=== PATIENT | female | born 1950 | race Caucasian/White ===

== ENCOUNTER → 2021-06-14 | Outpatient (CLI) | payer MEDICARE ==
--- NOTE | 2021-06-16 15:03 | MM ---
Reason for exam: screening (asymptomatic). Last mammogram was performed 14 years and 4 months ago. History: Patient is postmenopausal. Family history of breast cancer in mother at age 65, breast cancer in maternal aunt at age 55, and breast cancer in maternal uncle. Benign excisional biopsy of the left breast, 2005. Benign excisional biopsy of the left breast, 1990. Physical Findings: A clinical breast exam by your physician is recommended on an annual basis and results should be correlated with mammographic findings. MG 3D Screening Mammo W/Cad Bilateral CC and MLO view(s) were taken. Prior study comparison: February 14, 2007, mammogram, performed at [facility]. There are scattered fibroglandular densities. Post surgical change left breast. No significant changes when compared with prior studies. ASSESSMENT: Negative, BI-RAD 1 RECOMMENDATION: Routine screening mammogram of both breasts in 1 year.
== END | disposition home or self-care (01) ==
LOC: RADMAMWWP 14:12
PROVIDERS: ATTEND Family Medicine
DX: Z12.31 Encounter for screening mammogram for malignant neoplasm of breast (principal); Z80.3 Family history of malignant neoplasm of breast; Z78.0 Asymptomatic menopausal state
CPT/HCPCS: 77063; 77067

== ENCOUNTER → 2021-11-08 | Outpatient (CLI) | payer MEDICARE ==
--- NOTE | 2021-11-08 10:21 | US ---
EXAMINATION TYPE: US pelvis complete transvag DATE OF EXAM: 11/08/2021 COMPARISON: NONE CLINICAL HISTORY: R10.30. Pain throughout pelvis. . Hx 1 miscarriage. TECHNIQUE: Transvaginal (TV) and Transabdominal (TA) . Transabdominal sonographic images of the pel vis were acquired. Transvaginal sonographic images were medically necessary to better assess the fol lowing anatomy: Ovaries, endometrium. Date of LMP: Age 54. EXAM MEASUREMENTS: Uterus: 6.7 x 3.9 x 2.4 cm Endometrial Stripe: 0.42 cm 1. Uterus: Anteverted Appears heterogeneous. Hyperechoic area seen in cervix: 0.1 x 0.1 x 0.1 cm. H ypoechoic area seen in cervix: 0.3 x 0.6 x 0.6 cm. Slightly limited visibility of cervix due to shad owing. 2. Endometrium: Measures 0.42 cm. 3. Right Ovary: Not visualized. 4. Left Ovary: Not visualized. 5. Bilateral Adnexa: Appear wnl. Bowel peristalsis seen throughout. 6. Posterior cul-de-sac: Fluid seen: 1.3 x 1.8 x 0.7 cm. IMPRESSION: 1. Small amount of free fluid within the cul-de-sac. 2. Limited visualization due to bowel gas. Ovaries are not identified. 3. Punctate echogenic foci within the region of the cervix uncertain etiology. Consider calcification . Complementary imaging could be considered such as MRI.
--- NOTE | 2021-11-08 10:45 | US ---
EXAMINATION TYPE: US abdomen complete DATE OF EXAM: 11/08/2021 COMPARISON: NONE CLINICAL HISTORY: R10.30. Pain. EXAM MEASUREMENTS: Liver Length: 13.5 cm Gallbladder Wall: 0.19 cm CBD: 0.56 cm Spleen: 9.2 cm Right Kidney: 11.2 x 5.2 x 4.1 cm Left Kidney: 11.9 x 5.2 x 4.3 cm Limited due to gas. Pancreas: Duct measures 2 mm at body which is normal. Liver: Appears wnl. Gallbladder: Hyperechoic focus seen: 1.0 x 1.2 x 0.9 cm. And is likely a shadowing gallstone. Evidence for sonographic Anderson's sign: No CBD: Measures upper limits of normal. Spleen: Appears wnl. Right Kidney: Renal pelvis appears dilated. Hyperechoic focus seen lower pole: 1.1 x 0.9 x 0.8 cm. Anechoic area seen lower pole: 1.2 x 1.2 x 1.0 cm. Left Kidney: Renal pelvis appears dilated. Two hyperechoic foci seen, largest measures: 0.4 x 0.6 x 0.4 cm. Upper IVC: Appears wnl. Abd Aorta: Proximal appears to be ectatic measuring 2.6 cm AP at proximal segment. IMPRESSION: 1. Cholelithiasis.
== END | disposition home or self-care (01) ==
LOC: RADUSWWP 08:56
PROVIDERS: ATTEND Family Medicine
DX: K80.20 Calculus of gallbladder without cholecystitis without obstruction (principal); R93.89 Abnormal findings on diagnostic imaging of other specified body structures
CPT/HCPCS: 76700; 76830; 76856

== ENCOUNTER → 2021-12-08 | Outpatient (CLI) | payer MEDICARE ==
--- NOTE | 2021-12-08 10:58 | CT ---
EXAMINATION TYPE: CT ChestAbdPelvis w con, CT chest wo con DATE OF EXAM: 12/08/2021 COMPARISON: Ultrasound abdomen and pelvis November 08, 2021 HISTORY: Abnormal weight loss, Abdominal pain (accession [id number]), COPD (accession [id number]) CT DLP: 483.4 (accession [id number]), 114.90 (accession [id number]) mGycm. Automated Exposure Control for Dose Reduction was Utilized. CONTRAST: CT thorax without contrast. CT scan of the thorax, abdomen and pelvis is performed with oral and with IV Contrast, patient inject ed with 100 mL of Isovue 300. FINDINGS: LUNGS: The lungs are grossly clear, there is no concerning parenchymal mass or nodule identified. T here is no pleural effusion or pneumothorax seen. The tracheobronchial tree is patent. MEDIASTINUM: There are no greater than 1 cm hilar or mediastinal lymph nodes. Small to moderate size pericardial effusion is seen greatest inferiorly measuring up to 2.5 cm axial image 44 series 2. Mil d cardiomegaly. Mild coronary artery calcifications. Dilated debris-filled esophagus with contrast distally OTHER: Bilateral inverted nipples. LIVER/GB: No biliary dilatation. PANCREAS: No significant abnormality is seen. SPLEEN: No significant abnormality is seen. ADRENALS: No significant abnormality is seen. KIDNEYS: There is 3-4 mm nonobstructing calculus upper pole left kidney coronal image 59. There is la rger 8 to 9 mm calculus lower pole right kidney coronal image 46. A few additional scattered small le ft-sided renal calculi are seen. There is 8 mm benign-appearing thin-walled cyst posteriorly in the r ight kidney lower pole level series 4 image 33. Symmetric cortical medullary uptake and excretion is seen. BOWEL: Oral contrast reaches level of the mid transverse colon. No suspicious small or large bowel di latation. Moderate fecal prominence in the transverse colon. Evaluation is suboptimal as patient has little intra-abdominal fat. GENITAL ORGANS: Anteverted small size uterus. LYMPH NODES: No greater than 1cm abdominal or pelvic lymph nodes are appreciated. OSSEOUS STRUCTURES: Osseous structures are demineralized. Nonspecific tiny sclerotic focus T8 vertebr a coronal image 57 favors benign bone island. Facet arthropathy lower lumbar spine. OTHER: No significant additional abnormality is seen. IMPRESSION: 1. Mild to moderate colonic fecal stasis. No bowel obstruction. 2. No suspicious mass or adenopathy to suggest malignancy. 3. Bilateral renal calculi. 4. Abnormal esophagus suggesting severe dysmotility and/or gastroesophageal reflux. Correlate clinica lly. 5. Small to moderate-sized pericardial effusion.
== END | disposition home or self-care (01) ==
LOC: RADCTMAIN 07:27
PROVIDERS: ATTEND Internal Medicine Pulmonary Disease
DX: N20.0 Calculus of kidney (principal); I31.3 Pericardial effusion (noninflammatory); K59.89 Other specified functional intestinal disorders
CPT/HCPCS: 71250; 71260; 74177; 36415; Q9967

== ENCOUNTER → 2021-12-08 | Outpatient (CLI) | payer MEDICARE ==
[2021-12-08 08:18] LABS: African American GFR (CKD) >90 (>60 ml/min/1.73 sqM); Blood Urea Nitrogen 16 mg/dL (7-17); Non-African American GFR(CKD) 81 (>60 ml/min/1.73 sqM)
== END | disposition home or self-care (01) ==
LOC: RADCTMAIN 07:25
PROVIDERS: ATTEND Family Medicine
DX: R63.4 Abnormal weight loss (principal)
CPT/HCPCS: 82565; 84520

== ENCOUNTER 2022-03-15 08:34 | Day surgery (SDC) | payer MEDICARE ==
[2022-03-13 08:44] VITALS: BMI 23.6
--- NOTE | 2022-03-15 08:05 | P.GSHP ---
History of Present Illness H&P Date: 03/15/22 CHIEF COMPLAINT: Colon screen HISTORY OF PRESENT ILLNESS: The patient is a 71-year-old female who presents for colon screen. Lower endoscopy was offered for further evaluation and management. PAST MEDICAL HISTORY: Please see list. PAST SURGICAL HISTORY: Please see list. MEDICATIONS: Please see list. ALLERGIES: Please see list. SOCIAL HISTORY: No illicit drug use FAMILY HISTORY: No reports of Crohn disease or ulcerative colitis. REVIEW OF ORGAN SYSTEMS: CONSTITUTIONAL: No reports of fevers or chills. PHYSICAL EXAM: VITAL SIGNS: Stable GENERAL: Well-developed pleasant in no acute distress. HEENT: No scleral icterus. Extraocular movements grossly intact. Moist buccal mucosa. NECK: Supple without lymphadenopathy. CHEST: Unlabored respirations. Equal bilateral excursions. CARDIOVASCULAR: Regular rate and rhythm. Distal 2+ pulses. ABDOMEN: Soft, nontender, nondistended. MUSCULOSKELETAL: No clubbing, cyanosis, or edema. ASSESSMENT: 1. Colon screen. PLAN: 1. Recommend proceeding with a lower endoscopy Past Medical History Past Medical History: GERD/Reflux Additional Past Medical History / Comment(s): migraines, food gets stuck when swallowing, unexplained wt loss, hx episodes of lower abdomen pain, hemmorhoids, gallstone, History of Any Multi-Drug Resistant Organisms: None Reported Past Surgical History: Breast Surgery Additional Past Surgical History / Comment(s): left breast lumpectomy x 2, Past Anesthesia/Blood Transfusion Reactions: No Reported Reaction Smoking Status: Former smoker - Past Family History Brother(s) Family Medical History: Pulmonary Embolus Medications and Allergies Home Medications Medication Instructions Recorded Confirmed Type Omeprazole Magnesium [PriLOSEC] 20 mg PO QAM 11/04/21 03/13/22 History Multivit-Min/FA/Lycopen/Lutein 1 each PO DAILY 03/13/22 03/13/22 History [Centrum Silver Tablet] Allergies Allergy/AdvReac Type Severity Reaction Status Date / Time No Known Allergies Allergy Verified 03/13/22 08:36
[~2022-03-15 08:34] MED LIST: LACTATED RINGERS 1,000 ML IV SCH; LIDOCAINE 1% (10MG/ML) FOR IV START INTRADERMA PRN
[2022-03-15 09:18] VITALS: RESP 16; TEMP 98.4
[2022-03-15] MEDS ORDERED: PROPOFOL 10 MG/ML 20 ML VIAL IV ONE (09:23)
--- NOTE | 2022-03-15 10:27 | P.PCN ---
Date of Procedure: 03/15/22 Description of Procedure: PREOPERATIVE DIAGNOSIS: Colonoscopy screening POSTOPERATIVE DIAGNOSIS: Tubular adenoma transverse colon Tubular adenoma sigmoid colon Sigmoid diverticulosis Internal hemorrhoids, grade 4 External hemorrhoids, grade 4 OPERATION: Colonoscopy to the ileocecal valve and appendiceal orifice, cecum Colonoscopy with hot snare polypectomy Colonoscopy with cold forceps biopsy SURGEON: Mignon Link MD. ANESTHESIA: MAC. INDICATIONS: The patient is an 71-year-old female who presents for colonoscopy screening. Benefits and risks were described and informed consent was obtained. DESCRIPTION OF PROCEDURE: The patient had undergone Sutab prep. The patient had been brought into the operating room and laid in the left lateral decubitus position. After adequate intravenous sedation, the rectum was examined with 2% lidocaine jelly. The prostate was unremarkable. External hemorrhoids were encountered. The rectal tone was within normal limits. No lesions were palpated in the rectal vault. An Olympus colonoscope was advanced until the cecum, ileocecal valve and appendi ceal orifice were clearly viewed. The prep was fair. Sigmoid diverticulosis was encountered. Colonic polyps were found and removed. No evidence of focal colitis was found. Retroflexion of the scope demonstrated grade 2 internal hemorrhoids without active bleeding or inflammation. The colon was desufflated. The patient had tolerated the procedure well. Withdrawal time was over 6 minutes. FINDINGS: Aronchick preparation quality scale 1 (1-5) Internal hemorrhoids, grade 4 with recent inflammation and bleeding External hemorrhoids, grade 4. No arteriovenous malformations. Sigmoid diverticulosis Removal of 5 polyps: - Snare polypectomy 20 cm from the anal verge, 5 mm tubulovillous adenoma polyp, sigmoid colon - Snare polypectomy 15 x 2 cm from the anal verge, 4 to 5 mm flat villous alisha noma polyp, sigmoid colon - Snare polypectomy at 10 cm from the anal verge, 4 mm polyp, sigmoid colon - Cold forceps biopsy at mid transverse colon, 5 mm polyp. No focal colitis. RECOMMENDATIONS: Repeat colonoscopy in 3 years, 2024 Plan - Discharge Summary New Discharge Prescriptions: Continue Omeprazole Magnesium [PriLOSEC] 20 mg PO QAM Multivit-Min/FA/Lycopen/Lutein [Centrum Silver Tablet] 1 each PO DAILY Discharge Medication List Omeprazole Magnesium [PriLOSEC] 20 mg PO QAM 11/04/21 [History] Multivit-Min/FA/Lycopen/Lutein [Centrum Silver Tablet] 1 each PO DAILY 03/13/22 [History] Follow up Appointment(s)/Referral(s): Mignon Link MD [STAFF PHYSICIAN] - As Needed Patient Instructions/Handouts: *Surgery [facility] - (Anesthesia) Endoscopy Discharge Instructions, Diverticulosis (DC), Colorectal Polyps (GEN), Diverticulosis Diet (GEN), Colonoscopy (DC) Activity/Diet/Wound Care/Special Instructions: Colonoscopy in 3 years, 2024 Discharge Disposition: HOME SELF-CARE
[2022-03-15 10:52] VITALS: BP 163/86; PULSE 71
== END 2022-03-15 10:50 | disposition home or self-care (01) ==
LOC: ORWHC2ENDO 08:34
PROVIDERS: ATTEND Surgery Plastic and Reconstructive Surgery
DX: Z12.11 Encounter for screening for malignant neoplasm of colon (principal); D12.3 Benign neoplasm of transverse colon; K63.5 Polyp of colon; K57.30 Diverticulosis of large intestine without perforation or abscess without bleeding; K64.3 Fourth degree hemorrhoids; K21.9 Gastro-esophageal reflux disease without esophagitis; F17.200 Nicotine dependence, unspecified, uncomplicated; G43.909 Migraine, unspecified, not intractable, without status migrainosus; Z79.899 Other long term (current) drug therapy; Z82.49 Family history of ischemic heart disease and other diseases of the circulatory system
CPT/HCPCS: 88305; 45380; 45385; J2704

== ENCOUNTER 2022-05-04 07:57 | Day surgery (SDC) | payer MEDICARE ==
--- NOTE | 2022-05-04 07:41 | P.GSHP ---
History of Present Illness H&P Date: 05/04/22 CHIEF COMPLAINT: GERD HISTORY OF PRESENT ILLNESS: The patient is a 72-year-old female who presents reports gastroesophageal reflux disease. Upper endoscopy was offered for further evaluation and management. PAST MEDICAL HISTORY: Please see list. PAST SURGICAL HISTORY: Please see list. MEDICATIONS: Please see list. ALLERGIES: Please see list. SOCIAL HISTORY: No illicit drug use FAMILY HISTORY: No reports of Crohn disease or ulcerative colitis. REVIEW OF ORGAN SYSTEMS: CONSTITUTIONAL: No reports of fevers or chills. GI: Denies any blood in stools or constipation. PHYSICAL EXAM: VITAL SIGNS: Stable GENERAL: Well-developed and pleasant in no acute distress. HEENT: No scleral icterus. Extraocular movements grossly intact. Moist buccal mucosa. NECK: Supple without lymphadenopathy. CHEST: Unlabored respirations. Equal bilateral excursions. CARDIOVASCULAR: Regular rate and rhythm. Distal 2+ pulses. ABDOMEN: Soft, nondistended. MUSCULOSKELETAL: No clubbing, cyanosis, or edema. ASSESSMENT: 1. Gastroesophageal reflux disease PLAN: 1. Recommend proceeding with an upper endoscopy Past Medical History Past Medical History: GERD/Reflux Additional Past Medical History / Comment(s): MigraineS. Food gets stuck when swallowing. hx ABD PAIN. HEMMROIDS gallstone, History of Any Multi-Drug Resistant Organisms: None Reported Past Surgical History: Breast Surgery Additional Past Surgical History / Comment(s): left breast lumpectomy x 2. Past Anesthesia/Blood Transfusion Reactions: No Reported Reaction Past Psychological History: No Psychological Hx Reported Smoking Status: Former smoker Past Alcohol Use History: Occasional Additional Past Alcohol Use History / Comment(s): last smoked 03/12/22, started smoking age 25, on and off Past Drug Use History: None Reported - Past Family History Brother(s) Family Medical History: Pulmonary Embolus Medications and Allergies Home Medications Medication Instructions Recorded Confirmed Type Omeprazole Magnesium [PriLOSEC] 20 mg PO QAM 11/04/21 05/02/22 History Allergies Allergy/AdvReac Type Severity Reaction Status Date / Time No Known Allergies Allergy Verified 05/02/22 11:12
[~2022-05-04 07:57] MED LIST changes: -LIDOCAINE 1% (10MG/ML) FOR IV START INTRADERMA PRN
[2022-05-04] MEDS ORDERED: LIDOCAINE 1% (10MG/ML) FOR IV START INTRADERMA ONE (08:30)
[2022-05-04 08:37] VITALS: RESP 16; TEMP 97.5
[2022-05-04] MEDS ORDERED: LIDOCAINE 2% INJ 20 MG/ML (2 ML VIAL) ONE (08:43)
[2022-05-04] MEDS ORDERED: PROPOFOL 10 MG/ML 20 ML VIAL IV ONE (08:43)
[2022-05-04 09:11] VITALS: BP 125/78; PULSE 70
--- NOTE | 2022-05-04 09:32 | P.PCN ---
Date of Procedure: 05/04/22 Description of Procedure: PREOPERATIVE DIAGNOSIS: Gastroesophageal reflux disease. POSTOPERATIVE DIAGNOSIS: Gastroesophageal reflux disease. Acute gastric ulcers with bleeding Diaphragmatic hiatal hernia Gastritis of bleeding Esophageal candidiasis OPERATION: Esophagogastroduodenoscopy with biopsies along antrum, duodenum, and esophagus SURGEON: Mignon Link MD ANESTHESIA: MAC. INDICATIONS: The patient is a 72-year-old female who presents with reflux disease. Benefits and risks of the procedure were described. Informed consent was obtained. DESCRIPTION: The patient was brought into the endoscopy suite and laid in the left lateral decubitus position. An Olympus gastroscope was passed along the posterior oropharynx down to the distal esophagus where the squamocolumnar junction was encountered at 37 cm from the incisors. The stomach was entered and no bile reflux was found. Additional findings are listed below. Biopsies with cold forceps were obtained of the antrum. The first through third portion of the duodenum was examined. Retroflexion of the scope confirmed Hill grade 3 lower esophageal valve. The squamocolumnar junction demonstrated LA grade B erosive esophagitis. The stomach was desufflated. The patient tolerated the procedure well. FINDINGS: Squamocolumnar junction 37 cm from the incisors. Diaphragmatic hiatus at 40 cm. Hiatal hernia, 3 cm Hill grade 3 lower esophageal valve. LA grade B erosive esophagitis. Duodenitis with cold biopsies obtained Chronic gastritis with recent bleed and acute gastric ulcers with superficial bleeding at antrum Esophageal deposits suspicious for candidiasis RECOMMENDATIONS: Protonix 40 mg daily for daily for 2 weeks Carafate 1 g twice a day for 2 weeks Recommend hiatal hernia repair Plan - Discharge Summary Discharge Rx Participant: No New Discharge Prescriptions: New Sucralfate [Carafate] 1 gm PO BID #30 tablet Pantoprazole [Protonix] 40 mg PO DAILY #14 tab Discontinued Omeprazole Magnesium [PriLOSEC] 20 mg PO QAM Discharge Medication List Pantoprazole [Protonix] 40 mg PO DAILY #14 tab 05/04/22 [Rx] Sucralfate [Carafate] 1 gm PO BID #30 tablet 05/04/22 [Rx] Follow up Appointment(s)/Referral(s): Mignon Link MD [STAFF PHYSICIAN] - 05/16/22 Patient Instructions/Handouts: *Surgery [facility] - (Anesthesia) Endoscopy Discharge Instructions, Peptic Ulcer (GEN), Diet for Stomach Ulcers and Gastritis (ED), Upper Endoscopy (DC) Discharge Disposition: HOME SELF-CARE
== END 2022-05-04 09:48 | disposition home or self-care (01) ==
LOC: ORWHC2ENDO 07:57
PROVIDERS: ATTEND Surgery Plastic and Reconstructive Surgery
DX: K29.60 Other gastritis without bleeding (principal); K21.00 Gastro-esophageal reflux disease with esophagitis, without bleeding; K29.80 Duodenitis without bleeding; K44.9 Diaphragmatic hernia without obstruction or gangrene; K25.0 Acute gastric ulcer with hemorrhage; G43.909 Migraine, unspecified, not intractable, without status migrainosus; R13.10 Dysphagia, unspecified; K80.80 Other cholelithiasis without obstruction; Z87.891 Personal history of nicotine dependence; F10.99 Alcohol use, unspecified with unspecified alcohol-induced disorder; Z79.899 Other long term (current) drug therapy; Z83.2 Family history of diseases of the blood and blood-forming organs and certain disorders involving the immune mechanism
CPT/HCPCS: 88305; 88312; 43239; J2704; J2001

== ENCOUNTER 2022-07-21 08:56 | Emergency (ER) | payer MEDICARE ==
[2022-07-21 09:03] VITALS: TEMP 97
--- NOTE | 2022-07-21 09:34 | ED ---
General Adult HPI - General Chief complaint: Fall Stated complaint: fall Time Seen by Provider: 07/21/22 09:04 Source: patient, RN notes reviewed Mode of arrival: ambulatory Limitations: no limitations - History of Present Illness Initial comments: Patient is a pleasant 72-year-old female presenting to the emergency department for fall. Patient was walking her dog yesterday. Patient was pulled to the ground and did strike her head. No loss of consciousness. Patient has been somewhat lightheaded since that time. Patient did have some abrasions to her fingers. Patient did strike her chest when she fell as well. Patient did go out to dinner and did have one half cocktails. Patient did feel more lightheaded than expected following that. Patient did have 2 more falls following that time, one getting out of the car and one in the house. Patient never lost consciousness. No syncope. Patient did strike her head again however not hard. Patient does not have significant headache. No visual changes. No weakness. Patient was somewhat emotional and tearful through the night. - Related Data Previous Rx's Medication Instructions Recorded Pantoprazole [Protonix] 40 mg PO DAILY #14 tab 05/04/22 Sucralfate [Carafate] 1 gm PO BID #30 tablet 05/04/22 Fluconazole 200 mg PO DAILY #21 tab 05/16/22 Allergies Allergy/AdvReac Type Severity Reaction Status Date / Time No Known Allergies Allergy Verified 07/21/22 09:03 Review of Systems ROS Statement: Those systems with pertinent positive or pertinent negative responses have been documented in the HPI. ROS Other: All systems not noted in ROS Statement are negative. Constitutional: Denies: fever Eyes: Denies: eye pain ENT: Denies: ear pain Respiratory: Denies: cough Cardiovascular: Denies: chest pain Endocrine: Denies: fatigue Gastrointestinal: Denies: abdominal pain Genitourinary: Denies: dysuria Musculoskeletal: Denies: back pain Skin: Denies: rash Neurological: Reports: as per HPI. Denies: headache, weakness Past Medical History Past Medical History: GERD/Reflux Additional Past Medical History / Comment(s): MigraineS. Food gets stuck when swallowing. hx ABD PAIN. HEMMROIDS gallstone, History of Any Multi-Drug Resistant Organisms: None Reported Past Surgical History: Breast Surgery Additional Past Surgical History / Comment(s): left breast lumpectomy x 2. Past Anesthesia/Blood Transfusion Reactions: No Reported Reaction Past Psychological History: No Psychological Hx Reported Smoking Status: Current every day smoker Past Alcohol Use History: Occasional Past Drug Use History: None Reported - Past Family History Brother(s) Family Medical History: Pulmonary Embolus General Exam Limitations: no limitations General appearance: alert, in no apparent distress Head exam: Present: normocephalic Eye exam: Present: normal appearance, PERRL, EOMI ENT exam: Present: normal oropharynx Neck exam: Present: normal inspection. Absent: tenderness Respiratory exam: Present: normal lung sounds bilaterally Cardiovascular Exam: Present: regular rate, normal rhythm GI/Abdominal exam: Present: soft. Absent: tenderness, guarding Extremities exam: Present: normal inspection, full ROM. Absent: tenderness, calf tenderness Neurological exam: Present: alert, oriented X3, CN II-XII intact Expanded Neurological exam: Present: protecting the airway Speech: Present: fluid speech Cranial nerves: EOM's Intact: Normal Sensory exam: Upper Extremity Light Touch: Normal, Lower Extremity Light Touch: Normal Motor strength exam: RUE: 5, LUE: 5, RLE: 5, LLE: 5 Eye Response: (4) open spontaneously Motor Response: (6) obeys commands Verbal Response: (5) oriented Psychiatric exam: Present: normal affect, normal mood Skin exam: Present: normal color Course Vital Signs 07/21/22 09:00 Temperature 97 F L Pulse Rate 56 L Respiratory 20 Rate O2 Sat by Pulse 99 Oximetry Medical Decision Making - Medical Decision Making Patient reevaluated and resting comfortably in bed. Patient and family updated on results. Patient was ambulated by nursing staff reported the patient did fine. Disposition Clinical Impression: Head contusion Disposition: HOME SELF-CARE Condition: Stable Instructions (If sedation given, give patient instructions): Head Injury (ED), Concussion (ED) Additional Instructions: [id number] Tylenol as needed. Please do follow-up with primary care physician in the next day or 2 for recheck. Avoid activities with potential injury, such as driving or other. Return for weakness, confusion, speech problems, worsening or change in symptoms or any other concerns. Is patient prescribed a controlled substance at d/c from ED?: No Referrals: Antwan Huggins III, MD [Primary Care Provider] - 1-2 days Time of Disposition: 10:16
--- NOTE | 2022-07-21 10:03 | XR ---
EXAMINATION TYPE: XR chest 2V DATE OF EXAM: 07/21/2022 COMPARISON: Chest CT December 08, 2021 HISTORY: Fall injury with pain TECHNIQUE: Frontal and lateral views of the chest are obtained. FINDINGS: There is no suspicious focal air space opacity, pleural effusion, or pneumothorax seen. T he cardiac silhouette size is stable and mildly enlarged. The osseous structures are demineralized. IMPRESSION: Mild Cardiomegaly without acute pulmonary process.
--- NOTE | 2022-07-21 10:04 | CT ---
EXAMINATION TYPE: CT brain wo con CT DLP: 1143.4 mGycm, Automated exposure control for dose reduction was used. DATE OF EXAM: 07/21/2022 9:56 AM COMPARISON: None. CLINICAL INDICATION:Female, 72 years old with history of fall, TECHNIQUE: Brain: Multiple axial CT images of the brain were obtained without IV contrast. Coronal and sagittal reformats reviewed. FINDINGS: Brain: Extra-axial spaces: No abnormal extra-axial fluid collections. Ventricular system: Within normal limits Cerebral parenchyma: No acute intraparenchymal hemorrhage or mass effect. The boucher-white junction is well differentiated. Scattered hypoattenuating areas are seen within the white matter. Cervical spi ne loss. Cerebellum: Unremarkable. Mass effect: No evidence of midline shift. Intracranial vasculature: Atherosclerotic calcifications of the intracranial vessels. Soft tissues: Normal. Calvarium/osseous structures: No depressed skull fracture. Paranasal sinuses and mastoid air cells: Clear Visualized orbits: Orbital contents are intact. IMPRESSION: 1. No acute intracranial process. 2. Nonspecific white matter changes, likely secondary to chronic small vessel ischemic disease.
[2022-07-21] MEDS ORDERED: DIPH,PERTUS(ACELL)TETVAC-LF 0.5 ML VIAL IM ONE (10:12)
[2022-07-21 10:30] VITALS: BP 126/78; PULSE 80; RESP 18
== END 2022-07-21 10:30 | disposition home or self-care (01) ==
LOC: EC 08:56
DX: S00.93XA Contusion of unspecified part of head, initial encounter (principal); Z23 Encounter for immunization; K21.9 Gastro-esophageal reflux disease without esophagitis; F17.200 Nicotine dependence, unspecified, uncomplicated; Z79.899 Other long term (current) drug therapy; W01.198A Fall on same level from slipping, tripping and stumbling with subsequent striking against other object, initial encounter
CPT/HCPCS: 70450; 71046; 90471; 90715; 99284

== ENCOUNTER → 2022-08-23 | Outpatient (CLI) | payer MEDICARE ==
--- NOTE | 2022-08-24 20:05 | MM ---
Reason for Exam: Screening (asymptomatic). Last mammogram was performed 1 year(s) and 2 month(s) ago. Patient History: Menarche at age 14. First Full-Term at age 26. Postmenopausal. 2005, Benign Excisional Biopsy on the left side. 1990, Benign Excisional Biopsy on the left side. Maternal aunt had breast cancer, age 55. Maternal uncle had breast cancer. Mother had breast cancer, age 65. Risk Values: Marisa 5 year model risk: 4.9%. NCI Lifetime model risk: 13.9%. Prior Study Comparison: 02/14/2007 Screening Mammogram, [facility]. 06/14/2021 Bilateral Screening Mammogram, [facility]. Tissue Density: There are scattered fibroglandular densities. Findings: Analyzed By CAD. Postexcisional changes on the left redemonstrated. Irregular asymmetric density medial right CC view at a middle depth appears more defined and incompletely disperses on 3-D images. However, no clear correlate on the MLO view. Findings may represent superimposition shadow but further evaluation is recommended. Otherwise, no significant change. Overall Assessment: Incomplete: need additional imaging evaluation, BI-RAD 0 Management: Special View Mammogram of the right breast. Diagnostic Breast Ultrasound of the right breast. Including spot 3-D CC, 3-D CC rolled medial, and 3-D ML views. Ultrasound lateral half of the right breast. Particular attention to location identified on further workup images. [facility] will attempt to contact patient to return for supplemental views and ultrasound if indicated. Electronically signed and approved by: Tereza Guan M.D. Radiologist
== END | disposition home or self-care (01) ==
LOC: RADMAMWWP 14:54
PROVIDERS: ATTEND Family Medicine
DX: Z12.31 Encounter for screening mammogram for malignant neoplasm of breast (principal); Z78.0 Asymptomatic menopausal state; Z80.3 Family history of malignant neoplasm of breast; Z98.890 Other specified postprocedural states
CPT/HCPCS: 77063; 77067

== ENCOUNTER → 2022-09-01 | Outpatient (CLI) | payer MEDICARE ==
--- NOTE | 2022-09-01 09:01 | MM ---
Reason for Exam: Additional evaluation requested from abnormal screening. Last screening mammogram was performed less than 1 month ago. Patient History: Menarche at age 14. First Full-Term at age 26. Postmenopausal. 2005, Benign Excisional Biopsy on the left side. 1990, Benign Excisional Biopsy on the left side. Maternal aunt had breast cancer, age 55. Maternal uncle had breast cancer. Mother had breast cancer, age 65. Risk Values: Marisa 5 year model risk: 4.9%. NCI Lifetime model risk: 13.9%. Prior Study Comparison: 02/14/2007 Screening Mammogram, [facility]. 06/14/2021 Bilateral Screening Mammogram, [facility]. 08/23/2022 Bilateral MG 3D screening mammo w/cad, [facility]. Tissue Density: Right: There are scattered fibroglandular densities. Findings: Analyzed By CAD. Previously seen asymmetric density on the CC view middle depth of the right breast does not persist with compression. Overall Assessment: Negative, BI-RAD 1 Management: Screening Mammogram of both breasts in 1 year. A clinical breast exam by your physician is recommended on an annual basis and results should be correlated with mammographic findings. This exam should not preclude additional follow-up of suspicious palpable abnormalities. Results were given to the patient verbally at the time of exam. Electronically signed and approved by: Baljit Jennings D.O.
== END | disposition home or self-care (01) ==
LOC: RADMAMWWP 08:34
PROVIDERS: ATTEND Family Medicine
DX: R92.8 Other abnormal and inconclusive findings on diagnostic imaging of breast (principal); Z78.0 Asymptomatic menopausal state; Z80.3 Family history of malignant neoplasm of breast; Z98.890 Other specified postprocedural states
CPT/HCPCS: 77065; G0279; 77061

== ENCOUNTER 2023-06-06 20:22 | Emergency (ER) | payer MEDICARE ==
[2023-06-06 20:41] VITALS: TEMP 97.8
[2023-06-06] MEDS ORDERED: SODIUM CHLORIDE 0.9% 1,000 ML IV STA (21:09)
[2023-06-06] MEDS ORDERED: ONDANSETRON 4 MG/2 ML VIAL IVP STA (21:09)
[2023-06-06] MEDS ORDERED: MORPHINE SULFATE 2 MG/ML SYRINGE IVP STA (21:10)
--- NOTE | 2023-06-06 21:18 | ED ---
General Adult HPI - General Chief complaint: Nausea/Vomiting/Diarrhea Stated complaint: Abd Pain,Diarrhea Time Seen by Provider: 06/06/23 21:02 Source: patient, RN notes reviewed, old records reviewed Mode of arrival: ambulatory Limitations: no limitations - History of Present Illness Initial comments: 73-year-old female presenting with nausea vomiting and diarrhea. Patient's symptoms have been present throughout the day today. She's had 2 episodes of vomiting and 4 episodes of diarrhea. Nonbloody. She's had ongoing abdominal pain which is lower abdomen for the past 2 years and is following with gastroenterology. She scheduled for an outpatient computed tomography scan tomorrow. No chest pain. She's had subjective fever and chills. - Related Data Previous Rx's Medication Instructions Recorded Pantoprazole [Protonix] 40 mg PO DAILY #14 tab 05/04/22 Sucralfate [Carafate] 1 gm PO BID #30 tablet 05/04/22 Fluconazole 200 mg PO DAILY #21 tab 05/16/22 Amoxic-Pot Clav 875-125Mg 1 tab PO Q12HR 10 Days #20 tab 06/07/23 [Augmentin 875-125] HYDROcodone/APAP 5-325MG [Edwards 1 tab PO Q6HR PRN #12 tab 06/07/23 5-325] Potassium Chloride ER [K-Dur 20] 20 meq PO DAILY 7 Days #7 tab 06/07/23 Allergies Allergy/AdvReac Type Severity Reaction Status Date / Time No Known Allergies Allergy Verified 07/21/22 09:03 Review of Systems ROS Statement: Those systems with pertinent positive or pertinent negative responses have been documented in the HPI. ROS Other: All systems not noted in ROS Statement are negative. Past Medical History Past Medical History: GERD/Reflux Additional Past Medical History / Comment(s): MigraineS. Food gets stuck when swallowing. hx ABD PAIN. HEMMROIDS gallstone, History of Any Multi-Drug Resistant Organisms: None Reported Past Surgical History: Breast Surgery Additional Past Surgical History / Comment(s): left breast lumpectomy x 2. Past Anesthesia/Blood Transfusion Reactions: No Reported Reaction Past Psychological History: No Psychological Hx Reported Smoking Status: Current every day smoker Past Alcohol Use History: Occasional Past Drug Use History: None Reported - Past Family History Brother(s) Family Medical History: Pulmonary Embolus General Exam Limitations: no limitations General appearance: alert, in no apparent distress Head exam: Present: atraumatic, normocephalic Eye exam: Present: normal appearance, PERRL ENT exam: Present: normal exam Neck exam: Present: normal inspection. Absent: tenderness, meningismus Respiratory exam: Present: normal lung sounds bilaterally. Absent: respiratory distress, wheezes Cardiovascular Exam: Present: regular rate, normal rhythm GI/Abdominal exam: Present: tenderness. Absent: distended Neurological exam: Present: alert, oriented X3, CN II-XII intact. Absent: motor sensory deficit Psychiatric exam: Present: normal affect, normal mood Skin exam: Present: warm, dry, intact Course Vital Signs 06/06/23 06/07/23 06/07/23 20:34 01:02 02:35 Temperature 97.8 F Pulse Rate 106 H 98 90 Respiratory 18 20 20 Rate Blood Pressure 106/44 132/79 140/75 O2 Sat by Pulse 99 99 99 Oximetry - Reevaluation(s) Reevaluation #1: 06/07/23 01:16 Patient reevaluated, feeling significantly better. Medical Decision Making - Medical Decision Making Was pt. sent in by a medical professional or institution (, PA, DIRECTOR OF BUSINESS SYSTEMS, urgent care, hospital, or senior living...) When possible be specific @ -No Did you speak to anyone other than the patient for history (EMS, parent, family, police, friend...)? What history was obtained from this source @ -No Did you review nursing and triage notes (agree or disagree)? Why? @ -I reviewed and agree with nursing and triage notes Were old charts reviewed (outside hosp., previous admission, EMS record, old EKG, old radiological studies, urgent care reports/EKG's, senior living records)? Report findings @ -No old charts were reviewed Differential Diagnosis (chest pain, altered mental status, abdominal pain women, abdominal pain men, vaginal bleeding, weakness, fever, dyspnea, syncope, headac he, dizziness, GI bleed, back pain, seizure, CVA, palpatations, mental health, musculoskeletal)? @ -[Differential Abdominal Pain Women: Appendicitis, Cholecystitis, diverticulosis, ischemic bowel, pancreatitis, hepatitis, UTI, gastroenteritis, AAA, incarcerated hernia, bowel obstruction, constipation, inflammatory bowel, hepatitis, peptic ulcer disease, splenic infarction, perforated viscus, vulvitis, ovarian torsion, PID, kidney stone, placenta abruption, this is not meant to be an all-inclusive list EKG interpreted by me (3pts min.). @ -As above X-rays interpreted by me (1pt min.). @ -None done CT interpreted by me (1pt min.). @ CT showing severe colitis U/S interpreted by me (1pt. min.). @ -None done What testing was considered but not performed or refused? (CT, X-rays, U/S, labs)? Why? @ -None What meds were considered but not given or refused? Why? @ -None Did you discuss the management of the patient with other professionals (professionals i.e. , PA, DIRECTOR OF BUSINESS SYSTEMS, lab, RT, psych nurse, sexual assault social worker, plow mechanic, teacher, foreign service officer, disease case manager rn)? Give summary @ -No Was smoking cessation discussed for >3mins.? @ -No Was critical care preformed (if so, how long)? @ -No Were there social determinants of health that impacted care today? How? (Homelessness, low income, unemployed, alcoholism, drug addiction, transportation, low edu. Level, literacy, decrease access to med. care, fpc, rehab)? @ -No Was there de-escalation of care discussed even if they declined (Discuss DNR or withdrawal of care, Hospice)? DNR status @ -No What co-morbidities impacted this encounter? (DM, HTN, Smoking, COPD, CAD, Cancer, CVA, ARF, Chemo, Hep., AIDS, mental health diagnosis, sleep apnea, morbid obesity)? @ -None Was patient admitted / discharged? Hospital course, mention meds given and route, prescriptions, significant lab abnormalities, going to OR and other pertinent info. @ -73-year-old female with acute on chronic lower abdominal pain. Symptoms for the past 2 years. Worsening today with vomiting and diarrhea. Patient does have a leukocytosis of 18, a be reactive. No fever. CT shows severe colitis. After initial treatment of fluids and pain medication the patient feels significantly better and is eager for discharge. We'll trial oral antibiotics and pain medication. She's also given potassium replacement. She has an appointment with gastroenterology in approximately 3 weeks. Return parameters discussed. Undiagnosed new problem with uncertain prognosis? @ -No Drug Therapy requiring intensive monitoring for toxicity (Heparin, Nitro, Insulin, Cardizem)? @ -No Were any procedures done? @ -No Diagnosis/symptom? @ -[Colitis Acute, or Chronic, or Acute on Chronic? @ -Acute on chronic Uncomplicated (without systemic symptoms) or Complicated (systemic symptoms)? @ -default Side effects of treatment? @ -No Exacerbation, Progression, or Severe Exacerbation? @ -No Poses a threat to life or bodily function? How? (Chest pain, USA, MS, pneumonia, PE, COPD, DKA, ARF, appy, cholecystitis, CVA, Diverticulitis, Homicidal, Suicidal, threat to staff... and all critical care pts) @ -Low risk at this time - Lab Data Result diagrams: 06/06/23 21:34 06/06/23 22:30 Lab Results 06/06/23 06/06/23 06/06/23 Range/Units 21:34 21:34 22:30 WBC 22.9 H (3.8-10.6) k/uL RBC 5.76 H (3.80-5.40) m/uL Hgb 18.1 H (11.4-16.0) gm/dL Hct 54.1 H (34.0-46.0) % MCV 93.9 (80.0-100.0) fL MCH 31.4 (25.0-35.0) pg MCHC 33.5 (31.0-37.0) g/dL RDW 13.0 (11.5-15.5) % Plt Count 279 (150-450) k/uL MPV 10.5 Neutrophils % (Manual) 51 % Band Neuts % (Manual) 34 % Lymphocytes % (Manual) 11 % Monocytes % (Manual) 4 % Neutrophils # (Manual) 19.40 H (1.3-7.7) k/uL Lymphocytes # (Manual) 2.52 (1.0-4.8) k/uL Monocytes # (Manual) 0.92 (0-1.0) k/uL Nucleated RBCs 0 (0-0) /100 WBC Manual Slide Review Performed PT 10.6 (10.0-12.5) sec INR 1.0 (<1.2) APTT 20.2 L (22.0-30.0) sec Sodium 142 (137-145) mmol/L Potassium 2.6 L* (3.5-5.1) mmol/L Chloride 97 L (98-107) mmol/L Carbon Dioxide 30 (22-30) mmol/L Anion Gap 15 mmol/L BUN 20 H (7-17) mg/dL Creatinine 0.64 (0.52-1.04) mg/dL Est GFR (CKD-EPI)AfAm >90 (>60 ml/min/1.73 sqM) Est GFR (CKD-EPI)NonAf >90 (>60 ml/min/1.73 sqM) Glucose 141 H (74-99) mg/dL Calcium 9.1 (8.4-10.2) mg/dL Total Bilirubin 1.0 (0.2-1.3) mg/dL AST 22 (14-36) U/L ALT 13 (4-34) U/L Alkaline Phosphatase 78 (38-126) U/L Total Protein 6.2 L (6.3-8.2) g/dL Albumin 3.7 (3.5-5.0) g/dL Lipase 32 (23-300) U/L Disposition Clinical Impression: Colitis Disposition: HOME SELF-CARE Instructions (If sedation given, give patient instructions): Acute Diarrhea (ED), Colitis (ED) Prescriptions: Amoxic-Pot Clav 875-125Mg [Augmentin 875-125] 1 tab PO Q12HR 10 Days #20 tab Potassium Chloride ER [K-Dur 20] 20 meq PO DAILY 7 Days #7 tab HYDROcodone/APAP 5-325MG [Edwards 5-325] 1 tab PO Q6HR PRN #12 tab PRN Reason: Pain Is patient prescribed a controlled substance at d/c from ED?: No Referrals: None,Stated [Primary Care Provider] - 1-2 days Sulema Cantu MD [STAFF PHYSICIAN] - 1-2 days
[2023-06-06 22:19] LABS: HCT 54.1 % (34.0-46.0); HGB 18.1 gm/dL (11.4-16.0); MCH 31.4 pg (25.0-35.0); MCHC 33.5 g/dL (31.0-37.0); MCV 93.9 fL (80.0-100.0); Mean Platelet Volume 10.5; Platelet Count 279 k/uL (150-450); RBC 5.76 m/uL (3.80-5.40); WBC 22.9 k/uL (3.8-10.6)
[2023-06-06 22:20] LABS: Prothrombin Time 10.6 sec (10.0-12.5)
[2023-06-06 22:40] LABS: Partial Thromboplastin Time 20.2 sec (22.0-30.0)
[2023-06-06 23:21] LABS: Band Neutrophils % 34 %; Lymphocytes # (M) 2.52 k/uL (1.0-4.8); Monocytes # (M) 0.92 k/uL (0-1.0); Neutrophils % (M) 51 %; Nucleated Red Blood Cells 0 /100 WBC (0-0); Total Cells Counted 200
[2023-06-06 23:32] LABS: AST 22 U/L (14-36); African American GFR (CKD) >90 (>60 ml/min/1.73 sqM); Albumin 3.7 g/dL (3.5-5.0); Alkaline Phosphatase 78 U/L (38-126); Anion Gap 15 mmol/L; Blood Urea Nitrogen 20 mg/dL (7-17); Calcium 9.1 mg/dL (8.4-10.2); Carbon Dioxide 30 mmol/L (22-30); Chloride 97 mmol/L (98-107); Glucose 141 mg/dL (74-99); Lipase 32 U/L (23-300); Non-African American GFR(CKD) >90 (>60 ml/min/1.73 sqM); Sodium 142 mmol/L (137-145); Total Protein 6.2 g/dL (6.3-8.2)
[2023-06-06 23:39] LABS: Potassium 2.6 mmol/L (3.5-5.1)
[2023-06-06 23:51] LABS: ALT 13 U/L (4-34)
[2023-06-07] MEDS ORDERED: POTASSIUM CHLORIDE 10 MEQ in WATER FOR INJECTION 1 100ML.BAG IVPB SCH
--- NOTE | 2023-06-07 01:02 | CT ---
EXAM: CT Abdomen and Pelvis With Intravenous Contrast CLINICAL HISTORY: ITS.REASON CT Reason: Lower ab pain TECHNIQUE: Axial computed tomography images of the abdomen and pelvis with intravenous contrast. CTDI is 10.7 mGy and DLP is 493.6 mGy-cm. This CT exam was performed using one or more of the following dose reduction techniques: automated exposure control, adjustment of the mA and/or kV according to patient size, and/or use of iterative reconstruction technique. COMPARISON: No relevant prior studies available. FINDINGS: Lung bases: Unremarkable. No mass. No consolidation. ABDOMEN: Liver: Unremarkable. No mass. Gallbladder and bile ducts: Unremarkable. No calcified stones. No ductal dilation. Pancreas: Unremarkable. No mass. No ductal dilation. Spleen: Unremarkable. No splenomegaly. Adrenals: Unremarkable. No mass. Kidneys and ureters: Nonobstructing 5 mm RIGHT lower pole renal stone. Renal cysts. Stomach and bowel: Severe circumferential wall thickening of the transverse and ascending colon, consistent with severe colitis. No obstruction. PELVIS: Appendix: No findings to suggest acute appendicitis. Bladder: Unremarkable. No mass. Reproductive: Unremarkable as visualized. ABDOMEN and PELVIS: Intraperitoneal space: Unremarkable. No free air. No significant fluid collection. Bones/joints: Degenerative changes of the spine. No acute fracture. No dislocation. Soft tissues: Unremarkable. Vasculature: Atherosclerotic changes of the aorta. No abdominal aortic aneurysm. Lymph nodes: Unremarkable. No enlarged lymph nodes. IMPRESSION: Severe circumferential wall thickening of the transverse and ascending colon, consistent with severe colitis.
[2023-06-07 01:15] VITALS: RESP 20
[2023-06-07] MEDS ORDERED: POTASSIUM CHLORIDE ER 20 MEQ TAB.ER PO STA (01:18)
[2023-06-07 02:38] VITALS: BP 140/75; PULSE 90
== END 2023-06-07 02:37 | disposition home or self-care (01) ==
LOC: EC 20:22
DX: K52.9 Noninfective gastroenteritis and colitis, unspecified (principal); F17.200 Nicotine dependence, unspecified, uncomplicated
CPT/HCPCS: 36415; 80053; 83690; 85025; 85610; 85730; 74177; 99284; 96375 ×2; 96361; 96365; J2405; J2270; J3480; Q9967

== ENCOUNTER → 2023-06-07 | Outpatient (CLI) | payer MEDICARE | END | disposition home or self-care (01) | LOC: RADCTMAIN 08:45 | PROVIDERS: ATTEND Internal Medicine Gastroenterology | DX: Z53.9 Procedure and treatment not carried out, unspecified reason (principal) ==

== ENCOUNTER → 2023-08-02 | Outpatient (CLI) | payer MEDICARE ==
--- NOTE | 2023-08-02 21:53 | BD ---
EXAMINATION TYPE: Axial Bone Density DATE OF EXAM: 08/02/2023 CLINICAL HISTORY: 73 years old Female. ICD-10 CODE: Z78.0 ASYMPTOMATIC MENOPAUSAL STA Height: 62.2 in Weight: 110 lbs FRAX RISK QUESTIONS: Secondary Osteoporosis: Current Tobacco Use: yes RISK FACTORS HISTORY OF: Active: yes Diet low in dairy products/other sources of calcium: yes Postmenopausal woman: age 54 Take estrogen and/or progesterone medications: not now How long: control for 20 years MEDICATIONS: Additional Medications: calcium, vit d prilosec EXAM MEASUREMENTS: Bone mineral densitometry was performed using the [employer] System. Bone mineral density as measured about the Lumbar spine is: ----- L1-L4(G/cm2): 0.894 T Score Values are as follows: ----- L1: -3.0 ----- L2: -2.9 ----- L3: -2.1 ----- L4: -1.9 ----- L1-L4: -2.4 Z Score Values are as follows: ----- L1: -0.8 ----- L2: -0.7 ----- L3: 0.1 ----- L4: 0.3 ----- L1-L4: -0.2 Bone mineral density baseline Bone mineral density about the R hip (g/cm2): 0.759 Bone mineral density about the L hip (g/cm2): 0.772 T Score values are as follows: -----R Neck: -1.7 -----L Neck: -1.7 -----R Total: -2.0 -----L Total: -1.9 Z Score values are as follows: -----R Neck: 0.4 -----L Neck: 0.4 -----R Total: -0.1 -----L Total: 0.0 Bone mineral density baseline FRAX%s: The graph provided illustrates a 9.9% chance for a major osteoporotic fx and a 3.0% chance fo r the hips probability for fx in 10 years time. IMPRESSION: Osteopenia (T Score between -2.5 and -1). There is slightly increased risk of fracture and the patient may be considered for treatment. Re-Screen 2-5 years. NOTE: T-SCORE=SD OF THE YOUNG ADULT MEAN.
== END | disposition home or self-care (01) ==
LOC: RADBDWWP 16:03
PROVIDERS: ATTEND Internal Medicine
DX: Z13.820 Encounter for screening for osteoporosis (principal); M81.0 Age-related osteoporosis without current pathological fracture; M85.89 Other specified disorders of bone density and structure, multiple sites; Z78.0 Asymptomatic menopausal state
CPT/HCPCS: 77080

== ENCOUNTER → 2023-08-03 | Outpatient (CLI) | payer MEDICARE ==
--- NOTE | 2023-08-03 12:17 | NM ---
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 scrambled eggs, 1/[address], and 3 oz. of water, projection images of the abdomen were obtained 10 minutes post ingestion. Patient Emptying Values 1 Hour 28 % 2 Hours 50 % 3 Hours 64 % 4 Hours 83 % T 1/2 is 116 minutes which is slightly delayed. (Normal 60-105 minutes) Gastroesophagel reflux: None IMPRESSION: Gastric emptying: Mild delayed gastric emptying. Gastroesophageal reflux: No significant reflux identified.
== END | disposition home or self-care (01) ==
LOC: RADNMMAIN 06:50
PROVIDERS: ATTEND Internal Medicine
DX: K22.4 Dyskinesia of esophagus (principal); K30 Functional dyspepsia
CPT/HCPCS: 78264; A9541

== ENCOUNTER → 2023-09-17 | Outpatient (CLI) | payer MEDICARE ==
--- NOTE | 2023-09-18 08:41 | MM ---
Reason for Exam: Screening (asymptomatic). Last mammogram was performed 1 year(s) and 1 month(s) ago. Patient History: Menarche at age 14. First Full-Term at age 26. Postmenopausal. Patient has history of breast feeding. 2005, Benign Excisional Biopsy on the left side. 1990, Benign Excisional Biopsy on the left side. Maternal aunt had breast cancer, age 55. Maternal uncle had breast cancer. Mother had breast cancer, age 65. Risk Values: Marisa 5 year model risk: 5.0%. NCI Lifetime model risk: 13.3%. Prior Study Comparison: 06/14/2021 Bilateral Screening Mammogram, [facility]. 08/23/2022 Bilateral MG 3D screening mammo w/cad, [facility]. 09/01/2022 Right MG 3D work up w/cad RT, [facility]. Tissue Density: The breast tissue is heterogeneously dense. This may lower the sensitivity of mammography. Findings: Analyzed By CAD. There is no suspicious group of microcalcifications or new suspicious mass in either breast. Benign calcifications. Overall Assessment: Benign, BI-RAD 2 Management: Screening Mammogram of both breasts in 1 year. . Patient should continue monthly self-breast exams. A clinical breast exam by your physician is recommended on an annual basis. This exam should not preclude additional follow-up of suspicious palpable abnormalities. Note on Marisa scores and lifetime risk: 1. A Marisa score greater than 3% is considered moderate risk. If this is the case, consider specialist referral to assess eligibility for a risk reducing agent. 2. If overall lifetime risk for the development of breast cancer is 20% or higher, the patient may qualify for future screening with alternating mammogram and breast MRI. Electronically signed and approved by: Odell Young M.D. Radiologis
== END | disposition home or self-care (01) ==
LOC: RADMAMWWP 08:39
PROVIDERS: ATTEND Internal Medicine
DX: Z12.31 Encounter for screening mammogram for malignant neoplasm of breast (principal); Z78.0 Asymptomatic menopausal state
CPT/HCPCS: 77063; 77067

== ENCOUNTER → 2023-11-20 | Outpatient (CLI) | payer MEDICARE ==
[2023-11-20 16:24] LABS: Basophils % (A) 1.1 %; Eosinophils % (A) 3.2 %; HCT 42.1 % (37.2-46.3); HGB 12.9 g/dL (12.0-15.0); Lymphocytes # (A) 2.32 X 10*3/uL (0.90-5.00); Lymphocytes % (A) 25.1 %; MCH 29.9 pg (27.0-32.0); MCHC 30.6 g/dL (32.0-37.0); MCV 97.5 FL (80.0-97.0); Mean Platelet Volume 12.4 FL (9.5-12.2); Monocytes # (A) 0.42 X 10*3/uL (0.20-1.00); Monocytes % (A) 4.5 %; NRBC Per 100 WBC 0 X 10*3/uL (0.00-0.01); Neutrophils # (A) 6.07 X 10*3/uL (1.80-7.70); Neutrophils % (A) 65.7 %; Platelet Count 220 X 10*3/uL (140-440); RBC 4.32 X 10*6/uL (4.10-5.20); RDW 12.7 % (11.5-14.5); WBC 9.25 X 10*3/uL (4.50-10.00)
[2023-11-20 16:57] LABS: Erythrocyte Sedimentation Rate 12 mm/Hr (0-30)
== END | disposition home or self-care (01) ==
LOC: LABWHC1 12:22
PROVIDERS: ATTEND Ophthalmology
DX: H20.019 Primary iridocyclitis, unspecified eye (principal)
CPT/HCPCS: 36415; 85025; 85652; 86140

== ENCOUNTER → 2023-12-05 | Outpatient (CLI) | payer MEDICARE ==
--- NOTE | 2023-12-06 17:39 | MR ---
EXAMINATION TYPE: MR brain/orbits wo/w con DATE OF EXAM: 12/05/2023 COMPARISON: Prior MRI brain and orbits September 16, 2022 HISTORY: Sudden loss of vision left eye. TECHNIQUE: Multiplanar, multisequence images of the brain and brainstem along with orbits are all performed with out and with IV contrast, utilizing 5.5 mL intravenous Gadavist . FINDINGS: Diffusion weighted images demonstrate no evidence of a recent infarct or other diffusion ab normality. There is mild to moderate ventricular and sulcal prominence redemonstrated. There are mul tifocal and confluent areas of T2 hyperintensity redemonstrated throughout the white matter bilateral ly. Approximately 60 scattered lesions are again seen.. T2*weighted images show no suspicious intrapa renchymal blood product. Midline structures redemonstrate normal morphology. The craniocervical junction remains within isac l limits. Post contrast images demonstrate no abnormal enhancement. The dural venous sinuses remain patent. Dedicated orbital imaging shows the globes to appear intact bilaterally. Rectus muscles are symmetric and within normal limits. No suspicious enhancing intraorbital mass is identified. Suprasellar ciste rn is maintained. The paranasal sinuses are grossly clear. IMPRESSION: 1. There is mild to moderate diffuse cerebral atrophy and moderate to severe nonspecific white matter changes favor product of chronic small vessel ischemic change redemonstrated. No suspicious enhancem ent is seen. Orbital imaging is within normal limits. No significant change from prior MRI.
== END | disposition home or self-care (01) ==
LOC: RADMRIMAIN 21:00
PROVIDERS: ATTEND Ophthalmology
DX: H47.013 Ischemic optic neuropathy, bilateral (principal); I67.82 Cerebral ischemia; G31.9 Degenerative disease of nervous system, unspecified
CPT/HCPCS: 70543; 70553; A9585

== ENCOUNTER → 2024-03-05 | Outpatient (CLI) | payer MEDICARE ==
[2024-03-05 15:05] LABS: Basophils % (A) 0.8 %; Eosinophils # (A) 0.35 X 10*3/uL (0.04-0.35); Eosinophils % (A) 2.9 %; HCT 43.3 % (37.2-46.3); HGB 13.4 g/dL (12.0-15.0); Lymphocytes # (A) 1.67 X 10*3/uL (0.90-5.00); Lymphocytes % (A) 13.9 %; MCH 30.4 pg (27.0-32.0); MCHC 30.9 g/dL (32.0-37.0); MCV 98.2 FL (80.0-97.0); Mean Platelet Volume 12.1 FL (9.5-12.2); Monocytes # (A) 0.77 X 10*3/uL (0.20-1.00); Monocytes % (A) 6.4 %; NRBC Per 100 WBC 0 X 10*3/uL (0.00-0.01); Neutrophils # (A) 9.11 X 10*3/uL (1.80-7.70); Neutrophils % (A) 75.8 %; Platelet Count 231 X 10*3/uL (140-440); RBC 4.41 X 10*6/uL (4.10-5.20); RDW 13.4 % (11.5-14.5); WBC 12.03 X 10*3/uL (4.50-10.00)
[2024-03-05 15:42] LABS: ALT 11 U/L (8-44); AST 22 U/L (13-35); Albumin 4.3 g/dL (3.8-4.9); Albumin/Globulin Ratio 2.15 Ratio (1.60-3.17); Alkaline Phosphatase 88 U/L (41-126); Blood Urea Nitrogen 9.3 mg/dL (9.0-27.0); Calcium 9.3 mg/dL (8.7-10.3); Carbon Dioxide 24.7 mmol/L (21.6-31.8); Chloride 106 mmol/L (96-109); Chol/HDL Ratio 2.93 Ratio; Glucose 95 mg/dL (70-110); LDL Cholesterol,Calculated 113.5 mg/dL (0.0-131.0); Rheumatoid Factor, Qnt <15 IU/mL (0-15); Sodium 145 mmol/L (135-145); Total Bilirubin 0.6 mg/dL (0.3-1.2); Total Protein 6.3 g/dL (6.2-8.2)
[2024-03-05 16:06] LABS: Erythrocyte Sedimentation Rate 9 mm/Hr (0-30)
[2024-03-05 17:32] LABS: DNA Double-Stranded Negative (Negative)
[2024-03-05 22:51] LABS: Cyclic Citrull Pep IgG Unit <1.5 U/mL (<=3.9); Cyclic Citrullinated Pep IgG Negative
[2024-03-06 14:41] LABS: C-ANCA <1:20 Titer (<1:20)
[2024-03-07 11:28] LABS: ANA Pattern Homogenous
== END | disposition home or self-care (01) ==
LOC: LABWHC1 08:11
PROVIDERS: ATTEND Internal Medicine
DX: Z00.00 Encounter for general adult medical examination without abnormal findings (principal); M85.80 Other specified disorders of bone density and structure, unspecified site; H54.62 Unqualified visual loss, left eye, normal vision right eye
CPT/HCPCS: 36415; 80053; 80061; 82306; 83516; 84443; 85025; 85652; 86038; 86039; 86140; 86200; 86225; 86235; 86255; 86431

== ENCOUNTER → 2024-03-05 | Outpatient (CLI) | payer MEDICARE ==
--- NOTE | 2024-03-05 10:08 | CTL ---
EXAMINATION TYPE: CT Low Dose Lung DATE OF EXAM ORDERED: 03/05/2024 HISTORY: Current smoker, 30 pack-year history. Lung cancer screening CT DLP: 65.[address] CTDI: 2.0 mGy Automated exposure control for dose reduction was used. SCREENING VISIT: First screening visit COMPARISON: CT chest abdomen and pelvis 12/08/2021, CT chest 12/08/2021 TECHNIQUE: Low dose computed tomography scan was performed through the chest at 1 mm thick sections a nd reconstructed images in multiple planes at 1 mm and [address] DIAGNOSTIC QUALITY: Satisfactory FINDINGS: Nodules: Few scattered calcified granulomas within the left lower lobe. New spiculated right lower lobe 1.1 cm solid pulmonary nodule (series 4, image 237). LUNGS: COPD: Severity: None Fibrosis: Severity: None Lymph nodes: None Other findings: Subsegmental atelectasis within the lingula and minimally within the dependent portio n of both lower lobes. RIGHT PLEURAL SPACE: Effusion: None Calcification: None Thickening: None Pneumothorax: None LEFT PLEURAL SPACE: Effusion: None Calcification: None Thickening: None Pneumothorax: None HEART: Heart Size: Mildly Enlarged. Coronary Calcification: None Pericardial Effusion: Similar small pericardial effusion. OTHER FINDINGS: Upper abdomen: Nonobstructive 4 mm left renal calculus. Debris/fluid identified within the distal eso phagus. Similar to prior exam. Bony thorax: None Supraclavicular region: None Other: Mild atherosclerotic calcification of the aorta and its branches. IMPRESSION: 1. New right lower lobe 1.1 cm spiculated pulmonary nodule highly suspicious for primary lung malign doug. 2. Abnormal esophagus with retained debris/fluid within the distal portion again demonstrated. Sugge sting severe dysmotility and/or gastroesophageal reflux. Correlate clinically. 3. Nonobstructive left renal calculus. 4. Similar small pericardial effusion with mild cardiomegaly. CT LUNG RAD AND CT CHEST RECOMMENDATION: Lung-Rad 4B or 4X Very Suspicious: Follow-up Chest CT with o r without contrast or PET/CT and/or tissue sampling. PET/CT may be used when there is a > 8 mm solid component. S Modifier (other clinically significant findings): S
== END | disposition home or self-care (01) ==
LOC: RADCTMAIN 08:58
PROVIDERS: ATTEND Internal Medicine
DX: Z12.2 Encounter for screening for malignant neoplasm of respiratory organs (principal); F17.210 Nicotine dependence, cigarettes, uncomplicated; R91.1 Solitary pulmonary nodule; N20.0 Calculus of kidney; I31.39 Other pericardial effusion (noninflammatory); I51.7 Cardiomegaly
CPT/HCPCS: 71271

== ENCOUNTER → 2024-03-21 | Outpatient (CLI) | payer MEDICARE ==
--- NOTE | 2024-04-18 12:44 | PE ---
Patient: Kandis Woodard Ordering Physician: Unknown, Unknown ID: [id number] Phone, Pager: Phone: N/A Pager: N/A : [phone] Age/Gender: 73Y, F Primary Location: N/A Procedure: PETCT SKULL TO THIGH [facility] Date: 03/21/2024 12:11:18 PM EXAMINATION TYPE: PET CT fusion skull to thigh DATE OF EXAM: 04/03/2024 CLINICAL INDICATION: Solid pulmonary nodule. TECHNIQUE: Following the intravenous administration of 11.03 mCi of F-18 FDG, whole body images are performed from the skull base to the midthigh. Images are reviewed on the computer in the coronal, axial, and sagittal planes. Reconstructed rotating images are created on independent workstation and reviewed on the computer. A non-contrast CT is performed in conjunction with the PET scan. Glucose level 105 mg/dL CT DLP: 322 mGycm, Automated exposure control for dose reduction was used. COMPARISON: CT 03/05/2024, PET/CT None, MRI: None FINDINGS: Mediastinal SUV mean is 1.9 . Hepatic parenchyma SUV mean is 2.4 . SKULL BASE AND NECK: No suspicious radiotracer activity. CHEST, MEDIASTINUM, AND HILAR REGION: Right lower lung nodule near the diaphragm measuring 9 mm Max SUV 2.2. ABDOMEN AND PELVIS: No suspicious radiotracer activity. MUSCULOSKELETAL STRUCTURES: No suspicious radiotracer activity. OTHER CT: Atherosclerosis of the arterial vasculature including coronary arteries. Trace pericardial effusion. Bilateral nonobstructing renal calculi measuring up to 8 mm on the right and 4 mm on the le ft. Moderate to large stool burden throughout the colon. IMPRESSION: Right lower lung 9 mm pulmonary nodule with mild uptake findings could represent granulomatous change versus malignancy continued surveillance recommended.
== END | disposition home or self-care (01) ==
LOC: RADPETMAIN 10:46
PROVIDERS: ATTEND Internal Medicine
DX: R91.1 Solitary pulmonary nodule (principal)
CPT/HCPCS: 78815; A9552

== ENCOUNTER → 2024-05-06 | Outpatient (CLI) | payer MEDICARE ==
--- NOTE | 2024-05-06 09:37 | XR ---
EXAMINATION TYPE: XR chest 2V DATE OF EXAM: 05/06/2024 COMPARISON: 07/21/2022 TECHNIQUE: PA and lateral views submitted. HISTORY: Fever FINDINGS: The lungs are clear and there is no pneumothorax, pleural effusion, or focal pneumonia. It is marked ly enlarged. Atherosclerotic change of the aorta. Subsegmental changes left lung base. No pulmonary e charline. Diffuse osteopenia. Degenerative change of the spine. Atherosclerotic change aorta. Stable scle rotic lesion right humeral head. IMPRESSION: 1. Marked cardiomegaly increased in size from the exam of 2021 correlate for cardiomyopathy or perica rdial effusion. 2. Left basilar atelectasis favored over pneumonia but should be correlated clinically. [facility], , 05/06/2024 9:34 AM
== END | disposition home or self-care (01) ==
LOC: RADXRMAIN 08:35
PROVIDERS: ATTEND Internal Medicine
DX: J18.9 Pneumonia, unspecified organism
CPT/HCPCS: 71046

== ENCOUNTER → 2024-05-12 | Outpatient (CLI) | payer MEDICARE ==
--- NOTE | 2024-05-12 14:53 | XR ---
EXAMINATION TYPE: XR chest 2V DATE OF EXAM: 05/12/2024 COMPARISON: 05/06/2024 HISTORY: Fever and cough for 2 weeks TECHNIQUE: Frontal and lateral views of the chest are obtained. FINDINGS: There is persistent marked cardiomegaly. There is a small left pleural effusion. There is no right pleural effusion. There is no pneumothorax. There is no definite airspace consolidation. IMPRESSION: 1. Stable marked cardiomegaly. 2. Small left pleural effusion. [facility], , 05/12/2024 2:51 PM
== END | disposition home or self-care (01) ==
LOC: RADXRMAIN 14:19
PROVIDERS: ATTEND Internal Medicine
DX: J18.9 Pneumonia, unspecified organism
CPT/HCPCS: 71046

== ENCOUNTER → 2024-05-15 | Outpatient (CLI) | payer MEDICARE ==
[2024-05-15 20:11] LABS: Basophils # (A) 0.08 X 10*3/uL (0.00-0.10); Basophils % (A) 0.8 %; Eosinophils # (A) 0.14 X 10*3/uL (0.04-0.35); Eosinophils % (A) 1.3 %; HCT 37.7 % (37.2-46.3); HGB 11.8 g/dL (12.0-15.0); Lymphocytes # (A) 1.91 X 10*3/uL (0.90-5.00); Lymphocytes % (A) 18.3 %; MCH 29.4 pg (27.0-32.0); MCHC 31.3 g/dL (32.0-37.0); MCV 93.8 FL (80.0-97.0); Mean Platelet Volume 12.9 FL (9.5-12.2); Monocytes # (A) 0.74 X 10*3/uL (0.20-1.00); Monocytes % (A) 7.1 %; NRBC Per 100 WBC 0 X 10*3/uL (0.00-0.01); Neutrophils # (A) 7.51 X 10*3/uL (1.80-7.70); Neutrophils % (A) 71.9 %; Platelet Count 335 X 10*3/uL (140-440); RBC 4.02 X 10*6/uL (4.10-5.20); RDW 13.3 % (11.5-14.5); WBC 10.44 X 10*3/uL (4.50-10.00)
[2024-05-15 23:48] LABS: Alternaria alternata IgE <0.10 kU/L; Aspergillus fumagatus IgE <0.10 kU/L; Birch IgE <0.10 kU/L; Cat Epith & Dander IgE <0.10 kU/L; Cladosporian herbarum IgE <0.10 kU/L; Cockroach IgE <0.10 kU/L; Dermato. farinae IgE <0.10 kU/L; Dog Dander IgE <0.10 kU/L; Elm IgE <0.10 kU/L; Maple (Box Elder) IgE <0.10 kU/L; Oak IgE <0.10 kU/L; Ragweed,Common IgE <0.10 kU/L; Red Top (Bentgrass) IgE <0.10 kU/L
[2024-05-16 13:44] LABS: Alpha 1 Anti-Trypsin 225 mg/dL (90 - 200)
[2024-05-27 16:35] LABS: Alternaria Alternata IgG <13.6 mcg/mL (<13.6); Aspergillus fumigatus IgG NOT DETECTED; Aureobasidium pullulans IgG <13.6 mcg/mL (<13.6); Phoma ssp. IgG <2.0 mcg/mL (<6.6); Saccaharopoly. rectivirgula NOT DETECTED
== END | disposition home or self-care (01) ==
LOC: LABWHC1 14:45
PROVIDERS: ATTEND Internal Medicine Pulmonary Disease
DX: J44.9 Chronic obstructive pulmonary disease, unspecified (principal); J45.50 Severe persistent asthma, uncomplicated; R53.83 Other fatigue
CPT/HCPCS: 36415; 82103; 82104; 82785; 85025; 86001; 86003; 86606; 86609

== ENCOUNTER 2024-05-27 11:26 | Day surgery (SDC) | payer MEDICARE ==
[2024-05-27 11:58] VITALS: TEMP 98.4
[2024-05-27] MEDS: IV FLUID CONTINUATION 1,000 ML IV ONE (12:15)
[2024-05-27] MEDS: SODIUM CHLORIDE 0.9% 500 ML 500 ML IV SCH (12:16)
[2024-05-27 13:33] VITALS: BP 153/84; PULSE 89; RESP 18
== END 2024-05-27 13:55 | disposition home or self-care (01) ==
LOC: OR 11:26
PROVIDERS: ATTEND Internal Medicine
DX: I48.0 Paroxysmal atrial fibrillation (principal)

== ENCOUNTER 2024-06-03 18:52 | Inpatient (IN) | payer MEDICARE ==
--- NOTE | 2024-06-03 19:55 | ED ---
URI HPI - General Chief Complaint: Upper Respiratory Infection Stated Complaint: SOB, Chest pain, cough Time Seen by Provider: 06/03/24 19:08 Source: patient, RN notes reviewed Mode of arrival: ambulatory Limitations: no limitations - History of Present Illness Initial Comments: 74-year-old female presents emergency department chief complaint of fever cough congestion. Patient states she is not felt well over the last month. Patient states that she has had fevers low-grade for over a month. She has been extensively worked up and has seen cardiology which they believe that may be related to her heart. Patient states that she saw Dr. Khalil for this morning and scheduled her for stress test and echocardiogram. Patient was advised to present to the emergency department if symptoms worsened she states her fever worsened which made her symptoms worse. Patient states she has a nonproductive cough states that she is fatigued patient does complain of intermittent chest pain. Patient denies any dysuria no flank pain no abdominal pain. - Related Data Home Medications Medication Instructions Recorded Confirmed Apixaban [Eliquis] 5 mg PO BID 05/22/24 05/27/24 Furosemide [Lasix] 20 mg PO DAILY 05/22/24 05/27/24 Multivit-Min/Iron/Folic/Lutein 1 tab PO DAILY 05/22/24 05/27/24 [Centrum Silver Women Tablet] Omeprazole [PriLOSEC] 20 mg PO AC-BRKFST 05/22/24 05/27/24 Potassium Chloride ER [K-Dur 20] 20 meq PO DAILY PRN 05/22/24 05/27/24 Previous Rx's Medication Instructions Recorded Fluconazole 200 mg PO DAILY #21 tab 05/16/22 HYDROcodone/APAP 5-325MG [Senath 1 tab PO Q6HR PRN #12 tab 06/07/23 5-325] Amiodarone HCl [Pacerone] 200 mg PO DAILY #30 tab 05/27/24 Allergies Allergy/AdvReac Type Severity Reaction Status Date / Time No Known Allergies Allergy Verified 06/03/24 19:04 Review of Systems ROS Statement: Those systems with pertinent positive or pertinent negative responses have been documented in the HPI. ROS Other: All systems not noted in ROS Statement are negative. Past Medical History Past Medical History: Atrial Fibrillation, GERD/Reflux Additional Past Medical History / Comment(s): MigraineS. Food gets stuck when swallowing. hx ABD PAIN. HEMMROIDS, gallstone, optic nerve damage tatiana eyes History of Any Multi-Drug Resistant Organisms: None Reported Past Surgical History: Breast Surgery Additional Past Surgical History / Comment(s): left breast lumpectomy x 2. Past Anesthesia/Blood Transfusion Reactions: No Reported Reaction Past Psychological History: Depression Smoking Status: Current every day smoker, Former smoker Past Alcohol Use History: Rare Past Drug Use History: None Reported - Past Family History Brother(s) Family Medical History: Pulmonary Embolus General Exam Limitations: no limitations General appearance: alert, in no apparent distress Head exam: Present: atraumatic, normocephalic, normal inspection Eye exam: Present: normal appearance, PERRL, EOMI. Absent: scleral icterus, conjunctival injection, periorbital swelling ENT exam: Present: normal exam, normal oropharynx, mucous membranes moist Neck exam: Present: normal inspection, full ROM. Absent: tenderness, meningismus, lymphadenopathy Respiratory exam: Present: normal lung sounds bilaterally. Absent: respiratory distress, wheezes, rales, rhonchi, stridor Cardiovascular Exam: Present: normal rhythm, tachycardia, normal heart sounds. Absent: systolic murmur, diastolic murmur, rubs, gallop, clicks GI/Abdominal exam: Present: soft, normal bowel sounds. Absent: distended, tenderness, guarding, rebound, rigid Course Vital Signs 06/03/24 06/03/24 06/03/24 19:00 20:47 22:57 Temperature 101.6 F H 101.0 F H 99.1 F Pulse Rate 107 H 103 H 96 Respiratory 20 18 18 Rate Blood Pressure 147/82 156/93 118/77 O2 Sat by Pulse 97 98 Oximetry 06/04/24 00:06 Temperature 98.0 F Pulse Rate 89 Respiratory 16 Rate Blood Pressure 126/79 O2 Sat by Pulse 98 Oximetry Medical Decision Making - Medical Decision Making Was pt. sent in by a medical professional or institution (, PA, ROLLER, urgent care, hospital, or [facility]...) When possible be specific @ -Cardiology Did you speak to anyone other than the patient for history (EMS, parent, family, police, friend...)? What history was obtained from this source @ -No Did you review nursing and triage notes (agree or disagree)? Why? @ -I reviewed and agree with nursing and triage notes Were old charts reviewed (outside hosp., previous admission, EMS record, old EKG, old radiological studies, urgent care reports/EKG's, [facility] records)? Report findings @ -Reviewed CT from February lung showing evidence of lung mass Differential Diagnosis (chest pain, altered mental status, abdominal pain women, abdominal pain men, vaginal bleeding, weakness, fever, dyspnea, syncope, headache, dizziness, GI bleed, back pain, seizure, CVA, palpatations, mental health, musculoskeletal)? @ -Differential Chest Pain: Stable Angina, Unstable Angina, STEMI, NSTEMI Aortic Dissection, Pneumothorax, Musculoskeletal, Esophageal Spasm GERD, Cholecystitis, Pancreatitis, Zoster, this is not meant to be an all-inclusive list. EKG interpreted by me (3pts min.). @ -As above X-rays interpreted by me (1pt min.). @ -Chest x-ray shows cardiomegaly, large pleural effusion CT interpreted by me (1pt min.). @ -None done U/S interpreted by me (1pt. min.). @ -None done What testing was considered but not performed or refused? (CT, X-rays, U/S, labs)? Why? @ -None What meds were considered but not given or refused? Why? @ -None Did you discuss the management of the patient with other professionals (prof millan i.eFidencio Wisdom, PA, ROLLER, lab, RT, psych nurse, social services counselor, account manager education, teacher, planned giving officer, case monitor)? Give summary @ -Dr. Griffin for admission with consults Was smoking cessation discussed for >3mins.? @ -No Was critical care preformed (if so, how long)? @ -35 minutes Were there social determinants of health that impacted care today? How? (Homelessness, low income, unemployed, alcoholism, drug addiction, transportation, low edu. Level, literacy, decrease access to med. care, group home, rehab)? @ -No Was there de-escalation of care discussed even if they declined (Discuss DNR or withdrawal of care, Hospice)? DNR status @ -No What co-morbidities impacted this encounter? (DM, HTN, Smoking, COPD, CAD, Cancer, CVA, ARF, Chemo, Hep., AIDS, mental health diagnosis, sleep apnea, morbid obesity)? @ -A-fib Was patient admitted / discharged? Hospital course, mention meds given and route, prescriptions, significant lab abnormalities, going to OR and other pertinent info. @ -Admitted patient presented to emergency department for worsening fever, cough chest pain overall weakness. Patient is found to have significant hypokalemia. Replacement was ordered including oral and IV replacement. Patient does have large pleural effusion with cardiomegaly which has been present I did review CT from February showing evidence of lung mass. Patient will have consults with cardiology, oncology, pulmonology. There is no obvious source for patient's fever patient did have blood cultures drawn, patient was given Rocephin, procalcitonin was added. Patient will be admitted with telemetry. Undiagnosed new problem with uncertain prognosis? @ -Asked Drug Therapy requiring intensive monitoring for toxicity (Heparin, Nitro, Insulin, Cardizem)? @ -No Were any procedures done? @ -No Diagnosis/symptom? @ -Hypokalemia, lung mass, pleural effusion, cardiomegaly, chest pain, fever of unknown origin Acute, or Chronic, or Acute on Chronic? @ -Acute Uncomplicated (without systemic symptoms) or Complicated (systemic symptoms)? @ -Complicated Side effects of treatment? @ -No Exacerbation, Progression, or Severe Exacerbation? @ -No Poses a threat to life or bodily function? How? (Chest pain, USA, SD, pneumonia, PE, COPD, DKA, ARF, appy, cholecystitis, CVA, Diverticulitis, Homicidal, Suicidal, threat to staff... and all critical care pts) @ -Yes possible ACS, cancer - Lab Data Result diagrams: 06/03/24 19:32 06/03/24 23:05 Lab Results 06/03/24 06/03/24 06/03/24 Range/Units 19:32 19:32 19:32 WBC 14.0 H (3.8-10.6) k/uL RBC 3.63 L (3.80-5.40) m/uL Hgb 10.4 L (11.4-16.0) gm/dL Hct 32.2 L (34.0-46.0) % MCV 88.7 (80.0-100.0) fL MCH 28.5 (25.0-35.0) pg MCHC 32.2 (31.0-37.0) g/dL RDW 14.4 (11.5-15.5) % Plt Count 366 (150-450) k/uL MPV 10.2 Neutrophils % 81 % Lymphocytes % 12 % Monocytes % 5 % Eosinophils % 1 % Basophils % 0 % Neutrophils # 11.3 H (1.3-7.7) k/uL Lymphocytes # 1.6 (1.0-4.8) k/uL Monocytes # 0.8 (0-1.0) k/uL Eosinophils # 0.1 (0-0.7) k/uL Basophils # 0.0 (0-0.2) k/uL Hypochromasia Slight PT 11.9 (10.0-12.5) sec INR 1.1 (<1.2) APTT 31.7 H (22.0-30.0) sec Sodium (137-145) mmol/L Potassium (3.5-5.1) mmol/L Chloride (98-107) mmol/L Carbon Dioxide (22-30) mmol/L Anion Gap mmol/L BUN (7-17) mg/dL Creatinine (0.52-1.04) mg/dL Est GFR (CKD-EPI)AfAm (>60 ml/min/1.73 sqM) Est GFR (CKD-EPI)NonAf (>60 ml/min/1.73 sqM) Glucose (74-99) mg/dL Lactic Ac Sepsis Rflx Plasma Lactic Acid Ezekiel (0.7-2.0) mmol/L Calcium (8.4-10.2) mg/dL Magnesium (1.6-2.3) mg/dL Total Bilirubin (0.2-1.3) mg/dL AST (14-36) U/L ALT (4-34) U/L Alkaline Phosphatase (38-126) U/L Troponin I <0.012 (0.000-0.034) ng/mL C-Reactive Protein (<1.0) mg/dL Total Protein (6.3-8.2) g/dL Albumin (3.5-5.0) g/dL Urine Color Urine Appearance (Clear) Urine pH (5.0-8.0) Ur Specific [place] (1.001-1.035) Urine Protein (Negative) Urine Glucose (UA) (Negative) Urine Ketones (Negative) Urine Blood (Negative) Urine Nitrite (Negative) Urine Bilirubin (Negative) Urine Urobilinogen (<2.0) mg/dL Ur Leukocyte Esterase (Negative) Urine RBC (0-5) /hpf Urine WBC (0-5) /hpf Ur Squamous Epith Cells (0-4) /hpf Urine Bacteria (None) /hpf Hyaline Casts (0-2) /lpf Urine Mucus (None) /hpf Heterophile Antibody (Negative) Influenza Type A (PCR) (Not Detectd) Influenza Type B (PCR) (Not Detectd) RSV (PCR) (Not Detectd) SARS-CoV-2 (PCR) (Not Detectd) Group A Strep (PCR) (Not Detectd) 06/03/24 06/03/24 06/03/24 Range/Units 19:37 20:16 21:29 WBC (3.8-10.6) k/uL RBC (3.80-5.40) m/uL Hgb (11.4-16.0) gm/dL Hct (34.0-46.0) % MCV (80.0-100.0) fL MCH (25.0-35.0) pg MCHC (31.0-37.0) g/dL RDW (11.5-15.5) % Plt Count (150-450) k/uL MPV Neutrophils % % Lymphocytes % % Monocytes % % Eosinophils % % Basophils % % Neutrophils # (1.3-7.7) k/uL Lymphocytes # (1.0-4.8) k/uL Monocytes # (0-1.0) k/uL Eosinophils # (0-0.7) k/uL Basophils # (0-0.2) k/uL Hypochromasia PT (10.0-12.5) sec INR (<1.2) APTT (22.0-30.0) sec Sodium (137-145) mmol/L Potassium (3.5-5.1) mmol/L Chloride (98-107) mmol/L Carbon Dioxide (22-30) mmol/L Anion Gap mmol/L BUN (7-17) mg/dL Creatinine (0.52-1.04) mg/dL Est GFR (CKD-EPI)AfAm (>60 ml/min/1.73 sqM) Est GFR (CKD-EPI)NonAf (>60 ml/min/1.73 sqM) Glucose (74-99) mg/dL Lactic Ac Sepsis Rflx Y Plasma Lactic Acid Ezekiel 2.2 H* (0.7-2.0) mmol/L Calcium (8.4-10.2) mg/dL Magnesium (1.6-2.3) mg/dL Total Bilirubin (0.2-1.3) mg/dL AST (14-36) U/L ALT (4-34) U/L Alkaline Phosphatase (38-126) U/L Troponin I (0.000-0.034) ng/mL C-Reactive Protein (<1.0) mg/dL Total Protein (6.3-8.2) g/dL Albumin (3.5-5.0) g/dL Urine Color Urine Appearance (Clear) Urine pH (5.0-8.0) Ur Specific [place] (1.001-1.035) Urine Protein (Negative) Urine Glucose (UA) (Negative) Urine Ketones (Negative) Urine Blood (Negative) Urine Nitrite (Negative) Urine Bilirubin (Negative) Urine Urobilinogen (<2.0) mg/dL Ur Leukocyte Esterase (Negative) Urine RBC (0-5) /hpf Urine WBC (0-5) /hpf Ur Squamous Epith Cells (0-4) /hpf Urine Bacteria (None) /hpf Hyaline Casts (0-2) /lpf Urine Mucus (None) /hpf Heterophile Antibody (Negative) Influenza Type A (PCR) Not Detected (Not Detectd) Influenza Type B (PCR) Not Detected (Not Detectd) RSV (PCR) Not Detected (Not Detectd) SARS-CoV-2 (PCR) Not Detected (Not Detectd) Group A Strep (PCR) (Not Detectd) 06/03/24 06/03/24 06/03/24 Range/Units 21:29 21:29 21:29 WBC (3.8-10.6) k/uL RBC (3.80-5.40) m/uL Hgb (11.4-16.0) gm/dL Hct (34.0-46.0) % MCV (80.0-100.0) fL MCH (25.0-35.0) pg MCHC (31.0-37.0) g/dL RDW (11.5-15.5) % Plt Count (150-450) k/uL MPV Neutrophils % % Lymphocytes % % Monocytes % % Eosinophils % % Basophils % % Neutrophils # (1.3-7.7) k/uL Lymphocytes # (1.0-4.8) k/uL Monocytes # (0-1.0) k/uL Eosinophils # (0-0.7) k/uL Basophils # (0-0.2) k/uL Hypochromasia PT (10.0-12.5) sec INR (<1.2) APTT (22.0-30.0) sec Sodium 135 L (137-145) mmol/L Potassium 2.1 L* (3.5-5.1) mmol/L Chloride 104 (98-107) mmol/L Carbon Dioxide 26 (22-30) mmol/L Anion Gap 5 mmol/L BUN 6 L (7-17) mg/dL Creatinine 0.38 L (0.52-1.04) mg/dL Est GFR (CKD-EPI)AfAm >90 (>60 ml/min/1.73 sqM) Est GFR (CKD-EPI)NonAf >90 (>60 ml/min/1.73 sqM) Glucose 95 (74-99) mg/dL Lactic Ac Sepsis Rflx Plasma Lactic Acid Ezekiel (0.7-2.0) mmol/L Calcium 6.0 L* (8.4-10.2) mg/dL Magnesium 1.4 L (1.6-2.3) mg/dL Total Bilirubin 0.9 (0.2-1.3) mg/dL AST 24 (14-36) U/L ALT 15 (4-34) U/L Alkaline Phosphatase 192 H (38-126) U/L Troponin I (0.000-0.034) ng/mL C-Reactive Protein 17.3 H (<1.0) mg/dL Total Protein 4.3 L (6.3-8.2) g/dL Albumin 2.1 L (3.5-5.0) g/dL Urine Color Urine Appearance (Clear) Urine pH (5.0-8.0) Ur Specific [place] (1.001-1.035) Urine Protein (Negative) Urine Glucose (UA) (Negative) Urine Ketones (Negative) Urine Blood (Negative) Urine Nitrite (Negative) Urine Bilirubin (Negative) Urine Urobilinogen (<2.0) mg/dL Ur Leukocyte Esterase (Negative) Urine RBC (0-5) /hpf Urine WBC (0-5) /hpf Ur Squamous Epith Cells (0-4) /hpf Urine Bacteria (None) /hpf Hyaline Casts (0-2) /lpf Urine Mucus (None) /hpf Heterophile Antibody Negative (Negative) Influenza Type A (PCR) (Not Detectd) Influenza Type B (PCR) (Not Detectd) RSV (PCR) (Not Detectd) SARS-CoV-2 (PCR) (Not Detectd) Group A Strep (PCR) NOT DETECTED (Not Detectd) 06/03/24 06/03/24 06/03/24 Range/Units 23:05 23:05 23:20 WBC (3.8-10.6) k/uL RBC (3.80-5.40) m/uL Hgb (11.4-16.0) gm/dL Hct (34.0-46.0) % MCV (80.0-100.0) fL MCH (25.0-35.0) pg MCHC (31.0-37.0) g/dL RDW (11.5-15.5) % Plt Count (150-450) k/uL MPV Neutrophils % % Lymphocytes % % Monocytes % % Eosinophils % % Basophils % % Neutrophils # (1.3-7.7) k/uL Lymphocytes # (1.0-4.8) k/uL Monocytes # (0-1.0) k/uL Eosinophils # (0-0.7) k/uL Basophils # (0-0.2) k/uL Hypochromasia PT (10.0-12.5) sec INR (<1.2) APTT (22.0-30.0) sec Sodium 132 L (137-145) mmol/L Potassium 2.4 L* (3.5-5.1) mmol/L Chloride 91 L (98-107) mmol/L Carbon Dioxide 35 H (22-30) mmol/L Anion Gap 6 mmol/L BUN 9 (7-17) mg/dL Creatinine 0.53 (0.52-1.04) mg/dL Est GFR (CKD-EPI)AfAm >90 (>60 ml/min/1.73 sqM) Est GFR (CKD-EPI)NonAf >90 (>60 ml/min/1.73 sqM) Glucose 127 H (74-99) mg/dL Lactic Ac Sepsis Rflx Plasma Lactic Acid Ezekiel 1.0 (0.7-2.0) mmol/L Calcium 8.1 L (8.4-10.2) mg/dL Magnesium (1.6-2.3) mg/dL Total Bilirubin 1.3 (0.2-1.3) mg/dL AST 33 (14-36) U/L ALT 21 (4-34) U/L Alkaline Phosphatase 290 H (38-126) U/L Troponin I (0.000-0.034) ng/mL C-Reactive Protein (<1.0) mg/dL Total Protein 5.9 L (6.3-8.2) g/dL Albumin 3.1 L (3.5-5.0) g/dL Urine Color Yellow Urine Appearance Clear (Clear) Urine pH 6.0 (5.0-8.0) Ur Specific [place] 1.014 (1.001-1.035) Urine Protein Trace H (Negative) Urine Glucose (UA) Negative (Negative) Urine Ketones Negative (Negative) Urine Blood Moderate H (Negative) Urine Nitrite Negative (Negative) Urine Bilirubin Negative (Negative) Urine Urobilinogen >12.0 (<2.0) mg/dL Ur Leukocyte Esterase Small H (Negative) Urine RBC 51 H (0-5) /hpf Urine WBC 13 H (0-5) /hpf Ur Squamous Epith Cells 1 (0-4) /hpf Urine Bacteria Occasional H (None) /hpf Hyaline Casts 33 H (0-2) /lpf Urine Mucus Few H (None) /hpf Heterophile Antibody (Negative) Influenza Type A (PCR) (Not Detectd) Influenza Type B (PCR) (Not Detectd) RSV (PCR) (Not Detectd) SARS-CoV-2 (PCR) (Not Detectd) Group A Strep (PCR) (Not Detectd) Critical Care Time Critical Care Time: Yes Total Critical Care Time: 35 Disposition Clinical Impression: Lung mass, Hypokalemia, Cardiomegaly, Pleural effusion, Chest pain, FUO (fever of unknown origin) Disposition: ADMITTED IP TO THIS HOSP Condition: Poor Referrals: Osmin Heller DO [Primary Care Provider] - 1-2 days Time of Disposition: 00:25
[2024-06-03 20:11] LABS: Basophils % (A) 0 %; Eosinophils # (A) 0.1 k/uL (0-0.7); Eosinophils % (A) 1 %; HCT 32.2 % (34.0-46.0); HGB 10.4 gm/dL (11.4-16.0); Hypochromasia Slight; Lymphocytes # (A) 1.6 k/uL (1.0-4.8); Lymphocytes % (A) 12 %; MCH 28.5 pg (25.0-35.0); MCHC 32.2 g/dL (31.0-37.0); MCV 88.7 fL (80.0-100.0); Mean Platelet Volume 10.2; Monocytes # (A) 0.8 k/uL (0-1.0); Monocytes % (A) 5 %; Neutrophils # (A) 11.3 k/uL (1.3-7.7); Neutrophils % (A) 81 %; Platelet Count 366 k/uL (150-450); RBC 3.63 m/uL (3.80-5.40); RDW 14.4 % (11.5-15.5)
[2024-06-03 20:14] LABS: INR 1.1 (<1.2); Partial Thromboplastin Time 31.7 sec (22.0-30.0); Prothrombin Time 11.9 sec (10.0-12.5)
--- NOTE | 2024-06-03 21:02 | XR ---
EXAMINATION TYPE: XR chest 2V DATE OF EXAM: 06/03/2024 8:38 PM CLINICAL INDICATION: Female, 74 years old with history of Chest Pain; [facility] COMPARISON: N 05/12/2024 one TECHNIQUE: XR chest 2V Frontal view of the chest. FINDINGS: Lungs/Pleura: Blunting of the left costophrenic angle. There is no evidence of pleural effusion, foca l consolidation, or pneumothorax. Pulmonary vascularity: Unremarkable. Heart/mediastinum: Cardiomediastinal silhouette is enlarged. Atherosclerotic calcifications are seen in the aorta. Musculoskeletal: No acute osseous pathology. IMPRESSION: Clinically with moderate left pleural effusion and pulmonary vascular congestion. [facility] Nely Porter, , 06/03/2024 8:59 PM
[2024-06-03] MEDS: ACETAMINOPHEN TAB 500 MG TAB PO STA (21:10)
[2024-06-03 22:03] LABS: ALT 15 U/L (4-34); AST 24 U/L (14-36); African American GFR (CKD) >90 (>60 ml/min/1.73 sqM); Albumin 2.1 g/dL (3.5-5.0); Alkaline Phosphatase 192 U/L (38-126); Anion Gap 5 mmol/L; Blood Urea Nitrogen 6 mg/dL (7-17); Carbon Dioxide 26 mmol/L (22-30); Chloride 104 mmol/L (98-107); Glucose 95 mg/dL (74-99); Magnesium 1.4 mg/dL (1.6-2.3); Non-African American GFR(CKD) >90 (>60 ml/min/1.73 sqM); Sodium 135 mmol/L (137-145); Total Bilirubin 0.9 mg/dL (0.2-1.3); Total Protein 4.3 g/dL (6.3-8.2)
[2024-06-03 22:15] LABS: C Reactive Protein 17.3 mg/dL (<1.0); Potassium 2.1 mmol/L (3.5-5.1)
[2024-06-03 23:33] LABS: ALT 21 U/L (4-34); AST 33 U/L (14-36); African American GFR (CKD) >90 (>60 ml/min/1.73 sqM); Albumin 3.1 g/dL (3.5-5.0); Alkaline Phosphatase 290 U/L (38-126); Anion Gap 6 mmol/L; Blood Urea Nitrogen 9 mg/dL (7-17); Calcium 8.1 mg/dL (8.4-10.2); Carbon Dioxide 35 mmol/L (22-30); Chloride 91 mmol/L (98-107); Glucose 127 mg/dL (74-99); Non-African American GFR(CKD) >90 (>60 ml/min/1.73 sqM); Sodium 132 mmol/L (137-145); Total Bilirubin 1.3 mg/dL (0.2-1.3); Total Protein 5.9 g/dL (6.3-8.2)
[2024-06-04 00:05] LABS: Potassium 2.4 mmol/L (3.5-5.1)
[2024-06-04 00:05] LABS: Appearance,Urine Clear (Clear); Bacteria,Urine Occasional /hpf; Bilirubin,Urine Negative (Negative); Blood,Urine Moderate (Negative); Color,Urine Yellow; Glucose,Urine (UA) Negative (Negative); Hyaline Casts,Urine 33 /lpf (0-2); Ketones,Urine Negative (Negative); Leukocyte Esterase,Urine Small (Negative); Mucus,Urine Few /hpf; Nitrite,Urine Negative (Negative); Protein,Urine Trace (Negative); RBC,Urine 51 /hpf (0-5); Specific Gravity,Urine 1.014 (1.001-1.035); Squamous Epithelial Cell,Urine 1 /hpf (0-4); Urobilinogen,Urine >12.0 mg/dL (<2.0); WBC,Urine 13 /hpf (0-5)
[2024-06-04] MEDS ORDERED: Potassium Replacement Protocol 1 EACH MISC MISCELLANE PRN (00:06)
[2024-06-04] MEDS ORDERED: POTASSIUM CHLORIDE 10 MEQ in WATER FOR INJECTION 1 100ML.BAG IVPB STA ×2 (00:07→00:08)
[2024-06-04] MEDS ORDERED: NALOXONE 0.4 MG/ML 1 ML VIAL IV PRN (00:18)
[2024-06-04] MEDS: POTASSIUM CHLORIDE 10 MEQ in SODIUM CHLORIDE 0.9% 100 ML IVPB SCH ×2 (00:23→09:10)
[2024-06-04] MEDS: POTASSIUM CHLORIDE ER 20 MEQ TAB.ER PO ONE (00:25)
[2024-06-04] MEDS ORDERED: RX INFO: IV CONTRAST WAS GIVEN 1 EACH MISC MISCELLANE PRN (02:30)
--- NOTE | 2024-06-04 03:15 | P.CNPUL ---
History of Present Illness Consult date: 06/04/24 Requesting physician: César Penny Chief complaint: Shortness of breath, cough, intermittent fever History of present illness: Patient is a 74-year-old female with past medical history significant for right lower lobe pulmonary nodule, former tobacco dependence, peptic ulcer disease, and atrial fibrillation. Primary care provider is Dr. Osmin Heller. Patient follows with Dr. Rosa, outpatient, in regards to a right lower lobe pulmonary nodule. Does have a significant smoking history, of [id number]-years, recently quit last month when she started feeling ill. Denies history of diagnosed COPD. Recent PET scan done 04/03/2024, report indicating right lower lung 9 mm pulmonary nodule, with intermediate SUV 2.2. No noted mediastinal lymphadenopathy. Nodule has not been biopsied. She also has recently become established with Dr. Khalil. Noted to be in atrial fibrillation at that time. Currently anticoagulated on Eliquis. Reportedly scheduled outpatient to undergo stress test and echocardiogram. Denies increased lower extremity swelling, heart palpitations, lightheadedness, or syncopal events. Presented to the ED late last night. Chief complaint progressive worsening shortness of breath over the last month. This is associated with nonproductive cough, intermittent fevers, and night sweats. Admits some occasional intermittent substernal chest pain, dull, nonradiating, not associated with activity or rest. Admits generalized weakness and fatigue. No known sick contacts or travel. Ches t x-ray done on arrival showing cardiomegaly, mild pulmonary vascular congestion, left-sided pleural effusion, and the patient's known right lower lobe nodule. CBC: WBC count 14, hemoglobin 10.4, hematocrit 32.2, platelets 366. CMP: Sodium 135, potassium 3.1, chloride 104, serum bicarb 26, BUN 6, creatinine 0.38, glucose 95. Calcium 6. Magnesium 1.4. LFTs unremarkable. Troponin less than 0.012. EKG: Sinus tachycardia, rate 105 bpm, generalized low voltage T waves/T wave inversions. Patient states that she was recently placed on Lasix on an outpatient basis. She has been voiding often. Electrolyte imbalances are being replaced. Otherwise, denies any urinary symptoms such as dysuria or burning, flank pain, hematuria. Urinalysis did show small pyuria and bacteriuria. Negative for influenza, RSV, COVID. Febrile, with a Tmax of 101.6 F. Empirically given a dose of Rocephin in the emergency department. Vital signs are stable. She is currently resting comfortably on 2 L/min nasal cannula. SpO2 is 98%. No acute respiratory distress. Review of Systems Constitutional: Reports chills, Reports fever, Reports night sweats Eyes: bilateral decreased vision, denies pain Ears, nose, mouth and throat: Denies dysphagia, Denies headache, Denies nasal congestion, Denies nasal discharge, Denies neck fullness/pressure, Denies neck lump, Denies post-nasal drip, Denies sinus pain, Denies sinus pressure, Denies sore throat Cardiovascular: Reports chest pain, Denies irregular heart beat, Denies leg edema, Denies lightheadedness, Denies palpitations, Denies paroxysmal nocturnal dyspnea, Denies syncope Genitourinary: Reports urinary frequency, Denies dysuria, Denies flank pain, Denies hematuria Musculoskeletal: Denies limitation of motion Integumentary: Denies rash Neurological: Denies change in mentation, Denies headaches, Denies memory loss, Denies seizures, Denies syncope Psychiatric: Denies anxiety, Denies depression Past Medical History Past Medical History: Atrial Fibrillation, GERD/Reflux Additional Past Medical History / Comment(s): MigraineS. Food gets stuck when swallowing. hx ABD PAIN. HEMMROIDS, gallstone, optic nerve damage tatiana eyes History of Any Multi-Drug Resistant Organisms: None Reported Past Surgical History: Breast Surgery Additional Past Surgical History / Comment(s): left breast lumpectomy x 2. Past Anesthesia/Blood Transfusion Reactions: No Reported Reaction Past Psychological History: Depression Smoking Status: Current every day smoker, Former smoker Past Alcohol Use History: Rare Past Drug Use History: None Reported - Past Family History Brother(s) Family Medical History: Pulmonary Embolus Medications and Allergies Home Medications Medication Instructions Recorded Confirmed Type Fluconazole 200 mg PO DAILY #21 tab 05/16/22 05/27/24 Rx HYDROcodone/APAP 5-325MG [[place] 1 tab PO Q6HR PRN #12 tab 06/07/23 05/27/24 Rx 5-325] Apixaban [Eliquis] 5 mg PO BID 05/22/24 05/27/24 History Furosemide [Lasix] 20 mg PO DAILY 05/22/24 05/27/24 History Multivit-Min/Iron/Folic/Lutein 1 tab PO DAILY 05/22/24 05/27/24 History [Centrum Silver Women Tablet] Omeprazole [PriLOSEC] 20 mg PO AC-BRKFST 05/22/24 05/27/24 History Potassium Chloride ER [K-Dur 20] 20 meq PO DAILY PRN 05/22/24 05/27/24 History Amiodarone HCl [Pacerone] 200 mg PO DAILY #30 tab 05/27/24 Rx Allergies Allergy/AdvReac Type Severity Reaction Status Date / Time No Known Allergies Allergy Verified 06/03/24 19:04 Physical Exam Vitals: Vital Signs Temp Pulse Resp BP Pulse Ox 06/04/24 01:04 88 16 119/82 97 06/04/24 00:06 98.0 F 89 16 126/79 98 06/03/24 22:57 99.1 F 96 18 118/77 98 06/03/24 20:47 101.0 F H 103 H 18 156/93 06/03/24 19:00 101.6 F H 107 H 20 147/82 97 Intake and Output 06/03/24 06/03/24 06/04/24 14:59 22:59 06:59 Other: Weight 58.967 kg GENERAL EXAM: Alert, 74-year-old white female, comfortable in no apparent distress. HEAD: Normocephalic and atraumatic EYES: Normal reaction of pupils, equal size. NOSE: Clear with pink turbinates. THROAT: No erythema or exudates. NECK: No masses, no JVD. CHEST: No chest wall deformity. LUNGS: Equal air entry with diminished left lower lung sounds. No crackles, wheeze, rhonchi. On 2 L/min nasal cannula. SpO2 98%. No conversational dyspnea or accessory muscle use. CVS: S1 and S2 normal with no audible murmur, regular rhythm. No extra heart sounds ABDOMEN: No hepatosplenomegaly, active bowel sounds, no guarding or rigidity. SPINE: No scoliosis or deformity SKIN: No rashes CENTRAL NERVOUS SYSTEM: No focal deficits, tone is normal in all 4 extremities. EXTREMITIES: There is no peripheral edema, clubbing, or cyanosis. Peripheral pulses are intact. Results - Laboratory Findings CBC and BMP: 06/03/24 19:32 06/03/24 23:05 PT/INR, D-dimer PT 11.9 sec (10.0-12.5) 06/03/24 19:32 INR 1.1 (<1.2) 06/03/24 19:32 Abnormal lab findings: Abnormal Labs 06/03/24 06/03/24 06/03/24 19:32 19:32 19:37 WBC 14.0 H RBC 3.63 L Hgb 10.4 L Hct 32.2 L Neutrophils # 11.3 H APTT 31.7 H Sodium Potassium Chloride Carbon Dioxide BUN Creatinine Glucose Plasma Lactic Acid Ezekiel 2.2 H* Calcium Magnesium Alkaline Phosphatase C-Reactive Protein Total Protein Albumin Urine Protein Urine Blood Ur Leukocyte Esterase Urine RBC Urine WBC Urine Bacteria Hyaline Casts Urine Mucus 06/03/24 06/03/24 06/03/24 21:29 23:05 23:20 WBC RBC Hgb Hct Neutrophils # APTT Sodium 135 L 132 L Potassium 2.1 L* 2.4 L* Chloride 91 L Carbon Dioxide 35 H BUN 6 L Creatinine 0.38 L Glucose 127 H Plasma Lactic Acid Ezekiel Calcium 6.0 L* 8.1 L Magnesium 1.4 L Alkaline Phosphatase 192 H 290 H C-Reactive Protein 17.3 H Total Protein 4.3 L 5.9 L Albumin 2.1 L 3.1 L Urine Protein Trace H Urine Blood Moderate H Ur Leukocyte Esterase Small H Urine RBC 51 H Urine WBC 13 H Urine Bacteria Occasional H Hyaline Casts 33 H Urine Mucus Few H - Diagnostic Findings Chest x-ray: image reviewed Assessment and Plan Assessment: Acute hypoxemic respiratory failure; chest x-ray showing cardiomegaly, mild pulmonary vascular congestion, and moderate size left pleural effusion; possible CHF exacerbation, unknown type New left pleural effusion Right lower lobe pulmonary nodule, follows with a different [facility] on an outpatient basis, Dr. Rosa Acute febrile illness Acute leukocytosis History of atrial fibrillation, anticoagulated on Eliquis, currently in normal sinus rhythm. Reportedly relatively new finding, following with cardiology Multiple electrolyte abnormalities including severe hypokalemia, hypomagnesemia, hypocalcemia; being replaced per protocol. On loop diuretics outpatient Normocytic normochromic anemia, no overt signs of blood loss Possible UTI History of peptic ulcer disease Legally blind Former tobacco dependence, with 20-07-ewkd-year history Plan: Patient's medications, labs, chest x-ray reviewed Continue supplemental oxygen to maintain oxygen saturation of 92% or greater Obtain chest ultrasound with markings Obtain chest CT with contrast Check procalcitonin level Continue empiric antibiotics Cardiology following Thoracic echocardiogram pending for the morning Electrolytes are being replaced per protocol GI prophylaxis: Protonix We will continue to follow while inpatient, and further recommendations to follow. May follow with established [facility] on discharge. I have personally seen and examined the patient, performed the documentation and the assessment and plan as written. Number of minutes spent on the visit:20 Time with Patient: Greater than 30
[2024-06-04] MEDS: MAGNESIUM SULFATE-D5W PMX 1 GM in DEXTROSE/WATER 1 100ML.BAG IVPB SCH ×2 (03:40→09:11)
--- NOTE | 2024-06-04 03:44 | P.HPIM ---
History of Present Illness H&P Date: 06/04/24 Patient is a 74-year-old female with a PMH of A-fib on Eliquis, peptic ulcer disease, GERD, tobacco abuse who presents to the emergency room with complaints of persistent fever and cough. Patient reports that she first noticed a fever at the time of which was associated with a nonproductive cough and reports her symptoms have persisted since then. She has also been experiencing intermittent chest discomfort with shortness of breath and decreased exercise tolerance for which she has seen Dr. Khalil with whom she has stress test and echocardiogram scheduled. The patient notes that she and her experiencing night sweats along with a fever. Reports feeling fatigued over the past several days due to which she has had minimal oral intake as she reports being too tired to eat. Patient had recently undergone a low-dose lung CT which had revealed a 1.1 cm right lower lobe spiculated mass with subsequent PET scan on 04/03/2020, revealed that the right lower lobe lung pulmonary nodule had somewhat decreased to 9 mm with findings concerning for granulomatous change versus malignancy with surveillance recommended. There was no evidence of mediastinal lymphadenopathy. Patient otherwise denied experiencing abdominal pain, diarrhea, urinary complaints, lower extremity swelling, lower extremity pain. She also denied substance use. In the emergency room a chest x-ray revealed findings of moderate left-sided pleural effusion with pulmonary vascular congestion with EKG showing sinus tach cardia at 105 bpm with diffuse T wave flattening as reviewed by me. Laboratory evaluation was remarkable for leukocytosis of 14.0 with hemoglobin 10.4, sodium 137, creatinine 2.1, lactic acid 2.2, calcium 6.9, magnesium 1.4, alk phos 193, CRP 17.3 with albumin 2.1 with UA abnormal and respiratory infectious panel negative. ED documentation reviewed and case discussed with ED provider. Review of systems: Pertinent positives and negatives as discussed in HPI, a complete review of systems was performed and all other systems are negative. Physical examination: Vital signs reviewed General: non toxic, no distress, appears at stated age, normal weight Derm: no unusual rashes/lesions, warm Head: atraumatic, normocephalic, symmetric Eyes: EOMI, no lid lag, anicteric sclera, pupils equal round reactive to light ENT: Nose and ears atraumatic Neck: No cervical lymphadenopathy, trachea midline, supple Mouth: no lip lesion, mucus membranes moist Cardiovascular: S1S2 reg, no murmur, positive dorsalis pedis pulse bilateral, no edema Lungs: Some scattered rhonchi and rales, no accessory muscle use Abdominal: soft, nontender to palpation, no guarding Ext: muscle strength 5 out of 5 in all 4 extremities grossly, no gross muscle atrophy, no contractures, Neuro: CN II-XI grossly intact, no gross focal neuro deficits Psych: Alert, oriented, appropriate affect Assessment: SIRS without obvious infectious etiology Shortness of breath with fluid overload, suspect congestive heart failure Severe hypokalemia, may be due to poor oral intake Hypochloremic hyponatremia Chronic conditions: A-fib, peptic ulcer disease, GERD, lung mass Imaging: In the emergency room a chest x-ray revealed findings of moderate left-sided pleural effusion with pulmonary vascular congestion with EKG showing sinus tach cardia at 105 bpm with diffuse T wave flattening as reviewed by me. Data Review: Laboratory evaluation was remarkable for leukocytosis of 14.0 with hemoglobin 10.4, sodium 137, creatinine 2.1, lactic acid 2.2, calcium 6.9, magnesium 1.4, alk phos 193, CRP 17.3 with albumin 2.1 with UA abnormal and respiratory infectious panel negative. Plan: Follow-up blood cultures Obtain echocardiogram Continue with ceftriaxone for now for possible UTI Infectious disease consulted Oncology consulted for lung mass Follow-up CT chest Follow-up proBNP levels Replace potassium Cardiac monitoring DVT prophylaxis: Eliquis The patient is admitted with an anticipated greater than 2 midnight stay for evaluation of SIRS CODE STATUS: Full Code Discussed with: Patient Anticipated discharge place: Home Past Medical History Past Medical History: Atrial Fibrillation, GERD/Reflux Additional Past Medical History / Comment(s): MigraineS. Food gets stuck when swallowing. hx ABD PAIN. HEMMROIDS, gallstone, optic nerve damage tatiana eyes History of Any Multi-Drug Resistant Organisms: None Reported Past Surgical History: Breast Surgery Additional Past Surgical History / Comment(s): left breast lumpectomy x 2. Past Anesthesia/Blood Transfusion Reactions: No Reported Reaction Past Psychological History: Depression Smoking Status: Current every day smoker, Former smoker Past Alcohol Use History: Rare Past Drug Use History: None Reported - Past Family History Brother(s) Family Medical History: Pulmonary Embolus Medications and Allergies Home Medications Medication Instructions Recorded Confirmed Type Fluconazole 200 mg PO DAILY #21 tab 05/16/22 05/27/24 Rx HYDROcodone/APAP 5-325MG [[place] 1 tab PO Q6HR PRN #12 tab 06/07/23 05/27/24 Rx 5-325] Apixaban [Eliquis] 5 mg PO BID 05/22/24 05/27/24 History Furosemide [Lasix] 20 mg PO DAILY 05/22/24 05/27/24 History Multivit-Min/Iron/Folic/Lutein 1 tab PO DAILY 05/22/24 05/27/24 History [Centrum Silver Women Tablet] Omeprazole [PriLOSEC] 20 mg PO AC-BRKFST 05/22/24 05/27/24 History Potassium Chloride ER [K-Dur 20] 20 meq PO DAILY PRN 05/22/24 05/27/24 History Amiodarone HCl [Pacerone] 200 mg PO DAILY #30 tab 05/27/24 Rx Allergies Allergy/AdvReac Type Severity Reaction Status Date / Time No Known Allergies Allergy Verified 06/03/24 19:04 Physical Exam Vitals: Vital Signs Temp Pulse Resp BP Pulse Ox 06/04/24 01:04 88 16 119/82 97 06/04/24 00:06 98.0 F 89 16 126/79 98 06/03/24 22:57 99.1 F 96 18 118/77 98 06/03/24 20:47 101.0 F H 103 H 18 156/93 06/03/24 19:00 101.6 F H 107 H 20 147/82 97 Intake and Output 06/03/24 06/03/24 06/04/24 14:59 22:59 06:59 Other: Weight 58.967 kg Results CBC & Chem 7: 06/03/24 19:32 06/03/24 23:05 Labs: Abnormal Lab Results - Last 24 Hours (Table) 06/03/24 06/03/24 06/03/24 Range/Units 19:32 19:32 19:37 WBC 14.0 H (3.8-10.6) k/uL RBC 3.63 L (3.80-5.40) m/uL Hgb 10.4 L (11.4-16.0) gm/dL Hct 32.2 L (34.0-46.0) % Neutrophils # 11.3 H (1.3-7.7) k/uL APTT 31.7 H (22.0-30.0) sec Sodium (137-145) mmol/L Potassium (3.5-5.1) mmol/L Chloride (98-107) mmol/L Carbon Dioxide (22-30) mmol/L BUN (7-17) mg/dL Creatinine (0.52-1.04) mg/dL Glucose (74-99) mg/dL Plasma Lactic Acid Ezekiel 2.2 H* (0.7-2.0) mmol/L Calcium (8.4-10.2) mg/dL Magnesium (1.6-2.3) mg/dL Alkaline Phosphatase (38-126) U/L C-Reactive Protein (<1.0) mg/dL Total Protein (6.3-8.2) g/dL Albumin (3.5-5.0) g/dL Urine Protein (Negative) Urine Blood (Negative) Ur Leukocyte Esterase (Negative) Urine RBC (0-5) /hpf Urine WBC (0-5) /hpf Urine Bacteria (None) /hpf Hyaline Casts (0-2) /lpf Urine Mucus (None) /hpf 06/03/24 06/03/24 06/03/24 Range/Units 21:29 23:05 23:20 WBC (3.8-10.6) k/uL RBC (3.80-5.40) m/uL Hgb (11.4-16.0) gm/dL Hct (34.0-46.0) % Neutrophils # (1.3-7.7) k/uL APTT (22.0-30.0) sec Sodium 135 L 132 L (137-145) mmol/L Potassium 2.1 L* 2.4 L* (3.5-5.1) mmol/L Chloride 91 L (98-107) mmol/L Carbon Dioxide 35 H (22-30) mmol/L BUN 6 L (7-17) mg/dL Creatinine 0.38 L (0.52-1.04) mg/dL Glucose 127 H (74-99) mg/dL Plasma Lactic Acid Ezekile (0.7-2.0) mmol/L Calcium 6.0 L* 8.1 L (8.4-10.2) mg/dL Magnesium 1.4 L (1.6-2.3) mg/dL Alkaline Phosphatase 192 H 290 H (38-126) U/L C-Reactive Protein 17.3 H (<1.0) mg/dL Total Protein 4.3 L 5.9 L (6.3-8.2) g/dL Albumin 2.1 L 3.1 L (3.5-5.0) g/dL Urine Protein Trace H (Negative) Urine Blood Moderate H (Negative) Ur Leukocyte Esterase Small H (Negative) Urine RBC 51 H (0-5) /hpf Urine WBC 13 H (0-5) /hpf Urine Bacteria Occasional H (None) /hpf Hyaline Casts 33 H (0-2) /lpf Urine Mucus Few H (None) /hpf
--- NOTE | 2024-06-04 05:15 | CT ---
EXAM: CT Chest With Intravenous Contrast CLINICAL HISTORY: ITS.REASON CT Reason: lung nodule, new left pleural effusion, febrile TECHNIQUE: Axial computed tomography images of the chest with intravenous contrast. CTDI is 11.2 mGy and DLP is 496.8 mGy-cm. This CT exam was performed using one or more of the following dose reduction techniques: automated exposure control, adjustment of the mA and/or kV according to patient size, and/or use of iterative reconstruction technique. MIP reconstructed images were created and reviewed. COMPARISON: CT chest without contrast dated june 04 2024 FINDINGS: Lungs: Mild right lower lobe airspace disease. Right lower lobe pulmonary nodule measuring 14 x 12 mm as seen on series 201, image 58. No consolidation. Pleural space: Large left pleural effusion. No evidence of pleural enhancement. This may be related to a simple pleural effusion. Left lower lobe collapse which is likely due to compressive changes from the left pleural effusion and pericardial effusion. No pneumothorax. Heart: Pericardial effusion measuring up to 3.3 cm in thickness. This may be a slow-growing chronic pericardial effusion Consider cardiology consultation. Cardiomegaly. No significant coronary artery calcifications. Mediastinum: Esophageal dilatation with debris. Bones/joints: Degenerative changes in the spine. 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 No acute fracture. No dislocation. Soft tissues: Unremarkable. Vasculature: Unremarkable. No thoracic aortic aneurysm. Lymph nodes: Unremarkable. No enlarged lymph nodes. IMPRESSION: 1. Pericardial effusion measuring up to 3.3 cm in thickness. This may be a slow-growing chronic pericardial effusion Consider cardiology consultation. 2. Large left pleural effusion. No evidence of pleural enhancement. This may be related to a simple pleural effusion. 3. Left lower lobe collapse which is likely due to compressive changes from the left pleural effusion and pericardial effusion. 4. Esophageal dilatation with debris. 5. Right lower lobe pulmonary nodule measuring 14 x 12 mm as seen on series 201, image 58. Fleischner Society Guidelines suggest one should consider a follow-up chest CT at 3 months for low-risk or high-risk patients. Alternatively (or additionally) PET/CT or tissue sampling could be performed. 6. No other acute findings. 7. Incidental findings as described.
[2024-06-04 06:56] LABS: HCT 32.6 % (34.0-46.0); HGB 10.4 gm/dL (11.4-16.0); Hypochromasia Slight; MCH 27.9 pg (25.0-35.0); MCHC 31.8 g/dL (31.0-37.0); MCV 87.8 fL (80.0-100.0); Mean Platelet Volume 8.4; Platelet Count 421 k/uL (150-450); RBC 3.71 m/uL (3.80-5.40); RDW 14.3 % (11.5-15.5); WBC 12.6 k/uL (3.8-10.6)
[2024-06-04 07:05] LABS: African American GFR (CKD) >90 (>60 ml/min/1.73 sqM); Anion Gap 9 mmol/L; Blood Urea Nitrogen 7 mg/dL (7-17); Calcium 8.3 mg/dL (8.4-10.2); Carbon Dioxide 34 mmol/L (22-30); Chloride 92 mmol/L (98-107); Glucose 108 mg/dL (74-99); Non-African American GFR(CKD) >90 (>60 ml/min/1.73 sqM); Potassium 3.1 mmol/L (3.5-5.1); Sodium 135 mmol/L (137-145)
--- NOTE | 2024-06-04 08:12 | US ---
EXAMINATION TYPE: US chest DATE OF EXAM: 06/04/2024 COMPARISON: NONE CLINICAL INDICATION: Female, 74 years old with history of left pleural effusion; left effusion TECHNIQUE: Grayscale imaging of the chest. Targeted ultrasound of the posterior lower left hemithora x FINDINGS: EXAM MEASUREMENTS: Left Pleural Effusion pocket size: 7.6 cm Left skin surface to fluid distance: 1.8 cm Left side marked for possible thoracentesis outside the dept. Pulmonologists are able to review the images in the patient?s EMR. IMPRESSIONS: As above [facility], , 06/04/2024 8:10 AM
[2024-06-04] MEDS: AMIODARONE 200 MG TAB PO SCH (08:37)
[2024-06-04] MEDS: PANTOPRAZOLE 40 MG TABLET PO SCH (08:44)
[2024-06-04] MEDS: COLCHICINE 0.6 MG EACH PO SCH (08:45)
[2024-06-04] MEDS ORDERED: APIXABAN 5 MG TAB PO SCH (09:00)
[2024-06-04] MEDS: AMIODARONE 100 MG TAB PO SCH (09:04)
--- NOTE | 2024-06-04 10:06 | P.GSCN ---
History of Present Illness Consult date: 06/04/24 Reason for Consult: Large pericardial effusion discovered on CAT scan Requesting physician: Kamala Sorto History of present illness: This is a 74-year-old female who follows outpatient with Dr. Heller for primary care, Dr. Khalil for cardiology, and Dr. FADIA Murcia for pulmonology. She has a previous medical history of recent diagnosis of atrial fibrillation on Eliqu outpatient for anticoagulation although states she is only taking it once a day, COVID in 2022, GERD, previous tobacco dependence with recent cessation. Apparently for the last month or so she has been getting progressively more short of breath. In addition she endorses cough, intermittent fevers, night sweats, and occasional chest pain. States that she quit smoking when she began to feel ill last month. She was scheduled for echocardiogram and stress test yesterday, however due to her shortness of breath she was requested to report to the emergency room for evaluation and treatment. In the emergency room lab work revealed WBC 14, hemoglobin 10.4, INR 1.1, potassium 2.1, lactic acid 2.2, calcium 6.0, CRP 17.3, BNP 631, and Cepheid 4 Plex negative for virus. EKG demonstrated sinus tach with heart rate in the low 100s. She was febrile with temperature 101.6 F. Chest x-ray revealed moderate left-sided pleural effusion and pulmonary vascular congestion. She was admitted for evaluation and treatment with consultation placed to cardiology, pulmonology, oncology and infectious disease. CT of the chest was completed this morning demonstrating large pericardial effusion, large left pleural effusion, left lower lobe collapse, right lower lobe pulmonary nodule measuring 14 x 12 mm. Of note the patient has been following with Dr. FADIA Murcia regarding right lower lobe nodule. She underwent a low-dose screening CT in February which noted a spiculated right lower lobe nodule measuring 1.1 cm. She had a follow- up PET scan in March demonstrating the nodule had decreased in size to 9 mm with SUV 2.2 and no mediastinal adenopathy. No biopsy has been completed at this point. The patient was started on IV antibiotics, her potassium was replaced. She was also started on colchicine by cardiology. Blood and urine cultures were ordered. Ultrasound the chest was completed demonstrating left sided fluid pocket 7.6 cm. Interventional radiology was consulted by pulmonology for left-sided thoracentesis. Consultation was placed to cardiothoracic surgery for pericardial window with fluid to be sent for analysis. Review of Systems Review of systems was completed and was negative except as noted - Constitutional Reports fever, Reports night sweats - Cardiovascular Reports chest pain, Reports shortness of breath Past Medical History Past Medical History: Atrial Fibrillation, GERD/Reflux, Pneumonia Additional Past Medical History / Comment(s): MigraineS. Food gets stuck when swallowing. hx ABD PAIN. HEMMROIDS, gallstone, optic nerve damage tatiana eyes; COVID in 2022 History of Any Multi-Drug Resistant Organisms: None Reported Past Surgical History: Breast Surgery Additional Past Surgical History / Comment(s): left breast lumpectomy x 2. Past Anesthesia/Blood Transfusion Reactions: No Reported Reaction Past Psychological History: Depression Smoking Status: Former smoker Past Alcohol Use History: Rare Past Drug Use History: None Reported Additional History: Quit smoking in April 2024 when she started to get ill - Past Family History Brother(s) Family Medical History: Pulmonary Embolus Mother Additional Family Medical History / Comment(s): from Alzheimer's Father Additional Family Medical History / Comment(s): from unknown cause, possibly his heart Medications and Allergies Home Medications Medication Instructions Recorded Confirmed Type Apixaban [Eliquis] 5 mg PO BID 05/22/24 06/04/24 History Furosemide [Lasix] 20 mg PO DAILY 05/22/24 06/04/24 History Multivit-Min/Iron/Folic/Lutein 1 tab PO DAILY 05/22/24 06/04/24 History [Centrum Silver Women Tablet] Omeprazole [PriLOSEC] 20 mg PO AC-BRKFST 05/22/24 06/04/24 History Amiodarone HCl [Pacerone] 200 mg PO DAILY #30 tab 05/27/24 06/04/24 Rx Acetaminophen Tab [Tylenol] 650 - 975 mg PO Q6H PRN 06/04/24 06/04/24 History Albuterol Sulfate [Albuterol 2 puff PO RT-QID PRN 06/04/24 06/04/24 History Sulfate Hfa] Allergies Allergy/AdvReac Type Severity Reaction Status Date / Time No Known Allergies Allergy Verified 06/04/24 06:59 Surgical - Exam Vital Signs Temp Pulse Resp BP Pulse Ox 101.6 F H 107 H 20 147/82 97 06/03/24 19:00 06/03/24 19:00 06/03/24 19:00 06/03/24 19:00 06/03/24 19:00 CONSTITUTIONAL: Awake and alert, appears comfortable, cooperative, well- developed, well-nourished, no pain, no acute distress EYES: Pupils equal, round, reactive to light, normal ocular movement ENT: Moist mucous membranes without oral lesions present NECK: No masses, no bruits, trachea midline RESPIRATORY: Lungs sounds diminished bilaterally, left greater than right, coarse in the bases. Respirations even, nonlabored. Currently on 2 L nasal cannula with oxygen saturation 94%. Strong cough. No chest wall deformities. No clubbing or cyanosis present CARDIOVASCULAR: S1, S2 present. Regular rate and rhythm, sinus tach on telemetry. Palpable peripheral pulses bilaterally. No edema present. No calf pain or tenderness noted. GASTROINTESTINAL: Abdomen soft, nontender, nondistended without masses or organomegaly noted. There is no rebound or guarding present. Active bowel sounds present 4 quadrants. GENITOURINARY: Deferred INTEGUMENTARY: Skin is warm and dry NEUROLOGIC: Cranial nerves II through XII intact, normal coordination, no obvious motor or sensory deficits, speech is normal MUSKULOSKELETAL: Able to move all extremities, strength equal bilaterally, normal posture PSYCHIATRIC: Alert and oriented to person place and time, appropriate affect, intact judgment and insight Results - Labs 06/04/24 06:22 06/04/24 06:22 Abnormal Lab Results - Last 24 Hours (Table) 06/03/24 06/03/24 06/03/24 Range/Units 19:32 19:32 19:37 WBC 14.0 H (3.8-10.6) k/uL RBC 3.63 L (3.80-5.40) m/uL Hgb 10.4 L (11.4-16.0) gm/dL Hct 32.2 L (34.0-46.0) % Neutrophils # 11.3 H (1.3-7.7) k/uL APTT 31.7 H (22.0-30.0) sec Sodium (137-145) mmol/L Potassium (3.5-5.1) mmol/L Chloride (98-107) mmol/L Carbon Dioxide (22-30) mmol/L BUN (7-17) mg/dL Creatinine (0.52-1.04) mg/dL Glucose (74-99) mg/dL Plasma Lactic Acid Ezekiel 2.2 H* (0.7-2.0) mmol/L Calcium (8.4-10.2) mg/dL Magnesium (1.6-2.3) mg/dL Alkaline Phosphatase (38-126) U/L C-Reactive Protein (<1.0) mg/dL Total Protein (6.3-8.2) g/dL Albumin (3.5-5.0) g/dL Urine Protein (Negative) Urine Blood (Negative) Ur Leukocyte Esterase (Negative) Urine RBC (0-5) /hpf Urine WBC (0-5) /hpf Urine Bacteria (None) /hpf Hyaline Casts (0-2) /lpf Urine Mucus (None) /hpf 06/03/24 06/03/24 06/03/24 Range/Units 21:29 23:05 23:20 WBC (3.8-10.6) k/uL RBC (3.80-5.40) m/uL Hgb (11.4-16.0) gm/dL Hct (34.0-46.0) % Neutrophils # (1.3-7.7) k/uL APTT (22.0-30.0) sec Sodium 135 L 132 L (137-145) mmol/L Potassium 2.1 L* 2.4 L* (3.5-5.1) mmol/L Chloride 91 L (98-107) mmol/L Carbon Dioxide 35 H (22-30) mmol/L BUN 6 L (7-17) mg/dL Creatinine 0.38 L (0.52-1.04) mg/dL Glucose 127 H (74-99) mg/dL Plasma Lactic Acid Ezekiel (0.7-2.0) mmol/L Calcium 6.0 L* 8.1 L (8.4-10.2) mg/dL Magnesium 1.4 L (1.6-2.3) mg/dL Alkaline Phosphatase 192 H 290 H (38-126) U/L C-Reactive Protein 17.3 H (<1.0) mg/dL Total Protein 4.3 L 5.9 L (6.3-8.2) g/dL Albumin 2.1 L 3.1 L (3.5-5.0) g/dL Urine Protein Trace H (Negative) Urine Blood Moderate H (Negative) Ur Leukocyte Esterase Small H (Negative) Urine RBC 51 H (0-5) /hpf Urine WBC 13 H (0-5) /hpf Urine Bacteria Occasional H (None) /hpf Hyaline Casts 33 H (0-2) /lpf Urine Mucus Few H (None) /hpf 06/04/24 06/04/24 Range/Units 06:22 06:22 WBC 12.6 H (3.8-10.6) k/uL RBC 3.71 L (3.80-5.40) m/uL Hgb 10.4 L (11.4-16.0) gm/dL Hct 32.6 L (34.0-46.0) % Neutrophils # (1.3-7.7) k/uL APTT (22.0-30.0) sec Sodium 135 L (137-145) mmol/L Potassium 3.1 L (3.5-5.1) mmol/L Chloride 92 L (98-107) mmol/L Carbon Dioxide 34 H (22-30) mmol/L BUN (7-17) mg/dL Creatinine 0.46 L (0.52-1.04) mg/dL Glucose 108 H (74-99) mg/dL Plasma Lactic Acid Ezekiel (0.7-2.0) mmol/L Calcium 8.3 L (8.4-10.2) mg/dL Magnesium (1.6-2.3) mg/dL Alkaline Phosphatase (38-126) U/L C-Reactive Protein (<1.0) mg/dL Total Protein (6.3-8.2) g/dL Albumin (3.5-5.0) g/dL Urine Protein (Negative) Urine Blood (Negative) Ur Leukocyte Esterase (Negative) Urine RBC (0-5) /hpf Urine WBC (0-5) /hpf Urine Bacteria (None) /hpf Hyaline Casts (0-2) /lpf Urine Mucus (None) /hpf Diabetes panel 06/03/24 06/03/24 06/04/24 Range/Units 21:29 23:05 06:22 Sodium 135 L 132 L 135 L (137-145) mmol/L Potassium 2.1 L* 2.4 L* 3.1 L (3.5-5.1) mmol/L Chloride 104 91 L 92 L (98-107) mmol/L Carbon Dioxide 26 35 H 34 H (22-30) mmol/L BUN 6 L 9 7 (7-17) mg/dL Creatinine 0.38 L 0.53 0.46 L (0.52-1.04) mg/dL Glucose 95 127 H 108 H (74-99) mg/dL Calcium 6.0 L* 8.1 L 8.3 L (8.4-10.2) mg/dL AST 24 33 (14-36) U/L ALT 15 21 (4-34) U/L Alkaline Phosphatase 192 H 290 H (38-126) U/L Total Protein 4.3 L 5.9 L (6.3-8.2) g/dL Albumin 2.1 L 3.1 L (3.5-5.0) g/dL Calcium panel 06/03/24 06/03/24 06/04/24 Range/Units 21:29 23:05 06:22 Calcium 6.0 L* 8.1 L 8.3 L (8.4-10.2) mg/dL Albumin 2.1 L 3.1 L (3.5-5.0) g/dL Pituitary panel 06/03/24 06/03/24 06/04/24 Range/Units 21:29 23:05 06:22 Sodium 135 L 132 L 135 L (137-145) mmol/L Potassium 2.1 L* 2.4 L* 3.1 L (3.5-5.1) mmol/L Chloride 104 91 L 92 L (98-107) mmol/L Carbon Dioxide 26 35 H 34 H (22-30) mmol/L BUN 6 L 9 7 (7-17) mg/dL Creatinine 0.38 L 0.53 0.46 L (0.52-1.04) mg/dL Glucose 95 127 H 108 H (74-99) mg/dL Calcium 6.0 L* 8.1 L 8.3 L (8.4-10.2) mg/dL Adrenal panel 06/03/24 06/03/24 06/04/24 Range/Units 21:29 23:05 06:22 Sodium 135 L 132 L 135 L (137-145) mmol/L Potassium 2.1 L* 2.4 L* 3.1 L (3.5-5.1) mmol/L Chloride 104 91 L 92 L (98-107) mmol/L Carbon Dioxide 26 35 H 34 H (22-30) mmol/L BUN 6 L 9 7 (7-17) mg/dL Creatinine 0.38 L 0.53 0.46 L (0.52-1.04) mg/dL Glucose 95 127 H 108 H (74-99) mg/dL Calcium 6.0 L* 8.1 L 8.3 L (8.4-10.2) mg/dL Total Bilirubin 0.9 1.3 (0.2-1.3) mg/dL AST 24 33 (14-36) U/L ALT 15 21 (4-34) U/L Alkaline Phosphatase 192 H 290 H (38-126) U/L Total Protein 4.3 L 5.9 L (6.3-8.2) g/dL Albumin 2.1 L 3.1 L (3.5-5.0) g/dL - Imaging Chest x-ray: report reviewed, image reviewed CT scan - chest: report reviewed, image reviewed EKG: image reviewed Assessment and Plan Assessment: Large pericardial effusion on CT scan Left pleural effusion Acute hypoxic respiratory failure Shortness of breath secondary to above Febrile illness with leukocytosis, lactic acid Hypokalemia Hypomagnesemia Right lower lobe pulmonary nodule, being followed by FADIA Murcia History of recent diagnosis of atrial fibrillation on [facility] outpatient for anticoagulation last dose 06/02 or 06/03 (patient states she does not think she took her dose yesterday) COVID in 2022 GERD Previous tobacco dependence with recent cessation Plan: The patient was seen and examined in the emergency room sitting up in a cart in no acute distress. States she is she does not feel quite as bad as when she came in. Still requiring oxygen. Currently afebrile. Transthoracic echocardiogram was just completed, will review. The case was discussed in detail with Dr. Novoa. Will make determination regarding pericardial drainage once seen by surgeon. Patient would ultimately need to be off of her anticoagulation for a couple of days. In the meantime continue to maximize medical therapy, antibiotics per infectious disease. Thoracentesis by interventional radiology. Incentive spirometry ordered and should be encouraged. Replace electrolytes. Increase activity as tolerated. More rec ommendations to follow. Thank you for this consult we will continue to follow along and make further recommendations as appropriate. I have personally seen and examined the patient, performed the documentation and the assessment and plan as written. Number of minutes spent on the visit: 30. Sunita Avina NP-Millie The patient was seen and examined with the [employer]UC[employer] RESOURCE TEACHER and I agree with her assessment and plan as documented. Number of minutes spent on visit: 35. Ayan Novoa MD
--- NOTE | 2024-06-04 10:11 | CA ---
Transthoracic Echo Report Name: Kandis Woodard Age: 74 Gender: F : 1950 Exam Date: 06/04/2024 08:51 Exam Location: [place] [facility] Ht (in): 62 Wt (lb): 130 Ordering Physician: César Penny Attending/Referring Phys: [id number], Zohaib Supervisor [employer] Georgia Menezes, CHYNA Procedure CPT: Indications: Cardiomegaly, pleural effusion, chest pain Cardiac Hx: Technical Quality: Fair Contrast 1: Total Dose (mL): Contrast 2: Total Dose (mL): MEASUREMENTS (Male / Female) Normal Values 2D ECHO LV Diastolic Diameter PLAX 3.6 cm 4.2 - 5.9 / 3.9 - 5.3 cm LV Systolic Diameter PLAX 2.0 cm IVS Diastolic Thickness 1.1 cm 0.6 - 1.0 / 0.6 - 0.9 cm LVPW Diastolic Thickness 1.2 cm 0.6 - 1.0 / 0.6 - 0.9 cm LV Relative Wall Thickness 0.6 RV Internal Dim ED PLAX 1.7 cm LA Systolic Diameter LX 2.9 cm 3.0 - 4.0 / 2.7 - 3.8 cm LV Diastolic Volume MOD BP 37.1 cm??? 67 - 155 / 56 - 104 cm??? LV Systolic Volume MOD BP 15.0 cm??? - 58 / 19 - 49 cm??? LV Ejection Fraction MOD BP 59.4 % >= 55 % LV Cardiac Index MOD BP 1417.6 cm???/min???m??? LV Diastolic Volume MOD 4C 48.1 cm??? LV Systolic Volume MOD 4C 13.1 cm??? LV Ejection Fraction MOD 4C 72.9 % LV Cardiac Index MOD 4C 2258.0 cm???/min???m??? LV Diastolic Length 4C 6.3 cm LV Systolic Length 4C 5.1 cm LV Diastolic Volume MOD 2C 24.5 cm??? LV Systolic Volume MOD 2C 15.9 cm??? LV Ejection Fraction MOD 2C 35.1 % LV Cardiac Index MOD 2C 552.2 cm???/min???m??? LV Diastolic Length 2C 5.3 cm LV Systolic Length 2C 4.7 cm LA Volume 46.0 cm??? 18 - 58 / 22 - 52 cm??? LA Volume Index 28.5 cm???/m??? 16 - 28 cm???/m??? M-MODE Aortic Root Diameter MM 3.2 cm LA Systolic Diameter MM 3.4 cm LA Ao Ratio MM 1.0 AV Cusp Separation MM 1.5 cm DOPPLER MV Area PHT 3.4 cm??? Mitral E Point Velocity 70.7 cm/s Mitral A Point Velocity 94.4 cm/s Mitral E to A Ratio 0.7 MV Deceleration Time 223.0 ms TR Peak Velocity 184.2 cm/s TR Peak Gradient 13.6 mmHg FINDINGS Left Ventricle Left ventricular ejection fraction is estimated at 55-60%. Mildly increased septal wall thickness. Mildly increased posterior wall thickness. Normal left ventricular wall motion. Left ventricular cavity size normal. Right Ventricle Normal right ventricular size and function. Right ventricular systolic pressure within normal limits. Right Atrium Normal right atrial size. Left Atrium Normal left atrial size. Mitral Valve Structurally normal mitral valve. Trace mitral regurgitation. No mitral stenosis. Aortic Valve Trileaflet aortic valve. No aortic valve stenosis or regurgitation. Tricuspid Valve Structurally normal tricuspid valve. No tricuspid stenosis. Trace to mild tricuspid regurgitation. Pulmonic Valve Structurally normal pulmonic valve. Trace pulmonic regurgitation. No pulmonic stenosis. Pericardium Large pericardial effusion. Echocardiographic findings suggest a hemodynamically significant pericardial effusion. Left pleural effusion. Aorta Normal size aortic root and proximal ascending aorta. CONCLUSIONS Normal LV size and systolic function. Large pericardial effusion noted but no clearcut evidence of tamponade. Concentric LVH noted Previewed by: Dr. Jj Murcia MD (Electronically Signed) Final Date: 04 June 2024 10:10
--- NOTE | 2024-06-04 11:04 | P.CRDCN ---
History of Present Illness Consult date: 06/04/24 Reason for Consult (text): Chest pain, cardiomegaly, pleural effusion History of present illness: This is a 74-year-old female patient of Dr. Khalil with past medical history of moderate pericardial effusion, coronary artery calcifications, atrial fibrillation on Eliquis, tobacco use and dependence, 60 pound weight loss of 60 pounds. We have been asked to evaluate the patient for chest pain, cardiomegaly, pleural effusion. Patient was seen in the office with Dr. Khalil yesterday and the plan was to check an echocardiogram for pericardial effusion, Lexiscan stress test, albuterol inhaler and patient was advised to go to the emergency center if she has any worsening symptoms. Patient has been having low-grade fevers since early April along with some chest discomfort, shortness of breath. Due to her shortness of breath, she decided to come into the ER yesterday. Patient is seen today in the emergency center waiting for a bed on the cardiac stepdown unit. Blood pressure 131/85, heart rate 105, pulse ox 93% on 2 L nasal cannula. EKG: Sinus tachycardia 105 bpm Chest x-ray: Moderate left pleural effusion and pulmonary vascular congestion. CT chest: Pericardial effusion measuring 3.3 cm. Slow-growing chronic pericard ial effusion. Large left pleural effusion. Left lower lobe collapse likely due to compressive changes from left pleural effusion and pericardial effusion. Esophageal dilatation with debris. Right lower lobe pulmonary nodule measuring 14 x 12 mm Chest ultrasound revealed left pleural effusion pocket 7.6 cm Echocardiogram reveals normal LV size and systolic function. Large pericardial effusion noted but no clear-cut evidence of tamponade. Concentric LVH. Laboratory studies: WBC 14 and now 12.6, hemoglobin 10.4. Sodium 135. Initial potassium 2.1 now 3.1. BUN 6 creatinine 0.46, CO2 34, chloride 92. Calcium initially 6 and now 8.3. Magnesium 1.4. Alkaline phosphatase 290. C-reactive protein 17.3. proBNP 631. Procalcitonin 0.42. Heterophile, influenza A, influenza B, RSV, COVID-19, group A strep all not detected. Home cardiac medications: Amiodarone 100 mg daily, Eliquis 5 mg twice daily, Lasix [address] coronary angiography at [facility], report is not available Review Of Systems: At the time of my exam: CONSTITUTIONAL: Denies fever or chills. HEENT: Denies blurred vision, vision changes, or eye pain. Denies hemoptysis CARDIOVASCULAR: Denies chest pain. Denies orthopnea. Denies PND. Denies palpitations RESPIRATORY: Denies shortness of breath. GASTROINTESTINAL: Denies abdominal pain. Denies nausea or vomiting. HEMATOLOGIC: Denies bleeding disorders. GENITOURINARY: Denies any blood in urine. SKIN: Denies puritis. Denies rash. Physical examination: Gen: This is a 74-year-old female in no acute distress VS: reviewed HEENT: Head is atraumatic, normocephalic. Pupils equal, round. Sclerae is anicteric. NECK: Supple. No JVD. LUNGS: Diminished breath sounds bilaterally. No intercostal retractions. HEART: Regular rate and rhythm. No murmur. ABDOMEN: Soft No tenderness. EXTREMITIES: No pedal edema. No calf tenderness. NEUROLOGICAL: Patient is awake, alert and oriented x3. Assessment: Moderate pericardial effusion Large left pleural effusion Electrolyte abnormalities with hypokalemia, hypomagnesemia, hypocalcemia Paroxysmal atrial fibrillation Unexplained weight loss of 60 pounds Tobacco use and dependence, quit last month Coronary artery calcifications Plan: Resume patient's home cardiac medications with the following changes Hold Eliquis Add colchicine 0.6 mg daily Consult cardio thoracic surgery for pericardial effusion and requesting cytology Further recommendations to follow based upon clinical course Thank you kindly for this consultation. Nurse practitioner note has been reviewed, I agree with documented findings and plan of care. Patient was seen and examined. Past Medical History Past Medical History: Atrial Fibrillation, GERD/Reflux Additional Past Medical History / Comment(s): MigraineS. Food gets stuck when swallowing. hx ABD PAIN. HEMMROIDS, gallstone, optic nerve damage tatiana eyes History of Any Multi-Drug Resistant Organisms: None Reported Past Surgical History: Breast Surgery Additional Past Surgical History / Comment(s): left breast lumpectomy x 2. Past Anesthesia/Blood Transfusion Reactions: No Reported Reaction Past Psychological History: Depression Smoking Status: Current every day smoker, Former smoker Past Alcohol Use History: Rare Past Drug Use History: None Reported - Past Family History Brother(s) Family Medical History: Pulmonary Embolus Mother Additional Family Medical History / Comment(s): from Alzheimer's Father Additional Family Medical History / Comment(s): from unknown cause, possibly his heart Medications and Allergies Home Medications Medication Instructions Recorded Confirmed Type Apixaban [Eliquis] 5 mg PO BID 05/22/24 06/04/24 History Furosemide [Lasix] 20 mg PO DAILY 05/22/24 06/04/24 History Multivit-Min/Iron/Folic/Lutein 1 tab PO DAILY 05/22/24 06/04/24 History [Centrum Silver Women Tablet] Omeprazole [PriLOSEC] 20 mg PO AC-BRKFST 05/22/24 06/04/24 History Amiodarone HCl [Pacerone] 200 mg PO DAILY #30 tab 05/27/24 06/04/24 Rx Acetaminophen Tab [Tylenol] 650 - 975 mg PO Q6H PRN 06/04/24 06/04/24 History Albuterol Sulfate [Albuterol 2 puff PO RT-QID PRN 06/04/24 06/04/24 History Sulfate Hfa] Allergies Allergy/AdvReac Type Severity Reaction Status Date / Time No Known Allergies Allergy Verified 06/04/24 06:59 Physical Exam Vitals: Vital Signs Temp Pulse Resp BP Pulse Ox 06/04/24 05:56 98.4 F 86 16 117/78 95 06/04/24 04:02 87 16 141/83 98 06/04/24 01:04 88 16 119/82 97 06/04/24 00:06 98.0 F 89 16 126/79 98 06/03/24 22:57 99.1 F 96 18 118/77 98 06/03/24 20:47 101.0 F H 103 H 18 156/93 06/03/24 19:00 101.6 F H 107 H 20 147/82 97 Intake and Output 06/03/24 06/04/24 06/04/24 22:59 06:59 14:59 Other: Weight 58.967 kg Results 06/04/24 06:22 06/04/24 06:22 Cardiac Enzymes 06/03/24 06/03/24 06/03/24 Range/Units 19:32 21:29 23:05 AST 24 33 (14-36) U/L Troponin I <0.012 (0.000-0.034) ng/mL Coagulation 06/03/24 Range/Units 19:32 PT 11.9 (10.0-12.5) sec APTT 31.7 H (22.0-30.0) sec CBC 06/03/24 06/04/24 Range/Units 19:32 06:22 WBC 14.0 H 12.6 H (3.8-10.6) k/uL RBC 3.63 L 3.71 L (3.80-5.40) m/uL Hgb 10.4 L 10.4 L (11.4-16.0) gm/dL Hct 32.2 L 32.6 L (34.0-46.0) % Plt Count 366 421 (150-450) k/uL Comprehensive Metabolic Panel 06/03/24 06/03/24 06/04/24 Range/Units 21:29 23:05 06:22 Sodium 135 L 132 L 135 L (137-145) mmol/L Potassium 2.1 L* 2.4 L* 3.1 L (3.5-5.1) mmol/L Chloride 104 91 L 92 L (98-107) mmol/L Carbon Dioxide 26 35 H 34 H (22-30) mmol/L BUN 6 L 9 7 (7-17) mg/dL Creatinine 0.38 L 0.53 0.46 L (0.52-1.04) mg/dL Glucose 95 127 H 108 H (74-99) mg/dL Calcium 6.0 L* 8.1 L 8.3 L (8.4-10.2) mg/dL AST 24 33 (14-36) U/L ALT 15 21 (4-34) U/L Alkaline Phosphatase 192 H 290 H (38-126) U/L Total Protein 4.3 L 5.9 L (6.3-8.2) g/dL Albumin 2.1 L 3.1 L (3.5-5.0) g/dL Current Medications Generic Name Dose Route Start Last Admin Trade Name Freq PRN Reason Stop Dose Admin Ceftriaxone Sodium 1 gm/ 50 mls @ 100 mls/hr 06/05/24 01:00 Sodium Chloride IVPB Q24H REGGIE Protocol Miscellaneous Information 1 each 06/04/24 00:06 Potassium Replacement Protocol 1 Each Misc MISCELLANE DAILY PRN Per Protocol Protocol Miscellaneous Information 1 each 06/04/24 02:30 Rx Info: Iv Contrast Was Given 1 Each Misc MISCELLANE 06/06/24 02:31 DAILY PRN Per Protocol Naloxone HCl 0.2 mg 06/04/24 00:18 Naloxone 0.4 Mg/Ml 1 Ml Vial IV Q2M PRN Opioid Reversal Pantoprazole Sodium 40 mg 06/04/24 07:30 Pantoprazole 40 Mg Tablet PO AC-BRKFST REGGIE Intake and Output 06/03/24 06/04/24 06/04/24 22:59 06:59 14:59 Other: Weight 58.967 kg 06/04/24 06:22 06/04/24 06:22
--- NOTE | 2024-06-04 12:17 | XR ---
EXAMINATION TYPE: XR chest 1V portable DATE OF EXAM: 06/04/2024 12:06 PM COMPARISON: Chest radiographs from 06/03/2024, ultrasound chest 06/04/2024, CT chest 06/04/2024 TECHNIQUE: XR chest 1V portable Portable AP radiograph of the chest. CLINICAL INDICATION:Female, 74 years old with history of left pleural effusion; FINDINGS: Lungs/Pleura: No pneumothorax. Left midlung linear scarring or atelectasis. Trace right lower lung at electasis. Small left pleural effusion. Pulmonary vascularity: Unremarkable. Heart/mediastinum: Cardiomediastinal silhouette is enlarged and stable. This is related to known abran cardial effusion. Atherosclerotic calcifications are seen in the aorta. Musculoskeletal: No acute osseous pathology. IMPRESSION: 1. Small left pleural effusion status post thoracentesis without sizable pneumothorax. 2. Stable enlarged cardiac silhouette related to known moderate to large pericardial effusion seen o n CT chest earlier today. [facility], , 06/04/2024 12:14 PM
--- NOTE | 2024-06-04 12:19 | US ---
EXAMINATION TYPE: US thoracentesis DATE OF EXAM: 06/04/2024 CLINICAL HISTORY: 74-year-old female with left-sided pleural effusion and shortness of breath. Cough. Referred for thoracentesis. The procedure was discussed with the patient. The risks, complications, benefits, and alternatives we re discussed and any questions were answered. Informed consent was obtained. The patient was placed s upine on the ultrasound table and prepped and draped in the usual sterile fashion. Initial ultrasound shows the patient's moderate size left pleural effusion. Deeper, we note the patie nt's moderate to large pericardial effusion. The pleural effusion pocket is targeted. All elements of maximal barrier technique were utilized. Ultrasound was utilized to determine the precise skin entry site posterior lower left hemithorax. Utilizing trocar technique and a 6 Bengali safety centesis catheter, access into the pleural fluid col lection was obtained without difficulty. Initial sample of 110 mL clear chidi fluid into syringes were obtained, labeled, and sent for laborat ory analysis. Subsequently, approximately a total of 450 mL of clear, chidi fluid was removed. Aspiration was stopped when the patient began to experience coughing. Catheter was removed, hemostasi s obtained, and a dressing placed. The patient was stable throughout the procedure and remained stable upon discharge to x-ray. IMPRESSION: Successful diagnostic and therapeutic left-sided thoracentesis under ultrasound guidance. 450 mL of f luid removed. Laboratory analysis pending. [facility], , 06/04/2024 12:16 PM
--- NOTE | 2024-06-04 13:51 | P.CONS ---
History of Present Illness - Reason for Consult Consult date: 06/04/24 lung mass Requesting physician: César Penny - Chief Complaint weak, cough - History of Present Illness Patient is a 74-year-old female with a PMH of A-fib on Eliquis, PUD, GERD, smoking Hx who presented to ER with c/o of fever, cough and SOB, she also reports night sweats and unintnetional wt loss of 60lbs over the last 2 years, with some wt gain after being on pred for vision loss earlier this year, wt has leveled off now. Symptoms are associated with progressive fatigue as well. She follows with Dr. Murcia for lung nodule. She had low dose lung CT 03/05/24 for Hx of smoking (quit last month). A 1.1 cm RLL spiculated mass was seen. PET 04/03/24 reports mass 9mm, findings concerning for granulomatous change vs malignancy, surveillance recommended. No other abn findings on imaging. Pt denies DAMON, dizziness, dysphagia, N,V, hemoptysis, acute changes in bowel or bladder. She was going to have cardioversion for new onset a-fib but, heart rhythm had converted by the time of the procedure so, she was placed on eliquis. CXR reports moderate left-sided pleural effusion with pulmonary vascular congestion. US chest 7.[address] effusion marked for thoracentesis. CT chest reports pericardial effusion, lt pleural effusion and rt pulm nodule. Labs show mild leukocytosis 12.6, mild anemia Hgb 10.6. Na+ and K+ low, Ca++ very low. Review of Systems 10 point ROS is neg except as stated in HPI Past Medical History Past Medical History: Atrial Fibrillation, GERD/Reflux Additional Past Medical History / Comment(s): MigraineS. Food gets stuck when swallowing. hx ABD PAIN. HEMMROIDS, gallstone, optic nerve damage tatiana eyes History of Any Multi-Drug Resistant Organisms: None Reported Past Surgical History: Breast Surgery Additional Past Surgical History / Comment(s): left breast lumpectomy x 2. Past Anesthesia/Blood Transfusion Reactions: No Reported Reaction Past Psychological History: Depression Smoking Status: Current every day smoker, Former smoker Past Alcohol Use History: Rare Past Drug Use History: None Reported - Past Family History Brother(s) Family Medical History: Pulmonary Embolus Mother Additional Family Medical History / Comment(s): from Alzheimer's Father Additional Family Medical History / Comment(s): from unknown cause, possibly his heart Medications and Allergies Home Medications Medication Instructions Recorded Confirmed Type Apixaban [Eliquis] 5 mg PO BID 05/22/24 06/04/24 History Furosemide [Lasix] 20 mg PO DAILY 05/22/24 06/04/24 History Multivit-Min/Iron/Folic/Lutein 1 tab PO DAILY 05/22/24 06/04/24 History [Centrum Silver Women Tablet] Omeprazole [PriLOSEC] 20 mg PO AC-BRKFST 05/22/24 06/04/24 History Amiodarone HCl [Pacerone] 200 mg PO DAILY #30 tab 05/27/24 06/04/24 Rx Acetaminophen Tab [Tylenol] 650 - 975 mg PO Q6H PRN 06/04/24 06/04/24 History Albuterol Sulfate [Albuterol 2 puff PO RT-QID PRN 06/04/24 06/04/24 History Sulfate Hfa] Allergies Allergy/AdvReac Type Severity Reaction Status Date / Time No Known Allergies Allergy Verified 06/04/24 06:59 Physical Exam Vitals: Vital Signs Temp Pulse Resp BP Pulse Ox 06/04/24 08:08 98.1 F 105 H 22 131/85 93 L 06/04/24 05:56 98.4 F 86 16 117/78 95 06/04/24 04:02 87 16 141/83 98 06/04/24 01:04 88 16 119/82 97 06/04/24 00:06 98.0 F 89 16 126/79 98 06/03/24 22:57 99.1 F 96 18 118/77 98 06/03/24 20:47 101.0 F H 103 H 18 156/93 06/03/24 19:00 101.6 F H 107 H 20 147/82 97 Intake and Output 06/03/24 06/04/24 06/04/24 22:59 06:59 14:59 Other: Weight 58.967 kg - Constitutional General appearance: average body habitus, cooperative, no acute distress - EENT Eyes: anicteric sclerae, EOMI ENT: hearing grossly normal, normal oropharynx - Neck Neck: no lymphadenopathy - Respiratory Respiratory: bilateral: CTA - Cardiovascular Rhythm: regular Heart sounds: normal: S1, S2 Abnormal Heart Sounds: no systolic murmur, no diastolic murmur, no rub, no S3 Gallop, no S4 Gallop, no click, no other leg Peripheral Edema: bilateral: None - Gastrointestinal General gastrointestinal: no absent bowel sounds, no decreased bowel sounds, no distended, no hepatomegaly, no hyperactive bowel sounds, normal bowel sounds, no organomegaly, no rigid, no scaphoid, soft, no splenomegaly, no tenderness, no umbilical hernia, no ventral hernia - Integumentary Integumentary: normal - Neurologic Neurologic: CNII-XII intact - Musculoskeletal Musculoskeletal: strength equal bilaterally - Psychiatric Psychiatric: A&O x's 3, appropriate affect, intact judgment & insight Results CBC & Chem 7: 06/04/24 06:22 06/04/24 06:22 Labs: Abnormal Lab Results - Last 24 Hours (Table) 06/03/24 06/03/24 06/03/24 Range/Units 19:32 19:32 19:37 WBC 14.0 H (3.8-10.6) k/uL RBC 3.63 L (3.80-5.40) m/uL Hgb 10.4 L (11.4-16.0) gm/dL Hct 32.2 L (34.0-46.0) % Neutrophils # 11.3 H (1.3-7.7) k/uL APTT 31.7 H (22.0-30.0) sec Sodium (137-145) mmol/L Potassium (3.5-5.1) mmol/L Chloride (98-107) mmol/L Carbon Dioxide (22-30) mmol/L BUN (7-17) mg/dL Creatinine (0.52-1.04) mg/dL Glucose (74-99) mg/dL Plasma Lactic Acid Ezekiel 2.2 H* (0.7-2.0) mmol/L Calcium (8.4-10.2) mg/dL Magnesium (1.6-2.3) mg/dL Alkaline Phosphatase (38-126) U/L C-Reactive Protein (<1.0) mg/dL Total Protein (6.3-8.2) g/dL Albumin (3.5-5.0) g/dL Urine Protein (Negative) Urine Blood (Negative) Ur Leukocyte Esterase (Negative) Urine RBC (0-5) /hpf Urine WBC (0-5) /hpf Urine Bacteria (None) /hpf Hyaline Casts (0-2) /lpf Urine Mucus (None) /hpf 06/03/24 06/03/24 06/03/24 Range/Units 21:29 23:05 23:20 WBC (3.8-10.6) k/uL RBC (3.80-5.40) m/uL Hgb (11.4-16.0) gm/dL Hct (34.0-46.0) % Neutrophils # (1.3-7.7) k/uL APTT (22.0-30.0) sec Sodium 135 L 132 L (137-145) mmol/L Potassium 2.1 L* 2.4 L* (3.5-5.1) mmol/L Chloride 91 L (98-107) mmol/L Carbon Dioxide 35 H (22-30) mmol/L BUN 6 L (7-17) mg/dL Creatinine 0.38 L (0.52-1.04) mg/dL Glucose 127 H (74-99) mg/dL Plasma Lactic Acid Ezekiel (0.7-2.0) mmol/L Calcium 6.0 L* 8.1 L (8.4-10.2) mg/dL Magnesium 1.4 L (1.6-2.3) mg/dL Alkaline Phosphatase 192 H 290 H (38-126) U/L C-Reactive Protein 17.3 H (<1.0) mg/dL Total Protein 4.3 L 5.9 L (6.3-8.2) g/dL Albumin 2.1 L 3.1 L (3.5-5.0) g/dL Urine Protein Trace H (Negative) Urine Blood Moderate H (Negative) Ur Leukocyte Esterase Small H (Negative) Urine RBC 51 H (0-5) /hpf Urine WBC 13 H (0-5) /hpf Urine Bacteria Occasional H (None) /hpf Hyaline Casts 33 H (0-2) /lpf Urine Mucus Few H (None) /hpf 06/04/24 06/04/24 Range/Units 06:22 06:22 WBC 12.6 H (3.8-10.6) k/uL RBC 3.71 L (3.80-5.40) m/uL Hgb 10.4 L (11.4-16.0) gm/dL Hct 32.6 L (34.0-46.0) % Neutrophils # (1.3-7.7) k/uL APTT (22.0-30.0) sec Sodium 135 L (137-145) mmol/L Potassium 3.1 L (3.5-5.1) mmol/L Chloride 92 L (98-107) mmol/L Carbon Dioxide 34 H (22-30) mmol/L BUN (7-17) mg/dL Creatinine 0.46 L (0.52-1.04) mg/dL Glucose 108 H (74-99) mg/dL Plasma Lactic Acid Ezekiel (0.7-2.0) mmol/L Calcium 8.3 L (8.4-10.2) mg/dL Magnesium (1.6-2.3) mg/dL Alkaline Phosphatase (38-126) U/L C-Reactive Protein (<1.0) mg/dL Total Protein (6.3-8.2) g/dL Albumin (3.5-5.0) g/dL Urine Protein (Negative) Urine Blood (Negative) Ur Leukocyte Esterase (Negative) Urine RBC (0-5) /hpf Urine WBC (0-5) /hpf Urine Bacteria (None) /hpf Hyaline Casts (0-2) /lpf Urine Mucus (None) /hpf Comments: ECHO report reviewed Low dose CT and PET scans reviewed Chest x-ray: report reviewed CT scan - chest: report reviewed Assessment and Plan (1) FUO (fever of unknown origin) Current Visit: Yes Status: Acute Priority: High Code(s): R50.9 - FEVER, UN SPECIFIED SNOMED Code(s): 0335141 (2) Pericardial effusion Current Visit: Yes Status: Acute Code(s): I31.39 - OTHER PERICARDIAL EFFUSION (NONINFLAMMATORY) SNOMED Code(s): 288545574 (3) Pleural effusion Current Visit: Yes Status: Acute Priority: High Code(s): J90 - PLEURAL EFFUSION, NOT ELSEWHERE CLASSIFIED SNOMED Code(s): 49639936 (4) Lung mass Current Visit: Yes Status: Acute Priority: Medium Code(s): R91.8 - OTHER NONSPECIFIC ABNORMAL FINDING OF LUNG FIELD SNOMED Code(s): 601568914 Plan: Fever of unknown origin -Pancultures ordered -Empiric antibiotics have been initiated -Infectious disease consulted Pericardial effusion, pleural effusion -Unknown cause for both. Inflammatory workup ordered. -It was discussed with patient and her at bedside potential causes for fluid accumulation around the heart as well as the lung. Unfortunately, malignancy is in the differential. -Case discussed with cardiothoracic surgery ORDER BUILDER LOADER. Plans for Pericardiocentesis and possibly thoracentesis at the same time. -Pending cytology on both specimens. Right lower lobe lung nodule. -Found initially on low dose CT chest in February 2024. PET in Mar reported it to be a bit smaller, possible granulomatous dz vs malignancy -Follows with Pulmonary. Further recommendations from an Oncology standpoint based on cytology. Doctor attests: I performed a history and physical examination of this patient, developed impression and plan of care. Discussed with dictator. I agree with dictators note, documented as a scribe.
[2024-06-04 15:38] LABS: Reticulocyte % 2.6 % (0.5-2.0)
[2024-06-04] MEDS: ACETAMINOPHEN TAB 325 MG TAB PO PRN (15:55)
[2024-06-04] MEDS ORDERED: VANCOMYCIN IV PER PHARMACY 1 EACH MISC MISCELLANE PRN (16:43)
[2024-06-04] MEDS: VANCOMYCIN 1,250 MG in SODIUM CHLORIDE 0.9% 250 ML IVPB ONE (17:41)
[2024-06-04] MEDS: CEFEPIME 2 GM in SODIUM CHLORIDE 0.9% 100 ML IVPB SCH (19:59)
[2024-06-04 21:50] LABS: % Iron Saturation 6.93 (12.00-45.00); Iron 14 UG/DL (50-170); Rheumatoid Factor, Qnt <15 IU/mL (0-15); Total Iron Binding Capacity 202 UG/DL (228-460)
[2024-06-05 04:37] LABS: Appearance,BF Clumped (Clear)
[2024-06-05 04:58] LABS: Amylase, Fluid Source Pleural Fluid; Amylase,Body Fluid 50 U/L; Glucose, BF Source Pleural Fluid; Glucose, Body Fluid 121 mg/dL; LDH, Body Fluid Source Pleural Fluid
[2024-06-05] MEDS: VANCOMYCIN 1,000 MG in SODIUM CHLORIDE 0.9% 250 ML IVPB SCH (05:58)
[2024-06-05 06:57] LABS: Glucose,Whole Blood 114 mg/dL (70-110)
[2024-06-05] MEDS: IV FLUID CONTINUATION 1,000 ML IV ONE (07:06)
[2024-06-05] MEDS: MIDAZOLAM 2 MG/2 ML VIAL IV ONE (07:11)
--- NOTE | 2024-06-05 07:17 | P.CONS ---
History of Present Illness - Reason for Consult Consult date: 06/04/24 SIRS Requesting physician: Rossy Griffin - Chief Complaint Shortness of breath and cough x 1 month - History of Present Illness Patient is a 74-year-old female with a past medical his significant for atrial fibrillation reflux pneumonia previous history of smoking presenting to the hospital for evaluation of increasing shortness of breath that apparently has been getting worse over the last 1 month patient also have a cough which has been moderate intensity but not bringing up any sputum and complaining of intermittent fever low-grade highest has been 100.4 F with night sweats and occasional chest pain patient has been evaluated in the outpatient setting and has received 2 different courses of antibiotic therapy did not have any improvement as the patient presented to the hospital on arrival to the ER patient did have a temperature of 101.6 degrees Fahrenheit patient was tachycardic but not hypotensive or hypoxic no need for supplemental oxygen patie nt did have a white count of 14,000 with a left shift creatinine was normal potassium was low liver enzymes are normal urine is mildly positive patient tested negative for influenza RSV or COVID patient did have a chest x-ray followed by CT of the chest did shows evidence of pericardial effusion measuring up to 3.3 cm in thickness and large left effusion left lower lobe collapse which is likely due to compressive atelectasis esophageal dilatation with diabetes and right lower lobe pulmonary nodule patient was started on Rocephin infectious disease was consulted for further management of antibiotic therapy patient did have left-sided thoracentesis completed with results currently pending Review of Systems Positive point and negatives has been mentioned in the HPI, complete review of systems was performed and all other systems are negative Past Medical History Past Medical History: Atrial Fibrillation, GERD/Reflux, Pneumonia Additional Past Medical History / Comment(s): MigraineS. Food gets stuck when swallowing. hx ABD PAIN. HEMMROIDS, gallstone, optic nerve damage tatiana eyes; COVID in 2022 History of Any Multi-Drug Resistant Organisms: None Reported Past Surgical History: Breast Surgery Additional Past Surgical History / Comment(s): left breast lumpectomy x 2. Past Anesthesia/Blood Transfusion Reactions: No Reported Reaction Past Psychological History: Depression Smoking Status: Former smoker Past Alcohol Use History: Rare Past Drug Use History: None Reported - Past Family History Brother(s) Family Medical History: Pulmonary Embolus Mother Additional Family Medical History / Comment(s): from Alzheimer's Father Additional Family Medical History / Comment(s): from unknown cause, possibly his heart Medications and Allergies Home Medications Medication Instructions Recorded Confirmed Type Apixaban [Eliquis] 5 mg PO BID 05/22/24 06/04/24 History Furosemide [Lasix] 20 mg PO DAILY 05/22/24 06/04/24 History Multivit-Min/Iron/Folic/Lutein 1 tab PO DAILY 05/22/24 06/04/24 History [Centrum Silver Women Tablet] Omeprazole [PriLOSEC] 20 mg PO AC-BRKFST 05/22/24 06/04/24 History Amiodarone HCl [Pacerone] 200 mg PO DAILY #30 tab 05/27/24 06/04/24 Rx Acetaminophen Tab [Tylenol] 650 - 975 mg PO Q6H PRN 06/04/24 06/04/24 History Albuterol Sulfate [Albuterol 2 puff PO RT-QID PRN 06/04/24 06/04/24 History Sulfate Hfa] Allergies Allergy/AdvReac Type Severity Reaction Status Date / Time No Known Allergies Allergy Verified 06/05/24 07:08 Physical Exam Vitals: Vital Signs Temp Pulse Resp BP Pulse Ox 06/04/24 10:25 98 20 123/82 06/04/24 08:08 98.1 F 105 H 22 131/85 93 L 06/04/24 05:56 98.4 F 86 16 117/78 95 06/04/24 04:02 87 16 141/83 98 06/04/24 01:04 88 16 119/82 97 06/04/24 00:06 98.0 F 89 16 126/79 98 06/03/24 22:57 99.1 F 96 18 118/77 98 06/03/24 20:47 101.0 F H 103 H 18 156/93 06/03/24 19:00 101.6 F H 107 H 20 147/82 97 Intake and Output 06/03/24 06/04/24 06/04/24 22:59 06:59 14:59 Other: Weight 58.967 kg GENERAL DESCRIPTION: Elderly female lying in bed, no distress. No tachypnea or accessory muscle of respiration use. HEENT: Shows Pallor , no scleral icterus. Oral mucous membrane is dry. No pharyngeal erythema or thrush NECK: Trachea central, no thyromegaly. LUNGS: Unlabored breathing. Decreased breath sound at the base HEART: S1, S2, regular rate and rhythm. No loud murmur ABDOMEN: Soft, no tenderness , guarding or rigidity, no organomegaly EXTREMITIES: No edema of feet. SKIN: No rash, no masses palpable. NEUROLOGICAL: The patient is awake, alert, oriented x3, mood and affect normal. Results CBC & Chem 7: 06/04/24 06:22 06/04/24 06:22 Labs: Abnormal Lab Results - Last 24 Hours (Table) 06/03/24 06/03/24 06/03/24 Range/Units 19:32 19:32 19:37 WBC 14.0 H (3.8-10.6) k/uL RBC 3.63 L (3.80-5.40) m/uL Hgb 10.4 L (11.4-16.0) gm/dL Hct 32.2 L (34.0-46.0) % Neutrophils # 11.3 H (1.3-7.7) k/uL APTT 31.7 H (22.0-30.0) sec Sodium (137-145) mmol/L Potassium (3.5-5.1) mmol/L Chloride (98-107) mmol/L Carbon Dioxide (22-30) mmol/L BUN (7-17) mg/dL Creatinine (0.52-1.04) mg/dL Glucose (74-99) mg/dL Plasma Lactic Acid Ezekiel 2.2 H* (0.7-2.0) mmol/L Calcium (8.4-10.2) mg/dL Magnesium (1.6-2.3) mg/dL Alkaline Phosphatase (38-126) U/L C-Reactive Protein (<1.0) mg/dL Total Protein (6.3-8.2) g/dL Albumin (3.5-5.0) g/dL Urine Protein (Negative) Urine Blood (Negative) Ur Leukocyte Esterase (Negative) Urine RBC (0-5) /hpf Urine WBC (0-5) /hpf Urine Bacteria (None) /hpf Hyaline Casts (0-2) /lpf Urine Mucus (None) /hpf 06/03/24 06/03/24 06/03/24 Range/Units 21:29 23:05 23:20 WBC (3.8-10.6) k/uL RBC (3.80-5.40) m/uL Hgb (11.4-16.0) gm/dL Hct (34.0-46.0) % Neutrophils # (1.3-7.7) k/uL APTT (22.0-30.0) sec Sodium 135 L 132 L (137-145) mmol/L Potassium 2.1 L* 2.4 L* (3.5-5.1) mmol/L Chloride 91 L (98-107) mmol/L Carbon Dioxide 35 H (22-30) mmol/L BUN 6 L (7-17) mg/dL Creatinine 0.38 L (0.52-1.04) mg/dL Glucose 127 H (74-99) mg/dL Plasma Lactic Acid Ezekiel (0.7-2.0) mmol/L Calcium 6.0 L* 8.1 L (8.4-10.2) mg/dL Magnesium 1.4 L (1.6-2.3) mg/dL Alkaline Phosphatase 192 H 290 H (38-126) U/L C-Reactive Protein 17.3 H (<1.0) mg/dL Total Protein 4.3 L 5.9 L (6.3-8.2) g/dL Albumin 2.1 L 3.1 L (3.5-5.0) g/dL Urine Protein Trace H (Negative) Urine Blood Moderate H (Negative) Ur Leukocyte Esterase Small H (Negative) Urine RBC 51 H (0-5) /hpf Urine WBC 13 H (0-5) /hpf Urine Bacteria Occasional H (None) /hpf Hyaline Casts 33 H (0-2) /lpf Urine Mucus Few H (None) /hpf 06/04/24 06/04/24 Range/Units 06:22 06:22 WBC 12.6 H (3.8-10.6) k/uL RBC 3.71 L (3.80-5.40) m/uL Hgb 10.4 L (11.4-16.0) gm/dL Hct 32.6 L (34.0-46.0) % Neutrophils # (1.3-7.7) k/uL APTT (22.0-30.0) sec Sodium 135 L (137-145) mmol/L Potassium 3.1 L (3.5-5.1) mmol/L Chloride 92 L (98-107) mmol/L Carbon Dioxide 34 H (22-30) mmol/L BUN (7-17) mg/dL Creatinine 0.46 L (0.52-1.04) mg/dL Glucose 108 H (74-99) mg/dL Plasma Lactic Acid Ezekiel (0.7-2.0) mmol/L Calcium 8.3 L (8.4-10.2) mg/dL Magnesium (1.6-2.3) mg/dL Alkaline Phosphatase (38-126) U/L C-Reactive Protein (<1.0) mg/dL Total Protein (6.3-8.2) g/dL Albumin (3.5-5.0) g/dL Urine Protein (Negative) Urine Blood (Negative) Ur Leukocyte Esterase (Negative) Urine RBC (0-5) /hpf Urine WBC (0-5) /hpf Urine Bacteria (None) /hpf Hyaline Casts (0-2) /lpf Urine Mucus (None) /hpf Assessment and Plan (1) Sepsis Current Visit: Yes Status: Acute Code(s): A41.9 - SEPSIS, UNSPECIFIED ORGANISM SNOMED Code(s): 30636455 (2) Pneumonia Current Visit: Yes Status: Acute Code(s): J18.9 - PNEUMONIA, UNSPECIFIED ORGANISM SNOMED Code(s): 962410550 Plan: 1patient presenting to the hospital with sepsis in this patient who did have fever elevated white count source likely pneumonia with a question of possible empyema as the patient did have significant effusion and has failed outpatient oral antibiotic therapy 2we will try to obtain sputum for Gram stain and culture and follow-up on the pleural fluid analysis and culture 3discontinue Rocephin 4we will start the patient on cefepime and vancomycin pending completion of the workup We will follow on clinical condition and cultures to further adjust medication if needed Thank you for this consultation we will follow the patient along with you Dictation was produced using [employer] dictation software. please excuse any grammatical, word or spelling errors. Time with Patient: Greater than 30
[2024-06-05] MEDS ORDERED: NON FORMULARY DRUG (Omeprazole 20 MG Capsule.Dr) PO SCH (07:30)
[2024-06-05] MEDS ORDERED: PROPOFOL 10 MG/ML 20 ML VIAL IV ONE (07:37)
[2024-06-05] MEDS ORDERED: GLYCOPYRROLATE 0.2 MG/ML 2 ML VIAL ONE (07:37)
[2024-06-05] MEDS ORDERED: KETAMINE HCL IN 0.9 % NACL 50 MG/5 ML SYRINGE ONE (07:37)
[2024-06-05] MEDS ORDERED: fentaNYL (PF) 50 MCG/ML 2 ML AMP ONE (07:37)
[2024-06-05] MEDS ORDERED: MIDAZOLAM 2 MG/2 ML VIAL ONE (07:37)
[2024-06-05] MEDS: LIDOCAINE 1% INJ 10MG/ML (20 ML MDV) SQ ONE ×2 (07:59)
--- NOTE | 2024-06-05 08:00 | XR ---
EXAMINATION TYPE: XR chest 1V portable DATE OF EXAM: 06/05/2024 HISTORY: Status post thoracentesis COMPARISON: 06/04/2024 TECHNIQUE: Single view of the chest is submitted. FINDINGS: Demonstrated are scattered senescent parenchymal change. There is no evidence for focal infiltrate. Cardiomegaly with small left-sided effusion. No evidence for pneumothorax. Pulmonary venous congestio n noted. Hilar and mediastinal structures are within normal limits. Degenerative changes are seen of the dorsal spine. IMPRESSION: 1. Cardiomegaly with small left-sided effusion. No evidence for pneumothorax. Pulmonary venous conge stion noted. [facility], , 06/05/2024 7:57 AM
--- NOTE | 2024-06-05 08:34 | P.OP ---
Date of Procedure: 06/05/24 Preoperative Diagnosis: Pericardial effusion, tamponade Postoperative Diagnosis: Same Procedure(s) Performed: Subxiphoid pericardial window Anesthesia: WENDY BHATT Surgeon: Oscar Wynn Dog Show Judge #1: Odell Wells Estimated Blood Loss (ml): 5 IV fluids (ml): 200 Pathology: other (Pericardial fluid for cytology, cell count, culture, chemistry) Condition: stable Disposition: PACU Indications for Procedure: 74-year-old female presents with from shortness of breath and cough. She has been undergoing a Cardiologic workup. She was found to have pericardial effusion on echocardiography. She was sent to the emergency room from cardiology for admission. In emergency room, she was febrile and tachycardic. She had taken Eliquis the day before. She was admitted and scheduled for urgent pericardial drainage the following day. Eliquis was held. Operative Findings: Pericardium appeared normal. On digital palpation there were no implants. 600 cc of serosanguineous fluid was drained. Description of Procedure: Patient was brought to the operating room and placed supine on the table. Anterior lower chest and abdomen were sterilely prepped and draped. IV sedation was initiated. The subxiphoid region was anesthetized with 1% lidocaine. Incision was made over the xiphoid and carried down through the midline fascia. This was incised and the xiphoid process was grasped and retracted superiorly. Dissection was carried beneath the xiphoid process and the diaphragm was grasped with a [place] clamp. This was pulled inferiorly. Dissection was performed above the diaphragm down to the pericardium. The pericardium was opened transversely and fluid was drained. 32 [place] right angle chest tube was placed through separate stab incision under lidocaine anesthesia laterally and brought through the fascia into the wound. It was positioned along the diaphragm inside the pericardium and secured with an 0 Ethibond suture at the skin. It was connected to a Pleur-evac. Midline fascia was closed with running #1 Vicryl in the subcutaneous tissue similarly. Subcuticular skin closure was performed with 3-0 Vicryl. Skin glue and dry sterile dressings were applied. Patient was transferred ported to recovery in stable hemodynamic condition.
[2024-06-05] MEDS: HYDROmorphone 0.5 MG/0.5 ML SYRINGE IVP PRN (08:43)
--- NOTE | 2024-06-05 08:57 | P.ANPRN ---
Procedure Note - Anesthesia - Invasive Line Right Arterial Line Time Out Performed: Yes (07) Date of Procedure: 06/05/24 Time of Procedure: 07:13 Location of Patient: PreOp Preparation: Sterile Prep, Sterile Dressing Arterial Line Location: Radial (right) Ultrasound Used: No Purpose - Visualization and Identification of Vasculature: No Needle Guage: 20g Image Stored and Saved: No Narrative: Invasive line placement per sterile protocol utilized.
--- NOTE | 2024-06-05 08:57 | XR ---
EXAMINATION TYPE: XR chest 1V portable DATE OF EXAM: 06/05/2024 Comparison: 06/05/2024 Clinical History: 74-year-old female post pericardial window Findings: Generated device projecting at the left mid chest. There is a small residual left pleural effusion an d prominent patchy retrocardiac and left basilar opacity. Pericardial window noted with improvement i n the size of the pericardiac silhouette. Mild enlargement remains. Mild interstitial prominence diann ins as well both lungs. Impression: 1. Pericardial catheter with improvement in the size of the pericardiac silhouette. Mild enlargement remains. 2. Residual small left pleural effusion with prominent adjacent atelectasis and/or consolidation. [facility], , 06/05/2024 8:55 AM
[2024-06-05] MEDS ORDERED: ALBUTEROL NEBULIZED 2.5 MG/3 ML INHALATION PRN (09:38)
[2024-06-05] MEDS ORDERED: ONDANSETRON 4 MG/2 ML VIAL IVP PRN (09:38)
[2024-06-05] MEDS ORDERED: bisacodyL 10 MG SUPP RECTAL PRN (09:38)
[2024-06-05] MEDS: ONDANSETRON 4 MG/2 ML VIAL IVP STA (11:48)
[2024-06-05] MEDS: HYDROcodone/APAP 5-325MG 1 EACH TAB PO PRN (11:56)
[2024-06-05] MEDS: DEXTROSE 5%-0.45% NACL 1,000 ML IV SCH (11:57)
[2024-06-05] MEDS: MULTIVITAMINS, THERA 1 EACH TAB PO SCH (11:57)
[2024-06-05 12:28] LABS: Basophils % (A) 0 %; Eosinophils # (A) 0.1 k/uL (0-0.7); Eosinophils % (A) 1 %; HCT 34.3 % (34.0-46.0); HGB 10.8 gm/dL (11.4-16.0); Hypochromasia Moderate; Lymphocytes # (A) 1.2 k/uL (1.0-4.8); Lymphocytes % (A) 12 %; MCH 28.3 pg (25.0-35.0); MCHC 31.6 g/dL (31.0-37.0); MCV 89.4 fL (80.0-100.0); Mean Platelet Volume 8.4; Monocytes # (A) 0.5 k/uL (0-1.0); Monocytes % (A) 5 %; Neutrophils # (A) 8.5 k/uL (1.3-7.7); Neutrophils % (A) 82 %; Platelet Count 458 k/uL (150-450); RBC 3.84 m/uL (3.80-5.40); RDW 14.4 % (11.5-15.5); WBC 10.5 k/uL (3.8-10.6)
[2024-06-05] MEDS: LACTATED RINGERS 1,000 ML IV SCH (12:36)
[2024-06-05] MEDS: ONDANSETRON 4 MG/2 ML VIAL IVP ONE (12:36)
[2024-06-05 12:44] LABS: African American GFR (CKD) >90 (>60 ml/min/1.73 sqM); Anion Gap 2 mmol/L; Blood Urea Nitrogen 9 mg/dL (7-17); Calcium 7.9 mg/dL (8.4-10.2); Carbon Dioxide 32 mmol/L (22-30); Chloride 99 mmol/L (98-107); Glucose 109 mg/dL (74-99); Magnesium 2.1 mg/dL (1.6-2.3); Non-African American GFR(CKD) >90 (>60 ml/min/1.73 sqM); Potassium 3.4 mmol/L (3.5-5.1); Sodium 133 mmol/L (137-145)
--- NOTE | 2024-06-05 13:31 | P.PN ---
Subjective Progress Note Date: 06/05/24 Hospital Course: 74-year-old female with a PMH of A-fib on Eliquis, peptic ulcer disease, GERD, tobacco abuse who presents to the emergency room with complaints of persistent fever and cough. Patient had recently undergone a low-dose lung CT which had revealed a 1.1 cm right lower lobe spiculated mass with subsequent PET scan on 04/03/2020, revealed that the right lower lobe lung pulmonary nodule had somewhat decreased to 9 mm with findings concerning for granulomatous change versus malignancy with surveillance recommended. There was no evidence of mediastinal lymphadenopathy. n the emergency room a chest x-ray revealed findings of moderate left-sided pleural effusion with pulmonary vascular congestion with EKG showing sinus tach cardia at 105 bpm with diffuse T wave flattening as reviewed by me. Laboratory evaluation was remarkable for leukocytosis of 14.0 with hemoglobin 10.4, sodium 137, creatinine 2.1, lactic acid 2.2, calcium 6.9, magnesium 1.4, alk phos 193, CRP 17.3 with albumin 2.1 with UA abnormal and respiratory infectious panel negative. He had chest CT that showed pericardial effusion, large left pleural effusion, left lower lobe collapse due to compression, esophageal dilatation, right lower lobe pulmonary nodule. Pulmonology was consulted. Underwent thoracentesis. Oncology and cardiology also consulted. Echocardiogram showed LVEF 55 to 60%, large pericardial effusion with no clear-cut evidence of tamponade. Cardiothoracic surgery was consulted. Patient underwent pericardial window today. Subjective: Patient seen and examined at bedside. No acute events overnight. Complaining of some pain around the site of pericardial window. Denies any cough or worsening shortness of breath. Pertinent positives and negatives as discussed above, a complete review of systems was performed and all other systems are negative. Vitals Signs Reviewed. General: Nontoxic, no distress, appears at stated age Derm: Warm, dry, dressing clean, dry, intact, drain in place Head: Atraumatic, normocephalic, symmetric Eyes: EOMI, no lid lag, anicteric sclera Mouth: No lip lesion, mucus membranes moist Cardiovascular: S1S2 reg, no murmur Lungs: CTA bilateral, no rhonchi, no rales, no accessory muscle use Abdominal: Soft, nontender to palpation, no guarding, no appreciable organomegaly Ext: No gross muscle atrophy, no edema, no contractures Neuro: CN II-XI grossly intact, no focal neuro deficits Psych: Alert, oriented, appropriate affect Data Reviewed Today: Pertinent Labs: 10.5, hemoglobin 10.8, platelet 458, sodium 133, potassium 3.4, creatinine 0.43, iron 14, TIBC 202, percent saturation 6.93, ferritin 673, thoracentesis shows LDH of 173, with predominantly lymphocytes, AMNA screen positive, rheumatoid factor negative, ESR 56. Imaging: Chest x-ray independently interpreted, shows improvement in left pleural effusion as well as cardiac silhouette slightly reduced. Assessment and Plan: Active: Left pleural effusion s/p thoracentesis Left pericardial effusion status post pericardial window Hypoxic respiratory failure secondary to above Pulmonary nodule Hypokalemia Hypervolemic hyponatremia Possible complicated bacterial pneumonia with parapneumonic effusion -Cardiothoracic surgery operative note reviewed -Pericardial drain in place -Patient continued on colchicine 0.6 daily -Cultures and cytology pending -Concern for infectious versus malignancy versus autoimmune process -ID following, patient continued on vancomycin, cefepime 2 g IV every 8 hours, monitor for renal toxicity with vancomycin -Oncology also following, cytology pending -40 mg of oral potassium given today -Likely component of hypovolemia, discontinue D5 half-normal saline, encourage oral intake -Repeat BMP and magnesium tomorrow Iron deficiency anemia -Avoid IV iron in case this is infectious cause of pleural effusion Atrial fibrillation, rate controlled -Continue amiodarone 100 mg daily, holding anticoagulation GERD -Continue pantoprazole 40 mg daily DVT ppx: SCD Code status: Full code Anticipated discharge place: Pending clinical course Anticipated discharge time: Pending clinical course Objective - Vital Signs Vital signs: Vital Signs Temp 97.6 F 06/05/24 11:55 Pulse 98 06/05/24 11:55 Resp 17 06/05/24 11:55 BP 120/78 06/05/24 11:55 Pulse Ox 96 06/05/24 11:55 FiO2 Intake & Output 06/04/24 06/05/24 06/05/24 18:59 06:59 18:59 Intake Total 980 Output Total 60 Balance 920 Weight 58.967 kg Intake: IV 500 Oral 480 Output: Chest Tube Drainage 55 Chest Tube Mediastinal 55 Estimated Blood Loss 5 - Labs CBC & Chem 7: 06/05/24 12:05 06/05/24 12:05 Labs: Abnormal Lab Results - Last 24 Hours (Table) 06/04/24 06/04/24 06/04/24 Range/Units 12:09 14:58 14:58 Hgb (11.4-16.0) gm/dL Plt Count (150-450) k/uL Neutrophils # (1.3-7.7) k/uL ESR 56 H (0-30) mm/Hr Retic Count 2.6 H (0.5-2.0) % Sodium (137-145) mmol/L Potassium (3.5-5.1) mmol/L Carbon Dioxide (22-30) mmol/L Creatinine (0.52-1.04) mg/dL Glucose (74-99) mg/dL POC Glucose (mg/dL) (70-110) mg/dL Calcium (8.4-10.2) mg/dL Iron 14 L (50-170) UG/DL TIBC 202 L (228-460) UG/DL % Saturation 6.93 L (12.00-45.00) Transferrin 144.0 L (204.0-354.0) mg/dL Ferritin 673.0 H (10.0-291.0) ng/mL Fluid Appearance Clumped A (Clear) AMNA Screen (Negative) 06/04/24 06/05/24 06/05/24 Range/Units 14:58 06:55 12:05 Hgb 10.8 L (11.4-16.0) gm/dL Plt Count 458 H (150-450) k/uL Neutrophils # 8.5 H (1.3-7.7) k/uL ESR (0-30) mm/Hr Retic Count (0.5-2.0) % Sodium (137-145) mmol/L Potassium (3.5-5.1) mmol/L Carbon Dioxide (22-30) mmol/L Creatinine (0.52-1.04) mg/dL Glucose (74-99) mg/dL POC Glucose (mg/dL) 114 H (70-110) mg/dL Calcium (8.4-10.2) mg/dL Iron (50-170) UG/DL TIBC (228-460) UG/DL % Saturation (12.00-45.00) Transferrin (204.0-354.0) mg/dL Ferritin (10.0-291.0) ng/mL Fluid Appearance (Clear) AMNA Screen POSITIVE A (Negative) 06/05/24 Range/Units 12:05 Hgb (11.4-16.0) gm/dL Plt Count (150-450) k/uL Neutrophils # (1.3-7.7) k/uL ESR (0-30) mm/Hr Retic Count (0.5-2.0) % Sodium 133 L (137-145) mmol/L Potassium 3.4 L (3.5-5.1) mmol/L Carbon Dioxide 32 H (22-30) mmol/L Creatinine 0.43 L (0.52-1.04) mg/dL Glucose 109 H (74-99) mg/dL POC Glucose (mg/dL) (70-110) mg/dL Calcium 7.9 L (8.4-10.2) mg/dL Iron (50-170) UG/DL TIBC (228-460) UG/DL % Saturation (12.00-45.00) Transferrin (204.0-354.0) mg/dL Ferritin (10.0-291.0) ng/mL Fluid Appearance (Clear) AMNA Screen (Negative)
[2024-06-05] MEDS: POTASSIUM CHLORIDE ER 20 MEQ TAB.ER PO STA (15:25)
--- NOTE | 2024-06-05 15:59 | CDI ---
Documentation Clarification Form Date: 06/05/2024 03:22:19 PM From: Iris Delgado RN, CCDS Phone: [phone] Admit Date: 06/04/2024 01:14:00 AM Patient Name: Kandis Woodard Visit Number: [id number] Discharge Date: ATTENTION: The Clinical Documentation Specialists (CDI) and [facility] Coding Staff appreciate your assistance in clarifying documentation. Please respond to the clarification below the line at the bottom and electronically sign. The CDI & [facility] Coding staff will review the response and follow-up if needed. Please note: Queries are made part of the Legal Health Record. If you have any questions, please contact the author of this message via ITS. Doctor/Provider: Abiel Wilkerson Your patient has documentation sepsis in the ID consult on 06/04/24. Based on this information and the findings below, is there an additional diagnosis that is clinically appropriate for this patient? Patient history/risk factors: Atrial Fibrillation, GERD/Reflux Clinical Indicators: 74-year-old present for increasing shortness of breath, cough intermittent fever low-grade highest has been 100.4 F with night sweats. EKG: Tachycardia t 105 bpm with diffuse T wave flattening 06/04 VS: 147/82 107 20 101.6 97 % RA 06/04 Labs WBC 14.0, HGB 10.4 Neutrophils 11.3K+ 2.4 Na 132, lactic acid 2.2 UA: Ur Leukocyte Esterase Small, urine WBC 13 06/03 CXR: moderate left pleural effusion and pulmonary vascular congestion. 06/04: CT Chest: pericardial effusion. Large left pleural effusion. Left lower lobe collapse. Right lower lobe pulmonary nodule. 06/04 H/P: SIRS without obvious infectious etiology 06/04 ID: patient presenting to the hospital with sepsis in this patient who did have fever elevated white count source likely pneumonia with a question of possible empyema as the patient did have significant effusion and has failed outpatient oral antibiotic therapy. Treatment: Vancomycin 1,000 MG IVPB Q 12 HRS (PTD) Cefepime HCL 2 GM IVPB Q 8 HRS Ventolin Nebulized Inhalation RT-QID PRN Is there an additional diagnosis that is clinically appropriate for this patient? [ ] Sepsis present on admission [ x ] SIRS without Sepsis [ ] Unable to determine [ ] Other, please specify (Template Last Reviewed: September 2022) MTDD
--- NOTE | 2024-06-05 17:56 | P.PN ---
Subjective Progress Note Date: 06/05/24 Patient is a 74-year-old female with a past medical his significant for atrial fibrillation reflux pneumonia previous history of smoking presenting to the hospital for evaluation of increasing shortness of breath that apparently has been getting worse over the last 1 month patient did have evidence of left pleural effusion status post thoracocentesis no evidence of pericardial effusion in this patient who is status post pericardial window by CT surgery this morning. On today's evaluation that is 06/05/2024,the patient denies any fever or any chills, patient is breathing slightly comfortably and is currently worsening on room air, the patient denies chest pain shortness of breath and no worsening cough, patient denies abdominal pain, no nausea vomiting or diarrhea. Patient white count normalized to 10.5 creatinine 0.43 pleural fluid cultures pending Objective - Vital Signs Vital signs: Vital Signs Temp 96 F L 06/05/24 16:41 Pulse 91 06/05/24 16:41 Resp 16 06/05/24 16:41 BP 116/63 06/05/24 16:41 Pulse Ox 91 L 06/05/24 16:41 FiO2 Intake & Output 06/04/24 06/05/24 06/05/24 18:59 06:59 18:59 Intake Total 1098 Output Total 290 Balance 808 Weight 58.967 kg Intake: IV 500 Oral 598 Output: Chest Tube Drainage 85 Chest Tube Mediastinal 85 Urine 200 Estimated Blood Loss 5 Other: # Voids 1 - Exam GENERAL DESCRIPTION: An elderly female lying in bed in no distress RESPIRATORY SYSTEM: Unlabored breathing , decreased breath sounds at bases HEART: S1 S2 regular rate and rhythm , ABDOMEN: Soft , no tenderness EXTREMITIES: No edema feet - Labs CBC & Chem 7: 06/05/24 12:05 06/05/24 12:05 Labs: Abnormal Lab Results - Last 24 Hours (Table) 06/04/24 06/04/24 06/04/24 Range/Units 12:09 14:58 14:58 Hgb (11.4-16.0) gm/dL Plt Count (150-450) k/uL Neutrophils # (1.3-7.7) k/uL ESR 56 H (0-30) mm/Hr Sodium (137-145) mmol/L Potassium (3.5-5.1) mmol/L Carbon Dioxide (22-30) mmol/L Creatinine (0.52-1.04) mg/dL Glucose (74-99) mg/dL POC Glucose (mg/dL) (70-110) mg/dL Calcium (8.4-10.2) mg/dL Iron 14 L (50-170) UG/DL TIBC 202 L (228-460) UG/DL % Saturation 6.93 L (12.00-45.00) Transferrin 144.0 L (204.0-354.0) mg/dL Ferritin 673.0 H (10.0-291.0) ng/mL Fluid Appearance Clumped A (Clear) AMNA Screen (Negative) 06/04/24 06/05/24 06/05/24 Range/Units 14:58 06:55 12:05 Hgb 10.8 L (11.4-16.0) gm/dL Plt Count 458 H (150-450) k/uL Neutrophils # 8.5 H (1.3-7.7) k/uL ESR (0-30) mm/Hr Sodium (137-145) mmol/L Potassium (3.5-5.1) mmol/L Carbon Dioxide (22-30) mmol/L Creatinine (0.52-1.04) mg/dL Glucose (74-99) mg/dL POC Glucose (mg/dL) 114 H (70-110) mg/dL Calcium (8.4-10.2) mg/dL Iron (50-170) UG/DL TIBC (228-460) UG/DL % Saturation (12.00-45.00) Transferrin (204.0-354.0) mg/dL Ferritin (10.0-291.0) ng/mL Fluid Appearance (Clear) AMNA Screen POSITIVE A (Negative) 06/05/24 Range/Units 12:05 Hgb (11.4-16.0) gm/dL Plt Count (150-450) k/uL Neutrophils # (1.3-7.7) k/uL ESR (0-30) mm/Hr Sodium 133 L (137-145) mmol/L Potassium 3.4 L (3.5-5.1) mmol/L Carbon Dioxide 32 H (22-30) mmol/L Creatinine 0.43 L (0.52-1.04) mg/dL Glucose 109 H (74-99) mg/dL POC Glucose (mg/dL) (70-110) mg/dL Calcium 7.9 L (8.4-10.2) mg/dL Iron (50-170) UG/DL TIBC (228-460) UG/DL % Saturation (12.00-45.00) Transferrin (204.0-354.0) mg/dL Ferritin (10.0-291.0) ng/mL Fluid Appearance (Clear) AMNA Screen (Negative) Microbiology - Last 24 Hours (Table) 06/04/24 12:09 Gram Stain - Preliminary Pleural Fluid 06/03/24 23:20 Urine Culture - Final Urine,Voided Assessment and Plan (1) Sepsis Current Visit: Yes Status: Acute Code(s): A41.9 - SEPSIS, UNSPECIFIED ORGANISM SNOMED Code(s): 12664015 (2) Pneumonia Current Visit: Yes Status: Acute Code(s): J18.9 - PNEUMONIA, UNSPECIFIED ORGANISM SNOMED Code(s): 893272252 Plan: 1patient presenting to the hospital with sepsis in this patient who did have fever elevated white count source likely pneumonia with a question of possible empyema as the patient did have significant effusion and has failed outpatient oral antibiotic therapy 2requested so far not collected sputum for Gram stain and culture pleural fluid cultures currently pending 3-patient to continue cefepime and vancomycin while waiting for the cultures to be completed Dictation was produced using [email or web address] dictation software. please excuse any grammatical, word or spelling errors. Time with Patient: Less than 30
[2024-06-05 19:16] LABS: ANA Pattern Homogenous; ANA Titer 1:>2560
[2024-06-05] MEDS: SENNOSIDES-DOCUSATE SODIUM 1 EACH TAB PO SCH (19:47)
[2024-06-05 19:56] LABS: Appearance,BF Bloody (Clear)
[2024-06-06 00:28] LABS: Glucose, Body Fluid 91 mg/dL; Total Protein, Body Fluid >3600 mg/dL
[2024-06-06] MEDS: MORPHINE SULFATE 2 MG/ML SYRINGE IVP STA (04:34)
[2024-06-06 07:54] LABS: HCT 32.9 % (34.0-46.0); Hypochromasia Marked; MCH 27.7 pg (25.0-35.0); MCHC 30.4 g/dL (31.0-37.0); Mean Platelet Volume 8.3; Platelet Count 544 k/uL (150-450); RBC 3.61 m/uL (3.80-5.40); RDW 14.2 % (11.5-15.5); WBC 12.9 k/uL (3.8-10.6)
[2024-06-06 08:41] LABS: African American GFR (CKD) >90 (>60 ml/min/1.73 sqM); Anion Gap 5 mmol/L; Blood Urea Nitrogen 8 mg/dL (7-17); Calcium 8.1 mg/dL (8.4-10.2); Carbon Dioxide 33 mmol/L (22-30); Chloride 96 mmol/L (98-107); Glucose 108 mg/dL (74-99); Non-African American GFR(CKD) >90 (>60 ml/min/1.73 sqM); Sodium 134 mmol/L (137-145)
--- NOTE | 2024-06-06 09:07 | P.PN ---
Subjective Progress Note Date: 06/06/24 Principal diagnosis: Pericardial effusion, tamponade. Past medical history significant for recent diagnosis of atrial fibrillation on Eliquis outpatient for anticoagulation although states she is only taking it once a day, COVID in 2022, GERD, previous tobacco dependence with recent cessation. POD #1 Subxiphoid pericardial window. The patient was seen and examined in follow-up today June 06, 2024 at her bedside on the third floor cardiac stepdown unit. She is currently sitting up in bed eating her breakfast, is awake, alert, oriented x 3 and is in no acute apparent distress. Denies any complaints of shortness of breath at this time, although is complaining of some surgical type pain to her chest tube insertion site, currently rating her pain 5 out of 10 on the pain scale. Subxiphoid chest tube remains in place with 15 mL output thin serosanguineous drainage in the last 8 hours and 100 mL output since surgery. No air leak is present. She remains hemodynamically stable and is currently on no inotropic or pressor support. Oxygen saturations are 94% on room air and she is achieving 1250 mL on her incentive spirometry with encouragement. Remote telemetry is showing normal sinus rhythm heart rate 86 bpm. Pericardial fluid cytology results remain pe nding. Laboratory and chest x-ray results reviewed. Objective - Vital Signs Vital signs: Vital Signs Temp 97.5 F L 06/06/24 04:00 Pulse 98 06/06/24 04:00 Resp 18 06/06/24 04:00 BP 123/76 06/06/24 04:00 Pulse Ox 94 L 06/06/24 04:00 FiO2 Intake & Output 06/05/24 06/06/24 06/06/24 18:59 06:59 18:59 Intake Total 1098 180 Output Total 290 1223 Balance 808 -1223 180 Weight 58.967 kg 63.7 kg Intake: IV 500 Oral 598 180 Output: Chest Tube Drainage 85 23 Chest Tube Mediastinal 85 23 Urine 200 1200 Estimated Blood Loss 5 Other: # Voids 1 1 - Exam CONSTITUTIONAL: Appears comfortable, cooperative, no apparent acute distress. HEENT: Neck is supple, no JVD, no lymphadenopathy. RESPIRATORY: Lungs sounds essentially clear throughout, diminished to his bilateral bases. Respirations are symmetrical and nonlabored. Currently on room air with oxygen saturations 94%. Able to achieve 1250 mL on her incentive spirometry. Strong cough. CARDIOVASCULAR: Regular rhythm and rate. S1 and S2 present, negative for S3, gallop or murmur. No calf pain or tenderness noted. Heart hugger in place with patient demonstrating appropriate use. Knee-high JOHNNY hose and sequential compression devices in place to his bilateral lower extremities. GASTROINTESTINAL: Abdomen soft, nontender, nondistended. Active bowel sounds present 4 quadrants. Tolerating diet. Passing flatus. No guarding or rigidity. GENITOURINARY: Continues to void. Urine output 400 mL in the last 8 hours. INTEGUMENTARY: Skin is warm and dry with no evidence of clubbing or cyanosis. Subxiphoid incision clean dry and well approximated, covered with dry intact dressing. l NEUROLOGIC: Cranial nerves II through XII intact. No focal deficits. MUSKULOSKELETAL: Able to move all extremities, strength equal bilaterally. PSYCHIATRIC: Alert and oriented to person place and time, appropriate affect, intact judgment and insight. INVASIVE LINES AND TUBES: Subxiphoid chest tube present and is to waterseal, no air leaks present. Subxiphoid chest tube with 15 mL of thin serosanguineous drainage overnight, 100 mL output in the last 24 hours. - Allied health notes Allied health notes reviewed: nursing - Labs CBC & Chem 7: 06/06/24 06:42 06/06/24 06:42 Labs: Abnormal Lab Results - Last 24 Hours (Table) 06/04/24 06/05/24 06/05/24 Range/Units 14:58 08:09 12:05 WBC (3.8-10.6) k/uL RBC (3.80-5.40) m/uL Hgb 10.8 L (11.4-16.0) gm/dL Hct (34.0-46.0) % MCHC (31.0-37.0) g/dL Plt Count 458 H (150-450) k/uL Neutrophils # 8.5 H (1.3-7.7) k/uL Sodium (137-145) mmol/L Potassium (3.5-5.1) mmol/L Chloride (98-107) mmol/L Carbon Dioxide (22-30) mmol/L Creatinine (0.52-1.04) mg/dL Glucose (74-99) mg/dL Calcium (8.4-10.2) mg/dL Vitamin B12 1846.0 H (200.0-944.0) pg/mL Fluid Appearance Bloody A (Clear) 06/05/24 06/06/24 06/06/24 Range/Units 12:05 06:42 06:42 WBC 12.9 H (3.8-10.6) k/uL RBC 3.61 L (3.80-5.40) m/uL Hgb 10.0 L (11.4-16.0) gm/dL Hct 32.9 L (34.0-46.0) % MCHC 30.4 L (31.0-37.0) g/dL Plt Count 544 H (150-450) k/uL Neutrophils # (1.3-7.7) k/uL Sodium 133 L 134 L (137-145) mmol/L Potassium 3.4 L (3.5-5.1) mmol/L Chloride 96 L (98-107) mmol/L Carbon Dioxide 32 H 33 H (22-30) mmol/L Creatinine 0.43 L (0.52-1.04) mg/dL Glucose 109 H 108 H (74-99) mg/dL Calcium 7.9 L 8.1 L (8.4-10.2) mg/dL Vitamin B12 (200.0-944.0) pg/mL Fluid Appearance (Clear) Microbiology - Last 24 Hours (Table) 06/05/24 08:09 Gram Stain - Preliminary Pericardial Fluid Body Fluid Culture - Preliminary 06/04/24 12:09 Gram Stain - Preliminary Pleural Fluid Body Fluid Culture - Preliminary 06/03/24 23:20 Urine Culture - Final Urine,Voided - Imaging and Cardiology Chest x-ray: report reviewed, image reviewed Assessment and Plan Assessment: Pericardial effusion, tamponade, status post subxiphoid pericardial window Left pleural effusion, status post successful diagnostic and therapeutic left- sided thoracentesis under ultrasound guidance with 450 mL of fluid drained Acute hypoxic respiratory failure Shortness of breath secondary to above Febrile illness with leukocytosis, lactic acid Hypokalemia Hypomagnesemia Right lower lobe pulmonary nodule, being followed by FADIA Murcia Plan: We will remove her subxiphoid chest tube today. Continue daily chest x-rays. Encourage use of incentive spirometry 10 times every hour while awake. Continue to follow cytology pericardial fluid results. Gram stain shows no organisms seen at this time. Increase activity as tolerated. Medical management other comorbidities per internal medicine and other consultants. More recommendations to follow based on patient's clinical course. Time with Patient: Greater than 30
[2024-06-06] MEDS: METOPROLOL TARTRATE 25 MG TAB PO SCH (09:14)
--- NOTE | 2024-06-06 09:27 | XR ---
EXAMINATION TYPE: XR chest 1V portable DATE OF EXAM: 06/06/2024 HISTORY: Shortness of breath. COMPARISON: 06/05/2024 TECHNIQUE: Single view of the chest is submitted. FINDINGS: Demonstrated are scattered senescent parenchymal change. Left basilar opacity which may reflect a combination of effusion, infiltrate and/or atelectasis. Smal l right effusion suggested as well. The heart is stable. Hilar and mediastinal structures are within normal limits. Degenerative changes are seen of the dorsal spine. IMPRESSION: 1. Left basilar opacity which may reflect a combination of effusion, infiltrate and/or atelectasis. Small right effusion suggested as well. [facility], , 06/06/2024 8:05 AM
--- NOTE | 2024-06-06 11:37 | P.PN ---
Subjective Progress Note Date: 06/06/24 Reason for Consult (text): Chest pain, cardiomegaly, pleural effusion History of present illness: This is a 74-year-old female patient of Dr. Khalil with past medical history of moderate pericardial effusion, coronary artery calcifications, atrial fibr illation on Eliquis, tobacco use and dependence, 60 pound weight loss of 60 pounds. We have been asked to evaluate the patient for chest pain, cardiomegaly, pleural effusion. Patient was seen in the office with Dr. Khalil yesterday and the plan was to check an echocardiogram for pericardial effusion, Lexiscan stress test, albuterol inhaler and patient was advised to go to the emergency center if she has any worsening symptoms. Patient has been having low-grade fevers since early April along with some chest discomfort, shortness of breath. Due to her shortness of breath, she decided to come into the ER yesterday. Patient is seen today in the emergency center waiting for a bed on the cardiac stepdown unit. Blood pressure 131/85, heart rate 105, pulse ox 93% on 2 L nasal cannula. EKG: Sinus tachycardia 105 bpm Chest x-ray: Moderate left pleural effusion and pulmonary vascular congestion. CT chest: Pericardial effusion measuring 3.3 cm. Slow-growing chronic pericardial effusion. Large left pleural effusion. Left lower lobe collapse likely due to compressive changes from left pleural effusion and pericardial effusion. Esophageal dilatation with debris. Right lower lobe pulmonary nodule measuring 14 x 12 mm Chest ultrasound revealed left pleural effusion pocket 7.6 cm Echocardiogram reveals normal LV size and systolic function. Large pericardial effusion noted but no clear-cut evidence of tamponade. Concentric LVH. Laboratory studies: WBC 14 and now 12.6, hemoglobin 10.4. Sodium 135. Initial potassium 2.1 now 3.1. BUN 6 creatinine 0.46, CO2 34, chloride 92. Calcium initially 6 and now 8.3. Magnesium 1.4. Alkaline phosphatase 290. C-reactive protein 17.3. proBNP 631. Procalcitonin 0.42. Heterophile, influenza A, influenza B, RSV, COVID-19, group A strep all not detected. Home cardiac medications: Amiodarone 100 mg daily, Eliquis 5 mg twice daily, Lasix [address] coronary angiography at [facility], report is not available 06/06 Yesterday, patient underwent pericardial window. She is seen today on the cardiac stepdown unit. Telemetry sinus rhythm running in the 80s. Blood pressure 118/61, pulse ox 96% on room air. WBC 16.9, hemoglobin 10. Sodium 134, creatinine 0.6. Physical examination: Gen: This is a 74-year-old female in no acute distress VS: reviewed HEENT: Head is atraumatic, normocephalic. Pupils equal, round. Sclerae is anicteric. NECK: Supple. No JVD. LUNGS: Diminished breath sounds bilaterally. No intercostal retractions. HEART: Regular rate and rhythm. No murmur. ABDOMEN: Soft No tenderness. EXTREMITIES: No pedal edema. No calf tenderness. NEUROLOGICAL: Patient is awake, alert and oriented x3. Assessment: Moderate pericardial effusion status post pericardial window 06/05 Large left pleural effusion status post thoracentesis 06/04 with removal of 450 mL clear chidi fluid Electrolyte abnormalities with hypokalemia, hypomagnesemia, hypocalcemia Paroxysmal atrial fibrillation, currently in sinus rhythm Unexplained weight loss of 60 pounds Tobacco use and dependence, quit last month Coronary artery calcifications Plan: Continue current cardiac medications: Amiodarone 100 mg daily, colchicine 0.6 mg daily, Lopressor 25 mg twice daily with the following changes Resume Eliquis once cleared by CTS Cardiology will sign off this case and follow on an as-needed basis. Please reconsult for any new concerns. Patient may follow-up in the office with Dr. Khalil in one to 2 weeks. Nurse practitioner note has been reviewed, I agree with documented findings and plan of care. Patient was seen and examined. Objective - Vital Signs Vital signs: Vital Signs Temp 97.5 F L 06/06/24 04:00 Pulse 98 06/06/24 04:00 Resp 18 06/06/24 04:00 BP 123/76 06/06/24 04:00 Pulse Ox 94 L 06/06/24 04:00 FiO2 Intake & Output 06/05/24 06/06/24 06/06/24 18:59 06:59 18:59 Intake Total 1098 Output Total 290 1223 Balance 808 -1223 Weight 58.967 kg 63.7 kg Intake: IV 500 Oral 598 Output: Chest Tube Drainage 85 23 Chest Tube Mediastinal 85 23 Urine 200 1200 Estimated Blood Loss 5 Other: # Voids 1 1 - Labs CBC & Chem 7: 06/06/24 06:42 06/06/24 06:42 Labs: Abnormal Lab Results - Last 24 Hours (Table) 06/04/24 06/05/24 06/05/24 Range/Units 14:58 08:09 12:05 WBC (3.8-10.6) k/uL RBC (3.80-5.40) m/uL Hgb 10.8 L (11.4-16.0) gm/dL Hct (34.0-46.0) % MCHC (31.0-37.0) g/dL Plt Count 458 H (150-450) k/uL Neutrophils # 8.5 H (1.3-7.7) k/uL Sodium (137-145) mmol/L Potassium (3.5-5.1) mmol/L Chloride (98-107) mmol/L Carbon Dioxide (22-30) mmol/L Creatinine (0.52-1.04) mg/dL Glucose (74-99) mg/dL Calcium (8.4-10.2) mg/dL Vitamin B12 1846.0 H (200.0-944.0) pg/mL Fluid Appearance Bloody A (Clear) 06/05/24 06/06/24 06/06/24 Range/Units 12:05 06:42 06:42 WBC 12.9 H (3.8-10.6) k/uL RBC 3.61 L (3.80-5.40) m/uL Hgb 10.0 L (11.4-16.0) gm/dL Hct 32.9 L (34.0-46.0) % MCHC 30.4 L (31.0-37.0) g/dL Plt Count 544 H (150-450) k/uL Neutrophils # (1.3-7.7) k/uL Sodium 133 L 134 L (137-145) mmol/L Potassium 3.4 L (3.5-5.1) mmol/L Chloride 96 L (98-107) mmol/L Carbon Dioxide 32 H 33 H (22-30) mmol/L Creatinine 0.43 L (0.52-1.04) mg/dL Glucose 109 H 108 H (74-99) mg/dL Calcium 7.9 L 8.1 L (8.4-10.2) mg/dL Vitamin B12 (200.0-944.0) pg/mL Fluid Appearance (Clear) Microbiology - Last 24 Hours (Table) 06/05/24 08:09 Gram Stain - Preliminary Pericardial Fluid Body Fluid Culture - Preliminary 06/04/24 12:09 Gram Stain - Preliminary Pleural Fluid Body Fluid Culture - Preliminary 06/03/24 23:20 Urine Culture - Final Urine,Voided
--- NOTE | 2024-06-06 14:11 | P.PN ---
Subjective Progress Note Date: 06/06/24 Principal diagnosis: Left pleural effusion and pericardial effusion Patient is a 74-year-old female with past medical history significant for right lower lobe pulmonary nodule, former tobacco dependence, peptic ulcer disease, and atrial fibrillation. Primary care provider is Dr. Osmin Heller. Patient follows with Dr. Rosa, outpatient, in regards to a right lower lobe pulmonary nodule. Does have a significant smoking history, of 44-83-epgn-years, recently quit last month when she started feeling ill. Denies history of diagnosed COPD. Recent PET scan done 04/03/2024, report indicating right lower lung 9 mm pulmonary nodule, with intermediate SUV 2.2. No noted mediastinal lymphadenopathy. Nodule has not been biopsied. She also has recently become established with Dr. Khalil. Noted to be in atrial fibrillation at that time. Currently anticoagulated on Eliquis. Reportedly scheduled outpatient to undergo stress test and echocardiogram. Denies increased lower extremity swelling, heart palpitations, lightheadedness, or syncopal events. Presented to the ED late last night. Chief complaint progressive worsening shortness of breath over the last month. This is associated with nonproductive cough, intermittent fevers, and night sweats. Admits some occasional intermittent substernal chest pain, dull, nonradiating, not associated with activity or rest. Admits generalized weakness and fatigue. No known sick contacts or travel. Chest x-ray done on arrival showing cardiomegaly, mild pulmonary vascular congestion, left-sided pleural effusion, and the patient's known right lower lobe nodule. CBC: WBC count 14, hemoglobin 10.4, hematocrit 32.2, platelets 366. CMP: Sodium 135, potassium 3.1, chloride 104, serum bicarb 26, BUN 6, creatinine 0.38, glucose 95. Calcium 6. Magnesium 1.4. LFTs unremarkable. Troponin less than 0.012. EKG: Sinus tachycardia, rate 105 bpm, generalized low voltage T waves/T wave inversions. Patient states that she was recently placed on Lasix on an outpatient basis. She has been voiding often. Electrolyte imbal ances are being replaced. Otherwise, denies any urinary symptoms such as dysuria or burning, flank pain, hematuria. Urinalysis did show small pyuria and bacteriuria. Negative for influenza, RSV, COVID. Febrile, with a Tmax of 101.6 F. Empirically given a dose of Rocephin in the emergency department. Vital signs are stable. She is currently resting comfortably on 2 L/min nasal cannula. SpO2 is 98%. No acute respiratory distress. Patient was seen today upon the request of the patient and her . Patient wanted to discuss with me the plan from here and what to do on outpatient basis once she is discharged. Although my consultation has been canceled by the admitting physician, I went ahead and saw the patient based on her request and reviewed with the patient and her the events that have transpired in the last couple of days. Patient did have drainage of her pericardial fluid she also had left-sided thoracentesis done, the fluid from the left pleural effusion showed LDH of 173, no protein was noted on the pleural effusion, however her pericardial effusion was noted to be exudative with high LDH and high protein final cytology is pending. May take at least another 5 days before the cytology becomes available. In the meantime the patient is doing well, and I explained to the patient that she could be discharged home and follow-up on outpatient basis with Dr. FADIA Murcia. I also gave her my phone number to call me if she decides to follow-up with me in the next week or 2 weeks postdischarge. Apparently she has an appointment with Dr. FADIA Murcia on Sunday. And I advised her to keep the appointment as is Objective - Vital Signs Vital signs: Vital Signs Temp 98.0 F 06/06/24 08:00 Pulse 84 06/06/24 08:00 Resp 18 06/06/24 08:00 BP 118/61 06/06/24 08:00 Pulse Ox 96 06/06/24 08:00 FiO2 Intake & Output 06/05/24 06/06/24 06/06/24 18:59 06:59 18:59 Intake Total 1098 180 Output Total 290 1223 Balance 808 -1223 180 Weight 58.967 kg 63.7 kg Intake: IV 500 Oral 598 180 Output: Chest Tube Drainage 85 23 Chest Tube Mediastinal 85 23 Urine 200 1200 Estimated Blood Loss 5 Other: # Voids 1 1 - Exam GENERAL EXAM: Alert, 74-year-old white female, comfortable in no apparent distress. On room air HEAD: Normocephalic and atraumatic EYES: Normal reaction of pupils, equal size. NOSE: Clear with pink turbinates. THROAT: No erythema or exudates. NECK: No masses, no JVD. CHEST: No chest wall deformity. LUNGS: Slightly diminished breath sounds and dullness at the left base CVS: S1 and S2 normal with no audible murmur, regular rhythm. No extra heart sounds ABDOMEN: No hepatosplenomegaly, active bowel sounds, no guarding or rigidity. SKIN: No rashes CENTRAL NERVOUS SYSTEM: Alert oriented x 3 no gross focal deficit EXTREMITIES: No clubbing edema or cyanosis - Labs CBC & Chem 7: 06/06/24 06:42 06/06/24 06:42 Labs: Abnormal Lab Results - Last 24 Hours (Table) 06/04/24 06/05/24 06/06/24 Range/Units 14:58 08:09 06:42 WBC 12.9 H (3.8-10.6) k/uL RBC 3.61 L (3.80-5.40) m/uL Hgb 10.0 L (11.4-16.0) gm/dL Hct 32.9 L (34.0-46.0) % MCHC 30.4 L (31.0-37.0) g/dL Plt Count 544 H (150-450) k/uL Sodium (137-145) mmol/L Chloride (98-107) mmol/L Carbon Dioxide (22-30) mmol/L Glucose (74-99) mg/dL Calcium (8.4-10.2) mg/dL Vitamin B12 1846.0 H (200.0-944.0) pg/mL Fluid Appearance Bloody A (Clear) 06/06/24 Range/Units 06:42 WBC (3.8-10.6) k/uL RBC (3.80-5.40) m/uL Hgb (11.4-16.0) gm/dL Hct (34.0-46.0) % MCHC (31.0-37.0) g/dL Plt Count (150-450) k/uL Sodium 134 L (137-145) mmol/L Chloride 96 L (98-107) mmol/L Carbon Dioxide 33 H (22-30) mmol/L Glucose 108 H (74-99) mg/dL Calcium 8.1 L (8.4-10.2) mg/dL Vitamin B12 (200.0-944.0) pg/mL Fluid Appearance (Clear) Microbiology - Last 24 Hours (Table) 06/05/24 08:09 Gram Stain - Preliminary Pericardial Fluid Body Fluid Culture - Preliminary 06/04/24 12:09 Gram Stain - Preliminary Pleural Fluid Body Fluid Culture - Preliminary 06/03/24 23:20 Urine Culture - Final Urine,Voided Assessment and Plan Assessment: Impression: Acute hypoxemic respiratory failure; left pleural effusion and pericardial effusion status post thoracentesis and pericardial window New left pleural effusion Right lower lobe pulmonary nodule, follows with a different [employer] [facility] on an outpatient basis, Dr. Rosa Acute febrile illness Acute leukocytosis History of atrial fibrillation, anticoagulated on Eliquis, currently in normal sinus rhythm. Reportedly relatively new finding, following with cardiology Multiple electrolyte abnormalities including severe hypokalemia, hypomagnesemia, hypocalcemia; being replaced per protocol. On loop diuretics outpatient Normocytic normochromic anemia, no overt signs of blood loss Possible UTI History of peptic ulcer disease Legally blind Former tobacco dependence, with 67-89-wlfu-year history Recommendation: Continue present supportive care measures Await cytology report from the pericardial effusion fluid and from the pleural effusion fluid Could consider discharging the patient home if cleared by other consultants Patient to follow-up with Dr. FADIA Murcia regarding her lung nodule and regarding her pleural effusion Depending on the cytology report of the pleural effusion, further recommendations will follow but the patient does not need to be kept in the hospital all this time until results of cytology becomes available. Time with Patient: Less than 30
--- NOTE | 2024-06-06 14:20 | P.PN ---
Subjective Progress Note Date: 06/06/24 Hospital Course: 74-year-old female with a PMH of A-fib on Eliquis, peptic ulcer disease, GERD, tobacco abuse who presents to the emergency room with complaints of persistent fever and cough. Patient had recently undergone a low-dose lung CT which had revealed a 1.1 cm right lower lobe spiculated mass with subsequent PET scan on 04/03/2020, revealed that the right lower lobe lung pulmonary nodule had somewhat decreased to 9 mm with findings concerning for granulomatous change versus malignancy with surveillance recommended. There was no evidence of mediastinal lymphadenopathy. n the emergency room a chest x-ray revealed findings of moderate left-sided pleural effusion with pulmonary vascular congestion with EKG showing sinus tach cardia at 105 bpm with diffuse T wave flattening as reviewed by me. Laboratory evaluation was remarkable for leukocytosis of 14.0 with hemoglobin 10.4, sodium 137, creatinine 2.1, lactic acid 2.2, calcium 6.9, magnesium 1.4, alk phos 193, CRP 17.3 with albumin 2.1 with UA abnormal and respiratory infectious panel negative. He had chest CT that showed pericardial effusion, large left pleural effusion, left lower lobe collapse due to compression, esophageal dilatation, right lower lobe pulmonary nodule. Pulmonology was consulted. Underwent thoracentesis. Oncology and cardiology also consulted. Echocardiogram showed LVEF 55 to 60%, large pericardial effusion with no clear-cut evidence of tamponade. Cardiothoracic surgery was consulted. Patient underwent pericardial window. Subjective: Patient seen and examined at bedside. No acute events overnight. Chest drain removed today Pertinent positives and negatives as discussed above, a complete review of systems was performed and all other systems are negative. Vitals Signs Reviewed. General: Nontoxic, no distress, appears at stated age Derm: Warm, dry, dressing clean, dry, intact, Head: Atraumatic, normocephalic, symmetric Eyes: EOMI, no lid lag, anicteric sclera Mouth: No lip lesion, mucus membranes moist Cardiovascular: S1S2 reg, no murmur Lungs: CTA bilateral, no rhonchi, no rales, no accessory muscle use Abdominal: Soft, nontender to palpation, no guarding, no appreciable organomegaly Ext: No gross muscle atrophy, no edema, no contractures Neuro: CN II-XI grossly intact, no focal neuro deficits Psych: Alert, oriented, appropriate affect Data Reviewed Today: Pertinent Labs: WBC 12.9, hemoglobin 10, platelet 554, sodium 133, bicarb 33, creatinine 0.6, AMNA titer 1:2560 Imaging: Chest x-ray independently interpreted, shows improvement in left pleural effusion as well as cardiac silhouette slightly reduced. Assessment and Plan: Active: Left pleural effusion s/p thoracentesis Left pericardial effusion status post pericardial window Hypoxic respiratory failure secondary to above solved Pulmonary nodule Hypokalemia, resolved Hypervolemic hyponatremia, resolved Possible complicated bacterial pneumonia with parapneumonic effusion -Cardiothoracic surgery note reviewed, removed chest tube -Patient continued on colchicine 0.6 daily -Cultures and cytology pending -Concern for infectious versus malignancy versus autoimmune process -Patient does have a high AMNA titer with a homogenous AMNA pattern, further autoimmune workup pending -ID following, patient continued on vancomycin, cefepime 2 g IV every 8 hours, monitor for renal toxicity with vancomycin -Oncology also following, cytology pending -Repeat BMP and magnesium tomorrow Iron deficiency anemia -Avoid IV iron in case this is infectious cause of pleural effusion Atrial fibrillation, rate controlled -Continue amiodarone 100 mg daily, holding anticoagulation, resume when cleared by thoracic surgery -Cardiology signed off GERD -Continue pantoprazole 40 mg daily DVT ppx: SCD Code status: Full code Anticipated discharge place: Pending clinical course Anticipated discharge time: Pending clinical course Objective - Vital Signs Vital signs: Vital Signs Temp 98.0 F 06/06/24 08:00 Pulse 84 06/06/24 08:00 Resp 18 06/06/24 08:00 BP 118/61 06/06/24 08:00 Pulse Ox 96 06/06/24 08:00 FiO2 Intake & Output 06/05/24 06/06/24 06/06/24 18:59 06:59 18:59 Intake Total 1098 180 Output Total 290 1223 Balance 808 -1223 180 Weight 58.967 kg 63.7 kg Intake: IV 500 Oral 598 180 Output: Chest Tube Drainage 85 23 Chest Tube Mediastinal 85 23 Urine 200 1200 Estimated Blood Loss 5 Other: # Voids 1 1 - Labs CBC & Chem 7: 06/06/24 06:42 06/06/24 06:42 Labs: Abnormal Lab Results - Last 24 Hours (Table) 06/04/24 06/05/24 06/06/24 Range/Units 14:58 08:09 06:42 WBC 12.9 H (3.8-10.6) k/uL RBC 3.61 L (3.80-5.40) m/uL Hgb 10.0 L (11.4-16.0) gm/dL Hct 32.9 L (34.0-46.0) % MCHC 30.4 L (31.0-37.0) g/dL Plt Count 544 H (150-450) k/uL Sodium (137-145) mmol/L Chloride (98-107) mmol/L Carbon Dioxide (22-30) mmol/L Glucose (74-99) mg/dL Calcium (8.4-10.2) mg/dL Vitamin B12 1846.0 H (200.0-944.0) pg/mL Fluid Appearance Bloody A (Clear) 06/06/24 Range/Units 06:42 WBC (3.8-10.6) k/uL RBC (3.80-5.40) m/uL Hgb (11.4-16.0) gm/dL Hct (34.0-46.0) % MCHC (31.0-37.0) g/dL Plt Count (150-450) k/uL Sodium 134 L (137-145) mmol/L Chloride 96 L (98-107) mmol/L Carbon Dioxide 33 H (22-30) mmol/L Glucose 108 H (74-99) mg/dL Calcium 8.1 L (8.4-10.2) mg/dL Vitamin B12 (200.0-944.0) pg/mL Fluid Appearance (Clear) Microbiology - Last 24 Hours (Table) 06/05/24 08:09 Gram Stain - Preliminary Pericardial Fluid Body Fluid Culture - Preliminary 06/04/24 12:09 Gram Stain - Preliminary Pleural Fluid Body Fluid Culture - Preliminary 06/03/24 23:20 Urine Culture - Final Urine,Voided
--- NOTE | 2024-06-06 16:31 | P.PN ---
Subjective Progress Note Date: 06/06/24 No acute events. S/p thoracentesis and pericardial window. Path pending. Reports improvement in pain and SOB Objective - Vital Signs Vital signs: Vital Signs Temp 98.0 F 06/06/24 08:00 Pulse 84 06/06/24 08:00 Resp 18 06/06/24 08:00 BP 118/61 06/06/24 08:00 Pulse Ox 96 06/06/24 08:00 FiO2 Intake & Output 06/05/24 06/06/24 06/06/24 18:59 06:59 18:59 Intake Total 1098 180 Output Total 290 1223 Balance 808 -1223 180 Weight 58.967 kg 63.7 kg Intake: IV 500 Oral 598 180 Output: Chest Tube Drainage 85 23 Chest Tube Mediastinal 85 23 Urine 200 1200 Estimated Blood Loss 5 Other: # Voids 1 1 - Constitutional General appearance: Present: no acute distress - EENT Eyes: Present: anicteric sclerae, EOMI ENT: Present: hearing grossly normal - Respiratory Details: breathing is even and unlabored - Cardiovascular Details: skin warm and dry - Gastrointestinal General gastrointestinal: Present: soft. Absent: tenderness - Integumentary Integumentary: Absent: cyanotic, jaundiced - Musculoskeletal Musculoskeletal: Present: strength equal bilaterally - Psychiatric Psychiatric: Present: A&O x's 3 - Labs CBC & Chem 7: 06/06/24 06:42 06/06/24 06:42 Labs: Abnormal Lab Results - Last 24 Hours (Table) 06/04/24 06/05/24 06/06/24 Range/Units 14:58 08:09 06:42 WBC 12.9 H (3.8-10.6) k/uL RBC 3.61 L (3.80-5.40) m/uL Hgb 10.0 L (11.4-16.0) gm/dL Hct 32.9 L (34.0-46.0) % MCHC 30.4 L (31.0-37.0) g/dL Plt Count 544 H (150-450) k/uL Sodium (137-145) mmol/L Chloride (98-107) mmol/L Carbon Dioxide (22-30) mmol/L Glucose (74-99) mg/dL Calcium (8.4-10.2) mg/dL Vitamin B12 1846.0 H (200.0-944.0) pg/mL Fluid Appearance Bloody A (Clear) 06/06/24 Range/Units 06:42 WBC (3.8-10.6) k/uL RBC (3.80-5.40) m/uL Hgb (11.4-16.0) gm/dL Hct (34.0-46.0) % MCHC (31.0-37.0) g/dL Plt Count (150-450) k/uL Sodium 134 L (137-145) mmol/L Chloride 96 L (98-107) mmol/L Carbon Dioxide 33 H (22-30) mmol/L Glucose 108 H (74-99) mg/dL Calcium 8.1 L (8.4-10.2) mg/dL Vitamin B12 (200.0-944.0) pg/mL Fluid Appearance (Clear) Microbiology - Last 24 Hours (Table) 06/05/24 08:09 Gram Stain - Preliminary Pericardial Fluid Body Fluid Culture - Preliminary 06/04/24 12:09 Gram Stain - Preliminary Pleural Fluid Body Fluid Culture - Preliminary 06/03/24 23:20 Urine Culture - Final Urine,Voided Assessment and Plan (1) Chest pain Current Visit: Yes Status: Acute Code(s): R07.9 - CHEST PAIN, UNSPECIFIED SNOMED Code(s): 08415608 (2) FUO (fever of unknown origin) Current Visit: Yes Status: Acute Priority: High Code(s): R50.9 - FEVER, UNSPECIFIED SNOMED Code(s): 2611531 (3) Lung mass Current Visit: Yes Status: Acute Priority: Medium Code(s): R91.8 - OTHER NONSPECIFIC ABNORMAL FINDING OF LUNG FIELD SNOMED Code(s): 350713755 (4) Pericardial effusion Current Visit: Yes Status: Acute Code(s): I31.39 - OTHER PERICARDIAL EFFUSION (NONINFLAMMATORY) SNOMED Code(s): 268843576 (5) Pleural effusion Current Visit: Yes Status: Acute Priority: High Code(s): J90 - PLEURAL EFFUSION, NOT ELSEWHERE CLASSIFIED SNOMED Code(s): 57489595 Plan: Fever of unknown origin -Pancultures ordered, workup negative thus far -Empiric antibiotics have been initiated -Infectious disease following Pericardial effusion, pleural effusion -Unknown cause for both. Inflammatory workup ordered. -It was discussed with patient and her potential causes for fluid accumulation around the heart as well as the lung. Unfortunately, malignancy is in the differential. -Case discussed with cardiothoracic surgery [employer]. S/p pericardiocentesis and thoracentesis, cytology pending Right lower lobe lung nodule. -Found initially on low dose CT chest in February 2024. PET in Mar reported it to be a bit smaller, possible granulomatous dz vs malignancy -Follows with Pulmonary. Further recommendations from an Oncology standpoint based on cytology. Doctor attests: I performed a history and physical examination of this patient, developed impression and plan of care. Discussed with dictator. I agree with dictators note, documented as a scribe.
[2024-06-07 05:00] VITALS: TEMP 98.2
[2024-06-07 05:22] LABS: DNA Double-Stranded Negative (Negative)
[2024-06-07 06:48] LABS: Basophils % (A) 0 %; Eosinophils # (A) 0.2 k/uL (0-0.7); Eosinophils % (A) 2 %; HCT 37.6 % (34.0-46.0); HGB 11.2 gm/dL (11.4-16.0); Hypochromasia Marked; Lymphocytes # (A) 1.9 k/uL (1.0-4.8); Lymphocytes % (A) 16 %; MCH 27.4 pg (25.0-35.0); MCHC 29.9 g/dL (31.0-37.0); MCV 91.6 fL (80.0-100.0); Mean Platelet Volume 8.1; Monocytes # (A) 0.5 k/uL (0-1.0); Monocytes % (A) 5 %; Neutrophils # (A) 8.9 k/uL (1.3-7.7); Neutrophils % (A) 76 %; Platelet Count 604 k/uL (150-450); RDW 14.2 % (11.5-15.5); WBC 11.8 k/uL (3.8-10.6)
[2024-06-07 06:55] LABS: African American GFR (CKD) >90 (>60 ml/min/1.73 sqM); Anion Gap 4 mmol/L; Blood Urea Nitrogen 10 mg/dL (7-17); Calcium 8.5 mg/dL (8.4-10.2); Carbon Dioxide 34 mmol/L (22-30); Chloride 97 mmol/L (98-107); Glucose 97 mg/dL (74-99); Magnesium 1.9 mg/dL (1.6-2.3); Non-African American GFR(CKD) >90 (>60 ml/min/1.73 sqM); Potassium 3.8 mmol/L (3.5-5.1); Sodium 135 mmol/L (137-145)
--- NOTE | 2024-06-07 07:29 | XR ---
EXAMINATION TYPE: XR chest 1V portable DATE OF EXAM: 06/07/2024 5:41 AM CLINICAL INDICATION: Female, 74 years old with history of Status post pericardial window; [facility] COMPARISON: Chest radiographs from 06/06/2024 TECHNIQUE: XR chest 1V portable Frontal view of the chest. FINDINGS: Lungs/Pleura: No evidence of focal consolidation or pneumothorax. Blunting of the costophrenic angles is present. Pulmonary vascularity: Unremarkable. Heart/mediastinum: Cardiomediastinal silhouette is enlarged. Musculoskeletal: No acute osseous pathology. Other findings: None IMPRESSION: Posttreatment changes with small bilateral pleural effusions and cardiomegaly. [facility], , 06/07/2024 7:27 AM
--- NOTE | 2024-06-07 08:14 | P.PN ---
Subjective Progress Note Date: 06/07/24 Principal diagnosis: Pericardial effusion, tamponade. Past medical history significant for recent diagnosis of atrial fibrillation on [facility] outpatient for anticoagulation although states she is only taking it once a day, COVID in 2022, GERD, previous tobacco dependence with recent cessation. POD #2 Subxiphoid pericardial window. The patient was seen and examined in follow-up today June 07, 2024 at her bedside on the third floor cardiac stepdown unit. She is currently sitting up to the bedside chair, is awake, alert, oriented x 3 and is in no acute apparent distress. She is tolerating her breakfast without complaints of nausea. She denies any complaints of shortness of breath at this time, although continues to complain of some surgical type pain, currently rating her pain 4 out of 10 on the pain scale. She reports she has been up ambulating in her room without difficulty. She remains hemodynamically stable and is currently on no inotropic or pressor support. She has antibiotics infusing at this time cefepime 2 g IV piggyback. Pericardial Gram stain shows no organisms seen and cultures and cytology report remain pending. Chest x-ray and laboratory results reviewed. Objective - Vital Signs Vital signs: Vital Signs Temp 98.2 F 06/07/24 04:54 Pulse 92 06/07/24 04:54 Resp 20 06/07/24 04:54 BP 131/77 06/07/24 04:54 Pulse Ox 94 L 06/07/24 04:54 FiO2 Intake & Output 06/06/24 06/07/24 06/07/24 18:59 06:59 18:59 Intake Total 298 240 118 Balance 298 240 118 Weight 64.3 kg Intake: Oral 298 240 118 Other: # Voids 2 1 - Exam CONSTITUTIONAL: Appears comfortable, cooperative, no apparent acute distress. HEENT: Neck is supple, no JVD, no lymphadenopathy. RESPIRATORY: Lungs sounds essentially clear throughout, diminished to his bilateral bases. Respirations are symmetrical and nonlabored. Currently on room air with oxygen saturations 94%. Able to achieve 1250 mL on her incentive spirometry. Strong cough. CARDIOVASCULAR: Regular rhythm and rate. S1 and S2 present, negative for S3, gallop or murmur. No calf pain or tenderness noted. Heart hugger in place with patient demonstrating appropriate use. Knee-high JOHNNY hose and sequential compression devices in place to his bilateral lower extremities. GASTROINTESTINAL: Abdomen soft, nontender, nondistended. Active bowel sounds present 4 quadrants. Tolerating diet. Passing flatus. No guarding or rigidity. GENITOURINARY: Continues to void. INTEGUMENTARY: Skin is warm and dry with no evidence of clubbing or cyanosis. Subxiphoid incision clean dry and well approximated, covered with dry intact dressing. l NEUROLOGIC: Cranial nerves II through XII intact. No focal deficits. MUSKULOSKELETAL: Able to move all extremities, strength equal bilaterally. PSYCHIATRIC: Alert and oriented to person place and time, appropriate affect, intact judgment and insight. - Allied health notes Allied health notes reviewed: nursing - Labs CBC & Chem 7: 06/07/24 05:33 06/07/24 05:33 Labs: Abnormal Lab Results - Last 24 Hours (Table) 06/06/24 06/07/24 06/07/24 Range/Units 06:42 05:33 05:33 WBC 11.8 H (3.8-10.6) k/uL Hgb 11.2 L (11.4-16.0) gm/dL MCHC 29.9 L (31.0-37.0) g/dL Plt Count 604 H (150-450) k/uL Neutrophils # 8.9 H (1.3-7.7) k/uL Sodium 134 L 135 L (137-145) mmol/L Chloride 96 L 97 L (98-107) mmol/L Carbon Dioxide 33 H 34 H (22-30) mmol/L Glucose 108 H (74-99) mg/dL Calcium 8.1 L (8.4-10.2) mg/dL Microbiology - Last 24 Hours (Table) 06/05/24 08:09 Gram Stain - Preliminary Pericardial Fluid Body Fluid Culture - Preliminary 06/04/24 12:09 Anaerobic Culture - Preliminary Pleural Fluid 06/05/24 08:09 Acid Fast Bacilli Smear - Preliminary Pericardial Fluid 06/05/24 12:25 Nasal Screen MRSA/MSSA - Final Nasal Swab 06/04/24 12:09 Gram Stain - Preliminary Pleural Fluid Body Fluid Culture - Preliminary - Imaging and Cardiology Chest x-ray: report reviewed, image reviewed Assessment and Plan Assessment: Pericardial effusion, tamponade, status post subxiphoid pericardial window Left pleural effusion, status post successful diagnostic and therapeutic left- sided thoracentesis under ultrasound guidance with 450 mL of fluid drained Acute hypoxic respiratory failure Shortness of breath secondary to above Febrile illness with leukocytosis, lactic acid Hypokalemia Hypomagnesemia Right lower lobe pulmonary nodule, being followed by FADIA Murcia Plan: Encourage use of incentive spirometry 10 times every hour while awake. Continue to follow cytology pericardial fluid results. Gram stain shows no organisms seen at this time. Increase activity as tolerated. Ambulate as tolerated. May shower daily. Medical management other comorbidities per internal medicine and other consultants. We will continue to follow the patient on an as-needed basis, please reconsult for any further concerns regarding pericardial effusion. Time with Patient: Less than 30
[2024-06-07] MEDS: VANCOMYCIN TROUGH DUE 1 EACH MISC MISCELLANE ONE (08:19)
[2024-06-07 08:28] VITALS: BP 118/69; PULSE 96; RESP 16
--- NOTE | 2024-06-07 09:44 | P.PN ---
Subjective Progress Note Date: 06/06/24 Principal diagnosis: Reason for follow-up is fever infusion/pneumonia Patient is a 74-year-old female with a past medical his significant for atrial fibrillation reflux pneumonia previous history of smoking presenting to the hospital for evaluation of increasing shortness of breath that apparently has been getting worse over the last 1 month patient did have evidence of left pleural effusion status post thoracocentesis no evidence of pericardial effusion in this patient who is status post pericardial window by CT surgery this morning. On today's evaluation that is 06/06/2024,the patient remains to be afebrile, patient is on room air not requiring supplemental oxygen and denies any shortness of breath no chest pain cough or decrease in intensity, patient denies having any nausea or vomiting, no abdominal pain and no diarrhea has been reported. Patient white count is 12.9 creatinine 0.60 cultures are currently pending Objective - Vital Signs Vital signs: Vital Signs Temp 98.0 F 06/06/24 08:00 Pulse 84 06/06/24 08:00 Resp 18 06/06/24 08:00 BP 118/61 06/06/24 08:00 Pulse Ox 96 06/06/24 08:00 FiO2 Intake & Output 06/05/24 06/06/24 06/06/24 18:59 06:59 18:59 Intake Total 1098 180 Output Total 290 1223 Balance 808 -1223 180 Weight 58.967 kg 63.7 kg Intake: IV 500 Oral 598 180 Output: Chest Tube Drainage 85 23 Chest Tube Mediastinal 85 23 Urine 200 1200 Estimated Blood Loss 5 Other: # Voids 1 1 - Exam GENERAL DESCRIPTION: An elderly female lying in bed in no distress RESPIRATORY SYSTEM: Unlabored breathing , decreased breath sounds at bases HEART: S1 S2 regular rate and rhythm , ABDOMEN: Soft , no tenderness EXTREMITIES: No edema feet - Labs CBC & Chem 7: 06/07/24 05:33 06/07/24 05:33 Labs: Abnormal Lab Results - Last 24 Hours (Table) 06/04/24 06/05/24 06/06/24 Range/Units 14:58 08:09 06:42 WBC 12.9 H (3.8-10.6) k/uL RBC 3.61 L (3.80-5.40) m/uL Hgb 10.0 L (11.4-16.0) gm/dL Hct 32.9 L (34.0-46.0) % MCHC 30.4 L (31.0-37.0) g/dL Plt Count 544 H (150-450) k/uL Sodium (137-145) mmol/L Chloride (98-107) mmol/L Carbon Dioxide (22-30) mmol/L Glucose (74-99) mg/dL Calcium (8.4-10.2) mg/dL Vitamin B12 1846.0 H (200.0-944.0) pg/mL Fluid Appearance Bloody A (Clear) 06/06/24 Range/Units 06:42 WBC (3.8-10.6) k/uL RBC (3.80-5.40) m/uL Hgb (11.4-16.0) gm/dL Hct (34.0-46.0) % MCHC (31.0-37.0) g/dL Plt Count (150-450) k/uL Sodium 134 L (137-145) mmol/L Chloride 96 L (98-107) mmol/L Carbon Dioxide 33 H (22-30) mmol/L Glucose 108 H (74-99) mg/dL Calcium 8.1 L (8.4-10.2) mg/dL Vitamin B12 (200.0-944.0) pg/mL Fluid Appearance (Clear) Microbiology - Last 24 Hours (Table) 06/05/24 08:09 Gram Stain - Preliminary Pericardial Fluid Body Fluid Culture - Preliminary 06/04/24 12:09 Gram Stain - Preliminary Pleural Fluid Body Fluid Culture - Preliminary 06/03/24 23:20 Urine Culture - Final Urine,Voided Assessment and Plan (1) Sepsis Current Visit: Yes Status: Acute Code(s): A41.9 - SEPSIS, UNSPECIFIED ORGANISM SNOMED Code(s): 13038312 (2) Pneumonia Current Visit: Yes Status: Acute Code(s): J18.9 - PNEUMONIA, UNSPECIFIED ORGANISM SNOMED Code(s): 510689998 Plan: 1patient presenting to the hospital with sepsis in this patient who did have fever elevated white count source likely pneumonia with a question of possible empyema as the patient did have significant effusion and has failed outpatient oral antibiotic therapy 2pleural fluid cultures currently pending 3-patient did have resolution of fever white count is slightly up we will monitor closely and continue cefepime and vancomycin while waiting for the cultures to be completed Dictation was produced using [employer] dictation software. please excuse any grammatical, word or spelling errors. Time with Patient: Less than 30
--- NOTE | 2024-06-07 12:53 | P.PN ---
Subjective Progress Note Date: 06/07/24 Principal diagnosis: Left pleural effusion and pericardial effusion Patient is a 74-year-old female with past medical history significant for right lower lobe pulmonary nodule, former tobacco dependence, peptic ulcer disease, and atrial fibrillation. Primary care provider is Dr. Osmin Heller. Patient follows with Dr. Rosa, outpatient, in regards to a right lower lobe pulmonary nodule. Does have a significant smoking history, of 75-27-qwmi-years, recently quit last month when she started feeling ill. Denies history of diagnosed COPD. Recent PET scan done 04/03/2024, report indicating right lower lung 9 mm pulmonary nodule, with intermediate SUV 2.2. No noted mediastinal lymphadenopathy. Nodule has not been biopsied. She also has recently become established with Dr. Khalil. Noted to be in atrial fibrillation at that time. Currently anticoagulated on Eliquis. Reportedly scheduled outpatient to undergo stress test and echocardiogram. Denies increased lower extremity swelling, heart palpitations, lightheadedness, or syncopal events. Presented to the ED late last night. Chief complaint progressive worsening shortness of breath over the last month. This is associated with nonproductive cough, intermittent fevers, and night sweats. Admits some occasional intermittent substernal chest pain, dull, nonradiating, not associated with activity or rest. Admits generalized weakness and fatigue. No known sick contacts or travel. Chest x-ray done on arrival showing cardiomegaly, mild pulmonary vascular congestion, left-sided pleural effusion, and the patient's known right lower lobe nodule. CBC: WBC count 14, hemoglobin 10.4, hematocrit 32.2, platelets 366. CMP: Sodium 135, potassium 3.1, chloride 104, serum bicarb 26, BUN 6, creatinine 0.38, glucose 95. Calcium 6. Magnesium 1.4. LFTs unremarkable. Troponin less than 0.012. EKG: Sinus tachycardia, rate 105 bpm, generalized low voltage T waves/T wave inversions. Patient states that she was recently placed on Lasix on an outpatient basis. She has been voiding often. Electrolyte imbal ances are being replaced. Otherwise, denies any urinary symptoms such as dysuria or burning, flank pain, hematuria. Urinalysis did show small pyuria and bacteriuria. Negative for influenza, RSV, COVID. Febrile, with a Tmax of 101.6 F. Empirically given a dose of Rocephin in the emergency department. Vital signs are stable. She is currently resting comfortably on 2 L/min nasal cannula. SpO2 is 98%. No acute respiratory distress. Patient was seen today upon the request of the patient and her . Patient wanted to discuss with me the plan from here and what to do on outpatient basis once she is discharged. Although my consultation has been canceled by the admitting physician, I went ahead and saw the patient based on her request and reviewed with the patient and her the events that have transpired in the last couple of days. Patient did have drainage of her pericardial fluid she also had left-sided thoracentesis done, the fluid from the left pleural effusion showed LDH of 173, no protein was noted on the pleural effusion, however her pericardial effusion was noted to be exudative with high LDH and high protein final cytology is pending. May take at least another 5 days before the cytology becomes available. In the meantime the patient is doing well, and I explained to the patient that she could be discharged home and follow-up on outpatient basis with Dr. FADIA Murcia. I also gave her my phone number to call me if she decides to follow-up with me in the next week or 2 weeks postdischarge. Apparently she has an appointment with Dr. FADIA Murcia on Sunday. And I advised her to keep the appointment as is Patient was evaluated today on 06/07/2024, patient seems to be doing fairly well, not in any distress, cytology from the pleural effusion and from the pericardial effusion is pending, reviewed the basic report on the pericardial effusion that seems to be exudative in nature, reviewed the labs on her pleural effusion seems to be transudative in nature patient is doing well overall, remains on antibiotics she was found to have positive AMNA, and negative rheumatoid factor. Procalcitonin was within normal range. Again cytology is pending. Objective - Vital Signs Vital signs: Vital Signs Temp 98.2 F 06/07/24 04:54 Pulse 96 06/07/24 08:00 Resp 16 06/07/24 08:00 BP 118/69 06/07/24 08:00 Pulse Ox 95 06/07/24 08:00 FiO2 Intake & Output 06/06/24 06/07/24 06/07/24 18:59 06:59 18:59 Intake Total 298 240 118 Balance 298 240 118 Weight 64.3 kg Intake: Oral 298 240 118 Other: # Voids 2 1 - Exam GENERAL EXAM: Alert, 74-year-old white female, comfortable in no apparent distress. On room air HEAD: Normocephalic and atraumatic EYES: Normal reaction of pupils, equal size. NOSE: Clear with pink turbinates. THROAT: No erythema or exudates. NECK: No masses, no JVD. CHEST: No chest wall deformity. LUNGS: Slightly diminished breath sounds and dullness at the left base CVS: S1 and S2 normal with no audible murmur, regular rhythm. No extra heart sounds ABDOMEN: No hepatosplenomegaly, active bowel sounds, no guarding or rigidity. SKIN: No rashes CENTRAL NERVOUS SYSTEM: Alert oriented x 3 no gross focal deficit EXTREMITIES: No clubbing edema or cyanosis - Labs CBC & Chem 7: 06/07/24 05:33 06/07/24 05:33 Labs: Abnormal Lab Results - Last 24 Hours (Table) 06/07/24 06/07/24 Range/Units 05:33 05:33 WBC 11.8 H (3.8-10.6) k/uL Hgb 11.2 L (11.4-16.0) gm/dL MCHC 29.9 L (31.0-37.0) g/dL Plt Count 604 H (150-450) k/uL Neutrophils # 8.9 H (1.3-7.7) k/uL Sodium 135 L (137-145) mmol/L Chloride 97 L (98-107) mmol/L Carbon Dioxide 34 H (22-30) mmol/L Microbiology - Last 24 Hours (Table) 06/05/24 08:09 Anaerobic Culture - Preliminary Pericardial Fluid 06/03/24 23:05 Blood Culture - Preliminary Blood 06/05/24 08:09 Gram Stain - Preliminary Pericardial Fluid Body Fluid Culture - Preliminary 06/04/24 12:09 Anaerobic Culture - Preliminary Pleural Fluid 06/05/24 08:09 Acid Fast Bacilli Smear - Preliminary Pericardial Fluid 06/05/24 12:25 Nasal Screen MRSA/MSSA - Final Nasal Swab 06/04/24 12:09 Gram Stain - Preliminary Pleural Fluid Body Fluid Culture - Preliminary Assessment and Plan Assessment: Impression: Acute hypoxemic respiratory failure; left pleural effusion and pericardial effusion status post thoracentesis and pericardial window, fluid is exudative in nature New left pleural effusion, seems to be transudative in nature Right lower lobe pulmonary nodule, follows with a different hand nailer group on an outpatient basis, Dr. Rosa Acute febrile illness Acute leukocytosis History of atrial fibrillation, anticoagulated on Eliquis, currently in normal sinus rhythm. Reportedly relatively new finding, following with cardiology Multiple electrolyte abnormalities including severe hypokalemia, hypomagnesemia, hypocalcemia; being replaced per protocol. On loop diuretics outpatient Normocytic normochromic anemia, no overt signs of blood loss Possible UTI History of peptic ulcer disease Legally blind Former tobacco dependence, with 48-64-njej-year history Recommendation: Continue present supportive care measures Await cytology report from the pericardial effusion fluid and from the pleural effusion fluid Could consider discharging the patient home if cleared by other consultants Patient to see me on outpatient basis if discharged, apparently she has no plans now to go back and see Dr. FADIA Murcia I will see the patient in the office within the next 1 to 2 weeks Time with Patient: Less than 30
--- NOTE | 2024-06-07 13:28 | P.DS ---
Providers Date of admission: 06/04/24 01:14 Expected date of discharge: 06/07/24 Attending physician: Rossy Griffin MD Consults: 06/04/24 00:17 Consult Physician Urgent Consulting Provider: Desi Castanon Consult Reason/Comments: lung mass Do you want consulting provider notified?: Yes 06/04/24 00:18 Consult Physician Urgent Consulting Provider: Deep Khalil Consult Reason/Comments: Chest pain, cardiomegaly, pleural effusion Do you want consulting provider notified?: Yes 06/04/24 03:42 Consult Physician Urgent Consulting Provider: Briseida Castillo Consult Reason/Comments: SIRS Do you want consulting provider notified?: Yes 06/04/24 07:54 Consult Physician Routine Consulting Provider: Oscar Wynn Consult Reason/Comments: Pericardial eff, cytology please Do you want consulting provider notified?: Yes Primary care physician: Osmin Heller Hospital Course: Discharge Diagnosis: Left pleural effusion s/p thoracentesis Left pericardial effusion status post pericardial window Hypoxic respiratory failure secondary to above solved Pulmonary nodule Hypokalemia Hypervolemic hyponatremia Possible complicated bacterial pneumonia Iron deficiency anemia Atrial fibrillation, rate controlled GERD Hospital Course: 74-year-old female with a PMH of A-fib on Eliquis, peptic ulcer disease, GERD, tobacco abuse who presents to the emergency room with complaints of persistent fever and cough. Patient had recently undergone a low-dose lung CT which had revealed a 1.1 cm right lower lobe spiculated mass with subsequent PET scan on 04/03/2020, revealed that the right lower lobe lung pulmonary nodule had somewhat decreased to 9 mm with findings concerning for granulomatous change versus malignancy with surveillance recommended. There was no evidence of mediastinal lymphadenopathy. n the emergency room a chest x-ray revealed findings of moderate left-sided pleural effusion with pulmonary vascular congestion with EKG showing sinus tach cardia at 105 bpm with diffuse T wave flattening as reviewed by me. Laboratory evaluation was remarkable for leukocytosis of 14.0 with hemoglobin 10.4, sodium 137, creatinine 2.1, lactic acid 2.2, calcium 6.9, magnesium 1.4, alk phos 193, CRP 17.3 with albumin 2.1 with UA abnormal and respiratory infectious panel negative. He had chest CT that showed pericardial effusion, large left pleural effusion, left lower lobe collapse due to compression, esophageal dilatation, right lower lobe pulmonary nodule. Pulmonology was consulted. Underwent thoracentesis. Oncology and cardiology also consulted. Echocardiogram showed LVEF 55 to 60%, large pericardial effusion with no clear-cut evidence of tamponade. Cardiothoracic surgery was consulted. Patient underwent pericardial window. Cytology still pending. ID was consulted for possible infectious cause of effusions. Patient was initially on vancomycin and cefepime. Autoimmune workup did show high AMNA titer, rest of the autoimmune workup was otherwise negative. Possibility for effusion could be inflammatory versus infectious versus malignancy. Patient is now on room air, being discharged on oral antibiotics. Follow-up closely with her respiratory coordinator, cardiothoracic surgery, oncology and PCP. Cultures have been negative for 48 hours. Patient seen and examined at bedside. Vital signs reviewed and stable. General: Nontoxic, no distress, appears at stated age Derm: Warm, dry Head: Atraumatic, normocephalic, symmetric Eyes: EOMI, no lid lag, anicteric sclera Mouth: No lip lesion, mucus membranes moist Cardiovascular: S1S2 reg, no murmur Lungs: CTA bilateral, no rhonchi, no rales, no accessory muscle use Abdominal: Soft, nontender to palpation, no guarding, no appreciable organomegaly Ext: No gross muscle atrophy, no edema, no contractures Neuro: CN II-XI grossly intact, no focal neuro deficits Psych: Alert, oriented, appropriate affect A total of 36 minutes of time were spent preparing this complex discharge summary. Patient was discharged on 06/07/2024 at 1107. Patient Condition at Discharge: Stable Plan - Discharge Summary Discharge Rx Participant: No New Discharge Prescriptions: New Metoprolol Tartrate [Lopressor] 25 mg PO BID #90 tab cefUROXime axetiL [Ceftin] 500 mg PO BID 10 Days #20 tab Colchicine [Colcrys] 0.6 mg PO DAILY #60 each Continue Multivit-Min/Iron/Folic/Lutein [Centrum Silver Women Tablet] 1 tab PO DAILY Furosemide [Lasix] 20 mg PO DAILY Acetaminophen Tab [Tylenol] 650 - 975 mg PO Q6H PRN PRN Reason: Pain Or Fever > 100.5 Omeprazole [PriLOSEC] 20 mg PO AC-BRKFST Apixaban [Eliquis] 5 mg PO BID Amiodarone HCl [Pacerone] 200 mg PO DAILY #30 tab Albuterol Sulfate [Albuterol Sulfate Hfa] 2 puff PO RT-QID PRN PRN Reason: Shortness Of Breath Discharge Medication List Apixaban [Eliquis] 5 mg PO BID 05/22/24 [History] Furosemide [Lasix] 20 mg PO DAILY 05/22/24 [History] Multivit-Min/Iron/Folic/Lutein [Centrum Silver Women Tablet] 1 tab PO DAILY 05/22/24 [History] Omeprazole [PriLOSEC] 20 mg PO AC-BRKFST 05/22/24 [History] Amiodarone HCl [Pacerone] 200 mg PO DAILY #30 tab 05/27/24 [Rx] Acetaminophen Tab [Tylenol] 650 - 975 mg PO Q6H PRN 06/04/24 [History] Albuterol Sulfate [Albuterol Sulfate Hfa] 2 puff PO RT-QID PRN 06/04/24 [History] Colchicine [Colcrys] 0.6 mg PO DAILY #60 each 06/07/24 [Rx] Metoprolol Tartrate [Lopressor] 25 mg PO BID #90 tab 06/07/24 [Rx] cefUROXime axetiL [Ceftin] 500 mg PO BID 10 Days #20 tab 06/07/24 [Rx] Follow up Appointment(s)/Referral(s): Sebastian Landry MD [STAFF PHYSICIAN] - 1 Week Desi Castanon MD [STAFF PHYSICIAN] - 1 Week Deep Khalil DO [STAFF PHYSICIAN] - 1 Week Oscar Wynn MD [STAFF PHYSICIAN] - 1 Week Osmin Heller DO [Primary Care Provider] - 1-2 days Patient Instructions/Handouts: Pleural Effusion (DC), Pericardial Effusion (DC) Activity/Diet/Wound Care/Special Instructions: Please see oncology, PCP, and pulmonology. You will need to follow up with these specialists for results. Please call Dr. Landry's office to make an appointment. Discharge Disposition: HOME SELF-CARE
[2024-06-09 12:23] LABS: Cyclic Citrull Pep IgG Unit <1.5 U/mL (<=3.9); Cyclic Citrullinated Pep IgG Negative
[2024-06-09 14:28] LABS: C-ANCA <1:20 Titer (<1:20)
== END 2024-06-07 12:18 | disposition home or self-care (01) | DRG 270 ==
LOC: EC 18:52 → 3SCARD 06-04 01:14 → 2SICU 06-05 09:17 → 3SCARD 06-05 09:46
PROVIDERS: ADMIT Internal Medicine; ATTEND Internal Medicine
PROC: 0W9D0ZZ Drainage of Pericardial Cavity, Open Approach (ICD-10-PCS; principal; 2024-06-05 07:30)
DX: I31.39 Other pericardial effusion (noninflammatory) (principal); J18.9 Pneumonia, unspecified organism; J96.01 Acute respiratory failure with hypoxia; J90 Pleural effusion, not elsewhere classified; E87.1 Hypo-osmolality and hyponatremia; J98.19 Other pulmonary collapse; R65.10 Systemic inflammatory response syndrome (SIRS) of non-infectious origin without acute organ dysfunction; E83.51 Hypocalcemia; D50.9 Iron deficiency anemia, unspecified; E83.42 Hypomagnesemia; E86.1 Hypovolemia; E87.6 Hypokalemia; E87.70 Fluid overload, unspecified; E87.8 Other disorders of electrolyte and fluid balance, not elsewhere classified; K21.9 Gastro-esophageal reflux disease without esophagitis; F32.A Depression, unspecified; H54.8 Legal blindness, as defined in USA; I25.10 Atherosclerotic heart disease of native coronary artery without angina pectoris; I48.0 Paroxysmal atrial fibrillation; I51.7 Cardiomegaly; Z87.891 Personal history of nicotine dependence; Z87.11 Personal history of peptic ulcer disease; Z79.01 Long term (current) use of anticoagulants; Z79.899 Other long term (current) drug therapy; Z86.16 Personal history of COVID-19; Z86.69 Personal history of other diseases of the nervous system and sense organs; Z82.0 Family history of epilepsy and other diseases of the nervous system
CPT/HCPCS: 32555; 36415; 71045; 71046; 71270; 76604; 80048; 80053; 80202; 81001; 82150; 82607; 82728; 82746; 82945; 83516; 83540; 83550; 83605; 83615; 83735; 83880; 83921; 84145; 84157; 84484; 85025; 85027; 85045; 85610; 85652; 85730; 86038; 86039; 86140; 86200; 86225; 86235; 86255; 86308; 86431; 86850; 86900; 86901; 87040; 87070; 87075; 87086; 87116; 87205; 87206; 87636; 87651; 88108; 88305; 88341; 88342; 89050; 93005; 93306; 96365; 96366; 96367; 96368; 99291

== ENCOUNTER → 2024-06-12 | Outpatient (CLI) | payer MEDICARE ==
[2024-06-12 19:39] LABS: HCT 36.1 % (37.2-46.3); HGB 10.7 g/dL (12.0-15.0); MCH 27.6 pg (27.0-32.0); MCHC 29.6 g/dL (32.0-37.0); Mean Platelet Volume 10.9 FL (9.5-12.2); NRBC Per 100 WBC 0 X 10*3/uL (0.00-0.01); Platelet Count 552 X 10*3/uL (140-440); RBC 3.88 X 10*6/uL (4.10-5.20); RDW 15.5 % (11.5-14.5); WBC 10.15 X 10*3/uL (4.50-10.00)
[2024-06-12 20:19] LABS: Erythrocyte Sedimentation Rate 51 mm/Hr (0-30)
[2024-06-12 21:10] LABS: Creatine Kinase 39 U/L (26-186)
[2024-06-12 21:11] LABS: ALT 18 U/L (8-44); AST 24 U/L (13-35); Albumin 3.5 g/dL (3.8-4.9); Albumin/Globulin Ratio 1.35 Ratio (1.60-3.17); Alkaline Phosphatase 173 U/L (41-126); Blood Urea Nitrogen 6.9 mg/dL (9.0-27.0); Calcium 8.9 mg/dL (8.7-10.3); Carbon Dioxide 30.4 mmol/L (21.6-31.8); Chloride 100 mmol/L (96-109); Globulin 2.6 g/dL (1.6-3.3); Glucose 96 mg/dL (70-110); Potassium 4.3 mmol/L (3.5-5.5); Sodium 143 mmol/L (135-145); Total Bilirubin 0.4 mg/dL (0.3-1.2); Total Protein 6.1 g/dL (6.2-8.2)
[2024-06-12 21:56] LABS: DNA Double-Stranded Negative (Negative)
[2024-06-12 22:49] LABS: Cyclic Citrull Pep IgG Unit <1.5 U/mL (<=3.9); Cyclic Citrullinated Pep IgG Negative
== END | disposition home or self-care (01) ==
LOC: LABWHC1 15:30
PROVIDERS: ATTEND Internal Medicine
DX: I31.39 Other pericardial effusion (noninflammatory) (principal); J90 Pleural effusion, not elsewhere classified; L29.9 Pruritus, unspecified
CPT/HCPCS: 36415; 80053; 82550; 85027; 85652; 86140; 86200; 86225

== ENCOUNTER 2024-08-31 13:54 | Emergency (ER) | payer MEDICARE ==
[2024-08-31 13:58] VITALS: RESP 16
[2024-08-31] MEDS: KETOROLAC 15 MG/ML 1 ML VIAL IVP STA ×2 (14:21→17:19)
[2024-08-31] MEDS: LIDOCAINE 4% PATCH TOPICAL ONE (14:22)
--- NOTE | 2024-08-31 14:30 | ED ---
Abdominal Pain HPI - General Chief Complaint: Abdominal Pain Stated Complaint: R side pain with cough Time Seen by Provider: 08/31/24 14:00 Source: patient, RN notes reviewed Mode of arrival: ambulatory Limitations: no limitations - History of Present Illness Initial Comments: This is a 74-year-old female who presents to the emergency department for right side pain. States that over the last 7 days she has had pain in her right mid back and right upper quadrant as well as right shoulder. Pain is worse when she moves or coughs. States that it is also very tender to the touch. She has not noticed any rashes. While it is painful to breathe and cough, states that she is not short of breath. Denies any nausea/vomiting or changes in bowel/bladder habits. Also denies any urinary symptoms. She was put on a course of prednisone for 5 days, but has not had any improvement. She does have a history of pleural effusions and is concerned about something like this happening again. States that she has an appointment with Dr. Moreno coming up this week, however due to the pain she couldn't wait. MD Complaint: abdominal pain - Related Data Home Medications Medication Instructions Recorded Confirmed Apixaban [Eliquis] 5 mg PO BID 05/22/24 06/04/24 Furosemide [Lasix] 20 mg PO DAILY 05/22/24 06/04/24 Multivit-Min/Iron/Folic/Lutein 1 tab PO DAILY 05/22/24 06/04/24 [Centrum Silver Women Tablet] Omeprazole [PriLOSEC] 20 mg PO AC-BRKFST 05/22/24 06/04/24 Acetaminophen Tab [Tylenol] 650 - 975 mg PO Q6H PRN 06/04/24 06/04/24 Albuterol Sulfate [Albuterol 2 puff PO RT-QID PRN 06/04/24 06/04/24 Sulfate Hfa] Previous Rx's Medication Instructions Recorded Amiodarone HCl [Pacerone] 200 mg PO DAILY #30 tab 05/27/24 Colchicine [Colcrys] 0.6 mg PO DAILY #60 each 06/07/24 Metoprolol Tartrate [Lopressor] 25 mg PO BID #90 tab 06/07/24 cefuroxime axetiL [Ceftin] 500 mg PO BID 10 Days #20 tab 06/07/24 Allergies Allergy/AdvReac Type Severity Reaction Status Date / Time No Known Allergies Allergy Verified 08/31/24 13:58 Review of Systems ROS Statement: Those systems with pertinent positive or pertinent negative responses have been documented in the HPI. ROS Other: All systems not noted in ROS Statement are negative. Past Medical History Past Medical History: Atrial Fibrillation, GERD/Reflux, Pneumonia Additional Past Medical History / Comment(s): MigraineS. Food gets stuck when swallowing. hx ABD PAIN. HEMMROIDS, gallstone, optic nerve damage tatiana eyes; COVID in 2022 History of Any Multi-Drug Resistant Organisms: None Reported Past Surgical History: Breast Surgery Additional Past Surgical History / Comment(s): left breast lumpectomy x 2. Past Anesthesia/Blood Transfusion Reactions: No Reported Reaction Past Psychological History: Depression Smoking Status: Former smoker Past Alcohol Use History: Rare Past Drug Use History: None Reported - Past Family History Brother(s) Family Medical History: Pulmonary Embolus Mother Additional Family Medical History / Comment(s): from Alzheimer's Father Additional Family Medical History / Comment(s): from unknown cause, possibly his heart General Exam Limitations: no limitations General appearance: alert, in no apparent distress Head exam: Present: atraumatic, normocephalic, normal inspection Respiratory exam: Present: normal lung sounds bilaterally. Absent: respiratory distress, wheezes, rales, rhonchi, stridor Cardiovascular Exam: Present: regular rate, normal rhythm, normal heart sounds. Absent: systolic murmur, diastolic murmur, rubs, gallop, clicks GI/Abdominal exam: Present: soft, tenderness (RUQ and right side). Absent: distended Neurological exam: Present: alert, oriented X3, CN II-XII intact Psychiatric exam: Present: normal affect, normal mood Skin exam: Present: warm, dry, intact, normal color. Absent: rash Course Vital Signs 08/31/24 08/31/24 08/31/24 13:55 16:39 17:25 Temperature 97.9 F 97.9 F 98.2 F Pulse Rate 79 57 L 63 Respiratory 16 16 16 Rate Blood Pressure 185/82 181/87 173/80 O2 Sat by Pulse 99 99 99 Oximetry Medical Decision Making - Medical Decision Making This is a 74-year-old female who presents to the emergency department for right- sided abdominal pain. Was pt. sent in by a medical professional or institution? @ -No Did you speak to anyone other than the patient for history? @ -No Did you review nursing and triage notes? @ -Yes, and I agree, it is accurate with regards to the patient's symptoms. Were old charts reviewed? @ -No Differential Diagnosis? @ -Differential Abdominal Pain Women: Appendicitis, Cholecystitis, diverticulosis, ischemic bowel, pancreatitis, hepatitis, UTI, gastroenteritis, AAA, incarcerated hernia, bowel obstruction, constipation, inflammatory bowel, hepatitis, peptic ulcer disease, splenic inf arction, perforated viscus, vulvitis, ovarian torsion, PID, kidney stone, placenta abruption, this is not meant to be an all-inclusive list EKG interpreted by me (3pts min.)? @ -EKG interpreted by me demonstrating the following: Sinus rhythm. Ventricular rate 60 bpm, ND interval 159 ms, QRS duration 91 ms, QTc 457 ms. X-rays interpreted by me (1pt min.)? @ -Not obtained CT interpreted by me (1pt min.)? @ -CTA of the chest obtained. My interpretation identifies no evidence of a pulmonary embolus. U/S interpreted by me (1pt. min.)? @ -Not obtained What testing was considered but not performed? (CT, X-rays, U/S, labs)? Why? @ -CT scan of the abdomen and pelvis to better evaluate for signs of a kidney stone, however patient declined as she did not feel it was necessary because her pain felt different. What meds were considered but not given? Why? @ -None Did you discuss the management of the patient with other professionals? @ -No Did you reconcile home meds? @ -No Was smoking cessation discussed for >3mins.? @ -No Was critical care preformed (if so, how long)? @ -No Were there social determinants of health that impacted care today? How? (Homelessness, low income, unemployed, alcoholism, drug addiction, transp ortation, low edu. Level, literacy, decrease access to med. care, [facility], rehab)? @ -No Was there de-escalation of care discussed even if they declined? (Discuss DNR or withdrawal of care, Hospice)? @ -No What co-morbidities impacted this encounter? (DM, HTN, Smoking, COPD, CAD, Cancer, CVA, Hep., AIDS, mental health diagnosis, sleep apnea, morbid obesity)? @ -A-fib Was patient admitted / discharged? @ -Discharged. Lab work demonstrates an elevated lactic acid of 3.2 and is otherwise unremarkable. Urinalysis negative for signs of infection. CTA of the chest demonstrates no evidence of a pulmonary embolus. She does have an enlarging right lower lobe nodule that initially did not have metabolic activity on prior PET/CT. However, this has essentially doubled in size when compared with imaging from May and there is evidence of a subcarinal lymph nodes, which is concerning for malignancy, possibly bronchoalveolar. Bronchoscopy with tissue sampling of the subcarinal lymph node is recommended. They did also make note of a left obstructing calculus. I offered further evaluation with a CT scan of the abdomen and pelvis to see if she does have more prominent kidney stones on the right that could be moving and causing her pain, however patient states that she has a history of kidney stones and this feels very different and thus declined. Patient has an appointment with Dr. Moreno, pulmonology, in 2 days. We got her symptoms to a manageable level and she advised that she is more comfortable going home at this point. She does have [place] that she was prescribed by her PCP. She was given strict return parameters and advised to make sure that she follows up with Dr. Landry as scheduled. Patient discharged home in stable condition. Case discussed with ED attending Dr. Vásquez. Return precautions reviewed in depth, the patient is instructed to return to the emergency department with any new, worsening, or concerning symptoms. Patient verbalized understanding. Undiagnosed new problem with uncertain prognosis? @ -None Drug Therapy requiring intensive monitoring for toxicity (Heparin, Nitro, Insulin, Cardizem)? @ -None Were any procedures done? @ -None Diagnosis/symptom? @ -Right side pain, enlarging pulmonary nodule Acute, or Chronic, or Acute on Chronic? @ -Acute Uncomplicated (without systemic symptoms) or Complicated (systemic symptoms)? @ -Uncomplicated Side effects of treatment? @ -None Exacerbation, Progression, or Severe Exacerbation] @ -Not applicable Poses a threat to life or bodily function? @ -Yes, if not followed closely - Lab Data Result diagrams: 08/31/24 14:34 08/31/24 14:34 Lab Results 01/19/25 01/19/25 01/19/25 Range/Units 14:34 14:34 14:34 WBC 10.2 (3.8-10.6) k/uL RBC 4.83 (3.80-5.40) m/uL Hgb 14.1 (11.4-16.0) gm/dL Hct 43.3 (34.0-46.0) % MCV 89.8 (80.0-100.0) fL MCH 29.3 (25.0-35.0) pg MCHC 32.6 (31.0-37.0) g/dL RDW 15.3 (11.5-15.5) % Plt Count 283 (150-450) k/uL MPV 10.0 Neutrophils % 85 % Lymphocytes % 12 % Monocytes % 1 % Eosinophils % 2 % Basophils % 0 % Neutrophils # 8.7 H (1.3-7.7) k/uL Lymphocytes # 1.2 (1.0-4.8) k/uL Monocytes # 0.1 (0-1.0) k/uL Eosinophils # 0.2 (0-0.7) k/uL Basophils # 0.0 (0-0.2) k/uL PT 11.2 (10.0-12.5) sec INR 1.0 (<1.2) APTT 25.5 (22.0-30.0) sec D-Dimer 0.38 (<0.60) mg/L FEU Sodium 142 (137-145) mmol/L Potassium 3.4 L (3.5-5.1) mmol/L Chloride 98 (98-107) mmol/L Carbon Dioxide 28 (22-30) mmol/L Anion Gap 16 mmol/L BUN 16 (7-17) mg/dL Creatinine 0.71 (0.52-1.04) mg/dL Est GFR (CKD-EPI)AfAm >90 (>60 ml/min/1.73 sqM) Est GFR (CKD-EPI)NonAf 86 (>60 ml/min/1.73 sqM) Glucose 149 H (74-99) mg/dL Lactic Ac Sepsis Rflx Plasma Lactic Acid Ezekiel (0.7-2.0) mmol/L Calcium 9.8 (8.4-10.2) mg/dL Magnesium 2.0 (1.6-2.3) mg/dL Total Bilirubin 0.3 (0.2-1.3) mg/dL AST 28 (14-36) U/L ALT 21 (4-34) U/L Alkaline Phosphatase 95 (38-126) U/L Troponin I (0.000-0.034) ng/mL NT-Pro-B Natriuret Pep 578 pg/mL Total Protein 7.8 (6.3-8.2) g/dL Albumin 4.8 (3.5-5.0) g/dL Lipase 109 (23-300) U/L Urine Color Urine Appearance (Clear) Urine pH (5.0-8.0) Ur Specific Napoleon (1.001-1.035) Urine Protein (Negative) Urine Glucose (UA) (Negative) Urine Ketones (Negative) Urine Blood (Negative) Urine Nitrite (Negative) Urine Bilirubin (Negative) Urine Urobilinogen (<2.0) mg/dL Ur Leukocyte Esterase (Negative) Urine RBC (0-5) /hpf Urine WBC (0-5) /hpf Ur Squamous Epith Cells (0-4) /hpf Urine Mucus (None) /hpf 08/31/24 08/31/24 08/31/24 Range/Units 14:34 14:34 14:57 WBC (3.8-10.6) k/uL RBC (3.80-5.40) m/uL Hgb (11.4-16.0) gm/dL Hct (34.0-46.0) % MCV (80.0-100.0) fL MCH (25.0-35.0) pg MCHC (31.0-37.0) g/dL RDW (11.5-15.5) % Plt Count (150-450) k/uL MPV Neutrophils % % Lymphocytes % % Monocytes % % Eosinophils % % Basophils % % Neutrophils # (1.3-7.7) k/uL Lymphocytes # (1.0-4.8) k/uL Monocytes # (0-1.0) k/uL Eosinophils # (0-0.7) k/uL Basophils # (0-0.2) k/uL PT (10.0-12.5) sec INR (<1.2) APTT (22.0-30.0) sec D-Dimer (<0.60) mg/L FEU Sodium (137-145) mmol/L Potassium (3.5-5.1) mmol/L Chloride (98-107) mmol/L Carbon Dioxide (22-30) mmol/L Anion Gap mmol/L BUN (7-17) mg/dL Creatinine (0.52-1.04) mg/dL Est GFR (CKD-EPI)AfAm (>60 ml/min/1.73 sqM) Est GFR (CKD-EPI)NonAf (>60 ml/min/1.73 sqM) Glucose (74-99) mg/dL Lactic Ac Sepsis Rflx Plasma Lactic Acid Ezekiel 3.2 H* (0.7-2.0) mmol/L Calcium (8.4-10.2) mg/dL Magnesium (1.6-2.3) mg/dL Total Bilirubin (0.2-1.3) mg/dL AST (14-36) U/L ALT (4-34) U/L Alkaline Phosphatase (38-126) U/L Troponin I <0.012 (0.000-0.034) ng/mL NT-Pro-B Natriuret Pep pg/mL Total Protein (6.3-8.2) g/dL Albumin (3.5-5.0) g/dL Lipase (23-300) U/L Urine Color Colorless Urine Appearance Clear (Clear) Urine pH 6.0 (5.0-8.0) Ur Specific Napoleon 1.005 (1.001-1.035) Urine Protein Negative (Negative) Urine Glucose (UA) Negative (Negative) Urine Ketones Negative (Negative) Urine Blood Large H (Negative) Urine Nitrite Negative (Negative) Urine Bilirubin Negative (Negative) Urine Urobilinogen <2.0 (<2.0) mg/dL Ur Leukocyte Esterase Trace H (Negative) Urine RBC 5 (0-5) /hpf Urine WBC 6 H (0-5) /hpf Ur Squamous Epith Cells <1 (0-4) /hpf Urine Mucus Rare H (None) /hpf 08/31/24 Range/Units 15:17 WBC (3.8-10.6) k/uL RBC (3.80-5.40) m/uL Hgb (11.4-16.0) gm/dL Hct (34.0-46.0) % MCV (80.0-100.0) fL MCH (25.0-35.0) pg MCHC (31.0-37.0) g/dL RDW (11.5-15.5) % Plt Count (150-450) k/uL MPV Neutrophils % % Lymphocytes % % Monocytes % % Eosinophils % % Basophils % % Neutrophils # (1.3-7.7) k/uL Lymphocytes # (1.0-4.8) k/uL Monocytes # (0-1.0) k/uL Eosinophils # (0-0.7) k/uL Basophils # (0-0.2) k/uL PT (10.0-12.5) sec INR (<1.2) APTT (22.0-30.0) sec D-Dimer (<0.60) mg/L FEU Sodium (137-145) mmol/L Potassium (3.5-5.1) mmol/L Chloride (98-107) mmol/L Carbon Dioxide (22-30) mmol/L Anion Gap mmol/L BUN (7-17) mg/dL Creatinine (0.52-1.04) mg/dL Est GFR (CKD-EPI)AfAm (>60 ml/min/1.73 sqM) Est GFR (CKD-EPI)NonAf (>60 ml/min/1.73 sqM) Glucose (74-99) mg/dL Lactic Ac Sepsis Rflx Y Plasma Lactic Acid Ezekiel (0.7-2.0) mmol/L Calcium (8.4-10.2) mg/dL Magnesium (1.6-2.3) mg/dL Total Bilirubin (0.2-1.3) mg/dL AST (14-36) U/L ALT (4-34) U/L Alkaline Phosphatase (38-126) U/L Troponin I (0.000-0.034) ng/mL NT-Pro-B Natriuret Pep pg/mL Total Protein (6.3-8.2) g/dL Albumin (3.5-5.0) g/dL Lipase (23-300) U/L Urine Color Urine Appearance (Clear) Urine pH (5.0-8.0) Ur Specific Napoleon (1.001-1.035) Urine Protein (Negative) Urine Glucose (UA) (Negative) Urine Ketones (Negative) Urine Blood (Negative) Urine Nitrite (Negative) Urine Bilirubin (Negative) Urine Urobilinogen (<2.0) mg/dL Ur Leukocyte Esterase (Negative) Urine RBC (0-5) /hpf Urine WBC (0-5) /hpf Ur Squamous Epith Cells (0-4) /hpf Urine Mucus (None) /hpf - Radiology Data Radiology results: report reviewed, image reviewed Disposition Clinical Impression: Right-sided chest wall pain, Back pain, Right lower lobe pulmonary nodule Disposition: HOME SELF-CARE Additional Instructions: Return to the emergency department with any new, worsening, or concerning symptoms. Follow-up with Dr. Landry as scheduled. Is patient prescribed a controlled substance at d/c from ED?: No Referrals: Osmin Heller DO [Primary Care Provider] - 1-2 days Time of Disposition: 17:09
[2024-08-31 14:41] LABS: Basophils % (A) 0 %; Eosinophils # (A) 0.2 k/uL (0-0.7); Eosinophils % (A) 2 %; HCT 43.3 % (34.0-46.0); HGB 14.1 gm/dL (11.4-16.0); Lymphocytes # (A) 1.2 k/uL (1.0-4.8); Lymphocytes % (A) 12 %; MCH 29.3 pg (25.0-35.0); MCHC 32.6 g/dL (31.0-37.0); MCV 89.8 fL (80.0-100.0); Monocytes # (A) 0.1 k/uL (0-1.0); Monocytes % (A) 1 %; Neutrophils # (A) 8.7 k/uL (1.3-7.7); Neutrophils % (A) 85 %; Platelet Count 283 k/uL (150-450); RBC 4.83 m/uL (3.80-5.40); RDW 15.3 % (11.5-15.5); WBC 10.2 k/uL (3.8-10.6)
[2024-08-31 14:54] LABS: ALT 21 U/L (4-34); AST 28 U/L (14-36); African American GFR (CKD) >90 (>60 ml/min/1.73 sqM); Albumin 4.8 g/dL (3.5-5.0); Alkaline Phosphatase 95 U/L (38-126); Anion Gap 16 mmol/L; Blood Urea Nitrogen 16 mg/dL (7-17); Calcium 9.8 mg/dL (8.4-10.2); Carbon Dioxide 28 mmol/L (22-30); Chloride 98 mmol/L (98-107); Glucose 149 mg/dL (74-99); Lipase 109 U/L (23-300); Non-African American GFR(CKD) 86 (>60 ml/min/1.73 sqM); Potassium 3.4 mmol/L (3.5-5.1); Sodium 142 mmol/L (137-145); Total Bilirubin 0.3 mg/dL (0.2-1.3); Total Protein 7.8 g/dL (6.3-8.2)
[2024-08-31 14:57] LABS: Partial Thromboplastin Time 25.5 sec (22.0-30.0); Prothrombin Time 11.2 sec (10.0-12.5)
[2024-08-31 15:02] LABS: NT-Pro-B-Type Natriuretic Pept 578 pg/mL
[2024-08-31 15:15] LABS: Appearance,Urine Clear (Clear); Bilirubin,Urine Negative (Negative); Blood,Urine Large (Negative); Color,Urine Colorless; Glucose,Urine (UA) Negative (Negative); Ketones,Urine Negative (Negative); Leukocyte Esterase,Urine Trace (Negative); Mucus,Urine Rare /hpf; Nitrite,Urine Negative (Negative); Protein,Urine Negative (Negative); RBC,Urine 5 /hpf (0-5); Specific Gravity,Urine 1.005 (1.001-1.035); Squamous Epithelial Cell,Urine <1 /hpf (0-4); Urobilinogen,Urine <2.0 mg/dL (<2.0); WBC,Urine 6 /hpf (0-5)
[2024-08-31] MEDS: SODIUM CHLORIDE 0.9% 1,000 ML IV STA (15:35)
--- NOTE | 2024-08-31 15:36 | CT ---
EXAMINATION TYPE: CT chest angio for PE DATE OF EXAM: 08/31/2024 3:14 PM COMPARISON: 06/04/2024 PET/CT 894. CLINICAL INDICATION: Female, 74 years old with history of Right sided chest pain, ISAURO; Pt. c/o RUQ pa in that radiates to right flank- worse with activity and deep breathing. Pt. was seen by PCP and give n prednisone for 5 days. TECHNIQUE/CONTRAST: CTA scan of the thorax is performed with IV Contrast, patient injected with 100ml mL of Isovue 370, M IP images are created and reviewed these are created on a separate workstation.. CT DLP: 232.3 mGycm, Automated exposure control for dose reduction was used. FINDINGS: Lungs/Pleura: No evidence of focal consolidation, pleural effusion or pneumothorax. Airway: Large airways are patent. Heart: Size within normal limits Atherosclerosis of the arterial vasculature. Vasculature: There is no evidence for a filling defect within the pulmonary vasculature to suggest ac serge pulmonary embolism. The pulmonary artery is of normal size. Mediastinum: Subcarinal lymph node measuring up to 19 mm which is is not seen on prior on 06/04/2024. Right lower lobe nodule which did not have increased metabolic activity on prior PET/CT also increas ed in size compared to prior now measuring 33 x 19 mm previously 15 x 13 mm on 06/04/2024 Musculoskeletal: No acute osseous abnormalities, T8 vertebral body sclerotic focus agree representing a bone island, stable from prior. No lytic lesions identified. Soft Tissues/lymph nodes: Unremarkable. Lower neck: No significant findings. Upper Abdomen: Left obstructing 4 mm calculus. IMPRESSION: 1. No evidence of pulmonary embolism. 2. Enlarging right lower lobe nodule which did not have metabolic activity on prior PET/CT. Additiona lly there is evidence of subcarinal lymph node which is not seen on prior CT or PET/CT. Findings now concerning for malignancy possibly bronchoalveolar. Bronchoscopy with tissue sampling of the subcarin al lymph node recommended. [facility], , 08/31/2024 3:34 PM
[2024-08-31] MEDS: oxyCODONE-APAP 10-325MG 1 EACH TAB PO STA (17:21)
[2024-08-31 17:27] VITALS: BP 173/80; PULSE 63; TEMP 98.2
== END 2024-08-31 17:29 | disposition home or self-care (01) ==
LOC: EC 13:54
DX: R07.89 Other chest pain (principal); R91.1 Solitary pulmonary nodule; M54.9 Dorsalgia, unspecified; R10.11 Right upper quadrant pain; R74.02 Elevation of levels of lactic acid dehydrogenase [LDH]; I48.91 Unspecified atrial fibrillation; Z79.01 Long term (current) use of anticoagulants; Z87.891 Personal history of nicotine dependence; Z86.16 Personal history of COVID-19
CPT/HCPCS: 36415; 93005; 85379; 83880; 80053; 83605; 83690; 83735; 84484; 85025; 85610; 85730; 81001; 71275; 99284; 96374; 96376; 96361; J1885; Q9967

== ENCOUNTER → 2024-09-11 | Outpatient (CLI) | payer MEDICARE ==
--- NOTE | 2024-09-12 23:14 | PE ---
EXAMINATION TYPE: PET CT fusion skull to thigh DATE OF EXAM: 09/11/2024 COMPARISON: CTA chest 08/31/2024 Prior PET/CT: 03/21/2024 CLINICAL INDICATION: Female, 74 years old with history of R91.8 LUNG NODULE, TECHNIQUE: Following the intravenous administration of 11.76 mCi of F-18 FDG, whole body images are performed from the skull base to the midthigh. Images are reviewed on the computer in the coronal, a xial, and sagittal planes. Reconstructed rotating images are created on independent workstation and reviewed on the computer. A localization and attenuation correction CT is performed in conjunction with the PET scan. DLP: 386.18 mGycm SCAN: Reported as Initial Blood glucose: 72 mg/dL Average Mediastinum SUV: 1.89 Average Liver SUV: 2.19 FINDINGS: NECK: No abnormal uptake THORAX: There is intense uptake in the subcarinal region with an SUV of 8.03. A small focus of radiot racer is in the right hilar region, image 97, with an SUV of 5.25. An additional adjacent nodule may be present image 99 within SUV of 2.1. Posterior right lung base mass image 112 has an SUV of 4.89. Some very subtle pleural or osseous rib cortex uptake may be present image 127 right anterior lateral rib with an SUV of 2.42. ABDOMEN: No abnormal uptake PELVIS: No abnormal uptake OSSEOUS STRUCTURES: Pleural versus osseous cortex uptake anterolateral right rib discussed under thor ax. LOCALIZATION CT: Subcarinal enlarged adenopathy is present correlating with the abnormal uptake. Abno rmal hilar and the identified by PET CT is not as clearly evident. Posterior right lung mass evident. Nonobstructing left renal stone present. Nonobstructing left distal ureteral stone may be present. M ild fecal retention is present. COMPARISON: Areas of uptake identified in the thorax are new and suspicious for metastatic disease. IMPRESSION: 1. New areas of uptake within the posterior right lung, subcarinal, and right hilar lymph nodes suspi cious for metastatic disease. 2. Some subtle intermediate signal is within the anterolateral right pleural margin at the lung base. This could be within the cortex. Osseous or pleural metastasis could be within the differential disl ocation. [facility], , 09/12/2024 11:12 PM
== END | disposition home or self-care (01) ==
LOC: RADPETMAIN 11:19
PROVIDERS: ATTEND Internal Medicine
DX: R91.8 Other nonspecific abnormal finding of lung field (principal); K59.09 Other constipation; N20.0 Calculus of kidney
CPT/HCPCS: 78815; A9552

== ENCOUNTER 2024-10-08 09:06 | Day surgery (SDC) | payer MEDICARE ==
[2024-10-07 12:21] VITALS: BMI 23.8
[2024-10-08] MEDS: IV FLUID CONTINUATION 1,000 ML IV ONE (09:46)
[2024-10-08] MEDS: DEXAMETHASONE SOD PHOSPHATE 4 MG/ML 1 ML VIAL IV ONE (10:19)
[2024-10-08] MEDS: ONDANSETRON 4 MG/2 ML VIAL IVP ONE (10:19)
[2024-10-08] MEDS: LACTATED RINGERS 1,000 ML IV SCH (10:19)
[2024-10-08] MEDS: MIDAZOLAM 2 MG/2 ML VIAL IV ONE (10:23)
[2024-10-08] MEDS ORDERED: fentaNYL (PF) 50 MCG/ML 2 ML AMP IVP PRN (10:39)
[2024-10-08] MEDS: fentaNYL (PF) 50 MCG/ML 2 ML AMP IVP PRN (10:43)
[2024-10-08] MEDS ORDERED: NEOSTIGMINE 1 MG/ML 10 ML VIAL ONE (11:37)
[2024-10-08] MEDS ORDERED: fentaNYL (PF) 50 MCG/ML 2 ML AMP ONE (11:37)
[2024-10-08] MEDS ORDERED: PROPOFOL 10 MG/ML 20 ML VIAL IV ONE (11:37)
[2024-10-08] MEDS ORDERED: MIDAZOLAM 2 MG/2 ML VIAL ONE (11:37)
[2024-10-08] MEDS ORDERED: HYDROmorphone (PF) 1 MG/ML ONE (11:37)
[2024-10-08] MEDS ORDERED: LIDOCAINE 1% INJ 10MG/ML (20 ML MDV) ONE (11:37)
[2024-10-08] MEDS ORDERED: SUCCINYLCHOLINE CHLORIDE 200 MG/10 ML VIAL IV ONE (11:37)
[2024-10-08] MEDS ORDERED: GLYCOPYRROLATE 0.2 MG/ML 2 ML VIAL ONE (11:37)
[2024-10-08] MEDS ORDERED: ROCURONIUM 10 MG/ML (5 ML VIAL) IV ONE (11:37)
[2024-10-08] MEDS ORDERED: SUGAMMADEX SODIUM 100 MG/ML SYR IV ONE (11:37)
[2024-10-08] MEDS: BUPIVACAINE (PF) 0.5% 30 ML VIAL SQ ONE (12:20)
[2024-10-08] MEDS: LACTATED RINGERS 1,000 ML IV ONE (12:25)
[2024-10-08] MEDS: HYDROmorphone 0.5 MG/0.5 ML SYRINGE IVP PRN (13:01)
[2024-10-08] MEDS: LABETALOL SYRINGE 5 MG/ML (4 ML SYR) IVP STA (13:11)
--- NOTE | 2024-10-08 13:44 | XR ---
EXAMINATION TYPE: XR chest 1V portable DATE OF EXAM: 10/08/2024 COMPARISON: Chest x-ray September 12, 2024 CLINICAL INDICATION: Female, 74 years old with history of post lung biopsy; TECHNIQUE: Single frontal view of the chest is obtained. FINDINGS: There is new right apical chest tube without visualized pneumothorax. There is patchy bibas ilar opacities favoring atelectasis. Persisting cardiomegaly with atherosclerotic thoracic aorta. T he osseous structures are intact. IMPRESSION: New right-sided chest tube without pneumothorax. [facility], , 10/08/2024 1:42 PM
[2024-10-08] MEDS: hydrALAZINE HCL 20 MG/ML 1 ML VIAL IVP PRN (13:50)
--- NOTE | 2024-10-08 15:04 | P.OP ---
Date of Procedure: 10/08/24 Preoperative Diagnosis: Stage III neuroendocrine tumor right lung with severe right chest wall pain, evaluate for stage IV pleural disease based on suspicious PET scan. Postoperative Diagnosis: Same Procedure(s) Performed: Right thoracoscopy with pleural biopsy Anesthesia: MILLER Surgeon: Oscar Wynn Estimated Blood Loss (ml): 3 Pathology: other (Right pleural biopsy) Condition: stable Disposition: PACU Indications for Procedure: 74-year-old female with right lower lobe mass and right hilar and subcarinal disease by PET scan. There is a suspicious area along the inner portion of the sixth rib by PET scan. This is normal by CT scan. Patient has severe right- sided chest wall pain which is otherwise unexplained. Pleural exploration and biopsy was requested by Dr. Moser. Operative Findings: There were multiple areas of pleural implant along the lower half of the parietal pleura in the right chest as well as along the diaphragm. Description of Procedure: Patient was brought to the operating room and placed supine on the operating table. General anesthesia was induced and a 2 lm endotracheal tube placed and appropriately positioned with fiberoptic bronchoscopy. Tube was secured and the patient was turned in the left lateral decubitus position. The right chest was sterilely prepped and draped. 2 incisions were made in the posterior axillary line in the fifth and seventh interspace. Through 1 the thoracoscope was placed. Single lung ventilation had been initiated. Was immediately evident that there were multiple areas of pleural metastasis in the lower half of the chest on the parietal pleura as well as over the diaphragm. Through the second incision a ring forceps was used to biopsy 2 of these areas. The tumor was sent for pathology. 28 Swiss chest tube was placed through separate stab incision and positioned posterior apically and secured with an 0 Ethibond suture. The lung was reinflated and the video thoracoscope removed. Incisions were closed with layers of Vicryl suture and skin glue. Dry sterile dressings were applied. Rib blocks were performed posteriorly at the level of the incisions using half percent Marcaine. Patient was extubated and transferred to recovery in stable condition.
--- NOTE | 2024-10-08 15:12 | P.ANPRN ---
Procedure Note - Anesthesia - Nerve Block Performed Right Erector Spinae Single Time Out Performed: Yes (1022) Date of Procedure: 10/08/24 Procedure Start Time: 10:23 Procedure Stop Time: 10:32 Location of Patient: PreOp Indication: Acute Post-Operative Pain, Requested by Surgeon Specifically requested for management of pain by DrFidencio: Oscar Wynn Sedation Type: Sedate with meaningful contact maintained Preparation: Sterile Prep Position: Sitting Catheter: None Needle Types: Pajunk Needle Gauge: 21 Ultrasound used to visualize needle placement: Yes Ultrasound used to observe medication spread: Yes Injectate: 0.5% Ropivacaine (see comment for volume) (30cc) Blood Aspirated: No Pain Paresthesia on Injection Noted: No Resistance on Injection: Normal Image Stored and Saved: Yes Events: Uneventful and Well Tolerated
--- NOTE | 2024-10-08 15:12 | P.ANPRN ---
Procedure Note - Anesthesia - Invasive Line Left Arterial Line Time Out Performed: Yes (1022) Date of Procedure: 10/08/24 Time of Procedure: 10:33 Location of Patient: PreOp Preparation: Sterile Prep, Sterile Dressing Arterial Line Location: Radial (left) Ultrasound Used: No Purpose - Visualization and Identification of Vasculature: No Needle Guage: 20g Image Stored and Saved: No Narrative: Invasive line placement per sterile protocol utilized. lumen bled and flushed
[2024-10-08] MEDS: HYDROmorphone 0.5 MG/0.5 ML SYRINGE IVP STA ×2 (16:40→17:41)
[2024-10-08] MEDS ORDERED: IPRATROPIUM-ALBUTEROL 3 ML NEB IH PRN (18:48)
[2024-10-08] MEDS ORDERED: ONDANSETRON 4 MG/2 ML VIAL IVP PRN (18:48)
[2024-10-08] MEDS: oxyCODONE-APAP 10-325MG 1 EACH TAB PO PRN (18:59)
[2024-10-08] MEDS: KETOROLAC 15 MG/ML 1 ML VIAL IVP SCH (19:00)
[2024-10-08] MEDS ORDERED: HYDROmorphone PCA 10 MG/50 ML BAG IV PRN (20:04)
[2024-10-08] MEDS ORDERED: diphenhydrAMINE 50 MG/ML 1 ML VIAL IVP PRN (20:04)
[2024-10-08] MEDS ORDERED: NALOXONE 0.4 MG/ML 1 ML VIAL IV PRN (20:04)
[2024-10-08] MEDS: METOPROLOL TARTRATE 25 MG TAB PO SCH (20:59)
[2024-10-08] MEDS: HEPARIN SODIUM,PORCINE 5,000 UNIT/ML 1 ML VIAL SQ SCH (20:59)
[2024-10-08] MEDS: SODIUM CHLORIDE 0.9% 1,000 ML IV SCH (21:00)
[2024-10-08] MEDS: HYDROmorphone PCA 10 MG/50 ML BAG IV PRN (21:23)
[2024-10-08] MEDS: IPRATROPIUM-ALBUTEROL 3 ML NEB IH SCH (22:03)
[2024-10-08] MEDS: DEXTROSE 5%-0.45% NACL 1,000 ML IV SCH (22:04)
[2024-10-09] MEDS: PANTOPRAZOLE 40 MG TABLET PO SCH (05:38)
[2024-10-09 06:24] LABS: Basophils % (A) 0 %; Eosinophils # (A) 0.1 k/uL (0-0.7); Eosinophils % (A) 1 %; HCT 43.4 % (34.0-46.0); HGB 13.1 gm/dL (11.4-16.0); Lymphocytes # (A) 1.4 k/uL (1.0-4.8); Lymphocytes % (A) 10 %; MCH 28.3 pg (25.0-35.0); MCHC 30.1 g/dL (31.0-37.0); MCV 93.9 fL (80.0-100.0); Mean Platelet Volume 8.7; Monocytes # (A) 0.7 k/uL (0-1.0); Monocytes % (A) 5 %; Neutrophils # (A) 12.3 k/uL (1.3-7.7); Neutrophils % (A) 84 %; Platelet Count 319 k/uL (150-450); RBC 4.62 m/uL (3.80-5.40); WBC 14.7 k/uL (3.8-10.6)
[2024-10-09 07:06] LABS: African American GFR (CKD) >90 (>60 ml/min/1.73 sqM); Anion Gap 8 mmol/L; Blood Urea Nitrogen 19 mg/dL (7-17); Calcium 9.5 mg/dL (8.4-10.2); Carbon Dioxide 32 mmol/L (22-30); Chloride 94 mmol/L (98-107); Glucose 97 mg/dL (74-99); Non-African American GFR(CKD) 90 (>60 ml/min/1.73 sqM); Potassium 4.4 mmol/L (3.5-5.1); Sodium 134 mmol/L (137-145)
[2024-10-09] MEDS: AMIODARONE 100 MG TAB PO SCH (08:24)
--- NOTE | 2024-10-09 08:30 | XR ---
EXAMINATION TYPE: XR chest 1V portable DATE OF EXAM: 10/09/2024 COMPARISON: Chest x-ray from one day earlier CLINICAL INDICATION: Female, 74 years old with history of post lung biopsy; TECHNIQUE: Single frontal view of the chest is obtained. FINDINGS: There is persistent right apical chest tube without visualized pneumothorax. There is persi stent right basilar opacity. Improved aeration left lung base. Persisting cardiomegaly with atheroscl erotic thoracic aorta. The osseous structures are intact. IMPRESSION: Stable right-sided chest tube without pneumothorax. Improved aeration left lung base. Pe rsistent right basilar acute infiltrate and/or atelectasis noted. [facility], , 10/09/2024 8:28 AM
[2024-10-09] MEDS: oxyCODONE-APAP 10-325MG 1 EACH TAB PO PRN (08:44)
--- NOTE | 2024-10-09 11:20 | P.PN ---
Subjective Progress Note Date: 10/09/24 Principal diagnosis: Stage III neuroendocrine tumor right lung with severe right chest wall pain, evaluate for stage IV pleural disease based on suspicious PET scan. History of large pericardial effusion status post pericardial window 05/2024, paroxysmal atrial fibrillation on [facility] outpatient for anticoagulation, COVID in 2022, GERD, previous tobacco dependence with recent cessation POD #1 right thoracoscopy with pleural biopsy The patient was seen and examined initially sitting up in bed on the cardiac stepdown unit. She stated her post surgical expected pain was not completely controlled even on dilaudid [employer]. She was helped to ambulate to the bathroom, then returned to the recliner. CXR was reviewed, no PTX present. Right pleural chest tube was discontinued without incident. Remains in sinus rhythm, hemodynamically stable. Currently on room air. No other new concerns. Objective - Vital Signs Vital signs: Vital Signs Temp 97.3 F L 10/09/24 08:03 Pulse 78 10/09/24 08:28 Resp 20 10/09/24 08:03 BP 144/94 10/09/24 08:03 Pulse Ox 93 L 10/09/24 08:18 FiO2 Intake & Output 10/08/24 10/09/24 10/09/24 18:59 06:59 18:59 Intake Total 1550 150 Output Total 10 43 Balance 1540 -43 150 Weight 62.2 kg 65.5 kg Intake: IV 1550 Oral 150 Output: Chest Tube Drainage 43 Chest Tube Right 43 Estimated Blood Loss 10 Other: Voiding Method External Catheter External Catheter - Exam CONSTITUTIONAL: Appears uncomfortable, cooperative, no acute distress but does complain of pain RESPIRATORY: Lungs sounds diminished bilaterally. Respirations even, nonlabored. Currently on room air with oxygen saturation 93% CARDIOVASCULAR: S1, S2 present. Regular rate and rhythm, sinus rhythm on telemetry. Palpable peripheral pulses bilaterally. No edema present. No calf pain or tenderness noted. SCDs present. GASTROINTESTINAL: Abdomen soft, nontender, nondistended. Active bowel sounds present 4 quadrants. Tolerating diet GENITOURINARY: Continues to void clear, yellow urine INTEGUMENTARY: Skin is warm and dry with evidence of good perfusion. Thoracic incision well approximated and covered with dry intact dressing. NEUROLOGIC: Cranial nerves II through XII intact MUSKULOSKELETAL: Able to move all extremities, strength equal bilaterally, gait normal PSYCHIATRIC: Alert and oriented to person place and time, appropriate affect, intact judgment and insight INVASIVE LINES AND TUBES: Right pleural chest tube was present to water seal, no air leak present, 60 mL total output in atrium since surgery. Discontinued without incident - Allied health notes Allied health notes reviewed: nursing - Labs CBC & Chem 7: 10/09/24 05:44 10/09/24 05:44 Labs: Abnormal Lab Results - Last 24 Hours (Table) 10/09/24 10/09/24 Range/Units 05:44 05:44 WBC 14.7 H (3.8-10.6) k/uL MCHC 30.1 L (31.0-37.0) g/dL Neutrophils # 12.3 H (1.3-7.7) k/uL Sodium 134 L (137-145) mmol/L Chloride 94 L (98-107) mmol/L Carbon Dioxide 32 H (22-30) mmol/L BUN 19 H (7-17) mg/dL - Imaging and Cardiology Chest x-ray: report reviewed, image reviewed Assessment and Plan Assessment: Stage III neuroendocrine tumor right lung with severe right chest wall pain, evaluate for stage IV pleural disease based on suspicious PET scan, status post right thoracoscopy with pleural biopsy History of large pericardial effusion status post pericardial window 05/2024 Paroxysmal atrial fibrillation on [facility] outpatient for anticoagulation COVID in 2022 GERD Previous tobacco dependence with recent cessation Plan: CT discontinued without incident Will repeat CXR at 13:30 Encourage incentive spirometry Increase activity, ambulate as tolerated Home percocet reordered, will DC [employer] Radiation oncology consulted Patient will likely be able to be dc'd to home this afternoon, however we may keep her overnight for to make sure we have good pain control CT dressing to remain in place for 48 hours, if becomes saturated RN instructed to reinforce
[2024-10-09 12:19] VITALS: RESP 18; TEMP 98.1
--- NOTE | 2024-10-09 13:39 | XR ---
EXAMINATION TYPE: XR chest 2V DATE OF EXAM: 10/09/2024 1:32 PM COMPARISON: Chest x-ray earlier today CLINICAL INDICATION: Female, 74 years old with history of post chest tube removal, TECHNIQUE: Frontal and lateral views of the chest are obtained. FINDINGS: Interval removal of right-sided chest tube without visualized pneumothorax. Persistent righ t basilar opacity. Left lung remains clear. Persistent mild cardiomegaly. The osseous structures ar e intact. IMPRESSION: No right-sided pneumothorax after chest tube removal. [facility], , 10/09/2024 1:36 PM
--- NOTE | 2024-10-09 13:57 | P.CNPUL ---
History of Present Illness Consult date: 10/09/24 Requesting physician: Oscar Wynn Reason for consult: other (Status post pleural biopsy) Chief complaint: Chest pain History of present illness: This is a 74-year-old female whom I met for the first time on 06/04/2024, patient presented back then with pericardial and moderate-sized left-sided pleural effusion. Patient was also noted at the time to have a suspicious right lower lobe nodule which has been monitored on outpatient basis by Dr. FADIA Murcia. Back then the patient underwent left-sided thoracentesis and pericardial window and both fluids were negative for malignancy. Patient was eventually discharged home and the fluid on the left side never came back. Patient had some eval uation by rheumatology, and I saw her on outpatient basis shortly after she was discharged. Raised concern about her right lower lobe nodule and recommended follow-up CT of the chest and PET scan. Follow-up CT of the chest showed a significant increase in the size of the right lower lobe nodule and she was also noted to have subcarinal lymphadenopathy. Hence malignancy was felt to be most likely unless proven otherwise. Patient was advised to have robotic Ion bronchoscopy and EBUS, this was done on 09/12/2024, patient was found to have positive lung biopsy for poorly differentiated carcinoma with inflammation and necrosis that is from the right lower lobe mass, and her station 7 was positive for poorly differentiated carcinoma also. Patient continues to have right-sided chest pain which seems to be severe, and her PET scan showed mostly areas of uptake/new areas within the posterior right lung and subcarinal as well as right hilar lymph nodes highly suspicious for metastatic disease. There was also some subtle intermediate signal within the anterolateral right pleural margin at the lung base hence the patient underwent pleural biopsy today for further documentation and confirmed pleural metastasis. This was done yesterday by Dr. Wynn, patient was admitted to the medical floor, and I was asked to see her on consultation. Today I had a chance to discuss the surgical findings by Dr. Wynn and I believe the patient has pleural metastasis unless proven otherwise. Her chest tube was removed today, patient may even be considered for discharge in the next 24 hours. Denies any cough denies any wheezing she continues to have severe right-sided chest wall pain. Review of Systems REVIEW OF SYSTEMS: CONSTITUTIONAL: Negative. EYES: Negative. ENT: Negative. CARDIAC: Negative. PULMONARY: As noted in HPI GI: Negative. GENITOURINARY: Negative. MUSCULOSKELETAL: Negative. SKIN: Negative. NEUROPSYCH: Negative. ENDOCRINE: Negative. HEMATOLOGIC: Negative. Past Medical History Past Medical History: Atrial Fibrillation, Eye Disorder, GERD/Reflux, Hypertension, Pneumonia Additional Past Medical History / Comment(s): hx migraines, gallstone, optic nerve damage tatiana eyes, pleural effusion & pericardial effusion May 2024 History of Any Multi-Drug Resistant Organisms: None Reported Past Surgical History: Breast Surgery Additional Past Surgical History / Comment(s): left breast lumpectomy x 2 "pr ecancerous", Bronchoscopy 08/2024 Past Anesthesia/Blood Transfusion Reactions: No Reported Reaction, Family History of Problems w/ Anesthesia Additional Past Anesthesia/Blood Transfusion Reaction / Comment(s): daughter has hard time coming out of anesthesia Past Psychological History: Depression Smoking Status: Former smoker Past Alcohol Use History: Rare Additional Past Alcohol Use History / Comment(s): quit smoking 2023; smoked on and off since age 23 Past Drug Use History: None Reported - Past Family History Brother(s) Family Medical History: Pulmonary Embolus Mother Additional Family Medical History / Comment(s): from Alzheimer's Father Additional Family Medical History / Comment(s): from unknown cause, possibly his heart Medications and Allergies Home Medications Medication Instructions Recorded Confirmed Type Apixaban [Eliquis] 5 mg PO BID 05/22/24 10/08/24 History Omeprazole [PriLOSEC] 20 mg PO AC-BRKFST 05/22/24 10/08/24 History Metoprolol Tartrate [Lopressor] 25 mg PO BID #90 tab 06/07/24 10/08/24 Rx Amiodarone HCl [Pacerone] 100 mg PO DAILY 09/11/24 10/08/24 History oxyCODONE-APAP 10-325MG [Percocet 1 tab PO Q4-6H PRN 10/07/24 10/08/24 History 10-325 mg] Allergies Allergy/AdvReac Type Severity Reaction Status Date / Time No Known Allergies Allergy Verified 10/08/24 09:45 Physical Exam Vitals: Vital Signs Temp Pulse Pulse Resp BP BP Pulse Ox 10/09/24 12:18 98.1 F 67 18 112/64 96 10/09/24 12:11 80 10/09/24 12:01 78 10/09/24 08:28 78 10/09/24 08:18 76 93 L 10/09/24 08:03 97.3 F L 76 20 144/94 93 L 10/09/24 03:27 98.2 F 81 16 176/80 100 10/09/24 00:13 98.2 F 85 16 167/92 100 10/08/24 21:28 98.1 F 86 16 167/83 100 10/08/24 19:04 96 16 162/92 100 10/08/24 17:50 83 16 139/69 100 10/08/24 17:45 96 16 127/61 98 10/08/24 17:15 78 16 128/63 98 10/08/24 16:45 93 16 149/70 99 10/08/24 16:15 78 16 125/72 98 10/08/24 15:45 80 16 131/60 97 10/08/24 15:15 85 18 137/63 98 10/08/24 14:42 84 16 124/67 98 10/08/24 14:27 87 14 148/71 98 10/08/24 14:12 82 16 167/73 98 10/08/24 13:57 84 14 173/69 98 Intake and Output 10/08/24 10/09/24 10/09/24 22:59 06:59 14:59 Intake Total 150 Output Total 20 23 Balance -20 -23 150 Intake: Oral 150 Output: Chest Tube Drainage 20 23 Chest Tube Right 20 23 Other: Voiding Method External Catheter External Catheter Toilet Weight 62.2 kg 65.5 kg General: Revealed 74-year-old female pleasant in no distress, at bedside patient is on room air Skin: Skin is warm and dry and no rashes or lesions are noted. Eye: Pupils are equal, round and reactive to light, extra-ocular movements are intact; there is normal conjunctiva bilaterally. Ears, nose, mouth and throat: There are moist mucous membranes and no oral lesions. Neck: The neck is supple, there is no tenderness or JVD. Cardiovascular: There is a regular rate and rhythm. No murmur, rub or gallop is appreciated. Respiratory: Clear bilaterally no rhonchi no wheezes Gastrointestinal: Soft, non-distended, non-tender abdomen without masses or organomegaly noted. There is no rebound or guarding present. Bowel sounds are unremarkable. Musculoskeletal: Normal ROM, no tenderness, Neurological: CN II-XII intact, Cranial nerves III through XII are intact. No gross focal neurologic deficit Psychiatric: Normal mood, affect and no mental status examination Results - Laboratory Findings CBC and BMP: 10/09/24 05:44 10/09/24 05:44 Abnormal lab findings: Abnormal Labs 10/09/24 10/09/24 05:44 05:44 WBC 14.7 H MCHC 30.1 L Neutrophils # 12.3 H Sodium 134 L Chloride 94 L Carbon Dioxide 32 H BUN 19 H - Diagnostic Findings Chest x-ray: image reviewed (No evidence of right-sided chest tube after chest tube removal right basilar opacity noted left lung is clear.) Assessment and Plan Assessment: Impression: Postoperative day #1 right thoracoscopy with right pleural biopsy Stage IV adenocarcinoma right lung with severe right chest wall pain History of left-sided pleural effusion requiring thoracentesis back in May but no recurrence History of pericardial effusion requiring pericardial window Paroxysmal atrial fibrillation, on Eliquis Ex-smoker History of GERD Recommendation: Discussed and reviewed with the patient her condition so far. Discussed and reviewed with the patient Dr. Wynn's operative findings Advised patient to wait for the results of the pleural biopsy but highly suspicious for metastatic disease to the pleura Continue pain medications/Percocet Continue incentive spirometry Will clear the patient for discharge today if cleared by other consultants Patient to see me on outpatient basis for follow-up Patient to follow-up with Dr. Rueda for treatment of her metastatic alisha nocarcinoma. Time with Patient: Greater than 30
[2024-10-09] MEDS: LIDOCAINE 4% PATCH TOPICAL SCH (14:50)
[2024-10-09 16:10] VITALS: BP 130/71
[2024-10-09 16:18] VITALS: PULSE 68
--- NOTE | 2024-10-10 14:45 | P.DS ---
Providers Expected date of discharge: 10/09/24 Attending physician: Oscar Wynn Consults: 10/08/24 14:45 Consult Physician Urgent Consulting Provider: Tyson Shaver Consult Reason/Comments: lung cancer w/ pleural metastasis Do you want consulting provider notified?: Yes 10/08/24 18:48 Consult Physician Routine Consulting Provider: Sebastian Landry Reason/Comments: lung biopsy Do you want consulting provider notified?: Yes Primary care physician: Osmin Heller [facility] Course: FINAL DIAGNOSIS: Stage III neuroendocrine tumor right lung with severe right chest wall pain, evaluate for stage IV pleural disease based on suspicious PET scan History of large pericardial effusion status post pericardial window 05/2024 Paroxysmal atrial fibrillation on Eliquis outpatient for anticoagulation COVID in 2022 GERD Previous tobacco dependence with recent cessation PRINCIPAL PROCEDURE: Right thoracoscopy with pleural biopsy HISTORY OF PRESENT ILLNESS: This is a 74-year-old female who follows outpatient with Dr. Heller for internal medicine, Dr. Landry for pulmonology, and Dr. Moser for oncology. She is known to our service from May for large pericardial effusion with pericardial window by Dr. Wynn. 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 PET scan demonstrated marked uptake in the right hilum as well as in the subcarinal lymph node which was markedly enlarged consistent with stage IIIa disease. She also had subtle uptake in the anterior sixth rib on the pleural side. CT scan did not show any mass or evidence of rib abnormality so significance was not clear, however the patient has continued to complain of severe right lower chest pain radiating from the front to the back possibly consistent with pleural or bony metastasis. The patient was referred to Dr. Wynn from cardiothoracic surgery. She was recommended to undergo thoracoscopic pleural biopsy. The usual perioperative course was discussed in detail with the patient and her family, all risks and benefits were explained, all questions were answered, and consent was obtained to proceed with surgery. The patient was scheduled for surgery at the earliest possible date. HOSPITAL COURSE: The patient was brought to the hospital on 10/08/24, taken to the preoperative area, prepared in the usual fashion, and subsequently taken to the operating room where Dr. Wynn performed right thoracoscopy with pleural biopsy. Upon completion of surgery the patient was extubated and taken to the recovery room. She was eventually admitted to 3 S. cardiac stepdown unit for further hemodynamic monitoring and pain control. There was no airleak in her chest tube and it was placed to waterseal the night of surgery. The following morning repeat chest x-ray was satisfactory, though there was no airleak in her chest tube and it was discontinued without incident. Follow-up chest x-ray demonstrated no pneumothorax. Her pain was eventually controlled. Her oxygen was titrated down, she was tolerating oral diet, she was ambulatory without difficulty, and she was ready to be discharged to home on postoperative day #1. She received written and verbal instruction regarding her medications, activity restrictions, signs and symptoms requiring physician notification, and follow-up appointments. Patient Condition at Discharge: Stable Plan - Discharge Summary Discharge Rx Participant: No New Discharge Prescriptions: New Lidocaine 4% Patch 1 patch TOPICAL DAILY patch Continue Metoprolol Tartrate [Lopressor] 25 mg PO BID #90 tab Omeprazole [PriLOSEC] 20 mg PO AC-BRKFST Apixaban [Eliquis] 5 mg PO BID Amiodarone HCl [Pacerone] 100 mg PO DAILY oxyCODONE-APAP 10-325MG [Percocet 10-325 mg] 1 tab PO Q4-6H PRN #90 tab PRN Reason: Pain Discharge Medication List Apixaban [Eliquis] 5 mg PO BID 05/22/24 [History] Omeprazole [PriLOSEC] 20 mg PO AC-BRKFST 05/22/24 [History] Metoprolol Tartrate [Lopressor] 25 mg PO BID #90 tab 06/07/24 [Rx] Amiodarone HCl [Pacerone] 100 mg PO DAILY 09/11/24 [History] Lidocaine 4% Patch 1 patch TOPICAL DAILY patch 10/09/24 [Rx] oxyCODONE-APAP 10-325MG [Percocet 10-325 mg] 1 tab PO Q4-6H PRN #90 tab 10/09/24 [Rx] Follow up Appointment(s)/Referral(s): Sebastian Landry MD [STAFF PHYSICIAN] - 10/23/24 2:15 pm Reno Moser [STAFF PHYSICIAN] - 1 Week Oscar Wynn MD [STAFF PHYSICIAN] - 10/16/24 2:15 pm Osmin Heller DO [Primary Care Provider] - As Needed Tyson Shaver MD [STAFF PHYSICIAN] - 1 Week Activity/Diet/Wound Care/Special Instructions: DISCHARGE INSTRUCTIONS: 1. No driving for 2 weeks, or until physician gives their ok. 2. No lifting, pushing, or pulling more than 10 pounds for 2 weeks. The physician will advise of any restriction changes. 3. Continue pain control per as needed orders. Alternate acetaminophen (Tylenol) and ibuprofen (Motrin/Advil) for pain. 4. Continue with incentive spirometry and splinting until otherwise directed by the physician. 5. Leave chest tube dressing for 48 hours. After that, remove all dressings and shower daily. 6. Routine incision care. No powders, lotions, ointments on incisions. 7. Please call surgeon/[employer] for temp greater than 101 F or purulent drainage from incisions. 8. Smoking cessation counseling and program information provided. Quitting smoking is the most important step you can take to improve your health. For additional information and assistance to quit smoking, please call the [place] tobacco quit line (6-271-TQXX-NOW/ ) or online: [email or web address].gov/[email or web address]-[email or web address] [email or web address]-[email or web address] Discharge Disposition: HOME SELF-CARE
== END 2024-10-09 17:01 | disposition home or self-care (01) ==
LOC: OR 09:06 → EDSTATUS 12:30 → 3SCARD 17:59 → OR 10-09 17:01
PROVIDERS: ATTEND Thoracic Surgery (Cardiothoracic Vascular Surgery)
DX: C34.31 Malignant neoplasm of lower lobe, right bronchus or lung (principal); C7A.1 Malignant poorly differentiated neuroendocrine tumors; J90 Pleural effusion, not elsewhere classified; I48.91 Unspecified atrial fibrillation; I10 Essential (primary) hypertension; K21.9 Gastro-esophageal reflux disease without esophagitis; G43.909 Migraine, unspecified, not intractable, without status migrainosus; Z79.899 Other long term (current) drug therapy; Z87.891 Personal history of nicotine dependence
CPT/HCPCS: 94640 ×2; 94760; 88305; 80048; 85025; 71045 ×2; 71046; 32609; C1729; J2250; J0330; J0360; J1100; J2710; J0690 ×2; J2405; J2003; J3010; J1171 ×3; J1885 ×2; J2704; J0665; J1920; J1596

== ENCOUNTER 2024-10-19 18:57 | Emergency (ER) | payer MEDICARE ==
[2024-10-19 19:07] VITALS: RESP 18; TEMP 98.7
--- NOTE | 2024-10-19 19:58 | ED ---
General Adult HPI - General Chief complaint: Chest Pain Stated complaint: right side body pain Time Seen by Provider: 10/19/24 19:17 Source: patient Mode of arrival: ambulatory Limitations: no limitations - History of Present Illness Initial comments: This patient is a 74-year-old woman with history of breast cancer, currently being treated. She complains of having a flareup of the cancer pain. The patient is due to see the oncologist tomorrow. She denies associated symptoms, no dyspnea, diaphoresis, nausea or vomiting. -: hour(s) Location: chest Radiation: non-radiation Quality: aching, sharp Consistency: constant Improves with: none Worsens with: movement Associated Symptoms: denies other symptoms - Related Data Home Medications Medication Instructions Recorded Confirmed Apixaban [Eliquis] 5 mg PO BID 05/22/24 10/08/24 Omeprazole [PriLOSEC] 20 mg PO AC-BRKFST 05/22/24 10/08/24 Amiodarone HCl [Pacerone] 100 mg PO DAILY 09/11/24 10/08/24 Previous Rx's Medication Instructions Recorded Metoprolol Tartrate [Lopressor] 25 mg PO BID #90 tab 06/07/24 Lidocaine 4% Patch 1 patch TOPICAL DAILY patch 10/09/24 oxyCODONE-APAP 10-325MG [Percocet 1 tab PO Q4-6H PRN #90 tab 10/09/24 10-325 mg] Allergies Allergy/AdvReac Type Severity Reaction Status Date / Time No Known Allergies Allergy Verified 10/08/24 09:45 Review of Systems ROS Statement: Those systems with pertinent positive or pertinent negative responses have been documented in the HPI. ROS Other: All systems not noted in ROS Statement are negative. Constitutional: Denies: fever, chills, weakness Respiratory: Denies: cough, dyspnea Cardiovascular: Reports: chest pain. 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, lymph History of Any Multi-Drug Resistant Organisms: None Reported Past Surgical History: Breast Surgery Additional Past Surgical History / Comment(s): left breast lumpectomy x 2 "precancerous" Past Anesthesia/Blood Transfusion Reactions: No Reported Reaction, Family History of Problems w/ Anesthesia Additional Past Anesthesia/Blood Transfusion Reaction / Comment(s): daughter has hard time coming out of anesthesia Past Psychological History: Depression Smoking Status: Former smoker Past Alcohol Use History: Rare Past Drug Use History: None Reported - Past Family History Brother(s) Family Medical History: Pulmonary Embolus Mother Additional Family Medical History / Comment(s): from Alzheimer's Father Additional Family Medical History / Comment(s): from unknown cause, possibly his heart General Exam Limitations: no limitations General appearance: alert, in no apparent distress Head exam: Present: atraumatic, normocephalic Eye exam: Present: normal appearance. Absent: scleral icterus, conjunctival injection Neck exam: Present: normal inspection Respiratory exam: Present: normal lung sounds bilaterally, chest wall tenderness. Absent: respiratory distress, wheezes, rales, rhonchi, stridor, accessory muscle use Cardiovascular Exam: Present: regular rate, normal rhythm, normal heart sounds. Absent: systolic murmur, diastolic murmur, rubs, gallop GI/Abdominal exam: Present: soft. Absent: distended, tenderness, guarding, rebound, rigid, mass Extremities exam: Present: normal inspection, normal capillary refill. Absent: pedal edema, calf tenderness Back exam: Present: normal inspection. Absent: CVA tenderness (R), CVA tenderness (L), vertebral tenderness Neurological exam: Present: alert Skin exam: Present: warm, dry, intact, normal color. Absent: rash Course Vital Signs 10/19/24 10/19/24 19:02 21:27 Temperature 98.7 F Pulse Rate 86 75 Respiratory 18 18 Rate Blood Pressure 173/81 129/66 O2 Sat by Pulse 98 98 Oximetry EKG Findings - EKG Comments: EKG Findings:: Low voltage QRS complex. - EKG Results: EKG: interpreted by ERMD, sinus rhythm (With occasional supraventricular complexes rate 83 bpm), normal axis Medical Decision Making - Medical Decision Making Was pt. sent in by a medical professional or institution (Dr., PA, [employer] SUPERVISOR, urgent care, hospital, or detention...) When possible be specific @ -[No] Did you speak to anyone other than the patient for history (EMS, parent, family, police, friend...)? What history was obtained from this source @ -[No] Did you review nursing and triage notes (agree or disagree)? Why? @ -[I reviewed and agree with nursing and triage notes] Were old charts reviewed (outside hosp., previous admission, EMS record, old EKG, old radiological studies, urgent care reports/EKG's, detention records)? Report findings @ -[No old charts were reviewed] Differential Diagnosis (chest pain, altered mental status, abdominal pain women, abdominal pain men, vaginal bleeding, weakness, fever, dyspnea, syncope, headache, dizziness, GI bleed, back pain, seizure, CVA, palpatations, mental h ealth, musculoskeletal)? @ -[Differential Chest Pain: Stable Angina, Unstable Angina, STEMI, NSTEMI Aortic Dissection, Pneumothorax, Musculoskeletal, Esophageal Spasm GERD, Cholecystitis, Pancreatitis, Zoster, this is not meant to be an all-inclusive list. EKG interpreted by me (3pts min.). @ -[As above] X-rays interpreted by me (1pt min.). @ -[None done] CT interpreted by me (1pt min.). @ -[None done] U/S interpreted by me (1pt. min.). @ -[None done] What testing was considered but not performed or refused? (CT, X-rays, U/S, labs)? Why? @ -[None] What meds were considered but not given or refused? Why? @ -[None] Did you discuss the management of the patient with other professionals (professionals i.e. CHARISSE Wisdom, [employer] SUPERVISOR, lab, RT, psych nurse, social service coordinator, yard coordinator, teacher, engineering officer, casework specialist)? Give summary @ -[No] Was smoking cessation discussed for >3mins.? @ -[No] Was critical care preformed (if so, how long)? @ -[No] Were there social determinants of health that impacted care today? How? (Homelessness, low income, unemployed, alcoholism, drug addiction, transportation, low edu. Level, literacy, decrease access to med. care, detention, rehab)? @ -[No] Was there de-escalation of care discussed even if they declined (Discuss DNR or withdrawal of care, Hospice)? DNR status @ -[No] What co-morbidities impacted this encounter? (DM, HTN, Smoking, COPD, CAD, Cancer, CVA, ARF, Chemo, Hep., AIDS, mental health diagnosis, sleep apnea, morbid obesity)? @ -[Cancer Was patient admitted / discharged? Hospital course, mention meds given and route, prescriptions, significant lab abnormalities, going to OR and other pertinent info. @ -[Patient is 74-year-old woman here requesting pain relief from her cancer pain. The patient states this is definitely same pain she has had. She is not having associated dyspnea. Given that she has follow-up with her oncologist tomorrow we did provide some analgesia, she was feeling better and wanted to go home. Discussed appropriate return parameters Undiagnosed new problem with uncertain prognosis? @ -[No] Drug Therapy requiring intensive monitoring for toxicity (Heparin, Nitro, Insulin, Cardizem)? @ -[No] Were any procedures done? @ -[No] Diagnosis/symptom? @ -[Chest pain due to cancer Acute, or Chronic, or Acute on Chronic? @ -[Acute on chronic Uncomplicated (without systemic symptoms) or Complicated (systemic symptoms)? @ -[Uncomplicated Side effects of treatment? @ -[No] Exacerbation, Progression, or Severe Exacerbation? @ -[No] Poses a threat to life or bodily function? How? (Chest pain, [place], NM, pneumonia, PE, COPD, DKA, ARF, appy, cholecystitis, CVA, Diverticulitis, Homicidal, Suicidal, threat to staff... and all critical care pts) @ -[Yes cancer does pose threat to life All treatments are based on ideal body weight as in ED triage Disposition Clinical Impression: Chest pain Disposition: HOME SELF-CARE Condition: Good Instructions (If sedation given, give patient instructions): Chest Pain (ED) Is patient prescribed a controlled substance at d/c from ED?: No Referrals: Osmin Heller DO [Primary Care Provider] - 1-2 days
[2024-10-19] MEDS: KETOROLAC 15 MG/ML 1 ML VIAL IVP STA (20:18)
[2024-10-19] MEDS: HYDROmorphone 1 MG/ML 1 ML SYRINGE IVP STA (20:19)
[2024-10-19 21:28] VITALS: BP 129/66; PULSE 75
== END 2024-10-19 21:28 | disposition home or self-care (01) ==
LOC: EC 18:57
DX: G89.3 Neoplasm related pain (acute) (chronic) (principal); Z85.3 Personal history of malignant neoplasm of breast; Z87.891 Personal history of nicotine dependence
CPT/HCPCS: 99285; 96374; 96375; J1171; J1885

== ENCOUNTER → 2024-11-27 | Outpatient (CLI) | payer MEDICARE ==
[2024-11-27 10:04] VITALS: BP 108/79; PULSE 94; RESP 16
--- NOTE | 2024-11-27 15:12 | P.PAINPG ---
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 Pt states pain level is provoked at 9 /10 in intensity, constant, localized in the R ribs, sharp in character without shooting pain. Pain is provoked by any movement. Pain is alleviated by medications, topical, repositioning and rest . PMH: OA, aFib, GERD, HTN, MDD, Lung CA PSH: BL Optic Nerve Damage, L Lumpectomy x2, Bronchoscopy (2024) SH: Former tobacco user, Rare ETOH use, No illicit drug use FH: Bro- PE. Mo- Alzheimer's. Fa- CAD All: See list Meds: See list including [place] 10/325mg, Tramadol, Lidoderm REVIEW OF ORGAN SYSTEMS: CONSTITUTIONAL: No fevers or chills. No recent weight loss. NEUROLOGICAL: + numbness and tingling along the distal extremities. No seizure disorders or headaches. MUSCULOSKELETAL: + pain PSYCHIATRIC: Denies current depression or suicidal thoughts. Physical Examinations : Constitutional : Cooperative , not in acute distress . Neurologic : Cranial nerve II to XII intact. No focal neurological deficits. Psychiatric : alert & oriented x 3. Matching mood & appropriate affect. Judgment & insight intact. Musculoskeletal : Cervical Spine Motor strength in the deltoid and biceps: Normal right side. Normal Left side Motor strength biceps and the wrist extensors: Normal right side . Normal left side Motor strength in the triceps muscle: Normal right side. Normal left side Deep tendon reflexes: Normal at the biceps. Normal at Brachioradialis. Normal at triceps Vertebral body tenderness to deep palpation over Cervical facet loading test: positive b ilaterally Spurling test: positive bilaterally Neck distraction test: positive bilaterally Yonathan sign: positive bilaterally Lumbar spine Motor strength lower extremities ,thigh and legs 5/5 Right side , 5/5 Left side Deep tendon reflexes : Normal Knee Jerk. Normal Ankle Jerk Vertebral body tenderness over Patiño Test positive Lumbar facet Loading Test: positive Right / positive Left Range of motion of the lumbar spine Flexion 30 degrees, extension 10 degrees Straight Leg Raise test: Left/ Right positive at degrees León test: positive right / positive left. Severe tenderness over the Sacroiliac joint on the Right / Left sides Gaenslen test: positive bilaterally Seated flexion test: positive bilaterally. Sacral spine : Severe tenderness over the Sacroiliac joint: right side / left side Range of motion: Flexion of the lumbar spine <60 degrees Range of motion: Extension of the lumbar spine <20 degrees Gaenslen's Test positive León test: positive right side / left side Thigh Thrust Test Sacral Thrust Test Imaging: CT non contrast chest from 09/12/24 reviewed Assessment/ Plan : R rib pain secondary to R Lung CA Recommendation of medication management. Would benefit from R intercostal nerve block #1. Risk, benefits of procedure discussed and patient verbalized understanding. Protocol for discontinuation/continuation of medications surrounding procedure discussed. Use, side effects, adverse reactions and safe storage discussed. Opiate/narcotic agreement . All questions answered. I have spent greater than 30 minutes on patient care today. Dr Goldman was available by phone for the evaluation of this patient. The time was used to review the medical records including relevant urine studies and Prescription history (MAPs), review of the available imaging, evaluation and examination of the patient, coordination of care with the medical staff and if applicable referring physicians, as well as creation of the medical record Home Medications: Ambulatory Orders Apixaban [Eliquis] 5 mg PO BID 05/22/24 Omeprazole [PriLOSEC] 20 mg PO AC-BRKFST 05/22/24 Metoprolol Tartrate [Lopressor] 25 mg PO BID #90 tab 06/07/24 Amiodarone HCl [Pacerone] 100 mg PO DAILY 09/11/24 Lidocaine 4% Patch 1 patch TOPICAL DAILY patch 10/09/24 oxyCODONE-APAP 10-325MG [Percocet 10-325 mg] 1 tab PO Q4-6H PRN #90 tab 10/09/24 Controlled Substance Measures - Controlled Substance Measures Is patient prescribed a controlled substance at discharge?: Yes When asked, does pt state using other controlled substances?: Yes If prescribed controlled substance>3 days was MAPS reviewed?: Yes If Rx opioid, was Start Talking consent form obtained?: Yes Was information provided regarding opioid addiction?: Yes
== END ==
LOC: PNWHC3 07:51
PROVIDERS: ATTEND Anesthesiology
DX: R07.81 Pleurodynia (principal); C34.91 Malignant neoplasm of unspecified part of right bronchus or lung; Z87.891 Personal history of nicotine dependence
CPT/HCPCS: 99211

== ENCOUNTER 2024-11-29 09:54 | Inpatient (IN) | payer MEDICARE ==
[2024-11-29] MEDS: SODIUM CHLORIDE 0.9% 1,000 ML IV ONE (11:08)
[2024-11-29] MEDS: SODIUM CHLORIDE 0.9% 500 ML 500 ML IV ONE (11:08)
[2024-11-29] MEDS: ONDANSETRON 4 MG/2 ML VIAL IVP STA ×2 (11:10→13:19)
--- NOTE | 2024-11-29 11:36 | XR ---
Chest, 2 view. CLINICAL INDICATION: Female, 74 years old with history of Weakness COMPARISON: 10/09/2024 TECHNIQUE: PA and lateral views the chest are obtained. FINDINGS: There is a small focal airspace consolidation in the right middle lobe likely a small focal pneumonic infiltrate. Left lung is clear. There is no pleural effusion or pneumothorax. The heart and pulmonary vasculature are normal. The osseous structures are intact. IMPRESSION: Small right middle lobe infiltrate likely a pneumonic infiltrate. Short-term follow-up to resolution is recommended. [facility], , 11/29/2024 11:33 AM
[2024-11-29 11:42] LABS: Partial Thromboplastin Time 23.5 sec (22.0-30.0); Prothrombin Time 11.5 sec (10.0-12.5)
[2024-11-29 11:45] LABS: ALT 29 U/L (4-34); AST 53 U/L (14-36); African American GFR (CKD) 70 (>60 ml/min/1.73 sqM); Albumin 3.7 g/dL (3.5-5.0); Alkaline Phosphatase 136 U/L (38-126); Anion Gap 11 mmol/L; Blood Urea Nitrogen 25 mg/dL (7-17); Calcium 9.1 mg/dL (8.4-10.2); Carbon Dioxide 40 mmol/L (22-30); Chloride 82 mmol/L (98-107); Glucose 115 mg/dL (74-99); Magnesium 1.4 mg/dL (1.6-2.3); Non-African American GFR(CKD) 60 (>60 ml/min/1.73 sqM); Sodium 133 mmol/L (137-145); Total Bilirubin 1.4 mg/dL (0.2-1.3); Total Protein 5.9 g/dL (6.3-8.2)
[2024-11-29 11:54] LABS: Basophils # (A) 0.22 10*3/uL (0.00-0.10); Basophils % (A) 0.7 %; Eosinophils # (A) 0.01 10*3/uL (0.04-0.35); HCT 43.2 % (37.2-46.3); HGB 14.4 g/dL (12.0-15.0); Lymphocytes # (A) 0.89 10*3/uL (0.90-5.00); Lymphocytes % (A) 2.7 %; MCH 29.9 pg (27.0-32.0); MCHC 33.3 g/dL (32.0-37.0); MCV 89.8 fL (80.0-97.0); Mean Platelet Volume 10.8 fL (9.5-12.2); Monocytes # (A) 0.03 10*3/uL (0.20-1.00); Monocytes % (A) 0.1 %; Neutrophils # (A) 28.27 10*3/uL (1.80-7.70); Neutrophils % (A) 86.5 %; Platelet Count 427 10*3/uL (140-440); RBC 4.81 10*6/uL (4.10-5.20); RDW 14.6 % (11.5-14.5); WBC 32.68 10*3/uL (4.50-10.00)
[2024-11-29 12:00] LABS: Potassium 2.3 mmol/L (3.5-5.1)
[2024-11-29 12:08] LABS: Influenza A Not Detected (Not Detectd); Influenza B Not Detected (Not Detectd); RSV Not Detected (Not Detectd)
[2024-11-29 12:27] LABS: Appearance,Urine Cloudy (Clear); Bacteria,Urine Rare /hpf; Bilirubin,Urine 1+ (Negative); Blood,Urine Small (Negative); Color,Urine Yellow; Glucose,Urine (UA) 1+ (Negative); Leukocyte Esterase,Urine Large (Negative); Mucus,Urine Rare /hpf; Nitrite,Urine Negative (Negative); PH, Urine 6.5 (5.0-8.0); Protein,Urine 1+ (Negative); RBC,Urine 19 /hpf (0-5); Specific Gravity,Urine 1.014 (1.001-1.035); Squamous Epithelial Cell,Urine 6 /hpf (0-4); Urobilinogen,Urine <2.0 mg/dL (<2.0); WBC,Urine 40 /hpf (0-5)
[2024-11-29 12:37] LABS: Ketones,Urine 3+ (Negative)
[2024-11-29] MEDS ORDERED: VANCOMYCIN IV PER PHARMACY 1 EACH MISC MISCELLANE PRN (12:39)
[2024-11-29] MEDS ORDERED: Potassium Replacement Protocol 1 EACH MISC MISCELLANE PRN (12:44)
[2024-11-29] MEDS ORDERED: NALOXONE 0.4 MG/ML 1 ML VIAL IV PRN (13:14)
[2024-11-29] MEDS: POTASSIUM CHLORIDE ER 20 MEQ TAB.ER PO SCH (13:18)
[2024-11-29] MEDS: traMADol 50 MG TAB PO STA (13:18)
[2024-11-29] MEDS: MAGNESIUM SULFATE-D5W PMX 1 GM in DEXTROSE/WATER 1 100ML.BAG IVPB ONE (13:21)
[2024-11-29] MEDS: LACTATED RINGERS 1,000 ML IV SCH (13:25)
[2024-11-29] MEDS: CEFEPIME 2 GM in SODIUM CHLORIDE 0.9% 100 ML IVPB ONE (13:39)
[2024-11-29] MEDS: LOPERAMIDE 2 MG CAP PO ONE (14:03)
[2024-11-29] MEDS: VANCOMYCIN 1,000 MG in SODIUM CHLORIDE 0.9% 250 ML IVPB ONE (14:25)
--- NOTE | 2024-11-29 14:42 | P.HPIM ---
History of Present Illness H&P Date: 11/29/24 74 year old F with PMH of lung malignancy, AFib not on AC, h/o tobacco abuse presents to the ED for generalized weakness. She is currently undergoing chemotherapy and radiation, her last session was on Sunday. Patient reports profound weakness that started on associated with chills and hot sweats. She reports 2 episodes on NBNB N/V and 2 episodes of diarrhea that started today. She reports positional lightheadedness. Also reports decreased appetite. These symptoms prompted her to come to the ED. She denies any headache, LE edema, cough, chest pain, shortness of breath, palpitations, changes in urination. She denies numbness or tinging of the extremities. In the ED she underwent extensive evaluation. BP 92/65, HR 100, T 97.6F, RR 18, 92% on RA. CBC, Coag panel, CMP significant for WBC 32.68, Na 133, K 2.3, Cl 92, bicarb 40, BUN 25, glu 115, T. Bili 1.4, AST 53, alk phos 136, total protein 5.9. UA large LE with 40 WBCs. Lactic acid 3.1. COVID, RSV, Flu neg. CXR small right mi ddle lobe infiltrate. Patient was given 2L NS bolus, Vancomycin/Cefepime, Zofran and admitted for further workup and management. General: no distress, appears older than stated age Derm: warm, dry Head: atraumatic, normocephalic, symmetric Mouth: no lip lesion, mucus membranes moist Cardiovascular: S1 S2 tachy. No murmur. Lungs: Clear to auscultation bilaterally, no accessory muscle use Ext: no gross muscle atrophy, no edema, no contractures Neuro: No focal neurologic deficits. Psych: Alert and oriented. Based on my assessment of this patient, this patient meets a high complexity level of care. SIRS versus Sepsis: Leukocytosis, tachycardia on admission. No obvious source of infection. UA large LE with 40 WBC but patient asymptomatic. CXR concerning for right middle lobe infiltrate (also the location for malignancy). Started on Vancomycin dosed per pharmacy and Cefepime 2g IV BID. Follow BCx + UCx. Start LR at 130 cc/hr. Telemetry monitoring. Maintain MAP > 65. Oncology consult. Lactic acidosis: Likely due to above versus malignancy. IV hydration as above. Trend until negative. Hypokalemia: KCl 60 meq PO x 1. Repeat in the AM. Prerenal azotemia, hypoCl hypoNa and metabolic alkalosis: Likely due to severe dehydration. IV hydration as above. Hypomagnesemia: Mag sulfate 1g IV x 1. Repeat in the AM. Hyperbilirubinemia with transaminitis: Likely due to dehydration. IV hydration as above. Abdomen is benign. Consider Liver/GB imaging if labs dont improve by tomorrow. Lung malignancy: Oncology consult. History of AFib: Not on any blood thinners or rate control/ anti-arrhythmics. CODE STATUS: FULL CODE. DVT Prophylaxis: Lovenox SQ GI Prophylaxis: Designated medical POA if patient is not able to make medical decisions for themselves: Daughters I have reviewed the following search engine optimization consultant notes: ED note. I have reviewed the results of the following tests: As above. I have ordered the following tests: As above. I have discussed the care of this patient with the following independent historian: I have independently interpreted the following test below: CXR I have discussed the management of this patient with the following physician: Dr. 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, lymph History of Any Multi-Drug Resistant Organisms: None Reported Past Surgical History: Breast Surgery Additional Past Surgical History / Comment(s): left breast lumpectomy x 2 "precancerous" Past Anesthesia/Blood Transfusion Reactions: No Reported Reaction, Family History of Problems w/ Anesthesia Additional Past Anesthesia/Blood Transfusion Reaction / Comment(s): daughter has hard time coming out of anesthesia Past Psychological History: Depression Smoking Status: Former smoker Past Alcohol Use History: Rare Past Drug Use History: None Reported - Past Family History Brother(s) Family Medical History: Pulmonary Embolus Mother Additional Family Medical History / Comment(s): from Alzheimer's Father Additional Family Medical History / Comment(s): from unknown cause, possibly his heart Medications and Allergies Home Medications Medication Instructions Recorded Confirmed Type HYDROcodone/APAP 10-325MG [[place] 1 tab PO TID PRN 30 Days #90 tab 11/27/24 11/29/24 Rx 10-325] traMADol HCL 50 mg PO Q6H PRN 30 Days #90 tab 11/27/24 11/29/24 Rx Ondansetron [Zofran] 4 - 8 mg PO Q4H PRN 11/29/24 11/29/24 History Allergies Allergy/AdvReac Type Severity Reaction Status Date / Time No Known Allergies Allergy Verified 11/29/24 13:04 Physical Exam Vitals: Vital Signs Temp Pulse Resp BP Pulse Ox 11/29/24 14:04 97.8 F 91 18 139/76 100 11/29/24 11:12 97.8 F 59 L 16 103/53 100 11/29/24 10:02 97.6 F 100 18 92/65 92 L Intake and Output 11/28/24 11/29/24 11/29/24 22:59 06:59 14:59 Other: Weight 51.256 kg Results CBC & Chem 7: 11/29/24 11:08 11/29/24 11:08 Labs: Abnormal Lab Results - Last 24 Hours (Table) 11/29/24 11/29/24 11/29/24 Range/Units 11:08 11:08 11:08 WBC 32.68 H (4.50-10.00) 10*3/uL Immature Gran # 3.26 H (0.00-0.04) 10*3/uL Neutrophils # 28.27 H (1.80-7.70) 10*3/uL Lymphocytes # 0.89 L (0.90-5.00) 10*3/uL Monocytes # 0.03 L (0.20-1.00) 10*3/uL Eosinophils # 0.01 L (0.04-0.35) 10*3/uL Basophils # 0.22 H (0.00-0.10) 10*3/uL Sodium 133 L (137-145) mmol/L Potassium 2.3 L* (3.5-5.1) mmol/L Chloride 82 L (98-107) mmol/L Carbon Dioxide 40 H (22-30) mmol/L BUN 25 H (7-17) mg/dL Glucose 115 H (74-99) mg/dL Plasma Lactic Acid Ezekiel (0.7-2.0) mmol/L Magnesium 1.4 L (1.6-2.3) mg/dL Total Bilirubin 1.4 H (0.2-1.3) mg/dL AST 53 H (14-36) U/L Alkaline Phosphatase 136 H (38-126) U/L Total Protein 5.9 L (6.3-8.2) g/dL Urine Appearance Cloudy H (Clear) Urine Protein 1+ H (Negative) Urine Glucose (UA) 1+ H (Negative) Urine Ketones 3+ H (Negative) Urine Blood Small H (Negative) Urine Bilirubin 1+ H (Negative) Ur Leukocyte Esterase Large H (Negative) Urine RBC 19 H (0-5) /hpf Urine WBC 40 H (0-5) /hpf Ur Squamous Epith Cells 6 H (0-4) /hpf Urine Bacteria Rare H (None) /hpf Urine Mucus Rare H (None) /hpf 11/29/24 Range/Units 11:08 WBC (4.50-10.00) 10*3/uL Immature Gran # (0.00-0.04) 10*3/uL Neutrophils # (1.80-7.70) 10*3/uL Lymphocytes # (0.90-5.00) 10*3/uL Monocytes # (0.20-1.00) 10*3/uL Eosinophils # (0.04-0.35) 10*3/uL Basophils # (0.00-0.10) 10*3/uL Sodium (137-145) mmol/L Potassium (3.5-5.1) mmol/L Chloride (98-107) mmol/L Carbon Dioxide (22-30) mmol/L BUN (7-17) mg/dL Glucose (74-99) mg/dL Plasma Lactic Acid Ezekiel 3.1 H* (0.7-2.0) mmol/L Magnesium (1.6-2.3) mg/dL Total Bilirubin (0.2-1.3) mg/dL AST (14-36) U/L Alkaline Phosphatase (38-126) U/L Total Protein (6.3-8.2) g/dL Urine Appearance (Clear) Urine Protein (Negative) Urine Glucose (UA) (Negative) Urine Ketones (Negative) Urine Blood (Negative) Urine Bilirubin (Negative) Ur Leukocyte Esterase (Negative) Urine RBC (0-5) /hpf Urine WBC (0-5) /hpf Ur Squamous Epith Cells (0-4) /hpf Urine Bacteria (None) /hpf Urine Mucus (None) /hpf
--- NOTE | 2024-11-29 14:49 | ED ---
General Adult HPI - General Chief complaint: Weakness Stated complaint: Body Weakness, Dizziness Time Seen by Provider: 11/29/24 10:40 Source: patient, family, RN notes reviewed, old records reviewed Mode of arrival: wheelchair Limitations: no limitations - History of Present Illness Initial comments: Patient is a 74-year-old female who presents emergency department complaining of weakness. Patient is a cancer patient, with breast cancer currently undergoing chemotherapy. Recently had chemotherapy within the last week. Also has a history of hypertension, atrial fibrillation. States she has been feeling weak over the last few days or so with decreased oral intake which is why she presents for evaluation. Denies any fevers or chills. Denies any abdominal pain, nausea, vomiting. Endorses chronic diarrhea. Denies chest pain or sh ortness of breath. Presents for further evaluation at this time. - Related Data Home Medications Medication Instructions Recorded Confirmed Ondansetron [Zofran] 4 - 8 mg PO Q4H PRN 11/29/24 11/29/24 Previous Rx's Medication Instructions Recorded HYDROcodone/APAP 10-325MG [[place] 1 tab PO TID PRN 30 Days #90 tab 11/27/24 10-325] traMADol HCL 50 mg PO Q6H PRN 30 Days #90 tab 11/27/24 Allergies Allergy/AdvReac Type Severity Reaction Status Date / Time No Known Allergies Allergy Verified 11/29/24 13:04 Review of Systems ROS Statement: Those systems with pertinent positive or pertinent negative responses have been documented in the HPI. Review of Systems: CONST: Denies fever EYES: Denies blurry vision ENT: Denies nasal congestion C/V: Denies Chest pain RESP: Denies shortness of breath GI: Denies abdominal pain : Denies dysuria SKIN: Denies rash. MSK: Denies joint pain. NEURO: Endorses generalized weakness ROS Other: All systems not noted in ROS Statement are negative. 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, lymph History of Any Multi-Drug Resistant Organisms: None Reported Past Surgical History: Breast Surgery Additional Past Surgical History / Comment(s): left breast lumpectomy x 2 "precancerous" Past Anesthesia/Blood Transfusion Reactions: No Reported Reaction, Family History of Problems w/ Anesthesia Additional Past Anesthesia/Blood Transfusion Reaction / Comment(s): daughter has hard time coming out of anesthesia Past Psychological History: Depression Smoking Status: Former smoker Past Alcohol Use History: Rare Past Drug Use History: None Reported - Past Family History Brother(s) Family Medical History: Pulmonary Embolus Mother Additional Family Medical History / Comment(s): from Alzheimer's Father Additional Family Medical History / Comment(s): from unknown cause, possibly his heart General Exam - General Exam Comments Initial Comments: General: Appears cachectic. HEAD: Normal with no signs of head trauma. EYES: PERRLA, EOMI, conjunctiva normal, no discharge. ENT: Hearing grossly intact, normal oropharynx. Clinically dehydrated with dry mucous membranes. RESPIRATORY: Clear breath sounds bilaterally. No wheezes, rales, or rhonchi. C/V: Regular rate and rhythm. S1 and S2 auscultated, no edema, peripheral pulses 2+ and intact throughout ABD: Abd is soft, nontender, nondistended EXT: Normal range of motion, no obvious deformity SKIN: No rashes or lesions observed on exposed skin. NEURO: Alert and oriented x 4. No focal deficits. Generalized weakness. Limitations: no limitations Course Vital Signs 11/29/24 11/29/24 11/29/24 10:02 11:12 14:04 Temperature 97.6 F 97.8 F 97.8 F Pulse Rate 100 59 L 91 Respiratory 18 16 18 Rate Blood Pressure 92/65 103/53 139/76 O2 Sat by Pulse 92 L 100 100 Oximetry Medical Decision Making - Medical Decision Making Was pt. sent in by a medical professional or institution (, PA, GRANITE CUTTER APPRENTICE, urgent care, hospital, or residential...) When possible be specific @ -No Did you speak to anyone other than the patient for history (EMS, parent, family, police, friend...)? What history was obtained from this source @ -No Did you review nursing and triage notes (agree or disagree)? Why? @ -I reviewed and agree with nursing and triage notes Were old charts reviewed (outside hosp., previous admission, EMS record, old EKG, old radiological studies, urgent care reports/EKG's, residential records)? Report findings @ -No old charts were reviewed Differential Diagnosis (chest pain, altered mental status, abdominal pain women, abdominal pain men, vaginal bleeding, weakness, fever, dyspnea, syncope, headache, dizziness, GI bleed, back pain, seizure, CVA, palpatations, mental health, musculoskeletal)? @ -Differential Weakness: Hypoglycemia, shock, sepsis, hyponatremia, anemia, infection, TN, ETOH, adverse medicine reaction, overdose, stroke, this is not meant to be an all-inclusive list. EKG interpreted by me (3pts min.). @ -As above X-rays interpreted by me (1pt min.). @ -Chest x-ray shows no obvious acute cardiopulmonary process. CT interpreted by me (1pt min.). @ -None done U/S interpreted by me (1pt. min.). @ -None done What testing was considered but not performed or refused? (CT, X-rays, U/S, labs)? Why? @ -None What meds were considered but not given or refused? Why? @ -None Did you discuss the management of the patient with other professionals (professionals i.e. , PA, GRANITE CUTTER APPRENTICE, lab, RT, psych nurse, social worker aide, warranty manager, teacher, surveillance sensor officer, immigration case worker)? Give summary @ -Discussed with the admitting provider, Dr. Sampson who accepted the admission. Was smoking cessation discussed for >3mins.? @ -No Was critical care preformed (if so, how long)? @ -Yes, 30 minutes Were there social determinants of health that impacted care today? How? (Homelessness, low income, unemployed, alcoholism, drug addiction, transportation, low edu. Level, literacy, decrease access to med. care, senior care, rehab)? @ -No Was there de-escalation of care discussed even if they declined (Discuss DNR or withdrawal of care, Hospice)? DNR status @ -No What co-morbidities impacted this encounter? (DM, HTN, Smoking, COPD, CAD, Cancer, CVA, ARF, Chemo, Hep., AIDS, mental health diagnosis, sleep apnea, morbid obesity)? @ -Lung cancer on chemotherapy Was patient admitted / discharged? Hospital course, mention meds given and route, prescriptions, significant lab abnormalities, going to OR and other pertinent info. @ -Patient presents emergency department for dehydration and weakness. Is a cancer patient on chemo. We obtain broad workup. She was in agreement this plan. Clinically she appears dehydrated. She will be given 30 cc/kg fluid bolus of normal saline. She is also given nausea meds. Patient was in agree ment this plan. Vitals are within acceptable limits. Initially mildly tachycardic but this did improve throughout her stay. Laboratory studies returned remarkable for leukocytosis of 32 which is likely related to both infection as well as chemo and dehydration. Patient is hypokalemic to 2.3. Patient has a lactic acidosis of 3.1. Magnesium is low as well as 1.4. Urinalysis does appear to be possibly infected. Viral swabs negative. Chest x-ray does reveal pneumonia as well. On reevaluation, I discussed results with the patient. She meets sepsis criteria at 1300. Patient already received 30 cc/kg fluid bolus of normal saline and she was started on 130cc an hour of lactated Ringer's maintenance. Patient started on broad-spectrum vancomycin and cefepime. Blood culture obtained and sent. Urine culture also sent. Patient is hemodynamically stable. Magnesium and potassium supplementation initiated. On reevaluation, updated patient. She expressed understanding. She will be a dmitted to the hospital at this time. I spoke with the admitting provider, Dr. Sampson who accepted the admission. Undiagnosed new problem with uncertain prognosis? @ -No Drug Therapy requiring intensive monitoring for toxicity (Heparin, Nitro, Insulin, Cardizem)? @ -No Were any procedures done? @ -No Diagnosis/symptom? @ -Sepsis likely secondary to pneumonia/UTI, dehydration, hypokalemia, hypomagnesemia Acute, or Chronic, or Acute on Chronic? @ -Acute Uncomplicated (without systemic symptoms) or Complicated (systemic symptoms)? @ -Complicated Side effects of treatment? @ -No Exacerbation, Progression, or Severe Exacerbation? @ -No Poses a threat to life or bodily function? How? (Chest pain, [place], TN, pneumonia, PE, COPD, DKA, ARF, appy, cholecystitis, CVA, Diverticulitis, Homicidal, Suicidal, threat to staff... and all critical care pts) @ -Yes - Lab Data Result diagrams: 11/29/24 11:08 11/29/24 11:08 Lab Results 11/29/24 11/29/24 11/29/24 Range/Units 11:08 11:08 11:08 WBC 32.68 H (4.50-10.00) 10*3/uL RBC 4.81 (4.10-5.20) 10*6/uL Hgb 14.4 (12.0-15.0) g/dL Hct 43.2 (37.2-46.3) % MCV 89.8 (80.0-97.0) fL MCH 29.9 (27.0-32.0) pg MCHC 33.3 (32.0-37.0) g/dL Plt Count 427 (140-440) 10*3/uL MPV 10.8 (9.5-12.2) fL Immature Gran % (Auto) 10.0 % Neutrophils % 86.5 % Lymphocytes % 2.7 % Monocytes % 0.1 % Eosinophils % 0.0 % Basophils % 0.7 % Immature Gran # 3.26 H (0.00-0.04) 10*3/uL Neutrophils # 28.27 H (1.80-7.70) 10*3/uL Lymphocytes # 0.89 L (0.90-5.00) 10*3/uL Monocytes # 0.03 L (0.20-1.00) 10*3/uL Eosinophils # 0.01 L (0.04-0.35) 10*3/uL Basophils # 0.22 H (0.00-0.10) 10*3/uL Manual Slide Review Performed PT 11.5 (10.0-12.5) sec INR 1.0 (<1.2) APTT 23.5 (22.0-30.0) sec Sodium (137-145) mmol/L Potassium (3.5-5.1) mmol/L Chloride (98-107) mmol/L Carbon Dioxide (22-30) mmol/L Anion Gap mmol/L BUN (7-17) mg/dL Creatinine (0.52-1.04) mg/dL Est GFR (CKD-EPI)AfAm (>60 ml/min/1.73 sqM) Est GFR (CKD-EPI)NonAf (>60 ml/min/1.73 sqM) Glucose (74-99) mg/dL Lactic Ac Sepsis Rflx Plasma Lactic Acid E[place] (0.7-2.0) mmol/L Calcium (8.4-10.2) mg/dL Magnesium (1.6-2.3) mg/dL Total Bilirubin (0.2-1.3) mg/dL AST (14-36) U/L ALT (4-34) U/L Alkaline Phosphatase (38-126) U/L Total Protein (6.3-8.2) g/dL Albumin (3.5-5.0) g/dL Urine Color Yellow Urine Appearance Cloudy H (Clear) Urine pH 6.5 (5.0-8.0) Ur Specific [place] 1.014 (1.001-1.035) Urine Protein 1+ H (Negative) Urine Glucose (UA) 1+ H (Negative) Urine Ketones 3+ H (Negative) Urine Blood Small H (Negative) Urine Nitrite Negative (Negative) Urine Bilirubin 1+ H (Negative) Urine Urobilinogen <2.0 (<2.0) mg/dL Ur Leukocyte Esterase Large H (Negative) Urine RBC 19 H (0-5) /hpf Urine WBC 40 H (0-5) /hpf Ur Squamous Epith Cells 6 H (0-4) /hpf Urine Bacteria Rare H (None) /hpf Urine Mucus Rare H (None) /hpf Influenza Type A (PCR) (Not Detectd) Influenza Type B (PCR) (Not Detectd) RSV (PCR) (Not Detectd) SARS-CoV-2 (PCR) (Not Detectd) Group A Strep (PCR) (Not Detectd) 11/29/24 11/29/24 11/29/24 Range/Units 11:08 11:08 11:08 WBC (4.50-10.00) 10*3/uL RBC (4.10-5.20) 10*6/uL Hgb (12.0-15.0) g/dL Hct (37.2-46.3) % MCV (80.0-97.0) fL MCH (27.0-32.0) pg MCHC (32.0-37.0) g/dL Plt Count (140-440) 10*3/uL MPV (9.5-12.2) fL Immature Gran % (Auto) % Neutrophils % % Lymphocytes % % Monocytes % % Eosinophils % % Basophils % % Immature Gran # (0.00-0.04) 10*3/uL Neutrophils # (1.80-7.70) 10*3/uL Lymphocytes # (0.90-5.00) 10*3/uL Monocytes # (0.20-1.00) 10*3/uL Eosinophils # (0.04-0.35) 10*3/uL Basophils # (0.00-0.10) 10*3/uL Manual Slide Review PT (10.0-12.5) sec INR (<1.2) APTT (22.0-30.0) sec Sodium 133 L (137-145) mmol/L Potassium 2.3 L* (3.5-5.1) mmol/L Chloride 82 L (98-107) mmol/L Carbon Dioxide 40 H (22-30) mmol/L Anion Gap 11 mmol/L BUN 25 H (7-17) mg/dL Creatinine 0.95 (0.52-1.04) mg/dL Est GFR (CKD-EPI)AfAm 70 (>60 ml/min/1.73 sqM) Est GFR (CKD-EPI)NonAf 60 (>60 ml/min/1.73 sqM) Glucose 115 H (74-99) mg/dL Lactic Ac Sepsis Rflx Plasma Lactic Acid E[place] 3.1 H* (0.7-2.0) mmol/L Calcium 9.1 (8.4-10.2) mg/dL Magnesium 1.4 L (1.6-2.3) mg/dL Total Bilirubin 1.4 H (0.2-1.3) mg/dL AST 53 H (14-36) U/L ALT 29 (4-34) U/L Alkaline Phosphatase 136 H (38-126) U/L Total Protein 5.9 L (6.3-8.2) g/dL Albumin 3.7 (3.5-5.0) g/dL Urine Color Urine Appearance (Clear) Urine pH (5.0-8.0) Ur Specific [place] (1.001-1.035) Urine Protein (Negative) Urine Glucose (UA) (Negative) Urine Ketones (Negative) Urine Blood (Negative) Urine Nitrite (Negative) Urine Bilirubin (Negative) Urine Urobilinogen (<2.0) mg/dL Ur Leukocyte Esterase (Negative) Urine RBC (0-5) /hpf Urine WBC (0-5) /hpf Ur Squamous Epith Cells (0-4) /hpf Urine Bacteria (None) /hpf Urine Mucus (None) /hpf Influenza Type A (PCR) Not Detected (Not Detectd) Influenza Type B (PCR) Not Detected (Not Detectd) RSV (PCR) Not Detected (Not Detectd) SARS-CoV-2 (PCR) Not Detected (Not Detectd) Group A Strep (PCR) (Not Detectd) 11/29/24 11/29/24 Range/Units 11:08 11:50 WBC (4.50-10.00) 10*3/uL RBC (4.10-5.20) 10*6/uL Hgb (12.0-15.0) g/dL Hct (37.2-46.3) % MCV (80.0-97.0) fL MCH (27.0-32.0) pg MCHC (32.0-37.0) g/dL Plt Count (140-440) 10*3/uL MPV (9.5-12.2) fL Immature Gran % (Auto) % Neutrophils % % Lymphocytes % % Monocytes % % Eosinophils % % Basophils % % Immature Gran # (0.00-0.04) 10*3/uL Neutrophils # (1.80-7.70) 10*3/uL Lymphocytes # (0.90-5.00) 10*3/uL Monocytes # (0.20-1.00) 10*3/uL Eosinophils # (0.04-0.35) 10*3/uL Basophils # (0.00-0.10) 10*3/uL Manual Slide Review PT (10.0-12.5) sec INR (<1.2) APTT (22.0-30.0) sec Sodium (137-145) mmol/L Potassium (3.5-5.1) mmol/L Chloride (98-107) mmol/L Carbon Dioxide (22-30) mmol/L Anion Gap mmol/L BUN (7-17) mg/dL Creatinine (0.52-1.04) mg/dL Est GFR (CKD-EPI)AfAm (>60 ml/min/1.73 sqM) Est GFR (CKD-EPI)NonAf (>60 ml/min/1.73 sqM) Glucose (74-99) mg/dL Lactic Ac Sepsis Rflx Y Plasma Lactic Acid [place] (0.7-2.0) mmol/L Calcium (8.4-10.2) mg/dL Magnesium (1.6-2.3) mg/dL Total Bilirubin (0.2-1.3) mg/dL AST (14-36) U/L ALT (4-34) U/L Alkaline Phosphatase (38-126) U/L Total Protein (6.3-8.2) g/dL Albumin (3.5-5.0) g/dL Urine Color Urine Appearance (Clear) Urine pH (5.0-8.0) Ur Specific [place] (1.001-1.035) Urine Protein (Negative) Urine Glucose (UA) (Negative) Urine Ketones (Negative) Urine Blood (Negative) Urine Nitrite (Negative) Urine Bilirubin (Negative) Urine Urobilinogen (<2.0) mg/dL Ur Leukocyte Esterase (Negative) Urine RBC (0-5) /hpf Urine WBC (0-5) /hpf Ur Squamous Epith Cells (0-4) /hpf Urine Bacteria (None) /hpf Urine Mucus (None) /hpf Influenza Type A (PCR) (Not Detectd) Influenza Type B (PCR) (Not Detectd) RSV (PCR) (Not Detectd) SARS-CoV-2 (PCR) (Not Detectd) Group A Strep (PCR) NOT DETECTED (Not Detectd) - EKG Data -: EKG Interpreted by Me EKG Comments: 12-lead Electrocardiogram Interpretation Note EKG was reviewed and interpreted by myself. 12-lead ECG performed at 1103 is interpreted by me as revealing sinus tachycardia at a rate of 115 beats per minute. [place] is normal. [place] interval is 160 ms, QRS durations 96 ms, QTc is [address] segment and T wave abnormalities present.. R wave progression across the precordium was satisfactory. By my interpretation this EKG is non-diagnostic for acute ischemia. Critical Care Time Critical Care Time: Yes Total Critical Care Time: 30 Disposition Clinical Impression: Sepsis, UTI (urinary tract infection), Pneumonia, Dehydration, Hypokalemia, Hypomagnesemia Disposition: ADMITTED IP TO THIS HOSP Condition: Serious Referrals: Osmin Heller DO [Primary Care Provider] - 1-2 days Time of Disposition: 13:14
--- NOTE | 2024-11-29 15:02 | P.CONS ---
History of Present Illness - Reason for Consult Consult date: 11/29/24 Lung cancer chemo pt Requesting physician: Lia Sampson - Chief Complaint Weakness - History of Present Illness Ms. 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 She is here for increased weakness and decreased oral intake. Has chronic diarrhea. Work up with hyponatremia at 133, K 2.3, Cr 0.9, WBC 32, normal Hgb and plt, and CXR positive for RLL infiltrate concerning for PNA. She was started on hydration and antibiotics and admitted. Oncologic History: Pt follows with Dr. Moser. Ms Woodard is a pleasant white female, initially seen in consult at [facility] on 06/03/24. She has multiple medical problems, overall reasonably well-controlled at baseline. She had come into the emergency room with low-grade fever, as well as cough, and shortness of breath which were progressive over the past few weeks. She had been having night sweats and some unintentional weight loss of about 60 pounds over the past 2 years. He had noticed an improvement in his symptoms been placed on prednisone for vision loss earlier in the year. The patient is on follow-up with pulmonary medicine for a lung nodule, with low-dose lung CT in 03/05 showing a 1.1 cm right lower lobe spiculated mass. PET scan in 04/05 however showed the mass to be smaller at 9 mm with low level FDG avidity, more consistent with inflammation. Chest x-ray the hospital showed a moderate left-sided pleural effusion. CT of the chest confirmed moderate to large left-sided pleural effusion, as well as a significant pericardial effusion. The right lower lobe nodule was again seen, stable. She was also noted to have hypocalcemia, as well as hyponatremia and hypokalemia. The patient underwent pericardial window, as well as paracentesis on 06/04/24. Pathology was negative for malignancy, showing inflammatory changes. Labs done in patient showed high AMNA of 1:1240 The patient improved after fluid drainage, and was able to discharged. She has not had recurrence of those symptoms since, and was seen in the office for her first visit on 06/24/24. She denied any known diagnosis personally of an autoimmune disease, but stated that her daughter has known rheumatoid arthritis the patient was therefore referred to rheumatology. Apparently workup with them did not show any definite evidence of autoimmune disease. She continued follow-up with pulmonary medicine. She developed right-sided lower chest wall pain, starting on mid 09/06. She had repeat imaging with CT scan, PET scan and then repeat bronchoscopy the end of 09/06. Repeat imaging showed significant growth in the right lower lobe nodule, into the 3 cm range. PET scan revealed increased uptake in this area, as well as uptake in a 5 cm plus subcarinal mass, and in a right hilar lymph node. The patient's bronchoscopy with biopsy from the right lower lobe mass showed poorly differentiated neuroendocrine carcinoma, predominantly large cell type. Biopsy from station 7 lymph node was also positive for poorly differentiated carcinoma. PET scan reveals some subtle uptake in the right anterolateral lateral chest wall area just above the diaphragm, without any associated anatomical abnormality or fluid seen. There is no evidence of recurrent fluid on the left side, or in the pericardium. As the right chest wall appeared to be the only area of involvement, outside the primary site and mediastinum, a biopsy was recommended. was suitable target was not seen by IR. The patient was then referred to cardiology thoracic surgery, and had the procedure on 10/08/24. Thoracoscopy showed obvious involvement of the pleura with metastases, with biopsy confirming the same pathology that is, large cell neuroendocrine carcinoma. The patient biomarker testing showed PD1 less than 1%, with no other actionable mutation. She was PTEN positive, with a targeted agent available, but not approved for lung cancer She was therefore referred for palliative radiation to the chest wall, completing that in week 3 of 11/04. She was then started on systemic therapy with [employer]-16/carboplatin/keytruda on 11/03/24, is status post 1 cycle. Last seen on 11/17/24, and plan is as follows: The patient is status post chest wall radiation, and cycle 1 of chemotherapy, as described. Patient's has had adverse effects from chemotherapy, which have shown improvement over the past weeks, gradually. CBC shows WBC of 1.84, ANC 0.57, hemoglobin 12.08 and platelets 112. - Check labs - Continue current treatment. Add G-CSF - Restaging scans after 3 cycles - Supportive care measures discussed. The patient specifically was asked to be more aggressive with anti-emetics. We also discussed the use of supplements. - Refer to anesthesia for consideration of right intercostal nerve blocks Past Medical History Past Medical History: Atrial Fibrillation, Cancer, GERD/Reflux, Hypertension, Pneumonia Additional Past Medical History / Comment(s): hx migraines, ABD PAIN, HEMORROIDS, gallstone, optic nerve damage tatiana eyes, pleural effusion & pericar dial effusion May 2024, 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, lymph History of Any Multi-Drug Resistant Organisms: None Reported Past Surgical History: Breast Surgery Additional Past Surgical History / Comment(s): left breast lumpectomy x 2 "precancerous" Past Anesthesia/Blood Transfusion Reactions: No Reported Reaction, Family History of Problems w/ Anesthesia Additional Past Anesthesia/Blood Transfusion Reaction / Comm: daughter has hard time coming out of anesthesia Past Psychological History: Depression Smoking Status: Former smoker Past Alcohol Use History: Rare Past Drug Use History: None Reported - Past Family History Brother(s) Family Medical History: Pulmonary Embolus Mother Additional Family Medical History / Comment(s): from Alzheimer's Father Additional Family Medical History / Comment(s): from unknown cause, possibly his heart Medications and Allergies Home Medications Medication Instructions Recorded Confirmed Type HYDROcodone/APAP 10-325MG [[place] 1 tab PO TID PRN 30 Days #90 tab 11/27/24 11/29/24 Rx 10-325] traMADol HCL 50 mg PO Q6H PRN 30 Days #90 tab 11/27/24 11/29/24 Rx Ondansetron [Zofran] 4 - 8 mg PO Q4H PRN 11/29/24 11/29/24 History Allergies Allergy/AdvReac Type Severity Reaction Status Date / Time No Known Allergies Allergy Verified 11/29/24 13:04 Physical Exam Vitals: Vital Signs Temp Pulse Resp BP Pulse Ox 11/29/24 14:04 97.8 F 91 18 139/76 100 11/29/24 11:12 97.8 F 59 L 16 103/53 100 11/29/24 10:02 97.6 F 100 18 92/65 92 L Intake and Output 11/28/24 11/29/24 11/29/24 22:59 06:59 14:59 Other: Weight 51.256 kg Pt is in no acute distress. No respiratory distress. Alert and oriented x 3. Results CBC & Chem 7: 11/29/24 11:08 11/29/24 11:08 Labs: Abnormal Lab Results - Last 24 Hours (Table) 11/29/24 11/29/24 11/29/24 Range/Units 11:08 11:08 11:08 WBC 32.68 H (4.50-10.00) 10*3/uL Immature Gran # 3.26 H (0.00-0.04) 10*3/uL Neutrophils # 28.27 H (1.80-7.70) 10*3/uL Lymphocytes # 0.89 L (0.90-5.00) 10*3/uL Monocytes # 0.03 L (0.20-1.00) 10*3/uL Eosinophils # 0.01 L (0.04-0.35) 10*3/uL Basophils # 0.22 H (0.00-0.10) 10*3/uL Sodium 133 L (137-145) mmol/L Potassium 2.3 L* (3.5-5.1) mmol/L Chloride 82 L (98-107) mmol/L Carbon Dioxide 40 H (22-30) mmol/L BUN 25 H (7-17) mg/dL Glucose 115 H (74-99) mg/dL Plasma Lactic Acid Ezekiel (0.7-2.0) mmol/L Magnesium 1.4 L (1.6-2.3) mg/dL Total Bilirubin 1.4 H (0.2-1.3) mg/dL AST 53 H (14-36) U/L Alkaline Phosphatase 136 H (38-126) U/L Total Protein 5.9 L (6.3-8.2) g/dL Urine Appearance Cloudy H (Clear) Urine Protein 1+ H (Negative) Urine Glucose (UA) 1+ H (Negative) Urine Ketones 3+ H (Negative) Urine Blood Small H (Negative) Urine Bilirubin 1+ H (Negative) Ur Leukocyte Esterase Large H (Negative) Urine RBC 19 H (0-5) /hpf Urine WBC 40 H (0-5) /hpf Ur Squamous Epith Cells 6 H (0-4) /hpf Urine Bacteria Rare H (None) /hpf Urine Mucus Rare H (None) /hpf 11/29/24 Range/Units 11:08 WBC (4.50-10.00) 10*3/uL Immature Gran # (0.00-0.04) 10*3/uL Neutrophils # (1.80-7.70) 10*3/uL Lymphocytes # (0.90-5.00) 10*3/uL Monocytes # (0.20-1.00) 10*3/uL Eosinophils # (0.04-0.35) 10*3/uL Basophils # (0.00-0.10) 10*3/uL Sodium (137-145) mmol/L Potassium (3.5-5.1) mmol/L Chloride (98-107) mmol/L Carbon Dioxide (22-30) mmol/L BUN (7-17) mg/dL Glucose (74-99) mg/dL Plasma Lactic Acid Ezekiel 3.1 H* (0.7-2.0) mmol/L Magnesium (1.6-2.3) mg/dL Total Bilirubin (0.2-1.3) mg/dL AST (14-36) U/L Alkaline Phosphatase (38-126) U/L Total Protein (6.3-8.2) g/dL Urine Appearance (Clear) Urine Protein (Negative) Urine Glucose (UA) (Negative) Urine Ketones (Negative) Urine Blood (Negative) Urine Bilirubin (Negative) Ur Leukocyte Esterase (Negative) Urine RBC (0-5) /hpf Urine WBC (0-5) /hpf Ur Squamous Epith Cells (0-4) /hpf Urine Bacteria (None) /hpf Urine Mucus (None) /hpf Chest x-ray: report reviewed Assessment and Plan Assessment: 1. Sepsis due to pneumonia 2. Lung cancer 3. Leukocytosis due to infection and G-CSF 4. Hyponatremia and severe hypokalemia 5. Dehydration Plan: Ms. Woodard is a very pleasant 74 yo female on carbo/etoposide/keytruda with Dr. 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 Work up with severe hypokalemia, hyponatremia, leukocytosis, and RLL opacity concerning for PNA. - Antibiotics as per ID - Hold chemotherapy - Antiemetics - Hydration - Electrolyte replacement - Monitor CBC, leukocytosis likely due in part to infection and also due to G- CSF she received on 11/27/24 Discussed with pt and she was agreeable. All questions answered.
[2024-11-29] MEDS: ONDANSETRON 4 MG/2 ML VIAL IVP PRN (18:26)
[2024-11-29] MEDS: LOPERAMIDE 2 MG CAP PO PRN (18:26)
[2024-11-29] MEDS: HYDROcodone/APAP 10-325MG 1 EACH TAB PO PRN (20:32)
[2024-11-30] MEDS: ENOXAPARIN 40 MG/0.4 ML SYRINGE SQ SCH (07:38)
[2024-11-30 07:39] LABS: ALT 21 U/L (4-34); AST 38 U/L (14-36); African American GFR (CKD) 88 (>60 ml/min/1.73 sqM); Albumin 2.7 g/dL (3.5-5.0); Alkaline Phosphatase 102 U/L (38-126); Anion Gap 1 mmol/L; Blood Urea Nitrogen 23 mg/dL (7-17); Calcium 8.2 mg/dL (8.4-10.2); Carbon Dioxide 40 mmol/L (22-30); Chloride 89 mmol/L (98-107); Glucose 95 mg/dL (74-99); Non-African American GFR(CKD) 77 (>60 ml/min/1.73 sqM); Sodium 130 mmol/L (137-145); Total Protein 4.7 g/dL (6.3-8.2)
[2024-11-30 07:50] LABS: Basophils # (A) 0.09 10*3/uL (0.00-0.10); Basophils % (A) 0.8 %; HCT 30.8 % (37.2-46.3); Lymphocytes % (A) 10.1 %; MCH 30.8 pg (27.0-32.0); MCHC 33.8 g/dL (32.0-37.0); MCV 91.1 fL (80.0-97.0); Mean Platelet Volume 11.1 fL (9.5-12.2); Monocytes # (A) 0.04 10*3/uL (0.20-1.00); Monocytes % (A) 0.4 %; Neutrophils # (A) 8.78 10*3/uL (1.80-7.70); Neutrophils % (A) 80.2 %; RBC 3.38 10*6/uL (4.10-5.20); RDW 14.7 % (11.5-14.5); WBC 10.94 10*3/uL (4.50-10.00)
[2024-11-30 07:55] LABS: Potassium 2.5 mmol/L (3.5-5.1)
[2024-11-30 08:01] LABS: HGB 10.4 g/dL (12.0-15.0)
[2024-11-30 09:13] LABS: Platelet Count 279 10*3/uL (140-440)
[2024-11-30] MEDS: POTASSIUM CHLORIDE ER 20 MEQ TAB.ER PO STA (09:16)
[2024-11-30] MEDS: POTASSIUM CHLORIDE 10 MEQ in WATER FOR INJECTION 1 100ML.BAG IVPB SCH (09:17)
[2024-11-30] MEDS: MAGNESIUM SULFATE-D5W PMX 1 GM in DEXTROSE/WATER 1 100ML.BAG IVPB SCH (10:06)
--- NOTE | 2024-11-30 10:59 | P.PN ---
Subjective Progress Note Date: 11/30/24 74 year old F with PMH of lung malignancy, AFib not on AC, h/o tobacco abuse presents to the ED for generalized weakness. She is currently undergoing chemotherapy and radiation, her last session was on Sunday. Patient reports profound weakness that started on associated with chills and hot swe ats. She reports 2 episodes on NBNB N/V and 2 episodes of diarrhea that started today. She reports positional lightheadedness. Also reports decreased appetite. These symptoms prompted her to come to the ED. She denies any headache, LE edema, cough, chest pain, shortness of breath, palpitations, changes in urination. She denies numbness or tinging of the extremities. In the ED she underwent extensive evaluation. BP 92/65, HR 100, T 97.6F, RR 18, 92% on RA. CBC, Coag panel, CMP significant for WBC 32.68, Na 133, K 2.3, Cl 92, bicarb 40, BUN 25, glu 115, T. Bili 1.4, AST 53, alk phos 136, total protein 5.9. UA large LE with 40 WBCs. Lactic acid 3.1. COVID, RSV, Flu neg. CXR small right middle l obe infiltrate. Patient was given 2L NS bolus, Vancomycin/Cefepime, Zofran and admitted for further workup and management. 11/30 Patient was seen and examined. Still feeling weak and nauseated. No more diarrhea. CBC and CMP significant for WBC 10.94, RBC 3.38, Hg 10.4, Hct 30.8, Na 130, K 2.5, Cl 89, bicarb 40, BUN 23, Ca 8.2, AST 38, alb 2.7. Lactic acid 1.7. Mag 1.5. General: no distress, appears older than stated age Derm: warm, dry Head: atraumatic, normocephalic, symmetric Mouth: no lip lesion, mucus membranes moist Cardiovascular: S1 S2 tachy. No murmur. Lungs: Clear to auscultation bilaterally, no accessory muscle use Ext: no gross muscle atrophy, no edema, no contractures Neuro: No focal neurologic deficits. Psych: Alert and oriented. Based on my assessment of this patient, this patient meets a high complexity level of care. SIRS versus Sepsis: Leukocytosis, tachycardia on admission. No obvious source of infection. UA large LE with 40 WBC but patient asymptomatic. CXR concerning for right middle lobe infiltrate (also the location for malignancy). Continue Vancomycin dosed per pharmacy and Cefepime 2g IV BID. Obtain MRSA nasal swab, may discontinue Vancomycin if negative. Follow BCx + UCx. Continue LR at 130 cc/hr. Telemetry monitoring. Maintain MAP > 65. Oncology on board. Hypokalemia: KCl 40 meq PO + 40 meq IV x 1. Repeat in the AM. Prerenal azotemia, hypoCl hypoNa and metabolic alkalosis: Likely due to severe dehydration. IV hydration as above. Hypomagnesemia: Mag sulfate 4g IV x 1. Repeat in the AM. Normocytic anemia: Acute drop likely dilutional. No signs of active bleeding. Monitor Hg. Transaminitis: Improved. Likely due to dehydration. IV hydration as above. Abdomen is benign. Consider Liver/GB imaging if labs dont improve. Lung malignancy: Oncology consult. History of AFib: Not on any blood thinners or rate control/ anti-arrhythmics. Resolved: Lactic acidosis, Hyperbilirubinemia CODE STATUS: FULL CODE. DVT Prophylaxis: Lovenox SQ GI Prophylaxis: Designated medical POA if patient is not able to make medical decisions for themselves: Daughters I have reviewed the following employee relations consultant notes: Oncology note. I have reviewed the results of the following tests: CBC, CMP, Lactic acid, Mag. I have ordered the following tests: CBC, BMP, Mag in the AM. I have discussed the care of this patient with the following independent historian: Family at bedside. I have independently interpreted the following test below: I have discussed the management of this patient with the following physician: Objective - Vital Signs Vital signs: Vital Signs Temp 98.3 F 11/30/24 07:27 Pulse 98 11/30/24 07:27 Resp 16 11/30/24 07:27 BP 113/70 11/30/24 07:27 Pulse Ox 99 11/30/24 07:27 FiO2 Intake & Output 11/29/24 11/30/24 11/30/24 18:59 06:59 18:59 Weight 51.256 kg 52 kg Other: Voiding Method Toilet Toilet Toilet # Voids 1 1 - Labs CBC & Chem 7: 11/30/24 06:40 11/30/24 06:40 Labs: Abnormal Lab Results - Last 24 Hours (Table) 11/29/24 11/29/24 11/29/24 Range/Units 11:08 11:08 11:08 WBC 32.68 H (4.50-10.00) 10*3/uL RBC (4.10-5.20) 10*6/uL Hgb (12.0-15.0) g/dL Hct (37.2-46.3) % Immature Gran # 3.26 H (0.00-0.04) 10*3/uL Neutrophils # 28.27 H (1.80-7.70) 10*3/uL Lymphocytes # 0.89 L (0.90-5.00) 10*3/uL Monocytes # 0.03 L (0.20-1.00) 10*3/uL Eosinophils # 0.01 L (0.04-0.35) 10*3/uL Basophils # 0.22 H (0.00-0.10) 10*3/uL Sodium 133 L (137-145) mmol/L Potassium 2.3 L* (3.5-5.1) mmol/L Chloride 82 L (98-107) mmol/L Carbon Dioxide 40 H (22-30) mmol/L BUN 25 H (7-17) mg/dL Glucose 115 H (74-99) mg/dL Plasma Lactic Acid Ezekiel (0.7-2.0) mmol/L Calcium (8.4-10.2) mg/dL Magnesium 1.4 L (1.6-2.3) mg/dL Total Bilirubin 1.4 H (0.2-1.3) mg/dL AST 53 H (14-36) U/L Alkaline Phosphatase 136 H (38-126) U/L Total Protein 5.9 L (6.3-8.2) g/dL Albumin (3.5-5.0) g/dL Urine Appearance Cloudy H (Clear) Urine Protein 1+ H (Negative) Urine Glucose (UA) 1+ H (Negative) Urine Ketones 3+ H (Negative) Urine Blood Small H (Negative) Urine Bilirubin 1+ H (Negative) Ur Leukocyte Esterase Large H (Negative) Urine RBC 19 H (0-5) /hpf Urine WBC 40 H (0-5) /hpf Ur Squamous Epith Cells 6 H (0-4) /hpf Urine Bacteria Rare H (None) /hpf Urine Mucus Rare H (None) /hpf 11/29/24 11/30/24 11/30/24 Range/Units 11:08 06:40 06:40 WBC 10.94 H (4.50-10.00) 10*3/uL RBC 3.38 L (4.10-5.20) 10*6/uL Hgb 10.4 L D (12.0-15.0) g/dL Hct 30.8 L (37.2-46.3) % Immature Gran # 0.93 H (0.00-0.04) 10*3/uL Neutrophils # 8.78 H (1.80-7.70) 10*3/uL Lymphocytes # (0.90-5.00) 10*3/uL Monocytes # 0.04 L (0.20-1.00) 10*3/uL Eosinophils # 0.00 L (0.04-0.35) 10*3/uL Basophils # (0.00-0.10) 10*3/uL Sodium 130 L (137-145) mmol/L Potassium 2.5 L* (3.5-5.1) mmol/L Chloride 89 L (98-107) mmol/L Carbon Dioxide 40 H (22-30) mmol/L BUN 23 H (7-17) mg/dL Glucose (74-99) mg/dL Plasma Lactic Acid Ezekiel 3.1 H* (0.7-2.0) mmol/L Calcium 8.2 L (8.4-10.2) mg/dL Magnesium (1.6-2.3) mg/dL Total Bilirubin (0.2-1.3) mg/dL AST 38 H (14-36) U/L Alkaline Phosphatase (38-126) U/L Total Protein 4.7 L (6.3-8.2) g/dL Albumin 2.7 L (3.5-5.0) g/dL Urine Appearance (Clear) Urine Protein (Negative) Urine Glucose (UA) (Negative) Urine Ketones (Negative) Urine Blood (Negative) Urine Bilirubin (Negative) Ur Leukocyte Esterase (Negative) Urine RBC (0-5) /hpf Urine WBC (0-5) /hpf Ur Squamous Epith Cells (0-4) /hpf Urine Bacteria (None) /hpf Urine Mucus (None) /hpf 11/30/24 Range/Units 06:40 WBC (4.50-10.00) 10*3/uL RBC (4.10-5.20) 10*6/uL Hgb (12.0-15.0) g/dL Hct (37.2-46.3) % Immature Gran # (0.00-0.04) 10*3/uL Neutrophils # (1.80-7.70) 10*3/uL Lymphocytes # (0.90-5.00) 10*3/uL Monocytes # (0.20-1.00) 10*3/uL Eosinophils # (0.04-0.35) 10*3/uL Basophils # (0.00-0.10) 10*3/uL Sodium (137-145) mmol/L Potassium (3.5-5.1) mmol/L Chloride (98-107) mmol/L Carbon Dioxide (22-30) mmol/L BUN (7-17) mg/dL Glucose (74-99) mg/dL Plasma Lactic Acid Ezekiel (0.7-2.0) mmol/L Calcium (8.4-10.2) mg/dL Magnesium 1.5 L (1.6-2.3) mg/dL Total Bilirubin (0.2-1.3) mg/dL AST (14-36) U/L Alkaline Phosphatase (38-126) U/L Total Protein (6.3-8.2) g/dL Albumin (3.5-5.0) g/dL Urine Appearance (Clear) Urine Protein (Negative) Urine Glucose (UA) (Negative) Urine Ketones (Negative) Urine Blood (Negative) Urine Bilirubin (Negative) Ur Leukocyte Esterase (Negative) Urine RBC (0-5) /hpf Urine WBC (0-5) /hpf Ur Squamous Epith Cells (0-4) /hpf Urine Bacteria (None) /hpf Urine Mucus (None) /hpf
[2024-11-30] MEDS: VANCOMYCIN 1,000 MG in SODIUM CHLORIDE 0.9% 250 ML IVPB SCH (14:02)
[2024-12-01 07:21] LABS: African American GFR (CKD) >90 (>60 ml/min/1.73 sqM); Blood Urea Nitrogen 14 mg/dL (7-17); Calcium 8.9 mg/dL (8.4-10.2); Chloride 88 mmol/L (98-107); Glucose 87 mg/dL (74-99); Magnesium 1.9 mg/dL (1.6-2.3); Non-African American GFR(CKD) 85 (>60 ml/min/1.73 sqM); Sodium 130 mmol/L (137-145)
[2024-12-01 07:22] LABS: HCT 34.2 % (37.2-46.3); HGB 11.1 g/dL (12.0-15.0); MCHC 32.5 g/dL (32.0-37.0); MCV 92.4 fL (80.0-97.0); Mean Platelet Volume 11.1 fL (9.5-12.2); Platelet Count 234 10*3/uL (140-440); RDW 14.8 % (11.5-14.5); WBC 1.68 10*3/uL (4.50-10.00)
[2024-12-01 07:28] LABS: Anion Gap 6 mmol/L
[2024-12-01 07:29] LABS: Carbon Dioxide 36 mmol/L (22-30)
[2024-12-01] MEDS: POTASSIUM CHLORIDE ER 20 MEQ TAB.ER PO STA (08:22)
--- NOTE | 2024-12-01 14:27 | P.PN ---
Subjective Progress Note Date: 12/01/24 Hospital Course: 74 year old F with PMH of lung malignancy, AFib not on AC, h/o tobacco abuse p resents to the ED for generalized weakness. She is currently undergoing chemotherapy and radiation, her last session was on Sunday. Patient reports profound weakness that started on associated with chills and hot sweats. She reports 2 episodes on NBNB N/V and 2 episodes of diarrhea that started today. She reports positional lightheadedness. Also reports decreased appetite. These symptoms prompted her to come to the ED. She denies any headache, LE edema, cough, chest pain, shortness of breath, palpitations, changes in urination. She denies numbness or tinging of the extremities. In the ED she underwent extensive evaluation. BP 92/65, HR 100, T 97.6F, RR 18, 92% on RA. CBC, Coag panel, CMP significant for WBC 32.68, Na 133, K 2.3, Cl 92, bicarb 40, BUN 25, glu 115, T. Bili 1.4, AST 53, alk phos 136, total protein 5.9. UA large LE with 40 WBCs. Lactic acid 3.1. COVID, RSV, Flu neg. CXR small right middle lobe infiltrate. Patient was given 2L NS bolus, Vancomycin/Cefepime, Zofr an and admitted for further workup and management. 12/01: Seen and examined at bedside, patient present during exam, she feels weak, has very little appetite, complains of nausea but no vomiting, normal bowel movements. Afebrile. WBC 1.68 this morning, hemoglobin 11.1, sodium 130 stable, potassium 3.0, improved, bicarb 36, improved, creatinine normal. Urine cultures showed skin and urogenital heladio, blood cultures preliminary negative Patient has very minimal oral intake, declined protein shakes as they make her sick, encouraged to increase oral intake Pertinent Imaging: No new imaging Pertinent positives and negatives as discussed above, a complete review of systems was performed and all other systems are negative. Vitals Signs Reviewed. General: [nontoxic], [no distress], [appears at stated age], chronically ill- appearing Derm: [warm], [dry] Head: [atraumatic], [normocephalic], [symmetric] Eyes: [EOMI], [no lid lag], [anicteric sclera] Mouth: [no lip lesion], [mucus membranes moist] Cardiovascular: [S1S2 reg], [no murmur] Lungs: [CTA bilateral], [no rhonchi, no rales] , [no accessory muscle use] Abdominal: [soft], [ nontender to palpation], [no guarding], [no appreciable organomegaly] Ext: [no gross muscle atrophy], [no edema], [no contractures] Neuro: [ CN II-XI grossly intact], [no focal neuro deficits] Psych: [Alert], [oriented], [appropriate affect] Assessment and Plan: SIRS versus sepsis, leukocytosis and tachycardia on admission Leukocytosis, resolved, now leukopenic -No source of infection - UA with pyuria but no symptoms of UTI - Urine cultures growing skin and genitourinary heladio 10-50k, no identified organism -CXR concerning for right middle lobe infiltrate (also the location for malignancy) -ontinue Vancomycin dosed per pharmacy and Cefepime 2g IV BID, monitor BMP daily, monitor for renal toxicity - MRSA swab pending -Repeat CBC and this afternoon in the morning Hypokalemia -KCl 40 mg stat once, repeat in the morning Hypochloremic hyponatremia Metabolic alkalosis Prerenal azotemia All secondary to dehydration - Continue LR at 130 cc/h - Monitor BMP daily Hypomagnesemia - Magnesium improved to 1.9, repeat in the morning Normocytic anemia Acute drop likely dilutional. No signs of active bleeding. Monitor Hg. Transaminitis Improved. Likely due to dehydration. IV hydration as above. Abdomen is benign. Consider Liver/GB imaging if labs dont improve. Lung malignancy: Oncology consult. History of AFib: Not on any blood thinners or rate control/ anti-arrhythmics. Resolved: Lactic acidosis, Hyperbilirubinemia I have reviewed the following information security consultant notes: Heme-onc note I have reviewed the results of the following tests: CBC and BMP I have ordered the following tests: CBC, BMP, magnesium daily I have discussed the care of this patient with the following independent historian: Patient and her I have independently interpreted the following test below: As above I have discussed the management of this patient with the following physician: DVT ppx: Lovenox Code status: Full code Anticipated discharge place: TBD, PT OT consulted Anticipated discharge time: TBD Objective - Vital Signs Vital signs: Vital Signs Temp 99.3 F 12/01/24 12:00 Pulse 79 12/01/24 12:20 Resp 18 12/01/24 12:00 BP 130/80 12/01/24 12:00 Pulse Ox 98 12/01/24 12:00 FiO2 Intake & Output 11/30/24 12/01/24 12/01/24 18:59 06:59 18:59 Intake Total 200 40 40 Balance 200 40 40 Weight 52.8 kg Intake: IV 40 40 Invasive Line 1 20 20 Invasive Line 2 20 20 Oral 200 Other: Voiding Method Toilet Toilet # Voids 1 1 - Labs CBC & Chem 7: 12/01/24 06:28 12/01/24 06:28 Labs: Abnormal Lab Results - Last 24 Hours (Table) 12/01/24 12/01/24 Range/Units 06:28 06:28 WBC 1.68 L (4.50-10.00) 10*3/uL RBC 3.70 L (4.10-5.20) 10*6/uL Hgb 11.1 L (12.0-15.0) g/dL Hct 34.2 L (37.2-46.3) % Sodium 130 L (137-145) mmol/L Potassium 3.0 L (3.5-5.1) mmol/L Chloride 88 L (98-107) mmol/L Carbon Dioxide 36 H (22-30) mmol/L Microbiology - Last 24 Hours (Table) 11/29/24 13:10 Blood Culture - Preliminary Blood 11/29/24 11:08 Urine Culture - Final Urine,Voided
[2024-12-01 15:07] LABS: Basophils # (A) 0.02 10*3/uL (0.00-0.10); Basophils % (A) 1.9 %; Eosinophils # (A) 0.01 10*3/uL (0.04-0.35); HCT 29.4 % (37.2-46.3); HGB 9.9 g/dL (12.0-15.0); Lymphocytes # (A) 0.86 10*3/uL (0.90-5.00); Lymphocytes % (A) 83.5 %; MCHC 33.7 g/dL (32.0-37.0); MCV 89.1 fL (80.0-97.0); Mean Platelet Volume 10.9 fL (9.5-12.2); Monocytes # (A) 0.01 10*3/uL (0.20-1.00); Neutrophils % (A) 12.6 %; Platelet Count 181 10*3/uL (140-440); RDW 14.6 % (11.5-14.5)
[2024-12-01 15:08] LABS: WBC 1.03 10*3/uL (4.50-10.00)
[2024-12-01 15:09] LABS: Neutrophils # (A) 0.13 10*3/uL (1.80-7.70)
[2024-12-02 08:14] LABS: HGB 10.2 g/dL (12.0-15.0); MCH 30.4 pg (27.0-32.0); MCHC 32.9 g/dL (32.0-37.0); MCV 92.3 fL (80.0-97.0); Mean Platelet Volume 11.2 fL (9.5-12.2); Platelet Count 142 10*3/uL (140-440); RBC 3.36 10*6/uL (4.10-5.20); RDW 14.6 % (11.5-14.5)
[2024-12-02 08:32] LABS: WBC 0.64 10*3/uL (4.50-10.00)
[2024-12-02 08:35] LABS: ALT 17 U/L (4-34); AST 25 U/L (14-36); African American GFR (CKD) >90 (>60 ml/min/1.73 sqM); Albumin 3.1 g/dL (3.5-5.0); Alkaline Phosphatase 80 U/L (38-126); Anion Gap 6 mmol/L; Blood Urea Nitrogen 13 mg/dL (7-17); Calcium 8.8 mg/dL (8.4-10.2); Carbon Dioxide 38 mmol/L (22-30); Chloride 88 mmol/L (98-107); Glucose 93 mg/dL (74-99); Magnesium 1.1 mg/dL (1.6-2.3); Non-African American GFR(CKD) 82 (>60 ml/min/1.73 sqM); Phosphorus 3.5 mg/dL (2.5-4.5); Potassium 3.1 mmol/L (3.5-5.1); Sodium 132 mmol/L (137-145); Total Bilirubin 1.2 mg/dL (0.2-1.3); Total Protein 5.4 g/dL (6.3-8.2)
--- NOTE | 2024-12-02 08:56 | XR ---
EXAMINATION TYPE: XR chest 1V portable DATE OF EXAM: 12/02/2024 8:49 AM COMPARISON: Multiple radiographs, with the most recent on 11/29/2024, CT chest 09/12/2024, PET/CT 2024 TECHNIQUE: XR chest 1V portable Portable AP radiograph of the chest. CLINICAL INDICATION:Female, 74 years old with history of f/u infiltrate; FINDINGS: Lungs/Pleura: No pneumothorax. Trace right pleural effusion. Similar right basilar opacity measuring up to 2.7 cm related to known pulmonary mass. No new focal consolidation. Pulmonary vascularity: Unremarkable. Heart/mediastinum: Cardiomediastinal silhouette is unremarkable. Atherosclerotic calcifications are seen in the aorta. Musculoskeletal: No acute osseous pathology. IMPRESSION: Similar right basilar opacity measuring up to 2.7 cm related to known pulmonary mass. No new focal co nsolidation. [facility], , 12/02/2024 8:54 AM
[2024-12-02 09:06] LABS: Anisocytosis (M) Present
[2024-12-02] MEDS ORDERED: Potassium Replacement Protocol 1 EACH MISC MISCELLANE PRN (09:06)
[2024-12-02 09:07] LABS: Hypochromasia (M) Present
[2024-12-02] MEDS ORDERED: Magnesium Replacement Protocol 1 EACH MISC MISCELLANE PRN (09:07)
[2024-12-02] MEDS: POTASSIUM CHLORIDE ER 20 MEQ TAB.ER PO SCH (09:14)
[2024-12-02] MEDS: MAGNESIUM SULFATE-D5W PMX 1 GM in DEXTROSE/WATER 1 100ML.BAG IVPB SCH (09:14)
--- NOTE | 2024-12-02 10:29 | P.PN ---
Subjective Progress Note Date: 12/02/24 Hospital Course: 74 year old F with PMH of lung malignancy, AFib not on AC, h/o tobacco abuse p resents to the ED for generalized weakness. She is currently undergoing chemotherapy and radiation, her last session was on Sunday. Patient reports profound weakness that started on associated with chills and hot sweats. She reports 2 episodes on NBNB N/V and 2 episodes of diarrhea that started today. She reports positional lightheadedness. Also reports decreased appetite. These symptoms prompted her to come to the ED. She denies any headache, LE edema, cough, chest pain, shortness of breath, palpitations, changes in urination. She denies numbness or tinging of the extremities. In the ED she underwent extensive evaluation. BP 92/65, HR 100, T 97.6F, RR 18, 92% on RA. CBC, Coag panel, CMP significant for WBC 32.68, Na 133, K 2.3, Cl 92, bicarb 40, BUN 25, glu 115, T. Bili 1.4, AST 53, alk phos 136, total protein 5.9. UA large LE with 40 WBCs. Lactic acid 3.1. COVID, RSV, Flu neg. CXR small right middle lobe infiltrate. Patient was given 2L NS bolus, Vancomycin/Cefepime, Zofr an and admitted for further workup and management. 12/01: Seen and examined at bedside, patient present during exam, she feels weak, has very little appetite, complains of nausea but no vomiting, normal bowel movements. Afebrile. WBC 1.68 this morning, hemoglobin 11.1, sodium 130 stable, potassium 3.0, improved, bicarb 36, improved, creatinine normal. Urine cultures showed skin and urogenital heladio, blood cultures preliminary negative Patient has very minimal oral intake, declined protein shakes as they make her sick, encouraged to increase oral intake 12/02: Abdominal cramping improved, nausea persists but no more vomiting, denies shortness of breath or chest pain. Afebrile, WBC continue to trend down, persistently low sodium and magnesium. Repeat chest x-ray ordered on 12/02 and reviewed independently, showed similar right basilar opacity related to no pulmonary mass and no new focal consolidation. Infectious disease consulted for antibiotic management in the immunocompromised leukopenic patient. Tmax 99.3 on 12/01 Pertinent positives and negatives as discussed above, a complete review of systems was performed and all other systems are negative. Vitals Signs Reviewed. General: [nontoxic], [no distress], [appears at stated age], chronically ill- appearing Derm: [warm], [dry] Head: [atraumatic], [normocephalic], [symmetric] Eyes: [EOMI], [no lid lag], [anicteric sclera] Mouth: [no lip lesion], [mucus membranes moist] Cardiovascular: [S1S2 reg], [no murmur] Lungs: [CTA bilateral], [no rhonchi, no rales] , [no accessory muscle use] Abdominal: [soft], [ nontender to palpation], [no guarding], [no appreciable organomegaly] Ext: [no gross muscle atrophy], [no edema], [no contractures] Neuro: [ CN II-XI grossly intact], [no focal neuro deficits] Psych: [Alert], [oriented], [appropriate affect] Assessment and Plan: SIRS versus sepsis, leukocytosis and tachycardia on admission Leukocytosis, resolved, now leukopenic -No source of infection - UA with pyuria but no symptoms of UTI - Urine cultures growing skin and genitourinary heladio 10-50k, no identified organism -CXR concerning for right middle lobe infiltrate (also the location for malignancy). Repeat chest x-ray ordered on 12/02, showed similar right basilar opacity related to no pulmonary mass and no new focal consolidation -ontinue Vancomycin dosed per pharmacy and Cefepime 2g IV BID, monitor BMP daily, monitor for renal toxicity - MRSA swab pending -ID conuslted. Hypokalemia Hypomagnesemia -Magnesium 4 g, potassium 40 mEq, repeat electrolytes in the morning Hypochloremic hyponatremia Metabolic alkalosis Prerenal azotemia All secondary to dehydration - Continue LR at 130 cc/h, sodium improving - Monitor BMP daily Normocytic anemia Acute drop likely dilutional. No signs of active bleeding. Monitor Hg. Transaminitis Improved. Likely due to dehydration. IV hydration as above. Abdomen is benign. Consider Liver/GB imaging if labs dont improve. Lung malignancy: Oncology consult. History of AFib: Not on any blood thinners or rate control/ anti-arrhythmics. Resolved: Lactic acidosis, Hyperbilirubinemia I have reviewed the following rehabilitation consultant notes: I have reviewed the results of the following tests: CBC and BMP I have ordered the following tests: CBC, BMP, magnesium daily, chest x-ray I have discussed the care of this patient with the following independent historian: Patient , RN I have independently interpreted the following test below: As above including chest x-ray I have discussed the management of this patient with the following physician: DVT ppx: Lovenox Code status: Full code Anticipated discharge place: TBD, PT OT -recommends home vs C Anticipated discharge time: TBD Objective - Vital Signs Vital signs: Vital Signs Temp 98.5 F 12/02/24 08:14 Pulse 100 12/02/24 08:14 Resp 16 12/02/24 08:14 BP 109/65 12/02/24 08:14 Pulse Ox 95 12/02/24 08:14 FiO2 Intake & Output 12/01/24 12/02/24 12/02/24 18:59 06:59 18:59 Intake Total 40 60 180 Balance 40 60 180 Weight 52.8 kg 50 kg Intake: IV 40 60 Invasive Line 1 20 20 Invasive Line 2 20 Invasive Line 3 30 Invasive Line 4 10 Oral 180 Other: Voiding Method Toilet Toilet # Voids 2 1 - Labs CBC & Chem 7: 12/02/24 07:29 12/02/24 07:29 Labs: Abnormal Lab Results - Last 24 Hours (Table) 12/01/24 12/02/24 12/02/24 Range/Units 14:13 07:29 07:29 WBC 1.03 L* 0.64 L* (4.50-10.00) 10*3/uL RBC 3.30 L 3.36 L (4.10-5.20) 10*6/uL Hgb 9.9 L 10.2 L (12.0-15.0) g/dL Hct 29.4 L 31.0 L (37.2-46.3) % Neutrophils # 0.13 L* (1.80-7.70) 10*3/uL Lymphocytes # 0.86 L (0.90-5.00) 10*3/uL Monocytes # 0.01 L (0.20-1.00) 10*3/uL Eosinophils # 0.01 L (0.04-0.35) 10*3/uL Sodium 132 L (137-145) mmol/L Potassium 3.1 L (3.5-5.1) mmol/L Chloride 88 L (98-107) mmol/L Carbon Dioxide 38 H (22-30) mmol/L Magnesium 1.1 L (1.6-2.3) mg/dL Total Protein 5.4 L (6.3-8.2) g/dL Albumin 3.1 L (3.5-5.0) g/dL Microbiology - Last 24 Hours (Table) 11/30/24 11:43 Nasal Screen MRSA/MSSA - Final Nasal Swab 11/29/24 13:10 Blood Culture - Preliminary Blood
[2024-12-02] MEDS: VANCOMYCIN TROUGH DUE 1 EACH MISC MISCELLANE ONE (13:35)
--- NOTE | 2024-12-02 14:00 | CDI ---
Date: 12/02/2024 From: Sissy [email or web address] Email: [email or web address] Admit Date: 11/29/2024 01:14:00 PM Patient Name: Kandis Woodard Visit Number: [id number] Discharge Date: N/A ATTENTION: The Clinical Documentation Specialists (CDI) and [facility] Coding Staff appreciate your assistance in clarifying documentation. Please respond to the clarification below the line at the bottom and electronically sign. The CDI & [facility] Coding staff will review the response and follow-up if needed. Please note: Queries are made part of the Legal Health Record. If you have any questions, please contact the author of this message via ITS. Dr. Maria Del Carmen López, The Registered Dietitian assessment on 12/01/2024 indicates this patient meets criteria for malnutrition, acute, moderate. Based on this information and the findings below, is there an additional diagnosis that is clinically appropriate for this patient? History/Risk Factors: 74-year-old female presented to [facility] ED for evaluation due to generalized weakness and dizziness. PMH: Lung cancer undergoing chemotherapy treatments, atrial fibrillation, hypertension, GERD, former smoker Clinical Indicators: Documentation Location: Electronic Medical Record Current BMI: 20.2 H&P Report (11/29/2024): She is currently undergoing chemotherapy and radiation, her last session was on Sunday. Patient reports profound weakness that started on associated with chills and hot sweats. She reports 2 episodes on NBNB N/V and 2 epis odes of diarrhea that started today. She reports positional lightheadedness. Also reports decreased appetite Registered Dietitian Assessment (12/01/2024): o Malnutrition, acute, moderate o Related to physiological causes increasing nutrient needs as evidenced by lung malignancy undergoing chemo/radiation o Patient visually displayed signs of mild/moderate muscle & subcutaneous fat loss o Nutrition Intake: Poor. Patient Consumed: 0-25%. Poor appetite o Underweight Treatment: Registered Dietitian Consultation Oral Nutrition Supplement(s): Magic Cup BID Oral Intake and Weight Monitoring Is there an additional diagnosis that is clinically appropriate for this patient? [ x] Moderate Protein-Calorie Malnutrition [ ] No additional diagnosis/Not clinically significant [ ] Other condition, please specify [ ] Unable to Determine MTDD
[2024-12-02] MEDS: PROCHLORPERAZINE INJ 10 MG/2 ML VIAL IVP PRN (17:30)
--- NOTE | 2024-12-02 18:05 | P.PN ---
Subjective Progress Note Date: 12/02/24 NO acute events overnight. Pt reporting improvement in breathing. Continues on tx for suspected PNA. WBC 0.64, hgb 10.2, plt 142 Objective - Vital Signs Vital signs: Vital Signs Temp 99.4 F 12/02/24 11:47 Pulse 104 H 12/02/24 13:15 Resp 20 12/02/24 11:47 BP 132/71 12/02/24 11:47 Pulse Ox 98 12/02/24 11:47 FiO2 Intake & Output 12/01/24 12/02/24 12/02/24 18:59 06:59 18:59 Intake Total 40 60 360 Balance 40 60 360 Weight 52.8 kg 50 kg Intake: IV 40 60 Invasive Line 1 20 20 Invasive Line 2 20 Invasive Line 3 30 Invasive Line 4 10 Oral 360 Other: Voiding Method Toilet Toilet # Voids 2 1 - Constitutional General appearance: Present: no acute distress - EENT Eyes: Present: anicteric sclerae, EOMI ENT: Present: hearing grossly normal - Respiratory Details: breathing even and unlabored - Cardiovascular Details: skin warm and dry - Gastrointestinal General gastrointestinal: Present: soft. Absent: tenderness - Integumentary Integumentary: Absent: cyanotic - Psychiatric Psychiatric: Present: A&O x's 3 - Labs CBC & Chem 7: 12/02/24 07:29 12/02/24 07:29 Labs: Abnormal Lab Results - Last 24 Hours (Table) 12/01/24 12/02/24 12/02/24 Range/Units 14:13 07:29 07:29 WBC 1.03 L* 0.64 L* (4.50-10.00) 10*3/uL RBC 3.30 L 3.36 L (4.10-5.20) 10*6/uL Hgb 9.9 L 10.2 L (12.0-15.0) g/dL Hct 29.4 L 31.0 L (37.2-46.3) % Neutrophils # 0.13 L* (1.80-7.70) 10*3/uL Lymphocytes # 0.86 L (0.90-5.00) 10*3/uL Monocytes # 0.01 L (0.20-1.00) 10*3/uL Eosinophils # 0.01 L (0.04-0.35) 10*3/uL Sodium 132 L (137-145) mmol/L Potassium 3.1 L (3.5-5.1) mmol/L Chloride 88 L (98-107) mmol/L Carbon Dioxide 38 H (22-30) mmol/L Magnesium 1.1 L (1.6-2.3) mg/dL Total Protein 5.4 L (6.3-8.2) g/dL Albumin 3.1 L (3.5-5.0) g/dL Microbiology - Last 24 Hours (Table) 11/30/24 11:43 Nasal Screen MRSA/MSSA - Final Nasal Swab 11/29/24 13:10 Blood Culture - Preliminary Blood Assessment and Plan (1) Dehydration Current Visit: Yes Status: Acute Code(s): E86.0 - DEHYDRATION SNOMED Code(s): 37490465 (2) Hypokalemia Current Visit: Yes Status: Acute Code(s): E87.6 - HYPOKALEMIA SNOMED Code(s): 40431579 (3) Hypomagnesemia Current Visit: Yes Status: Acute Code(s): E83.42 - HYPOMAGNESEMIA SNOMED Code(s): 125314055 (4) Pneumonia Current Visit: Yes Status: Acute Code(s): J18.9 - PNEUMONIA, UNSPECIFIED ORGANISM SNOMED Code(s): 743656598 (5) Sepsis Current Visit: Yes Status: Acute Code(s): A41.9 - SEPSIS, UNSPECIFIED ORGANISM SNOMED Code(s): 41642941 Plan: 1. Sepsis due to pneumonia 2. Lung cancer 3. Leukocytosis due to infection and G-CSF 4. Hyponatremia and severe hypokalemia 5. Dehydration Plan: Ms. Woodadr is a very pleasant 74 yo female on carbo/etoposide/keytruda with Dr. 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 Work up with severe hypokalemia, hyponatremia, leukocytosis, and RLL opacity concerning for PNA. - Antibiotics as per ID - Hold chemotherapy until acutely recovered - Antiemetics and hydration - Electrolyte replacement - Monitor CBC. WBC today 0.64. S/p G-CSF on 11/27/24. Would expect increase in WBCs over the next 1-3 days. No further G-CSF at this time Discussed with pt and she was agreeable. All questions answered.
--- NOTE | 2024-12-02 21:20 | P.CONS ---
History of Present Illness - Reason for Consult Consult date: 12/02/24 SIRS/sepsis on chemo Requesting physician: Maria Del Carmen López - Chief Complaint Weakness x few days - History of Present Illness Patient is a 74-year-old female with a past medical history difficult for reflux hypertension pneumonia atrial fibrillation history of large cell lung cancer for the patient has been on chemotherapy with the last chemotherapy on 11/24/2024 presenting to the hospital 3 days ago for evaluation of generalized weakness patient mention has symptoms started after her last chemotherapy on Sunday started having some chills did have 2 episode of vomiting and diarrhea feeling lightheaded did have decreased appetite for the patient presented to hospital patient denies significant headache or URI symptoms no chest pain shortness of breath she did have some cough but not bringing any sputum no abdominal pain no further diarrhea or urinary symptoms on presentation the hospital the patient has been afebrile with 1 low-grade fever of 99 F last night patient has been tachycardic but not hypotensive or hypoxic currently in not requiring any supplemental oxygen patient did have white count of 32.68 on admission that is down to 0.64 did have a creatinine 0.74 liver enzymes mildly elevated urine was positive urine culture have been negative patient did have negative influenza RSV and COVID PCR MRSA nasal screen has been negative blood cultures currently pending sputum has not been collected patient did have a chest x-ray that was reported for small right middle lobe infiltrate concerning for pneumonic infiltrate patient has been treated with cefepime and vancomycin infectious disease was consulted today after the patient has been the hospital for 3 days concerning for SIRS versus sepsis and with chemotherapy patient Review of Systems Positive point and negatives has been mentioned in the HPI, complete review of systems was performed and all other systems are negative 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, lymph History of Any Multi-Drug Resistant Organisms: None Reported Past Surgical History: Breast Surgery Additional Past Surgical History / Comment(s): left breast lumpectomy x 2 "precancerous" Past Anesthesia/Blood Transfusion Reactions: No Reported Reaction, Family History of Problems w/ Anesthesia Additional Past Anesthesia/Blood Transfusion Reaction / Comm: daughter has hard time coming out of anesthesia Past Psychological History: Depression Smoking Status: Former smoker Past Alcohol Use History: Rare Past Drug Use History: None Reported - Past Family History Brother(s) Family Medical History: Pulmonary Embolus Mother Additional Family Medical History / Comment(s): from Alzheimer's Father Additional Family Medical History / Comment(s): from unknown cause, possibly his heart Medications and Allergies Home Medications Medication Instructions Recorded Confirmed Type HYDROcodone/APAP 10-325MG [Joes 1 tab PO TID PRN 30 Days #90 tab 11/27/24 11/29/24 Rx 10-325] traMADol HCL 50 mg PO Q6H PRN 30 Days #90 tab 11/27/24 11/29/24 Rx Ondansetron [Zofran] 4 - 8 mg PO Q4H PRN 11/29/24 11/29/24 History Allergies Allergy/AdvReac Type Severity Reaction Status Date / Time No Known Allergies Allergy Verified 11/29/24 13:04 Physical Exam Vitals: Vital Signs Temp Pulse Pulse Resp BP Pulse Ox 12/02/24 11:47 99.4 F 104 H 20 132/71 98 12/02/24 08:14 98.5 F 100 16 109/65 95 12/02/24 03:55 98.6 F 93 17 132/83 98 12/01/24 23:05 99 F 85 16 118/73 97 12/01/24 20:05 98.8 F 92 17 120/64 99 12/01/24 16:00 99.1 F 88 18 130/81 93 L 12/01/24 12:20 79 12/01/24 12:00 99.3 F 79 18 130/80 98 Intake and Output 12/01/24 12/02/24 12/02/24 22:59 06:59 14:59 Intake Total 20 40 180 Balance 20 40 180 Intake: IV 20 40 Invasive Line 1 10 10 Invasive Line 3 10 20 Invasive Line 4 10 Oral 180 Other: Voiding Method Toilet Toilet Toilet # Voids 2 1 Weight 50 kg GENERAL DESCRIPTION: Elderly female lying in bed, no distress. No tachypnea or accessory muscle of respiration use. HEENT: Shows Pallor , no scleral icterus. Oral mucous membrane is dry. NECK: Trachea central, no thyromegaly. LUNGS: Unlabored breathing. Decreased breath sound at the base HEART: S1, S2, regular rate and rhythm. No loud murmur ABDOMEN: Soft, no tenderness , guarding or rigidity, no organomegaly EXTREMITIES: No edema of feet. SKIN: No rash, no masses palpable. NEUROLOGICAL: The patient is awake, alert, oriented x3, mood and affect normal. Results CBC & Chem 7: 12/02/24 07:29 12/02/24 07:29 Labs: Abnormal Lab Results - Last 24 Hours (Table) 12/01/24 12/02/24 12/02/24 Range/Units 14:13 07:29 07:29 WBC 1.03 L* 0.64 L* (4.50-10.00) 10*3/uL RBC 3.30 L 3.36 L (4.10-5.20) 10*6/uL Hgb 9.9 L 10.2 L (12.0-15.0) g/dL Hct 29.4 L 31.0 L (37.2-46.3) % Neutrophils # 0.13 L* (1.80-7.70) 10*3/uL Lymphocytes # 0.86 L (0.90-5.00) 10*3/uL Monocytes # 0.01 L (0.20-1.00) 10*3/uL Eosinophils # 0.01 L (0.04-0.35) 10*3/uL Sodium 132 L (137-145) mmol/L Potassium 3.1 L (3.5-5.1) mmol/L Chloride 88 L (98-107) mmol/L Carbon Dioxide 38 H (22-30) mmol/L Magnesium 1.1 L (1.6-2.3) mg/dL Total Protein 5.4 L (6.3-8.2) g/dL Albumin 3.1 L (3.5-5.0) g/dL Microbiology - Last 24 Hours (Table) 11/30/24 11:43 Nasal Screen MRSA/MSSA - Final Nasal Swab 11/29/24 13:10 Blood Culture - Preliminary Blood Assessment and Plan (1) SIRS (systemic inflammatory response syndrome) Current Visit: Yes Status: Acute Code(s): R65.10 - SIRS OF NON-INFECTIOUS ORIGIN W/O ACUTE ORGAN DYSFUNCTION SNOMED Code(s): 063843943 Plan: 1patient presented hospital generalized weakness in this patient currently on chemotherapy symptoms started after last chemo with decreased oral intake could have been related to side effects from chemotherapy patient did have some infiltrate on the right middle lobe concerning for pneumonic infiltrate on chest x-ray however she did not have significant cough or sputum production to be suspicious for the same did have positive UA with a culture negative blood culture negative, nasal screen for an MRSA has been negative 2-we will obtain procalcitonin and CRP try to obtain sputum if possible 3-May continue cefepime however discontinue vancomycin We will follow on clinical condition and cultures to further adjust medication if needed Thank you for this consultation we will follow the patient along with you Dictation was produced using [employer] dictation software. please excuse any grammatical, word or spelling errors. Time with Patient: Greater than 30
[2024-12-03] MEDS ORDERED: VANCOMYCIN 1,000 MG in SODIUM CHLORIDE 0.9% 250 ML IVPB SCH (01:00)
[2024-12-03 07:03] LABS: HCT 28.7 % (37.2-46.3); HGB 9.6 g/dL (12.0-15.0); MCH 30.6 pg (27.0-32.0); MCHC 33.4 g/dL (32.0-37.0); MCV 91.4 fL (80.0-97.0); Mean Platelet Volume 10.9 fL (9.5-12.2); RBC 3.14 10*6/uL (4.10-5.20); RDW 14.5 % (11.5-14.5)
[2024-12-03 07:27] LABS: ALT 16 U/L (4-34); AST 21 U/L (14-36); African American GFR (CKD) >90 (>60 ml/min/1.73 sqM); Albumin 2.8 g/dL (3.5-5.0); Alkaline Phosphatase 85 U/L (38-126); Anion Gap 5 mmol/L; Blood Urea Nitrogen 10 mg/dL (7-17); C Reactive Protein 2.5 mg/dL (<1.0); Calcium 8.7 mg/dL (8.4-10.2); Carbon Dioxide 38 mmol/L (22-30); Chloride 88 mmol/L (98-107); Glucose 87 mg/dL (74-99); Magnesium 1.5 mg/dL (1.6-2.3); Non-African American GFR(CKD) 79 (>60 ml/min/1.73 sqM); Phosphorus 3.4 mg/dL (2.5-4.5); Potassium 3.1 mmol/L (3.5-5.1); Sodium 131 mmol/L (137-145); Total Bilirubin 0.7 mg/dL (0.2-1.3); Total Protein 5.1 g/dL (6.3-8.2)
[2024-12-03 08:24] LABS: WBC 0.47 10*3/uL (4.50-10.00)
[2024-12-03] MEDS: POTASSIUM CHLORIDE ER 20 MEQ TAB.ER PO SCH (09:18)
[2024-12-03] MEDS: MAGNESIUM SULFATE-D5W PMX 1 GM in DEXTROSE/WATER 1 100ML.BAG IVPB SCH (09:19)
[2024-12-03] MEDS: POTASSIUM CHLORIDE 10 MEQ in WATER FOR INJECTION 1 100ML.BAG IVPB SCH (09:19)
[2024-12-03 10:47] LABS: Anisocytosis (M) Present; Hypochromasia (M) Present
--- NOTE | 2024-12-03 10:47 | P.PN ---
Subjective Progress Note Date: 12/03/24 Hospital Course: 74 year old F with PMH of lung malignancy, AFib not on AC, h/o tobacco abuse p resents to the ED for generalized weakness. She is currently undergoing chemotherapy and radiation, her last session was on Sunday. Patient reports profound weakness that started on associated with chills and hot sweats. She reports 2 episodes on NBNB N/V and 2 episodes of diarrhea that started today. She reports positional lightheadedness. Also reports decreased appetite. These symptoms prompted her to come to the ED. She denies any headache, LE edema, cough, chest pain, shortness of breath, palpitations, changes in urination. She denies numbness or tinging of the extremities. In the ED she underwent extensive evaluation. BP 92/65, HR 100, T 97.6F, RR 18, 92% on RA. CBC, Coag panel, CMP significant for WBC 32.68, Na 133, K 2.3, Cl 92, bicarb 40, BUN 25, glu 115, T. Bili 1.4, AST 53, alk phos 136, total protein 5.9. UA large LE with 40 WBCs. Lactic acid 3.1. COVID, RSV, Flu neg. CXR small right middle lobe infiltrate. Patient was given 2L NS bolus, Vancomycin/Cefepime, Zofr an and admitted for further workup and management. 12/01: Seen and examined at bedside, patient present during exam, she feels weak, has very little appetite, complains of nausea but no vomiting, normal bowel movements. Afebrile. WBC 1.68 this morning, hemoglobin 11.1, sodium 130 stable, potassium 3.0, improved, bicarb 36, improved, creatinine normal. Urine cultures showed skin and urogenital heladio, blood cultures preliminary negative Patient has very minimal oral intake, declined protein shakes as they make her sick, encouraged to increase oral intake 12/02: Abdominal cramping improved, nausea persists but no more vomiting, denies shortness of breath or chest pain. Afebrile, WBC continue to trend down, persistently low sodium and magnesium. Repeat chest x-ray ordered on 12/02 and reviewed independently, showed similar right basilar opacity related to no pulmonary mass and no new focal consolidation. Infectious disease consulted for antibiotic management in the immunocompromised leukopenic patient. Tmax 99.3 on 12/01 12/03: Complains of constant generalized abdominal pain especially across the lower abdomen, improved with pain medications. Has continuous nausea but no vom iting, does not remember when was the last bowel movement. CT abdomen pelvis with contrast ordered. ID following, recommended to discontinue vancomycin and continue with cefepime in the meantime overall feels worse than yesterday. Tmax 99.4 on 12/03 4 a.m., WBC count continues to drop to 0.47, hemoglobin stable at 9.6, sodium stable at 131, persistently low potassium 3.1 and magnesium 1.5, replace per protocol. Pertinent positives and negatives as discussed above, a complete review of systems was performed and all other systems are negative. Vitals Signs Reviewed. General: [nontoxic], [no distress], [appears at stated age], chronically ill- appearing Derm: [warm], [dry] Head: [atraumatic], [normocephalic], [symmetric] Eyes: [EOMI], [no lid lag], [anicteric sclera] Mouth: [no lip lesion], [mucus membranes moist] Cardiovascular: [S1S2 reg], [no murmur] Lungs: [CTA bilateral], [no rhonchi, no rales] , [no accessory muscle use] Abdominal: [soft], [generalized tenderness], [no guarding], [no appreciable organomegaly] Ext: [no gross muscle atrophy], [no edema], [no contractures] Neuro: [ CN II-XI grossly intact], [no focal neuro deficits] Psych: [Alert], [oriented], [appropriate affect] Assessment and Plan: SIRS versus sepsis, leukocytosis and tachycardia on admission Leukocytosis, resolved, now leukopenic -No source of infection - UA with pyuria but no symptoms of UTI - Urine cultures growing skin and genitourinary heladio 10-50k, no identified organism -CXR concerning for right middle lobe infiltrate (also the location for malignancy). Repeat chest x-ray ordered on 12/02, showed similar right basilar opacity related to no pulmonary mass and no new focal consolidation Vancomycin discontinued, continue Cefepime 2g IV BID, -Monitor CBC daily -ID conuslted., MRSA swab negative, vancomycin discontinued Generalized abdominal pain -CT abdomen pelvis with contrast ordered and pending -Continue [place] 10 3 times daily as needed -Continue IV fluids Hypokalemia Hypomagnesemia -Magnesium 4 g, potassium 40 mEq, repeat electrolytes in the morning Hypochloremic hyponatremia Metabolic alkalosis Prerenal azotemia All secondary to dehydration - Continue LR at 130 cc/h, sodium stable 131 - Monitor BMP daily Normocytic anemia Acute drop likely dilutional. No signs of active bleeding. Monitor Hg. Transaminitis Improved. Likely due to dehydration. IV hydration as above. Abdomen is benign. Consider Liver/GB imaging if labs dont improve. Acute moderate protein calorie malnutrition -RD following, patient encouraged to increase oral intake, Magic cup twice daily Lung malignancy: Oncology consult. History of AFib: Not on any blood thinners or rate control/ anti-arrhythmics. Resolved: Lactic acidosis, Hyperbilirubinemia I have reviewed the following principal consultant notes: ID, oncology I have reviewed the results of the following tests: CBC and BMP I have ordered the following tests: CBC, BMP, magnesium daily, CT abdomen pelvis with contrast I have discussed the care of this patient with the following independent historian: Patient , RN I have independently interpreted the following test below I have discussed the management of this patient with the following physician: DVT ppx: Lovenox Code status: Full code Anticipated discharge place: TBD, PT OT -recommends home vs [facility] Anticipated discharge time: TBD Objective - Vital Signs Vital signs: Vital Signs Temp 99.4 F 12/03/24 04:00 Pulse 111 H 12/03/24 04:00 Resp 19 12/03/24 04:00 BP 134/75 12/03/24 04:00 Pulse Ox 98 12/03/24 04:00 FiO2 Intake & Output 12/02/24 12/03/24 12/03/24 18:59 06:59 18:59 Intake Total 360 Balance 360 Weight 50 kg 53 kg Intake: Oral 360 Other: Voiding Method Toilet Toilet # Voids 2 4 - Labs CBC & Chem 7: 12/03/24 06:40 12/03/24 06:40 Labs: Abnormal Lab Results - Last 24 Hours (Table) 12/03/24 12/03/24 12/03/24 Range/Units 06:40 06:40 06:40 WBC 0.47 L* (4.50-10.00) 10*3/uL RBC 3.14 L (4.10-5.20) 10*6/uL Hgb 9.6 L (12.0-15.0) g/dL Hct 28.7 L (37.2-46.3) % Sodium 131 L (137-145) mmol/L Potassium 3.1 L (3.5-5.1) mmol/L Chloride 88 L (98-107) mmol/L Carbon Dioxide 38 H (22-30) mmol/L Magnesium 1.5 L (1.6-2.3) mg/dL C-Reactive Protein 2.5 H (<1.0) mg/dL Total Protein 5.1 L (6.3-8.2) g/dL Albumin 2.8 L (3.5-5.0) g/dL Procalcitonin 0.86 H (0.02-0.50) ng/mL Microbiology - Last 24 Hours (Table) 11/29/24 13:10 Blood Culture - Preliminary Blood 11/30/24 11:43 Nasal Screen MRSA/MSSA - Final Nasal Swab
[2024-12-03 10:48] LABS: Platelet Count 98 10*3/uL (140-440)
--- NOTE | 2024-12-03 11:49 | CT ---
EXAMINATION TYPE: CT abdomen pelvis w con CT DLP: 585.7 mGycm, Automated exposure control for dose reduction was used. DATE OF EXAM: 12/03/2024 11:34 AM COMPARISON: PET CT 09/11/2024, 04/18/2024, CT chest abdomen pelvis 12/08/2021, CT chest 09/12/2024 CLINICAL INDICATION:Female, 74 years old with history of Abdominal pain; abd pain. History of breast/ lymph cancer TECHNIQUE: Standard CT of the abdomen and pelvis following the administration of 100 cc of Isovue 3 00 IV contrast material. Coronal and sagittal reformats were performed. FINDINGS: LOWER CHEST: Redemonstration of a right lower lobe 2.7 cm irregular pulmonary nodule (series 201, jose ge 10). Small right pleural effusion. Patulous visualized distal esophagus with gas and debris. Mild cardiomegaly. Patient size of right epicardial 1.1 cm lymph node. Previously measured up to 0.7 cm. ABDOMEN LIVER: Multiple subtle ill-defined hypodense small lesions demonstrated throughout the liver. Largest appears to be in the anterior right hepatic lobe measuring up to 1.1 cm (series 201, image 24). GALLBLADDER AND BILE DUCTS: Unremarkable. PANCREAS: Unremarkable. SPLEEN: Unremarkable. ADRENAL GLANDS: Unremarkable. KIDNEYS AND URETERS: No evidence of hydronephrosis. The kidneys enhance symmetrically. Right renal lo wer pole 1.1 cm cyst. No follow up recommended. Nonobstructive right renal lower pole 7 mm calculus. Nonobstructive left renal lower pole 2.5 mm calculus. Contrast is demonstrated within both collecting systems on the delayed phase. PELVIS BLADDER: Unremarkable REPRODUCTIVE: Unremarkable. ABDOMEN & PELVIS STOMACH AND BOWEL: Stomach and duodenum are unremarkable. Residual contrast is demonstrated within th e colon from prior exam. Circumferential wall thickening of the distal transverse colon measuring up to 1 cm (series 2 and 1, 25). No surrounding fat stranding. No evidence of bowel obstruction. PERITONEUM: No evidence of pneumoperitoneum. Trace free fluid in the pelvis. VASCULATURE: Mild atherosclerotic calcifications are present throughout the abdominal aorta and its b ranches. No evidence of aortic aneurysm. MUSCULOSKELETAL: No acute osseous abnormalities. Mild multilevel degenerative disc disease. No aggres sive osseous lesion. LYMPH NODES: No evidence for lymphadenopathy within the abdomen or pelvis. SOFT TISSUE/ABDOMINAL WALL: Gas identified within the anterior abdominal wall subcutaneous tissues anders gilmore from medication injection. IMPRESSION: 1. Circumferential wall thickening of the distal transverse colon which can be seen with colitis. 2. Development of multiple small hypodense nodules throughout the liver highly concerning for metasta sis. 3. Right lower lobe irregular pulmonary nodule redemonstrated and concerning for malignancy/metastasi s. Correlation with prior sampling results is recommended. 4. Increasing size of right epicardial lymph node concerning for metastasis. 5. Small right pleural effusion. 6. Patulous appearance of the esophagus with gas and debris. 7. Nonobstructive bilateral renal calculi. [facility], , 12/03/2024 11:47 AM
[2024-12-03] MEDS: ONDANSETRON 4 MG/2 ML VIAL IVP PRN (16:27)
[2024-12-03] MEDS: metroNIDAZOLE 500 MG TAB PO SCH (16:27)
[2024-12-03] MEDS: LORazepam 0.5 MG TAB PO SCH (16:27)
--- NOTE | 2024-12-03 17:31 | P.PN ---
Subjective Progress Note Date: 12/03/24 Pis reporting pain and persisting nausea that is exacerbated with eating. Denies vomiting. Continues on tx for suspected PNA. WBC 0.47, hgb 9.6, plt 98 Objective - Vital Signs Vital signs: Vital Signs Temp 98.6 F 12/03/24 08:00 Pulse 107 H 12/03/24 08:00 Resp 18 12/03/24 08:00 BP 118/78 12/03/24 08:00 Pulse Ox 98 12/03/24 08:00 FiO2 Intake & Output 12/02/24 12/03/24 12/03/24 18:59 06:59 18:59 Intake Total 360 Balance 360 Weight 50 kg 53 kg Intake: Oral 360 Other: Voiding Method Toilet Toilet Toilet # Voids 2 4 1 - Constitutional General appearance: Present: no acute distress - EENT Eyes: Present: anicteric sclerae, EOMI ENT: Present: hearing grossly normal - Respiratory Details: breathing is even and unlabored - Cardiovascular Details: skin warm and dry - Gastrointestinal General gastrointestinal: Present: soft. Absent: tenderness - Integumentary Integumentary: Absent: cyanotic, jaundiced - Neurologic Neurologic: Present: CNII-XII intact - Psychiatric Psychiatric: Present: A&O x's 3 - Labs CBC & Chem 7: 12/03/24 06:40 12/03/24 06:40 Labs: Abnormal Lab Results - Last 24 Hours (Table) 12/03/24 12/03/24 12/03/24 Range/Units 06:40 06:40 06:40 WBC 0.47 L* (4.50-10.00) 10*3/uL RBC 3.14 L (4.10-5.20) 10*6/uL Hgb 9.6 L (12.0-15.0) g/dL Hct 28.7 L (37.2-46.3) % Plt Count 98 L (140-440) 10*3/uL Sodium 131 L (137-145) mmol/L Potassium 3.1 L (3.5-5.1) mmol/L Chloride 88 L (98-107) mmol/L Carbon Dioxide 38 H (22-30) mmol/L Magnesium 1.5 L (1.6-2.3) mg/dL C-Reactive Protein 2.5 H (<1.0) mg/dL Total Protein 5.1 L (6.3-8.2) g/dL Albumin 2.8 L (3.5-5.0) g/dL Procalcitonin 0.86 H (0.02-0.50) ng/mL Microbiology - Last 24 Hours (Table) 11/29/24 13:10 Blood Culture - Preliminary Blood 11/30/24 11:43 Nasal Screen MRSA/MSSA - Final Nasal Swab - Imaging and Cardiology Chest x-ray: report reviewed CT scan - abdomen: report reviewed CT scan - pelvis: report reviewed Assessment and Plan (1) Dehydration Current Visit: Yes Status: Acute Code(s): E86.0 - DEHYDRATION SNOMED Cod e(s): 92691865 (2) Hypokalemia Current Visit: Yes Status: Acute Code(s): E87.6 - HYPOKALEMIA SNOMED Code(s): 42792832 (3) Hypomagnesemia Current Visit: Yes Status: Acute Code(s): E83.42 - HYPOMAGNESEMIA SNOMED Code(s): 315727989 (4) Pneumonia Current Visit: Yes Status: Acute Code(s): J18.9 - PNEUMONIA, UNSPECIFIED ORGANISM SNOMED Code(s): 922894945 (5) Sepsis Current Visit: Yes Status: Acute Code(s): A41.9 - SEPSIS, UNSPECIFIED ORGANISM SNOMED Code(s): 53759403 Plan: 1. Sepsis due to pneumonia 2. Lung cancer 3. Leukocytosis due to infection and G-CSF 4. Hyponatremia and severe hypokalemia 5. Dehydration Plan: Ms. Woodard is a very pleasant 74 yo female on carbo/etoposide/keytruda with Dr. 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 Work up with severe hypokalemia, hyponatremia, leukocytosis, and RLL opacity concerning for PNA. - Antibiotics as per ID - Hold chemotherapy until acutely recovered - Antiemetics and hydration - Electrolyte replacement - Monitor CBC. WBC today 0.47. S/p G-CSF on 11/27/24. Would expect increase in WBCs over the next cpl days. No further G-CSF at this time - CT abdomen and pelvis was obtained showing circumferential wall thickening of the distal transverse colon. Development of multiple small hypodense nodules throughout the liver. Right lower lobe irregular pulmonary nodule redemonstrated. Increasing size of right epicardial lymph node. Small right pleural effusion. Patulous appearance of the esophagus with gas and debris. - Ativan started for anticipatory nausea. Soft food diet. Will continue to follow Discussed with pt and she was agreeable. All questions answered. Doctor attests: I performed a history and physical examination of this patient, developed impression and plan of care. Discussed with dictator. I agree with dictators note, documented as a scribe.
[2024-12-03] MEDS: IBUPROFEN 400 MG TAB PO PRN (22:23)
[2024-12-04 06:45] LABS: HCT 26.5 % (37.2-46.3); HGB 8.7 g/dL (12.0-15.0); Immature Platelet Fraction 4.5 % (1.1-6.1); MCHC 32.8 g/dL (32.0-37.0); MCV 91.4 fL (80.0-97.0); Mean Platelet Volume 11.1 fL (9.5-12.2); RDW 14.1 % (11.5-14.5)
[2024-12-04 07:17] LABS: ALT 14 U/L (4-34); AST 20 U/L (14-36); African American GFR (CKD) >90 (>60 ml/min/1.73 sqM); Albumin 2.7 g/dL (3.5-5.0); Alkaline Phosphatase 80 U/L (38-126); Anion Gap 3 mmol/L; Blood Urea Nitrogen 10 mg/dL (7-17); Calcium 8.8 mg/dL (8.4-10.2); Carbon Dioxide 38 mmol/L (22-30); Chloride 89 mmol/L (98-107); Glucose 79 mg/dL (74-99); Magnesium 1.4 mg/dL (1.6-2.3); Non-African American GFR(CKD) 82 (>60 ml/min/1.73 sqM); Phosphorus 2.9 mg/dL (2.5-4.5); Potassium 3.1 mmol/L (3.5-5.1); Sodium 130 mmol/L (137-145); Total Bilirubin 0.7 mg/dL (0.2-1.3); Total Protein 4.7 g/dL (6.3-8.2)
[2024-12-04 08:18] LABS: WBC 1.08 10*3/uL (4.50-10.00)
[2024-12-04] MEDS: polyethylene glycoL 3350 17 GM POWD.PACK PO SCH (08:58)
[2024-12-04] MEDS: ACETAMINOPHEN TAB 325 MG TAB PO PRN (08:58)
[2024-12-04] MEDS: MAGNESIUM SULFATE-D5W PMX 1 GM in DEXTROSE/WATER 1 100ML.BAG IVPB SCH (08:59)
[2024-12-04] MEDS: POTASSIUM CHLORIDE 10 MEQ in WATER FOR INJECTION 1 100ML.BAG IVPB SCH (08:59)
--- NOTE | 2024-12-04 10:14 | P.PN ---
Subjective Progress Note Date: 12/03/24 Principal diagnosis: Reason for follow-up is leukopenia/colitis Patient is a 74-year-old female with a past medical history difficult for reflux hypertension pneumonia atrial fibrillation history of large cell lung cancer for the patient has been on chemotherapy with the last chemotherapy on 11/24/2024 presenting to the hospital for evaluation of generalized weakness patient has been treated with broad-spectrum antibiotics infectious disease consulted for sepsis. On today's evaluation that is 12/03/2024,the patient denies any fever or any chills, patient is breathing comfortably on room air, the patient denies chest pain shortness of breath and no significant cough, patient denies nausea vomiting did have some diarrhea. Patient white count is 0.47 creatinine 0.76, procalcitonin 0.86, CT abdominal pelvis came back positive with distal transverse colon colitis Objective - Vital Signs Vital signs: Vital Signs Temp 98.6 F 12/03/24 08:00 Pulse 107 H 12/03/24 08:00 Resp 18 12/03/24 08:00 BP 118/78 12/03/24 08:00 Pulse Ox 98 12/03/24 08:00 FiO2 Intake & Output 12/02/24 12/03/24 12/03/24 18:59 06:59 18:59 Intake Total 360 Balance 360 Weight 50 kg 53 kg Intake: Oral 360 Other: Voiding Method Toilet Toilet Toilet # Voids 2 4 1 - Exam GENERAL DESCRIPTION: An elderly female lying in bed in no distress RESPIRATORY SYSTEM: Unlabored breathing , decreased breath sounds at bases HEART: S1 S2 regular rate and rhythm , ABDOMEN: Soft , no tenderness EXTREMITIES: No edema feet - Labs CBC & Chem 7: 12/04/24 05:49 12/04/24 05:46 Labs: Abnormal Lab Results - Last 24 Hours (Table) 12/03/24 12/03/24 12/03/24 Range/Units 06:40 06:40 06:40 WBC 0.47 L* (4.50-10.00) 10*3/uL RBC 3.14 L (4.10-5.20) 10*6/uL Hgb 9.6 L (12.0-15.0) g/dL Hct 28.7 L (37.2-46.3) % Plt Count 98 L (140-440) 10*3/uL Sodium 131 L (137-145) mmol/L Potassium 3.1 L (3.5-5.1) mmol/L Chloride 88 L (98-107) mmol/L Carbon Dioxide 38 H (22-30) mmol/L Magnesium 1.5 L (1.6-2.3) mg/dL C-Reactive Protein 2.5 H (<1.0) mg/dL Total Protein 5.1 L (6.3-8.2) g/dL Albumin 2.8 L (3.5-5.0) g/dL Procalcitonin 0.86 H (0.02-0.50) ng/mL Microbiology - Last 24 Hours (Table) 11/29/24 13:10 Blood Culture - Preliminary Blood Assessment and Plan (1) SIRS (systemic inflammatory response syndrome) Current Visit: Yes Status: Acute Code(s): R65.10 - SIRS OF NON-INFECTIOUS ORIGIN W/O ACUTE ORGAN DYSFUNCTION SNOMED Code(s): 411063646 (2) Colitis Current Visit: Yes Status: Acute Code(s): K52.9 - NONINFECTIVE GASTROENTERITIS AND COLITIS, UNSPECIFIED SNOMED Code(s): 31035769 Plan: 1patient presented hospital generalized weakness in this patient currently on chemotherapy symptoms started after last chemo with decreased oral intake could have been related to side effects from chemotherapy patient did have some infiltrate on the right middle lobe concerning for pneumonic infiltrate on chest x-ray however she did not have significant cough or sputum production to be suspicious for the same did have positive UA with a culture negative blood culture negative, nasal screen for an MRSA has been negative 2-patient did have mildly elevated procalcitonin, CT abdominal pelvis came back positive concerning for colitis 3-we will continue cefepime add Flagyl and monitor clinical course closely Dictation was produced using [employer] dictation software. please excuse any grammatical, word or spelling errors. Time with Patient: Less than 30
--- NOTE | 2024-12-04 11:11 | P.PN ---
Subjective Progress Note Date: 12/04/24 Hospital Course: 74 year old F with PMH of lung malignancy, AFib not on AC, h/o tobacco abuse p resents to the ED for generalized weakness. She is currently undergoing chemotherapy and radiation, her last session was on Sunday. Patient reports profound weakness that started on associated with chills and hot sweats. She reports 2 episodes on NBNB N/V and 2 episodes of diarrhea that started today. She reports positional lightheadedness. Also reports decreased appetite. These symptoms prompted her to come to the ED. She denies any headache, LE edema, cough, chest pain, shortness of breath, palpitations, changes in urination. She denies numbness or tinging of the extremities. In the ED she underwent extensive evaluation. BP 92/65, HR 100, T 97.6F, RR 18, 92% on RA. CBC, Coag panel, CMP significant for WBC 32.68, Na 133, K 2.3, Cl 92, bicarb 40, BUN 25, glu 115, T. Bili 1.4, AST 53, alk phos 136, total protein 5.9. UA large LE with 40 WBCs. Lactic acid 3.1. COVID, RSV, Flu neg. CXR small right middle lobe infiltrate. Patient was given 2L NS bolus, Vancomycin/Cefepime, Zofr an and admitted for further workup and management. 12/01: Seen and examined at bedside, patient present during exam, she feels weak, has very little appetite, complains of nausea but no vomiting, normal bowel movements. Afebrile. WBC 1.68 this morning, hemoglobin 11.1, sodium 130 stable, potassium 3.0, improved, bicarb 36, improved, creatinine normal. Urine cultures showed skin and urogenital heladio, blood cultures preliminary negative Patient has very minimal oral intake, declined protein shakes as they make her sick, encouraged to increase oral intake 12/02: Abdominal cramping improved, nausea persists but no more vomiting, denies shortness of breath or chest pain. Afebrile, WBC continue to trend down, persistently low sodium and magnesium. Repeat chest x-ray ordered on 12/02 and reviewed independently, showed similar right basilar opacity related to no pulmonary mass and no new focal consolidation. Infectious disease consulted for antibiotic management in the immunocompromised leukopenic patient. Tmax 99.3 on 12/01 12/03: Complains of constant generalized abdominal pain especially across the lower abdomen, improved with pain medications. Has continuous nausea but no vom iting, does not remember when was the last bowel movement. CT abdomen pelvis with contrast ordered. ID following, recommended to discontinue vancomycin and continue with cefepime in the meantime overall feels worse than yesterday. Tmax 99.4 on 12/03 4 a.m., WBC count continues to drop to 0.47, hemoglobin stable at 9.6, sodium stable at 131, persistently low potassium 3.1 and magnesium 1.5, replace per protocol. 12/04: Feels somewhat better today, abdominal pain persists, patient had a regular bowel movement this morning. She was able to finish all her cereal and milk this morning. She mentioned that she has nighttime hot flashes and now complains of migraine headaches, requested Excedrin that she usually takes. She was informed on the results of the CT scan showing colitis and concern for liver metastasis as well as increasing size of the right epicardial lymph node. ID added Flagyl 500 mg p.o. 3 times daily for colitis coverage Pertinent positives and negatives as discussed above, a complete review of systems was performed and all other systems are negative. Vitals Signs Reviewed. General: [nontoxic], [no distress], [appears at stated age], chronically ill- appearing Derm: [warm], [dry] Head: [atraumatic], [normocephalic], [symmetric] Eyes: [EOMI], [no lid lag], [anicteric sclera] Mouth: [no lip lesion], [mucus membranes moist] Cardiovascular: [S1S2 reg], [no murmur] Lungs: [CTA bilateral], [no rhonchi, no rales] , [no accessory muscle use] Abdominal: [soft], [generalized tenderness], [no guarding], [no appreciable organomegaly] Ext: [no gross muscle atrophy], [no edema], [no contractures] Neuro: [ CN II-XI grossly intact], [no focal neuro deficits] Psych: [Alert], [oriented], [appropriate affect] Assessment and Plan: SIRS versus sepsis, leukocytosis and tachycardia on admission likely secondary to colitis Leukocytosis, resolved, now leukopenic - UA with pyuria but no symptoms of UTI - Urine cultures growing skin and genitourinary heladio 10-50k, no identified organism -CXR concerning for right middle lobe infiltrate (also the location for malignancy). Repeat chest x-ray ordered on 12/02, showed similar right basilar opacity related to no pulmonary mass and no new focal consolidation Vancomycin discontinued, continue Cefepime 2g IV BID, now on Flagyl 500 mg p.o. 3 times daily as well for colitis coverage -Monitor CBC daily, white blood cell count improving 1.08 today -ID conuslted.,notes reviewed Generalized abdominal pain secondary to colitis Multiple small hypodense nodules throughout the liver concerning for metastasis -Continue [place] 10 3 times daily as needed -Continue IV fluids -Covered with cefepime 2 g every 12 hours, started on Flagyl 500 mg p.o. 3 times daily SOT/24 -ID and hematology oncology following Migraine headaches -Patient takes extra strength Excedrin at home, ordered Excedrin 250/250/65 2 each p.o. every 4 hours as needed Hypokalemia Hypomagnesemia -Magnesium 4 g, potassium 40 mEq IV, repeat electrolytes PM and in the morning -started on daily oral KCl 40 meQ and MagOx 400 Hypochloremic hyponatremia Metabolic alkalosis Prerenal azotemia All secondary to dehydration - Continue LR at 130 cc/h, sodium stable 131 - Monitor BMP daily Normocytic anemia Acute drop likely diluti acute call patient, letter forms for sure if this is onal. No signs of active bleeding. Monitor Hg. Transaminitis Improved. Likely due to dehydration and liver mts. IV hydration as above. Abdomen is benign. Consider Liver/GB imaging if labs dont improve. Acute moderate protein calorie malnutrition -RD following, patient encouraged to increase oral intake, Magic cup twice daily Lung malignancy, concern for disease progression: Oncology consult. History of AFib: Not on any blood thinners or rate control/ anti-arrhythmics. Resolved: Lactic acidosis, Hyperbilirubinemia I have reviewed the following aws consultant notes: ID, oncology I have reviewed the results of the following tests: CBC and BMP I have ordered the following tests: CBC, BMP, magnesium daily, discharge should this I have discussed the care of this patient with the following independent historian: Patient , RN I have independently interpreted the following test below I have discussed the management of this patient with the following physician: DVT ppx: Lovenox Code status: Full code Anticipated discharge place: TBD, PT OT -recommends home vs HHC Anticipated discharge time: TBD Objective - Vital Signs Vital signs: Vital Signs Temp 98.3 F 12/04/24 04:00 Pulse 100 12/04/24 04:00 Resp 18 12/04/24 04:00 BP 143/82 12/04/24 04:00 Pulse Ox 95 12/04/24 04:00 FiO2 Intake & Output 12/03/24 12/04/24 12/04/24 18:59 06:59 18:59 Intake Total 240 240 Balance 240 240 Weight 53.1 kg Intake: Oral 240 240 Other: Voiding Method Toilet Toilet # Voids 1 1 - Labs CBC & Chem 7: 12/04/24 05:49 12/04/24 05:46 Labs: Abnormal Lab Results - Last 24 Hours (Table) 12/04/24 12/04/24 Range/Units 05:46 05:49 WBC 1.08 L* (4.50-10.00) 10*3/uL RBC 2.90 L (4.10-5.20) 10*6/uL Hgb 8.7 L (12.0-15.0) g/dL Hct 26.5 L (37.2-46.3) % Immature Gran # 0.08 H (0.00-0.04) 10*3/uL Sodium 130 L (137-145) mmol/L Potassium 3.1 L (3.5-5.1) mmol/L Chloride 89 L (98-107) mmol/L Carbon Dioxide 38 H (22-30) mmol/L Magnesium 1.4 L (1.6-2.3) mg/dL Total Protein 4.7 L (6.3-8.2) g/dL Albumin 2.7 L (3.5-5.0) g/dL
[2024-12-04] MEDS: ASPIRIN-ACET-CAFF 250-250-65MG 1 EACH TAB PO PRN (11:45)
[2024-12-04 13:11] LABS: Neutrophils % (M) 22 %
[2024-12-04 13:12] LABS: Band Neutrophils % 3 %; Eosinophils # (M) 0.03 k/uL (0-0.7); Lymphocytes # (M) 0.63 k/uL (1.0-4.8); Monocytes # (M) 0.15 k/uL (0-1.0); Neutrophils # (M) 0.27 k/uL (1.3-7.7); Nucleated Red Blood Cells 0 /100 WBC (0-0); Total Cells Counted 100
[2024-12-04 13:13] LABS: RBC Morphology Normal
[2024-12-04 13:14] LABS: Platelet Count 47 10*3/uL (140-440)
[2024-12-04 13:29] VITALS: BMI 21.4
--- NOTE | 2024-12-04 14:54 | P.PN ---
Subjective Progress Note Date: 12/04/24 Principal diagnosis: Reason for follow-up is leukopenia/colitis Patient is a 74-year-old female with a past medical history difficult for reflux hypertension pneumonia atrial fibrillation history of large cell lung cancer for the patient has been on chemotherapy with the last chemotherapy on 11/24/2024 presenting to the hospital for evaluation of generalized weakness patient has been treated with broad-spectrum antibiotics infectious disease consulted for sepsis. On today's evaluation that is 12/04/2024,the patient remains to be afebrile, patient is on room air not requiring supplemental oxygen and denies any shortness of breath no chest pain or cough.Patient denies having any nausea or vomiting, mild abdominal pain but no diarrhea. Patient white count is 1.08, creatinine 0.74 blood cultures pending Objective - Vital Signs Vital signs: Vital Signs Temp 98.3 F 12/04/24 04:00 Pulse 100 12/04/24 04:00 Resp 18 12/04/24 04:00 BP 143/82 12/04/24 04:00 Pulse Ox 95 12/04/24 04:00 FiO2 Intake & Output 12/03/24 12/04/24 12/04/24 18:59 06:59 18:59 Intake Total 240 240 Balance 240 240 Weight 53.1 kg Intake: Oral 240 240 Other: Voiding Method Toilet Toilet # Voids 1 1 - Exam GENERAL DESCRIPTION: An elderly female lying in bed in no distress RESPIRATORY SYSTEM: Unlabored breathing , decreased breath sounds at bases HEART: S1 S2 regular rate and rhythm , ABDOMEN: Soft , no tenderness EXTREMITIES: No edema feet - Labs CBC & Chem 7: 12/04/24 05:49 12/04/24 05:46 Labs: Abnormal Lab Results - Last 24 Hours (Table) 12/03/24 12/03/24 12/04/24 Range/Units 06:40 06:40 05:46 WBC (4.50-10.00) 10*3/uL RBC (4.10-5.20) 10*6/uL Hgb (12.0-15.0) g/dL Hct (37.2-46.3) % Plt Count 98 L (140-440) 10*3/uL Immature Gran # (0.00-0.04) 10*3/uL Sodium 130 L (137-145) mmol/L Potassium 3.1 L (3.5-5.1) mmol/L Chloride 89 L (98-107) mmol/L Carbon Dioxide 38 H (22-30) mmol/L Magnesium 1.4 L (1.6-2.3) mg/dL Total Protein 4.7 L (6.3-8.2) g/dL Albumin 2.7 L (3.5-5.0) g/dL Procalcitonin 0.86 H (0.02-0.50) ng/mL 12/04/24 Range/Units 05:49 WBC 1.08 L* (4.50-10.00) 10*3/uL RBC 2.90 L (4.10-5.20) 10*6/uL Hgb 8.7 L (12.0-15.0) g/dL Hct 26.5 L (37.2-46.3) % Plt Count (140-440) 10*3/uL Immature Gran # 0.08 H (0.00-0.04) 10*3/uL Sodium (137-145) mmol/L Potassium (3.5-5.1) mmol/L Chloride (98-107) mmol/L Carbon Dioxide (22-30) mmol/L Magnesium (1.6-2.3) mg/dL Total Protein (6.3-8.2) g/dL Albumin (3.5-5.0) g/dL Procalcitonin (0.02-0.50) ng/mL Assessment and Plan (1) SIRS (systemic inflammatory response syndrome) Current Visit: Yes Status: Acute Code(s): R65.10 - SIRS OF NON-INFECTIOUS ORIGIN W/O ACUTE ORGAN DYSFUNCTION SNOMED Code(s): 822634774 (2) Colitis Current Visit: Yes Status: Acute Code(s): K52.9 - NONINFECTIVE GASTROENTERITIS AND COLITIS, UNSPECIFIED SNOMED Code(s): 39450769 Plan: 1patient presented hospital generalized weakness in this patient currently on chemotherapy symptoms started after last chemo with decreased oral intake could have been related to side effects from chemotherapy patient did have some infiltrate on the right middle lobe concerning for pneumonic infiltrate on chest x-ray however she did not have significant cough or sputum production to be suspicious for the same did have positive UA with a culture negative blood culture negative, nasal screen for an MRSA has been negative 2-patient did have mildly elevated procalcitonin, CT abdominal pelvis came back positive concerning for colitis 3-patient is currently being treated with cefepime and Flagyl while inpatient hopefully will transition to oral antibiotics on discharge Dictation was produced using [employer]kt[employer] dictation software. please excuse any grammatical, word or spelling errors. Time with Patient: Less than 30
[2024-12-04] MEDS: POTASSIUM CHLORIDE 10 MEQ in WATER FOR INJECTION 1 100ML.BAG IVPB STA (15:05)
--- NOTE | 2024-12-04 17:25 | P.PN ---
Subjective Progress Note Date: 12/04/24 No acute events overnight. Pt reporting feeling improved today. Nausea significantly improved with addition of ativan. White counts slowly improving, WBC 1.91, ANC 270, hgb 8.7, plt 47,000 Objective - Vital Signs Vital signs: Vital Signs Temp 98.5 F 12/04/24 08:00 Pulse 105 H 12/04/24 08:00 Resp 18 12/04/24 08:00 BP 133/80 12/04/24 08:00 Pulse Ox 96 12/04/24 08:00 FiO2 Intake & Output 12/03/24 12/04/24 12/04/24 18:59 06:59 18:59 Intake Total 240 240 Balance 240 240 Weight 53.1 kg Intake: Oral 240 240 Other: Voiding Method Toilet Toilet Toilet # Voids 1 1 - Constitutional General appearance: Present: no acute distress - EENT Eyes: Present: anicteric sclerae, EOMI ENT: Present: hearing grossly normal - Respiratory Details: breathing is even and unlabored - Cardiovascular Details: skin warm and dry - Gastrointestinal General gastrointestinal: Present: soft. Absent: tenderness - Integumentary Integumentary: Absent: cyanotic, jaundiced - Psychiatric Psychiatric: Present: A&O x's 3 - Labs CBC & Chem 7: 12/04/24 05:49 12/04/24 16:19 Labs: Abnormal Lab Results - Last 24 Hours (Table) 12/04/24 12/04/24 Range/Units 05:46 05:49 WBC 1.08 L* (4.50-10.00) 10*3/uL RBC 2.90 L (4.10-5.20) 10*6/uL Hgb 8.7 L (12.0-15.0) g/dL Hct 26.5 L (37.2-46.3) % Immature Gran # 0.08 H (0.00-0.04) 10*3/uL Sodium 130 L (137-145) mmol/L Potassium 3.1 L (3.5-5.1) mmol/L Chloride 89 L (98-107) mmol/L Carbon Dioxide 38 H (22-30) mmol/L Magnesium 1.4 L (1.6-2.3) mg/dL Total Protein 4.7 L (6.3-8.2) g/dL Albumin 2.7 L (3.5-5.0) g/dL - Imaging and Cardiology CT scan - abdomen: report reviewed CT scan - pelvis: report reviewed Assessment and Plan (1) Dehydration Current Visit: Yes Status: Acute Code(s): E86.0 - DEHYDRATION SNOMED Code(s): 17626067 (2) Hypokalemia Current Visit: Yes Status: Acute Code(s): E87.6 - HYPOKALEMIA SNOMED Code(s): 60090211 (3) Hypomagnesemia Current Visit: Yes Status: Acute Code(s): E83.42 - HYPOMAGNESEMIA SNOMED Code(s): 606255141 (4) Pneumonia Current Visit: Yes Status: Acute Code(s): J18.9 - PNEUMONIA, UNSPECIFIED ORGANISM SNOMED Code(s): 118854617 (5) Sepsis Current Visit: Yes Status: Acute Code(s): A41.9 - SEPSIS, UNSPECIFIED ORGANISM SNOMED Code(s): 37410296 Plan: 1. Sepsis due to pneumonia 2. Lung cancer 3. Leukocytosis due to infection and G-CSF 4. Hyponatremia and severe hypokalemia 5. Dehydration Plan: Ms. Woodard is a very pleasant 74 yo female on carbo/etoposide/keytruda with Dr. 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 Work up with severe hypokalemia, hyponatremia, leukocytosis, and RLL opacity concerning for PNA. - Antibiotics as per ID - Hold chemotherapy until acutely recovered - Antiemetics and hydration - Electrolyte replacement - Monitor CBC. WBC today 0.47. S/p G-CSF on 11/27/24. Would expect increase in WBCs over the next cpl days. No further G-CSF at this time - CT abdomen and pelvis was obtained showing circumferential wall thickening of the distal transverse colon. Development of multiple small hypodense nodules throughout the liver. Right lower lobe irregular pulmonary nodule redemonstrated. Increasing size of right epicardial lymph node. Small right pleural effusion. Patulous appearance of the esophagus with gas and debris. PET CT 09/11/24, did not note liver mets, however patient had further workup with staging and additional biopsy confirming stage 4 disease, and cycle 1 was started on 11/03/24, so liver mets may have developed prior to initiation of treatment, as well as IO treatment can show psuedo-progression on scans early in treatment, and we typically do not repeat treatment response scans till after the 3rd or 4th cycle for this reason. Would not consider this treatment failure. This was discussed with patient and daughter -Ativan started for anticipatory nausea. Soft food diet. Nausea improved with Ativan. Will continue to follow
[2024-12-05 07:09] LABS: HCT 29.6 % (37.2-46.3); HGB 9.6 g/dL (12.0-15.0); MCH 29.9 pg (27.0-32.0); MCHC 32.4 g/dL (32.0-37.0); MCV 92.2 fL (80.0-97.0); RBC 3.21 10*6/uL (4.10-5.20); RDW 14.5 % (11.5-14.5); WBC 4.23 10*3/uL (4.50-10.00)
[2024-12-05 07:16] LABS: Platelet Count 29 10*3/uL (140-440)
[2024-12-05 07:21] LABS: ALT 16 U/L (4-34); AST 27 U/L (14-36); African American GFR (CKD) >90 (>60 ml/min/1.73 sqM); Alkaline Phosphatase 96 U/L (38-126); Anion Gap 5 mmol/L; Blood Urea Nitrogen 12 mg/dL (7-17); Calcium 8.9 mg/dL (8.4-10.2); Carbon Dioxide 35 mmol/L (22-30); Chloride 93 mmol/L (98-107); Glucose 84 mg/dL (74-99); Magnesium 1.2 mg/dL (1.6-2.3); Non-African American GFR(CKD) 85 (>60 ml/min/1.73 sqM); Potassium 3.2 mmol/L (3.5-5.1); Sodium 133 mmol/L (137-145); Total Bilirubin 0.7 mg/dL (0.2-1.3); Total Protein 5.2 g/dL (6.3-8.2)
[2024-12-05] MEDS: MAGNESIUM SULFATE-D5W PMX 1 GM in DEXTROSE/WATER 1 100ML.BAG IVPB SCH (07:47)
[2024-12-05] MEDS: POTASSIUM CHLORIDE 10 MEQ in WATER FOR INJECTION 1 100ML.BAG IVPB SCH (07:48)
[2024-12-05 08:11] LABS: Nucleated Red Blood Cells 0 /100 WBC (0-0); Total Cells Counted 100
[2024-12-05 08:13] LABS: Lymphocytes # (M) 2.54 k/uL (1.0-4.8); Monocytes # (M) 0.47 k/uL (0-1.0); Neutrophils # (M) 1.23 k/uL (1.3-7.7); Neutrophils % (M) 29 %
[2024-12-05 09:06] LABS: Reactive Lymphocytes Present
[2024-12-05] MEDS: MAGNESIUM OXIDE 400 MG TAB PO SCH (09:19)
[2024-12-05] MEDS: POTASSIUM CHLORIDE ER 20 MEQ TAB.ER PO SCH (09:19)
--- NOTE | 2024-12-05 11:54 | P.PN ---
Subjective Progress Note Date: 12/05/24 Hospital Course: 74 year old F with PMH of lung malignancy, AFib not on AC, h/o tobacco abuse p resents to the ED for generalized weakness. She is currently undergoing chemotherapy and radiation, her last session was on Sunday. Patient reports profound weakness that started on associated with chills and hot sweats. She reports 2 episodes on NBNB N/V and 2 episodes of diarrhea that started today. She reports positional lightheadedness. Also reports decreased appetite. These symptoms prompted her to come to the ED. She denies any headache, LE edema, cough, chest pain, shortness of breath, palpitations, changes in urination. She denies numbness or tinging of the extremities. In the ED she underwent extensive evaluation. BP 92/65, HR 100, T 97.6F, RR 18, 92% on RA. CBC, Coag panel, CMP significant for WBC 32.68, Na 133, K 2.3, Cl 92, bicarb 40, BUN 25, glu 115, T. Bili 1.4, AST 53, alk phos 136, total protein 5.9. UA large LE with 40 WBCs. Lactic acid 3.1. COVID, RSV, Flu neg. CXR small right middle lobe infiltrate. Patient was given 2L NS bolus, Vancomycin/Cefepime, Zofr an and admitted for further workup and management. 12/01: Seen and examined at bedside, patient present during exam, she feels weak, has very little appetite, complains of nausea but no vomiting, normal bowel movements. Afebrile. WBC 1.68 this morning, hemoglobin 11.1, sodium 130 stable, potassium 3.0, improved, bicarb 36, improved, creatinine normal. Urine cultures showed skin and urogenital heladio, blood cultures preliminary negative Patient has very minimal oral intake, declined protein shakes as they make her sick, encouraged to increase oral intake 12/02: Abdominal cramping improved, nausea persists but no more vomiting, denies shortness of breath or chest pain. Afebrile, WBC continue to trend down, persistently low sodium and magnesium. Repeat chest x-ray ordered on 12/02 and reviewed independently, showed similar right basilar opacity related to no pulmonary mass and no new focal consolidation. Infectious disease consulted for antibiotic management in the immunocompromised leukopenic patient. Tmax 99.3 on 12/01 12/03: Complains of constant generalized abdominal pain especially across the lower abdomen, improved with pain medications. Has continuous nausea but no vom iting, does not remember when was the last bowel movement. CT abdomen pelvis with contrast ordered. ID following, recommended to discontinue vancomycin and continue with cefepime in the meantime overall feels worse than yesterday. Tmax 99.4 on 12/03 4 a.m., WBC count continues to drop to 0.47, hemoglobin stable at 9.6, sodium stable at 131, persistently low potassium 3.1 and magnesium 1.5, replace per protocol. 12/04: Feels somewhat better today, abdominal pain persists, patient had a regular bowel movement this morning. She was able to finish all her cereal and milk this morning. She mentioned that she has nighttime hot flashes and now complains of migraine headaches, requested Excedrin that she usually takes. She was informed on the results of the CT scan showing colitis and concern for liver metastasis as well as increasing size of the right epicardial lymph node. ID added Flagyl 500 mg p.o. 3 times daily for colitis coverage 12/05: Feels about the same, abdominal pain improved, nausea is persistent but no more vomiting, or diarrhea, had another normal bowel movement this morning. Patient is hopeful to be discharged home, we discussed that she still has significant electrolyte abnormalities and currently is getting treatment for colitis with IV antibiotics, and will probably stay for another couple of days Pertinent positives and negatives as discussed above, a complete review of systems was performed and all other systems are negative. Vitals Signs Reviewed. General: [nontoxic], [no distress], [appears at stated age], chronically ill- appearing Derm: [warm], [dry] Head: [atraumatic], [normocephalic], [symmetric] Eyes: [EOMI], [no lid lag], [anicteric sclera] Mouth: [no lip lesion], [mucus membranes moist] Cardiovascular: [S1S2 reg], [no murmur] Lungs: [CTA bilateral], [no rhonchi, no rales] , [no accessory muscle use] Abdominal: [soft], [generalized tenderness], [no guarding], [no appreciable organomegaly] Ext: [no gross muscle atrophy], [no edema], [no contractures] Neuro: [ CN II-XI grossly intact], [no focal neuro deficits] Psych: [Alert], [oriented], [appropriate affect] Assessment and Plan: SIRS versus sepsis, leukocytosis and tachycardia on admission likely secondary to colitis Leukocytosis, resolved, now leukopenic - UA with pyuria but no symptoms of UTI - Urine cultures growing skin and genitourinary heladio 10-50k, no identified orga nism -CXR concerning for right middle lobe infiltrate (also the location for malignancy). Repeat chest x-ray ordered on 12/02, showed similar right basilar opacity related to no pulmonary mass and no new focal consolidation Vancomycin discontinued, continue Cefepime 2g IV BID, now on Flagyl 500 mg p.o. 3 times daily as well for colitis coverage -Monitor CBC daily, white blood cell count improving 1.08 today -ID conuslted.,notes reviewed Generalized abdominal pain secondary to colitis Multiple small hypodense nodules throughout the liver concerning for metastasis -Continue [place] 10 3 times daily as needed -Continue IV fluids -Covered with cefepime 2 g every 12 hours, started on Flagyl 500 mg p.o. 3 times daily SOT/24 -ID and hematology oncology following Migraine headaches -Patient takes extra strength Excedrin at home, ordered Excedrin 250/250/65 2 each p.o. every 4 hours as needed Hypokalemia Hypomagnesemia -Magnesium 4 g, potassium 40 mEq IV, persistent hypomagnesemia and hypokalemia -started on daily oral KCl 40 meQ and MagOx 400 - Monitor electrolytes daily Hypochloremic hyponatremia Metabolic alkalosis Prerenal azotemia All secondary to dehydration - Continue LR at 130 cc/h, sodium improved to 133 - Monitor BMP daily Normocytic anemia Acute drop likely diluti acute call patient, letter forms for sure if this is onal. No signs of active bleeding. Monitor Hg. Transaminitis Improved. Likely due to dehydration and liver mts. IV hydration as above. Acute moderate protein calorie malnutrition -RD following, patient encouraged to increase oral intake, Magic cup twice daily Lung malignancy, concern for disease progression: Oncology consult. History of AFib: Not on any blood thinners or rate control/ anti-arrhythmics. Resolved: Lactic acidosis, Hyperbilirubinemia I have reviewed the following [employer] consultant notes: ID, oncology I have reviewed the results of the following tests: CBC and BMP I have ordered the following tests: CBC, BMP, magnesium daily I have discussed the care of this patient with the following independent historian: Patient , RN I have independently interpreted the following test below I have discussed the management of this patient with the following physician: DVT ppx: Lovenox Code status: Full code Anticipated discharge place: TBD, PT OT -recommends home vs C Anticipated discharge time: TBD Objective - Vital Signs Vital signs: Vital Signs Temp 98.8 F 12/05/24 08:00 Pulse 110 H 12/05/24 08:00 Resp 20 12/05/24 08:00 BP 130/80 12/05/24 08:00 Pulse Ox 97 12/05/24 08:00 FiO2 Intake & Output 12/04/24 12/05/24 12/05/24 18:59 06:59 18:59 Intake Total 740 1530 480 Balance 740 1530 480 Weight 53.1 kg 54.1 kg Intake: Intake, IV Titration 500 1530 Amount Cefepime 2 gm In Dextrose 100 5% in Water 100 ml @ 25 mls/hr IVPB Q12H [facility] Rx#: [id number] Lactated Ringers 1,000 ml 1430 @ 130 mls/hr IV .Q7H42M [facility] Rx#:[id number] Magnesium Sulfate-D5w Pmx 200 1 gm In Dextrose/Water 1 100ml.bag @ 100 mls/hr IVPB Q1H [facility] Rx#: [id number] Potassium Chloride 10 meq 300 In Water For Injection 1 100ml.bag @ 100 mls/hr IVPB ONCE [facility] Rx#: [id number] Oral 240 480 Other: Voiding Method Toilet Toilet # Voids 1 - Labs CBC & Chem 7: 12/05/24 06:34 12/05/24 06:34 Labs: Abnormal Lab Results - Last 24 Hours (Table) 12/04/24 12/05/24 12/05/24 Range/Units 05:49 06:34 06:34 WBC 4.23 L (4.50-10.00) 10*3/uL RBC 3.21 L (4.10-5.20) 10*6/uL Hgb 9.6 L (12.0-15.0) g/dL Hct 29.6 L (37.2-46.3) % Plt Count 47 L D 29 L (140-440) 10*3/uL Immature Gran # 0.69 H (0.00-0.04) 10*3/uL Neutrophils # (Manual) 0.27 L* 1.23 L (1.3-7.7) k/uL Lymphocytes # (Manual) 0.63 L (1.0-4.8) k/uL Sodium 133 L (137-145) mmol/L Potassium 3.2 L (3.5-5.1) mmol/L Chloride 93 L (98-107) mmol/L Carbon Dioxide 35 H (22-30) mmol/L Magnesium 1.2 L (1.6-2.3) mg/dL Total Protein 5.2 L (6.3-8.2) g/dL Albumin 3.0 L (3.5-5.0) g/dL Microbiology - Last 24 Hours (Table) 11/29/24 13:10 Blood Culture - Final Blood
--- NOTE | 2024-12-05 12:00 | P.PN ---
Subjective Progress Note Date: 12/05/24 No acute events overnight. Pt reporting feeling improved. Nausea improved with addition of ativan. White counts improved. WBC 4.25, ANC , ANC 1.2, hgb 9.6, plt 29,000 Objective - Vital Signs Vital signs: Vital Signs Temp 98.8 F 12/05/24 08:00 Pulse 110 H 12/05/24 08:00 Resp 20 12/05/24 08:00 BP 130/80 12/05/24 08:00 Pulse Ox 97 12/05/24 08:00 FiO2 Intake & Output 12/04/24 12/05/24 12/05/24 18:59 06:59 18:59 Intake Total 740 1530 480 Balance 740 1530 480 Weight 53.1 kg 54.1 kg Intake: Intake, IV Titration 500 1530 Amount Cefepime 2 gm In Dextrose 100 5% in Water 100 ml @ 25 mls/hr IVPB Q12H [facility] Rx#: [id number] Lactated Ringers 1,000 ml 1430 @ 130 mls/hr IV .Q7H42M [facility] Rx#:[id number] Magnesium Sulfate-D5w Pmx 200 1 gm In Dextrose/Water 1 100ml.bag @ 100 mls/hr IVPB Q1H [facility] Rx#: [id number] Potassium Chloride 10 meq 300 In Water For Injection 1 100ml.bag @ 100 mls/hr IVPB [facility]CE [facility] Rx#: [id number] Oral 240 480 Other: Voiding Method Toilet Toilet # Voids 1 - Constitutional General appearance: Present: no acute distress - EENT Eyes: Present: anicteric sclerae, EOMI ENT: Present: hearing grossly normal - Gastrointestinal General gastrointestinal: Present: soft. Absent: tenderness - Integumentary Integumentary: Absent: cyanotic, jaundiced - Psychiatric Psychiatric: Present: A&O x's 3 - Labs CBC & Chem 7: 12/05/24 06:34 12/05/24 06:34 Labs: Abnormal Lab Results - Last 24 Hours (Table) 12/04/24 12/05/24 12/05/24 Range/Units 05:49 06:34 06:34 WBC 4.23 L (4.50-10.00) 10*3/uL RBC 3.21 L (4.10-5.20) 10*6/uL Hgb 9.6 L (12.0-15.0) g/dL Hct 29.6 L (37.2-46.3) % Plt Count 47 L D 29 L (140-440) 10*3/uL Immature Gran # 0.69 H (0.00-0.04) 10*3/uL Neutrophils # (Manual) 0.27 L* 1.23 L (1.3-7.7) k/uL Lymphocytes # (Manual) 0.63 L (1.0-4.8) k/uL Sodium 133 L (137-145) mmol/L Potassium 3.2 L (3.5-5.1) mmol/L Chloride 93 L (98-107) mmol/L Carbon Dioxide 35 H (22-30) mmol/L Magnesium 1.2 L (1.6-2.3) mg/dL Total Protein 5.2 L (6.3-8.2) g/dL Albumin 3.0 L (3.5-5.0) g/dL Microbiology - Last 24 Hours (Table) 11/29/24 13:10 Blood Culture - Final Blood Assessment and Plan (1) Dehydration Current Visit: Yes Status: Acute Code(s): E86.0 - DEHYDRATION SNOMED Code(s): 48743267 (2) Hypokalemia Current Visit: Yes Status: Acute Code(s): E87.6 - HYPOKALEMIA SNOMED Code(s): 75340593 (3) Hypomagnesemia Current Visit: Yes Status: Acute Code(s): E83.42 - HYPOMAGNESEMIA SNOMED Code(s): 197020686 (4) Pneumonia Current Visit: Yes Status: Acute Code(s): J18.9 - PNEUMONIA, UNSPECIFIED ORGANISM SNOMED Code(s): 512293040 (5) Sepsis Current Visit: Yes Status: Acute Code(s): A41.9 - SEPSIS, UNSPECIFIED ORGANISM SNOMED Code(s): 34750695 Plan: 1. Sepsis due to pneumonia 2. Lung cancer 3. Leukocytosis due to infection and G-CSF 4. Hyponatremia and severe hypokalemia 5. Dehydration Plan: Ms. Woodard is a very pleasant 74 yo female on carbo/etoposide/keytruda with Dr. 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 Work up with severe hypokalemia, hyponatremia, leukocytosis, and RLL opacity concerning for PNA. - Antibiotics as per ID - Hold chemotherapy until acutely recovered - Antiemetics and hydration - Electrolyte replacement - Monitor CBC. S/p G-CSF on 11/27/24. Would expect increase in WBCs over the next cpl days. No further G-CSF at this time - White counts improving, WBC 4.25, ANC 1.2, hgb 9.6, plt 29,000 - CT abdomen and pelvis was obtained showing circumferential wall thickening of the distal transverse colon. Development of multiple small hypodense nodules throughout the liver. Right lower lobe irregular pulmonary nodule redemonstrated. Increasing size of right epicardial lymph node. Small right pleural effusion. Patulous appearance of the esophagus with gas and debris. PET CT 09/11/24, did not note liver mets, subsequently patient had further workup with staging and additional biopsy confirming stage 4 disease, and cycle 1 was started on 11/03/24, so liver mets may have developed prior to initiation of treatment, as well as IO treatment can show psuedo-progression on scans early in treatment, and we typically do not repeat treatment response scans till after the 3rd or 4th cycle for this reason. Would not consider this treatment failure. This was discussed with patient and daughter -Ativan started for anticipatory nausea. Soft food diet. Nausea improved with Ativan. Will continue to follow
--- NOTE | 2024-12-05 15:24 | P.PN ---
Subjective Progress Note Date: 12/05/24 Principal diagnosis: Reason for follow-up is leukopenia/colitis Patient is a 74-year-old female with a past medical history difficult for reflux hypertension pneumonia atrial fibrillation history of large cell lung cancer for the patient has been on chemotherapy with the last chemotherapy on 11/24/2024 presenting to the hospital for evaluation of generalized weakness patient has been treated with broad-spectrum antibiotics infectious disease consulted for sepsis. On today's evaluation that is 12/05/2024, the patient continues to be afebrile, the patient is on room air and breathing comfortably, the Pt denies having any chest pain or cough, the patient mention improvement with abdominal pain no nausea or vomiting or diarrhea. Patient white count is 4.23, creatinine is 0.72 blood culture has been negative Objective - Vital Signs Vital signs: Vital Signs Temp 98.8 F 12/05/24 08:00 Pulse 110 H 12/05/24 08:00 Resp 20 12/05/24 08:00 BP 130/80 12/05/24 08:00 Pulse Ox 97 12/05/24 08:00 FiO2 Intake & Output 12/04/24 12/05/24 12/05/24 18:59 06:59 18:59 Intake Total 740 1530 480 Balance 740 1530 480 Weight 53.1 kg 54.1 kg Intake: Intake, IV Titration 500 1530 Amount Cefepime 2 gm In Dextrose 100 5% in Water 100 ml @ 25 mls/hr IVPB Q12H [facility] Rx#: [id number] Lactated Ringers 1,000 ml 1430 @ 130 mls/hr IV .Q7H42M [facility] Rx#:[id number] Magnesium Sulfate-D5w Pmx 200 1 gm In Dextrose/Water 1 100ml.bag @ 100 mls/hr IVPB Q1H [facility] Rx#: [id number] Potassium Chloride 10 meq 300 In Water For Injection 1 100ml.bag @ 100 mls/hr IVPB [facility] Rx#: [id number] Oral 240 480 Other: Voiding Method Toilet Toilet # Voids 1 - Exam GENERAL DESCRIPTION: An elderly female lying in bed in no distress RESPIRATORY SYSTEM: Unlabored breathing , decreased breath sounds at bases HEART: S1 S2 regular rate and rhythm , ABDOMEN: Soft , no tenderness EXTREMITIES: No edema feet - Labs CBC & Chem 7: 12/05/24 06:34 12/05/24 06:34 Labs: Abnormal Lab Results - Last 24 Hours (Table) 12/04/24 12/05/24 12/05/24 Range/Units 05:49 06:34 06:34 WBC 4.23 L (4.50-10.00) 10*3/uL RBC 3.21 L (4.10-5.20) 10*6/uL Hgb 9.6 L (12.0-15.0) g/dL Hct 29.6 L (37.2-46.3) % Plt Count 47 L D 29 L (140-440) 10*3/uL Immature Gran # 0.69 H (0.00-0.04) 10*3/uL Neutrophils # (Manual) 0.27 L* 1.23 L (1.3-7.7) k/uL Lymphocytes # (Manual) 0.63 L (1.0-4.8) k/uL Sodium 133 L (137-145) mmol/L Potassium 3.2 L (3.5-5.1) mmol/L Chloride 93 L (98-107) mmol/L Carbon Dioxide 35 H (22-30) mmol/L Magnesium 1.2 L (1.6-2.3) mg/dL Total Protein 5.2 L (6.3-8.2) g/dL Albumin 3.0 L (3.5-5.0) g/dL Microbiology - Last 24 Hours (Table) 11/29/24 13:10 Blood Culture - Final Blood Assessment and Plan (1) SIRS (systemic inflammatory response syndrome) Current Visit: Yes Status: Acute Code(s): R65.10 - SIRS OF NON-INFECTIOUS ORIGIN W/O ACUTE ORGAN DYSFUNCTION SNOMED Code(s): 192567428 (2) Colitis Current Visit: Yes Status: Acute Code(s): K52.9 - NONINFECTIVE GASTROENTERITIS AND COLITIS, UNSPECIFIED SNOMED Code(s): 33240589 Plan: 1patient presented hospital generalized weakness in this patient currently on chemotherapy symptoms started after last chemo with decreased oral intake could have been related to side effects from chemotherapy patient did have some infiltrate on the right middle lobe concerning for pneumonic infiltrate on chest x-ray however she did not have significant cough or sputum production to be suspicious for the same did have positive UA with a culture negative blood cu lture negative, nasal screen for an MRSA has been negative 2-patient did have mildly elevated procalcitonin, CT abdominal pelvis came back positive concerning for colitis 3-patient is afebrile white count has normalized blood culture has been negative continue with the cefepime and Flagyl while inpatient, question concern answered Dictation was produced using [employer] dictation software. please excuse any grammatical, word or spelling errors. Time with Patient: Less than 30
[2024-12-06] MEDS: traMADol 50 MG TAB PO PRN (00:31)
[2024-12-06 08:32] LABS: HCT 28.5 % (37.2-46.3); HGB 9.2 g/dL (12.0-15.0); MCH 29.8 pg (27.0-32.0); MCHC 32.3 g/dL (32.0-37.0); MCV 92.2 fL (80.0-97.0); Mean Platelet Volume 11.6 fL (9.5-12.2); RBC 3.09 10*6/uL (4.10-5.20); RDW 14.6 % (11.5-14.5)
[2024-12-06 08:59] LABS: ALT 18 U/L (4-34); AST 36 U/L (14-36); African American GFR (CKD) >90 (>60 ml/min/1.73 sqM); Albumin 3.2 g/dL (3.5-5.0); Alkaline Phosphatase 105 U/L (38-126); Anion Gap 7 mmol/L; Blood Urea Nitrogen 12 mg/dL (7-17); Calcium 8.9 mg/dL (8.4-10.2); Carbon Dioxide 34 mmol/L (22-30); Chloride 91 mmol/L (98-107); Glucose 84 mg/dL (74-99); Magnesium 1.5 mg/dL (1.6-2.3); Non-African American GFR(CKD) 82 (>60 ml/min/1.73 sqM); Potassium 3.7 mmol/L (3.5-5.1); Sodium 132 mmol/L (137-145); Total Bilirubin 0.6 mg/dL (0.2-1.3); Total Protein 5.5 g/dL (6.3-8.2)
[2024-12-06] MEDS: PANTOPRAZOLE 40 MG TABLET PO SCH (09:30)
[2024-12-06] MEDS: MAGNESIUM SULFATE-D5W PMX 1 GM in DEXTROSE/WATER 1 100ML.BAG IVPB SCH (09:30)
[2024-12-06 10:45] LABS: Lymphocytes # (M) 6.73 k/uL (1.0-4.8); Monocytes # (M) 1.58 k/uL (0-1.0); Neutrophils # (M) 4.88 k/uL (1.3-7.7); Neutrophils % (M) 37 %; Nucleated Red Blood Cells 0 /100 WBC (0-0); Total Cells Counted 100
[2024-12-06 10:47] LABS: Anisocytosis (M) Present
[2024-12-06 10:48] LABS: RBC Fragments Present
--- NOTE | 2024-12-06 11:23 | P.PN ---
Subjective Progress Note Date: 12/06/24 74 year old F with PMH of lung malignancy, AFib not on AC, h/o tobacco abuse presents to the ED for generalized weakness. She is currently undergoing chemotherapy and radiation, her last session was on Sunday. Patient reports profound weakness that started on associated with chills and hot swe ats. She reports 2 episodes on NBNB N/V and 2 episodes of diarrhea that started today. She reports positional lightheadedness. Also reports decreased appetite. These symptoms prompted her to come to the ED. She denies any headache, LE edema, cough, chest pain, shortness of breath, palpitations, changes in urination. She denies numbness or tinging of the extremities. In the ED she underwent extensive evaluation. BP 92/65, HR 100, T 97.6F, RR 18, 92% on RA. CBC, Coag panel, CMP significant for WBC 32.68, Na 133, K 2.3, Cl 92, bicarb 40, BUN 25, glu 115, T. Bili 1.4, AST 53, alk phos 136, total protein 5.9. UA large LE with 40 WBCs. Lactic acid 3.1. COVID, RSV, Flu neg. CXR small right middle l obe infiltrate. Patient was given 2L NS bolus, Vancomycin/Cefepime, Zofran and admitted for further workup and management. Pro-scarlet 0.86. CT AP obtained concerning for colitis. Vancomycin discontinued and started on Flagyl with ID consulted. 12/06 Patient was seen and examined. Reports nausea but no vomiting. No abdominal pain. Normal bowel movements. CBC and CMP significant for WBC 13.2, RBC 3.09, Hg 9.2, Hct 38.5, Plt 21, Na 132, Cl 91, bicarb 34, alb 3.2. Mag 1.5. General: no distress, appears older than stated age Derm: warm, dry Head: atraumatic, normocephalic, symmetric Mouth: no lip lesion, mucus membranes moist Cardiovascular: S1 S2 tachy. No murmur. Lungs: Clear to auscultation bilaterally, no accessory muscle use Ext: no gross muscle atrophy, no edema, no contractures Neuro: No focal neurologic deficits. Psych: Alert and oriented. Based on my assessment of this patient, this patient meets a high complexity level of care. Sepsis due to colitis: UA large LE with 40 WBC but patient asymptomatic. CXR concerning for right middle lobe infiltrate (also the location for malignancy). CT AP concerning for colitis. Continue Cefepime 2g IV BID (D7) and Flagyl 500 mg PO TID (D4). BCx + UCx + MRSA swal neg. Decreased LR from 130 to 50 cc/hr. Telemetry monitoring. Maintain MAP > 65. Oncology and ID on board. Hypokalemia: Repeat BMP in the AM. HypoCl hypoNa and metabolic alkalosis: Likely due to dehydration. IV hydration as above. Hypomagnesemia: Mag sulfate 2g IV x 1 today. Repeat Mag in the AM. Pancytopenia: In the setting of malignancy, chemotherapy and radiation. Transf use PRBC if Hg < 7. Transfuse Plt if Plt < 10. Hematology on board. Lung malignancy: Oncology on board. History of AFib: Not on any blood thinners or rate control/ anti-arrhythmics. Resolved: Lactic acidosis, Hyperbilirubinemia with transaminitis Electrolytes being replaced. Repeat BMP and Mg in the AM. Hopeful discharge in 1-2 days if e-lytes remain stable. CODE STATUS: FULL CODE. DVT Prophylaxis: Lovenox SQ GI Prophylaxis: Designated medical POA if patient is not able to make medical decisions for themselves: Daughters I have reviewed the following provider contracting consultant notes: Oncology, ID note. I have reviewed the results of the following tests: CBC, CMP, Mag. I have ordered the following tests: CBC, BMP, Mag in the AM. I have discussed the care of this patient with the following independent historian: CONCHITA Crandall. I have independently interpreted the following test below: I have discussed the management of this patient with the following physician: Objective - Vital Signs Vital signs: Vital Signs Temp 98.5 F 12/06/24 03:27 Pulse 102 H 12/06/24 03:27 Resp 18 12/06/24 03:27 BP 105/66 12/06/24 03:27 Pulse Ox 97 12/06/24 03:27 FiO2 Intake & Output 12/05/24 12/06/24 12/06/24 18:59 06:59 18:59 Intake Total 780 Balance 780 Weight 54.2 kg Intake: Intake, IV Titration 300 Amount Cefepime 2 gm In Dextrose 100 5% in Water 100 ml @ 25 mls/hr IVPB Q12H [facility] Rx#: [id number] Magnesium Sulfate-D5w Pmx 100 1 gm In Dextrose/Water 1 100ml.bag @ 100 mls/hr IVPB Q1H [facility] Rx#: [id number] Potassium Chloride 10 meq 100 In Water For Injection 1 100ml.bag @ 100 mls/hr IVPB Q1HR [facility] Rx#: [id number] Oral 480 Other: Voiding Method Toilet # Voids 3 1 - Labs CBC & Chem 7: 12/06/24 06:57 12/06/24 06:57 Labs: Abnormal Lab Results - Last 24 Hours (Table) 12/05/24 Range/Units 06:34 Neutrophils # (Manual) 1.23 L (1.3-7.7) k/uL
[2024-12-06] MEDS: PROCHLORPERAZINE INJ 10 MG/2 ML VIAL IVP PRN (11:46)
--- NOTE | 2024-12-06 14:46 | P.PN ---
Subjective Progress Note Date: 12/06/24 Principal diagnosis: Reason for follow-up is leukopenia/colitis Patient is a 74-year-old female with a past medical history difficult for reflux hypertension pneumonia atrial fibrillation history of large cell lung cancer for the patient has been on chemotherapy with the last chemotherapy on 11/24/2024 presenting to the hospital for evaluation of generalized weakness patient has been treated with broad-spectrum antibiotics infectious disease consulted for sepsis. On today's evaluation that is 12/06/2024, Patient is afebrile patient is currently on room air and denies having any shortness of breath, the patient denies any chest pain or cough, the patient denies any nausea vomiting abdominal pain is currently controlled no diarrhea. Patient white count is 13.20, creatinine 0.74 Objective - Vital Signs Vital signs: Vital Signs Temp 98.3 F 12/06/24 08:00 Pulse 114 H 12/06/24 08:00 Resp 18 12/06/24 08:00 BP 129/70 12/06/24 08:00 Pulse Ox 98 12/06/24 08:00 FiO2 Intake & Output 12/05/24 12/06/24 12/06/24 18:59 06:59 18:59 Intake Total 780 240 Balance 780 240 Weight 54.2 kg Intake: Intake, IV Titration 300 Amount Cefepime 2 gm In Dextrose 100 5% in Water 100 ml @ 25 mls/hr IVPB Q12H RE[facility] Rx#: [id number] Magnesium Sulfate-D5w Pmx 100 1 gm In Dextrose/Water 1 100ml.bag @ 100 mls/hr IVPB Q1H REGGIE Rx#: [id number] Potassium Chloride 10 meq 100 In Water For Injection 1 100ml.bag @ 100 mls/hr IVPB Q1HR REGGIE Rx#: [id number] Oral 480 240 Other: Voiding Method Toilet Toilet # Voids 3 1 - Exam GENERAL DESCRIPTION: An elderly female lying in bed in no distress RESPIRATORY SYSTEM: Unlabored breathing , decreased breath sounds at bases HEART: S1 S2 regular rate and rhythm , ABDOMEN: Soft , no tenderness EXTREMITIES: No edema feet - Labs CBC & Chem 7: 12/06/24 06:57 12/06/24 06:57 Labs: Abnormal Lab Results - Last 24 Hours (Table) 12/06/24 12/06/24 Range/Units 06:57 06:57 WBC 13.20 H (4.50-10.00) 10*3/uL RBC 3.09 L (4.10-5.20) 10*6/uL Hgb 9.2 L (12.0-15.0) g/dL Hct 28.5 L (37.2-46.3) % Plt Count 21 L (140-440) 10*3/uL Immature Gran # 3.34 H (0.00-0.04) 10*3/uL Lymphocytes # (Manual) 6.73 H (1.0-4.8) k/uL Monocytes # (Manual) 1.58 H (0-1.0) k/uL Sodium 132 L (137-145) mmol/L Chloride 91 L (98-107) mmol/L Carbon Dioxide 34 H (22-30) mmol/L Magnesium 1.5 L (1.6-2.3) mg/dL Total Protein 5.5 L (6.3-8.2) g/dL Albumin 3.2 L (3.5-5.0) g/dL Assessment and Plan (1) SIRS (systemic inflammatory response syndrome) Current Visit: Yes Status: Acute Code(s): R65.10 - SIRS OF NON-INFECTIOUS ORIGIN W/O ACUTE ORGAN DYSFUNCTION SNOMED Code(s): 080376477 (2) Colitis Current Visit: Yes Status: Acute Code(s): K52.9 - NONINFECTIVE GASTROENTERITIS AND COLITIS, UNSPECIFIED SNOMED Code(s): 16877375 Plan: 1patient presented hospital generalized weakness in this patient currently on chemotherapy symptoms started after last chemo with decreased oral intake could have been related to side effects from chemotherapy patient did have some infiltrate on the right middle lobe concerning for pneumonic infiltrate on chest x-ray however she did not have significant cough or sputum production to be suspicious for the same did have positive UA with a culture negative blood culture negative, nasal screen for an MRSA has been negative 2-patient did have mildly elevated procalcitonin, CT abdominal pelvis came back positive concerning for colitis 3-patient is afebrile, blood culture has been negative 4patient to continue with the cefepime and Flagyl while inpatient, patient oral Ceftin and Flagyl on discharge Dictation was produced using [id number] dictation software. please excuse any grammatical, word or spelling errors. Time with Patient: Less than 30
[2024-12-06 15:43] LABS: Platelet Count 21 10*3/uL (140-440)
[2024-12-07 07:46] LABS: HCT 22.5 % (37.2-46.3); MCH 30.4 pg (27.0-32.0); MCHC 32.4 g/dL (32.0-37.0); MCV 93.8 fL (80.0-97.0); Mean Platelet Volume 12.6 fL (9.5-12.2); RDW 14.7 % (11.5-14.5); WBC 14.99 10*3/uL (4.50-10.00)
[2024-12-07 08:00] LABS: HGB 7.3 g/dL (12.0-15.0)
[2024-12-07 08:23] LABS: African American GFR (CKD) >90 (>60 ml/min/1.73 sqM); Anion Gap 6 mmol/L; Blood Urea Nitrogen 9 mg/dL (7-17); Calcium 8.4 mg/dL (8.4-10.2); Carbon Dioxide 29 mmol/L (22-30); Chloride 96 mmol/L (98-107); Glucose 71 mg/dL (74-99); Magnesium 1.3 mg/dL (1.6-2.3); Non-African American GFR(CKD) 85 (>60 ml/min/1.73 sqM); Potassium 3.7 mmol/L (3.5-5.1); Sodium 131 mmol/L (137-145)
[2024-12-07 09:06] LABS: Platelet Count 10 10*3/uL (140-440)
[2024-12-07] MEDS: MAGNESIUM SULFATE-D5W PMX 1 GM in DEXTROSE/WATER 1 100ML.BAG IVPB SCH (09:10)
--- NOTE | 2024-12-07 11:18 | P.PN ---
Subjective Progress Note Date: 12/07/24 74 year old F with PMH of lung malignancy, AFib not on AC, h/o tobacco abuse presents to the ED for generalized weakness. She is currently undergoing chemotherapy and radiation, her last session was on Sunday. Patient reports profound weakness that started on associated with chills and hot swe ats. She reports 2 episodes on NBNB N/V and 2 episodes of diarrhea that started today. She reports positional lightheadedness. Also reports decreased appetite. These symptoms prompted her to come to the ED. She denies any headache, LE edema, cough, chest pain, shortness of breath, palpitations, changes in urination. She denies numbness or tinging of the extremities. In the ED she underwent extensive evaluation. BP 92/65, HR 100, T 97.6F, RR 18, 92% on RA. CBC, Coag panel, CMP significant for WBC 32.68, Na 133, K 2.3, Cl 92, bicarb 40, BUN 25, glu 115, T. Bili 1.4, AST 53, alk phos 136, total protein 5.9. UA large LE with 40 WBCs. Lactic acid 3.1. COVID, RSV, Flu neg. CXR small right middle l obe infiltrate. Patient was given 2L NS bolus, Vancomycin/Cefepime, Zofran and admitted for further workup and management. Pro-scarlet 0.86. CT AP obtained concerning for colitis. Vancomycin discontinued and started on Flagyl with ID consulted. 12/06 Patient was seen and examined. Reports nausea but no vomiting. No abdominal pain. Normal bowel movements. CBC and CMP significant for WBC 13.2, RBC 3.09, Hg 9.2, Hct 38.5, Plt 21, Na 132, Cl 91, bicarb 34, alb 3.2. Mag 1.5. 12/07 Patient was seen and examined. Doing well. CBC and CMP significant for WBC 14.99, RBC 2.4, Hg 7.3, Hct 22.5, Plt 10, Na 131, Cl 96, glu 71. Mag 1.3. Plans to order 1 unit Plt and 4g Mag sulfate. General: no distress, appears older than stated age Derm: warm, dry Head: atraumatic, normocephalic, symmetric Mouth: no lip lesion, mucus membranes moist Cardiovascular: S1 S2 tachy. No murmur. Lungs: Clear to auscultation bilaterally, no accessory muscle use Ext: no gross muscle atrophy, no edema, no contractures Neuro: No focal neurologic deficits. Psych: Alert and oriented. Based on my assessment of this patient, this patient meets a high complexity level of care. Sepsis due to colitis: UA large LE with 40 WBC but patient asymptomatic. CXR concerning for right middle lobe infiltrate (also the location for malignancy). CT AP concerning for colitis. Continue Cefepime 2g IV BID (D8) and Flagyl 500 mg PO TID (D5). BCx + UCx + MRSA swal neg. LR 50 cc/hr. Telemetry monitoring. Maintain MAP > 65. Oncology and ID on board. Pancytopenia: In the setting of malignancy, chemotherapy and radiation. Transfuse PRBC if Hg < 7. Transfuse Plt if Plt < 10. Hematology on board. Hypoglycemia: Encourage PO intake. HypoCl hypoNa: Likely due to dehydration. IV hydration as above. Hypomagnesemia: Mag sulfate 4g IV x 1 today. Repeat Mag in the AM. Lung malignancy: Oncology on board. History of AFib: Not on any blood thinners or rate control/ anti-arrhythmics. Resolved: Lactic acidosis, Hyperbilirubinemia with transaminitis, HypoK Electrolytes being replaced. Transfuse 1 unit Plt today. Repeat CBC, BMP and Mg in the AM. Hopeful discharge in 1-2 days if e-lytes, Hg and Plt remain stable. CODE STATUS: FULL CODE. DVT Prophylaxis: Lovenox SQ GI Prophylaxis: Designated medical POA if patient is not able to make medical decisions for themselves: Daughters I have reviewed the following toy consultant notes: ID note. I have reviewed the results of the following tests: CBC, BMP, Mag. I have ordered the following tests: CBC, BMP, Mag in the AM. I have discussed the care of this patient with the following independent his chayo: Family at bedside. I have independently interpreted the following test below: I have discussed the management of this patient with the following physician: Objective - Vital Signs Vital signs: Vital Signs Temp 98.4 F 12/07/24 03:26 Pulse 111 H 12/07/24 03:26 Resp 18 12/07/24 03:26 BP 150/81 12/07/24 03:26 Pulse Ox 95 04/27/25 03:26 FiO2 Intake & Output 12/06/24 12/07/24 12/07/24 18:59 06:59 18:59 Intake Total 780 300 Balance 780 300 Weight 53.8 kg Intake: Oral 780 300 Other: Voiding Method Toilet Toilet # Voids 2 - Labs CBC & Chem 7: 12/07/24 06:52 12/07/24 06:52 Labs: Abnormal Lab Results - Last 24 Hours (Table) 12/06/24 12/06/24 12/07/24 Range/Units 06:57 06:57 06:52 WBC 13.20 H 14.99 H (4.50-10.00) 10*3/uL RBC 3.09 L 2.40 L (4.10-5.20) 10*6/uL Hgb 9.2 L 7.3 L D (12.0-15.0) g/dL Hct 28.5 L 22.5 L (37.2-46.3) % Plt Count 21 L (140-440) 10*3/uL MPV 12.6 H (9.5-12.2) fL Immature Gran # 3.34 H (0.00-0.04) 10*3/uL Lymphocytes # (Manual) 6.73 H (1.0-4.8) k/uL Monocytes # (Manual) 1.58 H (0-1.0) k/uL Sodium 132 L (137-145) mmol/L Chloride 91 L (98-107) mmol/L Carbon Dioxide 34 H (22-30) mmol/L Glucose (74-99) mg/dL Magnesium 1.5 L (1.6-2.3) mg/dL Total Protein 5.5 L (6.3-8.2) g/dL Albumin 3.2 L (3.5-5.0) g/dL 12/07/24 Range/Units 06:52 WBC (4.50-10.00) 10*3/uL RBC (4.10-5.20) 10*6/uL Hgb (12.0-15.0) g/dL Hct (37.2-46.3) % Plt Count (140-440) 10*3/uL MPV (9.5-12.2) fL Immature Gran # (0.00-0.04) 10*3/uL Lymphocytes # (Manual) (1.0-4.8) k/uL Monocytes # (Manual) (0-1.0) k/uL Sodium 131 L (137-145) mmol/L Chloride 96 L (98-107) mmol/L Carbon Dioxide (22-30) mmol/L Glucose 71 L (74-99) mg/dL Magnesium 1.3 L (1.6-2.3) mg/dL Total Protein (6.3-8.2) g/dL Albumin (3.5-5.0) g/dL
[2024-12-08 07:26] LABS: HCT 26.2 % (37.2-46.3); HGB 8.3 g/dL (12.0-15.0); MCH 29.7 pg (27.0-32.0); MCHC 31.7 g/dL (32.0-37.0); MCV 93.9 fL (80.0-97.0); Mean Platelet Volume 11.9 fL (9.5-12.2); RBC 2.79 10*6/uL (4.10-5.20); RDW 14.9 % (11.5-14.5)
[2024-12-08 07:36] LABS: African American GFR (CKD) 82 (>60 ml/min/1.73 sqM); Anion Gap 5 mmol/L; Blood Urea Nitrogen 11 mg/dL (7-17); Carbon Dioxide 35 mmol/L (22-30); Chloride 94 mmol/L (98-107); Glucose 90 mg/dL (74-99); Magnesium 1.5 mg/dL (1.6-2.3); Non-African American GFR(CKD) 71 (>60 ml/min/1.73 sqM); Potassium 3.2 mmol/L (3.5-5.1); Sodium 134 mmol/L (137-145)
[2024-12-08 08:10] LABS: Platelet Count 17 10*3/uL (140-440)
[2024-12-08] MEDS: CEFDINIR 300 MG CAP PO SCH (13:33)
[2024-12-08] MEDS: MAGNESIUM SULFATE-D5W PMX 1 GM in DEXTROSE/WATER 1 100ML.BAG IVPB SCH (13:33)
[2024-12-08] MEDS: POTASSIUM CHLORIDE 10 MEQ in WATER FOR INJECTION 1 100ML.BAG IVPB SCH (13:33)
--- NOTE | 2024-12-08 15:01 | P.PN ---
Subjective Progress Note Date: 12/08/24 74 year old F with PMH of lung malignancy, AFib not on AC, h/o tobacco abuse presents to the ED for generalized weakness. She is currently undergoing chemotherapy and radiation, her last session was on Sunday. Patient reports profound weakness that started on associated with chills and hot swe ats. She reports 2 episodes on NBNB N/V and 2 episodes of diarrhea that started today. She reports positional lightheadedness. Also reports decreased appetite. These symptoms prompted her to come to the ED. She denies any headache, LE edema, cough, chest pain, shortness of breath, palpitations, changes in urination. She denies numbness or tinging of the extremities. In the ED she underwent extensive evaluation. BP 92/65, HR 100, T 97.6F, RR 18, 92% on RA. CBC, Coag panel, CMP significant for WBC 32.68, Na 133, K 2.3, Cl 92, bicarb 40, BUN 25, glu 115, T. Bili 1.4, AST 53, alk phos 136, total protein 5.9. UA large LE with 40 WBCs. Lactic acid 3.1. COVID, RSV, Flu neg. CXR small right middle l obe infiltrate. Patient was given 2L NS bolus, Vancomycin/Cefepime, Zofran and admitted for further workup and management. Pro-scarlet 0.86. CT AP obtained concerning for colitis. Vancomycin discontinued and started on Flagyl with ID consulted. 12/06 Patient was seen and examined. Reports nausea but no vomiting. No abdominal pain. Normal bowel movements. CBC and CMP significant for WBC 13.2, RBC 3.09, Hg 9.2, Hct 38.5, Plt 21, Na 132, Cl 91, bicarb 34, alb 3.2. Mag 1.5. 12/07 Patient was seen and examined. Doing well. CBC and CMP significant for WBC 14.99, RBC 2.4, Hg 7.3, Hct 22.5, Plt 10, Na 131, Cl 96, glu 71. Mag 1.3. Plans to order 1 unit Plt and 4g Mag sulfate. 12/08 Patient was seen and examined. Doing well. CBC and CMP significant for WBC 18.8, RBC 2.79, Hg 8.3, Hct 26.2, Plt 17, Na 134, K 3.2, Cl 94, bicarb 35. Mag 1.5. Plans to order KCl 40 meq PO x 1, 40 meq IV x 1 along with Mag sulfate 4g IV x 1. General: no distress, appears older than stated age Derm: warm, dry Head: atraumatic, normocephalic, symmetric Mouth: no lip lesion, mucus membranes moist Cardiovascular: S1 S2 tachy. No murmur. Lungs: Clear to auscultation bilaterally, no accessory muscle use Ext: no gross muscle atrophy, no edema, no contractures Neuro: No focal neurologic deficits. Psych: Alert and oriented. Based on my assessment of this patient, this patient meets a high complexity level of care. Sepsis due to colitis: UA large LE with 40 WBC but patient asymptomatic. CXR concerning for right middle lobe infiltrate (also the location for malignancy). CT AP concerning for colitis. Continue Cefepime 2g IV BID (D9) and Flagyl 500 mg PO TID (D6). BCx + UCx + MRSA swal neg. LR 50 cc/hr. Telemetry monitoring. Maintain MAP > 65. Oncology and ID on board. Hypomagnesemia: Mag sulfate 4g IV x 1 today. Repeat Mag in the AM. Hypokalemia: KCl 40 meq PO x 1, 40 meq IV x 1. Repeat BMP in the AM. Pancytopenia: In the setting of malignancy, chemotherapy and radiation. Transfuse PRBC if Hg < 7. Transfuse Plt if Plt < 10. Status post 1 unit Plt on 12/07. Hematology on board. Hypoglycemia: Encourage PO intake. HypoCl hypoNa: Likely due to dehydration. IV hydration as above. Lung malignancy: Oncology on board. History of AFib: Not on any blood thinners or rate control/ anti-arrhythmics. Resolved: Lactic acidosis, Hyperbilirubinemia with transaminitis, HypoK Electrolytes being replaced. Repeat CBC, BMP and Mg in the AM. Hopeful discharge in 1-2 days if e-lytes, Hg and Plt remain stable. CODE STATUS: FULL CODE. DVT Prophylaxis: Lovenox SQ GI Prophylaxis: Designated medical POA if patient is not able to make medical decisions for themselves: Daughters I have reviewed the following access consultant notes: I have reviewed the results of the following tests: CBC, BMP, Mag. I have ordered the following tests: CBC, BMP, Mag in the AM. I have discussed the care of this patient with the following independent historian: I have independently interpreted the following test below: I have discussed the management of this patient with the following physician: Objective - Vital Signs Vital signs: Vital Signs Temp 98.9 F 12/08/24 08:00 Pulse 92 12/08/24 12:00 Resp 16 12/08/24 08:00 BP 145/92 12/08/24 12:00 Pulse Ox 100 12/08/24 08:00 FiO2 Intake & Output 12/07/24 12/08/24 12/08/24 18:59 06:59 18:59 Intake Total 1524 240 Balance 1524 240 Weight 53.3 kg 53.3 kg Intake: Oral 1260 240 Blood Product 264 Platelet Pheresis Pas 264 Psoralen Unit [id number] Other: Voiding Method Toilet Toilet Toilet # Voids 2 1 - Labs CBC & Chem 7: 12/08/24 06:24 12/08/24 06:24 Labs: Abnormal Lab Results - Last 24 Hours (Table) 12/08/24 12/08/24 Range/Units 06:24 06:24 WBC 18.80 H (4.50-10.00) 10*3/uL RBC 2.79 L (4.10-5.20) 10*6/uL Hgb 8.3 L (12.0-15.0) g/dL Hct 26.2 L (37.2-46.3) % MCHC 31.7 L (32.0-37.0) g/dL Plt Count 17 L* D (140-440) 10*3/uL Sodium 134 L (137-145) mmol/L Potassium 3.2 L (3.5-5.1) mmol/L Chloride 94 L (98-107) mmol/L Carbon Dioxide 35 H (22-30) mmol/L Magnesium 1.5 L (1.6-2.3) mg/dL
--- NOTE | 2024-12-08 16:01 | P.PN ---
Subjective Progress Note Date: 12/08/24 No acute events overnight. Pt reporting feeling improved. Nausea improved, tolerating diet. WBC 18.6, hgb 8.3, plt 17,000. AC held. Potassium 3.2 ,magnesium 1.5, supplementation ordered Objective - Vital Signs Vital signs: Vital Signs Temp 98.9 F 12/08/24 08:00 Pulse 92 12/08/24 12:00 Resp 16 12/08/24 08:00 BP 145/92 12/08/24 12:00 Pulse Ox 100 12/08/24 08:00 FiO2 Intake & Output 12/07/24 12/08/24 12/08/24 18:59 06:59 18:59 Intake Total 1524 240 Balance 1524 240 Weight 53.3 kg 53.3 kg Intake: Oral 1260 240 Blood Product 264 Platelet Pheresis Pas 264 Psoralen Unit [id number] Other: Voiding Method Toilet Toilet Toilet # Voids 2 1 - Constitutional General appearance: Present: average body habitus, no acute distress - EENT Eyes: Present: anicteric sclerae, EOMI ENT: Present: hearing grossly normal - Respiratory Details: breathing is even and unlabored - Cardiovascular Details: skin warm and dry - Gastrointestinal General gastrointestinal: Present: soft. Absent: tenderness - Integumentary Integumentary: Absent: cyanotic, jaundiced - Psychiatric Psychiatric: Present: A&O x's 3 - Labs CBC & Chem 7: 12/08/24 06:24 12/08/24 06:24 Labs: Abnormal Lab Results - Last 24 Hours (Table) 12/08/24 12/08/24 Range/Units 06:24 06:24 WBC 18.80 H (4.50-10.00) 10*3/uL RBC 2.79 L (4.10-5.20) 10*6/uL Hgb 8.3 L (12.0-15.0) g/dL Hct 26.2 L (37.2-46.3) % MCHC 31.7 L (32.0-37.0) g/dL Plt Count 17 L* D (140-440) 10*3/uL Sodium 134 L (137-145) mmol/L Potassium 3.2 L (3.5-5.1) mmol/L Chloride 94 L (98-107) mmol/L Carbon Dioxide 35 H (22-30) mmol/L Magnesium 1.5 L (1.6-2.3) mg/dL Assessment and Plan (1) Dehydration Current Visit: Yes Status: Acute Code(s): E86.0 - DEHYDRATION SNOMED Code(s): 38706068 (2) Hypokalemia Current Visit: Yes Status: Acute Code(s): E87.6 - HYPOKALEMIA SNOMED Code(s): 16769833 (3) Hypomagnesemia Current Visit: Yes Status: Acute Code(s): E83.42 - HYPOMAGNESEMIA SNOMED Code(s): 277838660 (4) Pneumonia Current Visit: Yes Status: Acute Code(s): J18.9 - PNEUMONIA, UNSPECIFIED ORGANISM SNOMED Code(s): 064415805 (5) Sepsis Current Visit: Yes Status: Acute Code(s): A41.9 - SEPSIS, UNSPECIFIED ORGANISM SNOMED Code(s): 22643325 Plan: 1. Sepsis due to pneumonia 2. Lung cancer 3. Leukocytosis due to infection and G-CSF 4. Hyponatremia and severe hypokalemia 5. Dehydration Plan: Ms. Woodard is a very pleasant 74 yo female on carbo/etoposide/keytruda with Dr. 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 Work up with severe hypokalemia, hyponatremia, leukocytosis, and RLL opacity concerning for PNA. - Antibiotics as per ID - Hold chemotherapy until acutely recovered - Antiemetics and hydration - Electrolyte replacement - Monitor CBC. S/p G-CSF on 11/27/24. Leukopenia now resolved. - WBC 18.8, hgb 8.3, plt 17,000. Hold AC for plts < 50,000. SCDs for DVT prophylaxis - CT abdomen and pelvis was obtained showing circumferential wall thickening of the distal transverse colon. Development of multiple small hypodense nodules throughout the liver. Right lower lobe irregular pulmonary nodule redemonstrated. Increasing size of right epicardial lymph node. Small right pleural effusion. Patulous appearance of the esophagus with gas and debris. PET CT 09/11/24, did not note liver mets, subsequently patient had further workup with staging and additional biopsy confirming stage 4 disease, and cycle 1 was started on 11/03/24, so liver mets may have developed prior to initiation of treatment, as well as IO treatment can show psuedo-progression on scans early in treatment, and we typically do not repeat treatment response scans till after the 3rd or 4th cycle for this reason. Would not consider this treatment failure. This was discussed with patient and daughter -Ativan started for anticipatory nausea. Nausea improved on current regimen, tolerating diet
[2024-12-09 03:21] VITALS: RESP 18; TEMP 98.6
[2024-12-09 07:11] LABS: HCT 27.3 % (37.2-46.3); HGB 8.7 g/dL (12.0-15.0); MCH 29.8 pg (27.0-32.0); MCHC 31.9 g/dL (32.0-37.0); MCV 93.5 fL (80.0-97.0); Mean Platelet Volume 13.1 fL (9.5-12.2); RBC 2.92 10*6/uL (4.10-5.20); WBC 23.99 10*3/uL (4.50-10.00)
[2024-12-09 07:24] LABS: Platelet Count 23 10*3/uL (140-440)
--- NOTE | 2024-12-09 07:44 | P.PN ---
Subjective Progress Note Date: 12/07/24 Principal diagnosis: Reason for follow-up is leukopenia/colitis Patient is a 74-year-old female with a past medical history difficult for reflux hypertension pneumonia atrial fibrillation history of large cell lung cancer for the patient has been on chemotherapy with the last chemotherapy on 11/24/2024 presenting to the hospital for evaluation of generalized weakness patient has been treated with broad-spectrum antibiotics infectious disease consulted for sepsis. On today's evaluation that is 12/07/2024, patient has been afebrile, patient is breathing comfortably and is currently on room air, patient denies having any chest pain and cough, patient denies nausea vomiting or diarrhea and no abdominal pain. Patient white count is 14.99 creatinine 0.72 Objective - Vital Signs Vital signs: Vital Signs Temp 97.9 F 12/07/24 14:20 Pulse 99 12/07/24 14:20 Resp 17 12/07/24 14:20 BP 121/83 12/07/24 14:20 Pulse Ox 99 12/07/24 14:20 FiO2 Intake & Output 12/06/24 12/07/24 12/07/24 18:59 06:59 18:59 Intake Total 307 238 2256 Balance 783 211 9357 Weight 53.8 kg Intake: Oral 999 784 3920 Blood Product 0 Unit 0 Other: Voiding Method Toilet Toilet Toilet # Voids 2 2 - Exam GENERAL DESCRIPTION: An elderly female lying in bed in no distress RESPIRATORY SYSTEM: Unlabored breathing , decreased breath sounds at bases HEART: S1 S2 regular rate and rhythm , ABDOMEN: Soft , no tenderness EXTREMITIES: No edema feet - Labs CBC & Chem 7: 12/09/24 06:38 12/08/24 06:24 Labs: Abnormal Lab Results - Last 24 Hours (Table) 12/06/24 12/07/24 12/07/24 Range/Units 06:57 06:52 06:52 WBC 14.99 H (4.50-10.00) 10*3/uL RBC 2.40 L (4.10-5.20) 10*6/uL Hgb 7.3 L D (12.0-15.0) g/dL Hct 22.5 L (37.2-46.3) % Plt Count 21 L 10 L* D (140-440) 10*3/uL MPV 12.6 H (9.5-12.2) fL Sodium 131 L (137-145) mmol/L Chloride 96 L (98-107) mmol/L Glucose 71 L (74-99) mg/dL Magnesium 1.3 L (1.6-2.3) mg/dL Assessment and Plan (1) SIRS (systemic inflammatory response syndrome) Current Visit: Yes Status: Acute Code(s): R65.10 - SIRS OF NON-INFECTIOUS ORIGIN W/O ACUTE ORGAN DYSFUNCTION SNOMED Code(s): 035793476 (2) Colitis Current Visit: Yes Status: Acute Code(s): K52.9 - NONINFECTIVE GASTROENTERITIS AND COLITIS, UNSPECIFIED SNOMED Code(s): 93469906 (3) Leukocytosis Current Visit: Yes Status: Acute Code(s): D72.829 - ELEVATED WHITE BLOOD CELL COUNT, UNSPECIFIED SNOMED Code(s): 052339127 Plan: 1patient presented hospital generalized weakness in this patient currently on chemotherapy symptoms started after last chemo with decreased oral intake could have been related to side effects from chemotherapy patient did have some infiltrate on the right middle lobe concerning for pneumonic infiltrate on chest x-ray however she did not have significant cough or sputum production to be suspicious for the same did have positive UA with a culture negative blood culture negative, nasal screen for an MRSA has been negative 2-patient did have mildly elevated procalcitonin, CT abdominal pelvis came back positive concerning for colitis 3-patient is afebrile, blood culture has been negative, leukocytosis more likely drug related will monitor closely 4patient to continue with the cefepime and Flagyl while inpatient, and continue supportive care Dictation was produced using [employer] dictation software. please excuse any grammatical, word or spelling errors. Time with Patient: Less than 30
--- NOTE | 2024-12-09 07:45 | P.PN ---
Subjective Progress Note Date: 12/08/24 Principal diagnosis: Reason for follow-up is leukopenia/colitis Patient is a 74-year-old female with a past medical history difficult for reflux hypertension pneumonia atrial fibrillation history of large cell lung cancer for the patient has been on chemotherapy with the last chemotherapy on 11/24/2024 presenting to the hospital for evaluation of generalized weakness patient has been treated with broad-spectrum antibiotics infectious disease consulted for sepsis. On today's evaluation that is 12/08/2024, Patient is afebrile this morning patient denies having any chest pain shortness of breath or cough, the patient is currently on room air, patient denies any abdominal pain no diarrhea no nausea no vomiting. The patient white count is 18.8 creatinine 0.83, blood culture has been negative Objective - Vital Signs Vital signs: Vital Signs Temp 98.2 F 12/08/24 03:06 Pulse 97 12/08/24 03:06 Resp 17 12/08/24 03:06 BP 136/83 12/08/24 03:06 Pulse Ox 98 12/08/24 03:06 FiO2 Intake & Output 12/07/24 12/08/24 12/08/24 18:59 06:59 18:59 Intake Total 1524 240 Balance 1524 240 Weight 53.3 kg Intake: Oral 1260 240 Blood Product 264 Platelet Pheresis Pas 264 Psoralen Unit [id number] Other: Voiding Method Toilet Toilet # Voids 2 1 - Exam GENERAL DESCRIPTION: An elderly female lying in bed in no distress RESPIRATORY SYSTEM: Unlabored breathing , decreased breath sounds at bases HEART: S1 S2 regular rate and rhythm , ABDOMEN: Soft , no tenderness EXTREMITIES: No edema feet - Labs CBC & Chem 7: 12/09/24 06:38 12/08/24 06:24 Labs: Abnormal Lab Results - Last 24 Hours (Table) 12/08/24 12/08/24 Range/Units 06:24 06:24 WBC 18.80 H (4.50-10.00) 10*3/uL RBC 2.79 L (4.10-5.20) 10*6/uL Hgb 8.3 L (12.0-15.0) g/dL Hct 26.2 L (37.2-46.3) % MCHC 31.7 L (32.0-37.0) g/dL Sodium 134 L (137-145) mmol/L Potassium 3.2 L (3.5-5.1) mmol/L Chloride 94 L (98-107) mmol/L Carbon Dioxide 35 H (22-30) mmol/L Magnesium 1.5 L (1.6-2.3) mg/dL Assessment and Plan (1) SIRS (systemic inflammatory response syndrome) Current Visit: Yes Status: Acute Code(s): R65.10 - SIRS OF NON-INFECTIOUS ORIGIN W/O ACUTE ORGAN DYSFUNCTION SNOMED Code(s): 197749955 (2) Colitis Current Visit: Yes Status: Acute Code(s): K52.9 - NONINFECTIVE GASTROENTERITIS AND COLITIS, UNSPECIFIED SNOMED Code(s): 27030330 Plan: 1patient presented hospital generalized weakness in this patient currently on chemotherapy symptoms started after last chemo with decreased oral intake could have been related to side effects from chemotherapy patient did have some infiltrate on the right middle lobe concerning for pneumonic infiltrate on chest x-ray however she did not have significant cough or sputum production to be suspicious for the same did have positive UA with a culture negative blood culture negative, nasal screen for an MRSA has been negative 2-patient did have mildly elevated procalcitonin, CT abdominal pelvis came back positive concerning for colitis 3-patient is afebrile, blood culture has been negative, leukocytosis more likely drug related as no evidence of any worsening condition 4patient has received adequate cefepime switched over to oral Omnicef continue with the Flagyl Dictation was produced using Note dictation software. please excuse any grammatical, word or spelling errors.
[2024-12-09 10:50] LABS: Lymphocytes # (M) 7.44 k/uL (1.0-4.8); Monocytes # (M) 0.96 k/uL (0-1.0); Nucleated Red Blood Cells 0 /100 WBC (0-0); Total Cells Counted 200
[2024-12-09 10:55] LABS: African American GFR (CKD) 89 (>60 ml/min/1.73 sqM); Anion Gap 8 mmol/L; Blood Urea Nitrogen 12 mg/dL (7-17); Calcium 9.2 mg/dL (8.4-10.2); Carbon Dioxide 30 mmol/L (22-30); Chloride 94 mmol/L (98-107); Glucose 102 mg/dL (74-99); Magnesium 1.8 mg/dL (1.6-2.3); Non-African American GFR(CKD) 77 (>60 ml/min/1.73 sqM); Potassium 4.3 mmol/L (3.5-5.1); Sodium 132 mmol/L (137-145)
--- NOTE | 2024-12-09 11:23 | P.DS ---
Providers Date of admission: 11/29/24 13:14 Expected date of discharge: 12/09/24 Attending physician: Lia Sampson MD Consults: 11/29/24 13:14 Consult Physician Routine Consulting Provider: Reno Moser Consult Reason/Comments: lung cancer. chemo patient Do you want consulting provider notified?: Yes 12/02/24 08:22 Consult Physician Routine Consulting Provider: Briseida Castillo Consult Reason/Comments: SIRS vs sepsis in a chemotherapy patient, now leukopenic Do you want consulting provider notified?: Yes Primary care physician: Osmin German Hospital Course: 74 year old F with PMH of lung malignancy, AFib not on AC, h/o tobacco abuse presents to the ED for generalized weakness. She is currently undergoing chemotherapy and radiation, her last session was on Sunday. Patient reports profound weakness that started on associated with chills and hot sweats. She reports 2 episodes on NBNB N/V and 2 episodes of diarrhea that started today. She reports positional lightheadedness. Also reports decreased appetite. These symptoms prompted her to come to the ED. She denies any headache, LE edema, cough, chest pain, shortness of breath, palpitations, change s in urination. She denies numbness or tinging of the extremities. In the ED she underwent extensive evaluation. BP 92/65, HR 100, T 97.6F, RR 18, 92% on RA. CBC, Coag panel, CMP significant for WBC 32.68, Na 133, K 2.3, Cl 92, bicarb 40, BUN 25, glu 115, T. Bili 1.4, AST 53, alk phos 136, total protein 5.9. UA large LE with 40 WBCs. Lactic acid 3.1. COVID, RSV, Flu neg. CXR small right middle lobe infiltrate. Patient was given 2L NS bolus, Vancomycin/Cefepime, Zofran and admitted for further workup and management. Pro-scarlet 0.86. CT AP obtained concerning for colitis. Vancomycin discontinued and started on Flagyl with ID consulted. 12/06 Patient was seen and examined. Reports nausea but no vomiting. No abdominal pain. Normal bowel movements. CBC and CMP significant for WBC 13.2, RBC 3.09, Hg 9.2, Hct 38.5, Plt 21, Na 132, Cl 91, bicarb 34, alb 3.2. Mag 1.5. 12/07 Patient was seen and examined. Doing well. CBC and CMP significant for WBC 14.99, RBC 2.4, Hg 7.3, Hct 22.5, Plt 10, Na 131, Cl 96, glu 71. Mag 1.3. Plans to order 1 unit Plt and 4g Mag sulfate. 12/08 Patient was seen and examined. Doing well. CBC and CMP significant for WBC 18.8, RBC 2.79, Hg 8.3, Hct 26.2, Plt 17, Na 134, K 3.2, Cl 94, bicarb 35. Mag 1.5. Plans to order KCl 40 meq PO x 1, 40 meq IV x 1 along with Mag sulfate 4g IV x 1. 12/09 Patient was seen and examined. Doing well. CBC and CMP significant for WBC 23.99, RBC 2.92, Hg 8.7, Hct 27.3, Na 132, Cl 94, glu 102. Mag 1.8. K 4.3. Discharge Plans: Discussed with Dr. Castillo, continue Cefdinir + Flagyl x 7 days. Prescription for KCl 40 meq PO + Mag ox 400 mg PO QD x 7 days. Follow up with PCP within 1-2 days of discharge. Follow up with Oncology within 1 week of discharge. Discussed with Nick Linton, labs will be repeated with the Oncology clinic on Sunday. General: no distress, appears older than stated age Derm: warm, dry Head: atraumatic, normocephalic, symmetric Mouth: no lip lesion, mucus membranes moist Cardiovascular: good distal perfusion in all 4 extremities Lungs: breathing comfortably, no accessory muscle use Ext: no gross muscle atrophy, no edema, no contractures Neuro: No focal neurologic deficits. Psych: Alert and oriented. Discharge Diagnosis: Sepsis due to colitis Hypomagnesemia Hypokalemia Pancytopenia Hypoglycemia HypoCl hypoNa Lung malignancy History of AFib Resolved: Lactic acidosis, Hyperbilirubinemia with transaminitis This complex discharge took 35 minutes to complete. Patient Condition at Discharge: Stable Plan - Discharge Summary Discharge Rx Participant: No New Discharge Prescriptions: New metroNIDAZOLE [Flagyl] 500 mg PO TID #21 tab Loperamide [Imodium] 2 mg PO Q2HR PRN cap PRN Reason: Loose Stool Cefdinir [Omnicef] 300 mg PO BID #14 cap Acetaminophen Tab [Tylenol] 650 mg PO Q6HR PRN tab PRN Reason: Mild Pain Or Fever > 100.5 Potassium Chloride ER [K-Dur 20] 40 meq PO DAILY #14 tab Magnesium Oxide [Mag-Ox] 400 mg PO DAILY #7 tab Continue HYDROcodone/APAP 10-325MG [[place]is 10-325] 1 tab PO TID PRN 30 Days #90 tab PRN Reason: Pain traMADol HCL 50 mg PO Q6H PRN 30 Days #90 tab PRN Reason: Pain Ondansetron [Zofran] 4 - 8 mg PO Q4H PRN PRN Reason: Nausea Discharge Medication List HYDROcodone/APAP 10-325MG [[place]oomis 10-325] 1 tab PO TID PRN 30 Days #90 tab 11/27/24 [Rx] traMADol HCL 50 mg PO Q6H PRN 30 Days #90 tab 11/27/24 [Rx] Ondansetron [Zofran] 4 - 8 mg PO Q4H PRN 11/29/24 [History] Acetaminophen Tab [Tylenol] 650 mg PO Q6HR PRN tab 12/09/24 [Rx] Cefdinir [Omnicef] 300 mg PO BID #14 cap 12/09/24 [Rx] Loperamide [Imodium] 2 mg PO Q2HR PRN cap 12/09/24 [Rx] Magnesium Oxide [Mag-Ox] 400 mg PO DAILY #7 tab 12/09/24 [Rx] Potassium Chloride ER [K-Dur 20] 40 meq PO DAILY #14 tab 12/09/24 [Rx] metroNIDAZOLE [Flagyl] 500 mg PO TID #21 tab 12/09/24 [Rx] Follow up Appointment(s)/Referral(s): Reno Moser [STAFF PHYSICIAN] - 1 Week Osmin Heller DO [Primary Care Provider] - 1-2 days [facility], [NON-STAFF] - 1 Week Activity/Diet/Wound Care/Special Instructions: Diet: Regular Follow up with PCP within 1-2 days of discharge. Follow up with Oncology within 1 week of discharge. Discharge Disposition: HOME SELF-CARE
[2024-12-09 11:45] LABS: Metamyelocytes % 5 %; Myelocytes # (M) 0.48 k/uL (0); Myelocytes % 2 %; Neutrophils # (M) 14.15 k/uL (1.3-7.7); Neutrophils % (M) 59 %
[2024-12-09 11:47] LABS: Toxic Vacuolation Present
[2024-12-09 14:36] VITALS: BP 123/74; PULSE 107
--- NOTE | 2024-12-09 15:00 | P.PN ---
Subjective Progress Note Date: 12/09/24 Principal diagnosis: Reason for follow-up is leukopenia/colitis Patient is a 74-year-old female with a past medical history difficult for reflux hypertension pneumonia atrial fibrillation history of large cell lung cancer for the patient has been on chemotherapy with the last chemotherapy on 11/24/2024 presenting to the hospital for evaluation of generalized weakness patient has been treated with broad-spectrum antibiotics infectious disease consulted for sepsis. On today's evaluation that is 12/09/2024,the patient denies any fever or any chills, patient is breathing comfortably on room air, the patient denies chest pain shortness of breath and no significant cough, patient abdominal pain is currently controlled denies having any nausea vomiting or diarrhea. Patient did have white count of 23.99 creatinine 0.77 Objective - Vital Signs Vital signs: Vital Signs Temp 98.6 F 12/09/24 08:00 Pulse 110 H 12/09/24 08:00 Resp 18 12/09/24 08:00 BP 125/79 12/09/24 08:00 Pulse Ox 98 12/09/24 08:00 FiO2 Intake & Output 12/08/24 12/09/24 12/09/24 18:59 06:59 18:59 Intake Total 440 200 100 Balance 440 200 100 Weight 53.3 kg 54.7 kg Intake: Intake, IV Titration 200 Amount Magnesium Sulfate-D5w Pmx 100 1 gm In Dextrose/Water 1 100ml.bag @ 100 mls/hr IVPB Q1H REGGIE Rx#: [id number] Potassium Chloride 10 meq 100 In Water For Injection 1 100ml.bag @ 100 mls/hr IVPB Q1HR REGGIE Rx#: [id number] Oral 240 200 100 Other: Voiding Method Toilet Toilet Toilet # Voids 2 - Exam GENERAL DESCRIPTION: An elderly female lying in bed in no distress RESPIRATORY SYSTEM: Unlabored breathing , decreased breath sounds at bases HEART: S1 S2 regular rate and rhythm , ABDOMEN: Soft , no tenderness EXTREMITIES: No edema feet - Labs CBC & Chem 7: 12/09/24 06:38 12/09/24 10:22 Labs: Abnormal Lab Results - Last 24 Hours (Table) 12/09/24 12/09/24 Range/Units 06:38 10:22 WBC 23.99 H (4.50-10.00) 10*3/uL RBC 2.92 L (4.10-5.20) 10*6/uL Hgb 8.7 L (12.0-15.0) g/dL Hct 27.3 L (37.2-46.3) % MCHC 31.9 L (32.0-37.0) g/dL Plt Count 23 L (140-440) 10*3/uL MPV 13.1 H (9.5-12.2) fL Immature Gran # 6.73 H (0.00-0.04) 10*3/uL Neutrophils # (Manual) 14.15 H (1.3-7.7) k/uL Lymphocytes # (Manual) 7.44 H (1.0-4.8) k/uL Metamyelocytes # (Man) 1.20 H (0) k/uL Myelocytes # (Manual) 0.48 H (0) k/uL Sodium 132 L (137-145) mmol/L Chloride 94 L (98-107) mmol/L Glucose 102 H (74-99) mg/dL Assessment and Plan (1) SIRS (systemic inflammatory response syndrome) Current Visit: Yes Status: Acute Code(s): R65.10 - SIRS OF NON-INFECTIOUS ORIGIN W/O ACUTE ORGAN DYSFUNCTION SNOMED Code(s): 663514291 (2) Colitis Current Visit: Yes Status: Acute Code(s): K52.9 - NONINFECTIVE GASTROENTERITIS AND COLITIS, UNSPECIFIED SNOMED Code(s): 21448025 Plan: 1patient presented hospital generalized weakness in this patient currently on chemotherapy symptoms started after last chemo with decreased oral intake could have been related to side effects from chemotherapy patient did have some infil trate on the right middle lobe concerning for pneumonic infiltrate on chest x- ray however she did not have significant cough or sputum production to be suspicious for the same did have positive UA with a culture negative blood culture negative, nasal screen for an MRSA has been negative 2-patient did have mildly elevated procalcitonin, CT abdominal pelvis came back positive concerning for colitis 3-patient is afebrile, blood culture has been negative, leukocytosis more likely related to GCSF as no evidence of any worsening condition 4patient will be referred to therapy with a 7-day course of oral Omnicef and Flagyl, discussed with the admitting team Dictation was produced using [employer]ation software. please excuse any grammatical, word or spelling errors.
--- NOTE | 2024-12-09 20:24 | P.PN ---
Subjective Progress Note Date: 12/09/24 No acute events overnight. Pt reporting feeling improved. Nausea resolved, tolerating oral intake. WBC 23.9, hgb 8.7, plt 23,000, denies episodes of acute bleeding. Objective - Vital Signs Vital signs: Vital Signs Temp 98.6 F 12/09/24 08:00 Pulse 110 H 12/09/24 08:00 Resp 18 12/09/24 08:00 BP 125/79 12/09/24 08:00 Pulse Ox 98 12/09/24 08:00 FiO2 Intake & Output 12/08/24 12/09/24 12/09/24 18:59 06:59 18:59 Intake Total 440 200 100 Balance 440 200 100 Weight 53.3 kg 54.7 kg Intake: Intake, IV Titration 200 Amount Magnesium Sulfate-D5w Pmx 100 1 gm In Dextrose/Water 1 100ml.bag @ 100 mls/hr IVPB Q1H REGGIE Rx#: [id number] Potassium Chloride 10 meq 100 In Water For Injection 1 100ml.bag @ 100 mls/hr IVPB Q1HR REGGIE Rx#: [id number] Oral 240 200 100 Other: Voiding Method Toilet Toilet Toilet # Voids 2 - Labs CBC & Chem 7: 12/09/24 06:38 12/09/24 10:22 Labs: Abnormal Lab Results - Last 24 Hours (Table) 12/09/24 12/09/24 Range/Units 06:38 10:22 WBC 23.99 H (4.50-10.00) 10*3/uL RBC 2.92 L (4.10-5.20) 10*6/uL Hgb 8.7 L (12.0-15.0) g/dL Hct 27.3 L (37.2-46.3) % MCHC 31.9 L (32.0-37.0) g/dL Plt Count 23 L (140-440) 10*3/uL MPV 13.1 H (9.5-12.2) fL Immature Gran # 6.73 H (0.00-0.04) 10*3/uL Neutrophils # (Manual) 14.15 H (1.3-7.7) k/uL Lymphocytes # (Manual) 7.44 H (1.0-4.8) k/uL Metamyelocytes # (Man) 1.20 H (0) k/uL Myelocytes # (Manual) 0.48 H (0) k/uL Sodium 132 L (137-145) mmol/L Chloride 94 L (98-107) mmol/L Glucose 102 H (74-99) mg/dL Assessment and Plan (1) Dehydration Status: Acute Code(s): E86.0 - DEHYDRATION SNOMED Code(s): 45285639 (2) Hypokalemia Status: Acute Code(s): E87.6 - HYPOKALEMIA SNOMED Code(s): 31150081 (3) Hypomagnesemia Status: Acute Code(s): E83.42 - HYPOMAGNESEMIA SNOMED Code(s): 870487168 (4) Pneumonia Status: Acute Code(s): J18.9 - PNEUMONIA, UNSPECIFIED ORGANISM SNOMED Code(s): 485604407 (5) Sepsis Status: Acute Code(s): A41.9 - SEPSIS, UNSPECIFIED ORGANISM SNOMED Code(s): 57957558 Plan: 1. Sepsis due to pneumonia 2. Lung cancer 3. Leukocytosis due to infection and G-CSF 4. Hyponatremia and severe hypokalemia 5. Dehydration Plan: Ms. Woodard is a very pleasant 74 yo female on carbo/etoposide/keytruda with Dr. 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 Work up with severe hypokalemia, hyponatremia, leukocytosis, and RLL opacity concerning for PNA. - Antibiotics as per ID - Hold chemotherapy until acutely recovered - Antiemetics and hydration - Electrolyte replacement - Monitor CBC. S/p G-CSF on 11/27/24. Leukopenia now resolved. - WBC 23.9, hgb8.7, plt 23,000. Hold AC for plts < 50,000. SCDs for DVT pr ophylaxis - CT abdomen and pelvis was obtained showing circumferential wall thickening of the distal transverse colon. Development of multiple small hypodense nodules throughout the liver. Right lower lobe irregular pulmonary nodule redemonstrated. Increasing size of right epicardial lymph node. Small right pleural effusion. Patulous appearance of the esophagus with gas and debris. PET CT 09/11/24, did not note liver mets, subsequently patient had further workup with staging and additional biopsy confirming stage 4 disease, and cycle 1 was started on 11/03/24, so liver mets may have developed prior to initiation of treatment, as well as IO treatment can show psuedo-progression on scans early in treatment, and we typically do not repeat treatment response scans till after the 3rd or 4th cycle for this reason. Would not consider this treatment failure. This was discussed with patient and daughter -Ativan started for anticipatory nausea. Nausea now resolved on current regimen, tolerating diet Discussed case with admitting team, pt is cleared for d/c from hem/onc standpoint, once cleared from other consulted specialities and admitting team Will schedule lab encounter later this week. Discussed case with her oncologist, Dr. Moser, will plan for 10% dose reduction for subsequent cycles and aggressive supportive measures
== END 2024-12-09 15:25 | disposition home or self-care (01) | DRG 871 ==
LOC: EC 09:54 → 3SCARD 13:14
PROVIDERS: ADMIT Family Medicine; ATTEND Family Medicine
PROC: 02HV33Z Insertion of Infusion Device into Superior Vena Cava, Percutaneous Approach (ICD-10-PCS; principal; 2024-12-02 14:50)
DX: A41.9 Sepsis, unspecified organism (principal); J18.9 Pneumonia, unspecified organism; E44.0 Moderate protein-calorie malnutrition; D61.818 Other pancytopenia; C7B.8 Other secondary neuroendocrine tumors; E87.4 Mixed disorder of acid-base balance; C7A.8 Other malignant neuroendocrine tumors; E83.51 Hypocalcemia; C50.919 Malignant neoplasm of unspecified site of unspecified female breast; I10 Essential (primary) hypertension; E87.1 Hypo-osmolality and hyponatremia; I48.91 Unspecified atrial fibrillation; E86.0 Dehydration; Z68.22 Body mass index [BMI] 22.0-22.9, adult; E83.42 Hypomagnesemia; E87.6 Hypokalemia; E87.8 Other disorders of electrolyte and fluid balance, not elsewhere classified; R82.81 Pyuria; G43.909 Migraine, unspecified, not intractable, without status migrainosus; K52.9 Noninfective gastroenteritis and colitis, unspecified; H54.7 Unspecified visual loss; Z79.60 Long term (current) use of unspecified immunomodulators and immunosuppressants; Z87.891 Personal history of nicotine dependence; Z11.52 Encounter for screening for COVID-19
CPT/HCPCS: 36410; 36415; 71045; 71046; 74177; 76937; 80048; 80053; 80202; 81001; 83605; 83735; 84100; 84132; 84145; 85025; 85027; 85610; 85730; 86140; 86850; 86900; 86901; 87040; 87070; 87086; 87636; 87651; 93005; 96365; 96366; 96367; 96368; 96375; 96376; 99291

== ENCOUNTER 2024-12-19 12:36 | Day surgery (SDC) | payer MEDICARE ==
[~2024-12-19 12:36] MED LIST changes: -LACTATED RINGERS 1,000 ML IV SCH; +MIDAZOLAM 2 MG/2 ML VIAL IV PRN; +Pre Op ABX Message 1 EACH MISC MISCELLANE ONE
[2024-12-19] MEDS: IV FLUID CONTINUATION 1,000 ML IV ONE (13:18)
[2024-12-19] MEDS: LACTATED RINGERS 1,000 ML IV SCH (13:19)
[2024-12-19] MEDS: ONDANSETRON 4 MG/2 ML VIAL IVP ONE (13:19)
[2024-12-19] MEDS: DEXAMETHASONE SOD PHOSPHATE 4 MG/ML 1 ML VIAL IV ONE (13:20)
[2024-12-19 13:39] LABS: HCT 30.2 % (37.2-46.3); HGB 9.9 g/dL (12.0-15.0); MCH 30.9 pg (27.0-32.0); MCHC 32.8 g/dL (32.0-37.0); MCV 94.4 fL (80.0-97.0); Mean Platelet Volume 9.9 fL (9.5-12.2); RDW 18.1 % (11.5-14.5); WBC 10.53 10*3/uL (4.50-10.00)
[2024-12-19 13:51] LABS: Platelet Count 630 10*3/uL (140-440)
[2024-12-19] MEDS ORDERED: PROPOFOL 10 MG/ML 20 ML VIAL IV ONE (13:53)
[2024-12-19] MEDS ORDERED: MIDAZOLAM 2 MG/2 ML VIAL ONE (13:53)
[2024-12-19] MEDS ORDERED: LIDOCAINE 1% INJ 10MG/ML (20 ML MDV) ONE (13:53)
[2024-12-19] MEDS ORDERED: fentaNYL (PF) 50 MCG/ML 2 ML AMP ONE (13:53)
[2024-12-19] MEDS ORDERED: SUCCINYLCHOLINE CHLORIDE 200 MG/10 ML VIAL IV ONE (13:53)
[2024-12-19] MEDS: ceFAZolin 1,000 MG VIAL IVPB ONE (13:58)
[2024-12-19] MEDS: BUPIVACAINE (PF) 0.25% 30 ML VIAL SQ ONE (14:17)
[2024-12-19 14:55] VITALS: TEMP 97.4
--- NOTE | 2024-12-19 15:02 | P.OP ---
Date of Procedure: 12/19/24 Preoperative Diagnosis: Lung cancer Postoperative Diagnosis: Lung cancer Procedure(s) Performed: Mediport placement with fluoroscopic guidance Anesthesia: MILLER Surgeon: Erika Heath Pathology: none sent Condition: stable Disposition: same day Indications for Procedure: 74-year-old female with history of lung cancer receiving chemotherapy requires intravascular access for further chemotherapy induction. Risks, benefits, alternatives including risks of bleeding, pneumothorax and infection were disc ussed with the patient. All questions answered prior to attending the operating suite. Operative Findings: Appropriate flush and withdrawal from Mediport site Description of Procedure: Patient was brought to the operating suite and placed in supine position on the operating table. Sedation was provided by anesthesia and the patient underwent endotracheal intubation. Patient was then prepped and draped in regular sterile fashion. Local anesthetic was administered and the right subclavian vein was entered on first attempt. Dark nonpulsatile blood was withdrawn. Guidewire was then placed and location was confirmed under fluoroscopic guidance. At this point local anesthetic was administered to create the pocket for the port. Incision was made and dissection was carried to the prepectoralis fascia. Dissection was carried to free up space for the port. At this point a small incision was made at the guidewire insertion site and a tunnel was created between this guidewire site and the pocket and catheter was placed. Dilator sheath was then placed over the guidewire under fluoroscopic guidance and catheter was then placed. Catheter was noted to be in appropriate position and was connected to the port and port was placed in the pocket. Appropriate flush and withdrawal was noted from the port site. The port was then secured to the prepectoralis fascia in 2 separate locations. Fluoroscopic guidance confirmed location with no kinks in the catheter. Heparin lock was placed. The wound was then closed in layers with 3-0 Vicryl and 4-0 Vicryl subcuticular suture. Sterile dressing was applied. The patient was then taken to postanesthesia care unit in stable condition with pending chest x-ray.
[2024-12-19] MEDS: HYDROmorphone 0.5 MG/0.5 ML SYRINGE IVP PRN (15:25)
--- NOTE | 2024-12-19 15:27 | XR ---
EXAMINATION TYPE: XR chest 1V confirm line plcoh DATE OF EXAM: 12/19/2024 CLINICAL INDICATION: Female, 74 years old with history of Mediport Placement, TECHNIQUE: Single frontal upright view of the chest is obtained. COMPARISON: Chest x-ray December 02, 2024 FINDINGS: There is new right subclavian Mediport catheter terminating in SVC. No pneumothorax is seen. Lungs ar e clear bilaterally. Mild cardiomegaly is seen. The osseous structures are intact. IMPRESSION: As above. [facility], , 12/19/2024 3:25 PM
--- NOTE | 2024-12-19 15:29 | FL ---
EXAMINATION TYPE: FL guided central line placemt DATE OF EXAM: 12/19/2024 CLINICAL INDICATION: Female, 74 years old with history of PORTACATH INSERT, TECHNIQUE: Fluoroscopy. COMPARISON: None. FINDINGS: Fluoroscopic guidance was provided during Mediport catheter insertion procedure performed by Dr. Heath. A total of 8.2 seconds of fluoroscopic time was utilized during the procedure and 4 sp ot images was acquired. Intraoperative images show placement of right subclavian Mediport catheter te rminating in SVC. TOTAL DAP = 0.86061 mGym2. IMPRESSION: As Above. [facility], , 12/19/2024 3:26 PM
[2024-12-19 15:44] VITALS: RESP 16
[2024-12-19 16:28] VITALS: BP 152/85; PULSE 102
== END 2024-12-19 16:57 | disposition home or self-care (01) ==
LOC: OR 12:36
PROVIDERS: ATTEND Surgery
DX: C34.90 Malignant neoplasm of unspecified part of unspecified bronchus or lung (principal); I48.91 Unspecified atrial fibrillation; I10 Essential (primary) hypertension; K21.9 Gastro-esophageal reflux disease without esophagitis; Z79.899 Other long term (current) drug therapy
CPT/HCPCS: 85027; 77001; 36561; C1788; J2250; J0330; J1100; J2405; J0690; J2003; J3010; J1642; J2704; J1171; J0665

== ENCOUNTER → 2025-01-15 | Outpatient (CLI) | payer MEDICARE ==
[2025-01-15 13:06] VITALS: BP 116/80; PULSE 90; RESP 19
--- NOTE | 2025-01-19 14:26 | P.PAINPG ---
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 Pt states she experienced % pain relief x 3 wks s/p procedure. Pt states pain level is provoked at 9 /10 in intensity, constant, localized in the R ribs, sharp in character without shooting pain. Pain is provoked by any movement. Pain is alleviated by medications, topical, repositioning and rest . Interventional procedures include R T7-T9 intercostal nerve block x1 (01/04) Meds: See list including Sheridan 10/325mg, Tramadol, Lidoderm REVIEW OF ORGAN SYSTEMS: CONSTITUTIONAL: No fevers or chills. No recent weight loss. NEUROLOGICAL: + numbness and tingling along the distal extremities. No seizure disorders or headaches. MUSCULOSKELETAL: + pain PSYCHIATRIC: Denies current depression or suicidal thoughts. Physical Examinations : Constitutional : Cooperative , not in acute distress . Neurologic : Cranial nerve II to XII intact. No focal neurological deficits. Psychiatric : alert & oriented x 3. Matching mood & appropriate affect. Judgment & insight intact. Musculoskeletal : Cervical Spine Motor strength in the deltoid and biceps: Normal right side. Normal Left side Motor strength biceps and the wrist extensors: Normal right side . Normal left side Motor strength in the triceps muscle: Normal right side. Normal left side Deep tendon reflexes: Normal at the biceps. Normal at Brachioradialis. Normal at triceps Vertebral body tenderness to deep palpation over Cervical facet loading test: positive bilaterally Spurling test: positive bilaterally Neck distraction test: positive bilaterally Yonathan sign: positive bilaterally Lumbar spine Motor strength lower extremities ,thigh and legs 5/5 Right side , 5/5 Left side Deep tendon reflexes : Normal Knee Jerk. Normal Ankle Jerk Vertebral body tenderness over Patiño Test positive Lumbar facet Loading Test: positive Right / positive Left Range of motion of the lumbar spine Flexion 30 degrees, extension 10 degrees Straight Leg Raise test: Left/ Right positive at degrees León test: positive right / positive left. Severe tenderness over the Sacroiliac joint on the Right / Left sides Gaenslen test: positive bilaterally Seated flexion test: positive bilaterally. Sacral spine : Severe tenderness over the Sacroiliac joint: right side / left side Range of motion: Flexion of the lumbar spine <60 degrees Range of motion: Extension of the lumbar spine <20 degrees Gaenslen's Test positive León test: positive right side / left side Thigh Thrust Test Sacral Thrust Test Imaging: CT non contrast chest from 09/12/24 reviewed Assessment/ Plan : R rib pain secondary to R Lung CA Recommendation of medication management. Use, side effects, adverse reactions and safe storage discussed. Opiate/narcotic agreement signed 11/27/24. Tramadol 50mg #90 w RF. All questions answered. I have spent greater than 30 minutes on patient care today. Dr Goldman was available by phone for the evaluation of this patient. The time was used to review the medical records including relevant urine studies and Prescription history (MAPs), review of the available imaging, evaluation and examination of the patient, coordination of care with the medical staff and if applicable referring physicians, as well as creation of the medical record - Pain Location Right Abdomen Pharmacological Interventions: Medication PQRS Narrative: Hx Alcohol Use (MH) No Home Medications: Ambulatory Orders Ondansetron [Zofran] 4 - 8 mg PO Q4H PRN 11/29/24 Acetaminophen Tab [Tylenol] 650 mg PO Q6HR PRN tab 12/09/24 Loperamide [Imodium] 2 mg PO Q2HR PRN cap 12/09/24 Magnesium Oxide [Mag-Ox] 400 mg PO DAILY #7 tab 12/09/24 Potassium Chloride ER [K-Dur 20] 40 meq PO DAILY #14 tab 12/09/24 Prochlorperazine [Compazine] 10 mg PO Q6H PRN #30 tab 12/09/24 Omeprazole Magnesium [PriLOSEC OTC] 20 mg PO DAILY 12/30/24 Cephalexin [Keflex] 500 mg PO TID 7 Days #21 cap 01/05/25 traMADol HCL 50 mg PO Q6H PRN 30 Days #90 tab 01/15/25 Controlled Substance Measures - Controlled Substance Measures Is patient prescribed a controlled substance at discharge?: Yes If prescribed controlled substance>3 days was MAPS reviewed?: Yes
== END ==
LOC: PNWHC3 12:14
PROVIDERS: ATTEND Specialist
DX: C34.91 Malignant neoplasm of unspecified part of right bronchus or lung (principal); R07.81 Pleurodynia
CPT/HCPCS: 99212

== ENCOUNTER 2025-01-20 09:18 | Inpatient (IN) | payer MEDICARE ==
--- NOTE | 2025-01-20 10:38 | ED ---
Weakness HPI - General Chief complaint: Weakness Stated complaint: weakness Time Seen by Provider: 01/20/25 09:29 Source: patient, RN notes reviewed Mode of arrival: wheelchair Limitations: no limitations - History of Present Illness Initial comments: 74-year-old female presents emergency department complaint increasing weakness, generalized not feeling well. Patient states she is her metastatic cancer. Patient states she has cancer behind her right lung, bony metastasis. Patient states that she received infusion last week states that she had this reaction after the second round she states is her fourth round states that she is just very dehydrated, weak, states that she is uncomfortable. Patient denies reports of fevers no increasing shortness of breath she does have some mild abdominal discomfort. - Related Data Home Medications Medication Instructions Recorded Confirmed Ondansetron [Zofran] 4 - 8 mg PO Q4H PRN 11/29/24 01/20/25 Omeprazole Magnesium [PriLOSEC OTC] 20 mg PO DAILY 12/30/24 01/20/25 Potassium Chloride ER [K-Dur 20] 20 meq PO DAILY 01/20/25 01/20/25 Previous Rx's Medication Instructions Recorded Acetaminophen Tab [Tylenol] 650 mg PO Q6HR PRN tab 12/09/24 Loperamide [Imodium] 2 mg PO Q2HR PRN cap 12/09/24 Magnesium Oxide [Mag-Ox] 400 mg PO DAILY #7 tab 12/09/24 Prochlorperazine [Compazine] 10 mg PO Q6H PRN #30 tab 12/09/24 traMADol HCL 50 mg PO Q6H PRN 30 Days #90 tab 01/15/25 Allergies Allergy/AdvReac Type Severity Reaction Status Date / Time No Known Allergies Allergy Verified 01/20/25 11:26 Review of Systems ROS Statement: Those systems with pertinent positive or pertinent negative responses have been documented in the HPI. ROS Other: All systems not noted in ROS Statement are negative. 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, pleural effusion & pericardial effusion May 2024, lung ca diagnosed Aug 2024- 2 rounds of chemo so far, one radiation tx History of Any Multi-Drug Resistant Organisms: None Reported Past Surgical History: Breast Surgery Additional Past Surgical History / Comment(s): left breast lumpectomy x 2 "precancerous", colonoscopy, EGD, bronchoscopy, thoracoscopy Past Anesthesia/Blood Transfusion Reactions: No Reported Reaction, Family History of Problems w/ Anesthesia Additional Past Anesthesia/Blood Transfusion Reaction / Comment(s): daughter has hard time coming out of anesthesia Past Psychological History: Depression Smoking Status: Former smoker Past Alcohol Use History: Rare Past Drug Use History: None Reported - Past Family History Brother(s) Family Medical History: Pulmonary Embolus Mother Family Medical History: Memory Impairment Additional Family Medical History / Comment(s): from Alzheimer's. Father Additional Family Medical History / Comment(s): from unknown cause, possibly his heart. General Exam Limitations: no limitations General appearance: alert, in no apparent distress Head exam: Present: atraumatic, normocephalic, normal inspection Eye exam: Present: normal appearance, PERRL, EOMI. Absent: scleral icterus, conjunctival injection, periorbital swelling ENT exam: Present: normal exam, mucous membranes moist Neck exam: Present: normal inspection, full ROM. Absent: tenderness, meningismus, lymphadenopathy Respiratory exam: Present: normal lung sounds bilaterally. Absent: respiratory distress, wheezes, rales, rhonchi, stridor Cardiovascular Exam: Present: normal rhythm, bradycardia, normal heart sounds. Absent: systolic murmur, diastolic murmur, rubs, gallop, clicks GI/Abdominal exam: Present: soft, normal bowel sounds. Absent: distended, tenderness, guarding, rebound, rigid Neurological exam: Present: alert, oriented X3 Course Vital Signs 01/20/25 01/20/25 09:20 10:56 Temperature 97.2 F L Pulse Rate 50 L 107 H Respiratory 14 20 Rate Blood Pressure 104/73 124/86 O2 Sat by Pulse 91 L Oximetry Medical Decision Making - Medical Decision Making Was pt. sent in by a medical professional or institution (, PA, CURRICULUM SUPERVISOR, urgent care, hospital, or custodial...) When possible be specific @ -No Did you speak to anyone other than the patient for history (EMS, parent, family, police, friend...)? What history was obtained from this source @ -No Did you review nursing and triage notes (agree or disagree)? Why? @ -I reviewed and agree with nursing and triage notes Were old charts reviewed (outside hosp., previous admission, EMS record, old EKG, old radiological studies, urgent care reports/EKG's, custodial records)? Report findings @ -No old charts were reviewed Differential Diagnosis (chest pain, altered mental status, abdominal pain women, abdominal pain men, vaginal bleeding, weakness, fever, dyspnea, syncope, headache, dizziness, GI bleed, back pain, seizure, CVA, palpatations, mental health, musculoskeletal)? @ -Differential Weakness: Hypoglycemia, shock, sepsis, hyponatremia, anemia, infection, SD, ETOH, adverse medicine reaction, overdose, stroke, this is not meant to be an all-inclusive list. EKG interpreted by me (3pts min.). @ -As above X-rays interpreted by me (1pt min.). @ -Chest x-ray shows no acute acute cardiopulmonary process. CT interpreted by me (1pt min.). @ -None done U/S interpreted by me (1pt. min.). @ -None done What testing was considered but not performed or refused? (CT, X-rays, U/S, labs)? Why? @ -None What meds were considered but not given or refused? Why? @ -None Did you discuss the management of the patient with other professionals (professionals i.e. , PA, CURRICULUM SUPERVISOR, lab, RT, psych nurse, social organization professor, parole hearing officer, teacher, bank secrecy act officer, transplant case manager)? Give summary @ -Sound physician for admission Was smoking cessation discussed for >3mins.? @ -No Was critical care preformed (if so, how long)? @ -35 minutes Were there social determinants of health that impacted care today? How? (Homelessness, low income, unemployed, alcoholism, drug addiction, transportation, low edu. Level, literacy, decrease access to med. care, retirement, rehab)? @ -No Was there de-escalation of care discussed even if they declined (Discuss DNR or withdrawal of care, Hospice)? DNR status @ -No What co-morbidities impacted this encounter? (DM, HTN, Smoking, COPD, CAD, Cancer, CVA, ARF, Chemo, Hep., AIDS, mental health diagnosis, sleep apnea, morbid obesity)? @ -Cancer Was patient admitted / discharged? Hospital course, mention meds given and rout e, prescriptions, significant lab abnormalities, going to OR and other pertinent info. @ -Admitted patient presented for increasing weakness, concerns after recent infusion. Patient found to having anemia hemoglobin of 6.9. Patient does have pancytopenia. Patient was given 1 unit of blood. Patient admitted for further evaluation and treatment. Undiagnosed new problem with uncertain prognosis? @ -No Drug Therapy requiring intensive monitoring for toxicity (Heparin, Nitro, Insulin, Cardizem)? @ -No Were any procedures done? @ -No Diagnosis/symptom? @ -Weakness, cancer, anemia Acute, or Chronic, or Acute on Chronic? @ -Acute Uncomplicated (without systemic symptoms) or Complicated (systemic symptoms)? @ -Complicated Side effects of treatment? @ -No Exacerbation, Progression, or Severe Exacerbation? @ -No Poses a threat to life or bodily function? How? (Chest pain, USA, SD, pneumonia, PE, COPD, DKA, ARF, appy, cholecystitis, CVA, Diverticulitis, Homicidal, Suicidal, threat to staff... and all critical care pts) @ -Yes d threat to endorgan failure - Lab Data Result diagrams: 01/20/25 10:39 01/20/25 10:39 Lab Results 01/20/25 01/20/25 01/20/25 Range/Units 10:39 10:39 10:39 WBC 1.93 L (4.50-10.00) 10*3/uL RBC 2.01 L (4.10-5.20) 10*6/uL Hgb 6.9 L* D (12.0-15.0) g/dL Hct 20.4 L (37.2-46.3) % MCV 101.5 H D (80.0-97.0) fL MCH 34.3 H (27.0-32.0) pg MCHC 33.8 (32.0-37.0) g/dL Plt Count 104 L D (140-440) 10*3/uL MPV 10.6 (9.5-12.2) fL Immature Gran % (Auto) 1.0 % Neutrophils % (Manual) 55 % Lymphocytes % (Manual) 38 % Monocytes % (Manual) 5 % Basophils % (Manual) 2 % Immature Gran # 0.02 (0.00-0.04) 10*3/uL Neutrophils # (Manual) 1.06 L (1.3-7.7) k/uL Lymphocytes # (Manual) 0.73 L (1.0-4.8) k/uL Monocytes # (Manual) 0.10 (0-1.0) k/uL Basophils # (Manual) 0.04 (0-0.2) k/uL Nucleated RBCs 0 (0-0) /100 WBC Manual Slide Review Performed PT 10.7 (10.0-12.5) sec INR 1.0 (<1.2) APTT 22.5 (22.0-30.0) sec Sodium 135 L (137-145) mmol/L Potassium 3.6 (3.5-5.1) mmol/L Chloride 98 (98-107) mmol/L Carbon Dioxide 29 (22-30) mmol/L Anion Gap 8 mmol/L BUN 21 H (7-17) mg/dL Creatinine 0.68 (0.52-1.04) mg/dL Est GFR (CKD-EPI)AfAm >90 (>60 ml/min/1.73 sqM) Est GFR (CKD-EPI)NonAf 88 (>60 ml/min/1.73 sqM) Glucose 105 H (74-99) mg/dL Plasma Lactic Acid Ezekiel (0.7-2.0) mmol/L Calcium 8.9 (8.4-10.2) mg/dL Magnesium 1.7 (1.6-2.3) mg/dL Total Bilirubin 1.2 (0.2-1.3) mg/dL AST 28 (14-36) U/L ALT 22 (4-34) U/L Alkaline Phosphatase 168 H (38-126) U/L Troponin I (0.000-0.034) ng/mL Total Protein 5.9 L (6.3-8.2) g/dL Albumin 3.5 (3.5-5.0) g/dL Urine Color Urine Appearance (Clear) Urine pH (5.0-8.0) Ur Specific [place] (1.001-1.035) Urine Protein (Negative) Urine Glucose (UA) (Negative) Urine Ketones (Negative) Urine Blood (Negative) Urine Nitrite (Negative) Urine Bilirubin (Negative) Urine Urobilinogen (<2.0) mg/dL Ur Leukocyte Esterase (Negative) Urine RBC (0-5) /hpf Urine WBC (0-5) /hpf Ur Squamous Epith Cells (0-4) /hpf Hyaline Casts (0-2) /lpf Urine Mucus (None) /hpf 01/20/25 01/20/25 01/20/25 Range/Units 10:39 10:39 10:57 WBC (4.50-10.00) 10*3/uL RBC (4.10-5.20) 10*6/uL Hgb (12.0-15.0) g/dL Hct (37.2-46.3) % MCV (80.0-97.0) fL MCH (27.0-32.0) pg MCHC (32.0-37.0) g/dL Plt Count (140-440) 10*3/uL MPV (9.5-12.2) fL Immature Gran % (Auto) % Neutrophils % (Manual) % Lymphocytes % (Manual) % Monocytes % (Manual) % Basophils % (Manual) % Immature Gran # (0.00-0.04) 10*3/uL Neutrophils # (Manual) (1.3-7.7) k/uL Lymphocytes # (Manual) (1.0-4.8) k/uL Monocytes # (Manual) (0-1.0) k/uL Basophils # (Manual) (0-0.2) k/uL Nucleated RBCs (0-0) /100 WBC Manual Slide Review PT (10.0-12.5) sec INR (<1.2) APTT (22.0-30.0) sec Sodium (137-145) mmol/L Potassium (3.5-5.1) mmol/L Chloride (98-107) mmol/L Carbon Dioxide (22-30) mmol/L Anion Gap mmol/L BUN (7-17) mg/dL Creatinine (0.52-1.04) mg/dL Est GFR (CKD-EPI)AfAm (>60 ml/min/1.73 sqM) Est GFR (CKD-EPI)NonAf (>60 ml/min/1.73 sqM) Glucose (74-99) mg/dL Plasma Lactic Acid Ezekiel 1.2 (0.7-2.0) mmol/L Calcium (8.4-10.2) mg/dL Magnesium (1.6-2.3) mg/dL Total Bilirubin (0.2-1.3) mg/dL AST (14-36) U/L ALT (4-34) U/L Alkaline Phosphatase (38-126) U/L Troponin I <0.012 (0.000-0.034) ng/mL Total Protein (6.3-8.2) g/dL Albumin (3.5-5.0) g/dL Urine Color Yellow Urine Appearance Clear (Clear) Urine pH 7.5 (5.0-8.0) Ur Specific [place] 1.012 (1.001-1.035) Urine Protein Negative (Negative) Urine Glucose (UA) Negative (Negative) Urine Ketones Negative (Negative) Urine Blood Negative (Negative) Urine Nitrite Negative (Negative) Urine Bilirubin Negative (Negative) Urine Urobilinogen <2.0 (<2.0) mg/dL Ur Leukocyte Esterase Small H (Negative) Urine RBC 1 (0-5) /hpf Urine WBC 6 H (0-5) /hpf Ur Squamous Epith Cells 1 (0-4) /hpf Hyaline Casts 11 H (0-2) /lpf Urine Mucus Rare H (None) /hpf - EKG Data -: EKG Interpreted by Me EKG Comments: EKG performed at 10: 14 sinus tachycardia rate of 106 AR 147 QRS 85 QT/QTc 345/407 Critical Care Time Critical Care Time: Yes Total Critical Care Time: 35 Disposition Clinical Impression: Anemia, Weakness, Large cell carcinoma Disposition: ADMITTED IP TO THIS [facility] Condition: Poor Referrals: Osmin Heller DO [Primary Care Provider] - 1-2 days Time of Disposition: 12:50
[2025-01-20] MEDS: SODIUM CHLORIDE 0.9% 1,000 ML IV ONE (10:54)
[2025-01-20 11:00] LABS: HCT 20.4 % (37.2-46.3); MCH 34.3 pg (27.0-32.0); MCHC 33.8 g/dL (32.0-37.0); MCV 101.5 fL (80.0-97.0); Mean Platelet Volume 10.6 fL (9.5-12.2); Platelet Count 104 10*3/uL (140-440); RBC 2.01 10*6/uL (4.10-5.20); RDW 17.1 % (11.5-14.5); WBC 1.93 10*3/uL (4.50-10.00)
[2025-01-20 11:15] LABS: Partial Thromboplastin Time 22.5 sec (22.0-30.0); Prothrombin Time 10.7 sec (10.0-12.5)
[2025-01-20 11:23] LABS: ALT 22 U/L (4-34); AST 28 U/L (14-36); African American GFR (CKD) >90 (>60 ml/min/1.73 sqM); Albumin 3.5 g/dL (3.5-5.0); Alkaline Phosphatase 168 U/L (38-126); Anion Gap 8 mmol/L; Blood Urea Nitrogen 21 mg/dL (7-17); Calcium 8.9 mg/dL (8.4-10.2); Carbon Dioxide 29 mmol/L (22-30); Chloride 98 mmol/L (98-107); Glucose 105 mg/dL (74-99); Magnesium 1.7 mg/dL (1.6-2.3); Non-African American GFR(CKD) 88 (>60 ml/min/1.73 sqM); Potassium 3.6 mmol/L (3.5-5.1); Sodium 135 mmol/L (137-145); Total Bilirubin 1.2 mg/dL (0.2-1.3); Total Protein 5.9 g/dL (6.3-8.2)
[2025-01-20 11:26] LABS: Appearance,Urine Clear (Clear); Bilirubin,Urine Negative (Negative); Blood,Urine Negative (Negative); Color,Urine Yellow; Glucose,Urine (UA) Negative (Negative); Hyaline Casts,Urine 11 /lpf (0-2); Ketones,Urine Negative (Negative); Leukocyte Esterase,Urine Small (Negative); Mucus,Urine Rare /hpf; Nitrite,Urine Negative (Negative); PH, Urine 7.5 (5.0-8.0); Protein,Urine Negative (Negative); RBC,Urine 1 /hpf (0-5); Specific Gravity,Urine 1.012 (1.001-1.035); Squamous Epithelial Cell,Urine 1 /hpf (0-4); Urobilinogen,Urine <2.0 mg/dL (<2.0); WBC,Urine 6 /hpf (0-5)
[2025-01-20 11:29] LABS: HGB 6.9 g/dL (12.0-15.0)
--- NOTE | 2025-01-20 11:40 | XR ---
EXAMINATION TYPE: XR chest 2V DATE OF EXAM: 01/20/2025 11:28 AM COMPARISON: 01/01/2025 CLINICAL INDICATION: Female, 74 years old with history of Weakness, TECHNIQUE: XR chest 2V view(s) obtained. FINDINGS: The heart size is normal. The pulmonary vasculature is normal. Lung qiu are clear. Port is present on the right tip in the superior vena cava region. IMPRESSION: 1. No acute pulmonary process. [facility], , 01/20/2025 11:38 AM
[2025-01-20 12:19] LABS: Basophils # (M) 0.04 k/uL (0-0.2); Lymphocytes # (M) 0.73 k/uL (1.0-4.8); Neutrophils # (M) 1.06 k/uL (1.3-7.7); Neutrophils % (M) 55 %; Nucleated Red Blood Cells 0 /100 WBC (0-0); Total Cells Counted 100
[2025-01-20] MEDS ORDERED: NALOXONE 0.4 MG/ML 1 ML VIAL IV PRN (12:50)
--- NOTE | 2025-01-20 14:33 | P.HPIM ---
History of Present Illness H&P Date: 01/20/25 Chief Complaint: Weakness Patient is a 74 year old female with Atrial fibrillation not on anticoagulation, GERD, Neuroendocrine tumor of right lung currently on chemotherapy with carboplatin/etoposide/keytruda presented to the ED with generalized weakness. Patient reports increasing weakness that started on Sunday. She mentions receiving infusion last week on 01/14/25, currently she is on the fourth round. She reports having a similar reaction after the second round and was admitted here. Her next treatment is on February 02. PET scan done in August 2024 showed new areas of uptake within posterior right lung, subcarinal, right hilar lymph nodes suspicious for metastatic disease and some subtle intermediate signal is within the anterolateral right pleural margin at the lung base which could be within the cortex, or she has a pleural metastasis would be within the d ifferential. She is supposed to have a PET scan after the treatments to look for response to treatment. Associated with that she also has mild lower abdominal discomfort. Denies having any UTI symptoms. She also experiences nausea and shortness of breath while moving. She is a former smoker. Denies fever, cough, chest pain, palpitations, abdominal pain, nausea, vomiting, hematuria, dysuria, hematochezia, melena, headache, slurred speech, numbness, tingling, blurred vision, double vision. ED documentation reviewed. In the ED patient was treated with 0.9 normal saline. Vitals on admission T 97.2 F, LA 50 bpm, RR 14, BP 104/73, SpO2 91% on room air Most recent vital LA 113 bpm, SpO2 98% on room air EKG independently interpreted as sinus tachycardia, rate 106 bpm, QTc 407 ms Chest x-ray shows no acute pulmonary process Labs on admission show WBC 1.93, hemoglobin 6.9, MCV 101.5, platelet count 104, sodium 135, creatinine 0.68, potassium 3.6, ALP 168, troponin I <0.012 UA shows small leukocyte esterase, 6 WBC, 11 hyaline casts, rare mucus Review of systems: Pertinent positives and negatives as discussed in HPI, a complete review of systems was performed and all other systems are negative. Physical examination: Vital signs reviewed General: nontoxic, no distress, appears at stated age Derm: warm, dry, intact Head: atraumatic, normocephalic, symmetric Eyes: EOMI, anicteric sclera Mouth: no lip lesion, mucus membranes moist Cardiovascular: S1 S2 reg, no murmur Lungs: CTA bilateral, no rhonchi, no rales, no accessory muscle use Abdominal: soft, non-tender to palpation Extremities: No cyanosis, clubbing, or pedal edema. Neuro: Alert, Oriented, strength 4/5 in all 4 extremities Psych: well appearing, appropriate affect Assessment/Plan: Patient is a 74 year old female with atrial fibrillation, GERD, hypertension, metastatic lung cancer currently on chemotherapy presented to the ED with generalized weakness. Patient admitted to internal medicine service. Active: #. Symptomatic Anemia #. Pancytopenia #. 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 GERD #. Nausea Continue pantoprazole 40 mg PO daily, Compazine 10 mg PO Q6HR PRN #. Atrial fibrillation, not on AC/antiarrythmics/rate control meds #. History of pericardial effusion requiring pericardial window F: None E: Replete as required N: Regular diet A: Ambulatory DVT prophylaxis: Lovenox 40 mg SQ daily GI prophylaxis: Pantoprazole 40 mg PO daily The patient is admitted with an anticipated more than 2 midnight stay for evaluation of weakness CODE STATUS: FULL CODE Discussed with: Patient Anticipated discharge place: Pending clinical course Dictation was produced using [employer] dictation software. please excuse any grammatical, word or spelling errors. Garth Santos MD PGY-1 IM I have seen and evaluated the patient today. Discussed with the resident and agree with the residents finding and plan as documented in the resident's note. Changes highlighted in blue font. 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, pleural effusion & pericardial effusion May 2024, lung ca diagnosed Aug 2024- 2 rounds of chemo so far, one radiation tx History of Any Multi-Drug Resistant Organisms: None Reported Past Surgical History: Breast Surgery Additional Past Surgical History / Comment(s): left breast lumpectomy x 2 "precancerous", colonoscopy, EGD, bronchoscopy, thoracoscopy Past Anesthesia/Blood Transfusion Reactions: No Reported Reaction, Family History of Problems w/ Anesthesia Additional Past Anesthesia/Blood Transfusion Reaction / Comment(s): daughter has hard time coming out of anesthesia Past Psychological History: Depression Smoking Status: Former smoker Past Alcohol Use History: Rare Past Drug Use History: None Reported - Past Family History Brother(s) Family Medical History: Pulmonary Embolus Mother Family Medical History: Memory Impairment Additional Family Medical History / Comment(s): from Alzheimer's. Father Additional Family Medical History / Comment(s): from unknown cause, possibly his heart. Medications and Allergies Home Medications Medication Instructions Recorded Confirmed Type Ondansetron [Zofran] 4 - 8 mg PO Q4H PRN 11/29/24 01/20/25 History Acetaminophen Tab [Tylenol] 650 mg PO Q6HR PRN tab 12/09/24 01/20/25 Rx Loperamide [Imodium] 2 mg PO Q2HR PRN cap 12/09/24 01/20/25 Rx Magnesium Oxide [Mag-Ox] 400 mg PO DAILY #7 tab 12/09/24 01/20/25 Rx Prochlorperazine [Compazine] 10 mg PO Q6H PRN #30 tab 12/09/24 01/20/25 Rx Omeprazole Magnesium [PriLOSEC OTC] 20 mg PO DAILY 12/30/24 01/20/25 History traMADol HCL 50 mg PO Q6H PRN 30 Days #90 tab 01/15/25 01/20/25 Rx Potassium Chloride ER [K-Dur 20] 20 meq PO DAILY 01/20/25 01/20/25 History Allergies Allergy/AdvReac Type Severity Reaction Status Date / Time No Known Allergies Allergy Verified 01/20/25 11:26 Physical Exam Vitals: Vital Signs Temp Pulse Resp BP Pulse Ox 01/20/25 13:00 113 H 18 115/81 98 01/20/25 10:56 107 H 20 124/86 01/20/25 09:20 97.2 F L 50 L 14 104/73 91 L Intake and Output 01/19/25 01/20/25 01/20/25 22:59 06:59 14:59 Other: Weight 49.895 kg Results CBC & Chem 7: 01/20/25 10:39 01/20/25 10:39 Labs: Abnormal Lab Results - Last 24 Hours (Table) 01/20/25 01/20/25 01/20/25 Range/Units 10:39 10:39 10:57 WBC 1.93 L (4.50-10.00) 10*3/uL RBC 2.01 L (4.10-5.20) 10*6/uL Hgb 6.9 L* D (12.0-15.0) g/dL Hct 20.4 L (37.2-46.3) % MCV 101.5 H D (80.0-97.0) fL MCH 34.3 H (27.0-32.0) pg Plt Count 104 L D (140-440) 10*3/uL Neutrophils # (Manual) 1.06 L (1.3-7.7) k/uL Lymphocytes # (Manual) 0.73 L (1.0-4.8) k/uL Sodium 135 L (137-145) mmol/L BUN 21 H (7-17) mg/dL Glucose 105 H (74-99) mg/dL Alkaline Phosphatase 168 H (38-126) U/L Total Protein 5.9 L (6.3-8.2) g/dL Ur Leukocyte Esterase Small H (Negative) Urine WBC 6 H (0-5) /hpf Hyaline Casts 11 H (0-2) /lpf Urine Mucus Rare H (None) /hpf
[2025-01-20] MEDS: PROCHLORPERAZINE 10 MG TAB PO PRN (15:32)
[2025-01-20] MEDS: traMADol 50 MG TAB PO PRN (20:04)
[2025-01-20] MEDS ORDERED: traMADol 50 MG TAB PO PRN (20:05)
[2025-01-21 05:18] LABS: HCT 20.8 % (37.2-46.3); MCH 32.9 pg (27.0-32.0); MCHC 33.2 g/dL (32.0-37.0); Mean Platelet Volume 10.6 fL (9.5-12.2); RDW 18.8 % (11.5-14.5); WBC 2.57 10*3/uL (4.50-10.00)
[2025-01-21 05:28] LABS: HGB 6.9 g/dL (12.0-15.0)
[2025-01-21 05:29] LABS: Platelet Count 72 10*3/uL (140-440)
[2025-01-21 05:30] LABS: African American GFR (CKD) >90 (>60 ml/min/1.73 sqM); Anion Gap 6 mmol/L; Blood Urea Nitrogen 13 mg/dL (7-17); Calcium 8.5 mg/dL (8.4-10.2); Carbon Dioxide 27 mmol/L (22-30); Chloride 99 mmol/L (98-107); Glucose 78 mg/dL (74-99); Non-African American GFR(CKD) >90 (>60 ml/min/1.73 sqM); Potassium 3.5 mmol/L (3.5-5.1); Sodium 132 mmol/L (137-145)
[2025-01-21 06:50] LABS: Band Neutrophils % 5 %; Lymphocytes # (M) 1.64 k/uL (1.0-4.8); Monocytes # (M) 0.13 k/uL (0-1.0); Neutrophils # (M) 0.79 k/uL (1.3-7.7); Neutrophils % (M) 26 %; Nucleated Red Blood Cells 0 /100 WBC (0-0); Total Cells Counted 100
[2025-01-21 08:04] LABS: Reticulocyte % 0.45 % (0.10-1.80)
[2025-01-21] MEDS: PANTOPRAZOLE 40 MG TABLET PO SCH (08:42)
[2025-01-21] MEDS: ACETAMINOPHEN TAB 325 MG TAB PO PRN (08:42)
[2025-01-21] MEDS: ENOXAPARIN 40 MG/0.4 ML SYRINGE SQ SCH (08:43)
[2025-01-21 09:20] LABS: % Iron Saturation 70.69 (12.00-45.00)
--- NOTE | 2025-01-21 10:58 | P.PN ---
Subjective Progress Note Date: 01/21/25 Principal diagnosis: Hospital course: Patient is a 74 year old female with Atrial fibrillation not on anticoagulation, GERD, Neuroendocrine tumor of right lung currently on chemotherapy with carboplatin/etoposide/keytruda presented to the ED with generalized weakness. Patient reports increasing weakness that started on Sunday. She mentions receiving infusion last week on 01/14/25, currently she is on the fourth round. She reports having a similar reaction after the second round and was admitted here. Her next treatment is on February 02. PET scan done in August 2024 showed new areas of uptake within posterior right lung, subcarinal, right hilar lymph nodes suspicious for metastatic disease and some subtle intermediate signal is within the anterolateral right pleural margin at the lung base which could be within the cortex, or she has a pleural metastasis would be within the differential. She is supposed to have a PET scan after the treatments to look for response to treatment. Associated with that she also has mild lower abdominal discomfort. Denies having any UTI symptoms. She also experiences nausea and shortness of breath while moving. She is a former smoker. Denies fever, cough, chest pain, palpitations, abdominal pain, nausea, vomiting, hematuria, dysuria, hematochezia, melena, headache, slurred speech, numbness, tingling, blurred vision, double vision. ED documentation reviewed. In the ED patient was treated with 0.9 normal saline. 01/21/25: Patient is seen and examined at bedside today. Patient reports feeling better today. Review of systems: Pertinent positives and negatives as discussed in HPI, a complete review of systems was performed and all other systems are negative. Vitals: Signs Reviewed, and stable Physical examination: General: nontoxic, no distress, appears at stated age Derm: warm, dry, intact Head: atraumatic, normocephalic, symmetric Eyes: EOMI, anicteric sclera Mouth: no lip lesion, mucus membranes moist Cardiovascular: S1 S2 reg, no murmur Lungs: CTA bilateral, no rhonchi, no rales, no accessory muscle use Abdominal: soft, non-tender to palpation Extremities: No cyanosis, clubbing, or pedal edema. Neuro: Alert, Oriented, strength 4/5 in all 4 extremities Psych: well appearing, appropriate affect Data Reviewed Today: Labs: WBC 2.57, ANC 0.79, platelet count 72,sodium 132 hemoglobin 6.9, MCV 99, RDW 18.8, reticulocyte count 0.45, LDH 202, iron 164, TIBC 232, percent saturation 70.69, transferrin 166, ferritin 1993 Imaging: No new imaging Assessment/Plan: Patient is a 74 year old female with atrial fibrillation, GERD, hypertension, metastatic lung cancer currently on chemotherapy presented to the ED with generalized weakness. Patient admitted to internal medicine service. Active: #. Symptomatic Anemia #. Anemia of chronic disease, due to myeloproliferative disorder #. Pancytopenia #. 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 GERD #. Nausea Continue pantoprazole 40 mg PO daily, Compazine 10 mg PO Q6HR PRN #. Atrial fibrillation, not on AC/antiarrythmics/rate control meds #. History of pericardial effusion requiring pericardial window F: None E: Replete as required N: Regular diet A: Ambulatory DVT prophylaxis: Lovenox 40 mg SQ daily GI prophylaxis: Pantoprazole 40 mg PO daily Code status: Full code Anticipated discharge place: Pending clinical course Anticipated discharge time: Pending clinical course Dictation was produced using [employer] dictation software. please excuse any grammatical, word or spelling errors. Garth Santos MD PGY-1 IM I have seen and evaluated the patient today. Discussed with the resident and agree with the residents finding and plan as documented in the resident's note. Changes highlighted in blue font. Objective - Vital Signs Vital signs: Vital Signs Temp 99.0 F 01/21/25 01:54 Pulse 103 H 01/21/25 01:54 Resp 18 01/21/25 01:54 BP 115/73 01/21/25 01:54 Pulse Ox 98 01/21/25 01:54 FiO2 Intake & Output 01/20/25 01/21/25 01/21/25 18:59 06:59 18:59 Intake Total 310 Balance 310 Weight 49.895 kg Intake: Blood Product 310 Rc As-1 Unit 310 [id number] Other: Voiding Method Toilet # Voids 1 2 - Labs CBC & Chem 7: 01/21/25 05:02 01/21/25 04:28 Labs: Abnormal Lab Results - Last 24 Hours (Table) 01/20/25 01/20/25 01/20/25 Range/Units 10:39 10:39 10:57 WBC 1.93 L (4.50-10.00) 10*3/uL RBC 2.01 L (4.10-5.20) 10*6/uL Hgb 6.9 L* D (12.0-15.0) g/dL Hct 20.4 L (37.2-46.3) % MCV 101.5 H D (80.0-97.0) fL MCH 34.3 H (27.0-32.0) pg RDW (11.5-14.5) % Plt Count 104 L D (140-440) 10*3/uL Neutrophils # (Manual) 1.06 L (1.3-7.7) k/uL Lymphocytes # (Manual) 0.73 L (1.0-4.8) k/uL Sodium 135 L (137-145) mmol/L BUN 21 H (7-17) mg/dL Glucose 105 H (74-99) mg/dL Alkaline Phosphatase 168 H (38-126) U/L Total Protein 5.9 L (6.3-8.2) g/dL Ur Leukocyte Esterase Small H (Negative) Urine WBC 6 H (0-5) /hpf Hyaline Casts 11 H (0-2) /lpf Urine Mucus Rare H (None) /hpf Crossmatch 01/20/25 01/21/25 01/21/25 Range/Units 13:00 04:28 05:02 WBC 2.57 L (4.50-10.00) 10*3/uL RBC 2.10 L (4.10-5.20) 10*6/uL Hgb 6.9 L* (12.0-15.0) g/dL Hct 20.8 L (37.2-46.3) % MCV 99.0 H (80.0-97.0) fL MCH 32.9 H (27.0-32.0) pg RDW 18.8 H (11.5-14.5) % Plt Count 72 L (140-440) 10*3/uL Neutrophils # (Manual) 0.79 L (1.3-7.7) k/uL Lymphocytes # (Manual) (1.0-4.8) k/uL Sodium 132 L (137-145) mmol/L BUN (7-17) mg/dL Glucose (74-99) mg/dL Alkaline Phosphatase (38-126) U/L Total Protein (6.3-8.2) g/dL Ur Leukocyte Esterase (Negative) Urine WBC (0-5) /hpf Hyaline Casts (0-2) /lpf Urine Mucus (None) /hpf Crossmatch See Detail
[2025-01-21 11:33] VITALS: BMI 20.1
--- NOTE | 2025-01-21 22:57 | P.CONS ---
History of Present Illness - Reason for Consult Consult date: 01/21/25 anemia, malignancy Requesting physician: César Penny - Chief Complaint Severe weakness, fatigue - History of Present Illness Ms Woodard is a pleasant female pt of Dr. Moser, initially seen in consult at [facility] 06/03/24, when she presented with low-grade fever, as well as cough, and shortness of breath which were progressive over the past few weeks. She reported night sweats and unintentional weight loss of about 60 pounds over the past 2 years. Noticed improvement in symptoms when on prednisone for vision loss earlier in the year. She had follow-up with Pulmonary medicine for a lung nodule, low-dose lung CT in 03/05 showing a 1.1 cm right lower lobe spiculated ma ss. PET scan in 04/05 however showed the mass to be smaller at 9 mm with low level FDG avidity, more consistent with inflammation. CXR in hospital showed a moderate left-sided pleural effusion. CT chest confirmed moderate to large left-sided pleural effusion, as well as a significant pericardial effusion. The right lower lobe nodule was again seen, stable. She was also noted to have hypocalcemia, as well as hyponatremia and hypokalemia. She underwent pericardial window, as well as paracentesis on 06/04/24. Pathology was negative for malignancy, showing inflammatory changes. Labs done in patient showed high AMNA of 1:1240. Pt improved after fluid drainage, and was able to discharged. She has not had recurrence of those symptoms since, and was seen in the office for her first visit on 06/24/24. She denied any known diagnosis personally of an autoimmune disease, but stated that her daughter has known rheumatoid arthritis. She was referred to rheumatology. Apparently workup with them did not show any definite evidence of autoimmune disease. She continued follow-up with Pulmonary medicine. She developed right-sided lower chest wall pain, starting on mid 09/06. She had repeat imaging with CT scan, PET scan and then repeat bronchoscopy the end of 09/06. Repeat imaging showed significant growth in the right lower lobe nodule, into the 3 cm range. PET scan revealed increased u ptake in this area, as well as uptake in a 5 cm plus subcarinal mass, and in a right hilar lymph node. The patient's bronchoscopy with biopsy from the right lower lobe mass showed poorly differentiated neuroendocrine carcinoma, predominantly large cell type. Biopsy from station 7 lymph node was also positive for poorly differentiated carcinoma. PET scan reveals some subtle uptake in the right anterolateral lateral chest wall area just above the diaphragm, without any associated anatomical abnormality or fluid seen. There was no evidence of recurrent fluid on the left side, or in the pericardium. As the right chest wall appeared to be the only area of involvement, outside the primary site and mediastinum, a biopsy was recommended. Suitable target was not seen by IR. The patient was then referred to cardiology thoracic surgery, and had the procedure on 10/08/24. Thoracoscopy showed obvious involvement of the pleura with metastases, with biopsy confirming the same pathology. Biomarker testing showed PD1 less than 1%, with no other actionable mutation. She was PTEN positive, with a targeted agent available, but not approved for lung cancer. She was referred for palliative radiation to the chest wall, completing that October of 2024. She was then started on systemic therapy with PATTERN WEAVER- 16/carboplatin/keytruda on 11/03/24, is status post 4 cycles. G-CSF was added with cycle 2 onwards She was admitted to the hospital after cycle 2, with dehydration, multiple electrolyte abnormalities, weakness as well as possible pneumonia and colitis. She also had significant cytopenias related to chemotherapy. The patient improved with aggressive supportive care and was discharged on 12/09/24. Chemotherapy dose was reduced by 10% for cycle 3. She tolerated cycle 3 much better. She was seen 12/31/24 in ofc with plans to restage after cycle 4. Which she had 6/2-6/4 with GCSF on 01[facility]15. [facility]. She was found to anemic with a Hgb of 6.9, she received a unit of blood and Hgb was 6.9, she is pending another unit. She denies any bleeding. She feels better since admit. Pt denied fevers, oral irritation, N,V, cough, chest pain, abd pain, acute changes in bowel or bladder, swelling, or pain. 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, pleural effusion & pericardial effusion May 2024, lung ca diagnosed Aug 2024- 2 rounds of chemo so far, one radiation tx History of Any Multi-Drug Resistant Organisms: None Reported Past Surgical History: Breast Surgery Additional Past Surgical History / Comment(s): left breast lumpectomy x 2 "precancerous", colonoscopy, EGD, bronchoscopy, thoracoscopy Past Anesthesia/Blood Transfusion Reactions: No Reported Reaction, Family History of Problems w/ Anesthesia Additional Past Anesthesia/Blood Transfusion Reaction / Comm: daughter has hard time coming out of anesthesia Smoking Status: Former smoker - Past Family History Brother(s) Family Medical History: Pulmonary Embolus Mother Family Medical History: Memory Impairment Additional Family Medical History / Comment(s): from Alzheimer's. Father Additional Family Medical History / Comment(s): from unknown cause, possibly his heart. Medications and Allergies Home Medications Medication Instructions Recorded Confirmed Type Ondansetron [Zofran] 4 - 8 mg PO Q4H PRN 11/29/24 01/20/25 History Acetaminophen Tab [Tylenol] 650 mg PO Q6HR PRN tab 12/09/24 01/20/25 Rx Loperamide [Imodium] 2 mg PO Q2HR PRN cap 12/09/24 01/20/25 Rx Magnesium Oxide [Mag-Ox] 400 mg PO DAILY #7 tab 12/09/24 01/20/25 Rx Prochlorperazine [Compazine] 10 mg PO Q6H PRN #30 tab 12/09/24 01/20/25 Rx Omeprazole Magnesium [PriLOSEC OTC] 20 mg PO DAILY 12/30/24 01/20/25 History traMADol HCL 50 mg PO Q6H PRN 30 Days #90 tab 01/15/25 01/20/25 Rx Potassium Chloride ER [K-Dur 20] 20 meq PO DAILY 01/20/25 01/20/25 History Allergies Allergy/AdvReac Type Severity Reaction Status Date / Time No Known Allergies Allergy Verified 01/20/25 11:26 Physical Exam Vitals: Vital Signs Temp Pulse Pulse Pulse Resp BP BP 01/21/25 07:08 98.4 F 98 16 124/70 01/21/25 01:54 99.0 F 103 H 18 115/73 01/20/25 19:41 99.3 F 101 H 16 138/84 01/20/25 17:54 98.8 F 101 H 18 136/77 01/20/25 17:52 98.8 F 97 18 131/71 01/20/25 15:10 99.6 F 104 H 18 118/78 01/20/25 14:50 98.6 F 111 H 18 131/77 01/20/25 14:37 99.1 F 110 H 20 116/73 01/20/25 13:00 113 H 18 115/81 01/20/25 10:56 107 H 20 124/86 01/20/25 09:20 97.2 F L 50 L 14 104/73 Pulse Ox 01/21/25 07:08 100 01/21/25 01:54 98 01/20/25 19:41 97 01/20/25 17:54 01/20/25 17:52 01/20/25 15:10 01/20/25 14:50 01/20/25 14:37 100 01/20/25 13:00 98 01/20/25 10:56 01/20/25 09:20 91 L Intake and Output 01/20/25 01/21/25 01/21/25 22:59 06:59 14:59 Intake Total 310 Balance 310 Intake: Blood Product 310 Rc As-1 Unit 310 [id number] Other: Voiding Method Toilet # Voids 1 2 1 Weight 49.895 kg - Constitutional General appearance: average body habitus, cooperative, no acute distress - EENT Eyes: anicteric sclerae, EOMI ENT: hearing grossly normal, normal oropharynx - Neck Neck: no lymphadenopathy - Respiratory Respiratory: bilateral: CTA - Cardiovascular Rhythm: regular Heart sounds: normal: S1, S2 Abnormal Heart Sounds: no systolic murmur, no diastolic murmur, no rub, no S3 Gallop, no S4 Gallop, no click, no other leg Peripheral Edema: bilateral: None - Gastrointestinal General gastrointestinal: no absent bowel sounds, no decreased bowel sounds, no distended, no hepatomegaly, no hyperactive bowel sounds, normal bowel sounds, no organomegaly, no rigid, no scaphoid, soft, no splenomegaly, no tenderness, no umbilical hernia, no ventral hernia - Integumentary Integumentary: normal - Neurologic Neurologic: CNII-XII intact - Musculoskeletal Musculoskeletal: strength equal bilaterally - Psychiatric Psychiatric: A&O x's 3, appropriate affect, intact judgment & insight Results CBC & Chem 7: 01/21/25 05:02 01/21/25 04:28 Labs: Abnormal Lab Results - Last 24 Hours (Table) 01/20/25 01/20/25 01/20/25 Range/Units 10:39 10:39 10:57 WBC 1.93 L (4.50-10.00) 10*3/uL RBC 2.01 L (4.10-5.20) 10*6/uL Hgb 6.9 L* D (12.0-15.0) g/dL Hct 20.4 L (37.2-46.3) % MCV 101.5 H D (80.0-97.0) fL MCH 34.3 H (27.0-32.0) pg RDW (11.5-14.5) % Plt Count 104 L D (140-440) 10*3/uL Neutrophils # (Manual) 1.06 L (1.3-7.7) k/uL Lymphocytes # (Manual) 0.73 L (1.0-4.8) k/uL Sodium 135 L (137-145) mmol/L BUN 21 H (7-17) mg/dL Glucose 105 H (74-99) mg/dL Alkaline Phosphatase 168 H (38-126) U/L Total Protein 5.9 L (6.3-8.2) g/dL Ur Leukocyte Esterase Small H (Negative) Urine WBC 6 H (0-5) /hpf Hyaline Casts 11 H (0-2) /lpf Urine Mucus Rare H (None) /hpf Crossmatch 01/20/25 01/21/25 01/21/25 Range/Units 13:00 04:28 05:02 WBC 2.57 L (4.50-10.00) 10*3/uL RBC 2.10 L (4.10-5.20) 10*6/uL Hgb 6.9 L* (12.0-15.0) g/dL Hct 20.8 L (37.2-46.3) % MCV 99.0 H (80.0-97.0) fL MCH 32.9 H (27.0-32.0) pg RDW 18.8 H (11.5-14.5) % Plt Count 72 L (140-440) 10*3/uL Neutrophils # (Manual) 0.79 L (1.3-7.7) k/uL Lymphocytes # (Manual) (1.0-4.8) k/uL Sodium 132 L (137-145) mmol/L BUN (7-17) mg/dL Glucose (74-99) mg/dL Alkaline Phosphatase (38-126) U/L Total Protein (6.3-8.2) g/dL Ur Leukocyte Esterase (Negative) Urine WBC (0-5) /hpf Hyaline Casts (0-2) /lpf Urine Mucus (None) /hpf Crossmatch See Detail Chest x-ray: report reviewed Assessment and Plan (1) Weakness Current Visit: Yes Status: Acute Priority: High Code(s): R53.1 - WEAKNESS SNOMED Code(s): 00880658 (2) Antineoplastic chemotherapy induced pancytopenia Current Visit: Yes Status: Acute Priority: High Code(s): D61.810 - ANTINEOPLASTIC CHEMOTHERAPY INDUCED PANCYTOPENIA; T45.1X5A - ADVERSE EFFECT OF ANTINEOPLASTIC AND IMMUNOSUP DRUGS, INIT SNOMED Code(s): 970431545399676 (3) Large cell carcinoma Current Visit: Yes Status: Acute Priority: High Code(s): C80.1 - MALIGNANT (PRIMARY) NEOPLASM, UNSPECIFIED SNOMED Code(s): 733543895 Plan: Weakness -Secondary to severe anemia from chemotherapy -Hgb was 6.9 on admit, she received a unit of blood, Hgb was still 6.9. She has received another unit. Subjectively the patient reports feeling significantly better. Patient did not report any bleeding. Suspect patient may have been slightly hemoconcentrated on admission that may account for no significant change in her Hgb. CBC will be rechecked in AM, will see what Hgb increase to. Chemo induced pancytopenia - Patient has received transfusion for hemoglobin of 6.9 and symptoms. Transfuse for hemoglobin less than 7 or if patient is symptomatic - Patient received G-CSF on 01/15. No additional G-CSF at this time - Platelets in the 70,000 range. Adequate at this time. Transfuse for platelets less than 10,000 or if patient is symptomatic. Large cell carcinoma of the lung - Diagnosis and treatment circumstances as described in HPI - Patient is due for treatment follow-up imaging. These will be ordered outpt -Patient has a follow-up with primary Medical Oncologist Once patient's hemoglobin is satisfactorily greater than 7, from a Hematology/Oncology standpoint she can be discharged as long as she is cleared by Internal Medicine and any other consulting Physicians Doctor attests: I performed a history and physical examination of this patient, developed impression and plan of care. Discussed with dictator. I agree with dictators note, documented as a scribe.
[2025-01-22 01:24] VITALS: PULSE 89
[2025-01-22 05:09] LABS: MCH 32.1 pg (27.0-32.0); MCHC 33.5 g/dL (32.0-37.0); MCV 95.9 fL (80.0-97.0); Mean Platelet Volume 11.3 fL (9.5-12.2); RBC 2.71 10*6/uL (4.10-5.20); RDW 18.9 % (11.5-14.5)
[2025-01-22 05:48] LABS: HGB 8.7 g/dL (12.0-15.0); Platelet Count 61 10*3/uL (140-440)
[2025-01-22 07:23] VITALS: BP 136/79; RESP 20; TEMP 98.6
--- NOTE | 2025-01-22 12:18 | P.DS ---
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 Patient reports increasing weakness that started on Sunday. She mentions receiving infusion last week on 01/14/25, currently she is on the fourth round. She reports having a similar reaction after the second round and was admitted here. Initial evaluation in the ED showed vitals T 97.2 F, NH 50 bpm, RR 14, BP 104/73, SpO2 91% on room air. EKG independently interpreted as sinus tachycardia, rate 106 bpm, QTc 407 ms. Chest x-ray shows no acute pulmonary process. Labs showed WBC 1.93, hemoglobin 6.9, MCV 101.5, platelet count 104, ALP 168. At that point patient was transfused 1 unit PRBC. CBC obtained the next day showed hemoglobin 6.9. Patient was transfused 1 more unit of PRBC. Oncology was consulted and they recommended no additional G-CSF at this time. Patient has been optimized for discharge. Patient seen at bedside today and is feeling good and excited about discharge. Patient will be discharged today. Patient is given a handout for anemia, blood transfusion, pancytopenia and is advised to be compliant with medications. Patient is advised to follow-up with PCP on 01/27/2025 at 10 AM, oncologist on 01/30/2025 at 8 AM. Vital signs are reviewed and stable General: nontoxic, no distress, appears at stated age Derm: warm, dry, intact Head: atraumatic, normocephalic, symmetric Eyes: EOMI, anicteric sclera Mouth: no lip lesion, mucus membranes moist Cardiovascular: S1 S2 reg, no murmur Lungs: CTA bilateral, no rhonchi, no rales, no accessory muscle use Abdominal: soft, non-tender to palpation Extremities: No cyanosis, clubbing, or pedal edema. Neuro: Alert, Oriented, strength 4/5 in all 4 extremities Psych: well appearing, appropriate affect A total of 30 minutes of time were spent preparing this complex discharge summary. Patient was discharged on 01/22/25 at 0944. Dictation was produced using [employer] dictation software. please excuse any grammatical, word or spelling error Garth Santos MD PGY-1 IM I have seen and evaluated the patient today. Discussed with the resident and agree with the residents finding and plan as documented in the resident's note. Changes highlighted in blue font. Patient Condition at Discharge: Stable Plan - Discharge Summary New Discharge Prescriptions: Continue Loperamide [Imodium] 2 mg PO Q2HR PRN cap PRN Reason: Loose Stool Acetaminophen Tab [Tylenol] 650 mg PO Q6HR PRN tab PRN Reason: Mild Pain Or Fever > 100.5 Omeprazole Magnesium [PriLOSEC OTC] 20 mg PO DAILY Ondansetron [Zofran] 4 - 8 mg PO Q4H PRN PRN Reason: Nausea Magnesium Oxide [Mag-Ox] 400 mg PO DAILY #7 tab Prochlorperazine [Compazine] 10 mg PO Q6H PRN #30 tab PRN Reason: Nausea And Vomiting traMADol HCL 50 mg PO Q6H PRN 30 Days #90 tab PRN Reason: Pain Potassium Chloride ER [K-Dur 20] 20 meq PO DAILY Discharge Medication List Ondansetron [Zofran] 4 - 8 mg PO Q4H PRN 11/29/24 [History] Acetaminophen Tab [Tylenol] 650 mg PO Q6HR PRN tab 12/09/24 [Rx] Loperamide [Imodium] 2 mg PO Q2HR PRN cap 12/09/24 [Rx] Magnesium Oxide [Mag-Ox] 400 mg PO DAILY #7 tab 12/09/24 [Rx] Prochlorperazine [Compazine] 10 mg PO Q6H PRN #30 tab 12/09/24 [Rx] Omeprazole Magnesium [PriLOSEC OTC] 20 mg PO DAILY 05/20/25 [History] traMADol HCL 50 mg PO Q6H PRN 30 Days #90 tab 01/15/25 [Rx] Potassium Chloride ER [K-Dur 20] 20 meq PO DAILY 01/20/25 [History] Follow up Appointment(s)/Referral(s): Reno Moser [STAFF PHYSICIAN] - 01/30/25 8:00 am Osmin Heller DO [Primary Care Provider] - 01/27/25 10:00 am Patient Instructions/Handouts: Anemia (GEN), Blood Transfusion (DC), Pancytopenia (GEN) Activity/Diet/Wound Care/Special Instructions: Patient is due for treatment follow-up imaging. These will be ordered outpt -Patient has a follow-up with primary Medical Oncologist Discharge Disposition: HOME SELF-CARE
== END 2025-01-22 11:51 | disposition home or self-care (01) | DRG 809 ==
LOC: EC 09:18 → 5NMEDONC 13:12
PROVIDERS: ADMIT Student in an Organized Health Care Education/Training Program; ATTEND Student in an Organized Health Care Education/Training Program
PROC: 30233N1 Transfusion of Nonautologous Red Blood Cells into Peripheral Vein, Percutaneous Approach (ICD-10-PCS; principal; 2025-01-20)
DX: D61.1 Drug-induced aplastic anemia (principal); C79.51 Secondary malignant neoplasm of bone; C7A.8 Other malignant neuroendocrine tumors; E83.51 Hypocalcemia; D47.1 Chronic myeloproliferative disease; E86.0 Dehydration; I48.91 Unspecified atrial fibrillation; D63.8 Anemia in other chronic diseases classified elsewhere; E87.1 Hypo-osmolality and hyponatremia; K21.9 Gastro-esophageal reflux disease without esophagitis; H47.093 Other disorders of optic nerve, not elsewhere classified, bilateral; H54.7 Unspecified visual loss; E87.6 Hypokalemia; T45.1X5A Adverse effect of antineoplastic and immunosuppressive drugs, initial encounter; Z87.891 Personal history of nicotine dependence; Z79.899 Other long term (current) drug therapy; Z86.79 Personal history of other diseases of the circulatory system
CPT/HCPCS: 36415; 36430; 71046; 80048; 80053; 81001; 82607; 82728; 82747; 83540; 83550; 83605; 83615; 83735; 84484; 85025; 85027; 85045; 85610; 85730; 86850; 86900; 86901; 86920; 93005; 96360; 99291

== ENCOUNTER → 2025-01-30 | Outpatient (CLI) | payer MEDICARE ==
--- NOTE | 2025-02-01 22:41 | PE ---
EXAMINATION TYPE: PET CT fusion skull to thigh DATE OF EXAM: 01/30/2025 COMPARISON: CT abdomen and pelvis 12/03/2024 Prior PET/CT: 09/11/2024 CLINICAL INDICATION: Female, 74 years old with history of C34.31 LUNG CANCER, history of breast and l ymph cancer TECHNIQUE: Following the intravenous administration of 12.3 mCi of F-18 FDG, whole body images are p erformed PET CT fusion skull to thigh. Images are reviewed on the computer in the coronal, axial, an d sagittal planes. Reconstructed rotating images are created on independent workstation and reviewed on the computer. A localization and attenuation correction CT is performed in conjunction with the PET scan. DLP: 357 mGycm SCAN: Subsequent Blood glucose: 90 mg/dL Average Mediastinum SUV: 1.8 Average Liver SUV: 2.56 FINDINGS: NECK: There may be a supraclavicular node with increased uptake in the right supraclavicular region, image 65, SUV 2.94. THORAX: There is a paratracheal lymph node image 84, SUV 3.61. There is a large intense uptake in the subcutaneous carinal region image 97, SUV 6.2. Previous SUV 8. 03. Additional right infrahilar uptake is present, example image 103, SUV 4.33. Previous SUV 5.25 There is uptake within a lung nodule in the posterior right lung base image 27, SUV 3.93. Previous PEREZ V 4.89. ABDOMEN: There are multiple small areas of uptake within the left or right lobes of liver suspicious for metastatic disease. Example image 145, has SUV 5.08. These appear to be new from comparison. PELVIS: No abnormal uptake OSSEOUS STRUCTURES: There is diffuse mild uptake scattered throughout multiple osseous structures. Ex amples would include bilateral proximal diaphyseal femurs within the sacral ala and right iliac crest , lower thoracic vertebral bodies within the sternum and mild diffuse scattered ribs bilaterally. LOCALIZATION CT: Suspicious lesions are better visualized on the prior CT abdomen and pelvis and on t he current CT however, these areas are suspicious based on the PET images. Lung mass in the subcarina l region is evident. Smaller lymphadenopathy there is hyperintense on PET/CT is not as well visualize d by CT. COMPARISON: Posterior right lung nodule has diminished in size but remains hyperintense. Uptake within the right hilar region appears greater than comparison IMPRESSION: 1. Posterior right lung nodules diminished in size but remains diffusely hyperintense. 2. There is better visualization of right hilar adenopathy and subcarinal uptake. SUV values however diminished over the interval. 3. Multiple small scattered areas of abnormal uptake within the right and left lobes of the liver elsi picious for multiple metastatic disease. This is an interval change. 4. Multiple areas of uptake within osseous structures. This is somewhat nonspecific and could be rela amanda to treatment changes. Metastasis however is not excluded at this time. [facility], , 02/01/2025 10:38 PM
== END | disposition home or self-care (01) ==
LOC: RADPETMAIN 09:23
PROVIDERS: ATTEND Internal Medicine Hematology & Oncology
DX: C34.31 Malignant neoplasm of lower lobe, right bronchus or lung (principal); R91.8 Other nonspecific abnormal finding of lung field; R59.0 Localized enlarged lymph nodes
CPT/HCPCS: 78815; A9552

== ENCOUNTER 2025-02-06 20:31 | Inpatient (IN) | payer MEDICARE ==
--- NOTE | 2025-02-06 21:16 | ED ---
Weakness HPI - General Chief complaint: Weakness Stated complaint: Difficulty walking, pain all over Time Seen by Provider: 02/06/25 20:47 Source: patient, family, RN notes reviewed Mode of arrival: wheelchair Limitations: physical limitation - History of Present Illness Initial comments: This is a 74-year-old female with history including small cell lung CA, A-fib and pneumonia presenting with for weakness for the past several days. Patient states she recently finished a round of chemotherapy spanning from 02/02/2025 to 02/04/2025. Patient states she is having difficulty sitting upright due to weakness with associated decreased appetite, transient dyspnea and right rib/flank pain (8/10) is ongoing despite use of Ass[place]oman every 4 hours, last taken at 1530 today. Patient states right chest pain does not worsen with inspiration or cough but is extremely tender. Patient states she has been admitted before for the symptoms following chemotherapy in the past. Patient states she "received a shot" following chemotherapy as treatment for pancytopenia. Patient states she has a follow-up appointment with Dr. Rueda on 02/11/2025. Denies fever, mid/left chest pain, abdominal pain, N/V/D, dysuria. MD Complaint: generalized weakness, lack of energy Onset/Timin -: days(s) Location: generalized Severity scale (1-10): 8 Consistency: constant Context: other (Chemotherapy) Associated Symptoms: loss of appetite - Related Data Home Medications Medication Instructions Recorded Confirmed Ondansetron [Zofran] 4 - 8 mg PO Q4H PRN 11/29/24 01/20/25 Omeprazole Magnesium [PriLOSEC OTC] 20 mg PO DAILY 12/30/24 01/20/25 Potassium Chloride ER [K-Dur 20] 20 meq PO DAILY 01/20/25 01/20/25 Previous Rx's Medication Instructions Recorded Acetaminophen Tab [Tylenol] 650 mg PO Q6HR PRN tab 12/09/24 Loperamide [Imodium] 2 mg PO Q2HR PRN cap 12/09/24 Magnesium Oxide [Mag-Ox] 400 mg PO DAILY #7 tab 12/09/24 Prochlorperazine [Compazine] 10 mg PO Q6H PRN #30 tab 12/09/24 traMADol HCL 50 mg PO Q6H PRN 30 Days #90 tab 01/15/25 Allergies Allergy/AdvReac Type Severity Reaction Status Date / Time No Known Allergies Allergy Verified 01/20/25 11:26 Review of Systems ROS Statement: Those systems with pertinent positive or pertinent negative responses have been documented in the HPI. ROS Other: All systems not noted in ROS Statement are negative. 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, pleural effusion & pericardial effusion May 2024, lung ca diagnosed Aug 2024- 2 rounds of chemo so far, one radiation tx History of Any Multi-Drug Resistant Organisms: None Reported Past Surgical History: Breast Surgery Additional Past Surgical History / Comment(s): left breast lumpectomy x 2 "prec ancerous", colonoscopy, EGD, bronchoscopy, thoracoscopy Past Anesthesia/Blood Transfusion Reactions: No Reported Reaction, Family History of Problems w/ Anesthesia Additional Past Anesthesia/Blood Transfusion Reaction / Comment(s): daughter has hard time coming out of anesthesia Past Psychological History: Depression Smoking Status: Former smoker - Past Family History Brother(s) Family Medical History: Pulmonary Embolus Mother Family Medical History: Memory Impairment Additional Family Medical History / Comment(s): from Alzheimer's. Father Additional Family Medical History / Comment(s): from unknown cause, possibly his heart. General Exam Limitations: no limitations, physical limitation General appearance: alert, in no apparent distress, cachectic Head exam: Present: atraumatic, normocephalic, normal inspection Eye exam: Present: normal appearance, PERRL, EOMI. Absent: scleral icterus, conjunctival injection, periorbital swelling ENT exam: Present: normal exam, mucous membranes dry Neck exam: Present: normal inspection. Absent: tenderness, meningismus, lymphadenopathy Respiratory exam: Present: chest wall tenderness (Positive exquisite right chest/mid axillary TTP without obvious crepitus.), decreased breath sounds. Absent: respiratory distress, wheezes, rales, rhonchi, stridor, accessory muscle use, prolonged expiratory Cardiovascular Exam: Present: regular rate, normal rhythm, normal heart sounds. Absent: systolic murmur, diastolic murmur, rubs, gallop, clicks GI/Abdominal exam: Present: soft, normal bowel sounds. Absent: distended, tenderness, guarding, rebound, rigid Extremities exam: Present: normal inspection, full ROM, normal capillary refill. Absent: tenderness, pedal edema, joint swelling, calf tenderness Back exam: Present: normal inspection Neurological exam: Present: alert, oriented X3, CN II-XII intact Psychiatric exam: Present: normal affect, normal mood Skin exam: Present: warm, dry, intact, normal color. Absent: rash Course Vital Signs 02/06/25 02/06/25 02/06/25 20:35 21:52 23:27 Temperature 97.5 F L 97.8 F Pulse Rate 59 L 117 H 99 Respiratory 18 18 16 Rate Blood Pressure 113/73 104/65 120/74 O2 Sat by Pulse 93 L 100 99 Oximetry 02/07/25 02/07/25 01:25 01:39 Temperature 97.7 F Pulse Rate 103 H 102 H Respiratory 18 16 Rate Blood Pressure 139/73 137/77 O2 Sat by Pulse 100 100 Oximetry Medical Decision Making - Medical Decision Making Was pt. sent in by a medical professional or institution (, PA, [facility], urgent care, hospital, or residential...) When possible be specific @ -No Did you speak to anyone other than the patient for history (EMS, parent, family, police, friend...)? What history was obtained from this source @ -Patient's provided portion of HPI Did you review nursing and triage notes (agree or disagree)? Why? @ -I reviewed and agree with nursing and triage notes Were old charts reviewed (outside hosp., previous admission, EMS record, old EKG, old radiological studies, urgent care reports/EKG's, residential records)? Report findings @ -No old charts were reviewed Differential Diagnosis (chest pain, altered mental status, abdominal pain women, abdominal pain men, vaginal bleeding, weakness, fever, dyspnea, syncope, headache, dizziness, GI bleed, back pain, seizure, CVA, palpatations, mental health, musculoskeletal)? @ -Differential Weakness: Hypoglycemia, shock, sepsis, hyponatremia, anemia, infection, OR, ETOH, adverse medicine reaction, overdose, stroke, this is not meant to be an all-inclusive list. EKG interpreted by me (3pts min.). @ -Sinus tachycardia with frequent PACs. No ST deviation or T wave inversion. Ventricular rate 127 bpm, JAY 144 ms, QRS 81 ms, QTc 461 ms. X-rays interpreted by me (1pt min.). @ -CXR shows no acute cardiopulmonary process with right chest wall port noted in correct position. CT interpreted by me (1pt min.). @ - AP CT shows obstructing 6 mm left UVJ stone without hydronephrosis, nonobstructing 7 mm right renal stone and moderate fecal retention. U/S interpreted by me (1pt. min.). @ -None done What testing was considered but not performed or refused? (CT, X-rays, U/S, labs)? Why? @ -None What meds were considered but not given or refused? Why? @ -None Did you discuss the management of the patient with other professionals (professionals i.e. , PA, [facility], lab, RT, psych nurse, social media specialist, veneer clipper helper, teacher, credit control officer, block and case maker)? Give summary @ - Dr. River from [facility] called and notified of patient admission. Was smoking cessation discussed for >3mins.? @ -No Was critical care preformed (if so, how long)? @ -No Were there social determinants of health that impacted care today? How? (Homelessness, low income, unemployed, alcoholism, drug addiction, transportation, low edu. Level, literacy, decrease access to med. care, nursing home, rehab)? @ -No Was there de-escalation of care discussed even if they declined (Discuss DNR or withdrawal of care, Hospice)? DNR status @ -No What co-morbidities impacted this encounter? (DM, HTN, Smoking, COPD, CAD, Cancer, CVA, ARF, Chemo, Hep., AIDS, mental health diagnosis, sleep apnea, morbid obesity)? @ -Small cell lung CA Was patient admitted / discharged? Hospital course, mention meds given and route, prescriptions, significant lab abnormalities, going to OR and other pertinent info. @ -Patient initially provided IV normal saline and Dilaudid, with patient subsequently noting some pain relief from 810 to 510. Lab work notable for WBC 63.3 with left shift, stable hemoglobin 9.3 and platelets 367. BUN 25, glucose 116 and mildly elevated alkaline phosphatase 166. LFTs and kidney function otherwise unremarkable. Cepheid test negative. UA shows indication of UTI. CXR shows no acute cardiopulmonary process with right chest wall port n oted in correct position. AP CT shows obstructing 6 mm left UVJ stone without hydronephrosis, nonobstructing 7 mm right renal stone and moderate fecal retention. Patient notes pain is in her right flank, not left. Patient heart rate is labile, but occasionally tachycardic, with elevated white count and source of infection as indication for possible sepsis. Patient started on broad-spectrum antibiotics, vancomycin and cefepime. Dr. River from [facility] called and notified of patient admission. Discussed patient with Dr. Huffman. Undiagnosed new problem with uncertain prognosis? @ -No Drug Therapy requiring intensive monitoring for toxicity (Heparin, Nitro, Insulin, Cardizem)? @ -No Were any procedures done? @ -No Diagnosis/symptom? @ -Urosepsis, obstructing ureterolithiasis Acute, or Chronic, or Acute on Chronic? @ -Acute Uncomplicated (without systemic symptoms) or Complicated (systemic symptoms)? @ -Complicated Side effects of treatment? @ -No Exacerbation, Progression, or Severe Exacerbation? @ -No Poses a threat to life or bodily function? How? (Chest pain, USA, OR, pneumonia, PE, COPD, DKA, ARF, appy, cholecystitis, CVA, Diverticulitis, Homicidal, Suicidal, threat to staff... and all critical care pts) @ -Sepsis, endorgan damage - Lab Data Result diagrams: 02/07/25 00:37 02/06/25 21:31 Lab Results 02/06/25 02/06/25 02/06/25 Range/Units 21:31 21:31 21:31 WBC 63.30 H* (4.50-10.00) 10*3/uL RBC 2.84 L (4.10-5.20) 10*6/uL Hgb 9.3 L (12.0-15.0) g/dL Hct 27.7 L (37.2-46.3) % MCV 97.5 H (80.0-97.0) fL MCH 32.7 H (27.0-32.0) pg MCHC 33.6 (32.0-37.0) g/dL Plt Count 367 D (140-440) 10*3/uL MPV 10.1 (9.5-12.2) fL Immature Gran % (Auto) 11.0 % Neutrophils % (Manual) 96 % Lymphocytes % (Manual) 4 % Metamyelocytes % 1 % Immature Gran # 6.98 H (0.00-0.04) 10*3/uL Neutrophils # (Manual) 60.77 H (1.3-7.7) k/uL Lymphocytes # (Manual) 2.53 (1.0-4.8) k/uL Metamyelocytes # (Man) 0.63 H (0) k/uL Nucleated RBCs 0 (0-0) /100 WBC Manual Slide Review Performed Dimorphic RBCs Present Sodium 134 L (137-145) mmol/L Potassium 3.8 (3.5-5.1) mmol/L Chloride 99 (98-107) mmol/L Carbon Dioxide 26 (22-30) mmol/L Anion Gap 9 mmol/L BUN 25 H (7-17) mg/dL Creatinine 0.89 (0.52-1.04) mg/dL Est GFR (CKD-EPI)AfAm 75 (>60 ml/min/1.73 sqM) Est GFR (CKD-EPI)NonAf 65 (>60 ml/min/1.73 sqM) Glucose 116 H (74-99) mg/dL POC Glucose (mg/dL) (70-110) mg/dL POC Glu Ready To Wear Department Manager ID Plasma Lactic Acid Ezekiel 1.5 (0.7-2.0) mmol/L Calcium 9.4 (8.4-10.2) mg/dL Magnesium 1.6 (1.6-2.3) mg/dL Total Bilirubin 0.9 (0.2-1.3) mg/dL AST 35 (14-36) U/L ALT 19 (4-34) U/L Alkaline Phosphatase 166 H (38-126) U/L Total Protein 5.9 L (6.3-8.2) g/dL Albumin 3.8 (3.5-5.0) g/dL Influenza Type A (PCR) (Not Detectd) Influenza Type B (PCR) (Not Detectd) RSV (PCR) (Not Detectd) SARS-CoV-2 (PCR) (Not Detectd) 02/06/25 02/06/25 02/07/25 Range/Units 21:31 21:38 00:37 WBC 57.99 H* (4.50-10.00) 10*3/uL RBC 2.62 L (4.10-5.20) 10*6/uL Hgb 8.6 L (12.0-15.0) g/dL Hct 25.5 L (37.2-46.3) % MCV 97.3 H (80.0-97.0) fL MCH 32.8 H (27.0-32.0) pg MCHC 33.7 (32.0-37.0) g/dL Plt Count 324 (140-440) 10*3/uL MPV 10.1 (9.5-12.2) fL Immature Gran % (Auto) % Neutrophils % (Manual) % Lymphocytes % (Manual) % Metamyelocytes % % Immature Gran # (0.00-0.04) 10*3/uL Neutrophils # (Manual) (1.3-7.7) k/uL Lymphocytes # (Manual) (1.0-4.8) k/uL Metamyelocytes # (Man) (0) k/uL Nucleated RBCs (0-0) /100 WBC Manual Slide Review Dimorphic RBCs Sodium (137-145) mmol/L Potassium (3.5-5.1) mmol/L Chloride (98-107) mmol/L Carbon Dioxide (22-30) mmol/L Anion Gap mmol/L BUN (7-17) mg/dL Creatinine (0.52-1.04) mg/dL Est GFR (CKD-EPI)AfAm (>60 ml/min/1.73 sqM) Est GFR (CKD-EPI)NonAf (>60 ml/min/1.73 sqM) Glucose (74-99) mg/dL POC Glucose (mg/dL) 130 H (70-110) mg/dL POC Glu Ready To Wear Department Manager ID Richi Welch Plasma Lactic Acid Ezekiel (0.7-2.0) mmol/L Calcium (8.4-10.2) mg/dL Magnesium (1.6-2.3) mg/dL Total Bilirubin (0.2-1.3) mg/dL AST (14-36) U/L ALT (4-34) U/L Alkaline Phosphatase (38-126) U/L Total Protein (6.3-8.2) g/dL Albumin (3.5-5.0) g/dL Influenza Type A (PCR) Not Detected (Not Detectd) Influenza Type B (PCR) Not Detected (Not Detectd) RSV (PCR) Not Detected (Not Detectd) SARS-CoV-2 (PCR) Not Detected (Not Detectd) Disposition Clinical Impression: UTI (urinary tract infection), Leukocytosis, Sepsis, Ureterolithiasis Disposition: ADMITTED IP TO THIS HOSP Condition: Fair Time of Disposition: 00:28 Decision Date: 02/07/25 Decision Time: 00:28
[2025-02-06 21:41] LABS: Glucose,Whole Blood 130 mg/dL (70-110)
[2025-02-06] MEDS: HYDROmorphone 1 MG/ML 1 ML SYRINGE IVP STA (21:49)
--- NOTE | 2025-02-06 21:49 | XR ---
EXAMINATION TYPE: XR chest 2V DATE OF EXAM: 02/06/2025 9:42 PM COMPARISON: Chest radiographs from CLINICAL INDICATION: Female, 74 years old with history of Right chest/flank pain/TTP; [facility] TECHNIQUE: XR chest 2V Frontal and lateral views of the chest. FINDINGS: Lungs/Pleura: There is no evidence of pleural effusion, focal consolidation, or pneumothorax. Pulmonary vascularity: Unremarkable. Heart/mediastinum: Cardiomediastinal silhouette is unremarkable. Musculoskeletal: No acute osseous pathology. Other findings: None Lines/Tubes: Right chest wall port catheter with distal catheter tip terminating in the region of the distal SVC. IMPRESSION: No acute cardiopulmonary disease/process. [facility], , 02/06/2025 9:47 PM
[2025-02-06] MEDS: SODIUM CHLORIDE 0.9% 1,000 ML IV STA (21:51)
[2025-02-06 22:08] LABS: HCT 27.7 % (37.2-46.3); HGB 9.3 g/dL (12.0-15.0); MCH 32.7 pg (27.0-32.0); MCHC 33.6 g/dL (32.0-37.0); MCV 97.5 fL (80.0-97.0); RBC 2.84 10*6/uL (4.10-5.20); RDW 18.8 % (11.5-14.5)
[2025-02-06 22:15] LABS: Platelet Count 367 10*3/uL (140-440)
[2025-02-06 22:21] LABS: RSV Not Detected (Not Detectd)
[2025-02-06 22:27] LABS: ALT 19 U/L (4-34); AST 35 U/L (14-36); African American GFR (CKD) 75 (>60 ml/min/1.73 sqM); Albumin 3.8 g/dL (3.5-5.0); Alkaline Phosphatase 166 U/L (38-126); Anion Gap 9 mmol/L; Blood Urea Nitrogen 25 mg/dL (7-17); Calcium 9.4 mg/dL (8.4-10.2); Carbon Dioxide 26 mmol/L (22-30); Chloride 99 mmol/L (98-107); Glucose 116 mg/dL (74-99); Magnesium 1.6 mg/dL (1.6-2.3); Non-African American GFR(CKD) 65 (>60 ml/min/1.73 sqM); Potassium 3.8 mmol/L (3.5-5.1); Sodium 134 mmol/L (137-145); Total Protein 5.9 g/dL (6.3-8.2)
[2025-02-06 23:22] LABS: Lymphocytes # (M) 2.53 k/uL (1.0-4.8); Metamyelocytes # (M) 0.63 k/uL (0); Neutrophils # (M) 60.77 k/uL (1.3-7.7); Neutrophils % (M) 96 %; Total Cells Counted 200
[2025-02-06 23:28] LABS: Mixed Population RBC Present
[2025-02-07] MEDS: CEFEPIME 2 GM in SODIUM CHLORIDE 0.9% 100 ML IVPB STA (00:15)
[2025-02-07 00:23] LABS: Amorphous Sediment,Urine Rare /hpf; Bacteria,Urine Occasional /hpf; Bilirubin,Urine Negative (Negative); Blood,Urine Negative (Negative); Color,Urine Light Yellow; Glucose,Urine (UA) Negative (Negative); Hyaline Casts,Urine 49 /lpf (0-2); Ketones,Urine Negative (Negative); Leukocyte Esterase,Urine Moderate (Negative); Mucus,Urine Occasional /hpf; Nitrite,Urine Negative (Negative); PH, Urine 5.5 (5.0-8.0); Protein,Urine Negative (Negative); RBC,Urine 2 /hpf (0-5); Specific Gravity,Urine 1.015 (1.001-1.035); Squamous Epithelial Cell,Urine 3 /hpf (0-4); Urobilinogen,Urine <2.0 mg/dL (<2.0); WBC,Urine 14 /hpf (0-5)
[2025-02-07] MEDS ORDERED: NALOXONE 0.4 MG/ML 1 ML VIAL IV PRN (00:28)
[2025-02-07] MEDS ORDERED: IBUPROFEN 400 MG TAB PO PRN (00:28)
[2025-02-07] MEDS ORDERED: ACETAMINOPHEN TAB 325 MG TAB PO PRN (00:28)
[2025-02-07] MEDS: VANCOMYCIN 1,000 MG in SODIUM CHLORIDE 0.9% 250 ML IVPB ONE (00:34)
[2025-02-07] MEDS: SODIUM CHLORIDE 0.9% 1,000 ML IV SCH (00:35)
--- NOTE | 2025-02-07 00:46 | P.HPIM ---
History of Present Illness H&P Date: 02/07/25 74-year-old female cancer Patient coming in for evaluation of not feeling well she reports that she recently had her cycle of chemotherapy and she typically feels this way after the sessions she cannot specify what exactly bothering her but she is reporting right upper quadrant right side of the chest pain worse with mobility she denies any diarrhea denies any burning with micturition denies any hematuria denies any GI bleeding denies any coughing fevers or chills denies any chest pain otherwise or trouble breathing. She said this happens often especially after she receives her injections and chemotherapy review of systems Pertinent positives as noted in HPI. All other systems were reviewed and are negative on exam Constitutional: No acute distress, conversant, cachectic Eyes: Anicteric sclerae, moist conjunctiva, Pupils equal round reactive to light ENMT: NC/AT Oropharynx clear, no erythema, or exudates Neck: Supple, no masses, or JVD No carotid bruits No thyromegaly Lungs: Clear to auscultation Clear to percussion Normal respiratory effort, no accessory muscle use Cardiovascular: Heart regular in rate and rhythm, No murmurs, gallops, or rubs No peripheral edema Abdominal: Soft Tenderness to deep palpation of the suprapubic region no guarding, rebound or rigidity Abdomen moving with respiration Normoactive bowel sounds Extremities: No digital cyanosis No clubbing Pedal pulses intact and symmetrical Radial pulses intact and symmetrical No calf tenderness Psychiatric: Alert and oriented to person, place and time Appropriate affect fair judgement Neuro Muscles Strength 5/5 in all 4 extremities Sensation to light touch grossly present throughout Cranial nerves II-XII grossly intact 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, pleural effusion & pericardial effusion May 2024, lung ca diagnosed Aug 2024- 2 rounds of chemo so far, one radiation tx History of Any Multi-Drug Resistant Organisms: None Reported Past Surgical History: Breast Surgery Additional Past Surgical History / Comment(s): left breast lumpectomy x 2 "precancerous", colonoscopy, EGD, bronchoscopy, thoracoscopy Past Anesthesia/Blood Transfusion Reactions: No Reported Reaction, Family History of Problems w/ Anesthesia Additional Past Anesthesia/Blood Transfusion Reaction / Comment(s): daughter has hard time coming out of anesthesia Past Psychological History: Depression Smoking Status: Former smoker - Past Family History Brother(s) Family Medical History: Pulmonary Embolus Mother Family Medical History: Memory Impairment Additional Family Medical History / Comment(s): from Alzheimer's. Father Additional Family Medical History / Comment(s): from unknown cause, possibly his heart. Medications and Allergies Home Medications Medication Instructions Recorded Confirmed Type Ondansetron [Zofran] 4 - 8 mg PO Q4H PRN 11/29/24 01/20/25 History Acetaminophen Tab [Tylenol] 650 mg PO Q6HR PRN tab 12/09/24 01/20/25 Rx Loperamide [Imodium] 2 mg PO Q2HR PRN cap 12/09/24 01/20/25 Rx Magnesium Oxide [Mag-Ox] 400 mg PO DAILY #7 tab 12/09/24 01/20/25 Rx Prochlorperazine [Compazine] 10 mg PO Q6H PRN #30 tab 12/09/24 01/20/25 Rx Omeprazole Magnesium [PriLOSEC OTC] 20 mg PO DAILY 12/30/24 01/20/25 History traMADol HCL 50 mg PO Q6H PRN 30 Days #90 tab 01/15/25 01/20/25 Rx Potassium Chloride ER [K-Dur 20] 20 meq PO DAILY 01/20/25 01/20/25 History Allergies Allergy/AdvReac Type Severity Reaction Status Date / Time No Known Allergies Allergy Verified 01/20/25 11:26 Physical Exam Vitals: Vital Signs Temp Pulse Resp BP Pulse Ox 02/06/25 23:27 99 16 120/74 99 02/06/25 21:52 97.8 F 117 H 18 104/65 100 02/06/25 20:35 97.5 F L 59 L 18 113/73 93 L Intake and Output 02/06/25 02/06/25 02/07/25 14:59 22:59 06:59 Other: Weight 49.895 kg Results CBC & Chem 7: 02/07/25 00:37 02/06/25 21:31 Labs: Abnormal Lab Results - Last 24 Hours (Table) 02/06/25 02/06/25 02/06/25 Range/Units 21:31 21:31 21:38 WBC 63.30 H* (4.50-10.00) 10*3/uL RBC 2.84 L (4.10-5.20) 10*6/uL Hgb 9.3 L (12.0-15.0) g/dL Hct 27.7 L (37.2-46.3) % MCV 97.5 H (80.0-97.0) fL MCH 32.7 H (27.0-32.0) pg Immature Gran # 6.98 H (0.00-0.04) 10*3/uL Neutrophils # (Manual) 60.77 H (1.3-7.7) k/uL Metamyelocytes # (Man) 0.63 H (0) k/uL Sodium 134 L (137-145) mmol/L BUN 25 H (7-17) mg/dL Glucose 116 H (74-99) mg/dL POC Glucose (mg/dL) 130 H (70-110) mg/dL Alkaline Phosphatase 166 H (38-126) U/L Total Protein 5.9 L (6.3-8.2) g/dL Ur Leukocyte Esterase (Negative) Urine WBC (0-5) /hpf Amorphous Sediment (None) /hpf Urine Bacteria (None) /hpf Hyaline Casts (0-2) /lpf Urine Mucus (None) /hpf 02/07/25 Range/Units 23:55 WBC (4.50-10.00) 10*3/uL RBC (4.10-5.20) 10*6/uL Hgb (12.0-15.0) g/dL Hct (37.2-46.3) % MCV (80.0-97.0) fL MCH (27.0-32.0) pg Immature Gran # (0.00-0.04) 10*3/uL Neutrophils # (Manual) (1.3-7.7) k/uL Metamyelocytes # (Man) (0) k/uL Sodium (137-145) mmol/L BUN (7-17) mg/dL Glucose (74-99) mg/dL POC Glucose (mg/dL) (70-110) mg/dL Alkaline Phosphatase (38-126) U/L Total Protein (6.3-8.2) g/dL Ur Leukocyte Esterase Moderate H (Negative) Urine WBC 14 H (0-5) /hpf Amorphous Sediment Rare H (None) /hpf Urine Bacteria Occasional H (None) /hpf Hyaline Casts 49 H (0-2) /lpf Urine Mucus Occasional H (None) /hpf Assessment and Plan Assessment: 34-year-old female with A-fib, lung cancer coming in for generalized weakness. ED doctor accepted the patient to rule out underlying infectious process due to elevated white count and abdominal pain Generalized weakness Rule out infectious process Significantly elevated white count historically patient has pancytopenia Continue to monitor Check CT of the abdomen and pelvis due to patient's abdominal pain Patient being treated with vancomycin dosing by pharmacy She received one-time course of Zosyn Supportive care Blood work overall showing Elevated white count 63.3 Anemia 9.3 patient felt better than her baseline Intractable right rib pain Management by as needed Dilaudid 0.5 mg Q3 -4 hours Renal function unremarkable sodium 134 potassium 3.3 BUN 24 creatinine 0.8 urine Urine analysis positive for moderate leukocyte esterase and white BCs Respiratory virus panel negative for COVID influenza and RSV Full code DVT prophylaxis Lovenox 40 mg subcu daily Follow-up CT of the abdomen pelvis results
[2025-02-07] MEDS ORDERED: VANCOMYCIN IV PER PHARMACY 1 EACH MISC MISCELLANE PRN (01:11)
[2025-02-07 01:12] LABS: HCT 25.5 % (37.2-46.3); HGB 8.6 g/dL (12.0-15.0); MCH 32.8 pg (27.0-32.0); MCHC 33.7 g/dL (32.0-37.0); MCV 97.3 fL (80.0-97.0); Platelet Count 324 10*3/uL (140-440); RBC 2.62 10*6/uL (4.10-5.20); RDW 18.7 % (11.5-14.5)
[2025-02-07 01:15] LABS: WBC 63.30 10*3/uL (4.50-10.00)
[2025-02-07 01:15] LABS: WBC 57.99 10*3/uL (4.50-10.00)
[2025-02-07] MEDS: HYDROmorphone 1 MG/ML 1 ML SYRINGE IVP PRN (01:26)
--- NOTE | 2025-02-07 02:54 | CT ---
EXAM: CT Abdomen and Pelvis With Intravenous Contrast CLINICAL HISTORY: ITS.REASON CT Reason: Leukocytosis TECHNIQUE: Axial computed tomography images of the abdomen and pelvis with intravenous contrast. CTDI is 15.7 mGy and DLP is 597.6 mGy-cm. This CT exam was performed using one or more of the following dose reduction techniques: automated exposure control, adjustment of the mA and/or kV according to patient size, and/or use of iterative reconstruction technique. COMPARISON: No relevant prior studies available. FINDINGS: Lung bases: Unremarkable. No mass. No consolidation. ABDOMEN: Liver: Hepatic cysts. Gallbladder and bile ducts: Unremarkable. No calcified stones. No ductal dilation. Pancreas: Unremarkable. No mass. No ductal dilation. Spleen: Unremarkable. No splenomegaly. Adrenals: Unremarkable. No mass. Kidneys and ureters: Obstructing 6 mm left UVJ stone. No hydronephrosis of the left kidney. Nonobstructing 7 mm right lower pole renal stones. Stomach and bowel: Moderate fecal retention, correlate for constipation. No acute diverticulitis. No small bowel obstruction. No free air. PELVIS: Appendix: No findings to suggest acute appendicitis. Bladder: Unremarkable. No mass. Reproductive: Unremarkable as visualized. ABDOMEN and PELVIS: Intraperitoneal space: See above. Bones/joints: Degenerative changes of the spine. No acute fracture. No dislocation. Soft tissues: Unremarkable. Vasculature: Atherosclerotic changes of the aorta. No abdominal aortic aneurysm. Lymph nodes: Unremarkable. No enlarged lymph nodes. IMPRESSION: 1. No acute diverticulitis. No small bowel obstruction. No free air. 2. Obstructing 6 mm left UVJ stone. No hydronephrosis of the left kidney. 3. Moderate fecal retention, correlate for constipation. 4. Nonobstructing 7 mm right lower pole renal stones.
[2025-02-07] MEDS: LACTATED RINGERS 500 ML IV ONE (04:57)
[2025-02-07] MEDS: POTASSIUM CHLORIDE ER 20 MEQ TAB.ER PO SCH (08:15)
[2025-02-07] MEDS: MAGNESIUM OXIDE 400 MG TAB PO SCH (08:16)
[2025-02-07] MEDS: PANTOPRAZOLE 40 MG TABLET PO SCH (08:16)
--- NOTE | 2025-02-07 12:38 | P.GSCN ---
History of Present Illness Consult date: 02/07/25 History of present illness: Pleasant 74-year-old female admitted to the hospital because she was feeling poorly and weak. She is on chemotherapy for her lung cancer. She recently had her chemotherapy and then gets an injection to elevate her white blood cell count after the chemotherapy. She presents to the emergency room and has a markedly elevated white count. Her urinalysis shows a few white cells but does not look grossly infected. She is not have any lower urinary tract symptoms. She had a CT scan identifying left renal as well as a nonobstructing left ureterovesical stone. The question is whether the stones in her urine are contributing to the elevated white count. The patient is interviewed at the bedside. She is comfortable. She is complaining of no pain. Vital signs are stable. She does not look sick. She has no history of kidney stones. Review of Systems All systems: negative - Constitutional Denies fever, Denies weight loss - EENT Eyes: denies blurred vision Ears, nose, mouth and throat: Denies dysphagia - Cardiovascular Denies chest pain, Denies shortness of breath - Respiratory Denies cough, Denies 7 - Gastrointestinal Reports as per HPI - Genitourinary Genitourinary: Denies dysuria, Denies hematuria - Integumentary Denies rash, Denies unusual bruising - Neurological Denies headaches, Denies syncope - Hematologic/Lymphatic Denies easy bleeding, Denies easy bruising Past Medical History Past Medical History: Atrial Fibrillation, Cancer, Eye Disorder, GERD/Reflux, Hypertension, Pneumonia Additional Past Medical History / Comment(s): hx migraines, ABD PAIN, HEMORRHOIDS, optic nerve damage tatiana eyes-impaired vision, pleural effusion & pericardial effusion May 2024, lung ca diagnosed Aug 2024- 5 rounds of chemo so far, one radiation tx History of Any Multi-Drug Resistant Organisms: None Reported Past Surgical History: Breast Surgery Additional Past Surgical History / Comment(s): left breast lumpectomy x 2 "precancerous", colonoscopy, EGD, bronchoscopy, thoracoscopy; right subclavian port Past Anesthesia/Blood Transfusion Reactions: No Reported Reaction, Family History of Problems w/ Anesthesia Additional Past Anesthesia/Blood Transfusion Reaction / Comm: daughter has hard time coming out of anesthesia Past Psychological History: Depression Smoking Status: Former smoker Past Alcohol Use History: Rare Additional Past Alcohol Use History / Comment(s): quit smoking 2023; smoked on and off since age 23 Past Drug Use History: None Reported - Past Family History Brother(s) Family Medical History: Pulmonary Embolus Mother Family Medical History: Memory Impairment Additional Family Medical History / Comment(s): from Alzheimer's. Father Additional Family Medical History / Comment(s): from unknown cause, possibly his heart. Medications and Allergies Home Medications Medication Instructions Recorded Confirmed Type Ondansetron [Zofran] 4 - 8 mg PO Q4H PRN 11/29/24 02/07/25 History Acetaminophen Tab [Tylenol] 650 mg PO Q6HR PRN tab 12/09/24 02/07/25 Rx Loperamide [Imodium] 2 mg PO Q2HR PRN cap 12/09/24 02/07/25 Rx Magnesium Oxide [Mag-Ox] 400 mg PO DAILY #7 tab 12/09/24 02/07/25 Rx Prochlorperazine [Compazine] 10 mg PO Q6H PRN #30 tab 12/09/24 02/07/25 Rx Omeprazole Magnesium [PriLOSEC OTC] 20 mg PO DAILY 12/30/24 02/07/25 History traMADol HCL 50 mg PO Q6H PRN 30 Days #90 tab 01/15/25 02/07/25 Rx Potassium Chloride ER [K-Dur 20] 20 meq PO DAILY 01/20/25 02/07/25 History HYDROcodone/APAP 10-325MG [[place] 1 tab PO TID PRN 02/07/25 02/07/25 History 10-325] Multivit-Min/Iron/Folic/Lutein 1 tab PO DAILY 02/07/25 02/07/25 History [Centrum Silver Women Tablet] Allergies Allergy/AdvReac Type Severity Reaction Status Date / Time No Known Allergies Allergy Verified 02/07/25 11:16 Surgical - Exam Vital Signs Temp Pulse Resp BP Pulse Ox 97.5 F L 59 L 18 113/73 93 L 02/06/25 20:35 02/06/25 20:35 02/06/25 20:35 02/06/25 20:35 02/06/25 20:35 Results - Labs 02/07/25 00:37 02/06/25 21:31 Abnormal Lab Results - Last 24 Hours (Table) 06/02/06/25 02/06/25 Range/Units 21:31 21:31 21:38 WBC 63.30 H* (4.50-10.00) 10*3/uL RBC 2.84 L (4.10-5.20) 10*6/uL Hgb 9.3 L (12.0-15.0) g/dL Hct 27.7 L (37.2-46.3) % MCV 97.5 H (80.0-97.0) fL MCH 32.7 H (27.0-32.0) pg Immature Gran # 6.98 H (0.00-0.04) 10*3/uL Neutrophils # (Manual) 60.77 H (1.3-7.7) k/uL Metamyelocytes # (Man) 0.63 H (0) k/uL Sodium 134 L (137-145) mmol/L BUN 25 H (7-17) mg/dL Glucose 116 H (74-99) mg/dL POC Glucose (mg/dL) 130 H (70-110) mg/dL Alkaline Phosphatase 166 H (38-126) U/L Total Protein 5.9 L (6.3-8.2) g/dL Ur Leukocyte Esterase (Negative) Urine WBC (0-5) /hpf Amorphous Sediment (None) /hpf Urine Bacteria (None) /hpf Hyaline Casts (0-2) /lpf Urine Mucus (None) /hpf 02/07/25 02/07/25 Range/Units 00:37 23:55 WBC 57.99 H* (4.50-10.00) 10*3/uL RBC 2.62 L (4.10-5.20) 10*6/uL Hgb 8.6 L (12.0-15.0) g/dL Hct 25.5 L (37.2-46.3) % MCV 97.3 H (80.0-97.0) fL MCH 32.8 H (27.0-32.0) pg Immature Gran # (0.00-0.04) 10*3/uL Neutrophils # (Manual) (1.3-7.7) k/uL Metamyelocytes # (Man) (0) k/uL Sodium (137-145) mmol/L BUN (7-17) mg/dL Glucose (74-99) mg/dL POC Glucose (mg/dL) (70-110) mg/dL Alkaline Phosphatase (38-126) U/L Total Protein (6.3-8.2) g/dL Ur Leukocyte Esterase Moderate H (Negative) Urine WBC 14 H (0-5) /hpf Amorphous Sediment Rare H (None) /hpf Urine Bacteria Occasional H (None) /hpf Hyaline Casts 49 H (0-2) /lpf Urine Mucus Occasional H (None) /hpf Diabetes panel 02/06/25 Range/Units 21:31 Sodium 134 L (137-145) mmol/L Potassium 3.8 (3.5-5.1) mmol/L Chloride 99 (98-107) mmol/L Carbon Dioxide 26 (22-30) mmol/L BUN 25 H (7-17) mg/dL Creatinine 0.89 (0.52-1.04) mg/dL Glucose 116 H (74-99) mg/dL Calcium 9.4 (8.4-10.2) mg/dL AST 35 (14-36) U/L ALT 19 (4-34) U/L Alkaline Phosphatase 166 H (38-126) U/L Total Protein 5.9 L (6.3-8.2) g/dL Albumin 3.8 (3.5-5.0) g/dL Calcium panel 02/06/25 Range/Units 21:31 Calcium 9.4 (8.4-10.2) mg/dL Albumin 3.8 (3.5-5.0) g/dL Pituitary panel 02/06/25 Range/Units 21:31 Sodium 134 L (137-145) mmol/L Potassium 3.8 (3.5-5.1) mmol/L Chloride 99 (98-107) mmol/L Carbon Dioxide 26 (22-30) mmol/L BUN 25 H (7-17) mg/dL Creatinine 0.89 (0.52-1.04) mg/dL Glucose 116 H (74-99) mg/dL Calcium 9.4 (8.4-10.2) mg/dL Adrenal panel 02/06/25 Range/Units 21:31 Sodium 134 L (137-145) mmol/L Potassium 3.8 (3.5-5.1) mmol/L Chloride 99 (98-107) mmol/L Carbon Dioxide 26 (22-30) mmol/L BUN 25 H (7-17) mg/dL Creatinine 0.89 (0.52-1.04) mg/dL Glucose 116 H (74-99) mg/dL Calcium 9.4 (8.4-10.2) mg/dL Total Bilirubin 0.9 (0.2-1.3) mg/dL AST 35 (14-36) U/L ALT 19 (4-34) U/L Alkaline Phosphatase 166 H (38-126) U/L Total Protein 5.9 L (6.3-8.2) g/dL Albumin 3.8 (3.5-5.0) g/dL - Imaging CT scan - abdomen: report reviewed, image reviewed CT scan - pelvis: report reviewed, image reviewed Assessment and Plan Assessment: Impression: Lung cancer on chemotherapy. Leukocytosis probably related to the medication she gets after her chemotherapy to raise her white cell count. Left ureteral calculus, asymptomatic and nonobstructing. Recommendations. At this juncture I do not think she has an infected urinary system. She is asymptomatic from the ureteral stone and there is no hydronephrosis. I do not think her urine looks infected. Therefore I do not think she has pyelonephrosis. Since she is asymptomatic and afebrile with stable vital signs I do not think a stent at this point in time is necessary. I will follow this patient with you. Time with Patient: Greater than 30
--- NOTE | 2025-02-07 17:22 | P.CONS ---
History of Present Illness - Reason for Consult Consult date: 02/07/25 Small cell carcinoma, leukocytosis Requesting physician: Raymundo River - Chief Complaint Feeling ill - History of Present Illness Ms. 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 Moser, last received C5D1 on 02/02/25 with neulasta biosimilar, Udenyca, given on 02/05/25 who is here for not feeling well since her chemo. Work up with CT AP with 6mm obstructing left UVJ stone without hydronephrosis and moderate fecal content in bowels. Labs overall normal other than WBC 63, 57 on repeat couple hours later, and Hgb 9.3 => 8.6. Onc History: Follows with Dr. Moser Ms Woodard is a pleasant white female, initially seen in consult at [facility] on 06/03/24. She has multiple medical problems, overall reasonably well-controlled at baseline. She had come into the emergency room with low-grade fever, as well as cough, and shortness of breath which were progressive over the past few weeks. She had been having night sweats and some unintentional weight loss of about 60 pounds over the past 2 years. He had noticed an improvement in his symptoms been placed on prednisone for vision loss earlier in the year. The patient is on follow-up with pulmonary medicine for a lung nodule, with low-dose lung CT in 03/05 showing a 1.1 cm right lower lobe spiculated mass. PET scan in 04/05 however showed the mass to be smaller at 9 mm with low level FDG avidity, more consistent with inflammation. Chest x-ray the hospital showed a moderate left-sided pleural effusion. CT of the chest confirmed moderate to large left-sided pleural effusion, as well as a significant pericardial effusion. The right lower lobe nodule was again seen, stable. She was also noted to have hypocalcemia, as well as hyponatremia and hypokalemia. The patient underwent pericardial window, as well as paracentesis on 06/04/24. Pathology was negative for malignancy, showing inflammatory changes. Labs done in patient showed high AMNA of 1:1240 The patient improved after fluid drainage, and was able to discharged. She has not had recurrence of those symptoms since, and was seen in the office for her first visit on 06/24/24. She denied any known diagnosis personally of an autoimmune disease, but stated that her daughter has known rheumatoid arthritis the patient was therefore referred to rheumatology. Apparently workup with them did not show any definite evidence of autoimmune disease. She continued follow-up with pulmonary medicine. She developed right-sided lower chest wall pain, starting on mid 09/06. She had repeat imaging with CT scan, PET scan and then repeat bronchoscopy the end of 09/06. Repeat imaging showed significant growth in the right lower lobe nodule, into the 3 cm range. PET scan revealed increased uptake in this area, as well as uptake in a 5 cm plus subcarinal mass, and in a right hilar lymph node. The patient's bronchoscopy with biopsy from the right lower lobe mass showed poorly differentiated neuroendocrine carcinoma, predominantly large cell type. Biopsy from station 7 lymph node was also positive for poorly differentiated carcinoma. PET scan reveals some subtle uptake in the right anterolateral lateral chest wall area just above the diaphragm, without any associated anatomical abnormality or fluid seen. There is no evidence of recurrent fluid on the left side, or in the pericardium. As the right chest wall appeared to be the only area of involvement, outside the primary site and mediastinum, a biopsy was recommended. was suitable target was not seen by IR. The patient was then referred to cardiology thoracic surgery, and had the procedure on 10/08/24. Thoracoscopy showed obvious involvement of the pleura with metastases, with biopsy confirming the same pathology that is, large cell neuroendocrine carcinoma. The patient biomarker testing showed PD1 less than 1%, with no other actionable mutation. She was PTEN positive, with a targeted agent available, but not approved for lung cancer She was therefore referred for palliative radiation to the chest wall, completing that in week 3 of 11/04. She was then started on systemic therapy with EVIDENCE TECHNICIAN-16/carboplatin/keytruda on 11/03/24, is status post 3 cycle. G-CSF was added with cycle 2 onwards She was admitted to the hospital after cycle 2, with dehydration, multiple electrolyte abnormalities, weakness as well as possible pneumonia and colitis. She also had significant cytopenias related to chemotherapy. The patient improved with aggressive supportive care and was discharged on 12/09/24. Chemotherapy dose was reduced by 10% for cycle 3. Last visit: 12/31/24: She denied any fever/chills/ Vomiting. Tolerance of cycle 3 has been much better, with significant decrease in nausea compared to before. The patient has had improvement in her appetite and energy level, although the latter is still diminished. Chest wall pain has significantly improved, and she is now using Temodal intermittently. She is scheduled for pain block on 5. She denied any palpitations, or pain elsewhere. No obvious lymph node enlargement. She denied any change in bowel habits or difficulty in swallowing. Review of systems otherwise as per HPI and negative out of 10. Plan: The patient has tolerated cycle 3 much better, as described in the HPI. She has no signs or symptoms concerning for progression at this time. Right lower chest wall pain has also considerably improved. Check labs. Continue current regimen. Check restaging scans after cycle 4. CT scan of the hospital had mentioned the possibility of new, small, hypodensities in the liver. These could be artifactual or represent metastasis. However it was discussed with the patient that metastasis may have developed between her last scan in 10/07, and initiation of chemotherapy about 5-6 weeks later. Therefore repeat scans after 2 additional cycles will give a more definitive answer as to the efficacy of her treatment. 02/02/25: C5D1 given carbo/etoposide/keytruda 02/05/25: G-CSF (neulasta biosimilar, Udenyca) given Past Medical History Past Medical History: Atrial Fibrillation, Cancer, Eye Disorder, GERD/Reflux, Hypertension, Pneumonia Additional Past Medical History / Comment(s): hx migraines, ABD PAIN, HEMORRHOIDS, optic nerve damage tatiaan eyes-impaired vision, pleural effusion & pericardial effusion May 2024, lung ca diagnosed Aug 2024- 5 rounds of chemo so far, one radiation tx History of Any Multi-Drug Resistant Organisms: None Reported Past Surgical History: Breast Surgery Additional Past Surgical History / Comment(s): left breast lumpectomy x 2 "precancerous", colonoscopy, EGD, bronchoscopy, thoracoscopy; right subclavian port Past Anesthesia/Blood Transfusion Reactions: No Reported Reaction, Family History of Problems w/ Anesthesia Additional Past Anesthesia/Blood Transfusion Reaction / Comm: daughter has hard time coming out of anesthesia Past Psychological History: Depression Smoking Status: Former smoker Past Alcohol Use History: Rare Additional Past Alcohol Use History / Comment(s): quit smoking 2023; smoked on and off since age 23 Past Drug Use History: None Reported - Past Family History Brother(s) Family Medical History: Pulmonary Embolus Mother Family Medical History: Memory Impairment Additional Family Medical History / Comment(s): from Alzheimer's. Father Additional Family Medical History / Comment(s): from unknown cause, possibly his heart. Medications and Allergies Home Medications Medication Instructions Recorded Confirmed Type Ondansetron [Zofran] 4 - 8 mg PO Q4H PRN 11/29/24 02/07/25 History Acetaminophen Tab [Tylenol] 650 mg PO Q6HR PRN tab 12/09/24 02/07/25 Rx Loperamide [Imodium] 2 mg PO Q2HR PRN cap 12/09/24 02/07/25 Rx Magnesium Oxide [Mag-Ox] 400 mg PO DAILY #7 tab 12/09/24 02/07/25 Rx Prochlorperazine [Compazine] 10 mg PO Q6H PRN #30 tab 12/09/24 02/07/25 Rx Omeprazole Magnesium [PriLOSEC OTC] 20 mg PO DAILY 12/30/24 02/07/25 History traMADol HCL 50 mg PO Q6H PRN 30 Days #90 tab 01/15/25 02/07/25 Rx Potassium Chloride ER [K-Dur 20] 20 meq PO DAILY 01/20/25 02/07/25 History HYDROcodone/APAP 10-325MG [[place] 1 tab PO TID PRN 02/07/25 02/07/25 History 10-325] Multivit-Min/Iron/Folic/Lutein 1 tab PO DAILY 02/07/25 02/07/25 History [Centrum Silver Women Tablet] Allergies Allergy/AdvReac Type Severity Reaction Status Date / Time No Known Allergies Allergy Verified 02/07/25 11:16 Physical Exam Vitals: Vital Signs Temp Pulse Pulse Resp BP BP Pulse Ox 02/07/25 12:31 98.5 F 84 16 111/71 98 02/07/25 07:43 98.4 F 100 16 94/58 98 02/07/25 05:23 111 H 16 02/07/25 03:16 98 F 104 H 16 109/69 100 02/07/25 02:00 98.6 F 111 H 16 132/81 93 L 02/07/25 01:39 102 H 16 137/77 100 02/07/25 01:25 97.7 F 103 H 18 139/73 100 02/06/25 23:27 99 16 120/74 99 02/06/25 21:52 97.8 F 117 H 18 104/65 100 02/06/25 20:35 97.5 F L 59 L 18 113/73 93 L Intake and Output 02/06/25 02/07/25 02/07/25 22:59 06:59 14:59 Intake Total 240 480 Balance 240 480 Intake: Oral 240 480 Other: Voiding Method Toilet Toilet # Voids 1 # Bowel Movements 0 # Emeses 0 Weight 49.895 kg 49.895 kg No acute distress. No respiratory distress. alert and oriented x 3. no jaundice or icterus. Results CBC & Chem 7: 02/07/25 00:37 02/06/25 21:31 Labs: Abnormal Lab Results - Last 24 Hours (Table) 02/06/25 02/06/25 02/06/25 Range/Units 21:31 21:31 21:38 WBC 63.30 H* (4.50-10.00) 10*3/uL RBC 2.84 L (4.10-5.20) 10*6/uL Hgb 9.3 L (12.0-15.0) g/dL Hct 27.7 L (37.2-46.3) % MCV 97.5 H (80.0-97.0) fL MCH 32.7 H (27.0-32.0) pg Immature Gran # 6.98 H (0.00-0.04) 10*3/uL Neutrophils # (Manual) 60.77 H (1.3-7.7) k/uL Metamyelocytes # (Man) 0.63 H (0) k/uL Sodium 134 L (137-145) mmol/L BUN 25 H (7-17) mg/dL Glucose 116 H (74-99) mg/dL POC Glucose (mg/dL) 130 H (70-110) mg/dL Alkaline Phosphatase 166 H (38-126) U/L Total Protein 5.9 L (6.3-8.2) g/dL Ur Leukocyte Esterase (Negative) Urine WBC (0-5) /hpf Amorphous Sediment (None) /hpf Urine Bacteria (None) /hpf Hyaline Casts (0-2) /lpf Urine Mucus (None) /hpf 06/28/25 06/28/25 Range/Units 00:37 23:55 WBC 57.99 H* (4.50-10.00) 10*3/uL RBC 2.62 L (4.10-5.20) 10*6/uL Hgb 8.6 L (12.0-15.0) g/dL Hct 25.5 L (37.2-46.3) % MCV 97.3 H (80.0-97.0) fL MCH 32.8 H (27.0-32.0) pg Immature Gran # (0.00-0.04) 10*3/uL Neutrophils # (Manual) (1.3-7.7) k/uL Metamyelocytes # (Man) (0) k/uL Sodium (137-145) mmol/L BUN (7-17) mg/dL Glucose (74-99) mg/dL POC Glucose (mg/dL) (70-110) mg/dL Alkaline Phosphatase (38-126) U/L Total Protein (6.3-8.2) g/dL Ur Leukocyte Esterase Moderate H (Negative) Urine WBC 14 H (0-5) /hpf Amorphous Sediment Rare H (None) /hpf Urine Bacteria Occasional H (None) /hpf Hyaline Casts 49 H (0-2) /lpf Urine Mucus Occasional H (None) /hpf Comments: PET images reviewed from 01/30/25 and compared to prior PET images over the past 4 months. On my review, she has improved uptake in primary lung nodule and hilar LAD, with vague and minimal uptake in liver lesions that have been present since first PET images reviewed and stable on CT portion or PET and various minimal activity noted on PET portion. Chest x-ray: report reviewed CT scan - abdomen: report reviewed CT scan - pelvis: report reviewed Assessment and Plan Assessment: 1. Leukocytosis due to G-CSF 2. Abdominal pain/dysuria due to renal stone and UTI 3. anemia due to chemotherapy 4. small cell lung cancer on chemotherapy/immunotherapy Plan: Ms. Woodard is a very pleasant 74 yo female who follows with Dr. Moser for SCLC on chemo/immunotherapy with carbo/EVIDENCE TECHNICIAN/keytruda with G-CSF, s/p C5 given on 02/02/25 (G-CSF given on 02/05/25) who is here for feeling ill, work up with obstructing kidney stone, constipation and severe leukocytosis. - Leukocytosis likely due to G-CSF, monitor for now - UTI and kidney stone, urology on board, antibiotics - right sided pain, has left kidney stone; unclear etiology of pain other than possible constipation? may consider MRI liver - Anemia due to chemotherapy, monitor - Bowel regimen - Recent restaging PET from 01/30/25 images reviewed and compared to prior PET and on my review, she has overall improvement. Liver lesions mentioned have been present and stable on CT portion of prior PET scans including PET from 01/30/25 and doubt concerning for progression at this point. discussed PET results with pt/family - Monitor for chemo toxicity, follow up with Dr Moser scheduled 02/11/25 to discuss further chemotherapy rec's discussed with pt and her family (daughter and ) and they were agreeable. all questions answered.
[2025-02-07] MEDS: VANCOMYCIN 1,000 MG in SODIUM CHLORIDE 0.9% 250 ML IVPB SCH (21:52)
[2025-02-08 06:01] LABS: African American GFR (CKD) >90 (>60 ml/min/1.73 sqM); Anion Gap 6 mmol/L; Blood Urea Nitrogen 13 mg/dL (7-17); Calcium 8.6 mg/dL (8.4-10.2); Carbon Dioxide 24 mmol/L (22-30); Chloride 104 mmol/L (98-107); Glucose 82 mg/dL (74-99); Non-African American GFR(CKD) >90 (>60 ml/min/1.73 sqM); Potassium 3.5 mmol/L (3.5-5.1); Sodium 134 mmol/L (137-145)
[2025-02-08 11:59] LABS: HCT 23.1 % (37.2-46.3); HGB 7.3 g/dL (12.0-15.0); MCH 32.9 pg (27.0-32.0); MCHC 31.6 g/dL (32.0-37.0); Platelet Count 205 10*3/uL (140-440); RBC 2.22 10*6/uL (4.10-5.20); RDW 18.6 % (11.5-14.5); WBC 21.72 10*3/uL (4.50-10.00)
[2025-02-08 12:02] LABS: MCV 104.1 fL (80.0-97.0)
[2025-02-08] MEDS: VANCOMYCIN 1,000 MG in SODIUM CHLORIDE 0.9% 250 ML IVPB SCH (12:04)
--- NOTE | 2025-02-08 12:08 | P.PN ---
Subjective Progress Note Date: 02/08/25 The patient is in the hospital not feeling well. She has been on chemotherapy for her lung cancer. She was found to have perhaps a urine infection. She has a stone in the distal left ureter. Her white count was elevated however she just received some medication to elevate her white count after her recent chemotherapy. She is on antibiotics. She is afebrile. Her white count which was 56,000 yesterday is dropped to 21,000. She is afebrile and feeling well. She is not having any pain. At this juncture I would just continue with antibiotics pending the urine culture. As long as she continues to improve I do not think urologic intervention is required at this point in time. We will follow Objective - Vital Signs Vital signs: Vital Signs Temp 98.5 F 02/08/25 08:00 Pulse 94 02/08/25 08:00 Resp 16 02/08/25 08:00 BP 127/82 02/08/25 08:00 Pulse Ox 95 02/08/25 08:00 FiO2 Intake & Output 02/07/25 02/08/25 02/08/25 18:59 06:59 18:59 Intake Total 2360 240 Balance 2360 240 Intake: Oral 2360 240 Other: Voiding Method Toilet Toilet Toilet # Voids 5 1 # Bowel Movements 1 1 - Labs CBC & Chem 7: 02/08/25 05:15 02/08/25 05:15 Labs: Abnormal Lab Results - Last 24 Hours (Table) 02/08/25 02/08/25 Range/Units 05:15 05:15 WBC 21.72 H (4.50-10.00) 10*3/uL RBC 2.22 L (4.10-5.20) 10*6/uL Hgb 7.3 L (12.0-15.0) g/dL Hct 23.1 L (37.2-46.3) % MCV 104.1 H D (80.0-97.0) fL MCH 32.9 H (27.0-32.0) pg MCHC 31.6 L (32.0-37.0) g/dL RDW 18.6 H (11.5-14.5) % Immature Gran # 2.53 H (0.00-0.04) 10*3/uL Sodium 134 L (137-145) mmol/L Creatinine 0.42 L (0.52-1.04) mg/dL Microbiology - Last 24 Hours (Table) 02/07/25 23:55 Urine Culture - Preliminary Urine,Voided Gram Neg Bacilli 02/07/25 00:14 Blood Culture - Preliminary Blood
[2025-02-08 12:55] LABS: Lymphocytes # (M) 0.65 k/uL (1.0-4.8); Monocytes # (M) 0.22 k/uL (0-1.0); Neutrophils # (M) 20.85 k/uL (1.3-7.7); Neutrophils % (M) 96 %; Total Cells Counted 100
[2025-02-08 12:57] LABS: RBC Morphology Normal
--- NOTE | 2025-02-08 13:40 | P.PN ---
Subjective Progress Note Date: 02/08/25 No new complaints. Energy levels improving. Hgb downtrending, PLTs downtrending. Gen: In NAD, non-toxic HEENT: normocephalic, atraumatic, hearing acuity is intant, mucous membranes moist CVS: perfusing all extremities well, no pitting edema, Respiratory: symmetric chest expansion, no accessory muscle use, GI: soft, NTTP, ND, : no suprapubic tenderness, no CVA tenderness MSK/Derm: no rashes, cyanosis Neuro: CN II-XII intact, no motor weakness, Psych: cooperative, euthymic mood, judgment and insight is intact Assessment/plan: 34-year-old female with A-fib, lung cancer coming in for generalized weakness. ED doctor accepted the patient to rule out underlying infectious process due to elevated white count and abdominal pain Generalized weakness Complicated UTI Nephrolithaisis -Cancel vancomycin, start ceftriaxone -UCx growing GNB -Urology following -monitor Hgb, PLTs for transfusion needs Intractable right rib pain Management by as needed Dilaudid 0.5 mg Q3 -4 hours Renal function unremarkable sodium 134 potassium 3.3 BUN 24 creatinine 0.8 urine Urine analysis positive for moderate leukocyte esterase and white BCs Respiratory virus panel negative for COVID influenza and RSV Full code DVT prophylaxis Lovenox 40 mg subcu daily Follow-up CT of the abdomen pelvis results Objective - Vital Signs Vital signs: Vital Signs Temp 98.6 F 02/08/25 12:29 Pulse 93 02/08/25 12:29 Resp 16 02/08/25 12:29 BP 111/69 02/08/25 12:29 Pulse Ox 94 L 02/08/25 12:29 FiO2 Intake & Output 02/07/25 02/08/25 02/08/25 18:59 06:59 18:59 Intake Total 2360 240 Balance 2360 240 Intake: Oral 2360 240 Other: Voiding Method Toilet Toilet Toilet # Voids 5 1 # Bowel Movements 1 1 - Labs CBC & Chem 7: 02/08/25 05:15 02/08/25 05:15 Labs: Abnormal Lab Results - Last 24 Hours (Table) 02/08/25 02/08/25 Range/Units 05:15 05:15 WBC 21.72 H (4.50-10.00) 10*3/uL RBC 2.22 L (4.10-5.20) 10*6/uL Hgb 7.3 L (12.0-15.0) g/dL Hct 23.1 L (37.2-46.3) % MCV 104.1 H D (80.0-97.0) fL MCH 32.9 H (27.0-32.0) pg MCHC 31.6 L (32.0-37.0) g/dL RDW 18.6 H (11.5-14.5) % Immature Gran # 2.53 H (0.00-0.04) 10*3/uL Neutrophils # (Manual) 20.85 H (1.3-7.7) k/uL Lymphocytes # (Manual) 0.65 L (1.0-4.8) k/uL Sodium 134 L (137-145) mmol/L Creatinine 0.42 L (0.52-1.04) mg/dL Microbiology - Last 24 Hours (Table) 02/07/25 23:55 Urine Culture - Preliminary Urine,Voided Gram Neg Bacilli 02/07/25 00:14 Blood Culture - Preliminary Blood
[2025-02-09] MEDS ORDERED: VANCOMYCIN TROUGH DUE 1 EACH MISC MISCELLANE ONE (10:00)
[2025-02-09 10:20] LABS: HCT 24.1 % (37.2-46.3); HGB 7.6 g/dL (12.0-15.0); MCH 32.2 pg (27.0-32.0); MCHC 31.5 g/dL (32.0-37.0); MCV 102.1 FL (80.0-97.0); NRBC Per 100 WBC 0 X 10*3/uL (0.00-0.01); Platelet Count 164 X 10*3/uL (140-440); RBC 2.36 X 10*6/uL (4.10-5.20); RDW 18.3 % (11.5-14.5); WBC 5.99 X 10*3/uL (4.50-10.00)
[2025-02-09 10:37] LABS: Anion Gap 11.80 mmol/L (4.00-12.00); BUN/Creat Ratio 17.20 Ratio (12.00-20.00); Blood Urea Nitrogen 8.6 mg/dL (9.0-27.0); Calcium 8.3 mg/dL (8.7-10.3); Carbon Dioxide 22.2 mmol/L (21.6-31.8); Chloride 102 mmol/L (96-109); Glucose 101 mg/dL (70-110); Magnesium 1.3 mg/dL (1.5-2.4); Potassium 3.7 mmol/L (3.5-5.5); Sodium 136 mmol/L (135-145)
[2025-02-09 10:54] LABS: Basophils # (M) 0.06 X 10*3/uL (0.00-0.10); Eosinophils # (M) 0 X 10*3/uL (0.04-0.35); Lymphocytes # (M) 1.38 X 10*3/uL (0.90-5.00); Monocytes # (M) 0.18 X 10*3/uL (0.20-1.00); Neutrophils # (M) 4.37 X 10*3/uL (1.80-7.70); Neutrophils % (M) 73 %
--- NOTE | 2025-02-09 13:22 | P.PN ---
Subjective Progress Note Date: 02/09/25 No new complaints. Energy levels improving. Hgb stable Gen: In NAD, non-toxic HEENT: normocephalic, atraumatic, hearing acuity is intant, mucous membranes moist CVS: perfusing all extremities well, no pitting edema, Respiratory: symmetric chest expansion, no accessory muscle use, GI: soft, NTTP, ND, : no suprapubic tenderness, no CVA tenderness MSK/Derm: no rashes, cyanosis Neuro: CN II-XII intact, no motor weakness, Psych: cooperative, euthymic mood, judgment and insight is intact Assessment/plan: 34-year-old female with A-fib, lung cancer coming in for generalized weakness. ED doctor accepted the patient to rule out underlying infectious process due to elevated white count and abdominal pain Generalized weakness Complicated UTI Nephrolithaisis -Cancel vancomycin, start ceftriaxone -UCx growing GNB -Urology following -monitor Hgb, PLTs for transfusion needs Intractable right rib pain Management by as needed Dilaudid 0.5 mg Q3 -4 hours Renal function unremarkable sodium 134 potassium 3.3 BUN 24 creatinine 0.8 urine Urine analysis positive for moderate leukocyte esterase and white BCs Respiratory virus panel negative for COVID influenza and RSV Full code DVT prophylaxis Lovenox 40 mg subcu daily Follow-up CT of the abdomen pelvis results Objective - Vital Signs Vital signs: Vital Signs Temp 99.2 F 02/09/25 12:46 Pulse 100 02/09/25 12:46 Resp 17 02/09/25 12:46 BP 131/83 02/09/25 12:46 Pulse Ox 99 02/09/25 12:46 FiO2 Intake & Output 02/08/25 02/09/25 02/09/25 18:59 06:59 18:59 Intake Total 1979 1555 Balance 1979 1555 Intake: Oral 1979 Other 1555 Other: Voiding Method Toilet Toilet # Voids 5 1 # Bowel Movements 1 1 - Labs CBC & Chem 7: 02/09/25 05:40 02/09/25 05:43 Labs: Abnormal Lab Results - Last 24 Hours (Table) 02/09/25 02/09/25 Range/Units 05:40 05:43 RBC 2.36 L (4.10-5.20) X 10*6/uL Hgb 7.6 L (12.0-15.0) g/dL Hct 24.1 L (37.2-46.3) % MCV 102.1 H (80.0-97.0) FL MCH 32.2 H (27.0-32.0) pg MCHC 31.5 L (32.0-37.0) g/dL RDW 18.3 H (11.5-14.5) % Monocytes # (Manual) 0.18 L (0.20-1.00) X 10*3/uL Eosinophils # (Manual) 0 L (0.04-0.35) X 10*3/uL BUN 8.6 L (9.0-27.0) mg/dL Creatinine 0.5 L (0.6-1.5) mg/dL Calcium 8.3 L (8.7-10.3) mg/dL Magnesium 1.3 L (1.5-2.4) mg/dL Microbiology - Last 24 Hours (Table) 02/07/25 00:14 Blood Culture - Preliminary Blood
--- NOTE | 2025-02-09 15:57 | P.PN ---
Subjective No acute overnight event, white count is down to 5. She remains afebrile and asymptomatic from her stone. Urine culture is growing VRE Objective - Vital Signs Vital signs: Vital Signs Temp 99.2 F 02/09/25 12:46 Pulse 100 02/09/25 12:46 Resp 17 02/09/25 12:46 BP 131/83 02/09/25 12:46 Pulse Ox 99 02/09/25 12:46 FiO2 Intake & Output 02/08/25 02/09/25 02/09/25 18:59 06:59 18:59 Intake Total 1979 1554 Balance 1979 1554 Intake: Oral 1979 Other 1554 Other: Voiding Method Toilet Toilet # Voids 5 1 # Bowel Movements 1 1 - Constitutional General appearance: Present: no acute distress - Labs CBC & Chem 7: 02/09/25 05:40 02/09/25 05:43 Labs: Abnormal Lab Results - Last 24 Hours (Table) 02/09/25 02/09/25 Range/Units 05:40 05:43 RBC 2.36 L (4.10-5.20) X 10*6/uL Hgb 7.6 L (12.0-15.0) g/dL Hct 24.1 L (37.2-46.3) % MCV 102.1 H (80.0-97.0) FL MCH 32.2 H (27.0-32.0) pg MCHC 31.5 L (32.0-37.0) g/dL RDW 18.3 H (11.5-14.5) % Monocytes # (Manual) 0.18 L (0.20-1.00) X 10*3/uL Eosinophils # (Manual) 0 L (0.04-0.35) X 10*3/uL BUN 8.6 L (9.0-27.0) mg/dL Creatinine 0.5 L (0.6-1.5) mg/dL Calcium 8.3 L (8.7-10.3) mg/dL Magnesium 1.3 L (1.5-2.4) mg/dL Microbiology - Last 24 Hours (Table) 02/07/25 23:55 Urine Culture - Final Urine,Voided Escherichia coli Enterococcus faecalis VRE 02/07/25 00:14 Blood Culture - Preliminary Blood Assessment and Plan Assessment: 74-year-old female on chemotherapy with 6 mm left-sided distal stone, she is completely asymptomatic from her stone, urine culture is growing VRE. White count is back to normal range she remains hemodynamically stable. No acute surgical intervention given the lack of symptoms. at this time from urology standpoint she can be discharged and follow-up with Dr. Toro as an outpatient in 1 week
[2025-02-09] MEDS: AMPICILLIN 1,000 MG in SODIUM CHLORIDE 0.9% 50 ML IVPB SCH (17:05)
[2025-02-10 08:39] LABS: Basophils # (A) 0.03 10*3/uL (0.00-0.10); Basophils % (A) 1.5 %; Eosinophils # (A) 0.01 10*3/uL (0.04-0.35); Eosinophils % (A) 0.5 %; HCT 21.0 % (37.2-46.3); Lymphocytes # (A) 0.47 10*3/uL (0.90-5.00); Lymphocytes % (A) 23.6 %; MCH 32.5 pg (27.0-32.0); MCHC 32.4 g/dL (32.0-37.0); MCV 100.5 fL (80.0-97.0); Monocytes # (A) 0.33 10*3/uL (0.20-1.00); Monocytes % (A) 16.6 %; Neutrophils # (A) 1.14 10*3/uL (1.80-7.70); Neutrophils % (A) 57.3 %; RBC 2.09 10*6/uL (4.10-5.20); RDW 17.7 % (11.5-14.5); WBC 1.99 10*3/uL (4.50-10.00)
[2025-02-10 08:44] LABS: HGB 6.8 g/dL (12.0-15.0)
--- NOTE | 2025-02-10 09:17 | P.PN ---
Subjective Pain is asymptomatic, denies any flank pain gross hematuria or dysuria. Objective - Vital Signs Vital signs: Vital Signs Temp 98.5 F 02/10/25 07:06 Pulse 101 H 02/10/25 07:06 Resp 17 02/10/25 07:06 BP 129/75 02/10/25 07:06 Pulse Ox 95 02/10/25 07:06 FiO2 Intake & Output 02/09/25 02/10/25 02/10/25 18:59 06:59 18:59 Intake Total 1660 Balance 1660 Intake: Intake, IV Titration 1660 Amount Ampicillin 1,000 mg In 50 Sodium Chloride 0.9% 50 ml @ 100 mls/hr IVPB Q4HR [facility] Rx#:[id number] Sodium Chloride 0.9% 1, 1560 000 ml @ 130 mls/hr IV . Q7H42M [facility] Rx#:[id number] cefTRIAXone 2 gm In 50 Sodium Chloride 0.9% 50 ml @ 100 mls/hr IVPB Q24H [facility] Rx#:[id number] Other: # Voids 3 - Constitutional General appearance: Present: no acute distress - Gastrointestinal General gastrointestinal: Present: soft. Absent: distended, tenderness - Labs CBC & Chem 7: 02/10/25 05:21 02/09/25 05:43 Labs: Abnormal Lab Results - Last 24 Hours (Table) 02/09/25 02/09/25 02/10/25 Range/Units 05:40 05:43 05:21 WBC 1.99 L (4.50-10.00) 10*3/uL RBC 2.36 L 2.09 L (4.10-5.20) X 10*6/uL Hgb 7.6 L 6.8 L* (12.0-15.0) g/dL Hct 24.1 L 21.0 L (37.2-46.3) % MCV 102.1 H 100.5 H (80.0-97.0) FL MCH 32.2 H 32.5 H (27.0-32.0) pg MCHC 31.5 L (32.0-37.0) g/dL RDW 18.3 H 17.7 H (11.5-14.5) % Monocytes # (Manual) 0.18 L (0.20-1.00) X 10*3/uL Eosinophils # (Manual) 0 L (0.04-0.35) X 10*3/uL BUN 8.6 L (9.0-27.0) mg/dL Creatinine 0.5 L (0.6-1.5) mg/dL Calcium 8.3 L (8.7-10.3) mg/dL Magnesium 1.3 L (1.5-2.4) mg/dL Microbiology - Last 24 Hours (Table) 02/07/25 00:14 Blood Culture - Preliminary Blood 02/07/25 23:55 Urine Culture - Final Urine,Voided Escherichia coli Enterococcus faecalis VRE Assessment and Plan Assessment: 74-year-old female on chemotherapy with 6 mm left-sided distal stone, she is com pletely asymptomatic from her stone, urine culture is growing VRE. . No acute surgical intervention given the lack of symptoms. at this time from urology standpoint she can be discharged and follow-up with Dr. Toro as an outpatient in 1 week
[2025-02-10 10:33] LABS: Platelet Count 90 10*3/uL (140-440)
[2025-02-10] MEDS: ACETAMINOPHEN TAB 325 MG TAB PO PRN (13:01)
--- NOTE | 2025-02-10 14:10 | P.PN ---
Subjective Progress Note Date: 02/10/25 Patient was seen and evaluated bedside today. No acute complaints. No events overnight. Denies any flank pain or hematuria, or bloody bowel movements. Objective - Vital Signs Vital signs: Vital Signs Temp 98.5 F 02/10/25 07:06 Pulse 101 H 02/10/25 07:06 Resp 17 02/10/25 07:06 BP 129/75 02/10/25 07:06 Pulse Ox 95 02/10/25 07:06 FiO2 Intake & Output 02/09/25 02/10/25 02/10/25 18:59 06:59 18:59 Intake Total 1660 Balance 1660 Intake: Intake, IV Titration 1660 Amount Ampicillin 1,000 mg In 50 Sodium Chloride 0.9% 50 ml @ 100 mls/hr IVPB Q4HR [facility] Rx#:[id number] Sodium Chloride 0.9% 1, 1560 000 ml @ 130 mls/hr IV . Q7H42M [facility] Rx#:[id number] cefTRIAXone 2 gm In 50 Sodium Chloride 0.9% 50 ml @ 100 mls/hr IVPB Q24H [facility] Rx#:[id number] Other: # Voids 3 - Exam Physical Exam: General: nontoxic, no distress, appears at stated age Cardiovascular: S1 S2 reg, no murmur, rubs, or gallops Lungs: CTA bilateral, no rhonchi, no rales, no accessory muscle use Abdominal: soft, non-tender to palpataion, no appreciable organomegaly Extremities: no gross muscle atrophy, no edema Psych: well appearing, appropriate affect - Labs CBC & Chem 7: 02/14/25 06:00 02/14/25 05:00 Labs: Abnormal Lab Results - Last 24 Hours (Table) 02/10/25 Range/Units 05:21 WBC 1.99 L (4.50-10.00) 10*3/uL RBC 2.09 L (4.10-5.20) 10*6/uL Hgb 6.8 L* (12.0-15.0) g/dL Hct 21.0 L (37.2-46.3) % MCV 100.5 H (80.0-97.0) fL MCH 32.5 H (27.0-32.0) pg RDW 17.7 H (11.5-14.5) % Plt Count 90 L D (140-440) 10*3/uL Neutrophils # 1.14 L (1.80-7.70) 10*3/uL Lymphocytes # 0.47 L (0.90-5.00) 10*3/uL Eosinophils # 0.01 L (0.04-0.35) 10*3/uL Microbiology - Last 24 Hours (Table) 02/07/25 00:14 Blood Culture - Preliminary Blood 02/07/25 23:55 Urine Culture - Final Urine,Voided Escherichia coli Enterococcus faecalis VRE Assessment and Plan Plan: #. UTI and nephrolithiasis with 6mm obstructing left UVJ stone without hydronephrosis and moderate fecal content in bowels urology on board, antibiotics by primary team #. Pancytopenia #. Anemia due to chemotherapy Hgb today < 7 at 6.8, type and screen and transfuse with 1 unit of PRBC - no signs of acute bleeding #. History of SCLC, on chemo/immunotherapy, last received C5D1 on 02/02/25 with neulasta biosimilar, Udenyca, given on 02/05/25 #. Leukocytosis likely due to G-CSF Monitor for now - Recent restaging PET from 01/30/25 images reviewed and compared to prior PET and on my review, she has overall improvement. Liver lesions mentioned have been present and stable on CT portion of prior PET scans including PET from 01/30/25 and doubt concerning for progression at this point. PET results have been discussed with patient and family. - Monitor for chemotoxicity, follow up with Dr. Moser scheduled 02/11/25 to discuss further chemotherapy recommendations. Add: Patient evaluated personally, with resident. Physical exam as above. 1 unit PRBC ordered for hemoglobin of 6.8. Patient has pancytopenia due to recent chemotherapy. Continue to monitor and transfuse to keep hemoglobin greater than 7, and platelets greater than 10. Management of UTI, and kidney stone Per urology. The patient's PET scan has been reviewed. There is note of possible, small, new lesions in the liver. However these were noted on previous CT scan, and were felt to reflect lesions that had developed in the interim between the initial PET scan, and the patient's initiation of treatment. Going forward the plan is to switch to immunotherapy alone. CT scan will be repeated in 2 to 3 months Management plan discussed in detail with resident
[2025-02-10 17:55] LABS: HCT 23.3 % (37.2-46.3); HGB 7.8 g/dL (12.0-15.0); MCH 32.1 pg (27.0-32.0); MCHC 33.5 g/dL (32.0-37.0); MCV 95.9 fL (80.0-97.0); RBC 2.43 10*6/uL (4.10-5.20); RDW 16.5 % (11.5-14.5); WBC 2.51 10*3/uL (4.50-10.00)
[2025-02-10 18:00] LABS: Platelet Count 86 10*3/uL (140-440)
[2025-02-10 18:59] LABS: Lymphocytes # (M) 0.78 k/uL (1.0-4.8); Monocytes # (M) 0.23 k/uL (0-1.0); Neutrophils # (M) 1.51 k/uL (1.3-7.7); Neutrophils % (M) 60 %; Total Cells Counted 100
[2025-02-10 19:00] LABS: RBC Morphology Normal
[2025-02-10] MEDS ORDERED: MIDAZOLAM 2 MG/2 ML VIAL ONE (19:10)
[2025-02-10] MEDS: LACTATED RINGERS 1,000 ML IV ONE ×3 (19:10)
[2025-02-10] MEDS ORDERED: PROPOFOL 10 MG/ML 20 ML VIAL IV ONE (19:10)
[2025-02-10] MEDS ORDERED: fentaNYL (PF) 50 MCG/ML 2 ML AMP ONE (19:10)
[2025-02-10] MEDS ORDERED: KETAMINE HCL IN 0.9 % NACL 50 MG/5 ML SYRINGE ONE (19:10)
--- NOTE | 2025-02-10 19:41 | P.OP ---
Date of Procedure: 02/10/25 Preoperative Diagnosis: Left ureteral stone Postoperative Diagnosis: Same Procedure(s) Performed: Cystoscopy and left stent insertion Implants: 6 Indonesian by 22 cm stents in the left ureter Anesthesia: MAC Surgeon: Josh Navarro Estimated Blood Loss (ml): 0 Pathology: none sent Condition: stable Disposition: PACU Indications for Procedure: This is a 74-year-old female with history of lung cancer currently on chemotherapy. Admitted to the hospital for VRE UTI and left ureteral stone. Patient was asymptomatic and hemodynamically stable. This afternoon she started having a fever of 100.4. Also experiencing lower abdominal pain. I discussed with her given the evidence of obstructing stone, UTI, and her leukopenia I do recommend proceeding with stent insertion at this time. Risk-benefit and rationale of surgery was discussed with her in detail. This is discussed with her the stent will allow the decompression of the collecting system to reduce the chance of her becoming septic from her UTI and obstructing stone. I did discuss she will require left-sided ureteroscopy with holmium laser and stent removal as an outpatient once she completes her chemo. Of note her stool sample was also positive for C. difficile. I discussed with her the abdominal pain could be secondary to that rather than the obstructing stone. She understood all the risk and agreed to proceed Description of Procedure: Patient brought the operating room, sedation was induced. She was prepped and draped in sterile fashion placed in dorsolithotomy position. Cystoscopy through the 22 Indonesian sheath was inserted per urethra, a brief cystoscopy was performed showed no abnormality within the bladder. The left ureter orifice was visualized and intubated with a sensor wire, the wire was advanced into the kidney under fluoroscopy. Next a ureteral stent was passed over the wire, the proximal curl was visualized on fluoroscopy and the distal curl was visualized using cystoscope. Hydronephrotic drip was seen from the stent. The bladder was emptied at the end of the case. Patient tolerated procedure well was taken to recovery in stable condition
--- NOTE | 2025-02-10 20:01 | P.PN ---
Subjective Progress Note Date: 02/10/25 Principal diagnosis: Patient doing well today overall. Mentions some mild abdominal pain today with some nausea after her morning meal. Denies any vomiting or other new symptoms overnight. Objective - Vital Signs Vital signs: Vital Signs Temp 98.5 F 02/10/25 15:25 Pulse 89 02/10/25 15:25 Resp 16 02/10/25 15:25 BP 148/87 02/10/25 15:25 Pulse Ox 99 02/10/25 15:25 FiO2 Intake & Output 02/10/25 02/10/25 02/11/25 06:59 18:59 06:59 Intake Total 1660 850 Output Total 0 Balance 1660 850 0 Intake: Intake, IV Titration 1660 Amount Ampicillin 1,000 mg In 50 Sodium Chloride 0.9% 50 ml @ 100 mls/hr IVPB Q4HR [facility] Rx#:[id number] Sodium Chloride 0.9% 1, 1560 000 ml @ 130 mls/hr IV . Q7H42M [facility] Rx#:[id number] cefTRIAXone 2 gm In 50 Sodium Chloride 0.9% 50 ml @ 100 mls/hr IVPB Q24H [facility] Rx#:[id number] Oral 540 Blood Product 310 Rc As-1 Unit 310 [id number] Output: Estimated Blood Loss 0 Other: # Voids 3 3 # Bowel Movements 3 - Exam Gen: In NAD, non-toxic HEENT: normocephalic, atraumatic, hearing acuity is intant, mucous membranes moist CVS: perfusing all extremities well, no pitting edema, Respiratory: symmetric chest expansion, no accessory muscle use, GI: Mild tenderness to palpation especially to LLQ. No guarding or rigidity. : no suprapubic tenderness, no CVA tenderness MSK/Derm: no rashes, cyanosis Neuro: CN II-XII intact, no motor weakness, Psych: cooperative, euthymic mood, judgment and insight is intact - Labs CBC & Chem 7: 02/10/25 17:30 02/09/25 05:43 Labs: Abnormal Lab Results - Last 24 Hours (Table) 02/10/25 02/10/25 02/10/25 Range/Units 05:21 09:18 13:03 WBC 1.99 L (4.50-10.00) 10*3/uL RBC 2.09 L (4.10-5.20) 10*6/uL Hgb 6.8 L* (12.0-15.0) g/dL Hct 21.0 L (37.2-46.3) % MCV 100.5 H (80.0-97.0) fL MCH 32.5 H (27.0-32.0) pg RDW 17.7 H (11.5-14.5) % Plt Count 90 L D (140-440) 10*3/uL Immature Gran # (0.00-0.04) 10*3/uL Neutrophils # 1.14 L (1.80-7.70) 10*3/uL Lymphocytes # 0.47 L (0.90-5.00) 10*3/uL Lymphocytes # (Manual) (1.0-4.8) k/uL Eosinophils # 0.01 L (0.04-0.35) 10*3/uL Magnesium (1.6-2.3) mg/dL C. difficile (EIA) Intrp Positive A (Negative) Crossmatch See Detail 02/10/25 02/10/25 Range/Units 17:30 17:30 WBC 2.51 L (4.50-10.00) 10*3/uL RBC 2.43 L (4.10-5.20) 10*6/uL Hgb 7.8 L (12.0-15.0) g/dL Hct 23.3 L (37.2-46.3) % MCV (80.0-97.0) fL MCH 32.1 H (27.0-32.0) pg RDW 16.5 H (11.5-14.5) % Plt Count 86 L (140-440) 10*3/uL Immature Gran # 0.17 H (0.00-0.04) 10*3/uL Neutrophils # (1.80-7.70) 10*3/uL Lymphocytes # (0.90-5.00) 10*3/uL Lymphocytes # (Manual) 0.78 L (1.0-4.8) k/uL Eosinophils # (0.04-0.35) 10*3/uL Magnesium 1.1 L (1.6-2.3) mg/dL C. difficile (EIA) Intrp (Negative) Crossmatch Microbiology - Last 24 Hours (Table) 02/07/25 23:55 Urine Culture - Final Urine,Voided Escherichia coli Enterococcus faecalis VRE 02/07/25 00:14 Blood Culture - Preliminary Blood Assessment and Plan Assessment: Assessment/plan: 34-year-old female with A-fib, lung cancer coming in for generalized weakness. ED doctor accepted the patient to rule out underlying infectious process due to elevated white count and abdominal pain Generalized weakness Complicated UTI Nephrolithaisis -Underwent L Cystoscopy and L stent insertion today -Continue ceftriaxone, ampicillin -UCx growing E coli and Enterococcus Faecalis; sensitivities for E. coli are pending, sensitivities for Enterococcus are appreciated -Urology following -Patient recieved 1 unit of PRBC yesterday. Repeat CBC ordered. Monitor Hgb, P LTs for transfusion needs clostridium difficile colitis -Placed on Vancomycin 125 mg PO QID for 10 days- started today. -continue to monitor stool output (3 recorded today) Intractable right rib pain Management by as needed Tylenol 650 mg PO Q6HR PRN, Dilaudid 1 mg Q3 -4 hours for severe pain. Renal function unremarkable sodium 136 potassium 3.7 BUN 11.8 creatinine 0.5 Respiratory virus panel negative for COVID influenza and RSV Full code DVT prophylaxis: Lovenox held today due to cystoscopy today I saw and evaluated the patient during the sellers and critical portions of this encounter, and discussed the case in detail with the resident author of this note, I agree with the Assessment and Plan, and my changes, if any, are highlighted in blue. Pancytopenia: Anemia, leukopenia, thrombocytopenia - Continue to monitor and transfuse as needed, required 1 unit of packed red blood cells today for hemoglobin of 6.8 - Monitor platelets with transfusion threshold of less than 20 given fevers and C. difficile colitis - Monitor for absolute neutrophil count lower than 500 with possible readministration of G-CSF if patient requires, oncology following
--- NOTE | 2025-02-10 20:14 | FL ---
EXAMINATION TYPE: FL guidance operating room Intraoperative/procedural fluoroscopic services were pro vided. CLINICAL INDICATION:Female, 74 years old with history of LT ureteral stent insertion; , [facility] FINDINGS: Single fluoroscopic image demonstrating left ureter stent insertion. No radiographic evidence for com plication. Total fluoroscopy time is 0.4 seconds. DAP: 0.26059 Gycm2 Please see the operative/procedural note for further details. [facility], , 02/10/2025 8:12 PM
[2025-02-10] MEDS: VANCOMYCIN ORAL SOLUTION 250 MG/5 ML BOTTLE PO SCH (21:32)
[2025-02-11] MEDS: MAGNESIUM SULFATE-D5W PMX 1 GM in DEXTROSE/WATER 1 100ML.BAG IVPB SCH (07:38)
--- NOTE | 2025-02-11 09:11 | P.PN ---
Subjective Patient underwent left-sided stent insertion yesterday, indicates abdominal pain has improved. Denies any dysuria or gross hematuria. She is hemodynamically stable Objective - Vital Signs Vital signs: Vital Signs Temp 98.1 F 02/11/25 07:24 Pulse 101 H 02/11/25 07:24 Resp 14 02/11/25 07:24 BP 147/74 02/11/25 07:24 Pulse Ox 98 02/11/25 07:24 FiO2 Intake & Output 02/10/25 02/11/25 02/11/25 18:59 06:59 18:59 Intake Total 850 100 Output Total 0 Balance 850 100 Intake: IV 100 Oral 540 Blood Product 310 Rc As-1 Unit 310 [id number] Output: Estimated Blood Loss 0 Other: # Voids 3 3 # Bowel Movements 3 - Constitutional General appearance: Present: no acute distress - Gastrointestinal General gastrointestinal: Present: soft. Absent: distended, tenderness - Psychiatric Psychiatric: Present: A&O x's 3 - Labs CBC & Chem 7: 02/10/25 17:30 02/09/25 05:43 Labs: Abnormal Lab Results - Last 24 Hours (Table) 02/10/25 02/10/25 02/10/25 Range/Units 05:21 09:18 13:03 WBC 1.99 L (4.50-10.00) 10*3/uL RBC 2.09 L (4.10-5.20) 10*6/uL Hgb 6.8 L* (12.0-15.0) g/dL Hct 21.0 L (37.2-46.3) % MCV 100.5 H (80.0-97.0) fL MCH 32.5 H (27.0-32.0) pg RDW 17.7 H (11.5-14.5) % Plt Count 90 L D (140-440) 10*3/uL Immature Gran # (0.00-0.04) 10*3/uL Neutrophils # 1.14 L (1.80-7.70) 10*3/uL Lymphocytes # 0.47 L (0.90-5.00) 10*3/uL Lymphocytes # (Manual) (1.0-4.8) k/uL Eosinophils # 0.01 L (0.04-0.35) 10*3/uL Magnesium (1.6-2.3) mg/dL C. difficile (EIA) Intrp Positive A (Negative) Crossmatch See Detail 02/10/25 02/10/25 Range/Units 17:30 17:30 WBC 2.51 L (4.50-10.00) 10*3/uL RBC 2.43 L (4.10-5.20) 10*6/uL Hgb 7.8 L (12.0-15.0) g/dL Hct 23.3 L (37.2-46.3) % MCV (80.0-97.0) fL MCH 32.1 H (27.0-32.0) pg RDW 16.5 H (11.5-14.5) % Plt Count 86 L (140-440) 10*3/uL Immature Gran # 0.17 H (0.00-0.04) 10*3/uL Neutrophils # (1.80-7.70) 10*3/uL Lymphocytes # (0.90-5.00) 10*3/uL Lymphocytes # (Manual) 0.78 L (1.0-4.8) k/uL Eosinophils # (0.04-0.35) 10*3/uL Magnesium 1.1 L (1.6-2.3) mg/dL C. difficile (EIA) Intrp (Negative) Crossmatch Microbiology - Last 24 Hours (Table) 02/07/25 23:55 Urine Culture - Final Urine,Voided Escherichia coli Enterococcus faecalis VRE Assessment and Plan Assessment: 74-year-old female on chemotherapy with 6 mm left-sided distal stone, patient was symptomatic from her stone yesterday, developed a low-grade fever. She underwent left-sided stent insertion. From urology standpoint she is okay for discharge, she will be arranged for outpatient left-sided ureteroscopy with holmium laser and stent removal once she completes her chemotherapy
[2025-02-11 11:07] LABS: HCT 22.8 % (37.2-46.3); HGB 7.8 g/dL (12.0-15.0); MCH 32.5 pg (27.0-32.0); MCHC 34.2 g/dL (32.0-37.0); MCV 95.0 fL (80.0-97.0); RBC 2.40 10*6/uL (4.10-5.20); RDW 17.0 % (11.5-14.5); WBC 2.77 10*3/uL (4.50-10.00)
[2025-02-11 11:30] LABS: Platelet Count 69 10*3/uL (140-440)
--- NOTE | 2025-02-11 11:48 | P.PN ---
Subjective Progress Note Date: 02/11/25 Patient was seen and evaluated bedside today. Patient tested positive for c. diff yesterday. No acute complaints at the moment, denies any episodes of diarrhea today. Objective - Vital Signs Vital signs: Vital Signs Temp 98.4 F 02/11/25 01:36 Pulse 88 02/11/25 01:36 Resp 16 02/11/25 01:36 BP 163/77 02/11/25 01:36 Pulse Ox 100 02/11/25 01:36 FiO2 Intake & Output 02/10/25 02/11/25 02/11/25 18:59 06:59 18:59 Intake Total 850 100 Output Total 0 Balance 850 100 Intake: IV 100 Oral 540 Blood Product 310 Rc As-1 Unit 310 [id number] Output: Estimated Blood Loss 0 Other: # Voids 3 3 # Bowel Movements 3 - Exam Physical Exam: General: nontoxic, no distress Cardiovascular: S1 S2 reg, no murmur, rubs, or gallops Lungs: CTA bilateral, no rhonchi, no rales, no accessory muscle use Abdominal: soft, non-tender to palpataion, no appreciable organomegaly Extremities: no gross muscle atrophy, no edema Psych: well appearing, appropriate affect - Labs CBC & Chem 7: 02/11/25 08:16 02/09/25 05:43 Labs: Abnormal Lab Results - Last 24 Hours (Table) 02/10/25 02/10/25 02/10/25 Range/Units 05:21 09:18 13:03 WBC 1.99 L (4.50-10.00) 10*3/uL RBC 2.09 L (4.10-5.20) 10*6/uL Hgb 6.8 L* (12.0-15.0) g/dL Hct 21.0 L (37.2-46.3) % MCV 100.5 H (80.0-97.0) fL MCH 32.5 H (27.0-32.0) pg RDW 17.7 H (11.5-14.5) % Plt Count 90 L D (140-440) 10*3/uL Immature Gran # (0.00-0.04) 10*3/uL Neutrophils # 1.14 L (1.80-7.70) 10*3/uL Lymphocytes # 0.47 L (0.90-5.00) 10*3/uL Lymphocytes # (Manual) (1.0-4.8) k/uL Eosinophils # 0.01 L (0.04-0.35) 10*3/uL Magnesium (1.6-2.3) mg/dL C. difficile (EIA) Intrp Positive A (Negative) Crossmatch See Detail 02/10/25 02/10/25 Range/Units 17:30 17:30 WBC 2.51 L (4.50-10.00) 10*3/uL RBC 2.43 L (4.10-5.20) 10*6/uL Hgb 7.8 L (12.0-15.0) g/dL Hct 23.3 L (37.2-46.3) % MCV (80.0-97.0) fL MCH 32.1 H (27.0-32.0) pg RDW 16.5 H (11.5-14.5) % Plt Count 86 L (140-440) 10*3/uL Immature Gran # 0.17 H (0.00-0.04) 10*3/uL Neutrophils # (1.80-7.70) 10*3/uL Lymphocytes # (0.90-5.00) 10*3/uL Lymphocytes # (Manual) 0.78 L (1.0-4.8) k/uL Eosinophils # (0.04-0.35) 10*3/uL Magnesium 1.1 L (1.6-2.3) mg/dL C. difficile (EIA) Intrp (Negative) Crossmatch Microbiology - Last 24 Hours (Table) 02/07/25 23:55 Urine Culture - Final Urine,Voided Escherichia coli Enterococcus faecalis VRE 02/07/25 00:14 Blood Culture - Preliminary Blood Assessment and Plan Plan: #. Complicated UTI positive for VRE and nephrolithiasis with 6mm obstructing left UVJ stone without hydronephrosis and moderate fecal content in bowels urology on board, antibiotics by primary team ID consulted #. Pancytopenia: anemia, leukopenia, thrombocytopenia #. Anemia due to chemotherapy Hgb today < 7 at 6.8, type and screen and transfuse with 1 unit of PRBC - no signs of acute bleeding - Monitor for absolute neutrophil count #. History of SCLC, on chemo/immunotherapy, last received C5D1 on 02/02/25 with neulasta biosimilar, Udenyca, given on 02/05/25 #. Positive C. difficile collitis likely secondary to chemotherapy antibiotics by primary team - Recent restaging PET from 01/30/25 images reviewed and compared to prior PET and on my review, she has overall improvement. Liver lesions mentioned have been present and stable on CT portion of prior PET scans including PET from 01/30/25 and doubt concerning for progression at this point. PET results have been discussed with patient and family. - Monitor for chemotoxicity. Patient had follow up appointment scheduled for today with Dr. Moser but was canceled due to this hospitalization. Discussed with patient and about treatment plan going forward. Informed patient that chemotherapy along with antibiotics can be the root cause of her C. difficile. Informed patient that we will discontinue chemotherapy and continue with immunotherapy going forward once cleared from C. difficile. ID consulted
[2025-02-11 12:13] LABS: Eosinophils # (M) 0.03 k/uL (0-0.7); Lymphocytes # (M) 0.80 k/uL (1.0-4.8); Monocytes # (M) 0.50 k/uL (0-1.0); Neutrophils # (M) 1.44 k/uL (1.3-7.7); Neutrophils % (M) 49 %; Total Cells Counted 100
[2025-02-11 12:14] LABS: RBC Morphology Normal
[2025-02-11 12:27] LABS: African American GFR (CKD) >90 (>60 ml/min/1.73 sqM); Anion Gap 8 mmol/L; Blood Urea Nitrogen 5 mg/dL (7-17); Calcium 8.1 mg/dL (8.4-10.2); Carbon Dioxide 25 mmol/L (22-30); Chloride 95 mmol/L (98-107); Glucose 95 mg/dL (74-99); Non-African American GFR(CKD) >90 (>60 ml/min/1.73 sqM); Potassium 3.3 mmol/L (3.5-5.1); Sodium 128 mmol/L (137-145)
[2025-02-11 12:43] LABS: Magnesium 1.8 mg/dL (1.6-2.3)
[2025-02-11] MEDS: POTASSIUM CHLORIDE ER 20 MEQ TAB.ER PO STA (13:56)
--- NOTE | 2025-02-11 14:59 | P.PN ---
Subjective Progress Note Date: 02/11/25 Principal diagnosis: Patient doing well today overall. Mentions some similar abdominal discomfort compared to yesterday. Denies any diarrhea since yesterday. Ambulating during exam. Objective - Vital Signs Vital signs: Vital Signs Temp 98.1 F 02/11/25 07:24 Pulse 101 H 02/11/25 07:24 Resp 14 02/11/25 07:24 BP 147/74 02/11/25 07:24 Pulse Ox 98 02/11/25 07:24 FiO2 Intake & Output 02/10/25 02/11/25 02/11/25 18:59 06:59 18:59 Intake Total 850 100 Output Total 0 Balance 850 100 Intake: IV 100 Oral 540 Blood Product 310 Rc As-1 Unit 310 [id number] Output: Estimated Blood Loss 0 Other: # Voids 3 3 # Bowel Movements 3 - Exam Gen: In NAD, non-toxic HEENT: normocephalic, atraumatic, hearing acuity is intant, mucous membranes moist CVS: perfusing all extremities well, no pitting edema, Respiratory: symmetric chest expansion, no accessory muscle use, GI: Mild tenderness to palpation especially to LLQ. No guarding or rigidity. : no suprapubic tenderness, no CVA tenderness MSK/Derm: no rashes, cyanosis Neuro: CN II-XII intact, no motor weakness, Psych: cooperative, euthymic mood, judgment and insight is intact - Labs CBC & Chem 7: 02/11/25 08:16 02/11/25 11:54 Labs: Abnormal Lab Results - Last 24 Hours (Table) 02/10/25 02/10/25 02/10/25 Range/Units 09:18 13:03 17:30 WBC (4.50-10.00) 10*3/uL RBC (4.10-5.20) 10*6/uL Hgb (12.0-15.0) g/dL Hct (37.2-46.3) % MCH (27.0-32.0) pg RDW (11.5-14.5) % Plt Count (140-440) 10*3/uL Immature Gran # (0.00-0.04) 10*3/uL Lymphocytes # (Manual) (1.0-4.8) k/uL Sodium (137-145) mmol/L Potassium (3.5-5.1) mmol/L Chloride (98-107) mmol/L BUN (7-17) mg/dL Creatinine (0.52-1.04) mg/dL Calcium (8.4-10.2) mg/dL Magnesium 1.1 L (1.6-2.3) mg/dL C. difficile (EIA) Intrp Positive A (Negative) Crossmatch See Detail 02/10/25 02/11/25 02/11/25 Range/Units 17:30 08:16 11:54 WBC 2.51 L 2.77 L (4.50-10.00) 10*3/uL RBC 2.43 L 2.40 L (4.10-5.20) 10*6/uL Hgb 7.8 L 7.8 L (12.0-15.0) g/dL Hct 23.3 L 22.8 L (37.2-46.3) % MCH 32.1 H 32.5 H (27.0-32.0) pg RDW 16.5 H 17.0 H (11.5-14.5) % Plt Count 86 L 69 L (140-440) 10*3/uL Immature Gran # 0.17 H 0.12 H (0.00-0.04) 10*3/uL Lymphocytes # (Manual) 0.78 L 0.80 L (1.0-4.8) k/uL Sodium 128 L (137-145) mmol/L Potassium 3.3 L (3.5-5.1) mmol/L Chloride 95 L (98-107) mmol/L BUN 5 L (7-17) mg/dL Creatinine 0.33 L (0.52-1.04) mg/dL Calcium 8.1 L (8.4-10.2) mg/dL Magnesium (1.6-2.3) mg/dL C. difficile (EIA) Intrp (Negative) Crossmatch Microbiology - Last 24 Hours (Table) 02/07/25 23:55 Urine Culture - Final Urine,Voided Escherichia coli Enterococcus faecalis VRE Assessment and Plan Assessment: Assessment/plan: 34-year-old female with A-fib, lung cancer on chemotherapy presenting for sepsis secondary to UTI. Course complicated by C. difficile colitis. Status post left ureteral stent placement. Generalized weakness Complicated UTI with sepsis Nephrolithaisis -Underwent L Cystoscopy and L stent insertion yesterday -Continue ceftriaxone 2 g every 24 hours, ampicillin 1 g every 4 hours IV, Consulting ID; appreciate recommendations -UCx growing E coli and Enterococcus Faecalis -Urology following clostridium difficile colitis -Placed on Vancomycin 125 mg PO QID for 10 days- started 02/10/2025. -continue to monitor stool output Pancytopenia: Anemia, leukopenia, thrombocytopenia -Patient recieved 1 unit of PRBC 02/10/2025. Repeat CBC demonstrates improvement to hgb. Monitor Hgb - Monitor platelets with transfusion threshold of less than 10 given fevers and C. difficile colitis - Monitor for absolute neutrophil count lower than 500 with possible readministration of G-CSF if patient requires, oncology following Intractable right rib pain -Management by as needed Tylenol 650 mg PO Q6HR PRN, Dilaudid 1 mg Q3 -4 hours for severe pain. -Respiratory virus panel negative for COVID influenza and RSV Hyponatremia, euvolemic/hypovolemic - Urine osmolality, serum osmolality, urine sodium pending - Repeat BMP - Patient was previously on normal saline at 130 cc an hour, currently discontinued Hypokalemia - 20 mEq oral potassium given today Hypomagnesemia, resolved Full code DVT prophylaxis: Lovenox 40 mg SQ daily Disposition: Pending clinical course I have seen and evaluated the patient today. Discussed with the resident and agree with the residents finding and plan as documented in the resident's note. Changes highlighted in blue font.
[2025-02-11 18:57] LABS: African American GFR (CKD) >90 (>60 ml/min/1.73 sqM); Anion Gap 9 mmol/L; Blood Urea Nitrogen 4 mg/dL (7-17); Calcium 8.5 mg/dL (8.4-10.2); Carbon Dioxide 25 mmol/L (22-30); Chloride 94 mmol/L (98-107); Glucose 97 mg/dL (74-99); Non-African American GFR(CKD) >90 (>60 ml/min/1.73 sqM); Potassium 3.3 mmol/L (3.5-5.1); Sodium 128 mmol/L (137-145)
[2025-02-11] MEDS: ONDANSETRON 4 MG/2 ML VIAL IVP PRN (19:54)
--- NOTE | 2025-02-11 22:37 | P.CONS ---
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 recently completed course of chemotherapy on 02/04/2025 presenting to the hospital about 6 days ago for evaluation of difficulty sitting upright due to weakness did have decreased appetite shortness of breath and right flank pain patient workup including abdominal pelvis CT and did shows evidence of obstructing 6 mm left UVJ stone no hydronephrosis of the left kidney patient is status post cystoscopy and left ureteral stent insertion on 02/10/2025 patient on presentation to the hospital was afebrile however she did spike a fever of 100.3 yesterday afternoon and 100.5 F this afternoon patient was tachycardic on admission patient not hypotensive or hypoxic no need for supplemental oxygen patient did have a elevated white count of 57.9 on admission subsequent normalized 70 white count of 2.77 creatinine 0.42 potassium 3.3 did have a positive UA urine culture not growing Enterococcus and VRE which is sensitive to ampicillin blood culture has been negative patient also developed diarrhea yesterday with multiple loose stools and stool for C. difficile is positive patient is currently on a combination of IV ampicillin and Rocephin and oral vancomycin infectious disease was consulted today for VRE UTI on chemo Review of Systems Positive point and negatives has been mentioned in the HPI, complete review of systems was performed and all other systems are negative Past Medical History Past Medical History: Atrial Fibrillation, Cancer, Eye Disorder, GERD/Reflux, Hypertension, Pneumonia Additional Past Medical History / Comment(s): hx migraines, ABD PAIN, HE MORRHOIDS, optic nerve damage tatiana eyes-impaired vision, pleural effusion & pericardial effusion May 2024, lung ca diagnosed Aug 2024- 5 rounds of chemo so far, one radiation tx History of Any Multi-Drug Resistant Organisms: None Reported, VRE Year Discovered:: 02/07/25 MDRO Source:: urine Past Surgical History: Breast Surgery Additional Past Surgical History / Comment(s): left breast lumpectomy x 2 "precancerous", colonoscopy, EGD, bronchoscopy, thoracoscopy; right subclavian port Past Anesthesia/Blood Transfusion Reactions: No Reported Reaction, Family History of Problems w/ Anesthesia Additional Past Anesthesia/Blood Transfusion Reaction / Comm: daughter has hard time coming out of anesthesia Past Psychological History: Depression Smoking Status: Former smoker Past Alcohol Use History: Rare Additional Past Alcohol Use History / Comment(s): quit smoking 2023; smoked on and off since age 23 Past Drug Use History: None Reported - Past Family History Brother(s) Family Medical History: Pulmonary Embolus Mother Family Medical History: Memory Impairment Additional Family Medical History / Comment(s): from Alzheimer's. Father Additional Family Medical History / Comment(s): from unknown cause, possibly his heart. Medications and Allergies Home Medications Medication Instructions Recorded Confirmed Type Ondansetron [Zofran] 4 - 8 mg PO Q4H PRN 11/29/24 02/07/25 History Acetaminophen Tab [Tylenol] 650 mg PO Q6HR PRN tab 12/09/24 02/07/25 Rx Loperamide [Imodium] 2 mg PO Q2HR PRN cap 12/09/24 02/07/25 Rx Magnesium Oxide [Mag-Ox] 400 mg PO DAILY #7 tab 12/09/24 02/07/25 Rx Prochlorperazine [Compazine] 10 mg PO Q6H PRN #30 tab 12/09/24 02/07/25 Rx Omeprazole Magnesium [PriLOSEC OTC] 20 mg PO DAILY 12/30/24 02/07/25 History traMADol HCL 50 mg PO Q6H PRN 30 Days #90 tab 01/15/25 02/07/25 Rx Potassium Chloride ER [K-Dur 20] 20 meq PO DAILY 01/20/25 02/07/25 History HYDROcodone/APAP 10-325MG [Hurlock 1 tab PO TID PRN 02/07/25 02/07/25 History 10-325] Multivit-Min/Iron/Folic/Lutein 1 tab PO DAILY 02/07/25 02/07/25 History [Centrum Silver Women Tablet] Allergies Allergy/AdvReac Type Severity Reaction Status Date / Time No Known Allergies Allergy Verified 02/07/25 11:16 Physical Exam Vitals: Vital Signs Temp Pulse Pulse Pulse Resp BP BP 02/11/25 07:24 98.1 F 101 H 14 147/74 02/11/25 01:36 98.4 F 88 16 02/10/25 22:35 72 02/10/25 22:20 80 02/10/25 22:05 99 02/10/25 21:50 103 H 02/10/25 21:35 92 02/10/25 21:20 93 02/10/25 20:24 104 H 14 02/10/25 20:10 104 H 14 02/10/25 19:56 109 H 14 02/10/25 19:55 02/10/25 19:42 97.0 F L 102 H 14 131/78 02/10/25 15:25 98.5 F 89 16 148/87 02/10/25 12:58 100.1 F H 103 H 16 02/10/25 12:57 100 F H 94 16 131/81 02/10/25 12:50 100.3 F H 105 H 16 132/80 BP Pulse Ox 02/11/25 07:24 98 02/11/25 01:36 163/77 100 02/10/25 22:35 151/84 93 L 02/10/25 22:20 137/79 99 02/10/25 22:05 145/89 100 02/10/25 21:50 151/79 98 02/10/25 21:35 142/84 100 02/10/25 21:20 147/89 100 02/10/25 20:24 159/90 100 02/10/25 20:10 153/84 100 02/10/25 19:56 151/83 100 02/10/25 19:55 100 02/10/25 19:42 95 02/10/25 15:25 99 02/10/25 12:58 134/71 100 02/10/25 12:57 99 02/10/25 12:50 100 Intake and Output 02/10/25 02/11/25 02/11/25 22:59 06:59 14:59 Intake Total 950 Output Total 0 Balance 950 Intake: IV 100 Oral 540 Blood Product 310 Rc As-1 Unit 310 [id number] Output: Estimated Blood Loss 0 Other: # Voids 3 3 # Bowel Movements 3 GENERAL DESCRIPTION: Elderly female lying in bed, no distress. No tachypnea or accessory muscle of respiration use. HEENT: Shows Pallor , no scleral icterus. Oral mucous membrane is dry. NECK: Trachea central, no thyromegaly. LUNGS: Unlabored breathing. Clear to auscultation anteriorly. No wheeze or crackle. HEART: S1, S2, regular rate and rhythm. No loud murmur ABDOMEN: Soft, no tenderness , guarding or rigidity, no organomegaly EXTREMITIES: No edema of feet. SKIN: No rash, no masses palpable. NEUROLOGICAL: The patient is awake, alert, oriented x3, mood and affect normal. Results CBC & Chem 7: 02/11/25 08:16 02/11/25 18:30 Labs: Abnormal Lab Results - Last 24 Hours (Table) 02/10/25 02/10/25 02/10/25 Range/Units 09:18 13:03 17:30 WBC (4.50-10.00) 10*3/uL RBC (4.10-5.20) 10*6/uL Hgb (12.0-15.0) g/dL Hct (37.2-46.3) % MCH (27.0-32.0) pg RDW (11.5-14.5) % Plt Count (140-440) 10*3/uL Immature Gran # (0.00-0.04) 10*3/uL Lymphocytes # (Manual) (1.0-4.8) k/uL Magnesium 1.1 L (1.6-2.3) mg/dL C. difficile (EIA) Intrp Positive A (Negative) Crossmatch See Detail 02/10/25 02/11/25 Range/Units 17:30 08:16 WBC 2.51 L 2.77 L (4.50-10.00) 10*3/uL RBC 2.43 L 2.40 L (4.10-5.20) 10*6/uL Hgb 7.8 L 7.8 L (12.0-15.0) g/dL Hct 23.3 L 22.8 L (37.2-46.3) % MCH 32.1 H 32.5 H (27.0-32.0) pg RDW 16.5 H 17.0 H (11.5-14.5) % Plt Count 86 L 69 L (140-440) 10*3/uL Immature Gran # 0.17 H 0.12 H (0.00-0.04) 10*3/uL Lymphocytes # (Manual) 0.78 L (1.0-4.8) k/uL Magnesium (1.6-2.3) mg/dL C. difficile (EIA) Intrp (Negative) Crossmatch Microbiology - Last 24 Hours (Table) 02/07/25 23:55 Urine Culture - Final Urine,Voided Escherichia coli Enterococcus faecalis VRE Assessment and Plan (1) C. difficile colitis Current Visit: Yes Status: Acute Code(s): A04.72 - ENTEROCOLITIS D/T CLOSTRIDIUM DIFFICILE, NOT SPCF RECUR SNOMED Code(s): 071602762 (2) Sepsis Current Visit: Yes Status: Acute Code(s): A41.9 - SEPSIS, UNSPECIFIED OR GANISM SNOMED Code(s): 00037161 (3) UTI (urinary tract infection) Current Visit: Yes Status: Acute Code(s): N39.0 - URINARY TRACT INFECTION, SITE NOT SPECIFIED SNOMED Code(s): 79700909 Plan: 1patient with initial presentation to the hospital with sepsis in this patient who did have complicated UTI with left-sided ureteral stone requiring cystoscopy and left ureteral stent placement with urine culture showing E. coli and Enterococcus which is VRE however sensitive to ampicillin. 2patient clinical course also complicated by development of diarrhea and stool for C. difficile is positive that would complicate her overall treatment for complicated UTI 3-patient will be treated with ampicillin which should cover for both E. coli Enterococcus discontinue Rocephin to decrease the burden of antibiotic exposure 4-patient to be treated with oral vancomycin encouraged to increase her probiotic and yogurt intake if diarrhea persist will advise Questran avoid antimotility agents We will follow on clinical condition and cultures to further adjust medication if needed Thank you for this consultation we will follow the patient along with you Dictation was produced using [employer] dictation software. please excuse any grammatical, word or spelling errors. Time with Patient: Greater than 30
[2025-02-12] MEDS: PROCHLORPERAZINE 10 MG TAB PO PRN (01:51)
[2025-02-12 05:27] LABS: Basophils # (A) 0.05 10*3/uL (0.00-0.10); Basophils % (A) 1.7 %; Eosinophils # (A) 0.00 10*3/uL (0.04-0.35); Eosinophils % (A) 0.0 %; HCT 21.3 % (37.2-46.3); HGB 7.3 g/dL (12.0-15.0); Immature Platelet Fraction 3.8 % (1.1-6.1); Lymphocytes # (A) 0.42 10*3/uL (0.90-5.00); Lymphocytes % (A) 14.5 %; MCH 32.6 pg (27.0-32.0); MCHC 34.3 g/dL (32.0-37.0); MCV 95.1 fL (80.0-97.0); Monocytes # (A) 0.60 10*3/uL (0.20-1.00); Monocytes % (A) 20.7 %; Neutrophils # (A) 1.79 10*3/uL (1.80-7.70); Neutrophils % (A) 61.7 %; RBC 2.24 10*6/uL (4.10-5.20); RDW 16.7 % (11.5-14.5); WBC 2.90 10*3/uL (4.50-10.00)
[2025-02-12 05:53] LABS: Platelet Count 44 10*3/uL (140-440)
[2025-02-12 05:56] LABS: African American GFR (CKD) >90 (>60 ml/min/1.73 sqM); Anion Gap 7 mmol/L; Blood Urea Nitrogen 4 mg/dL (7-17); Calcium 8.1 mg/dL (8.4-10.2); Carbon Dioxide 26 mmol/L (22-30); Chloride 95 mmol/L (98-107); Glucose 98 mg/dL (74-99); Non-African American GFR(CKD) >90 (>60 ml/min/1.73 sqM); Potassium 3.1 mmol/L (3.5-5.1); Sodium 128 mmol/L (137-145)
[2025-02-12] MEDS: ENOXAPARIN 40 MG/0.4 ML SYRINGE SQ SCH (08:40)
[2025-02-12] MEDS: POTASSIUM CHLORIDE ER 20 MEQ TAB.ER PO SCH (08:40)
[2025-02-12] MEDS: CHERRY FLAVOR 60 ML BOTTLE PO PRN (08:47)
[2025-02-12 09:20] LABS: Basophils # (A) 0.02 10*3/uL (0.00-0.10); Basophils % (A) 0.9 %; Eosinophils # (A) 0.00 10*3/uL (0.04-0.35); Eosinophils % (A) 0.0 %; Lymphocytes # (A) 0.28 10*3/uL (0.90-5.00); Lymphocytes % (A) 12.3 %; MCH 32.5 pg (27.0-32.0); MCHC 33.5 g/dL (32.0-37.0); MCV 97.0 fL (80.0-97.0); Monocytes # (A) 0.43 10*3/uL (0.20-1.00); Monocytes % (A) 18.9 %; Neutrophils # (A) 1.53 10*3/uL (1.80-7.70); Neutrophils % (A) 67.5 %; RBC 1.69 10*6/uL (4.10-5.20); RDW 17.0 % (11.5-14.5); WBC 2.27 10*3/uL (4.50-10.00)
[2025-02-12 09:30] LABS: African American GFR (CKD) >90 (>60 ml/min/1.73 sqM); Anion Gap 5 mmol/L; Blood Urea Nitrogen 2 mg/dL (7-17); Carbon Dioxide 18 mmol/L (22-30); Chloride 111 mmol/L (98-107); Glucose 78 mg/dL (74-99); Non-African American GFR(CKD) >90 (>60 ml/min/1.73 sqM); Sodium 134 mmol/L (137-145)
[2025-02-12 09:33] LABS: HCT 16.4 % (37.2-46.3)
[2025-02-12 09:34] LABS: HGB 5.5 g/dL (12.0-15.0)
[2025-02-12 09:44] LABS: Calcium 5.5 mg/dL (8.4-10.2); Potassium 2.2 mmol/L (3.5-5.1)
[2025-02-12 10:11] LABS: Platelet Count 30 10*3/uL (140-440)
--- NOTE | 2025-02-12 11:05 | US ---
EXAMINATION TYPE: US kidneys/renal and bladder DATE OF EXAM: 02/12/2025 COMPARISON: CT abdomen and pelvis 02/07/2025 CLINICAL INDICATION: Female, 74 years old with history of flank pain; Pain TECHNIQUE: Grayscale imaging of the bilateral kidneys and urinary bladder: FINDINGS: EXAM MEASUREMENTS: Right Kidney: 10.4 x 4.3 x 4.4 cm Left Kidney: 11.9 x 5.5 x 4.7 cm Small amount of fluid lateral to right kidney Right Kidney: No evidence of hydro, possible calculi lower pole= 0.8 cm, cystic lesion lower pole= 1. 4 x 1.6 x 1.2 cm Left Kidney: No evidence of hydro, hypoechoic lesion lower pole= 2.1 x 2.1 x 1.6 cm Bladder: wnl Bilateral Jets seen: No Small right perinephric fluid. There is no evidence for hydronephrosis at this point in time. Inferio r right renal pole 0.8 cm shadowing calculus. Simple thin-walled cyst involving the inferior pole of the right kidney measuring up to 1.6 cm. Simple appearing left renal lower pole cyst. No enhancement on recent CT. No follow-up recommended. Corticomedullary differentiation is maintained bilaterally. The urinary bladder is anechoic. IMPRESSION: 1. No hydronephrosis. 2. Nonobstructing right renal calculus. [facility], , 02/12/2025 11:02 AM
[2025-02-12 13:09] VITALS: BMI 20.1
[2025-02-12 13:24] LABS: Basophils # (A) 0.04 10*3/uL (0.00-0.10); Basophils % (A) 1.0 %; Eosinophils # (A) 0.00 10*3/uL (0.04-0.35); Eosinophils % (A) 0.0 %; HCT 23.4 % (37.2-46.3); Lymphocytes # (A) 0.73 10*3/uL (0.90-5.00); Lymphocytes % (A) 18.5 %; MCH 32.9 pg (27.0-32.0); MCHC 33.8 g/dL (32.0-37.0); MCV 97.5 fL (80.0-97.0); Monocytes # (A) 0.92 10*3/uL (0.20-1.00); Monocytes % (A) 23.3 %; Neutrophils # (A) 2.23 10*3/uL (1.80-7.70); Neutrophils % (A) 56.4 %; RBC 2.40 10*6/uL (4.10-5.20); RDW 16.9 % (11.5-14.5); WBC 3.95 10*3/uL (4.50-10.00)
[2025-02-12 13:26] LABS: HGB 7.9 g/dL (12.0-15.0)
[2025-02-12 13:41] LABS: ALT 18 U/L (4-34); AST 23 U/L (14-36); African American GFR (CKD) >90 (>60 ml/min/1.73 sqM); Albumin 2.7 g/dL (3.5-5.0); Albumin/Globulin Ratio 1.3; Alkaline Phosphatase 161 U/L (38-126); Anion Gap 7 mmol/L; Blood Urea Nitrogen 4 mg/dL (7-17); Calcium 8.2 mg/dL (8.4-10.2); Carbon Dioxide 27 mmol/L (22-30); Chloride 92 mmol/L (98-107); Globulin 2.1 g/dL; Glucose 97 mg/dL (74-99); Magnesium 1.5 mg/dL (1.6-2.3); Non-African American GFR(CKD) >90 (>60 ml/min/1.73 sqM); Potassium 3.7 mmol/L (3.5-5.1); Sodium 126 mmol/L (137-145); Total Protein 4.8 g/dL (6.3-8.2)
--- NOTE | 2025-02-12 14:57 | P.PN ---
Subjective Progress Note Date: 02/12/25 Principal diagnosis: Patient reports worse back pain this morning (currently 7/10 in intensity). Denies any dysuria and is having no problems using the restroom. Also mentions a generalized headache today. 1 BM recorded since yesterday. Objective - Vital Signs Vital signs: Vital Signs Temp 101.1 F H 02/12/25 13:16 Pulse 116 H 02/12/25 13:16 Resp 16 02/12/25 13:16 BP 114/61 02/12/25 13:16 Pulse Ox 93 L 02/12/25 13:16 FiO2 Intake & Output 02/11/25 02/12/25 02/12/25 18:59 06:59 18:59 Intake Total 1080 Balance 1080 Weight 49.895 kg Intake: Oral 1080 Other: Voiding Method Toilet # Voids 2 3 # Bowel Movements 1 1 - Exam Gen: In NAD, non-toxic HEENT: normocephalic, atraumatic, hearing acuity is intant, mucous membranes moist CVS: perfusing all extremities well, no pitting edema, Respiratory: symmetric chest expansion, no accessory muscle use, GI: Worsened tenderness to abdomen especially to LLQ. No guarding or rigidity. : Suprapubic fullness but no suprapubic tenderness. Bilateral CVA tenderness worse on L side. MSK/Derm: no rashes, cyanosis Neuro: CN II-XII intact, no motor weakness, Psych: cooperative, euthymic mood, judgment and insight is intact - Labs CBC & Chem 7: 02/12/25 13:11 02/12/25 13:11 Labs: Abnormal Lab Results - Last 24 Hours (Table) 02/11/25 02/11/25 02/12/25 Range/Units 11:54 18:30 05:13 WBC 2.90 L (4.50-10.00) 10*3/uL RBC 2.24 L (4.10-5.20) 10*6/uL Hgb 7.3 L (12.0-15.0) g/dL Hct 21.3 L (37.2-46.3) % MCV (80.0-97.0) fL MCH 32.6 H (27.0-32.0) pg RDW 16.7 H (11.5-14.5) % Plt Count 44 L (140-440) 10*3/uL Neutrophils # 1.79 L (1.80-7.70) 10*3/uL Lymphocytes # 0.42 L (0.90-5.00) 10*3/uL Eosinophils # 0.00 L (0.04-0.35) 10*3/uL Sodium 128 L (137-145) mmol/L Potassium 3.3 L (3.5-5.1) mmol/L Chloride 94 L (98-107) mmol/L Carbon Dioxide (22-30) mmol/L BUN 4 L (7-17) mg/dL Creatinine 0.42 L (0.52-1.04) mg/dL Osmolality 271 L (275-295) mOsm/kg Calcium (8.4-10.2) mg/dL Magnesium (1.6-2.3) mg/dL Alkaline Phosphatase (38-126) U/L Total Protein (6.3-8.2) g/dL Albumin (3.5-5.0) g/dL 02/12/25 02/12/25 02/12/25 Range/Units 05:13 09:00 09:00 WBC 2.27 L (4.50-10.00) 10*3/uL RBC 1.69 L (4.10-5.20) 10*6/uL Hgb 5.5 L* D (12.0-15.0) g/dL Hct 16.4 L* (37.2-46.3) % MCV (80.0-97.0) fL MCH 32.5 H (27.0-32.0) pg RDW 17.0 H (11.5-14.5) % Plt Count 30 L (140-440) 10*3/uL Neutrophils # 1.53 L (1.80-7.70) 10*3/uL Lymphocytes # 0.28 L (0.90-5.00) 10*3/uL Eosinophils # 0.00 L (0.04-0.35) 10*3/uL Sodium 128 L 134 L (137-145) mmol/L Potassium 3.1 L 2.2 L* (3.5-5.1) mmol/L Chloride 95 L 111 H (98-107) mmol/L Carbon Dioxide 18 L (22-30) mmol/L BUN 4 L 2 L (7-17) mg/dL Creatinine 0.39 L 0.32 L (0.52-1.04) mg/dL Osmolality (275-295) mOsm/kg Calcium 8.1 L 5.5 L* (8.4-10.2) mg/dL Magnesium (1.6-2.3) mg/dL Alkaline Phosphatase (38-126) U/L Total Protein (6.3-8.2) g/dL Albumin (3.5-5.0) g/dL 02/12/25 02/12/25 Range/Units 13:11 13:11 WBC 3.95 L (4.50-10.00) 10*3/uL RBC 2.40 L (4.10-5.20) 10*6/uL Hgb 7.9 L D (12.0-15.0) g/dL Hct 23.4 L (37.2-46.3) % MCV 97.5 H (80.0-97.0) fL MCH 32.9 H (27.0-32.0) pg RDW 16.9 H (11.5-14.5) % Plt Count 39 L (140-440) 10*3/uL Neutrophils # (1.80-7.70) 10*3/uL Lymphocytes # (0.90-5.00) 10*3/uL Eosinophils # (0.04-0.35) 10*3/uL Sodium 126 L (137-145) mmol/L Potassium (3.5-5.1) mmol/L Chloride 92 L (98-107) mmol/L Carbon Dioxide (22-30) mmol/L BUN 4 L (7-17) mg/dL Creatinine 0.44 L (0.52-1.04) mg/dL Osmolality (275-295) mOsm/kg Calcium 8.2 L (8.4-10.2) mg/dL Magnesium 1.5 L (1.6-2.3) mg/dL Alkaline Phosphatase 161 H (38-126) U/L Total Protein 4.8 L (6.3-8.2) g/dL Albumin 2.7 L (3.5-5.0) g/dL Microbiology - Last 24 Hours (Table) 02/07/25 00:14 Blood Culture - Final Blood Assessment and Plan Assessment: Data reviewed today: - WBC 3.95, hemoglobin 7.9, sodium 126, potassium 3.7, creatinine 0.44, magnesium 1.5 Assessment/plan: 34-year-old female with A-fib, lung cancer on chemotherapy presenting for sepsis secondary to UTI. Course complicated by C. difficile colitis. Status post left ureteral stent placement. Generalized weakness Complicated UTI with sepsis Nephrolithaisis -Underwent L Cystoscopy and L stent insertion 02/10/2025 -Fever of 101.1 today -Kidney US negative for hydronephrosis. Non-obstruction right renal calculus visualized. -Discontinue ceftriaxone per ID recommendations, continue ampicillin 1 g every 4 hours IV, Consulting ID; appreciate continued recommendations -UCx growing E coli and Enterococcus Faecalis clostridium difficile colitis -Continue Vancomycin 125 mg PO QID for 10 days- started 02/10/2025. -continue to monitor stool output Pancytopenia: Anemia, leukopenia, thrombocytopenia -Patient recieved 1 unit of PRBC 02/10/2025. Repeat CBC demonstrates improvement to hgb. Monitor Hgb - Monitor platelets with transfusion threshold of less than 10 given fevers and C. difficile colitis - Monitor for absolute neutrophil count lower than 500 with possible readministration of G-CSF if patient requires, oncology following Intractable right rib pain -Management by as needed Tylenol 650 mg PO Q6HR PRN, Dilaudid 1 mg Q3 -4 hours for severe pain. -Respiratory virus panel negative for COVID influenza and RSV Hyponatremia, euvolemic - Repeat BMP in AM - Morning cortisol ordered - Patient was previously on normal saline at 130 cc an hour, currently discontinued - TSH 1.4 - Will start fluid restriction 200 cc Hypomagnesemia -Repleated Headache # Most likely tension type headache given patient's description of symptoms -Monitor severity; patient is currently on tylenol and dilauded for her back/rib pain. Hypokalemia, resolved - Given oral KCL 20 TID. Repeat BMP shows K of 3.7 Full code DVT prophylaxis: Pneumatic compression sleeves. Discontinued lovenox given low plt. Disposition: Pending clinical course I have seen and evaluated the patient today. Discussed with the resident and agree with the residents finding and plan as documented in the resident's note. Changes highlighted in blue font.
[2025-02-12 15:13] LABS: Platelet Count 39 10*3/uL (140-440)
--- NOTE | 2025-02-12 16:02 | P.PN ---
Subjective Progress Note Date: 02/12/25 Principal diagnosis: Reason for follow-up is complicated UTI and C. 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 coli Enterococcus also developed C. difficile colitis prompting this consultation. On today's evaluation that is 02/12/2025,the patient did spike a fever of 101.1 F this afternoon patient denies having any chest pain shortness of breath or cough patient nausea and vomiting has improved no abdominal pain and diarrhea is slowed on. Patient white count is 3.95 creatinine 0.44 Objective - Vital Signs Vital signs: Vital Signs Temp 101.1 F H 02/12/25 13:16 Pulse 116 H 02/12/25 13:16 Resp 16 02/12/25 13:16 BP 114/61 02/12/25 13:16 Pulse Ox 93 L 02/12/25 13:16 FiO2 Intake & Output 02/11/25 02/12/25 02/12/25 18:59 06:59 18:59 Intake Total 1080 Balance 1080 Weight 49.895 kg Intake: Oral 1080 Other: Voiding Method Toilet # Voids 2 3 # Bowel Movements 1 1 - Exam GENERAL DESCRIPTION: An elderly female lying in bed in no distress RESPIRATORY SYSTEM: Unlabored breathing , decreased breath sounds at bases HEART: S1 S2 regular rate and rhythm , ABDOMEN: Soft , no tenderness EXTREMITIES: No edema feet - Labs CBC & Chem 7: 02/12/25 13:11 02/12/25 13:11 Labs: Abnormal Lab Results - Last 24 Hours (Table) 02/11/25 02/11/25 02/12/25 Range/Units 11:54 18:30 05:13 WBC 2.90 L (4.50-10.00) 10*3/uL RBC 2.24 L (4.10-5.20) 10*6/uL Hgb 7.3 L (12.0-15.0) g/dL Hct 21.3 L (37.2-46.3) % MCV (80.0-97.0) fL MCH 32.6 H (27.0-32.0) pg RDW 16.7 H (11.5-14.5) % Plt Count 44 L (140-440) 10*3/uL Neutrophils # 1.79 L (1.80-7.70) 10*3/uL Lymphocytes # 0.42 L (0.90-5.00) 10*3/uL Eosinophils # 0.00 L (0.04-0.35) 10*3/uL Sodium 128 L (137-145) mmol/L Potassium 3.3 L (3.5-5.1) mmol/L Chloride 94 L (98-107) mmol/L Carbon Dioxide (22-30) mmol/L BUN 4 L (7-17) mg/dL Creatinine 0.42 L (0.52-1.04) mg/dL Osmolality 271 L (275-295) mOsm/kg Calcium (8.4-10.2) mg/dL Magnesium (1.6-2.3) mg/dL Alkaline Phosphatase (38-126) U/L Total Protein (6.3-8.2) g/dL Albumin (3.5-5.0) g/dL 02/12/25 02/12/25 02/12/25 Range/Units 05:13 09:00 09:00 WBC 2.27 L (4.50-10.00) 10*3/uL RBC 1.69 L (4.10-5.20) 10*6/uL Hgb 5.5 L* D (12.0-15.0) g/dL Hct 16.4 L* (37.2-46.3) % MCV (80.0-97.0) fL MCH 32.5 H (27.0-32.0) pg RDW 17.0 H (11.5-14.5) % Plt Count 30 L (140-440) 10*3/uL Neutrophils # 1.53 L (1.80-7.70) 10*3/uL Lymphocytes # 0.28 L (0.90-5.00) 10*3/uL Eosinophils # 0.00 L (0.04-0.35) 10*3/uL Sodium 128 L 134 L (137-145) mmol/L Potassium 3.1 L 2.2 L* (3.5-5.1) mmol/L Chloride 95 L 111 H (98-107) mmol/L Carbon Dioxide 18 L (22-30) mmol/L BUN 4 L 2 L (7-17) mg/dL Creatinine 0.39 L 0.32 L (0.52-1.04) mg/dL Osmolality (275-295) mOsm/kg Calcium 8.1 L 5.5 L* (8.4-10.2) mg/dL Magnesium (1.6-2.3) mg/dL Alkaline Phosphatase (38-126) U/L Total Protein (6.3-8.2) g/dL Albumin (3.5-5.0) g/dL 02/12/25 02/12/25 Range/Units 13:11 13:11 WBC 3.95 L (4.50-10.00) 10*3/uL RBC 2.40 L (4.10-5.20) 10*6/uL Hgb 7.9 L D (12.0-15.0) g/dL Hct 23.4 L (37.2-46.3) % MCV 97.5 H (80.0-97.0) fL MCH 32.9 H (27.0-32.0) pg RDW 16.9 H (11.5-14.5) % Plt Count 39 L (140-440) 10*3/uL Neutrophils # (1.80-7.70) 10*3/uL Lymphocytes # (0.90-5.00) 10*3/uL Eosinophils # (0.04-0.35) 10*3/uL Sodium 126 L (137-145) mmol/L Potassium (3.5-5.1) mmol/L Chloride 92 L (98-107) mmol/L Carbon Dioxide (22-30) mmol/L BUN 4 L (7-17) mg/dL Creatinine 0.44 L (0.52-1.04) mg/dL Osmolality (275-295) mOsm/kg Calcium 8.2 L (8.4-10.2) mg/dL Magnesium 1.5 L (1.6-2.3) mg/dL Alkaline Phosphatase 161 H (38-126) U/L Total Protein 4.8 L (6.3-8.2) g/dL Albumin 2.7 L (3.5-5.0) g/dL Microbiology - Last 24 Hours (Table) 02/07/25 00:14 Blood Culture - Final Blood Assessment and Plan (1) C. difficile colitis Current Visit: Yes Status: Acute Code(s): A04.72 - ENTEROCOLITIS D/T CLOSTRIDIUM DIFFICILE, NOT SPCF RECUR SNOMED Code(s): 025400610 (2) Sepsis Current Visit: Yes Status: Acute Code(s): A41.9 - SEPSIS, UNSPECIFIED ORGANISM SNOMED Code(s): 17904678 (3) UTI (urinary tract infection) Current Visit: Yes Status: Acute Code(s): N39.0 - URINARY TRACT INFECTION, SITE NOT SPECIFIED SNOMED Code(s): 84662394 Plan: 1patient with initial presentation to the hospital with sepsis in this patient who did have complicated UTI with left-sided ureteral stone requiring cystoscopy and left ureteral stent placement with urine culture showing E. coli and Enterococcus which is VRE however sensitive to ampicillin. 2patient clinical course also complicated by development of diarrhea and stool for C. difficile is positive that would complicate her overall treatment for complicated UTI 3-patient currently being treated with ampicillin which should cover for both E. coli Enterococcus 4-patient advised to continue with oral vancomycin encouraged to increase her probiotic and yogurt intake if diarrhea persist will advise Questran avoid antimotility agents 5with the patient spiking a fever is concerning we will obtain the blood c ultures and follow the results Dictation was produced using [employer] dictation software. please excuse any grammatical, word or spelling errors. Time with Patient: Less than 30
--- NOTE | 2025-02-12 16:44 | P.PN ---
Subjective Progress Note Date: 02/12/25 Patient seen evaluated bedside. No acute complaints. Patient spiked a fever of 101.1F. Patient states she had 1 BM yesterday. Diarrhea has been improving. Objective - Vital Signs Vital signs: Vital Signs Temp 98.5 F 02/12/25 08:00 Pulse 59 L 02/12/25 08:00 Resp 16 02/12/25 08:00 BP 123/75 02/12/25 08:00 Pulse Ox 100 02/12/25 08:00 FiO2 Intake & Output 02/11/25 02/12/25 02/12/25 18:59 06:59 18:59 Intake Total 1080 Balance 1080 Intake: Oral 1080 Other: # Voids 2 3 # Bowel Movements 1 1 - Labs CBC & Chem 7: 02/12/25 13:11 02/12/25 13:11 Labs: Abnormal Lab Results - Last 24 Hours (Table) 02/11/25 02/11/25 02/11/25 Range/Units 08:16 11:54 11:54 WBC 2.77 L (4.50-10.00) 10*3/uL RBC 2.40 L (4.10-5.20) 10*6/uL Hgb 7.8 L (12.0-15.0) g/dL Hct 22.8 L (37.2-46.3) % MCH 32.5 H (27.0-32.0) pg RDW 17.0 H (11.5-14.5) % Plt Count 69 L (140-440) 10*3/uL Immature Gran # 0.12 H (0.00-0.04) 10*3/uL Neutrophils # (1.80-7.70) 10*3/uL Lymphocytes # (0.90-5.00) 10*3/uL Lymphocytes # (Manual) 0.80 L (1.0-4.8) k/uL Eosinophils # (0.04-0.35) 10*3/uL Sodium 128 L (137-145) mmol/L Potassium 3.3 L (3.5-5.1) mmol/L Chloride 95 L (98-107) mmol/L BUN 5 L (7-17) mg/dL Creatinine 0.33 L (0.52-1.04) mg/dL Osmolality 271 L (275-295) mOsm/kg Calcium 8.1 L (8.4-10.2) mg/dL 02/11/25 02/12/25 02/12/25 Range/Units 18:30 05:13 05:13 WBC 2.90 L (4.50-10.00) 10*3/uL RBC 2.24 L (4.10-5.20) 10*6/uL Hgb 7.3 L (12.0-15.0) g/dL Hct 21.3 L (37.2-46.3) % MCH 32.6 H (27.0-32.0) pg RDW 16.7 H (11.5-14.5) % Plt Count 44 L (140-440) 10*3/uL Immature Gran # (0.00-0.04) 10*3/uL Neutrophils # 1.79 L (1.80-7.70) 10*3/uL Lymphocytes # 0.42 L (0.90-5.00) 10*3/uL Lymphocytes # (Manual) (1.0-4.8) k/uL Eosinophils # 0.00 L (0.04-0.35) 10*3/uL Sodium 128 L 128 L (137-145) mmol/L Potassium 3.3 L 3.1 L (3.5-5.1) mmol/L Chloride 94 L 95 L (98-107) mmol/L BUN 4 L 4 L (7-17) mg/dL Creatinine 0.42 L 0.39 L (0.52-1.04) mg/dL Osmolality (275-295) mOsm/kg Calcium 8.1 L (8.4-10.2) mg/dL Microbiology - Last 24 Hours (Table) 02/07/25 00:14 Blood Culture - Final Blood Assessment and Plan Assessment: #. Complicated UTI positive for VRE and nephrolithiasis with 6mm obstructing left UVJ stone without hydronephrosis and moderate fecal content in bowels urology on board, antibiotics by primary team ID consulted #. Pancytopenia: anemia, leukopenia, thrombocytopenia #. Anemia due to chemotherapy Hgb today < 7 at 6.8, type and screen and transfuse with 1 unit of PRBC - no signs of acute bleeding - Monitor for absolute neutrophil count #. History of SCLC, on chemo/immunotherapy, last received C5D1 on 02/02/25 with neulasta biosimilar, Udenyca, given on 02/05/25 #. Positive C. difficile collitis likely secondary to chemotherapy antibiotics by primary team - Recent restaging PET from 01/30/25 images reviewed and compared to prior PET and on my review, she has overall improvement. Liver lesions mentioned have been present and stable on CT portion of prior PET scans including PET from 01/30/25 and doubt concerning for progression at this point. PET results have been discussed with patient and family. - Monitor for chemotoxicity. Patient had follow up appointment scheduled for today with Dr. Moser but was canceled due to this hospitalization. Discussed with patient and about treatment plan going forward. Informed patient that chemotherapy along with antibiotics can be the root cause of her C. difficile. Informed patient that we will discontinue chemotherapy and continue with immunotherapy going forward once cleared from C. difficile. ID following.
[2025-02-12] MEDS: MAGNESIUM SULFATE-D5W PMX 1 GM in DEXTROSE/WATER 1 100ML.BAG IVPB SCH (17:11)
[2025-02-13 05:40] LABS: Basophils # (A) 0.09 10*3/uL (0.00-0.10); Basophils % (A) 1.6 %; Eosinophils # (A) 0.01 10*3/uL (0.04-0.35); Eosinophils % (A) 0.2 %; HCT 22.1 % (37.2-46.3); HGB 7.5 g/dL (12.0-15.0); Immature Platelet Fraction 4.9 % (1.1-6.1); Lymphocytes # (A) 0.83 10*3/uL (0.90-5.00); Lymphocytes % (A) 14.5 %; MCH 32.6 pg (27.0-32.0); MCHC 33.9 g/dL (32.0-37.0); MCV 96.1 fL (80.0-97.0); Monocytes # (A) 1.02 10*3/uL (0.20-1.00); Monocytes % (A) 17.9 %; Neutrophils # (A) 3.69 10*3/uL (1.80-7.70); Neutrophils % (A) 64.6 %; RBC 2.30 10*6/uL (4.10-5.20); RDW 16.8 % (11.5-14.5); WBC 5.71 10*3/uL (4.50-10.00)
[2025-02-13 05:45] LABS: Platelet Count 30 10*3/uL (140-440)
[2025-02-13 05:51] LABS: African American GFR (CKD) >90 (>60 ml/min/1.73 sqM); Anion Gap 5 mmol/L; Blood Urea Nitrogen 4 mg/dL (7-17); Calcium 8.3 mg/dL (8.4-10.2); Carbon Dioxide 29 mmol/L (22-30); Chloride 92 mmol/L (98-107); Glucose 92 mg/dL (74-99); Magnesium 1.8 mg/dL (1.6-2.3); Non-African American GFR(CKD) >90 (>60 ml/min/1.73 sqM); Potassium 3.9 mmol/L (3.5-5.1); Sodium 126 mmol/L (137-145)
[2025-02-13] MEDS: traMADol 50 MG TAB PO PRN (11:07)
--- NOTE | 2025-02-13 14:52 | P.PN ---
Subjective Progress Note Date: 02/13/25 Patient had an elevated HR overnight up to 130s. EKG negative for RVR. Patient denies any new symptoms. Patient mentions improved back pain today. Denies any difficulties using restroom. Objective - Vital Signs Vital signs: Vital Signs Temp 99.7 F H 02/13/25 12:57 Pulse 93 02/13/25 12:57 Resp 15 02/13/25 12:57 BP 128/76 02/13/25 12:57 Pulse Ox 97 02/13/25 12:57 FiO2 Intake & Output 02/12/25 02/13/25 02/13/25 18:59 06:59 18:59 Intake Total 240 60 240 Balance 240 60 240 Weight 49.895 kg Intake: Oral 240 60 240 Other: Voiding Method Toilet Toilet # Voids 2 3 - Exam Gen: In NAD, non-toxic HEENT: normocephalic, atraumatic, hearing acuity is intant, mucous membranes moist CVS: perfusing all extremities well, no pitting edema, slightly tachycardic on exam. Respiratory: symmetric chest expansion, no accessory muscle use, GI: Mild tenderness to abdomen especially to LLQ. No distension. No guarding or rigidity. : No suprapubic tenderness. Bilateral CVA tenderness worse on L side. MSK/Derm: no rashes, cyanosis Neuro: CN II-XII intact, no motor weakness, Psych: cooperative, euthymic mood, judgment and insight is intact - Labs CBC & Chem 7: 02/13/25 05:20 02/13/25 05:20 Labs: Abnormal Lab Results - Last 24 Hours (Table) 02/12/25 02/13/25 02/13/25 Range/Units 13:11 05:20 05:20 RBC 2.30 L (4.10-5.20) 10*6/uL Hgb 7.5 L (12.0-15.0) g/dL Hct 22.1 L (37.2-46.3) % MCH 32.6 H (27.0-32.0) pg RDW 16.8 H (11.5-14.5) % Plt Count 39 L 30 L (140-440) 10*3/uL Immature Gran # 0.07 H (0.00-0.04) 10*3/uL Lymphocytes # 0.73 L 0.83 L (0.90-5.00) 10*3/uL Monocytes # 1.02 H (0.20-1.00) 10*3/uL Eosinophils # 0.00 L 0.01 L (0.04-0.35) 10*3/uL Sodium 126 L (137-145) mmol/L Chloride 92 L (98-107) mmol/L BUN 4 L (7-17) mg/dL Creatinine 0.42 L (0.52-1.04) mg/dL Calcium 8.3 L (8.4-10.2) mg/dL Assessment and Plan Assessment: Data reviewed today: - WBC 5.71, hemoglobin 7.5, sodium 126, potassium 3.9, creatinine 0.42, magnesium 1.8, Morning cortisol 14.6 Assessment/plan: 34-year-old female with A-fib, lung cancer on chemotherapy presenting for sepsis secondary to UTI. Course complicated by C. difficile colitis. Status post left ureteral stent placement. Generalized weakness Complicated UTI with sepsis Nephrolithaisis -Underwent L Cystoscopy and L stent insertion 02/10/2025 -Intermittently febrile -Continue ampicillin 1 g every 4 hours IV, ID following; appreciate continued recommendations -UCx growing E coli and Enterococcus Faecalis -Repeat blood cx ordered by ID clostridium difficile colitis -Continue Vancomycin 125 mg PO QID for 10 days- started 02/10/2025. -continue to monitor stool output Pancytopenia: Anemia, leukopenia, thrombocytopenia -Patient recieved 1 unit of PRBC 02/10/2025. Repeat CBC demonstrates improvement to hgb. Monitor Hgb - Monitor platelets with transfusion threshold of less than 10 given fevers and C. difficile colitis - Monitor for absolute neutrophil count lower than 500 with possible readministration of G-CSF if patient requires, oncology following Intractable right rib pain -Management by as needed Tylenol 650 mg PO Q6HR PRN, Dilaudid 1 mg Q3 -4 hours for severe pain. -Respiratory virus panel negative for COVID influenza and RSV Hyponatremia, euvolemic -Likely due to SIADH -Morning cosyntropin stimulation test ordered given that we cannot currently rule out adrenal insufficiency - Patient was previously on normal saline at 130 cc an hour, currently discontinued - TSH 1.4 - Morning cortisol 14.6 - Fluid restricted diet (1200mL) Hypomagnesemia (resolved) -continue to monitor and replete as needed Hypokalemia (resolved) -Continue to monitor and replete as needed Full code DVT prophylaxis: Pneumatic compression sleeves Disposition: Pending clinical course I have seen and evaluated the patient today. Discussed with the resident and agree with the residents finding and plan as documented in the resident's note. Changes highlighted in blue font.
--- NOTE | 2025-02-13 15:50 | P.PN ---
Subjective Progress Note Date: 02/13/25 Principal diagnosis: Reason for follow-up is complicated UTI and C. 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 coli Enterococcus also developed C. difficile colitis prompting this consultation. On today's evaluation that is 02/13/2025, the patient is running a low-grade fever 100.3-99.7, patient has been complaining some stomach upset from di scomfort but denies having any nausea vomiting or any worsening diarrhea no chest pain shortness of breath or cough patient white count normalized to 5.7, creatinine 0.42 blood culture obtained from yesterday so far negative Objective - Vital Signs Vital signs: Vital Signs Temp 99.7 F H 02/13/25 12:57 Pulse 93 02/13/25 12:57 Resp 15 02/13/25 12:57 BP 128/76 02/13/25 12:57 Pulse Ox 97 02/13/25 12:57 FiO2 Intake & Output 02/12/25 02/13/25 02/13/25 18:59 06:59 18:59 Intake Total 240 60 462 Balance 240 60 462 Weight 49.895 kg Intake: Oral 240 60 462 Other: Voiding Method Toilet Toilet # Voids 2 3 - Exam GENERAL DESCRIPTION: An elderly female lying in bed in no distress RESPIRATORY SYSTEM: Unlabored breathing , decreased breath sounds at bases HEART: S1 S2 regular rate and rhythm , ABDOMEN: Soft , no tenderness EXTREMITIES: No edema feet - Labs CBC & Chem 7: 02/13/25 05:20 02/13/25 05:20 Labs: Abnormal Lab Results - Last 24 Hours (Table) 02/13/25 02/13/25 Range/Units 05:20 05:20 RBC 2.30 L (4.10-5.20) 10*6/uL Hgb 7.5 L (12.0-15.0) g/dL Hct 22.1 L (37.2-46.3) % MCH 32.6 H (27.0-32.0) pg RDW 16.8 H (11.5-14.5) % Plt Count 30 L (140-440) 10*3/uL Immature Gran # 0.07 H (0.00-0.04) 10*3/uL Lymphocytes # 0.83 L (0.90-5.00) 10*3/uL Monocytes # 1.02 H (0.20-1.00) 10*3/uL Eosinophils # 0.01 L (0.04-0.35) 10*3/uL Sodium 126 L (137-145) mmol/L Chloride 92 L (98-107) mmol/L BUN 4 L (7-17) mg/dL Creatinine 0.42 L (0.52-1.04) mg/dL Calcium 8.3 L (8.4-10.2) mg/dL Assessment and Plan (1) C. difficile colitis Current Visit: Yes Status: Acute Code(s): A04.72 - ENTEROCOLITIS D/T CLOSTRIDIUM DIFFICILE, NOT SPCF RECUR SNOMED Code(s): 426965034 (2) Sepsis Current Visit: Yes Status: Acute Code(s): A41.9 - SEPSIS, UNSPECIFIED ORGANISM SNOMED Code(s): 03090624 (3) UTI (urinary tract infection) Current Visit: Yes Status: Acute Code(s): N39.0 - URINARY TRACT INFECTION, SITE NOT SPECIFIED SNOMED Code(s): 52175811 Plan: 1patient with initial presentation to the hospital with sepsis in this patient who did have complicated UTI with left-sided ureteral stone requiring cystoscopy and left ureteral stent placement with urine culture showing E. coli and Enterococcus which is VRE however sensitive to ampicillin. 2patient clinical course also complicated by development of diarrhea and stool for C. difficile is positive that would complicate her overall treatment for complicated UTI 3-patient currently being treated with ampicillin which should cover for both E. coli Enterococcus however to decrease the burden of antibiotics we will switch ampicillin to oral amoxicillin and the patient oral vancomycin will be increased 250 mg every 6 hours for C. difficile colitis will add Questran for symptomatic relief Question concern answered Dictation was produced using [employer] software. please excuse any grammatical, word or spelling errors.
[2025-02-13] MEDS: AMOXICILLIN 500 MG CAP PO SCH (16:38)
[2025-02-13] MEDS ORDERED: VANCOMYCIN ORAL SOLUTION 250 MG/5 ML BOTTLE PO SCH (18:00)
[2025-02-13] MEDS: VANCOMYCIN 125 MG CAPSULE PO SCH (18:25)
[2025-02-13] MEDS: CHOLESTYRAMINE RESIN 4 GM PACKET PO SCH (21:48)
[2025-02-14] MEDS: COSYNTROPIN 0.25 MG VIAL IVP ONE (04:55)
[2025-02-14 05:20] LABS: African American GFR (CKD) >90 (>60 ml/min/1.73 sqM); Anion Gap 5 mmol/L; Blood Urea Nitrogen 6 mg/dL (7-17); Calcium 8.4 mg/dL (8.4-10.2); Carbon Dioxide 28 mmol/L (22-30); Chloride 91 mmol/L (98-107); Glucose 89 mg/dL (74-99); Non-African American GFR(CKD) >90 (>60 ml/min/1.73 sqM); Potassium 4.2 mmol/L (3.5-5.1); Sodium 124 mmol/L (137-145)
[2025-02-14 06:29] LABS: Basophils # (A) 0.01 10*3/uL (0.00-0.10); Basophils % (A) 0.1 %; Eosinophils # (A) 0.02 10*3/uL (0.04-0.35); Eosinophils % (A) 0.2 %; HCT 23.0 % (37.2-46.3); HGB 7.7 g/dL (12.0-15.0); Immature Platelet Fraction 6.8 % (1.1-6.1); Lymphocytes # (A) 1.10 10*3/uL (0.90-5.00); Lymphocytes % (A) 11.4 %; MCH 32.6 pg (27.0-32.0); MCHC 33.5 g/dL (32.0-37.0); MCV 97.5 fL (80.0-97.0); Monocytes # (A) 1.41 10*3/uL (0.20-1.00); Monocytes % (A) 14.6 %; Neutrophils # (A) 6.86 10*3/uL (1.80-7.70); Neutrophils % (A) 71.0 %; RBC 2.36 10*6/uL (4.10-5.20); RDW 17.2 % (11.5-14.5); WBC 9.66 10*3/uL (4.50-10.00)
[2025-02-14 06:35] LABS: Platelet Count 20 10*3/uL (140-440)
[2025-02-14] MEDS: SODIUM CHLORIDE 0.9% 500 ML 500 ML IV ONE (11:55)
[2025-02-14] MEDS: IOPAMIDOL CONTRAST (ORAL USE) VIAL PO PRN (14:31)
[2025-02-14 14:33] LABS: African American GFR (CKD) >90 (>60 ml/min/1.73 sqM); Anion Gap 7 mmol/L; Blood Urea Nitrogen 8 mg/dL (7-17); Calcium 8.5 mg/dL (8.4-10.2); Carbon Dioxide 27 mmol/L (22-30); Chloride 92 mmol/L (98-107); Glucose 110 mg/dL (74-99); Non-African American GFR(CKD) >90 (>60 ml/min/1.73 sqM); Potassium 4.3 mmol/L (3.5-5.1); Sodium 126 mmol/L (137-145)
--- NOTE | 2025-02-14 15:20 | P.PN ---
Subjective Progress Note Date: 02/14/25 Principal diagnosis: Reason for follow-up is complicated UTI and C. 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 coli Enterococcus also developed C. difficile colitis prompting this consultation. On today's evaluation that is 02/15/2024, patient did have temperature of 101 F at 1 AM patient is afebrile this afternoon patient denies having any chest pain shortness of breath or cough she did have a abdominal pain especially after having a meal did have 1 BM this morning. The patient white count is 9.66 creatinine 0.48, blood pressure remains to be negative Objective - Vital Signs Vital signs: Vital Signs Temp 98.4 F 02/14/25 12:31 Pulse 107 H 02/14/25 12:31 Resp 16 02/14/25 12:31 BP 113/70 02/14/25 12:31 Pulse Ox 97 02/14/25 12:31 FiO2 Intake & Output 02/13/25 02/14/25 02/14/25 18:59 06:59 18:59 Intake Total 462 480 958 Balance 462 480 958 Intake: Oral 462 480 958 Other: Voiding Method Toilet # Voids 4 1 # Bowel Movements 1 - Exam GENERAL DESCRIPTION: An elderly female lying in bed in no distress RESPIRATORY SYSTEM: Unlabored breathing , decreased breath sounds at bases HEART: S1 S2 regular rate and rhythm , ABDOMEN: Soft , no tenderness EXTREMITIES: No edema feet - Labs CBC & Chem 7: 02/14/25 06:00 02/14/25 14:00 Labs: Abnormal Lab Results - Last 24 Hours (Table) 02/14/25 02/14/25 02/14/25 Range/Units 05:00 05:30 06:00 RBC 2.36 L (4.10-5.20) 10*6/uL Hgb 7.7 L (12.0-15.0) g/dL Hct 23.0 L (37.2-46.3) % MCV 97.5 H (80.0-97.0) fL MCH 32.6 H (27.0-32.0) pg RDW 17.2 H (11.5-14.5) % Plt Count 20 L (140-440) 10*3/uL MPV 12.3 H (9.5-12.2) fL Immature Gran # 0.26 H (0.00-0.04) 10*3/uL Monocytes # 1.41 H (0.20-1.00) 10*3/uL Eosinophils # 0.02 L (0.04-0.35) 10*3/uL Immature Plt Fraction 6.8 H (1.1-6.1) % Sodium 124 L (137-145) mmol/L Chloride 91 L (98-107) mmol/L BUN 6 L (7-17) mg/dL Creatinine 0.44 L (0.52-1.04) mg/dL Glucose (74-99) mg/dL Cortisol 37.4 H (3.1-22.4) UG/DL 02/14/25 02/14/25 Range/Units 06:00 14:00 RBC (4.10-5.20) 10*6/uL Hgb (12.0-15.0) g/dL Hct (37.2-46.3) % MCV (80.0-97.0) fL MCH (27.0-32.0) pg RDW (11.5-14.5) % Plt Count (140-440) 10*3/uL MPV (9.5-12.2) fL Immature Gran # (0.00-0.04) 10*3/uL Monocytes # (0.20-1.00) 10*3/uL Eosinophils # (0.04-0.35) 10*3/uL Immature Plt Fraction (1.1-6.1) % Sodium 126 L (137-145) mmol/L Chloride 92 L (98-107) mmol/L BUN (7-17) mg/dL Creatinine 0.48 L (0.52-1.04) mg/dL Glucose 110 H (74-99) mg/dL Cortisol 47.6 H (3.1-22.4) UG/DL Microbiology - Last 24 Hours (Table) 02/12/25 16:12 Blood Culture - Preliminary Blood Assessment and Plan (1) C. difficile colitis Current Visit: Yes Status: Acute Code(s): A04.72 - ENTEROCOLITIS D/T CLOSTRIDIUM DIFFICILE, NOT SPCF RECUR SNOMED Code(s): 989472432 (2) Sepsis Current Visit: Yes Status: Acute Code(s): A41.9 - SEPSIS, UNSPECIFIED ORGANISM SNOMED Code(s): 75844286 (3) UTI (urinary tract infection) Current Visit: Yes Status: Acute Code(s): N39.0 - URINARY TRACT INFECTION, SITE NOT SPECIFIED SNOMED Code(s): 88013510 Plan: 1patient with initial presentation to the hospital with sepsis in this patient who did have complicated UTI with left-sided ureteral stone requiring cystoscopy and left ureteral stent placement with urine culture showing E. coli and Enteroc occus which is VRE however sensitive to ampicillin. 2patient clinical course also complicated by development of diarrhea and stool for C. difficile is positive that would complicate her overall treatment for complicated UTI 3-patient currently being treated with ampicillin which should cover for both E. coli Enterococcus however to decrease the burden of antibiotics patient currently on oral amoxicillin for the complicated UTI and the patient oral vancomycin 250 mg every 6 hours for C. difficile colitis along with Questran for symptomatic relief Keeping in mind the patient did have persistent fever and tachycardia along with abdominal pain CT abdominal pelvis has been discussed with the resident physician to ensure no evidence of any complication associated with the C. difficile colitis Dictation was produced using [employer] dictation software. please excuse any grammatical, word or spelling errors. Time with Patient: Less than 30
--- NOTE | 2025-02-14 15:39 | P.PN ---
Subjective Progress Note Date: 02/14/25 Principal diagnosis: Patient mentions some worse band like abdominal pain today. Mentions continued diarrhea (patient estimates 5 stools and 4 urinations since yesterday). Denies nausea, vomiting, or dysuria. Objective - Vital Signs Vital signs: Vital Signs Temp 98.4 F 02/14/25 12:31 Pulse 107 H 02/14/25 12:31 Resp 16 02/14/25 12:31 BP 113/70 02/14/25 12:31 Pulse Ox 97 02/14/25 12:31 FiO2 Intake & Output 02/13/25 02/14/25 02/14/25 18:59 06:59 18:59 Intake Total 462 480 958 Balance 462 480 958 Intake: Oral 462 480 958 Other: Voiding Method Toilet # Voids 4 1 # Bowel Movements 1 - Exam Gen: In NAD, non-toxic HEENT: normocephalic, atraumatic, hearing acuity is intant, mucous membranes moist CVS: perfusing all extremities well, no pitting edema, slightly tachycardic on exam. Respiratory: symmetric chest expansion, no accessory muscle use, GI: Tenderness to abdomen diffusely. No distension. No guarding or rigidity. : No suprapubic tenderness. MSK/Derm: no rashes, cyanosis Neuro: CN II-XII intact, no motor weakness, Psych: cooperative, euthymic mood, judgment and insight is intact - Labs CBC & Chem 7: 02/14/25 06:00 02/14/25 14:00 Labs: Abnormal Lab Results - Last 24 Hours (Table) 02/14/25 02/14/25 02/14/25 Range/Units 05:00 05:30 06:00 RBC 2.36 L (4.10-5.20) 10*6/uL Hgb 7.7 L (12.0-15.0) g/dL Hct 23.0 L (37.2-46.3) % MCV 97.5 H (80.0-97.0) fL MCH 32.6 H (27.0-32.0) pg RDW 17.2 H (11.5-14.5) % Plt Count 20 L (140-440) 10*3/uL MPV 12.3 H (9.5-12.2) fL Immature Gran # 0.26 H (0.00-0.04) 10*3/uL Monocytes # 1.41 H (0.20-1.00) 10*3/uL Eosinophils # 0.02 L (0.04-0.35) 10*3/uL Immature Plt Fraction 6.8 H (1.1-6.1) % Sodium 124 L (137-145) mmol/L Chloride 91 L (98-107) mmol/L BUN 6 L (7-17) mg/dL Creatinine 0.44 L (0.52-1.04) mg/dL Glucose (74-99) mg/dL Cortisol 37.4 H (3.1-22.4) UG/DL 02/14/25 02/14/25 Range/Units 06:00 14:00 RBC (4.10-5.20) 10*6/uL Hgb (12.0-15.0) g/dL Hct (37.2-46.3) % MCV (80.0-97.0) fL MCH (27.0-32.0) pg RDW (11.5-14.5) % Plt Count (140-440) 10*3/uL MPV (9.5-12.2) fL Immature Gran # (0.00-0.04) 10*3/uL Monocytes # (0.20-1.00) 10*3/uL Eosinophils # (0.04-0.35) 10*3/uL Immature Plt Fraction (1.1-6.1) % Sodium 126 L (137-145) mmol/L Chloride 92 L (98-107) mmol/L BUN (7-17) mg/dL Creatinine 0.48 L (0.52-1.04) mg/dL Glucose 110 H (74-99) mg/dL Cortisol 47.6 H (3.1-22.4) UG/DL Microbiology - Last 24 Hours (Table) 02/12/25 16:12 Blood Culture - Preliminary Blood Assessment and Plan Assessment: Data reviewed today: - WBC 9.66, hemoglobin 7.7, sodium 126, potassium 4.3, creatinine 0.48 Assessment/plan: 34-year-old female with A-fib, lung cancer on chemotherapy presenting for sepsis secondary to UTI. Course complicated by C. difficile colitis. Status post left ureteral stent placement. Generalized weakness Complicated UTI with sepsis Nephrolithaisis -Underwent L Cystoscopy and L stent insertion 02/10/2025 -Continues to be intermittently febrile -Antibiotics switched to oral amoxicillin 500 mg PO Q8Hr per ID recs -UCx growing E coli and Enterococcus Faecalis -Repeat blood cx negative -Repeat CT abd/pelvis with contrast ordered due to patient's continued fevers, diarrhea, and abdominal pain (consulted with ID who agrees) -ID ordered questran 4 mg PO BID for symptomatic relief clostridium difficile colitis -Vancomycin dose increased to 250 mg PO Q6H per ID recs. Patient started vanc on 02/10/2025. -continue to monitor stool output Pancytopenia: Anemia, leukopenia, thrombocytopenia -Patient recieved 1 unit of PRBC 02/10/2025. Repeat CBC demonstrates improvement to hgb. Monitor Hgb - Monitor platelets with transfusion threshold of less than 10 given fevers and C. difficile colitis - Monitor for absolute neutrophil count lower than 500 with possible readministration of G-CSF if patient requires, oncology following Intractable right rib pain -Management by as needed Tylenol 650 mg PO Q6HR PRN, Dilaudid 1 mg Q3 -4 hours for severe pain. -Respiratory virus panel negative for COVID influenza and RSV Hyponatremia, euvolemic -Likely due to SIADH -Morning cosyntropin stimulation test indicates that adrenal insufficiency is unlikely -500 cc NS challenge with repeat BMP for afternoon ordered -Nephrology consulted; appreciate recommendations -TSH 1.4 -Fluid restricted diet (1200mL) Hypomagnesemia (resolved) -continue to monitor and replete as needed Hypokalemia (resolved) -Continue to monitor and replete as needed Full code DVT prophylaxis: Pneumatic compression sleeves Disposition: Pending clinical course I have seen and evaluated the patient today. Discussed with the resident and agree with the residents finding and plan as documented in the resident's note. Changes highlighted in blue font.
[2025-02-14] MEDS: SODIUM CHLORIDE 0.9% 1,000 ML IV SCH (17:00)
--- NOTE | 2025-02-14 17:07 | CT ---
EXAMINATION TYPE: CT abdomen pelvis w con DATE OF EXAM: 02/14/2025 4:25 PM COMPARISON: 01/30/2025 percent CLINICAL INDICATION: Female, 74 years old with history of Continued fevers, diarrhea, worse abomdinal pain; abdominal pain, diarrhea, fever TECHNIQUE: Axial CT abdomen pelvis w con;Sagittal and coronal reformats were created on a separate w orkstation. Contrast used:100ml mL of Isovue 300 with IV Contrast, (none if empty) Oral contrast used: with Oral Contrast (none if empty) CT DLP: 409.4 mGycm, Automated exposure control for dose reduction was used. FINDINGS: LOWER CHEST: Unremarkable right lower lobe pleural-based consolidation which is masslike measuring 22 x 15 mm. Trace right pleural effusion. ABDOMEN LIVER: Scattered hepatic lesions as seen on prior imaging. These are FDG avid. GALLBLADDER AND BILE DUCTS: Unremarkable. PANCREAS: Unremarkable. SPLEEN: Unremarkable. ADRENAL GLANDS: Unremarkable. KIDNEYS AND URETERS: No evidence of hydronephrosis or obstructing renal calculus. The ureters are unr emarkable. Left ureteral stent which is in appropriate position. Nonobstructing right renal calcul i measuring up to 6 mm. PELVIS BLADDER: No evidence for wall thickening or mass given limitations of exam. REPRODUCTIVE: Unremarkable. ABDOMEN & PELVIS STOMACH AND BOWEL: No evidence of bowel obstruction. Circumferential wall thickening throughout the c olon with fat stranding hyperemia. PERITONEUM/RETROPERITONEUM: No evidence of pneumoperitoneum. Trace free fluid in the pelvis. VASCULATURE: Moderate atherosclerotic calcifications are present throughout the abdominal aorta and i ts branches. No evidence of aortic aneurysm. MUSCULOSKELETAL: No acute osseous abnormalities. Mild disc degeneration changes are present throughou t the thoracolumbar spine. LYMPH NODES: No gross evidence for lymphadenopathy. SOFT TISSUE/ABDOMINAL WALL: Unremarkable IMPRESSION: 1. Pancolitis correlate for Typhlitis findings have slightly progressed compared to prior on 02/08/20. 2. No evidence for perforation. 3. Regular lobe mass and likely metastatic disease throughout the liver again redemonstrated. 4. Free fluid in the pelvis which is indeterminate possibly reactive to the active inflammation seen throughout the abdomen. 5. Left ureteral stent which is in appropriate position. 6. Nonobstructing right renal calculus. [facility], , 02/14/2025 5:05 PM
[2025-02-14] MEDS: metroNIDAZOLE-NS PMX 500 MG in SALINE 1 100ML.BAG IVPB SCH (23:50)
[2025-02-14] MEDS: VANCOMYCIN 125 MG CAPSULE PO SCH (23:51)
[2025-02-14] MEDS ORDERED: VANCOMYCIN 125 MG CAPSULE PO ONE (23:59)
[2025-02-15 08:35] LABS: African American GFR (CKD) >90 (>60 ml/min/1.73 sqM); Anion Gap 4 mmol/L; Blood Urea Nitrogen 6 mg/dL (7-17); Calcium 8.5 mg/dL (8.4-10.2); Carbon Dioxide 27 mmol/L (22-30); Chloride 96 mmol/L (98-107); Glucose 104 mg/dL (74-99); HCT 21.6 % (37.2-46.3); HGB 7.3 g/dL (12.0-15.0); MCH 32.4 pg (27.0-32.0); MCHC 33.8 g/dL (32.0-37.0); MCV 96.0 fL (80.0-97.0); Magnesium 1.4 mg/dL (1.6-2.3); Non-African American GFR(CKD) >90 (>60 ml/min/1.73 sqM); Potassium 4.1 mmol/L (3.5-5.1); RBC 2.25 10*6/uL (4.10-5.20); RDW 17.1 % (11.5-14.5); Sodium 127 mmol/L (137-145); WBC 11.15 10*3/uL (4.50-10.00)
[2025-02-15 10:41] LABS: Eosinophils # (M) 0.11 k/uL (0-0.7); Lymphocytes # (M) 0.67 k/uL (1.0-4.8); Monocytes # (M) 0.22 k/uL (0-1.0); Neutrophils # (M) 10.37 k/uL (1.3-7.7); Neutrophils % (M) 93 %; Total Cells Counted 200
[2025-02-15 10:42] LABS: Platelet Count 16 10*3/uL (140-440)
--- NOTE | 2025-02-15 11:14 | P.NPCON ---
History of Present Illness - Reason for Consult hyponatremia - History of Present Illness Reason for consultation: Hyponatremia History of present illness: Patient is a 74-year-old female seen in new consultation for hyponatremia. Patient sodium level on admission dated February 06, 2025 was 134 and improved to 136 on February 09, 2025. Since then has been progressively decreasing and was down to 124 February 14, 2025. It is up to 127 today. Patient came to the hospital due to generalized weakness. Patient does have history of small cell lung cancer and finished a round of chemotherapy on February 04, 2025. Her oral intake has been poor. She was also found to have left-sided kidney stone and underwent cysto scopy with left stent insertion February 10, 2025. She is on antibiotics for UTI. Denies excessive fluid intake. Denies use of thiazide diuretics. She did test positive for C. difficile and continues to have diarrhea. She was started on IV fluids yesterday. No gross hematuria or dysuria. Hemodynamically stable. Vital signs are stable. General: No acute distress. HEENT: Head exam is unremarkable. LUNGS: No audible rhonchi or wheezes. HEART: Rate and Rhythm are regular. ABDOMEN: Nontender. EXTREMITITES: No edema. Past Medical History Past Medical History: Atrial Fibrillation, Cancer, Eye Disorder, GERD/Reflux, Hypertension, Pneumonia Additional Past Medical History / Comment(s): hx migraines, ABD PAIN, HEMORRHOIDS, optic nerve damage tatiana eyes-impaired vision, pleural effusion & pericardial effusion May 2024, lung ca diagnosed Aug 2024- 5 rounds of chemo so far, one radiation tx History of Any Multi-Drug Resistant Organisms: None Reported, VRE Date of last positivie culture/infection: 02/07/25 MDRO Source:: urine Past Surgical History: Breast Surgery Additional Past Surgical History / Comment(s): left breast lumpectomy x 2 "precancerous", colonoscopy, EGD, bronchoscopy, thoracoscopy; right subclavian port Past Anesthesia/Blood Transfusion Reactions: No Reported Reaction, Family History of Problems w/ Anesthesia Additional Past Anesthesia/Blood Transfusion Reaction / Comment(s): daughter has hard time coming out of anesthesia Past Psychological History: Depression Smoking Status: Former smoker Past Alcohol Use History: Rare Additional Past Alcohol Use History / Comment(s): quit smoking 2023; smoked on and off since age 23 Past Drug Use History: None Reported - Past Family History Brother(s) Family Medical History: Pulmonary Embolus Mother Family Medical History: Memory Impairment Additional Family Medical History / Comment(s): from Alzheimer's. Father Additional Family Medical History / Comment(s): from unknown cause, possibly his heart. Medications and Allergies Home Medications Medication Instructions Recorded Confirmed Type Ondansetron [Zofran] 4 - 8 mg PO Q4H PRN 11/29/24 02/07/25 History Acetaminophen Tab [Tylenol] 650 mg PO Q6HR PRN tab 12/09/24 02/07/25 Rx Loperamide [Imodium] 2 mg PO Q2HR PRN cap 12/09/24 02/07/25 Rx Magnesium Oxide [Mag-Ox] 400 mg PO DAILY #7 tab 12/09/24 02/07/25 Rx Prochlorperazine [Compazine] 10 mg PO Q6H PRN #30 tab 12/09/24 02/07/25 Rx Omeprazole Magnesium [PriLOSEC OTC] 20 mg PO DAILY 12/30/24 02/07/25 History traMADol HCL 50 mg PO Q6H PRN 30 Days #90 tab 01/15/25 02/07/25 Rx Potassium Chloride ER [K-Dur 20] 20 meq PO DAILY 01/20/25 02/07/25 History HYDROcodone/APAP 10-325MG [[place] 1 tab PO TID PRN 02/07/25 02/07/25 History 10-325] Multivit-Min/Iron/Folic/Lutein 1 tab PO DAILY 02/07/25 02/07/25 History [Centrum Silver Women Tablet] Allergies Allergy/AdvReac Type Severity Reaction Status Date / Time cyclobenzaprine AdvReac Confusion Verified 02/12/25 12:44 [From Flexeril] Physical Exam Vitals: Vital Signs Temp Pulse Resp BP BP Pulse Ox 02/15/25 07:01 98.5 F 116 H 16 126/75 96 02/15/25 02:00 97.9 F 100 16 108/66 98 02/14/25 20:00 98 F 112 H 16 119/79 98 02/14/25 12:31 98.4 F 107 H 16 113/70 97 Intake and Output 02/14/25 02/15/25 02/15/25 22:59 06:59 14:59 Intake Total 125 240 Balance 125 240 Intake: Oral 125 240 Other: # Voids 2 3 # Bowel Movements 4 Results - Lab Results Most recent lab results Calcium 8.5 mg/dL (8.4-10.2) 02/15/25 07:50 Magnesium 1.4 mg/dL (1.6-2.3) L 02/15/25 07:50 02/15/25 07:50 02/15/25 07:50 Assessment and Plan Plan: Assessment: 1. Hyponatremia, hypovolemic. Better with IV fluids. 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 Cosyntropin stimulation test was negative. Urine sodium 82 and urine osmolality 238. TSH normal. 2. Small cell lung cancer. 3. Hypomagnesemia from GI losses. 4. C. difficile colitis on oral vancomycin. 5. UTI on antibiotics. 6. Left ureteral stone status post cystoscopy with stent insertion February 10, 2025. Plan: Maintain normal saline. Replace magnesium. Add urea. Encouraged oral intake. Maintain fluid restriction. Repeat labs in the morning. Thank you for the consultation. I will continue to follow the patient with you during her hospital stay.
[2025-02-15] MEDS: MAGNESIUM SULFATE-D5W PMX 1 GM in DEXTROSE/WATER 1 100ML.BAG IVPB SCH (11:39)
[2025-02-15] MEDS ORDERED: VANCOMYCIN 125 MG CAPSULE PO ONE (12:00)
--- NOTE | 2025-02-15 12:24 | P.PN ---
Subjective Progress Note Date: 02/15/25 Subjective: Patient seen and examined at bedside. No acute events overnight. Continues to have abdominal pain with frequent bowel movements. She had about 4 bowel movements since midnight. No new fevers overnight. Pertinent positives and negatives as discussed above, a complete review of s ystems was performed and all other systems are negative. Vitals Signs Reviewed. General: Nontoxic, no distress, chronically ill-appearing Derm: Warm, dry Head: Atraumatic, normocephalic, symmetric Eyes: EOMI, no lid lag, anicteric sclera Mouth: No lip lesion, mucus membranes moist Cardiovascular: S1S2 reg, no murmur Lungs: CTA bilateral, no rhonchi, no rales, no accessory muscle use Abdominal: Soft, mild tenderness to palpation diffusely throughout abdomen, no guarding, no appreciable organomegaly Ext: No gross muscle atrophy, no edema, no contractures Neuro: CN II-XI grossly intact, no focal neuro deficits Psych: Alert, oriented, appropriate affect Data Reviewed Today: Pertinent Labs: WBC 11.15, hemoglobin 7.3, platelets 16, sodium 127, creatinine 0.58, magnesium 1.4 Imaging: CT abdomen pelvis showed pancolitis correlate for typhilitis, metastatic liver disease, free fluid in the pelvis, left ureteral stent, nonobstructive right renal calculus. Assessment and Plan: Active: Sepsis secondary to infected nephrolithiasis status post ureteral stent C. difficile colitis Pancolitis, likely neutropenic enterocolitis with persistent intermittent fevers Pancytopenia, WBC improved - ID following - Patient continued on amoxicillin 500 p.o. every 8 hours - Patient started on IV Flagyl 500 every 8 hours, also continued on oral vancomycin 500 every 6 hours - Also on Questran 4 g twice daily Persistent hyponatremia, component of hypovolemia and SIADH - Nephrology following - Continue normal saline 75 cc an hour - Nephrology started patient on 15 g twice daily urea - Continue to monitor BMP Hypomagnesemia - 2 g of IV magnesium sulfate given today - Repeat levels tomorrow Chronic: Lung cancer on chemotherapy-oncology following Atrial fibrillation, not on anticoagulation DVT ppx: Not indicated Code status: Full code Anticipated discharge place: Pending clinical course Anticipated discharge time: Pending clinical course Objective - Vital Signs Vital signs: Vital Signs Temp 98.5 F 02/15/25 07:01 Pulse 116 H 02/15/25 07:01 Resp 16 02/15/25 07:01 BP 126/75 02/15/25 07:01 Pulse Ox 96 02/15/25 07:01 FiO2 Intake & Output 02/14/25 02/15/25 02/15/25 18:59 06:59 18:59 Intake Total 1083 240 355 Balance 1083 240 355 Intake: Oral 1083 240 355 Other: # Voids 2 3 # Bowel Movements 4 - Labs CBC & Chem 7: 02/15/25 07:50 02/15/25 07:50 Labs: Abnormal Lab Results - Last 24 Hours (Table) 02/14/25 02/15/25 02/15/25 Range/Units 14:00 07:50 07:50 WBC 11.15 H (4.50-10.00) 10*3/uL RBC 2.25 L (4.10-5.20) 10*6/uL Hgb 7.3 L (12.0-15.0) g/dL Hct 21.6 L (37.2-46.3) % MCH 32.4 H (27.0-32.0) pg RDW 17.1 H (11.5-14.5) % Plt Count 16 L* (140-440) 10*3/uL Immature Gran # 0.65 H (0.00-0.04) 10*3/uL Neutrophils # (Manual) 10.37 H (1.3-7.7) k/uL Lymphocytes # (Manual) 0.67 L (1.0-4.8) k/uL Nucleated RBCs 1 H (0-0) /100 WBC Sodium 126 L 127 L (137-145) mmol/L Chloride 92 L 96 L (98-107) mmol/L BUN 6 L (7-17) mg/dL Creatinine 0.48 L (0.52-1.04) mg/dL Glucose 110 H 104 H (74-99) mg/dL Magnesium 1.4 L (1.6-2.3) mg/dL Microbiology - Last 24 Hours (Table) 02/12/25 16:12 Blood Culture - Preliminary Blood
[2025-02-15] MEDS: UREA 15 GM POWD.PACK PO SCH (12:55)
--- NOTE | 2025-02-15 16:44 | P.PN ---
Subjective Progress Note Date: 02/15/25 Principal diagnosis: Reason for follow-up is complicated UTI and C. 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 coli Enterococcus also developed C. difficile colitis prompting this consultation. On today's evaluation that is 02/15/2025, Patient did have resolution of the fever the patient is is afebrile patient is currently on room air and denies having any shortness of breath, the patient denies any chest pain or cough, the patient denies any nausea vomiting mention improvement abdominal pain and diarrhea has slowed down. Patient white count is 11.15 creatinine 0.58 Objective - Vital Signs Vital signs: Vital Signs Temp 98.2 F 02/15/25 12:58 Pulse 110 H 02/15/25 12:58 Resp 18 02/15/25 12:58 BP 131/74 02/15/25 12:58 Pulse Ox 98 02/15/25 12:58 FiO2 Intake & Output 02/14/25 02/15/25 02/15/25 18:59 06:59 18:59 Intake Total 1083 240 355 Balance 1083 240 355 Intake: Oral 1083 240 355 Other: # Voids 2 3 # Bowel Movements 4 - Exam GENERAL DESCRIPTION: An elderly female lying in bed in no distress RESPIRATORY SYSTEM: Unlabored breathing , decreased breath sounds at bases HEART: S1 S2 regular rate and rhythm , ABDOMEN: Soft , no tenderness EXTREMITIES: No edema feet - Labs CBC & Chem 7: 02/15/25 07:50 02/15/25 07:50 Labs: Abnormal Lab Results - Last 24 Hours (Table) 02/14/25 02/15/25 02/15/25 Range/Units 14:00 07:50 07:50 WBC 11.15 H (4.50-10.00) 10*3/uL RBC 2.25 L (4.10-5.20) 10*6/uL Hgb 7.3 L (12.0-15.0) g/dL Hct 21.6 L (37.2-46.3) % MCH 32.4 H (27.0-32.0) pg RDW 17.1 H (11.5-14.5) % Plt Count 16 L* (140-440) 10*3/uL Immature Gran # 0.65 H (0.00-0.04) 10*3/uL Neutrophils # (Manual) 10.37 H (1.3-7.7) k/uL Lymphocytes # (Manual) 0.67 L (1.0-4.8) k/uL Nucleated RBCs 1 H (0-0) /100 WBC Sodium 126 L 127 L (137-145) mmol/L Chloride 92 L 96 L (98-107) mmol/L BUN 6 L (7-17) mg/dL Creatinine 0.48 L (0.52-1.04) mg/dL Glucose 110 H 104 H (74-99) mg/dL Magnesium 1.4 L (1.6-2.3) mg/dL Microbiology - Last 24 Hours (Table) 02/12/25 16:12 Blood Culture - Preliminary Blood Assessment and Plan (1) C. difficile colitis Current Visit: Yes Status: Acute Code(s): A04.72 - ENTEROCOLITIS D/T CLOSTRIDIUM DIFFICILE, NOT SPCF RECUR SNOMED Code(s): 955368474 (2) Sepsis Current Visit: Yes Status: Acute Code(s): A41.9 - SEPSIS, UNSPECIFIED ORGANISM SNOMED Code(s): 41671839 (3) UTI (urinary tract infection) Current Visit: Yes Status: Acute Code(s): N39.0 - URINARY TRACT INFECTION, SITE NOT SPECIFIED SNOMED Code(s): 59289486 Plan: 1patient with initial presentation to the hospital with sepsis in this patient who did have complicated UTI with left-sided ureteral stone requiring cystoscopy and left ureteral stent placement with urine culture showing E. coli and Enterococcus which is VRE however sensitive to ampicillin. 2patient clinical course also complicated by development of diarrhea and stool for C. difficile is positive that would complicate her overall treatment for complicated UTI 3-patient has received adequate antibiotic therapy for E. coli Enterococcus UTI we will go ahead and discontinue oral amoxicillin 4patient did have evidence of severe C. difficile colitis on the basis of CT findings oral vancomycin was increased to 500 mg daily and IV Flagyl has been added to continue and monitor clinical course closely Dictation was produced using [employer] dictation software. please excuse any gramm atical, word or spelling errors. Time with Patient: Less than 30
[2025-02-16] MEDS ORDERED: VANCOMYCIN 125 MG CAPSULE PO ONE (00:10)
[2025-02-16 08:34] LABS: Anion Gap 8.10 mmol/L (4.00-12.00); BUN/Creat Ratio 32.00 Ratio (12.00-20.00); Blood Urea Nitrogen 16.0 mg/dL (9.0-27.0); Carbon Dioxide 25.9 mmol/L (21.6-31.8); Chloride 96 mmol/L (96-109); Glucose 95 mg/dL (70-110); Potassium 3.8 mmol/L (3.5-5.5); Sodium 130 mmol/L (135-145)
[2025-02-16 08:35] LABS: Calcium 7.9 mg/dL (8.7-10.3); Magnesium 1.5 mg/dL (1.5-2.4)
[2025-02-16 08:59] LABS: Basophils # (M) 0 X 10*3/uL (0.00-0.10); Eosinophils # (M) 0 X 10*3/uL (0.04-0.35); HCT 21.3 % (37.2-46.3); HGB 6.9 g/dL (12.0-15.0); Immature Platelet Fraction 7.4 % (1.1-6.1); Lymphocytes # (M) 1.10 X 10*3/uL (0.90-5.00); MCH 31.8 pg (27.0-32.0); MCHC 32.4 g/dL (32.0-37.0); MCV 98.2 FL (80.0-97.0); Monocytes # (M) 0.22 X 10*3/uL (0.20-1.00); NRBC Per 100 WBC 0 X 10*3/uL (0.00-0.01); Neutrophils # (M) 9.68 X 10*3/uL (1.80-7.70); Neutrophils % (M) 88 %; Platelet Count 13 X 10*3/uL (140-440); RBC 2.17 X 10*6/uL (4.10-5.20); RDW 17.0 % (11.5-14.5); Toxic Granulation 2+ (None Seen); WBC 11.00 X 10*3/uL (4.50-10.00)
--- NOTE | 2025-02-16 12:00 | P.PN ---
Subjective Patient is seen for follow-up for hyponatremia. Currently maintained on IV fluids. Serum sodium improved from 127-130 today. No significant complaints. Objective - Vital Signs Vital signs: Vital Signs Temp 98.1 F 02/16/25 07:15 Pulse 84 02/16/25 07:15 Resp 20 02/16/25 07:15 BP 113/73 02/16/25 07:15 Pulse Ox 94 L 02/16/25 07:15 FiO2 Intake & Output 02/15/25 02/16/25 02/16/25 18:59 06:59 18:59 Intake Total 355 240 0 Balance 355 240 0 Intake: Oral 355 240 Blood Product 0 Unit 0 Other: Voiding Method Toilet # Voids 1 3 - Exam Patient is awake, comfortable, no acute distress Examination of the heart S1 and S2 Examination of the lungs bilateral breath sounds are heard Abdomen is soft nontender Examination lower extremity shows no significant edema 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 - Labs CBC & Chem 7: 02/16/25 05:30 02/16/25 05:30 Labs: Abnormal Lab Results - Last 24 Hours (Table) 02/16/25 02/16/25 02/16/25 Range/Units 05:30 05:30 09:14 WBC 11.00 H (4.50-10.00) X 10*3/uL RBC 2.17 L (4.10-5.20) X 10*6/uL Hgb 6.9 A* (12.0-15.0) g/dL Hct 21.3 L (37.2-46.3) % MCV 98.2 H (80.0-97.0) FL RDW 17.0 H (11.5-14.5) % Plt Count 13 A* (140-440) X 10*3/uL MPV 12.3 H (9.5-12.2) FL Neutrophils # (Manual) 9.68 H (1.80-7.70) X 10*3/uL Eosinophils # (Manual) 0 L (0.04-0.35) X 10*3/uL Toxic Granulation 2+ A (None Seen) Immature Plt Fraction 7.4 H (1.1-6.1) % Sodium 130 L (135-145) mmol/L Creatinine 0.5 L (0.6-1.5) mg/dL BUN/Creatinine Ratio 32.00 H (12.00-20.00) Ratio Calcium 7.9 L (8.7-10.3) mg/dL Crossmatch See Detail Microbiology - Last 24 Hours (Table) 02/12/25 16:12 Blood Culture - Preliminary Blood Assessment and Plan Assessment: 1. Hyponatremia, hypovolemic. Better with IV fluids. Cosyntropin stimulation test was negative. Urine sodium 82 and urine osmolality 238. TSH normal. 2. Small cell lung cancer. 3. Hypomagnesemia from GI losses. 4. C. difficile colitis on oral vancomycin. 5. UTI on antibiotics. 6. Left ureteral stone status post cystoscopy with stent insertion February 10, 2025. Plan: Continue with normal saline Encourage increased oral intake, particularly protein May continue with urea Repeat labs in a.m.
--- NOTE | 2025-02-16 14:08 | P.PN ---
Subjective Progress Note Date: 02/16/25 Patient seen evaluated bedside. No acute complaints. No overnight fever. Diarrhea has been improving. Objective - Vital Signs Vital signs: Vital Signs Temp 98.4 F 02/16/25 12:08 Pulse 104 H 02/16/25 12:08 Resp 16 02/16/25 12:08 BP 116/65 02/16/25 12:08 Pulse Ox 97 02/16/25 12:08 FiO2 Intake & Output 02/15/25 02/16/25 02/16/25 18:59 06:59 18:59 Intake Total 355 240 0 Balance 355 240 0 Intake: Oral 355 240 Blood Product 0 Unit 0 Other: Voiding Method Toilet # Voids 1 3 - Exam Physical Exam: General: nontoxic, no distress Cardiovascular: S1 S2 reg Lungs: CTA bilateral, no rhonchi, no rales Abdominal: soft, non-tender to palpation Extremities: no edema Psych: appropriate affect - Labs CBC & Chem 7: 02/16/25 05:30 02/16/25 05:30 Labs: Abnormal Lab Results - Last 24 Hours (Table) 02/16/25 02/16/25 02/16/25 Range/Units 05:30 05:30 09:14 WBC 11.00 H (4.50-10.00) X 10*3/uL RBC 2.17 L (4.10-5.20) X 10*6/uL Hgb 6.9 A* (12.0-15.0) g/dL Hct 21.3 L (37.2-46.3) % MCV 98.2 H (80.0-97.0) FL RDW 17.0 H (11.5-14.5) % Plt Count 13 A* (140-440) X 10*3/uL MPV 12.3 H (9.5-12.2) FL Neutrophils # (Manual) 9.68 H (1.80-7.70) X 10*3/uL Eosinophils # (Manual) 0 L (0.04-0.35) X 10*3/uL Toxic Granulation 2+ A (None Seen) Immature Plt Fraction 7.4 H (1.1-6.1) % Sodium 130 L (135-145) mmol/L Creatinine 0.5 L (0.6-1.5) mg/dL BUN/Creatinine Ratio 32.00 H (12.00-20.00) Ratio Calcium 7.9 L (8.7-10.3) mg/dL Crossmatch See Detail Microbiology - Last 24 Hours (Table) 02/12/25 16:12 Blood Culture - Preliminary Blood Assessment and Plan Assessment: #. Complicated UTI positive for VRE and nephrolithiasis with 6mm obstructing left UVJ stone without hydronephrosis and moderate fecal content in bowels urology on board, antibiotics by primary team ID consulted #. Bicytopenia: anemia, thrombocytopenia secondary to C. difficile collitis #. Anemia in the setting of chemotherapy Hgb today < 7 at 6.8, type and screen and transfuse with 1 unit of PRBC. Will transfuse 1 unit of pRBC due to Hgb at 6.9 today - platelets 13,000 today. continue to monitor. transfuse platlets if < 10,000 or if there are any signs of bleeding - no signs of acute bleeding - Monitor for absolute neutrophil count #. History of SCLC, on chemo/immunotherapy, last received C5D1 on 02/02/25 with neulasta biosimilar, Udenyca, given on 02/05/25 #. Positive C. difficile collitis likely secondary to chemotherapy antibiotics by primary team - Recent restaging PET from 01/30/25 images reviewed and compared to prior PET and on my review, she has overall improvement. Liver lesions mentioned have b een present and stable on CT portion of prior PET scans including PET from 01/30/25 and doubt concerning for progression at this point. PET results have been discussed with patient and family. - Monitor for chemotoxicity. Patient had follow up appointment scheduled for today with Dr. Moser but was canceled due to this hospitalization. Discussed with patient and about treatment plan going forward. Informed patient that chemotherapy along with antibiotics can be the root cause of her C. d ifficile. Informed patient that we will discontinue chemotherapy and continue with immunotherapy going forward once cleared from C. difficile. ID following. Patient seen with resident and agree with assessment and plan as outlined above. She continues treatment for C. difficile colitis per infectious disease, which is likely contributing to anemia and thrombocytopenia due to inflammation. This is superimposed on underlying chemoimmunotherapy for extensive stage small cell lung cancer. Agree with 1 unit packed red blood cells ordered today. Transfuse for hemoglobin less than 7. Transfuse for platelets less than 10,000 or bleeding. We will arrange for follow-up upon discharge for clinical assessment prior to proceeding with cycle 6 of treatment. Desi Castanon MD
--- NOTE | 2025-02-16 14:59 | P.PN ---
Subjective Progress Note Date: 02/16/25 Patient doing ok today. Mentions improvement in pain level. Trying to eat but has little appetite. Understands plan for continued monitoring and treatment with antibiotics in the hospital. Objective - Vital Signs Vital signs: Vital Signs Temp 98.5 F 02/16/25 12:28 Pulse 200 H 02/16/25 12:28 Resp 16 02/16/25 12:28 BP 115/71 02/16/25 12:28 Pulse Ox 97 02/16/25 12:28 FiO2 Intake & Output 02/15/25 02/16/25 02/16/25 18:59 06:59 18:59 Intake Total 355 240 478 Balance 355 240 478 Intake: Oral 355 240 478 Blood Product 0 Unit 0 Other: Voiding Method Toilet Toilet # Voids 1 3 2 - Exam Vitals Signs Reviewed. General: Nontoxic, no distress, chronically ill-appearing Derm: Warm, dry Head: Atraumatic, normocephalic, symmetric Eyes: EOMI, no lid lag, anicteric sclera Mouth: No lip lesion, mucus membranes moist Cardiovascular: S1S2 reg, no murmur Lungs: CTA bilateral, no rhonchi, no rales, no accessory muscle use Abdominal: Soft, mild tenderness to palpation diffusely throughout abdomen, no guarding, no appreciable organomegaly Ext: No gross muscle atrophy, no edema, no contractures Neuro: CN II-XI grossly intact, no focal neuro deficits Psych: Alert, oriented, appropriate affect - Labs CBC & Chem 7: 02/16/25 05:30 02/16/25 05:30 Labs: Abnormal Lab Results - Last 24 Hours (Table) 02/16/25 02/16/25 02/16/25 Range/Units 05:30 05:30 09:14 WBC 11.00 H (4.50-10.00) X 10*3/uL RBC 2.17 L (4.10-5.20) X 10*6/uL Hgb 6.9 A* (12.0-15.0) g/dL Hct 21.3 L (37.2-46.3) % MCV 98.2 H (80.0-97.0) FL RDW 17.0 H (11.5-14.5) % Plt Count 13 A* (140-440) X 10*3/uL MPV 12.3 H (9.5-12.2) FL Neutrophils # (Manual) 9.68 H (1.80-7.70) X 10*3/uL Eosinophils # (Manual) 0 L (0.04-0.35) X 10*3/uL Toxic Granulation 2+ A (None Seen) Immature Plt Fraction 7.4 H (1.1-6.1) % Sodium 130 L (135-145) mmol/L Creatinine 0.5 L (0.6-1.5) mg/dL BUN/Creatinine Ratio 32.00 H (12.00-20.00) Ratio Calcium 7.9 L (8.7-10.3) mg/dL Crossmatch See Detail Microbiology - Last 24 Hours (Table) 02/12/25 16:12 Blood Culture - Preliminary Blood Assessment and Plan Assessment: Data Reviewed Today: Pertinent Labs: WBC 11.00, hemoglobin 6.9, platelets 13, sodium 130, creatinine 0.5, magnesium 1.5 Imaging: No new imaging Active: Sepsis secondary to infected nephrolithiasis status post ureteral stent C. difficile colitis Pancolitis, likely neutropenic enterocolitis with persistent intermittent fevers, now resolved Pancytopenia, WBC improved - ID following - Hgb 6.9 today; transfused 1 unit PRBC -Completed course of amoxicillin - Patient started on IV Flagyl 500 every 8 hours, also continued on oral vancomycin 500 every 6 hours - Also on Questran 4 g twice daily Persistent hyponatremia, component of hypovolemia and SIADH - Nephrology following - Continue normal saline 75 cc an hour - Patient currently on 15 g twice daily urea - Continue to monitor BMP Hypomagnesemia (resolved) - Repeat levels tomorrow Chronic: Lung cancer on chemotherapy-oncology following Atrial fibrillation, not on anticoagulation DVT ppx: Not indicated Code status: Full code Anticipated discharge place: Pending clinical course Anticipated discharge time: Pending clinical course I have seen and evaluated the patient today. Discussed with the resident and agree with the residents finding and plan as documented in the resident's note. Changes highlighted in blue font.
[2025-02-17 05:21] LABS: HCT 23.5 % (37.2-46.3); HGB 8.0 g/dL (12.0-15.0); Immature Platelet Fraction 6.8 % (1.1-6.1); MCH 32.5 pg (27.0-32.0); MCHC 34.0 g/dL (32.0-37.0); MCV 95.5 fL (80.0-97.0); RBC 2.46 10*6/uL (4.10-5.20); RDW 17.0 % (11.5-14.5); WBC 9.43 10*3/uL (4.50-10.00)
[2025-02-17 05:34] LABS: African American GFR (CKD) >90 (>60 ml/min/1.73 sqM); Anion Gap 4 mmol/L; Blood Urea Nitrogen 27 mg/dL (7-17); Calcium 8.2 mg/dL (8.4-10.2); Carbon Dioxide 28 mmol/L (22-30); Chloride 95 mmol/L (98-107); Glucose 91 mg/dL (74-99); Magnesium 1.4 mg/dL (1.6-2.3); Non-African American GFR(CKD) >90 (>60 ml/min/1.73 sqM); Potassium 3.3 mmol/L (3.5-5.1); Sodium 127 mmol/L (137-145)
[2025-02-17 05:35] LABS: Platelet Count 16 10*3/uL (140-440)
[2025-02-17] MEDS: POTASSIUM CHLORIDE ER 20 MEQ TAB.ER PO STA (06:53)
[2025-02-17] MEDS: MAGNESIUM SULFATE-D5W PMX 1 GM in DEXTROSE/WATER 1 100ML.BAG IVPB ONE (06:53)
[2025-02-17 09:24] LABS: Lymphocytes # (M) 1.98 k/uL (1.0-4.8); Monocytes # (M) 0.57 k/uL (0-1.0); Neutrophils # (M) 6.88 k/uL (1.3-7.7); Neutrophils % (M) 65 %; Total Cells Counted 100
[2025-02-17] MEDS: SODIUM CHLORIDE TAB 1 GM TAB PO STA (10:55)
--- NOTE | 2025-02-17 13:50 | P.PN ---
Subjective Patient is seen for follow-up for hyponatremia. Currently maintained on IV fluids. Serum sodium had improved to 130 yesterday but dropped back down to 127 today. Complaining of mild swelling in the hands today. No complaints of shortness of breath. Objective - Vital Signs Vital signs: Vital Signs Temp 98.1 F 02/17/25 12:09 Pulse 98 02/17/25 12:09 Resp 20 02/17/25 12:09 BP 129/80 02/17/25 12:09 Pulse Ox 99 02/17/25 12:09 FiO2 Intake & Output 02/16/25 02/17/25 02/17/25 18:59 06:59 18:59 Intake Total 788 118 118 Balance 788 118 118 Weight 49.895 kg Intake: Oral 478 118 118 Blood Product 310 Rc As-1 Unit 310 [id number] Other: Voiding Method Toilet Toilet Toilet # Voids 1 1 # Bowel Movements 1 - Exam Patient is awake, comfortable, no acute distress Examination of the heart S1 and S2 Examination of the lungs bilateral breath sounds are heard Abdomen is soft nontender Examination lower extremity shows no significant edema [employer] 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 exam grossly intact - Labs CBC & Chem 7: 02/17/25 04:49 02/17/25 04:49 Labs: Abnormal Lab Results - Last 24 Hours (Table) 02/16/25 02/17/25 02/17/25 Range/Units 09:14 04:49 04:49 RBC 2.46 L (4.10-5.20) 10*6/uL Hgb 8.0 L (12.0-15.0) g/dL Hct 23.5 L (37.2-46.3) % MCH 32.5 H (27.0-32.0) pg RDW 17.0 H (11.5-14.5) % Plt Count 16 L* (140-440) 10*3/uL MPV 12.5 H (9.5-12.2) fL Immature Gran # 1.15 H (0.00-0.04) 10*3/uL Immature Plt Fraction 6.8 H (1.1-6.1) % Sodium 127 L (137-145) mmol/L Potassium 3.3 L (3.5-5.1) mmol/L Chloride 95 L (98-107) mmol/L BUN 27 H (7-17) mg/dL Creatinine 0.40 L (0.52-1.04) mg/dL Calcium 8.2 L (8.4-10.2) mg/dL Magnesium 1.4 L (1.6-2.3) mg/dL Crossmatch See Detail Assessment and Plan Assessment: 1. Hyponatremia, hypovolemic. Initially improved with IV hydration. Sodium decreased to 127 today while on normal saline. Fluids will be discontinued. Cosyntropin stimulation test was negative. Urine sodium 82 and urine osmolality 238. TSH normal. 2. Small cell lung cancer. 3. Hypomagnesemia from GI losses. 4. C. difficile colitis on oral vancomycin. 5. UTI on antibiotics. 6. Left ureteral stone status post cystoscopy with stent insertion February 10, 2025. Plan: DC normal saline Sodium chloride tab x 1 Repeat sodium this afternoon. May need IV Lasix Encourage increased oral intake, particularly protein continue with urea Repeat labs in a.m.
--- NOTE | 2025-02-17 15:39 | P.PN ---
Subjective Progress Note Date: 02/17/25 Principal diagnosis: Patient reports doing alright overnight. No new complaints. Pain currently under control. Able to ambulate to restroom and back. Better appetite today. Objective - Vital Signs Vital signs: Vital Signs Temp 98.1 F 02/17/25 12:09 Pulse 98 02/17/25 12:09 Resp 20 02/17/25 12:09 BP 129/80 02/17/25 12:09 Pulse Ox 99 02/17/25 12:09 FiO2 Intake & Output 02/16/25 02/17/25 02/17/25 18:59 06:59 18:59 Intake Total 788 118 118 Balance 788 118 118 Weight 49.895 kg Intake: Oral 478 118 118 Blood Product 310 Rc As-1 Unit 310 [id number] Other: Voiding Method Toilet Toilet Toilet # Voids 1 1 # Bowel Movements 1 - Exam Vitals Signs Reviewed. General: Nontoxic, no distress, chronically ill-appearing Derm: Warm, dry Head: Atraumatic, normocephalic, symmetric Eyes: EOMI, no lid lag, anicteric sclera Mouth: No lip lesion, mucus membranes moist Cardiovascular: S1S2 reg, no murmur Lungs: CTA bilateral, no rhonchi, no rales, no accessory muscle use Abdominal: Soft, mild tenderness to palpation diffusely throughout abdomen, no guarding, no appreciable organomegaly Ext: No gross muscle atrophy, no edema, no contractures Neuro: CN II-XI grossly intact, no focal neuro deficits Psych: Alert, oriented, appropriate affectd - Labs CBC & Chem 7: 02/17/25 04:49 02/17/25 14:23 Labs: Abnormal Lab Results - Last 24 Hours (Table) 02/16/25 02/17/25 02/17/25 Range/Units 09:14 04:49 04:49 RBC 2.46 L (4.10-5.20) 10*6/uL Hgb 8.0 L (12.0-15.0) g/dL Hct 23.5 L (37.2-46.3) % MCH 32.5 H (27.0-32.0) pg RDW 17.0 H (11.5-14.5) % Plt Count 16 L* (140-440) 10*3/uL MPV 12.5 H (9.5-12.2) fL Immature Gran # 1.15 H (0.00-0.04) 10*3/uL Immature Plt Fraction 6.8 H (1.1-6.1) % Sodium 127 L (137-145) mmol/L Potassium 3.3 L (3.5-5.1) mmol/L Chloride 95 L (98-107) mmol/L BUN 27 H (7-17) mg/dL Creatinine 0.40 L (0.52-1.04) mg/dL Calcium 8.2 L (8.4-10.2) mg/dL Magnesium 1.4 L (1.6-2.3) mg/dL Crossmatch See Detail 02/17/25 Range/Units 14:23 RBC (4.10-5.20) 10*6/uL Hgb (12.0-15.0) g/dL Hct (37.2-46.3) % MCH (27.0-32.0) pg RDW (11.5-14.5) % Plt Count (140-440) 10*3/uL MPV (9.5-12.2) fL Immature Gran # (0.00-0.04) 10*3/uL Immature Plt Fraction (1.1-6.1) % Sodium 128 L (137-145) mmol/L Potassium (3.5-5.1) mmol/L Chloride (98-107) mmol/L BUN (7-17) mg/dL Creatinine (0.52-1.04) mg/dL Calcium (8.4-10.2) mg/dL Magnesium (1.6-2.3) mg/dL Crossmatch Assessment and Plan Assessment: Data Reviewed Today: Pertinent Labs: WBC 9.43, hemoglobin 8.0, platelets 16, sodium 127, creatinine 0.4, magnesium 1.4 EKG shows sinus tachycardia with PVCs unchanged from previous Imaging: No new imaging Active: Sepsis secondary to infected nephrolithiasis status post ureteral stent C. difficile colitis Pancolitis, likely neutropenic enterocolitis with persistent intermittent fevers, now resolved Pancytopenia, WBC improved - ID following - Hgb 8.0 today; transfused 1 unit PRBC yesterday -Completed course of amoxicillin - Continue IV Flagyl 500 every 8 hours, also continued on oral vancomycin 500 every 6 hours - Discussed with ID, because this is the patient's first time infected with C. difficile, home RX of 250mg PO Q6hr x 2 weeks is appropriate. - Also on Questran 4 g twice daily Persistent hyponatremia, component of hypovolemia and SIADH - Nephrology following - Normal saline stopped - Patient currently on 15 g twice daily urea - nephrology gave 1gm PO sodium chloride tablet - Repeat Na today 128 - Continue to monitor BMP Hypokalemia -Given 40 meq potassium chloride PO -Repeat BMP tomorrrow Hypomagnesemia - Given 1 gm magnesium sulfate - Repeat levels tomorrow Chronic: Lung cancer on chemotherapy-oncology following Atrial fibrillation, not on anticoagulation DVT ppx: Not indicated Code status: Full code Anticipated discharge place: Pending clinical course Anticipated discharge time: Pending clinical course I have seen and evaluated the patient today. Discussed with the resident and agree with the residents finding and plan as documented in the resident's note. Changes highlighted in blue font.
--- NOTE | 2025-02-17 17:16 | P.PN ---
Subjective Progress Note Date: 02/16/25 Principal diagnosis: Reason for follow-up is complicated UTI and C. 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 coli Enterococcus also developed C. difficile colitis prompting this consultation. On today's evaluation that is 02/16/2025, patient did have resolution of her fever and has been afebrile, patient is breathing comfortably and is currently on room air, patient denies having any chest pain and cough, patient denies nausea vomiting improvement abdominal pain and diarrhea slowed down. The patient white count is 11,000, creatinine 0.5 blood cultures currently pending Objective - Vital Signs Vital signs: Vital Signs Temp 98.1 F 02/16/25 07:15 Pulse 84 02/16/25 07:15 Resp 20 02/16/25 07:15 BP 113/73 02/16/25 07:15 Pulse Ox 94 L 02/16/25 07:15 FiO2 Intake & Output 02/15/25 02/16/25 02/16/25 18:59 06:59 18:59 Intake Total 355 240 Balance 355 240 Intake: Oral 355 240 Other: Voiding Method Toilet # Voids 1 3 - Exam GENERAL DESCRIPTION: An elderly female lying in bed in no distress RESPIRATORY SYSTEM: Unlabored breathing , decreased breath sounds at bases HEART: S1 S2 regular rate and rhythm , ABDOMEN: Soft , no tenderness EXTREMITIES: No edema feet - Labs CBC & Chem 7: 02/17/25 04:49 02/17/25 14:23 Labs: Abnormal Lab Results - Last 24 Hours (Table) 02/16/25 02/16/25 Range/Units 05:30 05:30 WBC 11.00 H (4.50-10.00) X 10*3/uL RBC 2.17 L (4.10-5.20) X 10*6/uL Hgb 6.9 A* (12.0-15.0) g/dL Hct 21.3 L (37.2-46.3) % MCV 98.2 H (80.0-97.0) FL RDW 17.0 H (11.5-14.5) % Plt Count 13 A* (140-440) X 10*3/uL MPV 12.3 H (9.5-12.2) FL Neutrophils # (Manual) 9.68 H (1.80-7.70) X 10*3/uL Eosinophils # (Manual) 0 L (0.04-0.35) X 10*3/uL Toxic Granulation 2+ A (None Seen) Immature Plt Fraction 7.4 H (1.1-6.1) % Sodium 130 L (135-145) mmol/L Creatinine 0.5 L (0.6-1.5) mg/dL BUN/Creatinine Ratio 32.00 H (12.00-20.00) Ratio Calcium 7.9 L (8.7-10.3) mg/dL Microbiology - Last 24 Hours (Table) 02/12/25 16:12 Blood Culture - Preliminary Blood Assessment and Plan (1) C. difficile colitis Current Visit: Yes Status: Acute Code(s): A04.72 - ENTEROCOLITIS D/T CLOSTRIDIUM DIFFICILE, NOT SPCF RECUR SNOMED Code(s): 105322078 (2) Sepsis Current Visit: Yes Status: Acute Code(s): A41.9 - SEPSIS, UNSPECIFIED ORGANISM SNOMED Code(s): 40554559 (3) UTI (urinary tract infection) Current Visit: Yes Status: Acute Code(s): N39.0 - URINARY TRACT INFECTION, SITE NOT SPECIFIED SNOMED Code(s): 98598123 Plan: 1patient with initial presentation to the hospital with sepsis in this patient who did have complicated UTI with left-sided ureteral stone requiring cystoscopy and left ureteral stent placement with urine culture showing E. coli and E nterococcus which is VRE however sensitive to ampicillin. 2patient clinical course also complicated by development of diarrhea and stool for C. difficile is positive that would complicate her overall treatment for complicated UTI 3-patient has received adequate antibiotic therapy for E. coli Enterococcus UTI we will go ahead and discontinue oral amoxicillin 4patient did have evidence of severe C. difficile colitis on the basis of CT findings 5patient is currently being treated with oral vancomycin 500 mg daily and IV Flagyl and monitor clinical course closely Dictation was produced using [employer] dictation software. please excuse any grammatical, word or spelling errors. Time with Patient: Less than 30
--- NOTE | 2025-02-17 17:17 | P.PN ---
Subjective Progress Note Date: 02/17/25 Principal diagnosis: Reason for follow-up is complicated UTI and C. 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 coli Enterococcus also developed C. difficile colitis prompting this consultation. On today's evaluation that is 02/17/2025, Patient is afebrile this morning patient denies having any chest pain shortness of breath or cough, the patient is currently on room air, patient mention improvement in abdominal pain no nausea no vomiting and diarrhea has slowed on. Patient white count is 9.43, creatinine 0.40 blood culture repeat has been negative so far Objective - Vital Signs Vital signs: Vital Signs Temp 98.5 F 02/17/25 07:15 Pulse 95 02/17/25 07:15 Resp 20 02/17/25 07:15 BP 124/78 02/17/25 07:15 Pulse Ox 98 02/17/25 07:15 FiO2 Intake & Output 02/16/25 02/17/25 02/17/25 18:59 06:59 18:59 Intake Total 788 118 118 Balance 788 118 118 Intake: Oral 478 118 118 Blood Product 310 Rc As-1 Unit 310 [id number] Other: Voiding Method Toilet Toilet Toilet # Voids 1 1 # Bowel Movements 1 - Exam GENERAL DESCRIPTION: An elderly female lying in bed in no distress RESPIRATORY SYSTEM: Unlabored breathing , decreased breath sounds at bases HEART: S1 S2 regular rate and rhythm , ABDOMEN: Soft , no tenderness EXTREMITIES: No edema feet - Labs CBC & Chem 7: 02/17/25 04:49 02/17/25 14:23 Labs: Abnormal Lab Results - Last 24 Hours (Table) 02/16/25 02/17/25 02/17/25 Range/Units 09:14 04:49 04:49 RBC 2.46 L (4.10-5.20) 10*6/uL Hgb 8.0 L (12.0-15.0) g/dL Hct 23.5 L (37.2-46.3) % MCH 32.5 H (27.0-32.0) pg RDW 17.0 H (11.5-14.5) % Plt Count 16 L* (140-440) 10*3/uL MPV 12.5 H (9.5-12.2) fL Immature Gran # 1.15 H (0.00-0.04) 10*3/uL Immature Plt Fraction 6.8 H (1.1-6.1) % Sodium 127 L (137-145) mmol/L Potassium 3.3 L (3.5-5.1) mmol/L Chloride 95 L (98-107) mmol/L BUN 27 H (7-17) mg/dL Creatinine 0.40 L (0.52-1.04) mg/dL Calcium 8.2 L (8.4-10.2) mg/dL Magnesium 1.4 L (1.6-2.3) mg/dL Crossmatch See Detail Assessment and Plan (1) C. difficile colitis Current Visit: Yes Status: Acute Code(s): A04.72 - ENTEROCOLITIS D/T CLOSTR IDIUM DIFFICILE, NOT SPCF RECUR SNOMED Code(s): 977696758 (2) Sepsis Current Visit: Yes Status: Acute Code(s): A41.9 - SEPSIS, UNSPECIFIED ORGANISM SNOMED Code(s): 30235897 (3) UTI (urinary tract infection) Current Visit: Yes Status: Acute Code(s): N39.0 - URINARY TRACT INFECTION, SITE NOT SPECIFIED SNOMED Code(s): 17695497 Plan: 1patient with initial presentation to the hospital with sepsis in this patient who did have complicated UTI with left-sided ureteral stone requiring cystoscopy and left ureteral stent placement with urine culture showing E. coli and Enterococcus which is VRE however sensitive to ampicillin. 2patient clinical course also complicated by development of diarrhea and stool for C. difficile is positive that would complicate her overall treatment for complicated UTI 3-patient has received adequate antibiotic therapy for E. coli Enterococcus UTI we will go ahead and discontinue oral amoxicillin 4patient did have evidence of severe C. difficile colitis on the basis of CT findings 5patient is currently being treated with oral vancomycin 500 mg daily and IV Flagyl and seem to have shown clinical improvement should be able to finish therapy with the 2-day course of oral vancomycin 250 mg p.o. every 6 hours this was discussed with the resident physician was advised to make sure that sent the prescription today so she did have medication on discharge tomorrow Dictation was produced using [employer] dictation software. please excuse any grammatical, word or spelling errors. Time with Patient: Less than 30
[2025-02-18] MEDS: FUROSEMIDE 20 MG TAB PO ONE (00:19)
[2025-02-18 06:11] LABS: African American GFR (CKD) >90 (>60 ml/min/1.73 sqM); Anion Gap 7 mmol/L; Blood Urea Nitrogen 28 mg/dL (7-17); Calcium 8.6 mg/dL (8.4-10.2); Carbon Dioxide 27 mmol/L (22-30); Chloride 96 mmol/L (98-107); Glucose 87 mg/dL (74-99); Magnesium 1.5 mg/dL (1.6-2.3); Non-African American GFR(CKD) >90 (>60 ml/min/1.73 sqM); Potassium 3.5 mmol/L (3.5-5.1); Sodium 130 mmol/L (137-145)
[2025-02-18 08:14] LABS: HCT 26.8 % (37.2-46.3); HGB 8.6 g/dL (12.0-15.0); Immature Platelet Fraction 9.9 % (1.1-6.1); MCH 31.2 pg (27.0-32.0); MCHC 32.1 g/dL (32.0-37.0); MCV 97.1 FL (80.0-97.0); NRBC Per 100 WBC 0 X 10*3/uL (0.00-0.01); RBC 2.76 X 10*6/uL (4.10-5.20); RDW 17.1 % (11.5-14.5); WBC 11.45 X 10*3/uL (4.50-10.00)
[2025-02-18 09:59] LABS: Basophils # (M) 0 X 10*3/uL (0.00-0.10); Eosinophils # (M) 0 X 10*3/uL (0.04-0.35); Lymphocytes # (M) 1.03 X 10*3/uL (0.90-5.00); Monocytes # (M) 0.46 X 10*3/uL (0.20-1.00); Neutrophils # (M) 9.05 X 10*3/uL (1.80-7.70); Neutrophils % (M) 79 %; Platelet Count 30 X 10*3/uL (140-440); Promyelocytes # (M) 0.11 k/uL (0); Toxic Granulation 2+ (None Seen)
[2025-02-18] MEDS: MAGNESIUM SULFATE-D5W PMX 1 GM in DEXTROSE/WATER 1 100ML.BAG IVPB ONE (11:31)
--- NOTE | 2025-02-18 12:49 | P.PN ---
Subjective Patient is seen for follow-up for hyponatremia. Status post IV fluids Serum sodium had improved to 130 yesterday but dropped back down to 127 yester day. IV fluids were discontinued and patient received 1 dose of sodium chloride tab. She also received low-dose oral Lasix yesterday and serum sodium is up to 130 again today. Complaining of diarrhea last night and this morning. No complaints of shortness of breath. Objective - Vital Signs Vital signs: Vital Signs Temp 97.8 F 02/18/25 07:15 Pulse 95 02/18/25 07:15 Resp 16 02/18/25 07:15 BP 122/77 02/18/25 07:15 Pulse Ox 99 02/18/25 07:15 FiO2 Intake & Output 02/17/25 02/18/25 02/18/25 18:59 06:59 18:59 Intake Total 363 240 240 Balance 363 240 240 Weight 49.895 kg Intake: Oral 363 240 240 Other: Voiding Method Toilet Toilet Toilet # Voids 2 2 # Bowel Movements 2 - Exam Patient is awake, comfortable, no acute distress Examination of the heart S1 and S2 Examination of the lungs bilateral breath sounds are heard Abdomen is soft nontender Examination lower extremity shows no significant edema [employer] exam grossly intact - Labs CBC & Chem 7: 02/18/25 06:00 02/18/25 06:00 Labs: Abnormal Lab Results - Last 24 Hours (Table) 02/17/25 02/18/25 02/18/25 Range/Units 14:23 06:00 06:00 WBC 11.45 H (4.50-10.00) X 10*3/uL RBC 2.76 L (4.10-5.20) X 10*6/uL Hgb 8.6 L (12.0-15.0) g/dL Hct 26.8 L (37.2-46.3) % MCV 97.1 H (80.0-97.0) FL RDW 17.1 H (11.5-14.5) % Plt Count 30 A* (140-440) X 10*3/uL MPV 12.3 H (9.5-12.2) FL Neutrophils # (Manual) 9.05 H (1.80-7.70) X 10*3/uL Eosinophils # (Manual) 0 L (0.04-0.35) X 10*3/uL Toxic Granulation 2+ A (None Seen) Immature Plt Fraction 9.9 H (1.1-6.1) % Sodium 128 L 130 L (137-145) mmol/L Chloride 96 L (98-107) mmol/L BUN 28 H (7-17) mg/dL Creatinine 0.38 L (0.52-1.04) mg/dL Magnesium 1.5 L (1.6-2.3) mg/dL Microbiology - Last 24 Hours (Table) 02/12/25 16:12 Blood Culture - Final Blood Assessment and Plan Assessment: 1. Hyponatremia, hypovolemic. Initially improved with IV hydration. Sodium decreased to 127 yesterday while on normal saline. Fluids were discontinued and patient received low-dose oral Lasix yesterday. Sodium is 130 today. 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 Cosyntropin stimulation test was negative. Urine sodium 82 and urine osmolality 238. TSH normal. 2. Small cell lung cancer. 3. Hypomagnesemia from GI losses. 4. C. difficile colitis on oral vancomycin. 5. UTI on antibiotics. 6. Left ureteral stone status post cystoscopy with stent insertion February 10, 2025. Plan: Continue off of IV fluids Encourage increased oral intake, particularly protein continue with urea Repeat labs in a.m.
[2025-02-18] MEDS: PSYLLIUM HUSK 100% 6 GM PACKET PO SCH (15:17)
--- NOTE | 2025-02-18 15:19 | P.PN ---
Subjective Progress Note Date: 02/18/25 Patient reports worsening abdominal pain today. She also mentions that overnight she had another episode of diarrhea. She mentions some mild nausea but denies vomiting. Still ambulating and eating. Objective - Vital Signs Vital signs: Vital Signs Temp 98.1 F 02/18/25 12:56 Pulse 88 02/18/25 12:56 Resp 16 02/18/25 12:56 BP 115/76 02/18/25 12:56 Pulse Ox 100 02/18/25 12:56 FiO2 Intake & Output 02/17/25 02/18/25 02/18/25 18:59 06:59 18:59 Intake Total 363 240 540 Balance 363 240 540 Weight 49.895 kg Intake: Oral 363 240 540 Other: Voiding Method Toilet Toilet Toilet # Voids 2 2 # Bowel Movements 2 - Exam Vitals Signs Reviewed. General: Nontoxic, no distress, chronically ill-appearing Derm: Warm, dry Head: Atraumatic, normocephalic, symmetric Eyes: EOMI, no lid lag, anicteric sclera Mouth: No lip lesion, mucus membranes moist Cardiovascular: S1S2 reg, no murmur Lungs: CTA bilateral, no rhonchi, no rales, no accessory muscle use Abdominal: Soft, tenderness to palpation diffusely throughout abdomen, no guarding, no appreciable organomegaly Ext: No gross muscle atrophy, no edema, no contractures Neuro: CN II-XI grossly intact, no focal neuro deficits Psych: Alert, oriented, appropriate affectd - Labs CBC & Chem 7: 02/18/25 06:00 02/18/25 06:00 Labs: Abnormal Lab Results - Last 24 Hours (Table) 02/18/25 02/18/25 Range/Units 06:00 06:00 WBC 11.45 H (4.50-10.00) X 10*3/uL RBC 2.76 L (4.10-5.20) X 10*6/uL Hgb 8.6 L (12.0-15.0) g/dL Hct 26.8 L (37.2-46.3) % MCV 97.1 H (80.0-97.0) FL RDW 17.1 H (11.5-14.5) % Plt Count 30 A* (140-440) X 10*3/uL MPV 12.3 H (9.5-12.2) FL Neutrophils # (Manual) 9.05 H (1.80-7.70) X 10*3/uL Eosinophils # (Manual) 0 L (0.04-0.35) X 10*3/uL Promyelocytes # (Man) 0.11 H (0) k/uL Toxic Granulation 2+ A (None Seen) Immature Plt Fraction 9.9 H (1.1-6.1) % Sodium 130 L (137-145) mmol/L Chloride 96 L (98-107) mmol/L BUN 28 H (7-17) mg/dL Creatinine 0.38 L (0.52-1.04) mg/dL Magnesium 1.5 L (1.6-2.3) mg/dL Microbiology - Last 24 Hours (Table) 02/12/25 16:12 Blood Culture - Final Blood Assessment and Plan Assessment: Data Reviewed Today: Pertinent Labs: WBC 11.45, hemoglobin 8.6, platelets 30, sodium 130, creatinine 0.38, magnesium 1.5 Imaging: No new imaging Active: Sepsis secondary to infected nephrolithiasis status post ureteral stent C. difficile colitis Pancolitis, likely neutropenic enterocolitis with persistent intermittent fevers, now resolved Pancytopenia, WBC improved - ID following -Completed course of amoxicillin - Continue IV Flagyl 500 every 8 hours, also continued on oral vancomycin 500 every 6 hours - Discussed with ID, because this is the patient's first time infected with C. d ifficile, home RX of 250mg PO Q6hr x 2 weeks is appropriate at time of discharge. - Also on Questran 4 g twice daily - ID added psyllium husk 6 gm PO BID Persistent hyponatremia, component of hypovolemia and SIADH - Nephrology following - Normal saline stopped - Patient currently on 15 g twice daily urea - nephrology gave 1gm PO sodium chloride tablet on 02/17/2025 - Encourage increased oral intake, particularly protein per nephrology - Repeat Na today 130 - Continue to monitor BMP Hypokalemia (resolved) -Repeat BMP tomorrrow Hypomagnesemia - Given 1 gm magnesium sulfate - Repeat levels tomorrow Chronic: Lung cancer on chemotherapy-oncology following Atrial fibrillation, not on anticoagulation DVT ppx: Not indicated Code status: Full code Anticipated discharge place: Pending clinical course Anticipated discharge time: Pending clinical course I have seen and evaluated the patient today. Discussed with the resident and agree with the residents finding and plan as documented in the resident's note. Changes highlighted in blue font.
--- NOTE | 2025-02-18 20:55 | P.PN ---
Subjective Progress Note Date: 02/18/25 Principal diagnosis: SCLC. C-diff infection In f/u today pt reports 1 episode of diarrhea, no reported fever, N,V. She is scared to go home because of the urgency of stooling as well as incontinence Objective - Vital Signs Vital signs: Vital Signs Temp 98.0 F 02/18/25 18:06 Pulse 86 02/18/25 18:06 Resp 16 02/18/25 18:06 BP 128/77 02/18/25 18:06 Pulse Ox 99 02/18/25 18:06 FiO2 Intake & Output 02/18/25 02/18/25 02/19/25 06:59 18:59 06:59 Intake Total 240 1740 Balance 240 1740 Intake: Oral 240 1740 Other: Voiding Method Toilet Toilet # Voids 2 5 # Bowel Movements 2 3 - Constitutional General appearance: Present: cooperative, no acute distress, thin - EENT Eyes: Present: anicteric sclerae, EOMI - Respiratory Details: resp unlabored at rest - Integumentary Integumentary: Present: pale - Neurologic Neurologic: Present: CNII-XII intact - Musculoskeletal Musculoskeletal: Present: generalized weakness, strength equal bilaterally - Psychiatric Psychiatric: Present: A&O x's 3, appropriate affect, intact judgment & insight - Labs CBC & Chem 7: 02/18/25 06:00 02/18/25 06:00 Labs: Abnormal Lab Results - Last 24 Hours (Table) 02/18/25 02/18/25 Range/Units 06:00 06:00 WBC 11.45 H (4.50-10.00) X 10*3/uL RBC 2.76 L (4.10-5.20) X 10*6/uL Hgb 8.6 L (12.0-15.0) g/dL Hct 26.8 L (37.2-46.3) % MCV 97.1 H (80.0-97.0) FL RDW 17.1 H (11.5-14.5) % Plt Count 30 A* (140-440) X 10*3/uL MPV 12.3 H (9.5-12.2) FL Neutrophils # (Manual) 9.05 H (1.80-7.70) X 10*3/uL Eosinophils # (Manual) 0 L (0.04-0.35) X 10*3/uL Promyelocytes # (Man) 0.11 H (0) k/uL Toxic Granulation 2+ A (None Seen) Immature Plt Fraction 9.9 H (1.1-6.1) % Sodium 130 L (137-145) mmol/L Chloride 96 L (98-107) mmol/L BUN 28 H (7-17) mg/dL Creatinine 0.38 L (0.52-1.04) mg/dL Magnesium 1.5 L (1.6-2.3) mg/dL Microbiology - Last 24 Hours (Table) 02/12/25 16:12 Blood Culture - Final Blood Assessment and Plan (1) C. difficile colitis Current Visit: Yes Status: Acute Priority: High Code(s): A04.72 - ENTEROCOLITIS D/T CLOSTRIDIUM DIFFICILE, NOT SPCF RECUR SNOMED Code(s): 812191997 (2) Bicytopenia Current Visit: Yes Status: Acute Priority: High Code(s): D75.89 - OTHER SPECIFIED DISEASES OF BLOOD AND BLOOD-FORMING ORGANS SNOMED Code(s): 64685935 (3) Leukocytosis Current Visit: Yes Status: Acute Priority: Medium Code(s): D72.829 - ELEVATED WHITE BLOOD CELL COUNT, UNSPECIFIED SNOMED Code(s): 003278114 Plan: C-diff infection -underlying cause of diarrhea -On abx, ID following -Would like ID recommendations regarding if pt would need vacnomycin oral prophylaxis as she continues on IO alone Small cell lung cancer on chemotherapy/immunotherapy -s/p 5 cycle of chemo/IO with GCSF 02/05. -Recent restaging PET from 01/30/25 reporting overall improvement. Liver lesions mentioned have been present and stable. - Monitor for chemo toxicity, follow up with Dr Moser scheduled 02/11/25 to discuss further chemotherapy rec's -Plan is to cont on IO alone -Treatment will not resume until pt current condition is aequately resolved Chemo induced bicytopenia Hgb 8.6, plt 30,000 today-some slight recovery the further pt gets from chemo -Cont to monitor Leukocytosis -2/2 G-CSF and acute infection. It is not worsening at this time - UTI and kidney stone. ID, Urology and Nephrology
[2025-02-19] MEDS: VANCOMYCIN 125 MG CAPSULE PO SCH (06:50)
[2025-02-19 07:18] LABS: African American GFR (CKD) >90 (>60 ml/min/1.73 sqM); Anion Gap 5 mmol/L; Blood Urea Nitrogen 26 mg/dL (7-17); Calcium 7.0 mg/dL (8.4-10.2); Carbon Dioxide 25 mmol/L (22-30); Chloride 103 mmol/L (98-107); Glucose 76 mg/dL (74-99); Magnesium 1.3 mg/dL (1.6-2.3); Non-African American GFR(CKD) >90 (>60 ml/min/1.73 sqM); Potassium 2.9 mmol/L (3.5-5.1); Sodium 133 mmol/L (137-145)
[2025-02-19 07:20] LABS: HCT 23.3 % (37.2-46.3); HGB 7.6 g/dL (12.0-15.0); RBC 2.41 10*6/uL (4.10-5.20); WBC 9.66 10*3/uL (4.50-10.00)
[2025-02-19 07:21] LABS: MCH 31.5 pg (27.0-32.0); MCHC 32.6 g/dL (32.0-37.0); MCV 96.7 fL (80.0-97.0); RDW 16.9 % (11.5-14.5)
[2025-02-19 07:23] LABS: Platelet Count 44 10*3/uL (140-440)
--- NOTE | 2025-02-19 08:26 | P.PN ---
Subjective Progress Note Date: 02/18/25 Principal diagnosis: Reason for follow-up is complicated UTI and C. 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 coli Enterococcus also developed C. difficile colitis prompting this consultation. On today's evaluation that is 02/18/2025,the patient denies any fever or any chills, patient is breathing comfortably on room air, the patient denies chest pain shortness of breath and no significant cough, patient still complaining of some abdominal discomfort and did have a persistent loose stools. Patient white count slightly up to 11.45, creatinine 0.38 blood culture repeat has been negative Objective - Vital Signs Vital signs: Vital Signs Temp 98.1 F 02/18/25 12:56 Pulse 88 02/18/25 12:56 Resp 16 02/18/25 12:56 BP 115/76 02/18/25 12:56 Pulse Ox 100 02/18/25 12:56 FiO2 Intake & Output 02/17/25 02/18/25 02/18/25 18:59 06:59 18:59 Intake Total 363 240 240 Balance 363 240 240 Weight 49.895 kg Intake: Oral 363 240 240 Other: Voiding Method Toilet Toilet Toilet # Voids 2 2 # Bowel Movements 2 - Exam GENERAL DESCRIPTION: An elderly female lying in bed in no distress RESPIRATORY SYSTEM: Unlabored breathing , decreased breath sounds at bases HEART: S1 S2 regular rate and rhythm , ABDOMEN: Soft , no tenderness EXTREMITIES: No edema feet - Labs CBC & Chem 7: 02/19/25 06:26 02/19/25 06:26 Labs: Abnormal Lab Results - Last 24 Hours (Table) 02/17/25 02/18/25 02/18/25 Range/Units 14:23 06:00 06:00 WBC 11.45 H (4.50-10.00) X 10*3/uL RBC 2.76 L (4.10-5.20) X 10*6/uL Hgb 8.6 L (12.0-15.0) g/dL Hct 26.8 L (37.2-46.3) % MCV 97.1 H (80.0-97.0) FL RDW 17.1 H (11.5-14.5) % Plt Count 30 A* (140-440) X 10*3/uL MPV 12.3 H (9.5-12.2) FL Neutrophils # (Manual) 9.05 H (1.80-7.70) X 10*3/uL Eosinophils # (Manual) 0 L (0.04-0.35) X 10*3/uL Toxic Granulation 2+ A (None Seen) Immature Plt Fraction 9.9 H (1.1-6.1) % Sodium 128 L 130 L (137-145) mmol/L Chloride 96 L (98-107) mmol/L BUN 28 H (7-17) mg/dL Creatinine 0.38 L (0.52-1.04) mg/dL Magnesium 1.5 L (1.6-2.3) mg/dL Microbiology - Last 24 Hours (Table) 02/12/25 16:12 Blood Culture - Final Blood Assessment and Plan (1) C. difficile colitis Current Visit: Yes Status: Acute Priority: High Code(s): A04.72 - ENTEROCOLITIS D/T CLOSTRIDIUM DIFFICILE, NOT SPCF RECUR SNOMED Code(s): 446188353 (2) Sepsis Current Visit: Yes Status: Acute Code(s): A41.9 - SEPSIS, UNSPECIFIED ORGANISM SNOMED Code(s): 73299813 (3) UTI (urinary tract infection) Current Visit: Yes Status: Acute Code(s): N39.0 - URINARY TRACT INFECTION, SITE NOT SPECIFIED SNOMED Code(s): 26690808 Plan: 1patient with initial presentation to the hospital with sepsis in this patient who did have complicated UTI with left-sided ureteral stone requiring cystoscopy and left ureteral stent placement with urine culture showing E. coli and Enterococcus which is VRE however sensitive to ampicillin. 2patient clinical course also complicated by development of diarrhea and stool for C. difficile is positive that would complicate her overall treatment for complicated UTI 3-patient has received adequate antibiotic therapy for E. coli Enterococcus UTI we will go ahead and discontinue oral amoxicillin 4patient did have evidence of severe C. difficile colitis on the basis of CT findings 5patient is currently being treated with oral vancomycin 500 mg daily and IV Flagyl patient is recommending no significant diarrhea we will discontinue Questran as no improvement at Metamucil and see clinical response and monitor clinical course closely Dictation was produced using [employer] dictation software. please excuse any grammatical, word or spelling errors. Time with Patient: Less than 30
[2025-02-19 08:33] LABS: Anisocytosis (M) Present; Lymphocytes # (M) 1.93 k/uL (1.0-4.8); Monocytes # (M) 1.06 k/uL (0-1.0); Myelocytes # (M) 0.29 k/uL (0); Neutrophils # (M) 6.37 k/uL (1.3-7.7); Neutrophils % (M) 63 %; Poikilocytosis (M) Present; Total Cells Counted 100
[2025-02-19] MEDS: POTASSIUM CHLORIDE ER 20 MEQ TAB.ER PO STA ×2 (08:42→11:20)
[2025-02-19] MEDS: MAGNESIUM SULFATE-D5W PMX 1 GM in DEXTROSE/WATER 1 100ML.BAG IVPB ONE (09:46)
[2025-02-19] MEDS: MAGNESIUM SULFATE-D5W PMX 1 GM in DEXTROSE/WATER 1 100ML.BAG IVPB SCH (11:21)
--- NOTE | 2025-02-19 13:26 | P.PN ---
Subjective Patient is seen for follow-up for hyponatremia. Serum sodium had improved to 133 today Diarrhea has improved. No complaints of shortness of breath. Objective - Vital Signs Vital signs: Vital Signs Temp 98 F 02/19/25 07:25 Pulse 102 H 02/19/25 07:25 Resp 16 02/19/25 07:25 BP 107/65 02/19/25 07:25 Pulse Ox 94 L 02/19/25 07:25 FiO2 Intake & Output 02/18/25 02/19/25 02/19/25 18:59 06:59 18:59 Intake Total 1740 550 720 Balance 1740 550 720 Intake: Oral 1740 720 Other 550 Other: Voiding Method Toilet Toilet Toilet # Voids 5 2 4 # Bowel Movements 3 - Exam Patient is awake, comfortable, no acute distress Examination lower extremity shows no significant edema SHIP BOSS exam grossly intact - Labs CBC & Chem 7: 02/19/25 06:26 02/19/25 06:26 Labs: Abnormal Lab Results - Last 24 Hours (Table) 02/18/25 02/19/25 02/19/25 Range/Units 06:00 06:26 06:26 RBC 2.41 L (4.10-5.20) 10*6/uL Hgb 7.6 L (12.0-15.0) g/dL Hct 23.3 L (37.2-46.3) % RDW 16.9 H (11.5-14.5) % Plt Count 44 L D (140-440) 10*3/uL Immature Gran # 1.09 H (0.00-0.04) 10*3/uL Monocytes # (Manual) 1.06 H (0-1.0) k/uL Myelocytes # (Manual) 0.29 H (0) k/uL Promyelocytes # (Man) 0.11 H (0) k/uL Sodium 133 L (137-145) mmol/L Potassium 2.9 L (3.5-5.1) mmol/L BUN 26 H (7-17) mg/dL Creatinine 0.44 L (0.52-1.04) mg/dL Calcium 7.0 L (8.4-10.2) mg/dL Magnesium 1.3 L (1.6-2.3) mg/dL Assessment and Plan Assessment: 1. Hyponatremia, hypovolemic. Initially improved with IV hydration. Sodium decreased to 127 while on normal saline. Fluids were discontinued and patient received low-dose oral Lasix. Sodium increased to 130 and is 133 today. 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 Cosyntropin stimulation test was negative. Urine sodium 82 and urine osmolality 238. TSH normal. 2. Small cell lung cancer. 3. Hypomagnesemia from GI losses. 4. C. difficile colitis on oral vancomycin. 5. UTI on antibiotics. 6. Left ureteral stone status post cystoscopy with stent insertion February 10, 2025. Plan: Continue off of IV fluids Encourage increased oral intake, particularly protein continue with urea Repeat labs in a.m.
--- NOTE | 2025-02-19 13:44 | P.PN ---
Subjective Progress Note Date: 02/19/25 Principal diagnosis: Patient reports doing well today overall. She states that she has had improvement in her abdominal pain and diarrhea over the past few days. Denies any new symptoms overnight. Understands plan for staying at least 1 more day and checking lab values in the morning to see if she needs additional electrolyte supplementation prior to discharge. Objective - Vital Signs Vital signs: Vital Signs Temp 98 F 02/19/25 07:25 Pulse 102 H 02/19/25 07:25 Resp 16 02/19/25 07:25 BP 107/65 02/19/25 07:25 Pulse Ox 94 L 02/19/25 07:25 FiO2 Intake & Output 02/18/25 02/19/25 02/19/25 18:59 06:59 18:59 Intake Total 1740 550 720 Balance 1740 550 720 Intake: Oral 1740 720 Other 550 Other: Voiding Method Toilet Toilet Toilet # Voids 5 2 4 # Bowel Movements 3 - Exam Vitals Signs Reviewed. General: Nontoxic, no distress, chronically ill-appearing Derm: Warm, dry Head: Atraumatic, normocephalic, symmetric Eyes: EOMI, no lid lag, anicteric sclera Mouth: No lip lesion, mucus membranes moist Cardiovascular: S1S2 reg, no murmur Lungs: CTA bilateral, no rhonchi, no rales, no accessory muscle use Abdominal: Soft, tenderness to palpation diffusely throughout abdomen, no guarding, no appreciable organomegaly Ext: No gross muscle atrophy, no edema, no contractures Neuro: CN II-XI grossly intact, no focal neuro deficits Psych: Alert, oriented, appropriate affectd - Labs CBC & Chem 7: 02/19/25 06:26 02/19/25 06:26 Labs: Abnormal Lab Results - Last 24 Hours (Table) 02/18/25 02/19/25 02/19/25 Range/Units 06:00 06:26 06:26 RBC 2.41 L (4.10-5.20) 10*6/uL Hgb 7.6 L (12.0-15.0) g/dL Hct 23.3 L (37.2-46.3) % RDW 16.9 H (11.5-14.5) % Plt Count 44 L D (140-440) 10*3/uL Immature Gran # 1.09 H (0.00-0.04) 10*3/uL Monocytes # (Manual) 1.06 H (0-1.0) k/uL Myelocytes # (Manual) 0.29 H (0) k/uL Promyelocytes # (Man) 0.11 H (0) k/uL Sodium 133 L (137-145) mmol/L Potassium 2.9 L (3.5-5.1) mmol/L BUN 26 H (7-17) mg/dL Creatinine 0.44 L (0.52-1.04) mg/dL Calcium 7.0 L (8.4-10.2) mg/dL Magnesium 1.3 L (1.6-2.3) mg/dL Assessment and Plan Assessment: Data Reviewed Today: Pertinent Labs: WBC 9.66, hemoglobin 7.6, platelets 44, sodium 133, creatinine 0.44, magnesium 1.3 Imaging: No new imaging Active: Sepsis secondary to infected nephrolithiasis status post ureteral stent C. difficile colitis Pancolitis, likely neutropenic enterocolitis with persistent intermittent fevers, now resolved Pancytopenia, WBC improved - ID following -Completed course of amoxicillin - Continue IV Flagyl 500 every 8 hours, also continued on oral vancomycin 500 every 6 hours - Discussed with ID, because this is the patient's first time infected with C. difficile, home RX of 250mg PO Q6hr x 2 weeks is appropriate at time of discharge. - Also on Questran 4 g twice daily - ID added psyllium husk 6 gm PO BID Persistent hyponatremia, component of hypovolemia and SIADH - Nephrology following - Normal saline stopped - Patient currently on 15 g twice daily urea - nephrology gave 1gm PO sodium chloride tablet on 02/17/2025 - Encourage increased oral intake, particularly protein per nephrology - Repeat Na today 133 - Continue to monitor BMP Hypokalemia - Patient received 80 mEq total potassium chloride p.o. today - Repeat BMP tomorrow. Hypomagnesemia - Given a total of 5 gm magnesium sulfate today - Repeat levels tomorrow Chronic: Lung cancer on chemotherapy-oncology following Atrial fibrillation, not on anticoagulation DVT ppx: Not indicated Code status: Full code Anticipated discharge place: Pending clinical course Anticipated discharge time: Pending clinical course I have seen and evaluated the patient today. Discussed with the resident and agree with the residents subjective and objective as documented in the note above. We discussed the assessment and plan as below. Sepsis secondary to VRE UTI + C. diff colitis: UCx E. coli + VRE. Completed course of Ampicillin for UTI. Flagyl 500 mg IV TID. Vancomycin 500 mg PO Q6H. Vancomycin 250 mg PO Q6H on discharge per ID. Obstructing L UVJ stone status post ureteral stent: Outpatient Urology follow up. Bicytopenia: Status post 2 PRBC. Transfuse if Hg < 7 or Plt < 10. Heme-Onc on board. Hyponatremia: Component of hypovolemia and SIAHD. Serum Osm 271. Urine Osm 238. Gifty 82. Nephrology recommending Urea 15g PO BID and DC fluids. Hypomagnesemia + Hypokalemia: Replace with 80 meq KCl + 5g Mag sulfate. Repeat labs in the AM. Lung CA: Oncology on board. Atrial fibrillation: Rate controlled. Not on AC. Patient wanting to go home. However, she has severe electrolyte derangements which is being corrected today. Plans for DC home tomorrow if K and Mag n ormalized.
--- NOTE | 2025-02-19 17:07 | P.PN ---
Subjective Progress Note Date: 02/19/25 Principal diagnosis: SCLC. C-diff infection In f/u today pt reports no stools since last night. Her right lower ribs are really painful for her, her abd pain is intermittent and pain meds help. She is starting to eat small amounts, frequently to help with abd discomfort after ea ting and that is helping. No other acute c/o. Objective - Vital Signs Vital signs: Vital Signs Temp 98.3 F 02/19/25 13:59 Pulse 104 H 02/19/25 13:59 Resp 16 02/19/25 13:59 BP 136/79 02/19/25 13:59 Pulse Ox 98 02/19/25 13:59 FiO2 Intake & Output 02/18/25 02/19/25 02/19/25 18:59 06:59 18:59 Intake Total 2653 006 0398 Balance 7878 319 4086 Intake: Oral 1740 1200 Other 550 Other: Voiding Method Toilet Toilet Toilet # Voids 5 2 4 # Bowel Movements 3 - Constitutional General appearance: Present: average body habitus, cooperative, no acute distress - EENT Eyes: Present: anicteric sclerae, EOMI ENT: Present: hearing grossly normal - Respiratory Details: resp unlabored - Cardiovascular Details: skin warm, well perfused, radial pulse 2+ - Peripheral edema leg Peripheral Edema: bilateral: None - Gastrointestinal General gastrointestinal: Present: decreased bowel sounds, soft, tenderness - Integumentary Integumentary: Present: pale - Neurologic Neurologic: Present: CNII-XII intact - Musculoskeletal Musculoskeletal Comment(s): right lower rib pain to palpation, no deformity felt - Psychiatric Psychiatric: Present: A&O x's 3, appropriate affect, intact judgment & insight - Labs CBC & Chem 7: 02/19/25 06:26 02/19/25 06:26 Labs: Abnormal Lab Results - Last 24 Hours (Table) 02/19/25 02/19/25 Range/Units 06:26 06:26 RBC 2.41 L (4.10-5.20) 10*6/uL Hgb 7.6 L (12.0-15.0) g/dL Hct 23.3 L (37.2-46.3) % RDW 16.9 H (11.5-14.5) % Plt Count 44 L D (140-440) 10*3/uL Immature Gran # 1.09 H (0.00-0.04) 10*3/uL Monocytes # (Manual) 1.06 H (0-1.0) k/uL Myelocytes # (Manual) 0.29 H (0) k/uL Sodium 133 L (137-145) mmol/L Potassium 2.9 L (3.5-5.1) mmol/L BUN 26 H (7-17) mg/dL Creatinine 0.44 L (0.52-1.04) mg/dL Calcium 7.0 L (8.4-10.2) mg/dL Magnesium 1.3 L (1.6-2.3) mg/dL Assessment and Plan (1) C. difficile colitis Current Visit: Yes Status: Acute Priority: High Code(s): A04.72 - ENTEROCOLITIS D/T CLOSTRIDIUM DIFFICILE, NOT SPCF RECUR SNOMED Code(s): 149978403 (2) Bicytopenia Current Visit: Yes Status: Acute Priority: High Code(s): D75.89 - OTHER SPECIFIED DISEASES OF BLOOD AND BLOOD-FORMING ORGANS SNOMED Code(s): 58298622 (3) Leukocytosis Current Visit: Yes Status: Acute Priority: Medium Code(s): D72.829 - ELEVATED WHITE BLOOD CELL COUNT, UNSPECIFIED SNOMED Code(s): 808416810 Plan: C-diff infection -underlying cause of diarrhea. Oral vanco per ID, metamucil started. No BM since last night. -On abx, ID following -Would like ID recommendations regarding if pt would need vacnomycin oral prophylaxis as she continues on IO alone Small cell lung cancer on chemotherapy/immunotherapy -s/p 5 cycle of chemo/IO with GCSF 02/05. -Recent restaging PET from 01/30/25 reporting overall improvement. Liver lesions mentioned have been present and stable. -Plan is to cont on IO alone -Treatment will not resume until pt current condition is adequately treated Chemo induced bicytopenia Hgb 7.6, plt 44,000 today. Stable overall. Anticipate continued recovery the further pt gets from chemo -Cont to monitor, CBC. Transfuse for Hgb < 7 or plt <10,000 unless pt is symptomatic Leukocytosis -2/2 G-CSF and acute infection. It is not worsening at this time -UTI and kidney stone. ID, Urology and Nephrology Xray ordered to assess rt rib pain
--- NOTE | 2025-02-19 18:13 | XR ---
EXAMINATION TYPE: XR chest 2V DATE OF EXAM: 02/19/2025 5:42 PM COMPARISON: Chest radiographs from 02/06/2025 TECHNIQUE: XR chest 2V Frontal and lateral views of the chest. CLINICAL INDICATION:Female, 74 years old with history of Right rib pain; FINDINGS: Lungs/Pleura: There is no evidence of pleural effusion, focal consolidation, or pneumothorax. Pulmonary vascularity: Unremarkable. Heart/mediastinum: Cardiomediastinal silhouette is unremarkable. Atherosclerotic calcifications are seen in the aorta. Musculoskeletal: No acute osseous pathology. Other findings: None Lines/Tubes: Right chest wall subclavian approach Mediport catheter with distal tip terminating in the high SVC. IMPRESSION: No acute cardiopulmonary disease/process. [facility], , 02/19/2025 6:11 PM
--- NOTE | 2025-02-19 22:28 | P.PN ---
Subjective Progress Note Date: 02/19/25 Principal diagnosis: Reason for follow-up is complicated UTI and C. 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 coli Enterococcus also developed C. difficile colitis prompting this consultation. On today's evaluation that is 02/19/2025,the patient remains to be afebrile, patient is on room air not requiring supplemental oxygen and denies any s hortness of breath no chest pain or cough.Patient denies having any nausea or vomiting, mention improvement with abdominal pain and did have resolution of diarrhea and no bowel movement today. Patient white count normal at 9.66 creatinine 0.44 blood culture repeat has been negative Objective - Vital Signs Vital signs: Vital Signs Temp 98.3 F 02/19/25 13:59 Pulse 104 H 02/19/25 13:59 Resp 16 02/19/25 13:59 BP 136/79 02/19/25 13:59 Pulse Ox 98 02/19/25 13:59 FiO2 Intake & Output 02/18/25 02/19/25 02/19/25 18:59 06:59 18:59 Intake Total 0397 455 0191 Balance 1215 431 7481 Intake: Oral 1740 1200 Other 550 Other: Voiding Method Toilet Toilet Toilet # Voids 5 2 4 # Bowel Movements 3 - Exam GENERAL DESCRIPTION: An elderly female lying in bed in no distress RESPIRATORY SYSTEM: Unlabored breathing , decreased breath sounds at bases HEART: S1 S2 regular rate and rhythm , ABDOMEN: Soft , no tenderness EXTREMITIES: No edema feet - Labs CBC & Chem 7: 02/19/25 06:26 02/19/25 06:26 Labs: Abnormal Lab Results - Last 24 Hours (Table) 02/19/25 02/19/25 Range/Units 06:26 06:26 RBC 2.41 L (4.10-5.20) 10*6/uL Hgb 7.6 L (12.0-15.0) g/dL Hct 23.3 L (37.2-46.3) % RDW 16.9 H (11.5-14.5) % Plt Count 44 L D (140-440) 10*3/uL Immature Gran # 1.09 H (0.00-0.04) 10*3/uL Monocytes # (Manual) 1.06 H (0-1.0) k/uL Myelocytes # (Manual) 0.29 H (0) k/uL Sodium 133 L (137-145) mmol/L Potassium 2.9 L (3.5-5.1) mmol/L BUN 26 H (7-17) mg/dL Creatinine 0.44 L (0.52-1.04) mg/dL Calcium 7.0 L (8.4-10.2) mg/dL Magnesium 1.3 L (1.6-2.3) mg/dL Assessment and Plan (1) C. difficile colitis Current Visit: Yes Status: Acute Priority: High Code(s): A04.72 - ENTEROCOLITIS D/T CLOSTRIDIUM DIFFICILE, NOT SPCF RECUR SNOMED Code(s): 103487382 (2) Sepsis Current Visit: Yes Status: Acute Code(s): A41.9 - SEPSIS, UNSPECIFIED ORGANISM SNOMED Code(s): 78530291 (3) UTI (urinary tract infection) Current Visit: Yes Status: Acute Code(s): N39.0 - URINARY TRACT INFECTION, SITE NOT SPECIFIED SNOMED Code(s): 41257783 Plan: 1patient with initial presentation to the hospital with sepsis in this patient who did have complicated UTI with left-sided ureteral stone requiring cystoscopy and left ureteral stent placement with urine culture showing E. coli and Enterococcus which is VRE however sensitive to ampicillin. 2patient clinical course also complicated by development of diarrhea and stool for C. difficile is positive that would complicate her overall treatment for complicated UTI 3-patient has received adequate antibiotic therapy for E. coli Enterococcus UTI. 4patient did have evidence of severe C. difficile colitis on the basis of CT as well as clinical findings 5patient is currently being treated with oral vancomycin 500 mg daily and IV Flagyl, patient mention improvement in her diarrhea with resolution with no bowel movement today improvement with abdominal pain currently being dealing with electrolytes abnormality once resolved plan is to finish therapy with oral vancomycin 250 mg every 6 hours for 10 to 14 days and close outpatient follow- up Dictation was produced using [employer] dictation software. please excuse any grammatical, word or spelling errors. Time with Patient: Less than 30
[2025-02-20 04:00] VITALS: RESP 16
[2025-02-20 07:32] LABS: African American GFR (CKD) >90 (>60 ml/min/1.73 sqM); Anion Gap 1 mmol/L; Blood Urea Nitrogen 29 mg/dL (7-17); Calcium 8.4 mg/dL (8.4-10.2); Carbon Dioxide 31 mmol/L (22-30); Chloride 96 mmol/L (98-107); Glucose 94 mg/dL (74-99); Magnesium 1.9 mg/dL (1.6-2.3); Non-African American GFR(CKD) >90 (>60 ml/min/1.73 sqM); Potassium 4.1 mmol/L (3.5-5.1); Sodium 128 mmol/L (137-145)
[2025-02-20 08:16] VITALS: TEMP 98.3
[2025-02-20 08:18] LABS: HCT 25.8 % (37.2-46.3); HGB 8.7 g/dL (12.0-15.0); MCH 32.3 pg (27.0-32.0); MCHC 33.7 g/dL (32.0-37.0); MCV 95.9 fL (80.0-97.0); RBC 2.69 10*6/uL (4.10-5.20); RDW 16.8 % (11.5-14.5); WBC 11.95 10*3/uL (4.50-10.00)
[2025-02-20 08:19] LABS: Platelet Count 70 10*3/uL (140-440)
[2025-02-20 08:23] LABS: Lymphocytes # (M) 1.79 k/uL (1.0-4.8); Monocytes # (M) 0.72 k/uL (0-1.0); Neutrophils # (M) 9.44 k/uL (1.3-7.7); Neutrophils % (M) 79 %; Total Cells Counted 100
[2025-02-20 08:24] LABS: Anisocytosis (M) Present
[2025-02-20] MEDS: FUROSEMIDE 20 MG TAB PO STA (13:09)
[2025-02-20 13:53] VITALS: BP 127/79; PULSE 91
--- NOTE | 2025-02-20 16:19 | P.PN ---
Subjective Progress Note Date: 02/20/25 Principal diagnosis: Reason for follow-up is complicated UTI and C. 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 coli Enterococcus also developed C. difficile colitis prompting this consultation. On today's evaluation that is 02/20/2025, the patient continues to be afebrile, the patient is on room air and breathing comfortably, the Pt denies having any chest pain or cough, the patient mention resolution of her abdominal pain as well as diarrhea did have a formed bowel movement this morning feeling better. Patient workup is 11.95, creatinine 0.43 blood culture repeat has been negative Objective - Vital Signs Vital signs: Vital Signs Temp 98.3 F 02/20/25 08:00 Pulse 96 02/20/25 08:00 Resp 16 02/20/25 08:00 BP 127/84 02/20/25 08:00 Pulse Ox 98 02/20/25 08:00 FiO2 Intake & Output 02/19/25 02/20/25 02/20/25 18:59 06:59 18:59 Intake Total 1900 240 Balance 1900 240 Intake: Intake, IV Titration 700 Amount Magnesium Sulfate-D5w Pmx 500 1 gm In Dextrose/Water 1 100ml.bag @ 100 mls/hr IVPB Q1H REGGIE Rx#: [id number] metroNIDAZOLE-NS PMX 500 200 mg In Saline 1 100ml.bag @ 100 mls/hr IVPB Q8HR REGGIE Rx#:[id number] Oral 1200 240 Other: Voiding Method Toilet Toilet # Voids 2 3 - Exam GENERAL DESCRIPTION: An elderly female lying in bed in no distress RESPIRATORY SYSTEM: Unlabored breathing , decreased breath sounds at bases HEART: S1 S2 regular rate and rhythm , ABDOMEN: Soft , no tenderness EXTREMITIES: No edema feet - Labs CBC & Chem 7: 02/20/25 06:00 02/20/25 06:00 Labs: Abnormal Lab Results - Last 24 Hours (Table) 02/20/25 02/20/25 Range/Units 06:00 06:00 WBC 11.95 H (4.50-10.00) 10*3/uL RBC 2.69 L (4.10-5.20) 10*6/uL Hgb 8.7 L (12.0-15.0) g/dL Hct 25.8 L (37.2-46.3) % MCH 32.3 H (27.0-32.0) pg RDW 16.8 H (11.5-14.5) % Plt Count 70 L D (140-440) 10*3/uL Immature Gran # 1.07 H (0.00-0.04) 10*3/uL Neutrophils # (Manual) 9.44 H (1.3-7.7) k/uL Sodium 128 L (137-145) mmol/L Chloride 96 L (98-107) mmol/L Carbon Dioxide 31 H (22-30) mmol/L BUN 29 H (7-17) mg/dL Creatinine 0.43 L (0.52-1.04) mg/dL Assessment and Plan (1) C. difficile colitis Current Visit: Yes Status: Acute Priority: High Code(s): A04.72 - ENTEROCOLITIS D/T CLOSTRIDIUM DIFFICILE, NOT SPCF RECUR SNOMED Code(s): 354576699 (2) Sepsis Current Visit: Yes Status: Acute Code(s): A41.9 - SEPSIS, UNSPECIFIED ORGANISM SNOMED Code(s): 87431825 (3) UTI (urinary tract infection) Current Visit: Yes Status: Acute Code(s): N39.0 - URINARY TRACT INFECTION, SITE NOT SPECIFIED SNOMED Code(s): 70706310 Plan: 1patient with initial presentation to the hospital with sepsis in this patient who did have complicated UTI with left-sided ureteral stone requiring cystoscopy and left ureteral stent placement with urine culture showing E. coli and Enterococcus which is VRE however sensitive to ampicillin. 2patient clinical course also complicated by development of diarrhea and stool for C. difficile is positive that would complicate her overall treatment for complicated UTI 3-patient has received adequate antibiotic therapy for E. coli Enterococcus UTI. 4patient did have evidence of severe C. difficile colitis on the basis of CT as well as clinical findings 5patient did have resolution of abdominal pain as well as diarrhea plan is to finish therapy with oral vancomycin 250 mg every 6 hours for 10 days and close outpatient follow-up Dictation was produced using [employer] software. please excuse any grammatical, word or spelling errors. Time with Patient: Less than 30
--- NOTE | 2025-02-20 16:47 | P.PN ---
Subjective Patient is seen for follow-up for hyponatremia. Serum sodium had improved to 133 and is 128 today Tolerating oral intake Diarrhea has improved. No complaints of shortness of breath. Objective - Vital Signs Vital signs: Vital Signs Temp 98.3 F 02/20/25 13:52 Pulse 91 02/20/25 13:52 Resp 16 02/20/25 13:52 BP 127/79 02/20/25 13:52 Pulse Ox 100 02/20/25 13:52 FiO2 Intake & Output 02/19/25 02/20/25 02/20/25 18:59 06:59 18:59 Intake Total 4789 384 5248 Output Total 6 Balance 6074 701 9219 Intake: Intake, IV Titration 700 Amount Magnesium Sulfate-D5w Pmx 500 1 gm In Dextrose/Water 1 100ml.bag @ 100 mls/hr IVPB Q1H REGGIE Rx#: [id number] metroNIDAZOLE-NS PMX 500 200 mg In Saline 1 100ml.bag @ 100 mls/hr IVPB Q8HR REGGIE Rx#:[id number] Oral 9831 481 9616 Output: Urine 5 Stool 1 Other: Voiding Method Toilet Toilet Toilet # Voids 2 3 - Exam Patient is awake, comfortable, no acute distress Examination lower extremity shows no significant edema [employer]UFACTURING QUAL[employer] TECH[employer]ICIAN exam grossly intact - Labs CBC & Chem 7: 02/20/25 06:00 02/20/25 06:00 Labs: Abnormal Lab Results - Last 24 Hours (Table) 02/20/25 02/20/25 Range/Units 06:00 06:00 WBC 11.95 H (4.50-10.00) 10*3/uL RBC 2.69 L (4.10-5.20) 10*6/uL Hgb 8.7 L (12.0-15.0) g/dL Hct 25.8 L (37.2-46.3) % MCH 32.3 H (27.0-32.0) pg RDW 16.8 H (11.5-14.5) % Plt Count 70 L D (140-440) 10*3/uL Immature Gran # 1.07 H (0.00-0.04) 10*3/uL Neutrophils # (Manual) 9.44 H (1.3-7.7) k/uL Sodium 128 L (137-145) mmol/L Chloride 96 L (98-107) mmol/L Carbon Dioxide 31 H (22-30) mmol/L BUN 29 H (7-17) mg/dL Creatinine 0.43 L (0.52-1.04) mg/dL Assessment and Plan Assessment: 1. Hyponatremia, hypovolemic. Initially improved with IV hydration. Sodium decreased to 127 while on normal saline. Fluids were discontinued and patient received low-dose oral Lasix. Sodium increased to 130 and is 133 today. 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 Cosyntropin stimulation test was negative. Urine sodium 82 and urine osmolality 238. TSH normal. 2. Small cell lung cancer. 3. Hypomagnesemia from GI losses. 4. C. difficile colitis on oral vancomycin. 5. UTI on antibiotics. 6. Left ureteral stone status post cystoscopy with stent insertion February 10, 2025. Plan: Continue off of IV fluids Encourage increased oral intake, particularly protein continue with urea Repeat low-dose oral Lasix today and patient should continue 20 mg of Lasix 2-3 times a week as outpatient.
--- NOTE | 2025-02-20 16:52 | P.DS ---
Providers Date of admission: 02/07/25 00:59 Expected date of discharge: 02/20/25 Attending physician: Raymundo River MD Consults: 02/07/25 00:28 Consult Physician Stat Consulting Provider: Reno Moser Consult Reason/Comments: Leukocytosis, history of small cell lung CA Do you want consulting provider notified?: Yes, Notify in am 02/07/25 03:07 Consult Physician Stat Consulting Provider: Derik Toro Consult Reason/Comments: Obstructing left ureterolithiasis Do you want consulting provider notified?: Yes, Notify in am 02/11/25 10:52 Consult Physician Routine Consulting Provider: Briseida Castillo Consult Reason/Comments: VRE UTI, on chemo Do you want consulting provider notified?: Yes 02/14/25 11:23 Consult Physician Routine Consulting Provider: Pierre Shanks Consult Reason/Comments: possible SIADH Do you want consulting provider notified?: Yes Primary care physician: Osmin Heller Hospital Course: Discharge Diagnosis: Sepsis secondary to infected nephrolithiasis status post ureteral stent C. difficile colitis Pancolitis, likely neutropenic enterocolitis with persistent intermittent fevers, now resolved Pancytopenia, WBC improved Hospital Course: 74-year-old female with a hx of small cell lung cancer, A-fib on chemotherapy. Patient coming in for evaluation of not feeling well she reports that she recently had her cycle of chemotherapy and she typically feels this way after the sessions she cannot specify what exactly bothering her but she is reporting right upper quadrant right side of the chest pain worse with mobility she denies any diarrhea denies any burning with micturition denies any hematuria denies any GI bleeding denies any coughing fevers or chills denies any chest pain otherwise or trouble breathing. She said this happens often especially after she receives her injections and chemotherapy Patient presented to the ED with laboratory findings suggesting infectious process and met sepsis criteria. Patient was afebrile on initial presentation but was intermittently tachycardic. The patient began having fevers on 02/10/2025 and was intermittently febrile until 02/14/2025. WBC: 63.3, hemoglobin 9.3 on initial presentation. Urinalysis positive for leukocyte esterase, white blood cells, bacteria, hyaline casts, mucus. Urine culture grew E. coli and Enterococcus faecalis VRE. CT scan showed no evidence of diverticulitis but did show obstructing 6 mm left UVJ stone and nonobstructing 7 mm right lower pole renal stones. Urology was consulted due to fevers UTI and leukopenia decision was made for stent insertion in left ureter on 02/10/2025. Patient was also found to be positive for C. difficile on 02/10/2025. Patient was given intravenous vancomycin, ceftriaxone, ampicillin initially but was switched to amoxicillin and completed a course during her stay. The patient was placed on IV Flagyl on 02/15/2025 and remained on this until time of discharge. She was placed on oral vancomycin when C. difficile was detected. Patient's WBC count varied throughout her stay, as mentioned above it was initially very high but then dropped to 2.51 on 02/10/2025 but increased again to 11.15 on 02/15/2025. Patient was anemic throughout her stay and required PRBC transfusions on 02/10/2025 and 02/16/2025. Patient was also thrombocytopenic down to a low of 13 on 02/16/2025. The patient was found to have various electrolyte abnormalities during her visit. She required potassium and magnesium supplementation several times. She was also found to be hyponatremic likely due to hypovolemia with a possible component of SIADH. Nephrology was consulted and the patient's hyponatremia was treated with fluid restriction and oral urea. The patient had increased pain on 02/14/[address] with oral contrast was completed demonstrating pancolitis correlate for typhlitis slightly progressed compared to prior CT but was negative for ureteral obstruction. The patient's pain and diarrhea severity varied since 02/14/2025 but she showed improvement overall and felt well enough to be sent home on 02/20/2025. Patient was sent home on oral vancomycin for 14 days per ID recommendations. She was also sent home on Lasix 20 mg twice a week per nephrology recommendations. She is recommended to limit her fluid intake to 2 L/day and she will follow-up with infectious disease, nephrology, PCP, heme-onc, and urology. A repeat BMP and magnesium level are scheduled for 2 days from time of discharge. Patient seen and examined at bedside. Vital signs reviewed and stable. Physical examination: Vital signs reviewed General: Nontoxic, no distress, chronically ill-appearing Derm: Warm, dry Head: Atraumatic, normocephalic, symmetric Eyes: EOMI, no lid lag, anicteric sclera Mouth: No lip lesion, mucus membranes moist Cardiovascular: S1S2 reg, no murmur Lungs: CTA bilateral, no rhonchi, no rales, no accessory muscle use Abdominal: Soft, tenderness to palpation diffusely throughout abdomen, no guarding, no appreciable organomegaly Ext: No gross muscle atrophy, no edema, no contractures Neuro: CN II-XI grossly intact, no focal neuro deficits Psych: Alert, oriented, appropriate affectd A total of greater than 30 minutes of time were spent preparing this complex discharge summary. Patient was discharged on 02/20/2025 Odell Martin MD PGY-1 TY Dictation was produced using [employer] dictation software. please excuse any grammatical, word or spelling errors. I saw and evaluated the patient during the sellers and critical portions of this encounter, and discussed the case in detail with the resident author of this note, I agree with the Assessment and Plan, and my changes, if any, are highlighted in blue. Patient Condition at Discharge: Fair Plan - Discharge Summary New Discharge Prescriptions: New Vancomycin HCl 250 mg PO Q6H 14 Days #56 cap Furosemide [Lasix] 20 mg PO MOWE #15 tab Psyllium Husk 100% [Metamucil Packet] 6 gm PO BID #0 packet Continue Loperamide [Imodium] 2 mg PO Q2HR PRN cap PRN Reason: Loose Stool Acetaminophen Tab [Tylenol] 650 mg PO Q6HR PRN tab PRN Reason: Mild Pain Or Fever > 100.5 Omeprazole Magnesium [PriLOSEC OTC] 20 mg PO DAILY Multivit-Min/Iron/Folic/Lutein [Centrum Silver Women Tablet] 1 tab PO DAILY Ondansetron [Zofran] 4 - 8 mg PO Q4H PRN PRN Reason: Nausea Magnesium Oxide [Mag-Ox] 400 mg PO DAILY #7 tab Prochlorperazine [Compazine] 10 mg PO Q6H PRN #30 tab PRN Reason: Nausea And Vomiting traMADol HCL 50 mg PO Q6H PRN 30 Days #90 tab PRN Reason: Pain Potassium Chloride ER [K-Dur 20] 20 meq PO DAILY HYDROcodone/APAP 10-325MG [[place] 10-325] 1 tab PO TID PRN PRN Reason: Pain Discharge Medication List Ondansetron [Zofran] 4 - 8 mg PO Q4H PRN 11/29/24 [History] Acetaminophen Tab [Tylenol] 650 mg PO Q6HR PRN tab 12/09/24 [Rx] Loperamide [Imodium] 2 mg PO Q2HR PRN cap 12/09/24 [Rx] Magnesium Oxide [Mag-Ox] 400 mg PO DAILY #7 tab 12/09/24 [Rx] Prochlorperazine [Compazine] 10 mg PO Q6H PRN #30 tab 12/09/24 [Rx] Omeprazole Magnesium [PriLOSEC OTC] 20 mg PO DAILY 12/30/24 [History] traMADol HCL 50 mg PO Q6H PRN 30 Days #90 tab 01/15/25 [Rx] Potassium Chloride ER [K-Dur 20] 20 meq PO DAILY 01/20/25 [History] HYDROcodone/APAP 10-325MG [[place] 10-325] 1 tab PO TID PRN 02/07/25 [History] Multivit-Min/Iron/Folic/Lutein [Centrum Silver Women Tablet] 1 tab PO DAILY 02/07/25 [History] Vancomycin HCl 250 mg PO Q6H 14 Days #56 cap 02/17/25 [Rx] Furosemide [Lasix] 20 mg PO MOWE #15 tab 02/20/25 [Rx] Psyllium Husk 100% [Metamucil Packet] 6 gm PO BID #0 packet 02/20/25 [Rx] Follow up Appointment(s)/Referral(s): Reno Moser [STAFF PHYSICIAN] - 03/11/25 2:30 pm (Appointment at the [facility].) Lisa Tan MD [STAFF PHYSICIAN] - 04/06/25 10:20 am Osmin Heller DO [Primary Care Provider] - 1-2 days (Ofiice closed for the day, please call [facility] to schedule a follow-up appt.) [facility], [NON-STAFF] - 1 Week Briseida Castillo MD [STAFF PHYSICIAN] - 1 Week (Infectious doctor-C diff Please call when the office is open to schedule a follow-up appt.) Derik Toro MD [STAFF PHYSICIAN] - 1 Week (Urology office r/t urinary stent. Office closed, please call [facility] to make a follow-up appt.) Ambulatory/Diagnostic Orders: Basic Metabolic Panel [LAB.AMB] Time Frame: 2 Days, Location: None Selected Magnesium [LAB.AMB] Time Frame: 2 Days, Location: None Selected Patient Instructions/Handouts: Furosemide (By mouth), Vancomycin (By mouth) Activity/Diet/Wound Care/Special Instructions: Fluid restriction to 2 Liters per day Discharge Disposition: HOME SELF-CARE
== END 2025-02-20 17:19 | disposition home or self-care (01) | DRG 854 ==
LOC: EC 20:31 → 5NMEDONC 02-07 00:59
PROVIDERS: ADMIT Internal Medicine; ATTEND Internal Medicine
PROC: 0T778DZ Dilation of Left Ureter with Intraluminal Device, Via Natural or Artificial Opening Endoscopic (ICD-10-PCS; principal; 2025-02-10 12:40)
DX: A41.81 Sepsis due to Enterococcus (principal); A04.72 Enterocolitis due to Clostridium difficile, not specified as recurrent; D61.818 Other pancytopenia; E22.2 Syndrome of inappropriate secretion of antidiuretic hormone; D70.9 Neutropenia, unspecified; C7A.1 Malignant poorly differentiated neuroendocrine tumors; E83.51 Hypocalcemia; F32.A Depression, unspecified; I10 Essential (primary) hypertension; K76.9 Liver disease, unspecified; N20.1 Calculus of ureter; Z16.21 Resistance to vancomycin; I48.91 Unspecified atrial fibrillation; A41.51 Sepsis due to Escherichia coli [E. coli]; E86.0 Dehydration; E83.42 Hypomagnesemia; K21.9 Gastro-esophageal reflux disease without esophagitis; E86.1 Hypovolemia; E87.6 Hypokalemia; H54.7 Unspecified visual loss; D64.81 Anemia due to antineoplastic chemotherapy; G44.209 Tension-type headache, unspecified, not intractable; T45.1X5A Adverse effect of antineoplastic and immunosuppressive drugs, initial encounter; Z87.891 Personal history of nicotine dependence; Z79.899 Other long term (current) drug therapy
CPT/HCPCS: 36415; 71046; 74177; 76770; 80048; 80053; 81001; 82533; 83605; 83735; 83930; 83935; 84295; 84300; 84443; 85025; 85027; 86850; 86900; 86901; 86920; 87040; 87077; 87086; 87186; 87324; 87636; 93005; 96361; 96365; 96366; 96368; 96375; 99285

== ENCOUNTER → 2025-02-23 | Outpatient (CLI) | payer MEDICARE ==
[2025-02-23 15:56] LABS: Magnesium 1.5 mg/dL (1.5-2.4)
[2025-02-23 15:57] LABS: Anion Gap 11.50 mmol/L (4.00-12.00); BUN/Creat Ratio 16.29 Ratio (12.00-20.00); Blood Urea Nitrogen 11.4 mg/dL (9.0-27.0); Calcium 8.6 mg/dL (8.7-10.3); Carbon Dioxide 26.5 mmol/L (21.6-31.8); Chloride 96 mmol/L (96-109); Glucose 88 mg/dL (70-110); Potassium 4.7 mmol/L (3.5-5.5); Sodium 134 mmol/L (135-145)
[2025-02-23 16:03] LABS: HCT 30.8 % (37.2-46.3); HGB 9.5 g/dL (12.0-15.0); MCH 31.3 pg (27.0-32.0); MCHC 30.8 g/dL (32.0-37.0); MCV 101.3 FL (80.0-97.0); NRBC Per 100 WBC 0 X 10*3/uL (0.00-0.01); Platelet Count 282 X 10*3/uL (140-440); RBC 3.04 X 10*6/uL (4.10-5.20); RDW 18.2 % (11.5-14.5); WBC 12.97 X 10*3/uL (4.50-10.00)
== END | disposition home or self-care (01) ==
LOC: LABWHC1 09:41
PROVIDERS: ATTEND Internal Medicine
DX: E87.1 Hypo-osmolality and hyponatremia (principal); E83.51 Hypocalcemia; D64.81 Anemia due to antineoplastic chemotherapy
CPT/HCPCS: 36415; 80048; 83735; 85027

== ENCOUNTER → 2025-03-13 | Outpatient (CLI) | payer MEDICARE ==
--- NOTE | 2025-03-13 13:53 | MR ---
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 COMPARISON: MR brain 09/23/2024, MRI brain/orbits 12/05/2023, CT brain 07/21/2022. TECHNIQUE: Multi planar, multi sequence imaging was performed through the brain. The patient was then given 7 cc of Gadobutrol intravenously and multi planar, T1 fat-saturation images were obtained. FINDINGS: The boucher-white junctions, ventricular system, basal cisterns appear unremarkable for level of cerebra l atrophy. Age-appropriate mild to moderate diffuse cerebral volume loss. Diffusion-weighted imaging shows no evidence of restricted diffusion to suggest acute/subacute infarct. Intracranial arterial fl ow voids are maintained. Midline structures show no abnormality. Similar patchy and confluent areas o f high T2/FLAIR signal intensity are seen within the subcortical and periventricular supratentorial w sameer matter. Additional involvement of the central ashlee. The susceptibility weighted images . A singl e focus of microhemorrhage identified within the right temporal lobe. After administration of gadolin ium, no abnormal enhancement is seen. The bone marrow signal is within normal limits. The paranasal sinuses and globes are unremarkable. IMPRESSION: 1. No evidence of intracranial mass, acute/subacute infarct, or abnormal enhancement to suggest metas tasis. 2. Similar moderate nonspecific white matter changes, likely related to small vessel ischemic disease . [facility], , 03/13/2025 1:51 PM
--- NOTE | 2025-03-13 15:03 | CT ---
EXAMINATION TYPE: CT chest abdomen w con DATE OF EXAM: 03/13/2025 COMPARISON: PET CT scan 01/30/2025, CT abdomen pelvis 02/07/2025 HISTORY: Lung CA. CT DLP: 577.8 mGycm. Automated Exposure Control for Dose Reduction was Utilized. CONTRAST: CT scan of the thorax, and abdomen is performed with IV Contrast, patient injected with 100 ml mL of Isovue 300. FINDINGS: LUNGS: There is a large right lung mass lower lobe measuring 2.9 x 2.3 cm. Slightly increased in size compared to prior PET scan recommended measured 2.1 x 2.1 cm. Highly suspicious for malignancy. Emph ysematous changes. Additional subpleural micronodule has a benign appearance. There is a punctate 1 mm micronodule adjac ent to the fissure right lower lobe image 21 series 5. No consolidative pneumonia or pulmonary edema. Small right pleural effusion. There is a hiatal hernia.. MEDIASTINUM: There is pathologic, hilar and mediastinal lymphadenopathy with the largest node in the mediastinum measuring short axis of 2.9 cm. Similar to prior PET scan.. HEART: Cardiomegaly is demonstrated. Moderate coronary artery calcifications present. Tiny pericardi al effusion. OTHER: No additional significant abnormality is seen. LIVER/GB: Numerous intrahepatic lesions compatible with metastasis and involvement of all lobes and s egments. Stable from most recent exam.. PANCREAS: No significant abnormality is seen. SPLEEN: No significant abnormality is seen. ADRENALS: Nonspecific stable bilateral adrenal gland thickening.. KIDNEYS: Nonobstructing right renal calculus. Simple appearing right renal cyst. Left ureteral stent noted in position.. Bilateral subcentimeter renal hypodensities too small to characterize but statist ically most likely related to simple cyst. BOWEL: Moderate to large stool burden correlate for constipation. Small hiatal hernia with some debri s within the distal esophagus. Correlate for reflux. LYMPH NODES: No greater than 1cm abdominal or pelvic lymph nodes are appreciated. OSSEOUS STRUCTURES: Degenerative changes of the spine. Generalized demineralization. Diffuse osteopen ia. OTHER: Subcentimeter right thyroid nodule.. IMPRESSION: 1. There is slight interval progression size of the right lower lobe mass suspicious for malignancy n ow measuring 2.9 cm in greatest axis first 2.1 cm. 2. Stable numerous intrahepatic lesions compatible with metastases. Stable appearing mediastinal and right hilar lymphadenopathy 3. Correlate for constipation. 4. No definitive destructive lesions concordant with the PET CT scan finding to suggest osseous metas tasis. Note PET scan may have greater sensitivity for detecting early osseous metastasis. [facility], , 03/13/2025 3:00 PM
== END | disposition home or self-care (01) ==
LOC: RADMRIMAIN 09:39
PROVIDERS: ATTEND Internal Medicine Hematology & Oncology
DX: C34.31 Malignant neoplasm of lower lobe, right bronchus or lung (principal); J90 Pleural effusion, not elsewhere classified; I31.39 Other pericardial effusion (noninflammatory); G89.3 Neoplasm related pain (acute) (chronic); R59.0 Localized enlarged lymph nodes
CPT/HCPCS: 71260; 74160; 70553; Q9967; A9585